=== PATIENT | male | born 1945 | race Caucasian/White ===

== ENCOUNTER 2021-09-19 10:38 | Outpatient (REF) | payer MEDICARE, SELFPAY ==
[2021-09-19 11:02] LABS: MANUAL DIFF FLAG NO
[2021-09-19 11:50] LABS: Basophils Percent Auto 0.6 % (0-2); Eosinophils Absolute Auto 0.2 X10*3/uL (0.0-0.4); Hematocrit 44.4 % (42.0-52.0); Imm Gran Abs Auto 0.03 X10*3/uL (0.00-0.03); Imm Gran Pct Auto 0.6 % (0.0-0.4); Lymphocytes Absolute Auto 1.4 X10*3/uL (1.2-4.9); Mean Corpuscular HGB Conc 31.5 g/dl (31.0-36.0); Mean Corpuscular Hemoglobin 26.4 pg (27.0-33.0); Mean Corpuscular Volume 83.8 fL (80.0-98.0); Mean Platelet Volume 10.8 fL (9.4-12.4); Monocytes Absolute Auto 0.5 X10*3/uL (0.1-1.2); Monocytes Percent Auto 9.4 % (2-11); Neutrophils Percent Auto 59.4 % (45-73); Platelet Count 157 X10*3/uL (160-400); Red Cell Distribution Width 15.9 % (11.0-16.0); White Blood Count 5.1 X10*3/uL (4.8-10.8)
[2021-09-19 12:15] LABS: Creatinine Urine 221.51 mg/dL; Microalbum/Creatinine Ratio Ur 114.2 ug/mg cr
[2021-09-19 12:23] LABS: Alanine Aminotransferase 21 U/L (0-40); Albumin Level 4.3 g/dL (3.5-5.0); Alkaline Phosphatase 96 U/L (39-117); Anion Gap 13 (12-20); Aspartate Amino Transferase 26 U/L (5-37); Bilirubin Total 0.8 mg/dL (0.0-1.0); Blood Urea Nitrogen 17 mg/dL (9-16); Calcium 9.8 mg/dL (8.4-10.2); Carbon Dioxide 27 mmol/L (22-29); Chloride 104 mmol/L (96-108); Cholesterol 135 mg/dL; Estimated Glomerular Filt Rate 54; Glucose Random 125 mg/dL (60-115); HDL Cholesterol 29 mg/dL; LDL Cholesterol Calculated 83 mg/dl; Potassium 5.2 mmol/L (3.3-5.1); Sodium 139 mmol/L (135-145); Total Protein 7.5 g/dL (6.5-8.0); Triglycerides 119 mg/dL
[2021-09-19 12:32] LABS: Free T4 (Free Thyroxine) 1.03 ng/dL (0.71-1.85); Thyroid Stimulating Hormone 3.99 uIU/mL (0.32-4.0)
[2021-09-19 12:50] LABS: Folate 6.7 ng/mL (> or = 4.0); Vitamin B12 355 pg/mL (200-900)
== END 2021-09-19 10:39 | disposition home or self-care (01) ==
LOC: HO.LAB 10:38
PROVIDERS: PCP Internal Medicine; Visit Provider Internal Medicine
DX: Z00.00 Encounter for general adult medical examination without abnormal findings (principal); E11.65 Type 2 diabetes mellitus with hyperglycemia; R13.10 Dysphagia, unspecified
CPT/HCPCS: 36415; 80053; 80061; 82043; 82607; 82746; 84439; 84443; 85025

== ENCOUNTER 2021-09-25 08:42 | Outpatient (REF) | payer MEDICARE, SELFPAY ==
--- NOTE | ~2021-09-25 | XR_ITS ---
EXAMINATION: XR CHEST CLINICAL INFORMATION: Short of breath COMPARISON: None TECHNIQUE: 2 views of the chest were obtained. FINDINGS: The lungs are well-expanded and clear. The heart size and pulmonary vascularity is normal. There is mild spondylosis dorsal spine. No lytic process seen. XR/XR chest 2V IMPRESSION: Unremarkable chest examination.
== END 2021-09-25 08:43 | disposition home or self-care (01) ==
LOC: HO.XRAY 08:42
PROVIDERS: PCP Internal Medicine; Visit Provider Internal Medicine
DX: R06.02 Shortness of breath (principal)
CPT/HCPCS: 71046

== ENCOUNTER → 2021-10-06 08:38 | Outpatient (REF) | payer MEDICARE, SELFPAY ==
--- NOTE | ~2021-10-06 | NM_ITS ---
Myocardial perfusion study Indication: Atrial fibrillation to evaluate for myocardial ischemia Technique: The patient was brought in for a Lexiscan perfusion study on 10/06/2021. Patient performed low-level exercise and was injected 0.4 mg of Lexiscan intravenously. Within a minute of injection, 30 mCi of sestamibi was given intravenously. Images were obtained using the SPECT gamma camera interlaced with the gating device. Images were obtained in supine position. Resting perfusion study was performed on 10/07/2021. Patient was administered 30 mCi of sestamibi intravenously at rest. Images were then obtained in supine position. Images obtained with and without CT attenuation. Total DLP 111 mGy-cm. Images were processed with the software and compared side to side in short axis, horizontal long axis and vertical long axis views. Findings: The stress perfusion study showed non attenuated images show mildly reduced uptake in the basal inferior and inferoseptal wall of the LV myocardium. Remainder of the LV myocardium is normally perfused. Attenuation corrected images show minimally uptake in the apex of the LV myocardium. The gated study was not performed due to underlying atrial fibrillation. LV cavity is normal in size. Resting study shows no change in perfusion pattern compared to stress perfusion study. Gating wasn't performed due to underlying atrial fibrillation The findings are consistent with no reversible defect suggestive of ischemia. Normal myocardial perfusion. NM/NM reji perf SPECT rest & str Impression: 1. Myocardial perfusion imaging study shows likely normal myocardial perfusion 2. Gated LVEF is was not obtained due to atrial fibrillation 3. Transient ischemic dilatation not present EKG is nondiagnostic for ischemia
--- NOTE | 2021-10-06 08:41 | CA_ITS ---
Acquisition Time: 2021-10-06 09:51:11 Total Exercise Time: 00:02:00 Test Indications: SOB Medications: SEE CHART Protocol: LEXISCAN Max HR: 114 BPM 79% of Pred: 143 BPM Max BP: 136/086 mmHG Max Work Load: 1.0 METS Pharmacological stress test with lexiscan injection, while sitting and kicking his legs, without anginal symptoms, with isolated PVCs, with normotensive response to injection, with nondiagnostic EKG for ischemia. Nuclear images pending. Test reviewed with Dr Chapin. Pt noted to have new finding of atrial fibrillation today. Resting heart rate < 100, easily rises with activity, such as kicking his legs while sitting. No report of palpitations. EKG ordered and obtained. Message sent to Dr Peters. Referred By: Melba Tobin Overread By: MELBA TOBIN
--- NOTE | 2021-10-06 09:51 | ECG_ITS ---
Test Reason : RHYTHM CHANGES Blood Pressure : / mmHG Vent. Rate : 102 BPM Atrial Rate : 000 BPM P-R Int : 000 ms QRS Dur : 064 ms QT Int : 346 ms P-R-T Axes : 000 057 254 degrees QTc Int : 450 ms Atrial fibrillation with rapid ventricular response Nonspecific T wave abnormality Abnormal ECG When compared with ECG of 12-FEB-2020 08:45, Atrial fibrillation has replaced Sinus rhythm Nonspecific T wave abnormality, worse in Inferior leads Nonspecific T wave abnormality, worse in Lateral leads Referred By: Melba Tobin Electronically Signed By:Tyler Chapin
== END ==
LOC: HO.CARD 08:38
PROVIDERS: Visit Provider Internal Medicine
DX: I48.91 Unspecified atrial fibrillation (principal); R13.10 Dysphagia, unspecified
CPT/HCPCS: 78452; 93005; 93017; A9500; J0280; J2785

== ENCOUNTER 2021-10-22 07:50 | Outpatient (REF) | payer MEDICARE, SELFPAY ==
--- NOTE | ~2021-10-22 | FL_ITS ---
EXAMINATION: XR FLUOROSCOPY UPPER GI WITH AIR CLINICAL INFORMATION: Dysphagia. COMPARISON: None TECHNIQUE: Routine upper GI air-contrast study in upright and lying position was performed. In addition a barium swallow was performed in upright view with barium coated turkey and thick barium. FINDINGS: Following oral administration of thick barium and effervescent granules there is normal propagation of bolus from the oral cavity through the pharynx, esophagus into stomach except for a prominent cricoesophageal sphincter. No laryngeal penetration or aspiration seen. On oral administration of thick barium and barium coated turkey in upright view there is normal oral mastication with propagation of bolus from the oral cavity through the pharynx, esophagus into stomach without any evidence of obstruction or narrowing. On placing patient supine and prone lying the course, caliber and peristalsis of the stomach, duodenal bulb and the sweep is normal. The mucosal pattern of stomach, duodenal bulb and the sweep is normal. There is mild gastroesophageal reflux but no hiatal hernia seen. FLUOROSCOPY TIME: 2.2 minutes. DOSE AREA PRODUCT: 38.493 uGy-m2 (microgray-meter squared). FL/FL upper GI w air IMPRESSION: Mild gastroesophageal reflux without hiatal hernia. Rest of the upper GI exam is unremarkable. Prominent cricoesophageal sphincter. No obstructive or constricting lesions seen in the esophagus. No laryngeal penetration or any barium retention in the valleculae or piriform sinuses.
== END 2021-10-22 07:51 | disposition home or self-care (01) ==
LOC: HO.XRAY 07:50
PROVIDERS: Visit Provider Internal Medicine
DX: R13.10 Dysphagia, unspecified (principal)
CPT/HCPCS: 74246

== ENCOUNTER → 2021-11-20 09:18 | Outpatient (REF) | payer MEDICARE, SELFPAY ==
--- NOTE | 2021-11-20 09:21 | CA_ITS ---
Transthoracic Echocardiogram Patient (Last, First, Middle): Augustus Reeder, Gender: Male Date of : 1945 Age: 75 Procedure Date: 11/20/2021 Procedure Type: Transthoracic Echocardiogram Location: OP Height: 165.1 cm Weight: 90.72 kg BSA: 1.98 m2 Heart Rate: bpm BP: 120 / 85 mmHg Customer Care Team Coach: YR/TO Referring MD: Carmen Peters MD Corrugator Helper: Leonel Deleon MD Symptoms: I48.91 - Unspecified atrial fibrillation Study Quality: Technically Difficult/Contrast ECG Rhythm: Atrial Fibrillation Conclusions: - 1. Normal LV systolic function 2. Limited evaluation of cardiac valves with normal cardiac valvular Doppler 3. Mildly dilated ascending aorta at 4 cm 4. Normal RV systolic pressure 5. No gross pericardial effusion Findings Procedure Information Contrast agent, definity, is being given per protocol without apparent complications. Left Ventricle Normal left ventricular size, thickness, and systolic function. The visually estimated ejection fraction is between 60-65%. Diastolic function is indeterminate on the basis of available data. Right Ventricle The right ventricle was not well visualized. Atria The left atrium was not well visualized. Interatrial shunt cannot be excluded. The right atrium was not well visualized. Aortic Valve The aortic valve was not well visualized. There is mild calcification of the aortic valve. There is no aortic valve stenosis. There is no aortic valve regurgitation. Mitral Valve The mitral valve was not well visualized. There is no mitral valve regurgitation. There is no mitral valve stenosis. Pulmonic Valve The pulmonic valve was not well visualized. Tricuspid Valve The tricuspid valve was not well visualized. There is trace tricuspid valve regurgitation. The right ventricular systolic pressure is normal. The right ventricular systolic pressure is 23 mmHg. There is no evidence of pulmonary hypertension. Great Vessels The pulmonary artery was not well visualized. There is mild dilatation of the ascending aorta measuring 4.00 cm. Venous The inferior vena cava is normal in size and collapses greater than 50% with inspiration. Pericardium/Pleural There is no evidence of pericardial effusion. Prior Study Comparison No prior study available for comparison. Measurements 2D Linear Measurements IVSd: 1.02 0.6-0.9/0.6-1.0 cm LVIDd: 3.53 3.9-5.3/4.2-5.9 cm LVIDd Index: 1.78 2.4-3.2/2.2-3.1 cm/m2 LVIDs: 2.24 2.0-3.6 cm LVPWd: 1.05 0.7-1.1 cm LA Diam: 3.30 2.7-3.8/3.0-4.0 cm LAIDs Index: 1.67 1.5-2.3 cm/m2 LV Mass: 136.89 67-162/88-224 g LV Mass Index: 69.14 43-95/49-115 g/m2 LVOT Diam: 2.00 3.0+(-)1.3 cm 2D Systolic Function EF 4C: 62.90 >55% EF 2C: 64.50 >55% EF BiP: 63.40 >55% Aortic Valve AoV Pk Ignacio: 1.08 AoV Mn Ignacio: 0.77 AoV VTI: 0.22 AoV Pk Grad: 5.00 Aov Mn Grad: 3.00 TAMARA Cont.VTI: 2.47 LVOT LVOT Pk Ignacio: 0.71 LVOT Mn Ignacio: 0.51 LVOT VTI: 0.18 LVOT Pk Grad: 2.00 LVOT Mn Grad: 1.00 LVOT Diam: 2.00 LVOT Area: 3.14 Right Ventricle TAPSE (mm): 18.30 TVS' Ignacio: 9.46 Tricuspid Valve TR Pk Ignacio: 2.24 TR Pk Grad: 20.00 RA Press: 3.00 RVSP: 23.00 Great Vessels Aorta Sinus of Valsalva: 3.31 2.0-3.[address] Ridge: 2.26 1.7-3.4 cm Ao Asc: 4.00 2.1-3.4 cm Ao Arch: 3.50 Updated in Other Vendor System with Status of Final Leonel Deleon MD electronically signed on 11/20/2021 11:52:42 AM with status of Final
== END ==
LOC: HO.CARD 09:18
PROVIDERS: Visit Provider Internal Medicine
DX: I48.91 Unspecified atrial fibrillation (principal)
CPT/HCPCS: 93306; Q9957

== ENCOUNTER → 2021-11-25 12:48 | Outpatient (BNVA) | payer MEDICARE, SELFPAY | PROVIDERS: PCP Internal Medicine; Referring Provider Internal Medicine; Visit Provider Internal Medicine | DX: I48.19 Other persistent atrial fibrillation (principal); I10 Essential (primary) hypertension; E11.8 Type 2 diabetes mellitus with unspecified complications | CPT/HCPCS: 93005; 99202 ==

== ENCOUNTER 2021-12-04 08:48 | Day surgery (SDC) | payer MEDICARE, SELFPAY ==
[2021-11-28 14:42] VITALS: BMI 34.6
--- NOTE | 2021-12-03 09:18 | HO.ANESPROP2 ---
Documented by User: Kortney Madera NP 12/03/21 09:20 HPI - Anesthesia Eval Consult details Narrative: 76yo M for Cardioversion Eliquis for afib PMFSH Active Problems Active Problems: All Active Problems (Updated 11/28/21 @ 14:42 by Cande Corado RN) Facial dermatitis (Acute) Somatic dysfunction of right sacroiliac joint (Acute) Rash (Acute) Dysphagia (Acute) SOB (shortness of breath) on exertion (Acute) Cognitive impairment (Acute) Afib (Acute) Persistent atrial fibrillation (Acute) Essential hypertension (Acute) Type 2 diabetes mellitus with unspecified complications (Acute) Annual physical exam (Acute) Anxiety and depression (Acute) Hypercholesterolemia (Acute) Obesity (BMI 30-39.9) (Acute) Hypertension (Acute) Type 2 diabetes mellitus with hyperglycemia (Acute) Past Medical History Medical History (Updated 12/03/21 @ 09:20 by Kortney Madera NP) Afib Annual physical exam Anxiety and depression COVID-19 vaccine series completed Hypercholesterolemia Hypertension Non Hodgkin's lymphoma Obesity (BMI 30-39.9) Peptic ulcer disease Thrombocytopenia Type 2 diabetes mellitus with hyperglycemia Vitamin D deficiency Family History Family History Father Lung cancer Mother Breast cancer Sister Breast cancer Brother No problems noted. Sister No problems noted. Son No problems noted. Daughter No problems noted. Surgical History Surgical History (Updated 11/28/21 @ 14:15 by Cande Corado RN) H/O colonoscopy H/O lymph node biopsy History of esophagogastroduodenoscopy (EGD) History of shoulder surgery Hx of cataract extraction Social History Social History Housing: House Are you a primary nurse wound care to a significant other at home: No Do you presently have visiting nurse or other home services: No Alcohol intake: never Patient Tobacco Use Status: Never used Tobacco e-Cigarette/Vaping Use: Never Used Second Hand Smoke Exposure: No service: No Current occupational status: retired Meds Allergies Allergy/AdvReac Type Severity Reaction Status Date / Time gabapentin AdvReac Intermediate lethargy Verified 11/28/21 14:39 lisinopril AdvReac Intermediate Cough Verified 11/28/21 14:39 metformin AdvReac Intermediate lethargy Verified 11/28/21 14:39 Home Medications Medication Instructions Recorded Confirmed Last Taken Type cholecalciferol (vitamin D3) 50 50 mcg PO DAILY 09/17/20 11/28/21 Unknown History mcg (2,000 unit) capsule alclometasone 0.05 % topical cream 1 appl TOPICAL BID 09/19/21 11/28/21 Unknown History clindamycin 1 %-niacinamide 4 % 1 ea TOPICAL DAILY 09/19/21 11/28/21 Unknown History lotion metronidazole 0.75 % lotion 1 appl TOPICAL BID 09/19/21 11/28/21 Unknown History Exam Exam Date and Time: December 03, 202118 Height,Weight and Vital Signs: Height 5 ft 5 in Weight 94.347 kg Narrative Narrative: EKG 11/2021 atrial fibrillation at 90/Min; PVCs versus aberrant conduction.? Nonspecific ST-T changes. ECHO 11/2021 Conclusions: - 1.? Normal LV systolic function? 2. Limited evaluation of cardiac valves with normal cardiac? ? ? valvular Doppler ? 3. Mildly dilated ascending aorta at 4 cm? 4.? Normal RV systolic pressure? 5.? No gross pericardial effusion? Airway Loose/Missing/Broken Teeth: Lower Assessment and Plan Assessment Anesthesia Assessment: Chart Reviewed Documented by User: Chris Conde MD 12/04/21 13:30 HPI - Anesthesia Eval Consult details Narrative: 76yo M for Cardioversion post nasal drip, asymptomatic currently dysphagia Eliquis for afib [facility] Past Medical History Medical History (Updated 12/03/21 @ 09:20 by Kortney Madera NP) Afib Annual physical exam Anxiety and depression COVID-19 vaccine series completed Hypercholesterolemia Hypertension Non Hodgkin's lymphoma Obesity (BMI 30-39.9) Peptic ulcer disease Thrombocytopenia Type 2 diabetes mellitus with hyperglycemia Vitamin D deficiency Family History Family History Father Lung cancer Mother Breast cancer Sister Breast cancer Brother No problems noted. Sister No problems noted. Son No problems noted. Daughter No problems noted. Family history of problems with anesthesia: No Surgical History Surgical History (Updated 11/28/21 @ 14:15 by Cande Corado RN) H/O colonoscopy H/O lymph node biopsy History of esophagogastroduodenoscopy (EGD) History of shoulder surgery Hx of cataract extraction History of Problems with Anesthesia: No Social History Social History Housing: House Are you a primary nurse wound care to a significant other at home: No Do you presently have visiting nurse or other home services: No Alcohol intake: never Patient Tobacco Use Status: Never used Tobacco e-Cigarette/Vaping Use: Never Used Second Hand Smoke Exposure: No service: No Current occupational status: retired [employer] Allergies Allergy/AdvReac Type Severity Reaction Status Date / Time gabapentin AdvReac Intermediate lethargy Verified 11/28/21 14:39 lisinopril AdvReac Intermediate Cough Verified 11/28/21 14:39 metformin AdvReac Intermediate lethargy Verified 11/28/21 14:39 Home Medications Medication Instructions Recorded Confirmed Last Taken Type cholecalciferol (vitamin D3) 50 50 mcg PO DAILY 09/17/20 11/28/21 Unknown History mcg (2,000 unit) capsule alclometasone 0.05 % topical cream 1 appl TOPICAL BID 09/19/21 11/28/21 Unknown History clindamycin 1 %-niacinamide 4 % 1 ea TOPICAL DAILY 09/19/21 11/28/21 Unknown History lotion metronidazole 0.75 % lotion 1 appl TOPICAL BID 09/19/21 11/28/21 Unknown History Exam Airway Mallampati Class: III TM Dist: >3cm Partial: Upper and Lower Loose/Missing/Broken Teeth: Yes (Poor dentition , anchors in situ ) Heart: Irregular Lungs: b/l breath sounds Assessment and Plan Assessment Anesthesia Assessment: Anesthesia Plan Discussed Final Anesthetic Review Family History of Problems with Anesthesia: No History of Problems with Anesthesia: No NPO: Yes ASA Class: III Final Preanesthetic Review: Meds/Allgs Chart Reviewed, Consent Obtained/Reviewed and Anes Risks/Benef Reviewed Patient Risk: High Procedure Risk: Intermediate Anesthetic Plan Anesthetic Plan: MAC: Disposition: Standard PACU
[2021-12-04 09:04] VITALS: BP 173/98; PULSE 101; RESP 17; TEMP 36.2; O2SAT 97
[2021-12-04 09:17] LABS: Glucose, Whole Blood 129 mg/dL (60-115)
[2021-12-04] MEDS: Lactated Ringers 1,000 ML 50 ML IVCONT (09:36)
--- NOTE | 2021-12-04 10:31 | PC.NURSE ---
repeat b/p 184/106 left 173/105 losartan ordered by rip sawyer
--- NOTE | 2021-12-04 10:33 | MHC.SHP ---
Pre-Procedural Eval Section A Date of Service: 12/04/21 The patient is an INPATIENT: No Section B Chief Complaint: afib Details of Present Illness: Review recent office note Allergies: Allergies Allergy/AdvReac Type Severity Reaction Status Date / Time gabapentin AdvReac Intermediate lethargy Verified 11/28/21 14:39 lisinopril AdvReac Intermediate Cough Verified 11/28/21 14:39 metformin AdvReac Intermediate lethargy Verified 11/28/21 14:39 Review of Systems Review of Systems Comment: No changes since last seen. Exam Exam Comment: No changes since last seen. Plan I have reviewed the history and physical and performed a pertinent physical examination on my patient. No changes have occurred unless specified.
--- NOTE | 2021-12-04 10:53 | ECG_ITS ---
Test Reason : S/P CARDIOVERSION Blood Pressure : / mmHG Vent. Rate : 079 BPM Atrial Rate : 079 BPM P-R Int : 196 ms QRS Dur : 068 ms QT Int : 380 ms P-R-T Axes : 071 042 -21 degrees QTc Int : 435 ms Sinus rhythm with occasional Premature ventricular complexes Nonspecific T wave abnormality Abnormal ECG When compared with ECG of 06-OCT-2021 09:54, Sinus rhythm has replaced Atrial fibrillation Referred By: Daniel Del Rosario Electronically Signed By:DANIEL DEL ROSARIO
--- NOTE | 2021-12-04 10:54 | HO.CARDIVERS ---
Cardioversion Procedure Note Cardioversion Date of Procedure: 12/04/2021 Ordering Provider: Dr. Su. Performing Provider: Dr. Su. Indication for Procedure: Symptomatic atrial fibrillation Pre-Op Diagnosis: Atrial fibrillation Post-Op Diagnosis: Sinus rhythm History: See full office note Consent: Informed consent obtained. Procedure: After informed consent was obtained, patient was taken to the PACU. The patient was then positioned appropriately. The cardioversion pads were placed in anteroposterior position. Once under anesthesia, 120 joules of synchronized shock was administered. The rhythm converted from atrial fibrillation to sinus rhythm. Patient remained in sinus rhythm after the end of procedure. Complications: None. Impression: Successful cardioversion from atrial fibrillation to sinus rhythm. Recommendations: Start Amiodarone. Will arrange outpatient follow-up. Blood pressure was running high and he will need additional medications as outpatient.
[2021-12-04 11:03] VITALS: BP 147/89; PULSE 76; RESP 19; TEMP 36.4; O2SAT 98
[2021-12-04 11:08] VITALS: BP 137/83; PULSE 74; RESP 17; O2SAT 98
[2021-12-04 11:13] VITALS: BP 153/82; PULSE 73; RESP 17; O2SAT 98
[2021-12-04] MEDS: Amiodarone HCL 200 MG TABLET 400 MG PO (11:15)
[2021-12-04 11:18] VITALS: BP 145/79; PULSE 70; RESP 17; O2SAT 97
[2021-12-04 11:33] VITALS: BP 144/77; PULSE 71; RESP 17; TEMP 36.2; O2SAT 97
== END 2021-12-04 11:55 | disposition home or self-care (01) ==
PROVIDERS: PCP Internal Medicine; Visit Provider Internal Medicine
PROC: 5A2204Z Restoration of Cardiac Rhythm, Single (ICD-10-PCS; principal; 2021-12-04 10:30)
DX: I48.19 Other persistent atrial fibrillation (principal); Z79.01 Long term (current) use of anticoagulants; I10 Essential (primary) hypertension; E11.65 Type 2 diabetes mellitus with hyperglycemia; Z79.84 Long term (current) use of oral hypoglycemic drugs; Z79.899 Other long term (current) drug therapy
CPT/HCPCS: 82947; 92960; 93005; J2370

== ENCOUNTER 2021-12-05 22:02 | Inpatient (IN) | payer MEDICARE, SELFPAY ==
[2021-12-05] VITALS (7 sets, daily range): BP systolic 144–198; BP diastolic 81–94; PULSE 94–102; RESP 18–36; TEMP 36.6; O2SAT 85–979; BMI 34.6
--- NOTE | ~2021-12-05 | XR_ITS ---
EXAMINATION: XR CHEST CLINICAL INFORMATION: Shortness of breath COMPARISON: Chest x-ray 09/25/2021 TECHNIQUE: Frontal portable view of the chest was obtained. 2300 hours FINDINGS: Heart size is normal. Cardiac mediastinal contours are normal. There is diffuse increased interstitial lung markings consistent with interstitial edema. No pleural effusion. No focal consolidation. XR/XR chest 1V IMPRESSION: Increased lung markings consistent with interstitial edema.
--- NOTE | 2021-12-05 22:07 | ECG_ITS ---
Test Reason : CP Blood Pressure : / mmHG Vent. Rate : 101 BPM Atrial Rate : 101 BPM P-R Int : 204 ms QRS Dur : 068 ms QT Int : 326 ms P-R-T Axes : 077 046 004 degrees QTc Int : 422 ms Sinus tachycardia with Premature supraventricular complexes Nonspecific ST and T wave abnormality Abnormal ECG When compared with ECG of 04-DEC-2021 11:00, Premature ventricular complexes are no longer Present Premature supraventricular complexes are now Present Referred By: Lucina Kumar Electronically Signed By:Tyler Chapin
--- NOTE | 2021-12-05 22:18 | ED.GENADULT ---
HPI - General Adult General Chief complaint: General Medical Stated complaint: SOB Time Seen by Provider: 12/05/21 22:07 Source: patient and family Mode of arrival: ambulatory History of Present Illness HPI narrative: 76-year-old male with history of diabetes, hypertension,anxiety, depression, atrial fibrillation and status post cardioversion yesterday, 12/04, and states that he experienced chest pain yesterday that began to improve but then returned today with increasing shortness of breath. Patient denies any new cough, palpitations, history of COPD your asthma and denies any home oxygen use. patient also reports abdominal discomfort. Related Data Home Medications Medication Instructions Recorded Confirmed cholecalciferol (vitamin D3) 50 50 mcg PO DAILY 09/17/20 11/28/21 mcg (2,000 unit) capsule alclometasone 0.05 % topical cream 1 appl TOPICAL BID 09/19/21 11/28/21 clindamycin 1 %-niacinamide 4 % 1 ea TOPICAL DAILY 09/19/21 11/28/21 lotion metronidazole 0.75 % lotion 1 appl TOPICAL BID 09/19/21 11/28/21 Previous Rx's Medication Instructions Recorded atorvastatin 40 mg tablet 40 mg PO DAILY #90 tab 09/19/21 glipizide 5 mg tablet, extended 5 mg PO BID #180 tab 09/19/21 release 24 hr metoprolol succinate 100 mg 100 mg PO DAILY 90 Days #90 tab 09/19/21 tablet,extended release 24 hr pioglitazone 15 mg tablet 15 mg PO DAILY 90 Days #90 tab 09/19/21 apixaban 5 mg tablet (Eliquis) 5 mg PO BID 90 Days #180 tab 11/25/21 amiodarone 200 mg tablet 200 mg PO DAILY #90 tab 12/04/21 amiodarone 400 mg tablet 400 mg PO BID 14 Days #28 tab 12/04/21 amlodipine 5 mg tablet (Norvasc) 5 mg PO DAILY 90 Days #90 tab 12/04/21 losartan 50 mg tablet 50 mg PO DAILY 90 Days #90 tab 12/04/21 Allergies Allergy/AdvReac Type Severity Reaction Status Date / Time gabapentin AdvReac Intermediate lethargy Verified 11/28/21 14:39 lisinopril AdvReac Intermediate Cough Verified 11/28/21 14:39 metformin AdvReac Intermediate lethargy Verified 04/22/22 14:39 Review of Systems Review of Systems: Pertinent positives and negatives as stated in HPI and 10 point review of systems is otherwise negative. PMFSH Past Medical History Source: nursing notes reviewed Medical History Afib Annual physical exam Anxiety and depression COVID-19 vaccine series completed Hypercholesterolemia Hypertension Non Hodgkin's lymphoma Obesity (BMI 30-39.9) Peptic ulcer disease Thrombocytopenia Type 2 diabetes mellitus with hyperglycemia Vitamin D deficiency Surgical History H/O colonoscopy H/O lymph node biopsy History of esophagogastroduodenoscopy (EGD) History of shoulder surgery Hx of cataract extraction Family History Family History Father Lung cancer Mother Breast cancer Sister Breast cancer Brother No problems noted. Sister No problems noted. Son No problems noted. Daughter No problems noted. Social History Social History Housing: House Are you a primary physician locums urgent care to a significant other at home: No Do you presently have visiting nurse or other home services: No Alcohol intake: never Patient Tobacco Use Status: Never used Tobacco e-Cigarette/Vaping Use: Never Used Second Hand Smoke Exposure: No Advance Directives: No Advance Directives Information Provided: No service: No Current occupational status: retired Physical Exam ED Vital Signs: Vital Signs - 24 hr 12/05/21 22:10 12/05/21 22:14 12/05/21 22:16 Temperature 98 F Pulse Rate 102 H 99 Respiratory Rate 18 36 H Blood Pressure 198/87 H 198/87 H Pulse Oximetry 85 L 95 95 12/05/21 22:26 12/05/21 22:47 12/05/21 23:07 Temperature Pulse Rate 97 96 94 Respiratory Rate 25 H 25 H 24 H Blood Pressure 185/94 H 174/81 H 144/83 H Pulse Oximetry 97 98 97 BMI result Body Mass Index 34.6 VITAL SIGNS: Reviewed. GENERAL: Well developed, well nourished, in no acute distress. HEAD: Normocephalic/atraumatic EYES: PERRLA, EOMI EARS: Ext canals without abnormality OROPHARYNX: no oral lesions noted, posterior pharynx clear LUNGS: Bibasilar decrease in breath sounds with obvious rales, tachypnea noted. SpO2<85> and then placed on 4 L via nasal cannula with improvement to 95% CARDIOVASCULAR: Regular rate and rhythm without noted murmurs, no JVD or lower extremity edema. ABDOMEN: Soft, non-tender, non-distended with bowel sounds. MUSCULOSKELETAL: No tenderness, deformities, or effusions noted on gross inspection. EXTREMITIES: No cyanosis, clubbing or edema. SKIN: Inspection of the skin reveals no rashes NEUROLOGIC: Alert and oriented x 4. Strength and sensation to light touch were grossly intact x 4. Course Course Course Narrative: 76-year-old male with history and clinical presentation most suggestive of acute CHF exacerbation. And on re-evaluation after placed on BiPAP and nitro patient states his breathing has significantly improved and states that he feels much better. On review of investigations there is no leukocytosis, patient's BNP is noted to be elevated in conjunction with clinical findings on lung auscultation and chest x-ray that further support CHF exacerbation. In addition, patient is noted to be COVID-19 positive. Patient was informed of all results and findings, he received both nitropaste as well as Lasix for his CHF exacerbation. Will attempt to titrate off of BiPAP as patient is feeling better. I do not suspect acute cardiac ischemia. There is no leukocytosis and suspect that patient's abdominal symptoms are secondary to his acute respiratory failure with tachypnea and increased work of breathing. Abdomen is otherwise benign. I discussed this case with the inpatient hospitalist who accepts admission. Medical Decision Making Lab Data Result diagrams: 12/05/21 22:25 12/05/21 22:25 Labs: Lab Results 12/05/21 12/05/21 12/05/21 Range/Units 22:24 22:24 22:24 WBC (4.8-10.8) X10*3/uL RBC (4.60-5.80) X10*6/uL Hgb (14.0-18.0) g/dl Hct (42.0-52.0) % MCV (80.0-98.0) fL MCH (27.0-33.0) pg MCHC (31.0-36.0) g/dl RDW (11.0-16.0) % Plt Count (160-400) X10*3/uL MPV (9.4-12.4) fL Immature Gran % (Auto) (0.0-0.4) % Neut % (Auto) (45-73) % Lymph % (Auto) (20-40) % [place] % (Auto) (2-11) % Eos % (Auto) (0-4) % Baso % (Auto) (0-2) % Lymph # (Auto) (1.2-4.9) X10*3/uL [place] # (Auto) (0.1-1.2) X10*3/uL Eos # (Auto) (0.0-0.4) X10*3/uL Baso # (Auto) (0.0-0.2) X10*3/uL Abs Immat Gran (auto) (0.00-0.03) X10*3/uL Absolute Neuts (auto) (2.0-8.3) x10*3/uL Absolute Nucleated RBC (0.0-0.012) X10*3/uL Nucleated RBC % (auto) (0.0-0.2) /100WBC PT 20.2 H (9.9-13.0) SEC INR 1.8 H (0.9-1.1) Sodium (135-145) mmol/L Potassium (3.3-5.1) mmol/L Chloride (96-108) mmol/L Carbon Dioxide (22-29) mmol/L Anion Gap (12-20) BUN (9-16) mg/dL Creatinine (0.5-1.4) mg/dL Estim Creat Clear Calc Estimated GFR Random Glucose (60-115) mg/dL Calcium (8.4-10.2) mg/dL Total Bilirubin (0.0-1.0) mg/dL AST (5-37) U/L ALT (0-40) U/L Alkaline Phosphatase (39-117) U/L Troponin I High Sens 6.5 (<3.5-35.0) ng/L B-Natriuretic Peptide 347 H (<100) pg/mL Total Protein (6.5-8.0) g/dL Albumin (3.5-5.0) g/dL COVID-19 (YURIY) (Negative) COVID-19 Clin Com Influenza Type A (DICKSON) (Negative) Influenza Type B (DICKSON) (Negative) Influenza A & B Note 12/05/21 12/05/21 12/05/21 Range/Units 22:25 22:25 22:34 WBC 9.8 (4.8-10.8) X10*3/uL RBC 4.90 (4.60-5.80) X10*6/uL Hgb 13.4 L (14.0-18.0) g/dl Hct 40.8 L (42.0-52.0) % MCV 83.3 (80.0-98.0) fL MCH 27.3 (27.0-33.0) pg MCHC 32.8 (31.0-36.0) g/dl RDW 15.0 (11.0-16.0) % Plt Count 138 L (160-400) X10*3/uL MPV 10.4 (9.4-12.4) fL Immature Gran % (Auto) 0.7 H (0.0-0.4) % Neut % (Auto) 75.5 H (45-73) % Lymph % (Auto) 13.5 L (20-40) % [place] % (Auto) 9.2 (2-11) % Eos % (Auto) 0.8 (0-4) % Baso % (Auto) 0.3 (0-2) % Lymph # (Auto) 1.3 (1.2-4.9) X10*3/uL [place] # (Auto) 0.9 (0.1-1.2) X10*3/uL Eos # (Auto) 0.1 (0.0-0.4) X10*3/uL Baso # (Auto) 0.0 (0.0-0.2) X10*3/uL Abs Immat Gran (auto) 0.07 H (0.00-0.03) X10*3/uL Absolute Neuts (auto) 7.4 (2.0-8.3) x10*3/uL Absolute Nucleated RBC 0.000 (0.0-0.012) X10*3/uL Nucleated RBC % (auto) 0.0 (0.0-0.2) /100WBC PT (9.9-13.0) SEC INR (0.9-1.1) Sodium 132 L (135-145) mmol/L Potassium 4.6 (3.3-5.1) mmol/L Chloride 99 (96-108) mmol/L Carbon Dioxide 23 (22-29) mmol/L Anion Gap 15 (12-20) BUN 20 H (9-16) mg/dL Creatinine 1.37 (0.5-1.4) mg/dL Estim Creat Clear Calc 46.9 Estimated GFR 50 Random Glucose 295 H D (60-115) mg/dL Calcium 9.2 D (8.4-10.2) mg/dL Total Bilirubin 1.1 H (0.0-1.0) mg/dL AST 28 (5-37) U/L ALT 26 (0-40) U/L Alkaline Phosphatase 107 (39-117) U/L Troponin I High Sens (<3.5-35.0) ng/L B-Natriuretic Peptide (<100) pg/mL Total Protein 7.5 (6.5-8.0) g/dL Albumin 4.2 (3.5-5.0) g/dL COVID-19 (YURIY) (Negative) COVID-19 Clin Com Influenza Type A (DICKSON) Negative (Negative) Influenza Type B (DICKSON) Negative (Negative) Influenza A & B Note See Note 12/05/21 Range/Units 22:34 WBC (4.8-10.8) X10*3/uL RBC (4.60-5.80) X10*6/uL Hgb (14.0-18.0) g/dl Hct (42.0-52.0) % MCV (80.0-98.0) fL MCH (27.0-33.0) pg MCHC (31.0-36.0) g/dl RDW (11.0-16.0) % Plt Count (160-400) X10*3/uL MPV (9.4-12.4) fL Immature Gran % (Auto) (0.0-0.4) % Neut % (Auto) (45-73) % Lymph % (Auto) (20-40) % [place] % (Auto) (2-11) % Eos % (Auto) (0-4) % Baso % (Auto) (0-2) % Lymph # (Auto) (1.2-4.9) X10*3/uL [place] # (Auto) (0.1-1.2) X10*3/uL Eos # (Auto) (0.0-0.4) X10*3/uL Baso # (Auto) (0.0-0.2) X10*3/uL Abs Immat Gran (auto) (0.00-0.03) X10*3/uL Absolute Neuts (auto) (2.0-8.3) x10*3/uL Absolute Nucleated RBC (0.0-0.012) X10*3/uL Nucleated RBC % (auto) (0.0-0.2) /100WBC PT (9.9-13.0) SEC INR (0.9-1.1) Sodium (135-145) mmol/L Potassium (3.3-5.1) mmol/L Chloride (96-108) mmol/L Carbon Dioxide (22-29) mmol/L Anion Gap (12-20) BUN (9-16) mg/dL Creatinine (0.5-1.4) mg/dL Estim Creat Clear Calc Estimated GFR Random Glucose (60-115) mg/dL Calcium (8.4-10.2) mg/dL Total Bilirubin (0.0-1.0) mg/dL AST (5-37) U/L ALT (0-40) U/L Alkaline Phosphatase (39-117) U/L Troponin I High Sens (<3.5-35.0) ng/L B-Natriuretic Peptide (<100) pg/mL Total Protein (6.5-8.0) g/dL Albumin (3.5-5.0) g/dL COVID-19 (YURIY) Positive A (Negative) COVID-19 Clin Com See Note Influenza Type A (DICKSON) (Negative) Influenza Type B (DICKSON) (Negative) Influenza A & B Note ECG Data Attestation: I personally reviewed and interpreted this ECG as follows: Prior ECG tracings: available for review Interpretation: Sinus tachycardia, HR-101, no STEMI, QRS/QTC are within normal limits Critical Care Time Critical Care Time Critical Care Time: Yes Total Critical Care Time: 30 Attestation: I personally attest to this time spent taking care of the patient. Discharge Plan Discharge Clinical Impression: Acute respiratory failure with hypoxia, CHF exacerbation, Lab test positive for detection of COVID-19 virus Patient Disposition: Admitted As Inpatient Prescriptions: No Action amiodarone 400 mg tablet 400 mg PO BID 14 Days Qty: 28 0RF amiodarone 200 mg tablet 200 mg PO DAILY Qty: 90 0RF losartan 50 mg tablet 50 mg PO DAILY 90 Days Qty: 90 3RF amlodipine [Norvasc] 5 mg tablet 5 mg PO DAILY 90 Days Qty: 90 1RF cholecalciferol (vitamin D3) 50 mcg (2,000 unit) capsule 50 mcg PO DAILY 0RF alclometasone 0.05 % cream 1 appl topical BID 0RF clindamycin-niacinamide 1-4 % lotion 1 ea topical DAILY 0RF metronidazole 0.75 % lotion 1 appl topical BID 0RF atorvastatin 40 mg tablet 40 mg PO DAILY Qty: 90 3RF pioglitazone 15 mg tablet 15 mg PO DAILY 90 Days Qty: 90 2RF metoprolol succinate 100 mg tablet extended release 24 hr 100 mg PO DAILY 90 Days Qty: 90 2RF glipizide 5 mg tablet extended release 24 hr 5 mg PO BID Qty: 180 2RF Eliquis 5 mg tablet 5 mg PO BID 90 Days Qty: 180 3RF
[2021-12-05] MEDS: Nitroglycerin 2 % Oint 1 GM Packet 0.5 INCH TRANSDERMA (22:23)
[2021-12-05 22:30] LABS: Basophils Percent Auto 0.3 % (0-2); Eosinophils Absolute Auto 0.1 X10*3/uL (0.0-0.4); Eosinophils Percent Auto 0.8 % (0-4); Mean Corpuscular Volume 83.3 fL (80.0-98.0); PLT CLUMP 1; SCAN SMEAR FLAG 1
[2021-12-05 22:32] LABS: Hematocrit 40.8 % (42.0-52.0); Hemoglobin 13.4 g/dl (14.0-18.0); Imm Gran Abs Auto 0.07 X10*3/uL (0.00-0.03); Imm Gran Pct Auto 0.7 % (0.0-0.4); Lymphocytes Absolute Auto 1.3 X10*3/uL (1.2-4.9); Lymphocytes Percent Auto 13.5 % (20-40); Mean Corpuscular HGB Conc 32.8 g/dl (31.0-36.0); Mean Corpuscular Hemoglobin 27.3 pg (27.0-33.0); Mean Platelet Volume 10.4 fL (9.4-12.4); Monocytes Absolute Auto 0.9 X10*3/uL (0.1-1.2); Monocytes Percent Auto 9.2 % (2-11); Neutrophils Absolute Auto 7.4 x10*3/uL (2.0-8.3); Neutrophils Percent Auto 75.5 % (45-73)
[2021-12-05 22:37] LABS: INTERNATIONAL NORM RATIO 1.8 (0.9-1.1); Prothrombin Time 20.2 SEC (9.9-13.0)
[2021-12-05 22:41] LABS: MANUAL DIFF FLAG NO; Platelet Count 138 X10*3/uL (160-400); White Blood Count 9.8 X10*3/uL (4.8-10.8)
[2021-12-05 22:46] LABS: Alanine Aminotransferase 26 U/L (0-40); Albumin Level 4.2 g/dL (3.5-5.0); Alkaline Phosphatase 107 U/L (39-117); Anion Gap 15 (12-20); Aspartate Amino Transferase 28 U/L (5-37); Bilirubin Total 1.1 mg/dL (0.0-1.0); Blood Urea Nitrogen 20 mg/dL (9-16); Calcium 9.2 mg/dL (8.4-10.2); Carbon Dioxide 23 mmol/L (22-29); Chloride 99 mmol/L (96-108); Creatinine Clr Calc Pharmacy 46.9; Estimated Glomerular Filt Rate 50; Glucose Random 295 mg/dL (60-115); Potassium 4.6 mmol/L (3.3-5.1); Sodium 132 mmol/L (135-145); Total Protein 7.5 g/dL (6.5-8.0)
[2021-12-05 22:51] LABS: B Type Natriuretic Peptide 347 pg/mL (<100); Troponin-I High Sensitivity 6.5 ng/L (<3.5-35.0)
[2021-12-05 22:52] LABS: COVID-19 Test Positive (Negative)
[2021-12-05 23:00] LABS: IDNOW Serial# 16C4AD1C; Influenza A Negative (Negative); Influenza B2 Negative (Negative)
[2021-12-05] MEDS: Furosemide 100 MG/10 ML VIAL 60 MG IVPUSH (23:10)
--- NOTE | 2021-12-05 23:30 | PM.IMHP ---
History of Present Illness Date of Service: 12/05/21 Chief Complaint: Shortness of breath 76-year-old male with a past medical history of hypertension, hyperlipidemia, diabetes, history of AFib on Eliquis status post cardioversion on 12/04/2021, anxiety, depression, vitamin-D deficiency, peptic ulcer disease, non-Hodgkin's lymphoma, dysphagia presented to the hospital today with a chief complaint of shortness of breath. Patient reported that he had cardioversion for AFib yesterday. For the past 1 day he has been having shortness of breath which has been gradually worsening. Complains of dyspnea on exertion. Also has sided mild chest discomfort. Denies any cough or sputum production. Denies any fevers and chills. Denies any GI symptoms. Denies any recent travel or sick contacts. Review of all other systems is negative except mentioned above ER course: Per ER team patient on presentation noted to have coarse breath sounds with rales; saturating 85% on room air; tachypneic; patient was placed on BiPAP briefly; lab showed elevated proBNP, chest x-ray showed congestion; patient was given nitro patch briefly, Lasix. Patient was transitioned to nasal cannula, BiPAP removed. Also noted to have COVID-19 positive. Admitted to the hospital for further management PMFSH Medical History Afib Annual physical exam Anxiety and depression COVID-19 vaccine series completed Hypercholesterolemia Hypertension Non Hodgkin's lymphoma Obesity (BMI 30-39.9) Peptic ulcer disease Thrombocytopenia Type 2 diabetes mellitus with hyperglycemia Vitamin D deficiency Family History Father Lung cancer Mother Breast cancer Sister Breast cancer Brother No problems noted. Sister No problems noted. Son No problems noted. Daughter No problems noted. Surgical History H/O colonoscopy H/O lymph node biopsy History of esophagogastroduodenoscopy (EGD) History of shoulder surgery Hx of cataract extraction Social History Housing: House Are you a primary career resource specialist to a significant other at home: No Do you presently have visiting nurse or other home services: No Alcohol intake: never Patient Tobacco Use Status: Never used Tobacco e-Cigarette/Vaping Use: Never Used Second Hand Smoke Exposure: No Advance Directives: No Advance Directives Information Provided: No service: No Current occupational status: retired Meds Allergies Allergy/AdvReac Type Severity Reaction Status Date / Time gabapentin AdvReac Intermediate lethargy Verified 11/28/21 14:39 lisinopril AdvReac Intermediate Cough Verified 11/28/21 14:39 metformin AdvReac Intermediate lethargy Verified 11/28/21 14:39 Active Medications: Current Medications Dexamethasone Sodium Phosphate (Dexamethasone Sod Phosphate 4 Mg/Ml Vial) 6 mg IVPUSH DAILY [facility] Dextrose (Dextrose 50 % 25 Gm/50 Ml Syringe) 25 gm IVPUSH Q15M PRN; Protocol PRN Reason: per Hypoglycemia Standing Ord. Glucose (Glucose Gel 15 Gm Gel..Gram.) 15 gm PO Q15M PRN; Protocol PRN Reason: per Hypoglycemia Standing Ord. Insulin Human Lispro (Insulin Lispro 100 Unit/Ml 3 Ml Vial) 0 unit SUBCUT QIDACHS [facility]; Protocol Home Medications Medication Instructions Recorded Confirmed Last Taken Type cholecalciferol (vitamin D3) 50 50 mcg PO DAILY 09/17/20 11/28/21 Unknown History mcg (2,000 unit) capsule alclometasone 0.05 % topical cream 1 appl TOPICAL BID 09/19/21 11/28/21 Unknown History clindamycin 1 %-niacinamide 4 % 1 ea TOPICAL DAILY 09/19/21 11/28/21 Unknown History lotion metronidazole 0.75 % lotion 1 appl TOPICAL BID 09/19/21 11/28/21 Unknown History Physical Exam Vital Signs and Narrative: Vital Signs: Last Vital Signs Temp 98 F 12/05/21 22:10 Pulse 94 12/05/21 23:07 Resp 24 H 12/05/21 23:07 BP 144/83 H 12/05/21 23:07 Pulse Ox 97 12/05/21 23:07 BMI result Body Mass Index 34.6 Gen: Appears be in no acute distress. On supplemental oxygen. Speaks in full sentences. HEENT: NCAT, Moist mucosa. Pulmonary: Coarse breath sounds. CVS: Normal S1-S2 Abdomen: BS+, Soft, Nontender Extremities: Warm well perfused Neuro: Alert and awake. Grossly nonfocal Results Labs CBC and Chem 7: 12/06/21 06:01 12/06/21 06:01 Labs: Laboratory Results - last 24 hr 12/05/21 12/05/21 12/05/21 22:24 22:24 22:24 MCV MCH MCHC RDW Plt Count MPV Immature Gran % (Auto) Neut % (Auto) Lymph % (Auto) [place] % (Auto) Eos % (Auto) Baso % (Auto) Lymph # (Auto) [place] # (Auto) Eos # (Auto) Baso # (Auto) Abs Immat Gran (auto) Absolute Neuts (auto) Absolute Nucleated RBC Nucleated RBC % (auto) PT 20.2 H INR 1.8 H Anion Gap Estim Creat Clear Calc Estimated GFR Random Glucose Calcium Total Bilirubin AST ALT Alkaline Phosphatase Troponin I High Sens 6.5 B-Natriuretic Peptide 347 H Total Protein Albumin COVID-19 (YURIY) COVID-19 Clin Com Influenza Type A (DICKSON) Influenza Type B (DICKSON) Influenza A & B Note 12/05/21 12/05/21 12/05/21 22:25 22:25 22:34 MCV 83.3 MCH 27.3 MCHC 32.8 RDW 15.0 Plt Count 138 L MPV 10.4 Immature Gran % (Auto) 0.7 H Neut % (Auto) 75.5 H Lymph % (Auto) 13.5 L [place] % (Auto) 9.2 Eos % (Auto) 0.8 Baso % (Auto) 0.3 Lymph # (Auto) 1.3 [place] # (Auto) 0.9 Eos # (Auto) 0.1 Baso # (Auto) 0.0 Abs Immat Gran (auto) 0.07 H Absolute Neuts (auto) 7.4 Absolute Nucleated RBC 0.000 Nucleated RBC % (auto) 0.0 PT INR Anion Gap 15 Estim Creat Clear Calc 46.9 Estimated GFR 50 Random Glucose 295 H D Calcium 9.2 D Total Bilirubin 1.1 H AST 28 ALT 26 Alkaline Phosphatase 107 Troponin I High Sens B-Natriuretic Peptide Total Protein 7.5 Albumin 4.2 COVID-19 (YURIY) COVID-19 Clin Com Influenza Type A (DICKSON) Negative Influenza Type B (DICKSON) Negative Influenza A & B Note See Note 12/05/21 22:34 MCV MCH MCHC RDW Plt Count MPV Immature Gran % (Auto) Neut % (Auto) Lymph % (Auto) [place] % (Auto) Eos % (Auto) Baso % (Auto) Lymph # (Auto) [place] # (Auto) Eos # (Auto) Baso # (Auto) Abs Immat Gran (auto) Absolute Neuts (auto) Absolute Nucleated RBC Nucleated RBC % (auto) PT INR Anion Gap Estim Creat Clear Calc Estimated GFR Random Glucose Calcium Total Bilirubin AST ALT Alkaline Phosphatase Troponin I High Sens B-Natriuretic Peptide Total Protein Albumin COVID-19 (YURIY) Positive A COVID-19 Clin Com See Note Influenza Type A (DICKSON) Influenza Type B (DICKSON) Influenza A & B Note Imaging Radiologist's Impressions: Impressions Chest X-Ray 12/05/21 23:01 IMPRESSION: Increased lung markings consistent with interstitial edema. Assessment and Plan (1) CHF (congestive heart failure): Status: Acute (2) Hypoxia: Status: Acute (3) COVID-19: Status: Acute (4) Type 2 diabetes mellitus with unspecified complications: Status: Acute Plan 76-year-old male with a past medical history of hypertension, hyperlipidemia, diabetes, history of AFib on Eliquis status post cardioversion on 12/04/2021, anxiety, depression, vitamin-D deficiency, peptic ulcer disease, non-Hodgkin's lymphoma, dysphagia presented to the hospital today with a chief complaint of shortness of breath. Noted to have following conditions Acute hypoxic respiratory failure: In the setting of new onset CHF/COVID-19. Patient was briefly on the BiPAP; status post nitro patch and IV Lasix. Chest x-ray showed mild congestion. Currently transitioned to nasal cannula. Not in respiratory distress. Supportive care ? New onset CHF: Chest x-ray her mildly condition: Noted to have mild elevated proBNP. Patient is status post cardioversion on 12/04/2021 weight of so many in. Echocardiogram in November 2021 showed EF of 60-65%, diastolic function indeterminate. Will continue the patient on Lasix 40 mg daily Daily weights and I's and O's Cardiology consult Chest discomfort: Currently resolved. EKG nonischemic. Troponin 6.5. Repeat troponin pending Sublingual nitroglycerin p.r.n. COVID-19 positive: Will give the patient on Decadron empirically. Id consult for further recommendations. Patient is already COVID-19 vaccinated. History of AFib: Status post cardioversion 12/04/2021. For noted to sinus. Will continue the patient on amiodarone and Eliquis. Need to confirm Amiodarone dose with cardiology History of diabetes: Hold home oral hypoglycemic agents. Insulin sliding scale for now. Monitor fingerstick glucose. History of hypertension/hyperlipidemia: C/w Metoprolol; hold amlodipine ,losartan for now. BP on normal side. May need room for IV Diuresis. DVT prophylaxis: Patient on Eliquis Code status: Full code Quality Stroke Does the patient have a stroke diagnosis?: No VTE Prior VTE?: No VTE Risk Level:: Medical - moderate - high VTE Device Contraindication: Treatment Not Indicated VTE Drug Contraindication: N/A - Med Ordered
[2021-12-05] MEDS: 0.9 % Sodium Chloride Flush 3 ML SYRINGE IVFLUSH (23:53)
[2021-12-06] VITALS (11 sets, daily range): BP systolic 96–171; BP diastolic 51–94; PULSE 59–89; RESP 16–29; TEMP 36.4–37.2; O2SAT 95–99
[2021-12-06 00:13] LABS: Troponin-I High Sensitivity 10.8 ng/L (<3.5-35.0)
[2021-12-06 00:15] LABS: Magnesium 1.8 mg/dL (1.6-2.6)
[2021-12-06 06:14] LABS: MANUAL DIFF FLAG NO
[2021-12-06 06:21] LABS: Basophils Percent Auto 0.2 % (0-2); Eosinophils Percent Auto 0.2 % (0-4); Hematocrit 37.7 % (42.0-52.0); Hemoglobin 12.4 g/dl (14.0-18.0); Imm Gran Abs Auto 0.06 X10*3/uL (0.00-0.03); Imm Gran Pct Auto 0.7 % (0.0-0.4); Lymphocytes Absolute Auto 0.7 X10*3/uL (1.2-4.9); Lymphocytes Percent Auto 8.2 % (20-40); Mean Corpuscular HGB Conc 32.9 g/dl (31.0-36.0); Mean Corpuscular Hemoglobin 27.2 pg (27.0-33.0); Mean Corpuscular Volume 82.7 fL (80.0-98.0); Monocytes Absolute Auto 0.9 X10*3/uL (0.1-1.2); Monocytes Percent Auto 10.5 % (2-11); Neutrophils Absolute Auto 6.8 x10*3/uL (2.0-8.3); Neutrophils Percent Auto 80.2 % (45-73); Platelet Count 141 X10*3/uL (160-400); Red Blood Count 4.56 X10*6/uL (4.60-5.80); Red Cell Distribution Width 14.8 % (11.0-16.0); White Blood Count 8.5 X10*3/uL (4.8-10.8)
[2021-12-06 06:28] LABS: Anion Gap 14 (12-20); Blood Urea Nitrogen 21 mg/dL (9-16); Calcium 9.5 mg/dL (8.4-10.2); Carbon Dioxide 28 mmol/L (22-29); Chloride 95 mmol/L (96-108); Creatinine Clr Calc Pharmacy 49.8; Estimated Glomerular Filt Rate 54; Glucose Random 155 mg/dL (60-115); Potassium 5.1 mmol/L (3.3-5.1); Sodium 132 mmol/L (135-145)
[2021-12-06 06:47] LABS: Glucose, Whole Blood 151 mg/dL (60-115)
--- NOTE | 2021-12-06 06:57 | PC.NURSE ---
Report given to CHERI Lindo. Patient resting in bed, NAD noted.
[2021-12-06] MEDS: 0.9 % Sodium Chloride Flush 3 ML SYRINGE IVFLUSH ×2 (07:37→16:42)
[2021-12-06] MEDS: Insulin Lispro 100 UNIT/ML 3 ML VIAL SUBCUT ×3 (07:55→16:41)
--- NOTE | 2021-12-06 08:06 | PC.NURSE ---
Patient is alert and oriented x3. VSS. Patient denies any pain at present. O2 Sat 98% on O2 at 2 LPM NC. POC 151; 2 units of Humalog administered per sliding scale with breakfast. Patient reports chronic, mild issue swallowing dry food/big bites of food-no issues swallowing food noted while pt having breakfast-patient is aware to have small bites of moist food and chew properly. Speech therapy to evaluate patient today
--- NOTE | 2021-12-06 08:17 | PHA.MEDREC ---
MED REC COMPLETE. PATIENT HAS JUST BEEN PRESCRIBED AMLODIPINE 5 MG DAILY, AND AMIODARONE 400 MG BID X 14 DAYS, THEN 200 MG DAILY. HE HAS NOT YET STARTED TAKING THESE MEDICATIONS Pharmacy Consult ? Medication Reconciliation Pharmacy has completed the medication reconciliation.
[2021-12-06 08:52] LABS: C Reactive Protein 5.78 mg/dL (< or = 0.50); Lactate Dehydrogenase 255 U/L (118-273)
[2021-12-06] MEDS: Metoprolol Succinate ER 100 MG TAB.ER.24H PO (09:03)
[2021-12-06] MEDS: Apixaban 5 MG TABLET PO ×2 (09:03→21:12)
[2021-12-06] MEDS: Furosemide 40 MG/4 ML VIAL IVPUSH (09:04)
[2021-12-06] MEDS: dexAMETHasone sod phosphate 4 MG/ML VIAL 6 MG IVPUSH (09:04)
[2021-12-06 09:36] LABS: Procalcitonin 0.29 ng/mL
[2021-12-06 09:49] LABS: Ferritin 345 ng/mL (20-250)
[2021-12-06] MEDS: Amiodarone HCL 200 MG TABLET 400 MG PO ×2 (10:08→21:12)
[2021-12-06] MEDS: Cholecalciferol (Vitamin D3) 25 MCG TABLET PO (10:08)
[2021-12-06] MEDS: Atorvastatin Calcium 40 MG TABLET PO (10:08)
[2021-12-06] MEDS: amLODIPine Besylate 5 MG TABLET PO (10:09)
[2021-12-06] MEDS: Losartan Potassium 50 MG TABLET PO (10:10)
--- NOTE | 2021-12-06 10:16 | P.CONCA_ITS ---
History of Present Illness History of Present Illness Date of Service: 12/06/21 Chief complaint: CHF Narrative: This is a cardiology consultation regarding congestive heart failure. Patient was recently seen in the clinic. He also underwent cardioversion couple of days ago. At that time, he was actually doing good and including the day after. Subsequently, he is admitted to the hospital with shortness of breath. He also had some chest pressure. Some vomiting as well. With this presentation, he was also diagnosed to have COVID. Hence we have been asked to see him. Not clear if symptoms are because of COVID or from cardiac but could be some combination of both. Review of Systems Review of Systems: Yes all other systems are reviewed and are negative Constitutional: Constitutional: Reports as per HPI Eyes: Eyes: Reports as per HPI ENT: Reports as per HPI Cardiovascular: Cardiovascular: Reports as per HPI, Denies acrocyanosis, Denies cool extremities, Reports chest pain, Denies leg edema, Denies li ghtheadedness, Denies palpitations and Reports dyspnea Respiratory: Respiratory: Reports as per HPI, Reports no additional respiratory complaints and Reports dyspnea Gastrointestinal: Gastrointestinal: Reports as per HPI and Reports no additional gastrointestinal complaints Genitourinary: Genitourinary: Reports no additional male genitourinary complaints and Reports as per HPI Musculoskeletal: Musculoskeletal: Reports no additional musculoskeletal complaints and Reports as per HPI Integumentary/Breasts: Skin/Breast: Reports system reviewed and no additional complaints, except as docu Neurologic: Reports system reviewed and no additional complaints, except as documented and Reports as per HPI Psychiatric: Psychiatric: Reports no additional psychiatric complaints and Reports as per HPI Endocrine: Endocrine: Reports no additional endocrine complaints, Reports as per HPI and Denies palpitations Hematologic/Lymphatic: Hematologic/Lymphatic: Reports no additional hematologic/lymphatic complaints and Reports as per HPI Allergic/Immunologic: Allergic/Immunologic: Reports no additional allergic/immunologic complaints and Reports as per HPI PMFSH Past Medical History Medical History Afib Annual physical exam Anxiety and depression COVID-19 vaccine series completed Hypercholesterolemia Hypertension Non Hodgkin's lymphoma Obesity (BMI 30-39.9) Peptic ulcer disease Thrombocytopenia Type 2 diabetes mellitus with hyperglycemia Vitamin D deficiency Family History Family History Father Lung cancer Mother Breast cancer Sister Breast cancer Brother No problems noted. Sister No problems noted. Son No problems noted. Daughter No problems noted. Surgical History Surgical History H/O colonoscopy H/O lymph node biopsy History of esophagogastroduodenoscopy (EGD) History of shoulder surgery Hx of cataract extraction Social History Social History Housing: House Are you a primary managed care coordinator to a significant other at home: No Do you presently have visiting nurse or other home services: No Alcohol intake: never Patient Tobacco Use Status: Never used Tobacco e-Cigarette/Vaping Use: Never Used Second Hand Smoke Exposure: No Advance Directives: No Advance Directives Information Provided: No service: No Current occupational status: retired Meds Allergies Allergy/AdvReac Type Severity Reaction Status Date / Time gabapentin AdvReac Intermediate lethargy Verified 11/28/21 14:39 lisinopril AdvReac Intermediate Cough Verified 11/28/21 14:39 metformin AdvReac Intermediate lethargy Verified 11/28/21 14:39 Active Medications: Current Medications Acetaminophen (Acetaminophen 325 Mg Tablet) 650 mg PO Q6H PRN PRN Reason: Pain, Mild (Pain Scale 1-3) Amiodarone HCl (Amiodarone Hcl 200 Mg Tablet) 400 mg PO BID [facility] Last Admin: 12/06/21 10:08 Dose: 400 mg Documented by: Amlodipine Besylate (Amlodipine Besylate 5 Mg Tablet) 5 mg PO DAILY [facility]; Protocol Last Admin: 12/06/21 10:09 Dose: 5 mg Documented by: Apixaban (Apixaban 5 Mg Tablet) 5 mg PO BID [facility] Last Admin: 12/06/21 09:03 Dose: 5 mg Documented by: Atorvastatin Calcium (Atorvastatin Calcium 40 Mg Tablet) 40 mg PO DAILY [facility] Last Admin: 12/06/21 10:08 Dose: 40 mg Documented by: Dexamethasone Sodium Phosphate (Dexamethasone Sod Phosphate 4 Mg/Ml Vial) 6 mg IVPUSH DAILY [facility] Last Admin: 12/06/21 09:04 Dose: 6 mg Documented by: Dextrose (Dextrose 50 % 25 Gm/50 Ml Syringe) 25 gm IVPUSH Q15M PRN; Protocol PRN Reason: per Hypoglycemia Standing Ord. Furosemide (Furosemide 40 Mg/4 Ml Vial) 40 mg IVPUSH DAILY [facility]; Protocol Last Admin: 12/06/21 09:04 Dose: 40 mg Documented by: Glucose (Glucose Gel 15 Gm Gel..Gram.) 15 gm PO Q15M PRN; Protocol PRN Reason: per Hypoglycemia Standing Ord. Insulin Human Lispro (Insulin Lispro 100 Unit/Ml 3 Ml Vial) 0 unit SUBCUT QIDACHS [facility]; Protocol Last Admin: 12/06/21 07:55 Dose: 2 unit Documented by: Losartan Potassium (Losartan Potassium 50 Mg Tablet) 50 mg PO DAILY [facility]; Protocol Last Admin: 12/06/21 10:10 Dose: 50 mg Documented by: Melatonin (Melatonin 3 Mg Tablet) 6 mg PO BEDTIME PRN PRN Reason: Insomnia Metoprolol Succinate (Metoprolol Succinate Er 100 Mg Tab.Er.24h) 100 mg PO RENE Y [facility]; Protocol Last Admin: 12/06/21 09:03 Dose: 100 mg Documented by: Morphine Sulfate (Morphine Sulfate 4 Mg/Ml Cartridge) 1 mg IVPUSH Q4H PRN; Protocol PRN Reason: Pain, SOB Sodium Chloride (0.9 % Sodium Chloride Flush 3 Ml Syringe) 3 ml IVFLUSH QSHIFT [facility] Last Admin: 12/06/21 07:37 Dose: 3 ml Documented by: Vitamin D (Cholecalciferol (Vitamin D3) 25 Mcg Tablet) 25 mcg PO DAILY [facility] Last Admin: 12/06/21 10:08 Dose: 25 mcg Documented by: Home Medications Medication Instructions Recorded Confirmed Last Taken Type cholecalciferol (vitamin D3) 25 25 mcg PO DAILY 12/06/21 12/06/21 12/05/21 History mcg (1,000 unit) tablet (Vitamin D3) clindamycin phosphate 1 % lotion 1 appl TOPICAL DAILY 12/06/21 12/06/21 12/05/21 History doxycycline hyclate 100 mg capsule 100 mg PO DAILY 12/06/21 12/06/21 12/05/21 History metronidazole 0.75 % topical cream 1 appl TOPICAL BID@1200,2100 12/06/21 12/06/21 12/05/21 History Physical Exam Vital Signs: Vital Signs: Last Vital Signs Temp 98.3 F 12/06/21 07:14 Pulse 78 12/06/21 07:14 Resp 25 H 12/06/21 07:14 BP 130/67 12/06/21 07:14 Pulse Ox 98 12/06/21 07:14 BMI result Body Mass Index 34.6 Const: Other: Able to communicate in sentences General: no acute distress Orientation/consciousness: patient oriented x3 HEENT: Other: Unremarkable Head: Yes normal to inspection Neck: Neck: Yes normal visual inspection Chest: Chest palpation & inspection: normal inspection of the chest Resp: Other: Minimal basal crackles. Cardio: Palpation: normal PMI Heart sounds: S1 normal heart sound present, S2 normal heart sound present, no gallops, no murmurs and no rubs GI: Palpation (GI): Soft to palpation Back/Spine/Pelvis: Other: unremarkable Skin: General skin exam: no rashes or lesions noted Neuro: General: patient oriented x3 Extrem: General: Yes normal to inspection Psych: Mental Status: mental status grossly normal Objective Labs and Meds Result diagrams: 12/06/21 06:01 12/06/21 06:01 Lab results: Laboratory Results - last 24 hr 12/05/21 12/05/21 12/05/21 22:24 22:24 22:24 WBC RBC Hgb Hct MCV MCH MCHC RDW Plt Count MPV Immature Gran % (Auto) Neut % (Auto) Lymph % (Auto) [place] % (Auto) Eos % (Auto) Baso % (Auto) Lymph # (Auto) [place] # (Auto) Eos # (Auto) Baso # (Auto) Abs Immat Gran (auto) Absolute Neuts (auto) Absolute Nucleated RBC Nucleated RBC % (auto) PT 20.2 H INR 1.8 H Sodium Potassium Chloride Carbon Dioxide Anion Gap BUN Creatinine Estim Creat Clear Calc Estimated GFR POC Glucose Random Glucose Calcium Magnesium Ferritin Total Bilirubin AST ALT Alkaline Phosphatase Lactate Dehydrogenase Troponin I High Sens 6.5 C-Reactive Protein B-Natriuretic Peptide 347 H Total Protein Albumin Procalcitonin COVID-19 ([facility]URIY) COVID-19 Clin Com Influenza Type A (DICKSON) Influenza Type B (DICKSON) Influenza A & B Note 12/05/21 12/05/21 12/05/21 22:25 22:25 22:34 WBC 9.8 RBC 4.90 Hgb 13.4 L Hct 40.8 L MCV 83.3 MCH 27.3 MCHC 32.8 RDW 15.0 Plt Count 138 L MPV 10.4 Immature Gran % (Auto) 0.7 H Neut % (Auto) 75.5 H Lymph % (Auto) 13.5 L [place] % (Auto) 9.2 Eos % (Auto) 0.8 Baso % (Auto) 0.3 Lymph # (Auto) 1.3 [place] # (Auto) 0.9 Eos # (Auto) 0.1 Baso # (Auto) 0.0 Abs Immat Gran (auto) 0.07 H Absolute Neuts (auto) 7.4 Absolute Nucleated RBC 0.000 Nucleated RBC % (auto) 0.0 PT INR Sodium 132 L Potassium 4.6 Chloride 99 Carbon Dioxide 23 Anion Gap 15 BUN 20 H Creatinine 1.37 Estim Creat Clear Calc 46.9 Estimated GFR 50 POC Glucose Random Glucose 295 H D Calcium 9.2 D Magnesium Ferritin Total Bilirubin 1.1 H AST 28 ALT 26 Alkaline Phosphatase 107 Lactate Dehydrogenase Troponin I High Sens C-Reactive Protein B-Natriuretic Peptide Total Protein 7.5 Albumin 4.2 Procalcitonin COVID-19 (YURIY) COVID-[employer] [facility] [employer] Com Influenza Type A (DICKSON) Negative Influenza Type B (DICKSON) Negative Influenza A & B Note See Note 12/05/21 12/05/21 12/05/21 22:34 23:42 23:42 WBC RBC Hgb Hct MCV MCH MCHC RDW Plt Count MPV Immature Gran % (Auto) Neut % (Auto) Lymph % (Auto) [place] % (Auto) Eos % (Auto) Baso % (Auto) Lymph # (Auto) [place] # (Auto) Eos # (Auto) Baso # (Auto) Abs Immat Gran (auto) Absolute Neuts (auto) Absolute Nucleated RBC Nucleated RBC % (auto) PT INR Sodium Potassium Chloride Carbon Dioxide Anion Gap BUN Creatinine Estim Creat Clear Calc Estimated GFR POC Glucose Random Glucose Calcium Magnesium 1.8 Ferritin Total Bilirubin AST ALT Alkaline Phosphatase Lactate Dehydrogenase Troponin I High Sens 10.8 D C-Reactive Protein B-Natriuretic Peptide Total Protein Albumin Procalcitonin COVID-19 (YURIY) Positive A [employer] Com See Note Influenza Type A (DICKSON) Influenza Type B (DICKSON) Influenza A & B Note 12/06/21 12/06/21 12/06/21 06:01 06:01 06:01 WBC 8.5 RBC 4.56 L Hgb 12.4 L Hct 37.7 L MCV 82.7 MCH 27.2 MCHC 32.9 RDW 14.8 Plt Count 141 L MPV 11.0 Immature Gran % (Auto) 0.7 H Neut % (Auto) 80.2 H Lymph % (Auto) 8.2 L [place] % (Auto) 10.5 Eos % (Auto) 0.2 Baso % (Auto) 0.2 Lymph # (Auto) 0.7 L [place] # (Auto) 0.9 Eos # (Auto) 0.0 Baso # (Auto) 0.0 Abs Immat Gran (auto) 0.06 H Absolute Neuts (auto) 6.8 Absolute Nucleated RBC 0.000 Nucleated RBC % (auto) 0.0 PT INR Sodium 132 L Potassium 5.1 Chloride 95 L Carbon Dioxide 28 Anion Gap 14 BUN 21 H Creatinine 1.29 Estim Creat Clear Calc 49.8 Estimated GFR 54 POC Glucose Random Glucose 155 H D Calcium 9.5 Magnesium Ferritin 345 H Total Bilirubin AST ALT Alkaline Phosphatase Lactate Dehydrogenase 255 Troponin I High Sens C-Reactive Protein 5.78 H B-Natriuretic Peptide Total Protein Albumin Procalcitonin 0.29 COVID-19 ([facility]URIY) COVID-19 Clin Com Influenza Type A (DICKSON) Influenza Type B (DICKSON) Influenza A & B Note 12/06/21 06:42 WBC RBC Hgb Hct MCV MCH MCHC RDW Plt Count MPV Immature Gran % (Auto) Neut % (Auto) Lymph % (Auto) [place] % (Auto) Eos % (Auto) Baso % (Auto) Lymph # (Auto) [place] # (Auto) Eos # (Auto) Baso # (Auto) Abs Immat Gran (auto) Absolute Neuts (auto) Absolute Nucleated RBC Nucleated RBC % (auto) PT INR Sodium Potassium Chloride Carbon Dioxide Anion Gap BUN Creatinine Estim Creat Clear Calc Estimated GFR POC Glucose 151 H Random Glucose Calcium Magnesium Ferritin Total Bilirubin AST ALT Alkaline Phosphatase Lactate Dehydrogenase Troponin I High Sens C-Reactive Protein B-Natriuretic Peptide Total Protein Albumin Procalcitonin COVID-19 (YURIY) COVID-19 Clin Com Influenza Type A (DICKSON) Influenza Type B (DICKSON) Influenza A & B Note ECG Interpretation: EKG with sinus rhythm at 79/Min; premature ventricular complexes and nonspecific ST-T changes. Imaging Radiologist's impression: Impressions Chest X-Ray 12/05/21 23:01 IMPRESSION: Increased lung markings consistent with interstitial edema. Assessment and Plan (1) Acute diastolic (congestive) heart failure: Status: Acute (2) COVID-19: Status: Acute (3) PAF (paroxysmal atrial fibrillation): Status: Acute Plan Creatinine 1.19. BUN is 21. High sensitivity troponin 10.8. CRP 5.78. BNP is 347. Chest x-ray with interstitial edema/increased lung markings COVID-19 positive Overall, this could be some combination of COVID-19 infection related respiratory compromise and additionally acute diastolic heart failure precipitated by the COVID. Patient's could get atrial stunning after cardioversion at that could play a role and lead to diastolic heart failure. He came treated for both issues concurrently. From the cardiac standpoint, continue IV Lasix. With regard to medications, loading dose of amiodarone is 400 b.i.d. and should stay on that for now as it has been only 2 days. Continue anticoagulation with Eliquis. Will follow up with you. Discussed with Dr. Roth. Procedures Date of Service Date of Service: 12/06/21
--- NOTE | 2021-12-06 11:22 | HO.PM.IMPN ---
Subjective Subjective Date of Service: 12/06/21 Interval History: C/o dyspnea, chest pressure, and cough No sick contacts Cardioverted 2d ago and in NSR Had 3 doses of Covid-19 mRNA vaccine Review of Systems Review of Systems: Yes all other systems are reviewed and are negative Physical Exam Vital Signs: Vital Signs: Last Vital Signs Temp 98.3 F 12/06/21 07:14 Pulse 78 12/06/21 07:14 Resp 25 H 12/06/21 07:14 BP 130/67 12/06/21 07:14 Pulse Ox 98 12/06/21 07:14 BMI result Body Mass Index 34.6 Gen: in no acute distress HEENT: sclera anicteric, moist mucus membranes Neck: supple Lungs: clear to auscultation bilaterally Heart: regular rate and rhythm, no murmurs Abd: soft, non-tender, non-distended Ext: no edema Skin: warm/well-perfused Neuro: alert and oriented x3, no focal findings Psych: appropriate affect Objective Data Active Medications Acetaminophen (Acetaminophen 325 Mg Tablet) 650 mg PO Q6H PRN PRN Reason: Pain, Mild (Pain Scale 1-3) Amiodarone HCl (Amiodarone Hcl 200 Mg Tablet) 400 mg PO BID [facility] Last Admin: 12/06/21 10:08 Dose: 400 mg Documented by: STEFANO Amlodipine Besylate (Amlodipine Besylate 5 Mg Tablet) 5 mg PO DAILY [facility]; Protocol Last Admin: 12/06/21 10:09 Dose: 5 mg Documented by: STEFANO Apixaban (Apixaban 5 Mg Tablet) 5 mg PO BID [facility] Last Admin: 12/06/21 09:03 Dose: 5 mg Documented by: STEFANO Atorvastatin Calcium (Atorvastatin Calcium 40 Mg Tablet) 40 mg PO DAILY [facility] Last Admin: 12/06/21 10:08 Dose: 40 mg Documented by: STEFANO Dexamethasone Sodium Phosphate (Dexamethasone Sod Phosphate 4 Mg/Ml Vial) 6 mg IVPUSH DAILY [facility] Last Admin: 12/06/21 09:04 Dose: 6 mg Documented by: STEFANO Dextrose (Dextrose 50 % 25 Gm/50 Ml Syringe) 25 gm IVPUSH Q15M PRN; Protocol PRN Reason: per Hypoglycemia Standing Ord. Furosemide (Furosemide 40 Mg/4 Ml Vial) 40 mg IVPUSH DAILY [facility]; Protocol Last Admin: 12/06/21 09:04 Dose: 40 mg Documented by: STEFANO Glucose (Glucose Gel 15 Gm Gel..Gram.) 15 gm PO Q15M PRN; Protocol PRN Reason: per Hypoglycemia Standing Ord. Insulin Human Lispro (Insulin Lispro 100 Unit/Ml 3 Ml Vial) 0 unit SUBCUT QIDACHS [facility]; Protocol Last Admin: 12/06/21 07:55 Dose: 2 unit Documented by: STEFANO Losartan Potassium (Losartan Potassium 50 Mg Tablet) 50 mg PO DAILY [facility]; Protocol Last Admin: 12/06/21 10:10 Dose: 50 mg Documented by: STEFANO Melatonin (Melatonin 3 Mg Tablet) 6 mg PO BEDTIME PRN PRN Reason: Insomnia Metoprolol Succinate (Metoprolol Succinate Er 100 Mg Tab.Er.24h) 100 mg PO DAILY [facility]; Protocol Last Admin: 12/06/21 09:03 Dose: 100 mg Documented by: STEFANO Morphine Sulfate (Morphine Sulfate 4 Mg/Ml Cartridge) 1 mg IVPUSH Q4H PRN; Protocol PRN Reason: Pain, SOB Sodium Chloride (0.9 % Sodium Chloride Flush 3 Ml Syringe) 3 ml IVFLUSH QSHIFT [facility] Last Admin: 12/06/21 07:37 Dose: 3 ml Documented by: STEFANO Vitamin D (Cholecalciferol (Vitamin D3) 25 Mcg Tablet) 25 mcg PO DAILY [facility] Last Admin: 12/06/21 10:08 Dose: 25 mcg Documented by: STEFANO Labs CBC & Chem 7: 12/06/21 06:01 12/06/21 06:01 Labs: Laboratory Results - last 24 hr 12/05/21 12/05/21 12/05/21 22:24 22:24 22:24 MCV MCH MCHC RDW Plt Count MPV Immature Gran % (Auto) Neut % (Auto) Lymph % (Auto) [place] % (Auto) Eos % (Auto) Baso % (Auto) Lymph # (Auto) [place] # (Auto) Eos # (Auto) Baso # (Auto) Abs Immat Gran (auto) Absolute Neuts (auto) Absolute Nucleated RBC Nucleated RBC % (auto) PT 20.2 H INR 1.8 H Anion Gap Estim Creat Clear Calc Estimated GFR POC Glucose Random Glucose Calcium Magnesium Ferritin Total Bilirubin AST ALT Alkaline Phosphatase Lactate Dehydrogenase Troponin I High Sens 6.5 C-Reactive Protein B-Natriuretic Peptide 347 H Total Protein Albumin Procalcitonin COVID-19 ([facility]Y) COVID-19 Clin Com Influenza Type A (DICKSON) Influenza Type B (DICKSON) Influenza A & B Note 12/05/21 12/05/21 12/05/21 22:25 22:25 22:34 MCV 83.3 MCH 27.3 MCHC 32.8 RDW 15.0 Plt Count 138 L MPV 10.4 Immature Gran % (Auto) 0.7 H Neut % (Auto) 75.5 H Lymph % (Auto) 13.5 L [place] % (Auto) 9.2 Eos % (Auto) 0.8 Baso % (Auto) 0.3 Lymph # (Auto) 1.3 Spencer # (Auto) 0.9 Eos # (Auto) 0.1 Baso # (Auto) 0.0 Abs Immat Gran (auto) 0.07 H Absolute Neuts (auto) 7.4 Absolute Nucleated RBC 0.000 Nucleated RBC % (auto) 0.0 PT INR Anion Gap 15 Estim Creat Clear Calc 46.9 Estimated GFR 50 POC Glucose Random Glucose 295 H D Calcium 9.2 D Magnesium Ferritin Total Bilirubin 1.1 H AST 28 ALT 26 Alkaline Phosphatase 107 Lactate Dehydrogenase Troponin I High Sens C-Reactive Protein B-Natriuretic Peptide Total Protein 7.5 Albumin 4.2 Procalcitonin COVID-19 (YURIY) COVID-19 Clin Com Influenza Type A (DICKSON) Negative Influenza Type B (DICKSON) Negative Influenza A & B Note See Note 12/05/21 12/05/21 12/05/21 22:34 23:42 23:42 MCV MCH MCHC RDW Plt Count MPV Immature Gran % (Auto) Neut % (Auto) Lymph % (Auto) [place] % (Auto) Eos % (Auto) Baso % (Auto) Lymph # (Auto) [place] # (Auto) Eos # (Auto) Baso # (Auto) Abs Immat Gran (auto) Absolute Neuts (auto) Absolute Nucleated RBC Nucleated RBC % (auto) PT INR Anion Gap Estim Creat Clear Calc Estimated GFR POC Glucose Random Glucose Calcium Magnesium 1.8 Ferritin Total Bilirubin AST ALT Alkaline Phosphatase Lactate Dehydrogenase Troponin I High Sens 10.8 D C-Reactive Protein B-Natriuretic Peptide Total Protein Albumin Procalcitonin COVID-19 (YURIY) Positive A COVID-19 Clin Com See Note Influenza Type A (DICKSON) Influenza Type B (DICKSON) Influenza A & B Note 12/06/21 12/06/21 12/06/21 06:01 06:01 06:01 MCV 82.7 MCH 27.2 MCHC 32.9 RDW 14.8 Plt Count 141 L MPV 11.0 Immature Gran % (Auto) 0.7 H Neut % (Auto) 80.2 H Lymph % (Auto) 8.2 L Spencer % (Auto) 10.5 Eos % (Auto) 0.2 Baso % (Auto) 0.2 Lymph # (Auto) 0.7 L Spencer # (Auto) 0.9 Eos # (Auto) 0.0 Baso # (Auto) 0.0 Abs Immat Gran (auto) 0.06 H Absolute Neuts (auto) 6.8 Absolute Nucleated RBC 0.000 Nucleated RBC % (auto) 0.0 PT INR Anion Gap 14 Estim Creat Clear Calc 49.8 Estimated GFR 54 POC Glucose Random Glucose 155 H D Calcium 9.5 Magnesium Ferritin 345 H Total Bilirubin AST ALT Alkaline Phosphatase Lactate Dehydrogenase 255 Troponin I High Sens C-Reactive Protein 5.78 H B-Natriuretic Peptide Total Protein Albumin Procalcitonin 0.29 COVID-19 (YURIY) COVID-19 Clin Com Influenza Type A (DICSKON) Influenza Type B (DICKSON) Influenza A & B Note 12/06/21 06:42 MCV MCH MCHC RDW Plt Count MPV Immature Gran % (Auto) Neut % (Auto) Lymph % (Auto) Spencer % (Auto) Eos % (Auto) Baso % (Auto) Lymph # (Auto) Spencer # (Auto) Eos # (Auto) Baso # (Auto) Abs Immat Gran (auto) Absolute Neuts (auto) Absolute Nucleated RBC Nucleated RBC % (auto) PT INR Anion Gap Estim Creat Clear Calc Estimated GFR POC Glucose 151 H Random Glucose Calcium Magnesium Ferritin Total Bilirubin AST ALT Alkaline Phosphatase Lactate Dehydrogenase Troponin I High Sens C-Reactive Protein B-Natriuretic Peptide Total Protein Albumin Procalcitonin COVID-19 (YURIY) COVID-19 Clin Com Influenza Type A (DICKSON) Influenza Type B (DICKSON) Influenza A & B Note Assessment and Plan (1) COVID-19: Status: Acute (2) Acute diastolic (congestive) heart failure: Status: Acute Plan hospital d#2 76yo M with AF on apixaban and s/p cardioversion 12/04/21, DM2, HTN, HLD presenting with 1d of dyspnea + chest discomfort, admitted for CHF exacerbation and Covid-19 infection # Covid-19 infection - dexamethasone d#08/18, remdesivir d#08/13, ID consult, trend inflammatory markers, maintain isolation # acute HFpEF - could be from atrial stunning s/p cardioversion. IV furosemide, trend I/O + BNP + weight, monitor BMP + Mg - continue antihypertensives # AF, s/p cardioversion - continue amiodarone PO load on d#09/22 - continue apixaban for AC - continue metoprolol succinate # acute hypoxic respiratory failure - supplemental O2 via NC [currently 4L], wean as tolerated. was briefly on BiPAP in the ED. # HTN - continue amlodipine, losartan, and metoprolol succinate # HLD - continue atorvastatin # DM2 - correction-dose lispro # VTE ppx - apixaban In my clinical judgment, the patient requires continued hospitalization for the following reasons: hypoxia, IV diuresis Quality Stroke Does the patient have a stroke diagnosis?: No VTE Prior VTE?: No VTE Risk Level:: Medical - moderate - high VTE Device Contraindication: Treatment Not Indicated VTE Drug Contraindication: N/A - Med Ordered
[2021-12-06 11:49] LABS: Glucose, Whole Blood 156 mg/dL (60-115)
[2021-12-06] MEDS: Remdesivir 200 MG in 0.9 % Sodium Chloride 210 ML 105 MG IV (12:34)
[2021-12-06 16:37] LABS: Glucose, Whole Blood 254 mg/dL (60-115)
[2021-12-06 21:08] LABS: Glucose, Whole Blood 126 mg/dL (60-115)
[2021-12-06] MEDS: Melatonin 3 MG TABLET 6 MG PO (21:12)
[2021-12-06] MEDS: Acetaminophen 325 MG TABLET 650 MG PO (21:13)
--- NOTE | 2021-12-06 23:02 | P.CNID_ITS ---
History of Present Illness Data of Consult Service Date: 12/06/21 Requesting physician: Natalia Roth Primary Care Provider: Carmen Peters MD HPI Reason for consult: COVID He presents to hospital chest pain day after cardioversion on 12/04. He is on 4 liters nasal cannula now. He has no fever or chills. He has had two initial COVID vaccines and six months ago. He has no idea how he got COVID. Review of Systems Review of Systems: Yes all other systems are reviewed and are negative [facility] Past Medical History Medical History Afib Annual physical exam Anxiety and depression COVID-19 vaccine series completed Hypercholesterolemia Hypertension Non Hodgkin's lymphoma Obesity (BMI 30-39.9) Peptic ulcer disease Thrombocytopenia Type 2 diabetes mellitus with hyperglycemia Vitamin D deficiency Family History Family History Father Lung cancer Mother Breast cancer Sister Breast cancer Brother No problems noted. Sister No problems noted. Son No problems noted. Daughter No problems noted. Family history: reviewed and not pertinent Surgical History Surgical History H/O colonoscopy H/O lymph node biopsy History of esophagogastroduodenoscopy (EGD) History of shoulder surgery Hx of cataract extraction Social History Social History Housing: House Are you a primary before and after school daycare worker to a significant other at home: No Do you presently have visiting nurse or other home services: No Alcohol intake: never Patient Tobacco Use Status: Never used Tobacco e-Cigarette/Vaping Use: Never Used Second Hand Smoke Exposure: No Advance Directives: No Advance Directives Information Provided: No service: No Current occupational status: retired Meds Allergies Allergy/AdvReac Type Severity Reaction Status Date / Time gabapentin AdvReac Intermediate lethargy Verified 11/28/21 14:39 lisinopril AdvReac Intermediate Cough Verified 11/28/21 14:39 metformin AdvReac Intermediate lethargy Verified 11/28/21 14:39 Active Medications: Current Medications Acetaminophen (Acetaminophen 325 Mg Tablet) 650 mg PO Q6H PRN PRN Reason: Pain, Mild (Pain Scale 1-3) Last Admin: 12/06/21 21:13 Dose: 650 mg Documented by: Amiodarone HCl (Amiodarone Hcl 200 Mg Tablet) 400 mg PO BID [facility] Last Admin: 12/06/21 21:12 Dose: 400 mg Documented by: Amlodipine Besylate (Amlodipine Besylate 5 Mg Tablet) 5 mg PO DAILY [facility]; Protocol Last Admin: 12/06/21 10:09 Dose: 5 mg Documented by: Apixaban (Apixaban 5 Mg Tablet) 5 mg PO BID [facility] Last Admin: 12/06/21 21:12 Dose: 5 mg Documented by: Atorvastatin Calcium (Atorvastatin Calcium 40 Mg Tablet) 40 mg PO DAILY [facility] Last Admin: 12/06/21 10:08 Dose: 40 mg Documented by: Dexamethasone Sodium Phosphate (Dexamethasone Sod Phosphate 4 Mg/Ml Vial) 6 mg IVPUSH DAILY [facility] Last Admin: 12/06/21 09:04 Dose: 6 mg Documented by: Dextrose (Dextrose 50 % 25 Gm/50 Ml Syringe) 25 gm IVPUSH Q15M PRN; Protocol PRN Reason: per Hypoglycemia Standing Ord. Furosemide (Furosemide 40 Mg/4 Ml Vial) 40 mg IVPUSH DAILY [facility]; Protocol Last Admin: 12/06/21 09:04 Dose: 40 mg Documented by: Glucose (Glucose Gel 15 Gm Gel..Gram.) 15 gm PO Q15M PRN; Protocol PRN Reason: per Hypoglycemia Standing Ord. Remdesivir 100 mg/ Sodium (Chloride) 230 mls @ 115 mls/hr IV Q24H [facility] Stop: 12/10/21 14:59 Insulin Human Lispro (Insulin Lispro 100 Unit/Ml 3 Ml Vial) 0 unit SUBCUT QIDACHS [facility]; Protocol Last Admin: 12/06/21 21:10 Dose: Not Given Documented by: Losartan Potassium (Losartan Potassium 50 Mg Tablet) 50 mg PO DAILY [facility]; Protocol Last Admin: 12/06/21 10:10 Dose: 50 mg Documented by: Melatonin (Melatonin 3 Mg Tablet) 6 mg PO BEDTIME PRN PRN Reason: Insomnia Last Admin: 12/06/21 21:12 Dose: 6 mg Documented by: Metoprolol Succinate (Metoprolol Succinate Er 100 Mg Tab.Er.24h) 100 mg PO DAILY [facility]; Protocol Last Admin: 12/06/21 09:03 Dose: 100 mg Documented by: Morphine Sulfate (Morphine Sulfate 4 Mg/Ml Cartridge) 1 mg IVPUSH Q4H PRN; Protocol PRN Reason: Pain, SOB Sodium Chloride (0.9 % Sodium Chloride Flush 3 Ml Syringe) 3 ml IVFLUSH QSHIFT [facility] Last Admin: 12/06/21 16:42 Dose: 3 ml Documented by: Vitamin D (Cholecalciferol (Vitamin D3) 25 Mcg Tablet) 25 mcg PO DAILY [facility] Last Admin: 12/06/21 10:08 Dose: 25 mcg Documented by: Home Medications Medication Instructions Recorded Confirmed Last Taken Type cholecalciferol (vitamin D3) 25 25 mcg PO DAILY 12/06/21 12/06/21 12/05/21 History mcg (1,000 unit) tablet (Vitamin D3) clindamycin phosphate 1 % lotion 1 appl TOPICAL DAILY 12/06/21 12/06/21 12/05/21 History doxycycline hyclate 100 mg capsule 100 mg PO DAILY 12/06/21 12/06/21 12/05/21 History metronidazole 0.75 % topical cream 1 appl TOPICAL BID@1200,2100 12/06/21 12/06/21 12/05/21 History Physical Exam Vital Signs: Vital Signs: Last Vital Signs Temp 97.6 F 12/06/21 22:40 Pulse 59 12/06/21 22:40 Resp 18 12/06/21 22:40 BP 108/58 L 12/06/21 22:43 Pulse Ox 99 12/06/21 22:40 BMI result Body Mass Index 34.6 Const: General: cooperative Eyes: General: appearance normal, both eyes and all related structures Resp: Effort & Inspection: normal respiratory effort Cardio: Rate: regular rate Rhythm: regular rhythm GI: Palpation (GI): Soft to palpation and nontender Results Labs CBC & Chem 7: 12/06/21 06:01 12/06/21 06:01 Labs: Short CBC 12/06/21 Range/Units 06:01 WBC 8.5 (4.8-10.8) X10*3/uL Hgb 12.4 L (14.0-18.0) g/dl Hct 37.7 L (42.0-52.0) % Plt Count 141 L (160-400) X10*3/uL BMP 12/06/21 06:01 Sodium 132 L Potassium 5.1 Chloride 95 L Carbon Dioxide 28 BUN 21 H Creatinine 1.29 Calcium 9.5 Assessment and Plan (1) COVID-19: Status: Acute He has had COVID symptoms for two days He has mild hypoxia (2) PAF (paroxysmal atrial fibrillation): Status: Acute Plan Would give Remdesivir for now ,possible five days or until not hypoxic. Dexamethasone for 10 days Isolation for 10 days
[2021-12-07 03:41] VITALS: BP 142/83; PULSE 64; RESP 17; O2SAT 97
[2021-12-07 06:51] LABS: Hematocrit 38.2 % (42.0-52.0); Hemoglobin 12.7 g/dl (14.0-18.0); Mean Corpuscular HGB Conc 33.2 g/dl (31.0-36.0); Mean Corpuscular Hemoglobin 27.4 pg (27.0-33.0); Mean Corpuscular Volume 82.3 fL (80.0-98.0); Mean Platelet Volume 10.7 fL (9.4-12.4); Platelet Count 149 X10*3/uL (160-400); Red Blood Count 4.64 X10*6/uL (4.60-5.80); Red Cell Distribution Width 14.7 % (11.0-16.0); White Blood Count 8.2 X10*3/uL (4.8-10.8)
[2021-12-07 07:07] LABS: B Type Natriuretic Peptide 176 pg/mL (<100)
[2021-12-07 07:08] LABS: Glucose, Whole Blood 106 mg/dL (60-115)
[2021-12-07 07:17] LABS: Alanine Aminotransferase 23 U/L (0-40); Albumin Level 3.9 g/dL (3.5-5.0); Alkaline Phosphatase 87 U/L (39-117); Anion Gap 18 (12-20); Aspartate Amino Transferase 23 U/L (5-37); Bilirubin Total 1.1 mg/dL (0.0-1.0); Blood Urea Nitrogen 40 mg/dL (9-16); Calcium 9.5 mg/dL (8.4-10.2); Carbon Dioxide 27 mmol/L (22-29); Chloride 92 mmol/L (96-108); Estimated Glomerular Filt Rate 44; Glucose Random 129 mg/dL (60-115); Magnesium 2.1 mg/dL (1.6-2.6); Potassium 4.4 mmol/L (3.3-5.1); Sodium 133 mmol/L (135-145); Total Protein 6.9 g/dL (6.5-8.0)
[2021-12-07 07:18] VITALS: BP 134/67; PULSE 63; RESP 15; O2SAT 99
[2021-12-07 07:30] LABS: D Dimer High Sensitivity 198 NG/ML
--- NOTE | 2021-12-07 10:35 | P.PNIM_ITS ---
Subjective Subjective Date of Service: 12/07/21 Interval History: Dyspnea improved Still coughing Pleuritic chest pain Review of Systems Review of Systems: Yes all other systems are reviewed and are negative Physical Exam Vital Signs: Vital Signs: Last Vital Signs Temp 97.6 F 12/06/21 22:40 Pulse 63 12/07/21 07:18 Resp 15 12/07/21 07:18 BP 134/67 12/07/21 07:18 Pulse Ox 99 12/07/21 07:18 BMI result Body Mass Index 34.6 Gen: in no acute distress HEENT: sclera anicteric, moist mucus membranes Neck: supple Lungs: clear to auscultation bilaterally Heart: regular rate and rhythm, no murmurs Abd: soft, non-tender, non-distended Ext: no edema Skin: warm/well-perfused Neuro: alert and oriented x3, no focal findings Psych: appropriate affect Objective Data Active Medications Acetaminophen (Acetaminophen 325 Mg Tablet) 650 mg PO Q6H PRN PRN Reason: Pain, Mild (Pain Scale 1-3) Last Admin: 12/06/21 21:13 Dose: 650 mg Documented by: KIERA Amiodarone HCl (Amiodarone Hcl 200 Mg Tablet) 400 mg PO BID [facility] Last Admin: 12/06/21 21:12 Dose: 400 mg Documented by: KIERA Amlodipine Besylate (Amlodipine Besylate 5 Mg Tablet) 5 mg PO DAILY [facility]; Protocol Last Admin: 12/06/21 10:09 Dose: 5 mg Documented by: STEFANO Apixaban (Apixaban 5 Mg Tablet) 5 mg PO BID [facility] Last Admin: 12/06/21 21:12 Dose: 5 mg Documented by: KIERA Atorvastatin Calcium (Atorvastatin Calcium 40 Mg Tablet) 40 mg PO DAILY [facility] Last Admin: 12/06/21 10:08 Dose: 40 mg Documented by: STEFANO Dexamethasone Sodium Phosphate (Dexamethasone Sod Phosphate 4 Mg/Ml Vial) 6 mg IVPUSH DAILY [facility] Last Admin: 12/06/21 09:04 Dose: 6 mg Documented by: STEFANO Dextrose (Dextrose 50 % 25 Gm/50 Ml Syringe) 25 gm IVPUSH Q15M PRN; Protocol PRN Reason: per Hypoglycemia Standing Ord. Glucose (Glucose Gel 15 Gm Gel..Gram.) 15 gm PO Q15M PRN; Protocol PRN Reason: per Hypoglycemia Standing Ord. Remdesivir 100 mg/ Sodium (Chloride) 230 mls @ 115 mls/hr IV Q24H [facility] Stop: 12/10/21 14:59 Insulin Human Lispro (Insulin Lispro 100 Unit/Ml 3 Ml Vial) 0 unit SUBCUT QI [facility]; Protocol Last Admin: 12/07/21 07:19 Dose: Not Given Documented by: JESUS Non-Admin Reason: No Insulin Coverage Losartan Potassium (Losartan Potassium 50 Mg Tablet) 50 mg PO DAILY [facility]; Protocol Last Admin: 12/06/21 10:10 Dose: 50 mg Documented by: STEFANO Melatonin (Melatonin 3 Mg Tablet) 6 mg PO BEDTIME PRN PRN Reason: Insomnia Last Admin: 12/06/21 21:12 Dose: 6 mg Documented by: KIERA Metoprolol Succinate (Metoprolol Succinate Er 100 Mg Tab.Er.24h) 100 mg PO DAILY [facility]; Protocol Last Admin: 12/06/21 09:03 Dose: 100 mg Documented by: STEFANO Morphine Sulfate (Morphine Sulfate 4 Mg/Ml Cartridge) 1 mg IVPUSH Q4H PRN; Protocol PRN Reason: Pain, SOB Sodium Chloride (0.9 % Sodium Chloride Flush 3 Ml Syringe) 3 ml IVFLUSH QSHIFT [facility] Last Admin: 12/07/21 00:35 Dose: Not Given Documented by: KIERA Non-Admin Reason: Previously Administered Vitamin D (Cholecalciferol (Vitamin D3) 25 Mcg Tablet) 25 mcg PO DAILY [facility] Last Admin: 12/06/21 10:08 Dose: 25 mcg Documented by: STEFANO Labs CBC & Chem 7: 12/07/21 06:16 12/07/21 06:16 Labs: Laboratory Results - last 24 hr 12/06/21 12/06/21 12/06/21 11:42 16:31 21:01 MCV MCH MCHC RDW Plt Count MPV Absolute Nucleated RBC Nucleated RBC % (auto) D-Dimer High Sensitivty Anion Gap Estim Creat Clear Calc Estimated GFR POC Glucose 156 H 254 H 126 H Random Glucose Calcium Magnesium Total Bilirubin AST ALT Alkaline Phosphatase B-Natriuretic Peptide Total Protein Albumin 12/07/21 12/07/21 12/07/21 06:16 06:16 06:16 MCV 82.3 MCH 27.4 MCHC 33.2 RDW 14.7 Plt Count 149 L MPV 10.7 Absolute Nucleated RBC 0.000 Nucleated RBC % (auto) 0.0 D-Dimer High Sensitivty 198 Anion Gap 18 Estim Creat Clear Calc 42.0 Estimated GFR 44 POC Glucose Random Glucose 129 H Calcium 9.5 Magnesium 2.1 Total Bilirubin 1.1 H AST 23 ALT 23 Alkaline Phosphatase 87 B-Natriuretic Peptide Total Protein 6.9 Albumin 3.9 12/07/21 12/07/21 06:16 06:53 MCV MCH MCHC RDW Plt Count MPV Absolute Nucleated RBC Nucleated RBC % (auto) D-Dimer High Sensitivty Anion Gap Estim Creat Clear Calc Estimated GFR POC Glucose 106 Random Glucose Calcium Magnesium Total Bilirubin AST ALT Alkaline Phosphatase B-Natriuretic Peptide 176 H Total Protein Albumin Assessment and Plan (1) COVID-19: Status: Acute (2) Acute diastolic (congestive) heart failure: Status: Acute Plan hospital d#3 76yo M with AF on apixaban and s/p cardioversion 12/04/21, DM2, HTN, HLD presenting with 1d of dyspnea + chest discomfort, admitted for CHF exacerbation and Covid-19 infection # Covid-19 infection - dexamethasone d#09/18, remdesivir d#2, ID consulted, trend inflammatory markers, maintain isolation # acute HFpEF - could be from atrial stunning s/p cardioversion - diuresed net 1.44L with IV furosemide. BUN/Cr up, BNP down, appears euvolemic or dry, will d/c furosemide - continue antihypertensives # AF, s/p cardioversion - continue amiodarone PO load on d#10/20 - continue apixaban for AC - continue metoprolol succinate # acute hypoxic respiratory failure - supplemental O2 via NC [currently down to 2L, wean as tolerated. was briefly on BiPAP in the ED. # HTN - continue amlodipine, losartan, and metoprolol succinate # HLD - continue atorvastatin # DM2 - correction-dose lispro # VTE ppx - apixaban In my clinical judgment, the patient requires continued hospitalization for the following reasons: hypoxia Quality Stroke Does the patient have a stroke diagnosis?: No VTE Prior VTE?: No VTE Risk Level:: Medical - moderate - high VTE Device Contraindication: Treatment Not Indicated VTE Drug Contraindication: N/A - Med Ordered
[2021-12-07] MEDS: dexAMETHasone sod phosphate 4 MG/ML VIAL 6 MG IVPUSH (11:01)
[2021-12-07] MEDS: 0.9 % Sodium Chloride Flush 3 ML SYRINGE IVFLUSH ×3 (11:01→20:39)
[2021-12-07] MEDS: Atorvastatin Calcium 40 MG TABLET PO (11:02)
[2021-12-07] MEDS: Losartan Potassium 50 MG TABLET PO (11:02)
[2021-12-07] MEDS: amLODIPine Besylate 5 MG TABLET PO (11:02)
[2021-12-07] MEDS: Amiodarone HCL 200 MG TABLET 400 MG PO ×2 (11:02→20:38)
[2021-12-07] MEDS: Metoprolol Succinate ER 100 MG TAB.ER.24H PO (11:02)
[2021-12-07] MEDS: Cholecalciferol (Vitamin D3) 25 MCG TABLET PO (11:02)
[2021-12-07] MEDS: Apixaban 5 MG TABLET PO ×2 (11:02→20:39)
[2021-12-07 11:06] VITALS: BP 122/64; PULSE 65; RESP 19; O2SAT 99
--- NOTE | 2021-12-07 12:12 | MHC.CM.PN ---
Met with patient in regards to discharge planning. Patient tested postiive for Covid on 12/05. Patient lives with his , son, daughter and grandson. No other family members are Covid positive at this time. Patient ambulates independently and had no services prior to coming to the hospital. No services anticipated to be needed. PCP verified. Patient has a HCP at home and will attempt to obtain a copy. Patient has receivd 3 Moderna vaccines. IMM explained and signed. Patient's will transport him home when medically stable. Continue to monitor for d/c needs.
[2021-12-07] MEDS: Remdesivir 100 MG in 0.9 % Sodium Chloride 230 ML 115 MG IV (12:58)
[2021-12-07 15:11] LABS: Glucose, Whole Blood 108 mg/dL (60-115)
[2021-12-07 17:15] VITALS: BP 125/61; PULSE 64; RESP 18; TEMP 36.4; O2SAT 93
[2021-12-07] MEDS: Insulin Lispro 100 UNIT/ML 3 ML VIAL SUBCUT ×2 (17:59→20:39)
[2021-12-07 19:19] VITALS: BP 132/66; PULSE 66; RESP 17; TEMP 36.4; O2SAT 95
[2021-12-07 19:53] LABS: Glucose, Whole Blood 249 mg/dL (60-115)
[2021-12-07 20:30] LABS: Glucose, Whole Blood 187 mg/dL (60-115)
[2021-12-07 23:43] VITALS: BP 146/70; PULSE 65; RESP 18; TEMP 36.2; O2SAT 94
[2021-12-08 03:33] VITALS: BP 140/68; PULSE 62; RESP 20; TEMP 36.7; O2SAT 93
[2021-12-08 07:40] LABS: Hematocrit 39.3 % (42.0-52.0); Mean Corpuscular HGB Conc 33.1 g/dl (31.0-36.0); Mean Corpuscular Hemoglobin 27.3 pg (27.0-33.0); Mean Corpuscular Volume 82.6 fL (80.0-98.0); Mean Platelet Volume 10.6 fL (9.4-12.4); Platelet Count 174 X10*3/uL (160-400); Red Blood Count 4.76 X10*6/uL (4.60-5.80); Red Cell Distribution Width 14.7 % (11.0-16.0); White Blood Count 10.3 X10*3/uL (4.8-10.8)
[2021-12-08 07:46] VITALS: BP 143/74; PULSE 58; RESP 20; TEMP 36.7; O2SAT 94
[2021-12-08 07:57] LABS: Alanine Aminotransferase 26 U/L (0-40); Albumin Level 3.9 g/dL (3.5-5.0); Alkaline Phosphatase 85 U/L (39-117); Anion Gap 15 (12-20); Aspartate Amino Transferase 23 U/L (5-37); Blood Urea Nitrogen 57 mg/dL (9-16); C Reactive Protein 5.19 mg/dL (< or = 0.50); Calcium 9.7 mg/dL (8.4-10.2); Carbon Dioxide 27 mmol/L (22-29); Chloride 95 mmol/L (96-108); Creatinine Clr Calc Pharmacy 38.4; Estimated Glomerular Filt Rate 40; Glucose Random 175 mg/dL (60-115); Potassium 4.9 mmol/L (3.3-5.1); Sodium 132 mmol/L (135-145); Total Protein 7.1 g/dL (6.5-8.0)
[2021-12-08 07:58] LABS: Glucose, Whole Blood 172 mg/dL (60-115)
[2021-12-08 08:03] LABS: B Type Natriuretic Peptide 335 pg/mL (<100)
[2021-12-08] MEDS: Insulin Lispro 100 UNIT/ML 3 ML VIAL SUBCUT ×4 (09:26→20:27)
[2021-12-08] MEDS: amLODIPine Besylate 5 MG TABLET PO (09:28)
[2021-12-08] MEDS: Atorvastatin Calcium 40 MG TABLET PO (09:28)
[2021-12-08] MEDS: Losartan Potassium 50 MG TABLET PO (09:28)
[2021-12-08] MEDS: Metoprolol Succinate ER 100 MG TAB.ER.24H PO (09:28)
[2021-12-08] MEDS: Cholecalciferol (Vitamin D3) 25 MCG TABLET PO (09:28)
[2021-12-08] MEDS: Apixaban 5 MG TABLET PO ×2 (09:28→20:27)
[2021-12-08] MEDS: Amiodarone HCL 200 MG TABLET 400 MG PO ×2 (09:29→20:27)
[2021-12-08] MEDS: dexAMETHasone sod phosphate 4 MG/ML VIAL 6 MG IVPUSH (09:31)
--- NOTE | 2021-12-08 09:35 | P.PNIM_ITS ---
Subjective Subjective Date of Service: 12/08/21 Interval History: Weaned off O2. Dyspnea much improved. Chest pain also improved. SCr up. Review of Systems Review of Systems: Yes all other systems are reviewed and are negative Physical Exam Vital Signs: Vital Signs: Last Vital Signs Temp 98.0 F 12/08/21 07:46 Pulse 58 12/08/21 07:46 Resp 20 12/08/21 07:46 BP 143/74 H 12/08/21 07:46 Pulse Ox 94 12/08/21 07:46 BMI result Body Mass Index 34.6 Gen: in no acute distress HEENT: sclera anicteric, moist mucus membranes Neck: supple Lungs: clear to auscultation bilaterally Heart: regular rate and rhythm, no murmurs Abd: soft, non-tender, non-distended Ext: no edema Skin: warm/well-perfused Neuro: alert and oriented x3, no focal findings Psych: appropriate affect Objective Data Active Medications Acetaminophen (Acetaminophen 325 Mg Tablet) 650 mg PO Q6H PRN PRN Reason: Pain, Mild (Pain Scale 1-3) Last Admin: 12/06/21 21:13 Dose: 650 mg Documented by: KIERA Amiodarone HCl (Amiodarone Hcl 200 Mg Tablet) 400 mg PO BID [facility] Last Admin: 12/07/21 20:38 Dose: 400 mg Documented by: LORNE Amlodipine Besylate (Amlodipine Besylate 5 Mg Tablet) 5 mg PO DAILY [facility]; Protocol Last Admin: 12/07/21 11:02 Dose: 5 mg Documented by: JESUS Apixaban (Apixaban 5 Mg Tablet) 5 mg PO BID [facility] Last Admin: 12/07/21 20:39 Dose: 5 mg Documented by: LORNE Atorvastatin Calcium (Atorvastatin Calcium 40 Mg Tablet) 40 mg PO DAILY [facility] Last Admin: 12/07/21 11:02 Dose: 40 mg Documented by: JESUS Dexamethasone Sodium Phosphate (Dexamethasone Sod Phosphate 4 Mg/Ml Vial) 6 mg IVPUSH DAILY [facility] Last Admin: 12/07/21 11:01 Dose: 6 mg Documented by: JESUS Dextrose (Dextrose 50 % 25 Gm/50 Ml Syringe) 25 gm IVPUSH Q15M PRN; Protocol PRN Reason: per Hypoglycemia Standing Ord. Glucose (Glucose Gel 15 Gm Gel..Gram.) 15 gm PO Q15M PRN; Protocol PRN Reason: per Hypoglycemia Standing Ord. Remdesivir 100 mg/ Sodium (Chloride) 230 mls @ 115 mls/hr IV Q24H [facility] Stop: 12/10/21 14:59 Last Infusion: 12/07/21 15:28 Dose: 0 mls/hr Documented by: JESUS Insulin Human Lispro (Insulin Lispro 100 Unit/Ml 3 Ml Vial) 0 unit SUBCUT QIDACHS [facility]; Protocol Last Admin: 12/07/21 20:39 Dose: 2 unit Documented by: LORNE Losartan Potassium (Losartan Potassium 50 Mg Tablet) 50 mg PO DAILY [facility]; Protocol Last Admin: 12/07/21 11:02 Dose: 50 mg Documented by: JESUS Melatonin (Melatonin 3 Mg Tablet) 6 mg PO BEDTIME PRN PRN Reason: Insomnia Last Admin: 12/06/21 21:12 Dose: 6 mg Documented by: KIERA Metoprolol Succinate (Metoprolol Succinate Er 100 Mg Tab.Er.24h) 100 mg PO DAILY [facility]; Protocol Last Admin: 12/07/21 11:02 Dose: 100 mg Documented by: JESUS Morphine Sulfate (Morphine Sulfate 4 Mg/Ml Cartridge) 1 mg IVPUSH Q4H PRN; Protocol PRN Reason: Pain, SOB Sodium Chloride (0.9 % Sodium Chloride Flush 3 Ml Syringe) 3 ml IVFLUSH QSHIFT [facility] Last Admin: 12/07/21 20:39 Dose: 3 ml Documented by: LORNE Vitamin D (Cholecalciferol (Vitamin D3) 25 Mcg Tablet) 25 mcg PO DAILY [facility] Last Admin: 12/07/21 11:02 Dose: 25 mcg Documented by: JESUS Labs CBC & Chem 7: 12/08/21 07:31 12/08/21 07:31 Labs: Laboratory Results - last 24 hr 12/07/21 12/07/21 12/07/21 13:09 17:07 19:52 MCV MCH MCHC RDW Plt Count MPV Absolute Nucleated RBC Nucleated RBC % (auto) Anion Gap Estim Creat Clear Calc Estimated GFR POC Glucose 108 249 H 187 H Random Glucose Calcium Total Bilirubin AST ALT Alkaline Phosphatase C-Reactive Protein B-Natriuretic Peptide Total Protein Albumin 12/08/21 12/08/21 12/08/21 07:31 07:31 07:31 MCV 82.6 MCH 27.3 MCHC 33.1 RDW 14.7 Plt Count 174 MPV 10.6 Absolute Nucleated RBC 0.000 Nucleated RBC % (auto) 0.0 Anion Gap 15 Estim Creat Clear Calc 38.4 Estimated GFR 40 POC Glucose Random Glucose 175 H D Calcium 9.7 Total Bilirubin 1.0 AST 23 ALT 26 Alkaline Phosphatase 85 C-Reactive Protein 5.19 H B-Natriuretic Peptide 335 H Total Protein 7.1 Albumin 3.9 12/08/21 07:45 MCV MCH MCHC RDW Plt Count MPV Absolute Nucleated RBC Nucleated RBC % (auto) Anion Gap Estim Creat Clear Calc Estimated GFR POC Glucose 172 H Random Glucose Calcium Total Bilirubin AST ALT Alkaline Phosphatase C-Reactive Protein B-Natriuretic Peptide Total Protein Albumin Assessment and Plan (1) COVID-19: Status: Acute (2) Acute diastolic (congestive) heart failure: Status: Acute Plan hospital d#4 76yo M with AF on apixaban and s/p cardioversion 12/04/21, DM2, HTN, HLD presenting with 1d of dyspnea + chest discomfort, admitted for CHF exacerbation and Covid-19 infection # Covid-19 infection - dexamethasone d#10/16, remdesivir d#3, ID consulted, trend inflammatory markers, maintain isolation # acute HFpEF - could be from atrial stunning s/p cardioversion - diuresed net 1.44L with IV furosemide. BUN/Cr up, BNP down, appears euvolemic or dry, d/c'ed furosemide. monitor Cr- went up today. - continue antihypertensives # AF, s/p cardioversion - continue amiodarone PO load on d#11/20 - continue apixaban for AC - continue metoprolol succinate # acute hypoxic respiratory failure - weaned off O2. was briefly on BiPAP in the ED. home O2 eval prior to d/c # HTN - continue amlodipine, losartan, and metoprolol succinate # HLD - continue atorvastatin # DM2 - correction-dose lispro # VTE ppx - apixaban In my clinical judgment, the patient requires continued hospitalization for the following reasons: renal insufficiency Quality Stroke Does the patient have a stroke diagnosis?: No VTE Prior VTE?: No VTE Risk Level:: Medical - moderate - high VTE Device Contraindication: Treatment Not Indicated VTE Drug Contraindication: N/A - Med Ordered
[2021-12-08] MEDS: 0.9 % Sodium Chloride Flush 3 ML SYRINGE IVFLUSH ×2 (09:38→15:29)
--- NOTE | 2021-12-08 09:46 | PM.PNCARD ---
Subjective Subjective Date of Service: 12/08/21 Interval history: He states he is doing good. Walking with occupational therapist. No symptoms like angina or shortness of breath or palpitations. Review of Systems Review of Systems Yes all other systems are reviewed and are negative Constitutional: Reports as per HPI Eyes: Reports as per HPI Reports as per HPI Cardiovascular: Reports as per HPI, Denies acrocyanosis, Denies cool extremities, Denies chest pain, Denies leg edema, Denies lightheadedness, Denies palpitations and Denies dyspnea Respiratory: Reports as per HPI, Reports no additional respiratory complaints and Denies dyspnea Gastrointestinal: Reports as per HPI and Reports no additional gastrointestinal complaints Genitourinary: Reports no additional male genitourinary complaints and Reports as per HPI Musculoskeletal: Reports no additional musculoskeletal complaints and Reports as per HPI Skin/Breast: Reports system reviewed and no additional complaints, except as docu Reports system reviewed and no additional complaints, except as documented and Reports as per HPI Psychiatric: Reports no additional psychiatric complaints and Reports as per HPI Endocrine: Reports no additional endocrine complaints, Reports as per HPI and Denies palpitations Hematologic/Lymphatic: Reports no additional hematologic/lymphatic complaints and Reports as per HPI Allergic/Immunologic: Reports no additional allergic/immunologic complaints and Reports as per HPI Physical Exam Vital Signs: Last Vital Signs Temp 98.0 F 12/08/21 07:46 Pulse 58 12/08/21 07:46 Resp 20 12/08/21 07:46 BP 143/74 H 12/08/21 07:46 Pulse Ox 94 12/08/21 07:46 BMI result Body Mass Index 34.6 Const General: comfortable and no acute distress Orientation/consciousness: patient oriented x3 HEENT Other: Unremarkable Head: Yes normal to inspection Neck Neck: Yes normal visual inspection Chest Chest palpation & inspection: normal inspection of the chest Resp Auscultation: clear to auscultation bilaterally Cardio Palpation: normal PMI Heart sounds: S1 normal heart sound present, S2 normal heart sound present, no gallops, no murmurs and no rubs GI Palpation (GI): Soft to palpation Back/Spine/Pelvis Other: unremarkable Skin General skin exam: no rashes or lesions noted Neuro General: patient oriented x3 Extrem General: Yes normal to inspection Psych Mental Status: mental status grossly normal Objective Labs and Meds Result diagrams: 12/08/21 07:31 12/08/21 07:31 Lab results: Laboratory Results - last 24 hr 12/07/21 12/07/21 12/07/21 13:09 17:07 19:52 WBC RBC Hgb Hct MCV MCH MCHC RDW Plt Count MPV Absolute Nucleated RBC Nucleated RBC % (auto) Sodium Potassium Chloride Carbon Dioxide Anion Gap BUN Creatinine Estim Creat Clear Calc Estimated GFR POC Glucose 108 249 H 187 H Random Glucose Calcium Total Bilirubin AST ALT Alkaline Phosphatase C-Reactive Protein B-Natriuretic Peptide Total Protein Albumin 12/08/21 12/08/21 12/08/21 07:31 07:31 07:31 WBC 10.3 RBC 4.76 Hgb 13.0 L Hct 39.3 L MCV 82.6 MCH 27.3 MCHC 33.1 RDW 14.7 Plt Count 174 MPV 10.6 Absolute Nucleated RBC 0.000 Nucleated RBC % (auto) 0.0 Sodium 132 L Potassium 4.9 Chloride 95 L Carbon Dioxide 27 Anion Gap 15 BUN 57 H Creatinine 1.67 H Estim Creat Clear Calc 38.4 Estimated GFR 40 POC Glucose Random Glucose 175 H D Calcium 9.7 Total Bilirubin 1.0 AST 23 ALT 26 Alkaline Phosphatase 85 C-Reactive Protein 5.19 H B-Natriuretic Peptide 335 H Total Protein 7.1 Albumin 3.9 12/08/21 07:45 WBC RBC Hgb Hct MCV MCH MCHC RDW Plt Count MPV Absolute Nucleated RBC Nucleated RBC % (auto) Sodium Potassium Chloride Carbon Dioxide Anion Gap BUN Creatinine Estim Creat Clear Calc Estimated GFR POC Glucose 172 H Random Glucose Calcium Total Bilirubin AST ALT Alkaline Phosphatase C-Reactive Protein B-Natriuretic Peptide Total Protein Albumin Progress Note: A&P Assessment and plan (1) Acute diastolic (congestive) heart failure: Status: Acute (2) COVID-19: Status: Acute (3) PAF (paroxysmal atrial fibrillation): Status: Acute Plan Overall presentation is from some combination of COVID and diastolic heart failure. He did undergo cardioversion last week and it is possible that he could have had left atrial stunning from cardioversion itching to some diastolic heart failure. Any case, clinically he looks significantly improved since the time of admission. He is walking without any shortness of breath. No need for any further aggressive diuretics. With regard to atrial fibrillation, cardioversion was last week and hence he needs to take amiodarone 400 b.i.d. for 2 weeks and then 200 mg daily. Continue with anticoagulation. Will follow up with you. Time Spent With Patient Time: Total time spent is greater than 50% in coordination of care (as documented) at patient's floor/unit and/or counseling patient: 35min. Progress Note: Quality Stroke Does the patient have a stroke diagnosis?: No Procedures Date of Service Date of Service: 12/08/21
[2021-12-08 11:32] VITALS: BP 127/60; PULSE 64; RESP 20; TEMP 36.5; O2SAT 97
[2021-12-08 11:48] LABS: Glucose, Whole Blood 243 mg/dL (60-115)
[2021-12-08] MEDS: Remdesivir 100 MG in 0.9 % Sodium Chloride 230 ML 115 MG IV (13:30)
[2021-12-08 15:39] VITALS: BP 148/72; PULSE 65; RESP 17; TEMP 36.7; O2SAT 93
[2021-12-08 16:30] LABS: Glucose, Whole Blood 221 mg/dL (60-115)
--- NOTE | 2021-12-08 17:18 | MHC.SL.SWA ---
Speech Pathologist Impression: Esophageal dysphagia Risk of Aspiration Due to: N/A Dysphasia Diet Status: No Change Liquid Consistency and Strategies for Safe Swallow: Liquid Intake Recommendation: Thin Liquid Intake Strategies: Small Sips Solid Food Consistency: Dietary Recommendations: Regular Oral Medication Intake: Whole with Liquid Please contact the pharmacy regarding appropriate crushable or liquid drug formulations that are available whenever modified delivery is recommended. Compensatory Strategies and Precautions to be Taken for Safe Swallow: Sitting Upright (90 deg) Small Bites and Sips Alternate Liquids/Solids Rate of Ingestion Change Supervision While Eating and Drinking for Safe Swallow: None Needed Swallowing Recommended Treatments: Compens. Strategy Educat. Recommendation for Speech: Inpatient Speech Therapy Comment: 1 f/u Recommend patient to f/u with G.I. specialist after D/C Fish Bin Tender Clinican/Clinical Fellow: No Supervisory Statement: I have reviewed and agree with the student/clinical fellow's documentation: N/A Speech Language Pathologist: Alanis Weber M.A., CCC-TEXTILE KNITTER
[2021-12-08 19:25] VITALS: BP 147/72; PULSE 59; RESP 18; TEMP 36.7; O2SAT 95
[2021-12-08 19:52] LABS: Glucose, Whole Blood 299 mg/dL (60-115)
[2021-12-08 23:59] VITALS: BP 140/72; PULSE 55; RESP 18; TEMP 36; O2SAT 93
[2021-12-09] MEDS: 0.9 % Sodium Chloride Flush 3 ML SYRINGE IVFLUSH ×4 (00:35→21:22)
[2021-12-09 03:45] VITALS: BP 158/65; PULSE 63; RESP 17; TEMP 36.3; O2SAT 95
[2021-12-09 08:00] VITALS: BP 151/70; PULSE 60; RESP 20; TEMP 36.6; O2SAT 97
[2021-12-09 08:16] LABS: Glucose, Whole Blood 165 mg/dL (60-115)
[2021-12-09 08:50] LABS: Anion Gap 12 (12-20); Blood Urea Nitrogen 55 mg/dL (9-16); Calcium 9.6 mg/dL (8.4-10.2); Carbon Dioxide 29 mmol/L (22-29); Chloride 100 mmol/L (96-108); Creatinine Clr Calc Pharmacy 43.1; Estimated Glomerular Filt Rate 46; Glucose Random 172 mg/dL (60-115); Sodium 136 mmol/L (135-145)
[2021-12-09] MEDS: Apixaban 5 MG TABLET PO ×2 (08:50→21:21)
[2021-12-09] MEDS: Amiodarone HCL 200 MG TABLET 400 MG PO ×2 (08:50→21:21)
[2021-12-09] MEDS: Insulin Lispro 100 UNIT/ML 3 ML VIAL SUBCUT ×4 (08:50→21:21)
[2021-12-09] MEDS: dexAMETHasone sod phosphate 4 MG/ML VIAL 6 MG IVPUSH (08:50)
[2021-12-09] MEDS: Atorvastatin Calcium 40 MG TABLET PO (08:50)
[2021-12-09] MEDS: amLODIPine Besylate 5 MG TABLET PO (08:50)
[2021-12-09] MEDS: Metoprolol Succinate ER 100 MG TAB.ER.24H PO (08:50)
[2021-12-09] MEDS: Cholecalciferol (Vitamin D3) 25 MCG TABLET PO (08:50)
[2021-12-09] MEDS: Losartan Potassium 50 MG TABLET PO (08:50)
[2021-12-09 11:32] VITALS: BP 118/54; PULSE 59; RESP 20; TEMP 36.6; O2SAT 95
[2021-12-09 11:38] LABS: Glucose, Whole Blood 248 mg/dL (60-115)
[2021-12-09] MEDS: Remdesivir 100 MG in 0.9 % Sodium Chloride 230 ML 115 MG IV (12:08)
--- NOTE | 2021-12-09 12:22 | HO.PM.IMPN ---
Subjective Subjective Date of Service: 12/09/21 Interval History: Being followed for COVID-19 infection feeling better dyspnea improved, no chest pain, denies fever chills has been coughing with yellow phlegm, no acute overnight events. Physical Exam Vital Signs: Vital Signs: Last Vital Signs Temp 97.9 F 12/09/21 11:32 Pulse 59 12/09/21 11:32 Resp 20 12/09/21 11:32 BP 118/54 L 12/09/21 11:32 Pulse Ox 95 12/09/21 11:32 BMI result Body Mass Index 34.6 Const: Other: Gen: Awake alert x3 no acute distre ss HEENT: sclera a nicteric, moist mu cus membranes Neck : supple Lungs: cl ear to auscultatio n bilaterally, no wheeze, no rhonchi no use of accesso ry muscles. Heart: regular rate and rhythm, no murmurs Abd: soft, non-te nder, non-distende d Ext: no edema Sk in: warm/well-perf used Neuro: alert and oriented x3, n o focal findings P sych: appropriate affect Objective Data Active Medications Acetaminophen (Acetaminophen 325 Mg Tablet) 650 mg PO Q6H PRN PRN Reason: Pain, Mild (Pain Scale 1-3) Last Admin: 12/06/21 21:13 Dose: 650 mg Documented by: KIERA Amiodarone HCl (Amiodarone Hcl 200 Mg Tablet) 400 mg PO BID [facility] Last Admin: 12/09/21 08:50 Dose: 400 mg Documented by: TONIE Amlodipine Besylate (Amlodipine Besylate 5 Mg Tablet) 5 mg PO DAILY [facility]; Protocol Last Admin: 12/09/21 08:50 Dose: 5 mg Documented by: TONIE Apixaban (Apixaban 5 Mg Tablet) 5 mg PO BID [facility] Last Admin: 12/09/21 08:50 Dose: 5 mg Documented by: TONIE Atorvastatin Calcium (Atorvastatin Calcium 40 Mg Tablet) 40 mg PO DAILY [facility] Last Admin: 12/09/21 08:50 Dose: 40 mg Documented by: TONIE Dexamethasone Sodium Phosphate (Dexamethasone Sod Phosphate 4 Mg/Ml Vial) 6 mg IVPUSH DAILY [facility] Last Admin: 12/09/21 08:50 Dose: 6 mg Documented by: TONIE Dextrose (Dextrose 50 % 25 Gm/50 Ml Syringe) 25 gm IVPUSH Q15M PRN; Protocol PRN Reason: per Hypoglycemia Standing Ord. Glucose (Glucose Gel 15 Gm Gel..Gram.) 15 gm PO Q15M PRN; Protocol PRN Reason: per Hypoglycemia Standing Ord. Remdesivir 100 mg/ Sodium (Chloride) 230 mls @ 115 mls/hr IV Q24H [facility] Stop: 12/10/21 14:59 Last Admin: 12/09/21 12:08 Dose: 115 mls/hr Documented by: TONIE Insulin Human Lispro (Insulin Lispro 100 Unit/Ml 3 Ml Vial) 0 unit SUBCUT QIDACHS [facility]; Protocol Last Admin: 12/09/21 12:06 Dose: 4 unit Documented by: TONIE Losartan Potassium (Losartan Potassium 50 Mg Tablet) 50 mg PO DAILY [facility]; Protocol Last Admin: 12/09/21 08:50 Dose: 50 mg Documented by: TONIE Melatonin (Melatonin 3 Mg Tablet) 6 mg PO BEDTIME PRN PRN Reason: Insomnia Last Admin: 12/06/21 21:12 Dose: 6 mg Documented by: KIERA Metoprolol Succinate (Metoprolol Succinate Er 100 Mg Tab.Er.24h) 100 mg PO DAILY [facility]; Protocol Last Admin: 12/09/21 08:50 Dose: 100 mg Documented by: TONIE Morphine Sulfate (Morphine Sulfate 4 Mg/Ml Cartridge) 1 mg IVPUSH Q4H PRN; Protocol PRN Reason: Pain, SOB Sodium Chloride (0.9 % Sodium Chloride Flush 3 Ml Syringe) 3 ml IVFLUSH QSHIFT [facility] Last Admin: 12/09/21 08:51 Dose: 3 ml Documented by: TONIE Vitamin D (Cholecalciferol (Vitamin D3) 25 Mcg Tablet) 25 mcg PO DAILY [facility] Last Admin: 12/09/21 08:50 Dose: 25 mcg Documented by: TONIE Labs CBC & Chem 7: 12/08/21 07:31 12/09/21 07:59 Labs: Laboratory Results - last 24 hr 12/08/21 12/08/21 12/09/21 15:41 19:28 07:59 Anion Gap 12 Estim Creat Clear Calc 43.1 Estimated GFR 46 POC Glucose 221 H 299 H Random Glucose 172 H Calcium 9.6 12/09/21 12/09/21 08:00 11:24 Anion Gap Estim Creat Clear Calc Estimated GFR POC Glucose 165 H 248 H Random Glucose Calcium Assessment and Plan (1) COVID-19: Status: Acute (2) Acute diastolic (congestive) heart failure: Status: Acute Plan hospital d#4 76yo M with AF on apixaban and s/p cardioversion 12/04/21, DM2, HTN, HLD presenting with 1d of dyspnea + chest discomfort, admitted for CHF exacerbation and Covid-19 infection # Covid-19 infection - dexamethasone d#11/16, remdesivir d#11/11, ID consulted, trend inflammatory markers, maintain isolation # acute HFpEF/PIYUSH - chf could be from atrial stunning s/p cardioversion - diuresed net 1.44L with IV furosemide, Lasix discontinued since noted to have bump in creatinine, which is trending down gradually from 1.67-1.49 today,Patient appears euvolemic continue to hold Lasix and follow BMP, continue antihypertensive , on remdesivir need close renal monitoring # AF, s/p cardioversion - continue amiodarone PO load on d#12/20, continue apixaban for AC - continue metoprolol succinate, rate well controlled # acute hypoxic respiratory failure - resolved, was briefly on BiPAP in the ED. # HTN - continue amlodipine, losartan, and metoprolol succinate # HLD - continue atorvastatin # DM2 - correction-dose lispro # VTE ppx - apixaban In my clinical judgment, the patient requires continued hospitalization for the following reasons: renal insufficiency Quality Stroke Does the patient have a stroke diagnosis?: No VTE Prior VTE?: No VTE Risk Level:: Medical - moderate - high VTE Device Contraindication: Treatment Not Indicated VTE Drug Contraindication: N/A - Med Ordered
[2021-12-09 15:46] VITALS: BP 140/70; PULSE 57; RESP 16; TEMP 36.3; O2SAT 94
[2021-12-09 16:12] LABS: Glucose, Whole Blood 206 mg/dL (60-115)
[2021-12-09 19:43] VITALS: BP 140/68; PULSE 61; RESP 16; TEMP 35.9; O2SAT 95
[2021-12-09 20:44] LABS: Glucose, Whole Blood 295 mg/dL (60-115)
[2021-12-10] VITALS: BP 144/63; PULSE 53; RESP 18; TEMP 36.9; O2SAT 95
[2021-12-10 02:52] LABS: Glucose, Whole Blood 152 mg/dL (60-115)
[2021-12-10 03:27] VITALS: BP 138/60; PULSE 55; RESP 18; TEMP 36.4; O2SAT 95
[2021-12-10 07:50] LABS: Glucose, Whole Blood 178 mg/dL (60-115)
[2021-12-10 08:00] VITALS: BP 147/68; PULSE 61; RESP 16; TEMP 36.5; O2SAT 96
[2021-12-10 08:06] LABS: Anion Gap 13 (12-20); Blood Urea Nitrogen 48 mg/dL (9-16); Calcium 9.5 mg/dL (8.4-10.2); Carbon Dioxide 28 mmol/L (22-29); Chloride 99 mmol/L (96-108); Creatinine Clr Calc Pharmacy 45.5; Estimated Glomerular Filt Rate 49; Glucose Random 187 mg/dL (60-115); Potassium 5.2 mmol/L (3.3-5.1); Sodium 135 mmol/L (135-145)
[2021-12-10] MEDS: guaiFENesin DM 100/10/5 ML 5 ML SYRUP PO (08:38)
[2021-12-10] MEDS: Apixaban 5 MG TABLET PO (08:39)
[2021-12-10] MEDS: dexAMETHasone sod phosphate 4 MG/ML VIAL 6 MG IVPUSH (08:39)
[2021-12-10] MEDS: Cholecalciferol (Vitamin D3) 25 MCG TABLET PO (08:39)
[2021-12-10] MEDS: Atorvastatin Calcium 40 MG TABLET PO (08:39)
[2021-12-10] MEDS: Insulin Lispro 100 UNIT/ML 3 ML VIAL SUBCUT ×2 (08:39→12:43)
[2021-12-10] MEDS: Losartan Potassium 50 MG TABLET PO (08:39)
[2021-12-10] MEDS: amLODIPine Besylate 5 MG TABLET PO (08:39)
[2021-12-10] MEDS: Metoprolol Succinate ER 100 MG TAB.ER.24H PO (08:39)
[2021-12-10] MEDS: Amiodarone HCL 200 MG TABLET 400 MG PO (08:39)
[2021-12-10] MEDS: 0.9 % Sodium Chloride Flush 3 ML SYRINGE IVFLUSH (08:40)
--- NOTE | 2021-12-10 09:52 | MHC.CM.PN ---
Addendum entered by Emelia Meek 12/10/21 11:41: Patient is discharged to home today. No service ordered or required. Pt has arranged for transportation home. Original Note: Male 76 DX Covid He lives with his he is independent. DP home no services. Patient's will provide transportation. Patient anticipates that he may be discharged today.
[2021-12-10 11:32] VITALS: BP 143/64; PULSE 55; RESP 16; TEMP 36.4; O2SAT 96
[2021-12-10 11:39] LABS: Glucose, Whole Blood 206 mg/dL (60-115)
[2021-12-10] MEDS: Remdesivir 100 MG in 0.9 % Sodium Chloride 230 ML 115 MG IV (12:43)
--- NOTE | 2021-12-10 12:52 | MHC.SLORD ---
Speech Language Pathology Order Status: Per CM note, patient to be discharged today. Patient on regular solids and thin liquids. Please contact [facility] if there are any concerns RE: dysphagia prior to d/c.
--- NOTE | 2021-12-10 16:02 | PM.DS ---
DS: Providers Provider Date of Service: 12/10/21 Date of admission: 12/05/21 23:28 Primary care physician: Carmen Peters MD Consults: 12/05/21 23:26 Consult to Cardiology Routine Consulting Provider: Brain Su Reason for consultation: CHf; afib s/p cardioversion 12/04/21 Consult to Infectious Diseases Routine Consulting Provider: Loreta Merlos Reason for consultation: COVID positive; hypoxia; DS: Diagnosis Discharge Diagnosis (1) COVID-19: Status: Acute (2) Acute diastolic (congestive) heart failure: Status: Acute DS: Summary Hospital Course Hospital Course: Chief Complaint: Shortness of breath 76-year-old male with a past medical history of hypertension, hyperlipidemia, diabetes, history of AFib on Eliquis status post cardioversion on 12/04/2021, anxiety, depression, vitamin-D deficiency, peptic ulcer disease, non-Hodgkin's lymphoma, dysphagia presented to the hospital today with a chief complaint of shortness of breath.? Patient reported that he had cardioversion for AFib yesterday.? For the past 1 day he has been having shortness of breath which has been gradually worsening.? Complains of dyspnea on exertion.? Also has sided mild chest discomfort.? Denies any cough or sputum production.? Denies any fevers and chills.? Denies any GI symptoms.? Denies any recent travel or sick contacts.? Review of all other systems is negative except mentioned above ER course: Per ER team patient on presentation noted to have coarse breath sounds with rales; saturating 85% on room air; tachypneic; patient was placed on BiPAP briefly; lab showed elevated proBNP, chest x-ray showed congestion; patient was given nitro patch briefly, Lasix.? Patient was transitioned to nasal cannula, BiPAP removed.? Also noted to have COVID-19 positive.? Admitted to the hospital for further management hospital course: 76yo M with AF on apixaban and s/p cardioversion 12/04/21, DM2, HTN, HLD presenting with 1day of dyspnea + chest discomfort, admitted for acute hypoxic respiratory failure due to CHF exacerbation and Covid-19 infection, patient treated with dexamethasone IV and remdesivir with good response currently finger oximetry stable on room air, finished 5 day course of remdesivir is being discharged home on 5 days of by mouth dexamethasone in regard to CHF patient treated with IV Lasix that was later discontinued due to worsening renal function, Diagnosed to have acute kidney injury, creatinine has now trended down to 1.4 patient does not require further diuresis at home since appears euvolemic. history of atrial fibrillation status post cardioversion currently on metoprolol, amiodarone loading does 400 mg twice daily will end on 12/17, recommended to take amiodarone 200 mg following loading dose,and continue apixaban for anticoagulation, currently in sinus rhythm rate well controlled. in regard to hypertension blood pressure is well controlled recommend to continue amlodipine, losartan, and metoprolol succinate, noted to have high normal potassium likely due to losartan recommend outpatient follow-up for hyperlipidemia recommend to continue statins Time Spent with Patient Time attestation: Total time spent providing and/or coordinating discharge services: Discharge coordination time: Greater than 30 minutes Quality: Safe Use of Opioids Does Pt have an Active Cancer Diagnosis on the Problem List?: No Quality: Stroke Does the patient have a stroke diagnosis?: No Physical Exam Vital Signs: Vital Signs: Last Vital Signs Temp 97.5 F 12/10/21 11:32 Pulse 55 12/10/21 11:32 Resp 16 12/10/21 11:32 BP 143/64 H 12/10/21 11:32 Pulse Ox 96 12/10/21 11:32 BMI result Body Mass Index 34.6 Const: Other: Gen: awake alert, in no acute distre ss HEENT: sclera a nicteric, moist mu cus membranes Neck : supple Lungs: cl ear to auscultatio n bilaterally Hear t: regular rate an d rhythm, no murmu rs Abd: soft, non- tender, non-disten ded Ext: no edema Skin: warm/well-pe rfused Neuro: aler t and oriented x3, no focal findings Psych: appropriat e affect DS: Data Data Completed and Pending Labs on day of discharge: Laboratory Results - last 24 hr 12/09/21 12/09/21 12/10/21 16:06 20:35 02:45 Sodium Potassium Chloride Carbon Dioxide Anion Gap BUN Creatinine Estim Creat Clear Calc Estimated GFR POC Glucose 206 H 295 H 152 H Random Glucose Calcium 12/10/21 12/10/21 12/10/21 07:14 07:41 11:31 Sodium 135 Potassium 5.2 H Chloride 99 Carbon Dioxide 28 Anion Gap 13 BUN 48 H Creatinine 1.41 H Estim Creat Clear Calc 45.5 Estimated GFR 49 POC Glucose 178 H 206 H Random Glucose 187 H Calcium 9.5 Discharge Plan Discharge Patient Disposition: Home, Self-Care Discharge Diagnosis: acute hypoxic respiratory failure COVID-19 infection acute heart failure with preserved EF acute kidney injury Referrals: Po,Carmen Joshi MD [Primary Care Provider] - 1 Week Discharge Medications: New dexamethasone [Decadron] 6 mg tablet 6 mg PO DAILY Qty: 5 0RF Continued amiodarone 200 mg tablet 200 mg PO DAILY Qty: 90 0RF Rx Instructions: START 200 MG DAILY AFTER 14 DAYS OF AMIODARONE 400 MG BID losartan 50 mg tablet 50 mg PO DAILY 90 Days Qty: 90 3RF amlodipine [Norvasc] 5 mg tablet 5 mg PO DAILY 90 Days Qty: 90 1RF Rx Instructions: PATIENT HAS NOT YET STARTED THIS MEDICATION metronidazole 0.75 % cream 1 appl topical BID@1200,2100 0RF cholecalciferol (vitamin D3) [Vitamin D3] 25 mcg (1,000 unit) Tablet 25 mcg PO DAILY 0RF clindamycin phosphate 1 % Lotion 1 appl TOPICAL DAILY 0RF Protocol: Apply to: Apply to: FACE amiodarone 400 mg tablet 400 mg PO BID 14 Days Qty: 28 0RF Rx Instructions: 400 MG BID X 14 DAYS, end date 12/17/21, THEN 200 MG DAILY atorvastatin 40 mg tablet 40 mg PO DAILY Qty: 90 3RF pioglitazone 15 mg tablet 15 mg PO DAILY 90 Days Qty: 90 2RF metoprolol succinate 100 mg tablet extended release 24 hr 100 mg PO DAILY 90 Days Qty: 90 2RF glipizide 5 mg tablet extended release 24 hr 5 mg PO BID Qty: 180 2RF Eliquis 5 mg tablet 5 mg PO BID 90 Days Qty: 180 3RF Discontinued doxycycline hyclate 100 mg Capsule 100 mg PO DAILY 0RF Discharge Orders: Discharge Order (Routine); Ordered 12/10/21 Ordered By: Dinora Hong Diet: diabetic diet Activity on Discharge: As tolerated Stand Alone Forms: Patient Portal Discharge page Care Plan Goals: COVID-19 infection with mild congestive heart failure with preserved EF, oxygenation stable finish course of remdesivir please take Decadron for 5 more days, continue amiodarone as previously recommended by Cardiology. Health Concerns: diabetes mellitus/ hyperlipidemia take all home medications as before Plan of Treatment: follow with cardiology in 1-2 weeks Assessment: as per discharge summary
== END 2021-12-10 17:17 | disposition home or self-care (01) | DRG 177 ==
LOC: HO.ED 23:33 → HO.EDOVER 23:36 → HO.IMC 12-07 14:24
PROVIDERS: Family Medicine; Admitting Provider Hospitalist; Emergency Provider Student in an Organized Health Care Education/Training Program; PCP Internal Medicine; Visit Provider Hospitalist
DX: U07.1 COVID-19 (principal); I50.31 Acute diastolic (congestive) heart failure; J96.01 Acute respiratory failure with hypoxia; I11.0 Hypertensive heart disease with heart failure; F32.A Depression, unspecified; E78.5 Hyperlipidemia, unspecified; I48.0 Paroxysmal atrial fibrillation; F41.9 Anxiety disorder, unspecified; Z88.8 Allergy status to other drugs, medicaments and biological substances; Z79.01 Long term (current) use of anticoagulants; Z79.84 Long term (current) use of oral hypoglycemic drugs; Z79.899 Other long term (current) drug therapy
CPT/HCPCS: 36415; 71045; 80048; 80053; 82728; 82947; 83615; 83735; 83880; 84145; 84484; 85025; 85027; 85379; 85610; 86140; 87502; 87635; 92610; 93005; 94660; 96374; 97162; 99285; J0248; J1100; J1940

== ENCOUNTER 2021-12-19 11:33 | Outpatient (REF) | payer MEDICARE, SELFPAY ==
--- NOTE | ~2021-12-19 | XR_ITS ---
EXAMINATION: XR CHEST CLINICAL INFORMATION: Shortness of breath COMPARISON: Previous chest x-rays most recent November 2021 TECHNIQUE: 2 views of the chest were obtained. FINDINGS: The cardiac and mediastinal contours are normal. The lung volumes are low. The previously identified interstitial pulmonary edema is no longer seen. The lungs are clear. There is blunting at the bilateral posterior costophrenic angles suggestive of small bilateral pleural effusions. There are degenerative changes of the spine. XR/XR chest 2V IMPRESSION: Cleared interstitial pulmonary edema compared to 12/05/2021 chest x-ray. Small bilateral pleural effusions.
[2021-12-19 12:07] LABS: MANUAL DIFF FLAG NO
[2021-12-19 12:08] LABS: Basophils Percent Auto 0.2 % (0-2); Eosinophils Absolute Auto 0.2 X10*3/uL (0.0-0.4); Eosinophils Percent Auto 2.2 % (0-4); Hematocrit 43.9 % (42.0-52.0); Hemoglobin 14.5 g/dl (14.0-18.0); Imm Gran Abs Auto 0.13 X10*3/uL (0.00-0.03); Imm Gran Pct Auto 1.3 % (0.0-0.4); Lymphocytes Absolute Auto 0.7 X10*3/uL (1.2-4.9); Lymphocytes Percent Auto 7.1 % (20-40); Mean Corpuscular Hemoglobin 27.5 pg (27.0-33.0); Mean Corpuscular Volume 83.1 fL (80.0-98.0); Monocytes Absolute Auto 0.9 X10*3/uL (0.1-1.2); Monocytes Percent Auto 8.6 % (2-11); Neutrophils Absolute Auto 8.4 x10*3/uL (2.0-8.3); Neutrophils Percent Auto 80.6 % (45-73); Red Blood Count 5.28 X10*6/uL (4.60-5.80); White Blood Count 10.4 X10*3/uL (4.8-10.8)
[2021-12-19 12:27] LABS: Mean Platelet Volume 11.1 fL (9.4-12.4)
[2021-12-19 12:28] LABS: Platelet Count 103 X10*3/uL (160-400)
[2021-12-19 12:37] LABS: Alanine Aminotransferase 46 U/L (0-40); Albumin Level 3.4 g/dL (3.5-5.0); Alkaline Phosphatase 79 U/L (39-117); Anion Gap 12 (12-20); Aspartate Amino Transferase 22 U/L (5-37); Bilirubin Total 0.9 mg/dL (0.0-1.0); Blood Urea Nitrogen 31 mg/dL (9-16); Calcium 9.1 mg/dL (8.4-10.2); Carbon Dioxide 28 mmol/L (22-29); Chloride 97 mmol/L (96-108); Cholesterol 121 mg/dL; Estimated Glomerular Filt Rate 53; Glucose Random 247 mg/dL (60-115); HDL Cholesterol 43 mg/dL; LDL Cholesterol Calculated 58 mg/dl; Potassium 4.7 mmol/L (3.3-5.1); Sodium 132 mmol/L (135-145); Total Protein 6.1 g/dL (6.5-8.0); Triglycerides 103 mg/dL
[2021-12-19 12:46] LABS: B Type Natriuretic Peptide 208 pg/mL (<100)
[2021-12-19 12:58] LABS: Thyroid Stimulating Hormone 3.95 uIU/mL (0.32-4.0)
== END 2021-12-19 11:34 | disposition home or self-care (01) ==
LOC: HO.XRAY 11:33
PROVIDERS: PCP Internal Medicine; Visit Provider Internal Medicine
DX: R06.02 Shortness of breath (principal); E78.00 Pure hypercholesterolemia, unspecified; E11.65 Type 2 diabetes mellitus with hyperglycemia
CPT/HCPCS: 36415; 71046; 80053; 80061; 83880; 84443; 85025

== ENCOUNTER → 2021-12-23 14:02 | Outpatient (BNVA) | payer MEDICARE, SELFPAY | PROVIDERS: PCP Internal Medicine; Referring Provider Internal Medicine; Visit Provider Internal Medicine | DX: I48.19 Other persistent atrial fibrillation (principal); I11.0 Hypertensive heart disease with heart failure; I50.32 Chronic diastolic (congestive) heart failure; E11.8 Type 2 diabetes mellitus with unspecified complications | CPT/HCPCS: 93005; 99212 ==

== ENCOUNTER → 2022-02-26 14:50 | Outpatient (BNVA) | payer MEDICARE, SELFPAY | PROVIDERS: PCP Internal Medicine; Visit Provider Internal Medicine | DX: R06.09 Other forms of dyspnea (principal); E66.9 Obesity, unspecified; Z68.33 Body mass index [BMI] 33.0-33.9, adult; G47.33 Obstructive sleep apnea (adult) (pediatric); Z86.16 Personal history of COVID-19 | CPT/HCPCS: 99202 ==

== ENCOUNTER 2022-03-30 10:56 | Outpatient (REF) | payer MEDICARE, SELFPAY ==
--- NOTE | 2022-03-30 15:26 | PFT_ITS ---
Forced vital capacity is moderately reduced at 59%. FEV1 67%. FEV1/FVC ratio is 81, normal. [id number] 82% and MVV 56%. Post bronchodilator therapy, there is a significant improvement in [id number]. Total lung capacity 58%. Residual volume 63%. Diffusion capacity 50%. CONCLUSION: Moderately severe restrictive pulmonary disorder. No obstructive airway disorder. Accelerated response to bronchodilator therapy as shown by improved [id number], indicates mild bronchospastic component in the smaller airways. Clinical correlation is recommended. Caitlin Mcduffie MD MSSharita/MODL / [id number]
== END 2022-03-30 10:57 | disposition home or self-care (01) ==
LOC: HO.RESP 10:56
PROVIDERS: PCP Internal Medicine; Visit Provider Internal Medicine
DX: R06.09 Other forms of dyspnea (principal); E66.9 Obesity, unspecified
CPT/HCPCS: 94060; 94727; 94729

== ENCOUNTER → 2022-03-31 09:41 | Outpatient (REF) | payer MEDICARE, SELFPAY ==
[2022-03-31 10:36] LABS: MANUAL DIFF FLAG NO
[2022-03-31 11:07] LABS: Basophils Percent Auto 0.7 % (0-2); Eosinophils Absolute Auto 0.1 X10*3/uL (0.0-0.4); Eosinophils Percent Auto 1.6 % (0-4); Hematocrit 37.4 % (42.0-52.0); Imm Gran Abs Auto 0.04 X10*3/uL (0.00-0.03); Imm Gran Pct Auto 0.7 % (0.0-0.4); Lymphocytes Absolute Auto 1.6 X10*3/uL (1.2-4.9); Mean Corpuscular HGB Conc 32.1 g/dl (31.0-36.0); Mean Corpuscular Hemoglobin 27.2 pg (27.0-33.0); Mean Corpuscular Volume 84.8 fL (80.0-98.0); Mean Platelet Volume 10.6 fL (9.4-12.4); Monocytes Absolute Auto 0.7 X10*3/uL (0.1-1.2); Monocytes Percent Auto 12.3 % (2-11); Neutrophils Absolute Auto 3.3 x10*3/uL (2.0-8.3); Neutrophils Percent Auto 56.7 % (45-73); Platelet Count 206 X10*3/uL (160-400); Red Blood Count 4.41 X10*6/uL (4.60-5.80); Red Cell Distribution Width 14.9 % (11.0-16.0); White Blood Count 5.8 X10*3/uL (4.8-10.8)
[2022-03-31 11:13] LABS: Estimated Average Glucose 126 mg/dL
[2022-03-31 11:38] LABS: B Type Natriuretic Peptide 122 pg/mL (<100)
[2022-03-31 11:46] LABS: Alanine Aminotransferase 23 U/L (0-40); Albumin Level 4.3 g/dL (3.5-5.0); Alkaline Phosphatase 110 U/L (39-117); Anion Gap 17 (12-20); Aspartate Amino Transferase 22 U/L (5-37); Bilirubin Total 0.9 mg/dL (0.0-1.0); Blood Urea Nitrogen 26 mg/dL (9-16); Calcium 9.7 mg/dL (8.4-10.2); Carbon Dioxide 26 mmol/L (22-29); Chloride 102 mmol/L (96-108); Estimated Glomerular Filt Rate 40; Glucose Random 117 mg/dL (60-115); Potassium 5.6 mmol/L (3.3-5.1); Sodium 139 mmol/L (135-145); Total Protein 7.2 g/dL (6.5-8.0)
[2022-03-31 11:53] LABS: Thyroid Stimulating Hormone 16.84 uIU/mL (0.32-4.0)
== END ==
LOC: HO.SL 09:41
PROVIDERS: Absent Provider Internal Medicine; PCP Internal Medicine; Visit Provider Internal Medicine
DX: G47.33 Obstructive sleep apnea (adult) (pediatric) (principal); E66.9 Obesity, unspecified; I50.32 Chronic diastolic (congestive) heart failure; E11.65 Type 2 diabetes mellitus with hyperglycemia
CPT/HCPCS: 36415; 80053; 83036; 83880; 84443; 85025; 95806

== ENCOUNTER → 2022-04-06 11:05 | Outpatient (BNVA) | payer MEDICARE, SELFPAY | PROVIDERS: PCP Internal Medicine; Referring Provider Internal Medicine; Visit Provider Internal Medicine | DX: I48.91 Unspecified atrial fibrillation (principal); I11.0 Hypertensive heart disease with heart failure; I50.32 Chronic diastolic (congestive) heart failure; E11.8 Type 2 diabetes mellitus with unspecified complications; Z79.899 Other long term (current) drug therapy | CPT/HCPCS: 93005; 99212 ==

== ENCOUNTER → 2022-04-07 10:32 | Outpatient (BNVA) | payer MEDICARE, SELFPAY | PROVIDERS: PCP Internal Medicine; Visit Provider Internal Medicine | DX: R06.09 Other forms of dyspnea (principal); G47.33 Obstructive sleep apnea (adult) (pediatric); J98.4 Other disorders of lung; E66.9 Obesity, unspecified; Z68.33 Body mass index [BMI] 33.0-33.9, adult | CPT/HCPCS: 99212 ==

== ENCOUNTER 2022-04-23 09:30 | Outpatient (REF) | payer MEDICARE, SELFPAY ==
--- NOTE | ~2022-04-23 | XR_ITS ---
EXAMINATION: XR CHEST CLINICAL INFORMATION: J90 - Pleural effusion, not elsewhere classified COMPARISON: Chest radiographs 12/19/2021, 12/05/2021, 09/25/2021. TECHNIQUE: 2 views of the chest were obtained. FINDINGS: The lungs are clear and there is no vascular congestion, infiltrate, or airspace opacity. Costophrenic sulci are clear and there is no appreciable effusion. The heart is normal in size. The hilar and mediastinal contours are similar to prior studies. No acute bony abnormality. XR/XR chest 2V IMPRESSION: Unremarkable examination.
== END 2022-04-23 09:31 | disposition home or self-care (01) ==
LOC: HO.XRAY 09:30
PROVIDERS: PCP Internal Medicine; Visit Provider Internal Medicine
DX: J90 Pleural effusion, not elsewhere classified (principal)
CPT/HCPCS: 71046

== ENCOUNTER 2022-05-26 11:27 | Outpatient (REF) | payer MEDICARE, SELFPAY ==
[2022-05-26 11:48] LABS: MANUAL DIFF FLAG NO
[2022-05-26 12:09] LABS: Basophils Percent Auto 0.5 % (0-2); Eosinophils Absolute Auto 0.1 X10*3/uL (0.0-0.4); Eosinophils Percent Auto 1.7 % (0-4); Hematocrit 35.6 % (42.0-52.0); Hemoglobin 11.8 g/dl (14.0-18.0); Imm Gran Abs Auto 0.05 X10*3/uL (0.00-0.03); Imm Gran Pct Auto 0.8 % (0.0-0.4); Lymphocytes Absolute Auto 1.6 X10*3/uL (1.2-4.9); Mean Corpuscular HGB Conc 33.1 g/dl (31.0-36.0); Mean Corpuscular Hemoglobin 26.4 pg (27.0-33.0); Mean Corpuscular Volume 79.6 fL (80.0-98.0); Monocytes Absolute Auto 0.7 X10*3/uL (0.1-1.2); Monocytes Percent Auto 10.6 % (2-11); Neutrophils Percent Auto 61.4 % (45-73); Platelet Count 198 X10*3/uL (160-400); Red Blood Count 4.47 X10*6/uL (4.60-5.80); Red Cell Distribution Width 13.9 % (11.0-16.0); White Blood Count 6.5 X10*3/uL (4.8-10.8)
[2022-05-26 12:39] LABS: B Type Natriuretic Peptide 141 pg/mL (<100)
[2022-05-26 13:02] LABS: Alanine Aminotransferase 20 U/L (0-40); Albumin Level 4.2 g/dL (3.5-5.0); Alkaline Phosphatase 123 U/L (39-117); Anion Gap 19 (12-20); Aspartate Amino Transferase 26 U/L (5-37); Bilirubin Total 0.8 mg/dL (0.0-1.0); Blood Urea Nitrogen 18 mg/dL (9-16); Carbon Dioxide 23 mmol/L (22-29); Chloride 102 mmol/L (96-108); Estimated Glomerular Filt Rate 46; Glucose Random 132 mg/dL (60-115); Potassium 4.6 mmol/L (3.3-5.1); Sodium 139 mmol/L (135-145); Total Protein 7.2 g/dL (6.5-8.0)
[2022-05-26 13:17] LABS: Free T4 (Free Thyroxine) 0.79 ng/dL (0.71-1.85)
== END 2022-05-26 11:28 | disposition home or self-care (01) ==
LOC: HO.LAB 11:27
PROVIDERS: PCP Internal Medicine; Visit Provider Internal Medicine
DX: I50.32 Chronic diastolic (congestive) heart failure (principal); E66.9 Obesity, unspecified; R06.02 Shortness of breath; J98.4 Other disorders of lung; G47.33 Obstructive sleep apnea (adult) (pediatric)
CPT/HCPCS: 36415; 80053; 83880; 84439; 84443; 85025; 99212

== ENCOUNTER 2022-07-07 12:53 | Outpatient (REF) | payer MEDICARE, SELFPAY ==
[2022-07-07 14:15] LABS: Estimated Average Glucose 131 mg/dL; Hemoglobin A1c % 6.2 %
[2022-07-07 15:15] LABS: Free T4 (Free Thyroxine) 0.85 ng/dL (0.71-1.85)
== END 2022-07-07 12:54 | disposition home or self-care (01) ==
LOC: HO.LAB 12:53
PROVIDERS: PCP Internal Medicine; Visit Provider Internal Medicine
DX: E11.65 Type 2 diabetes mellitus with hyperglycemia (principal); E03.9 Hypothyroidism, unspecified
CPT/HCPCS: 36415; 83036; 84439; 84443

== ENCOUNTER → 2022-08-05 09:50 | Outpatient (BNVA) | payer MEDICARE, SELFPAY | PROVIDERS: PCP Internal Medicine; Visit Provider Internal Medicine | DX: G47.33 Obstructive sleep apnea (adult) (pediatric) (principal); J98.4 Other disorders of lung; E66.9 Obesity, unspecified; Z68.33 Body mass index [BMI] 33.0-33.9, adult | CPT/HCPCS: 99212 ==

== ENCOUNTER 2022-08-20 10:52 | Outpatient (REF) | payer MEDICARE, SELFPAY ==
[2022-08-20 12:30] LABS: Free T4 (Free Thyroxine) 1.08 ng/dL (0.71-1.85); Thyroid Stimulating Hormone 8.21 uIU/mL (0.32-4.0)
== END 2022-08-20 10:53 | disposition home or self-care (01) ==
LOC: HO.LAB 10:52
PROVIDERS: PCP Internal Medicine; Visit Provider Internal Medicine
DX: E03.9 Hypothyroidism, unspecified (principal)
CPT/HCPCS: 36415; 84439; 84443

== ENCOUNTER → 2022-09-08 10:44 | Outpatient (BNVA) | payer MEDICARE, SELFPAY | PROVIDERS: PCP Internal Medicine; Referring Provider Internal Medicine; Visit Provider Internal Medicine | DX: I48.0 Paroxysmal atrial fibrillation (principal); I11.0 Hypertensive heart disease with heart failure; I50.32 Chronic diastolic (congestive) heart failure | CPT/HCPCS: 99212 ==

== ENCOUNTER 2022-09-30 10:09 | Emergency (ER) | payer MEDICARE, SELFPAY ==
[2022-09-30 10:36] VITALS: BP 198/88; PULSE 78; RESP 18; TEMP 36.7; O2SAT 97; BMI 32.4
--- NOTE | 2022-09-30 10:40 | PC.NURSE ---
Recent tooth extraction with bleeding gums patient is anticoagulated with eliquis AOx 4 neuros intact patient is hypertensive has not taken any of his medications today will CTM
--- NOTE | 2022-09-30 10:45 | ED.GENADULT ---
HPI - General Adult General Chief complaint: General Medical Stated complaint: mouth bleeding clots Time Seen by Provider: 09/30/22 10:45 Source: patient Mode of arrival: ambulatory Limitations: no limitations History of Present Illness HPI narrative: 76 [id number] c/o dental/gum bleeding after dental extraction last Wednesday. Sts use of eliquis that he stopped two days prior to procedure, resumed after, and stopped again two days ago. He called his dentist who suggested he come in here for sutures. Oozing noted from upper gum, location of tooth 6. Denies SOB, lightheadedness, chest pain, palpitations, or pain at the site. Patient's states that as they were waiting to be seen, the dentist office called again and recommended the patient suck on tea bags and follow up in their office tomorrow at 11am. Onset (ago): week(s) (1) Location: mouth Radiation: non-radiation Severity: mild Severity scale (1-10): 2 Relieving factors: none Exacerbating factors: none Associated symptoms: denies other symptoms Treatments prior to arrival: none Related Data Home Medications Medication Instructions Recorded Confirmed cholecalciferol (vitamin D3) 25 25 mcg PO DAILY 12/06/21 09/08/22 mcg (1,000 unit) tablet (Vitamin D3) amlodipine 5 mg tablet 7.5 mg PO DAILY 09/08/22 09/08/22 Previous Rx's Medication Instructions Recorded atorvastatin 40 mg tablet 40 mg PO DAILY #90 tabs 09/19/21 apixaban 5 mg tablet (Eliquis) 5 mg PO BID 90 days #180 tabs 11/25/21 hydrochlorothiazide 12.5 mg tablet 12.5 mg PO DAILY #30 tabs 06/09/22 glipizide 5 mg tablet, extended 5 mg PO BID #180 tabs 06/14/22 release 24 hr metoprolol succinate 100 mg 100 mg PO DAILY 90 days #90 tabs 06/14/22 tablet,extended release 24 hr levothyroxine 75 mcg tablet 75 mcg PO DAILY 30 days #30 tabs 08/20/22 amoxicillin 875 mg-potassium 1 tab PO BID 7 days #14 tabs 09/30/22 clavulanate 125 mg tablet Allergies Allergy/AdvReac Type Severity Reaction Status Date / Time gabapentin AdvReac Intermediate lethargy Verified 09/30/22 10:40 lisinopril AdvReac Intermediate Cough Verified 09/30/22 10:40 metformin AdvReac Intermediate lethargy Verified 09/30/22 10:40 Review of Systems Constitutional: Constitutional: Reports no additional constitutional complaints, Denies chills, Denies fatigue, Denies fever(s) and Denies night sweats Eyes: Eyes: Reports no additional eye complaints, Denies blurry vision, Denies change in vision, Denies diplopia, Denies eye discharge, Denies loss of vision and Denies eye pain ENT: Denies dizziness Comments: bleeding from upper gums Cardiovascular: Cardiovascular: Reports no additional cardiovascular complaints, Denies chest pain, Denies lightheadedness, Denies Loss of Consciousness and Denies dyspnea Respiratory: Respiratory: Reports no additional respiratory complaints and Denies dyspnea Gastrointestinal: Gastrointestinal: Reports no additional gastrointestinal complaints, Denies abdominal pain, Denies melena, Denies hematochezia, Denies change in bowel habits and Denies change in stool character Genitourinary: Genitourinary: Reports no additional male genitourinary complaints, Denies hematuria, Denies oliguria, Denies difficulty urinating, Denies dysuria, Denies urinary frequency, Denies urinary hesitancy, Denies urinary incontinence and Denies urinary urgency Musculoskeletal: Musculoskeletal: Reports no additional musculoskeletal complaints, Denies numbness and Denies tingling Neurologic: Denies dizziness, Denies loss of vision, Denies numbness and Denies tingling Psychiatric: Psychiatric: Reports no additional psychiatric complaints Endocrine: Endocrine: Reports no additional endocrine complaints and Denies fatigue Hematologic/Lymphatic: Hematologic/Lymphatic: Reports no additional hematologic/lymphatic complaints Allergic/Immunologic: Allergic/Immunologic: Reports no additional allergic/immunologic complaints [facility] Past Medical History Attestation statement: The following information was validated with the patient. (all information validated with the patient's ) Source: old records reviewed, obtained from family (patient's ) and nursing notes reviewed Medical History (Updated 09/30/22 @ 12:47 by MELL Reynolds) Annual physical exam Anxiety and depression CHF (congestive heart failure) COVID-19 vaccine series completed Dyspnea on exertion Hypercholesterolemia Non Hodgkin's lymphoma Obesity (BMI 30-39.9) Obesity (BMI 30-39.9) LARISSA (obstructive sleep apnea) PAF (paroxysmal atrial fibrillation) Peptic ulcer disease Restrictive lung disease Somnolence, daytime Thrombocytopenia Type 2 diabetes mellitus with hyperglycemia Type 2 diabetes mellitus with unspecified complications Vitamin D deficiency Surgical History H/O colonoscopy H/O lymph node biopsy History of esophagogastroduodenoscopy (EGD) History of shoulder surgery Hx of cataract extraction Family History Family History Father Lung cancer Mother Breast cancer Sister Breast cancer Brother No problems noted. Sister No problems noted. Son No problems noted. Daughter No problems noted. Social History Social History Household Members: Spouse, Family and Children Housing: House Are you a primary child adolescent care to a significant other at home: No Do you presently have visiting nurse or other home services: No Alcohol intake: unknown Patient Tobacco Use Status: Never used Tobacco Smoked in Last 30 Days: No e-Cigarette/Vaping Use: Never Used Second Hand Smoke Exposure: No Advance Directives: Yes Advance Directives on File: Yes Advance Directives Date on File: 12/19/21 service: No Current occupational status: retired Cognitive needs: No Hearing needs: No Vision needs: Yes Physical Exam ED Vital Signs: Vital Signs - 24 hr 09/30/22 10:36 09/30/22 13:00 Temperature 98.0 F Pulse Rate 78 76 Respiratory Rate 18 18 Blood Pressure 198/88 H 157/69 H Pulse Oximetry 97 96 Oxygen Delivery Method Room Air Room Air BMI result Body Mass Index 32.4 Const General: cooperative, comfortable, no acute distress, alert and awake Nutritional Appearance: well nourished Orientation/consciousness: patient oriented x3 Limitations: no limitations HENMT Head: Yes normal to inspection and Yes atraumatic Ears: hearing grossly normal bilaterally and external ears normal General nose exam: Normal external nose present, no nasal discharge noted and no epistaxis Face and sinus: Yes normal facial exam, No abrasion and No laceration Mouth: Normal oral and palatal mucosa present, no drooling and no muffled voice Teeth and gingiva: dentures (lower partial bridge) and gingiva abnormal other (bleeding from upper gums, right side, at tooth 6) Teeth image: 1. Bleeding with small skin flap Eyes General: appearance normal, both eyes and all related structures Periorbital: periorbital findings normal Eyelids: Yes eyelids normal Conjunctivae: conjunctivae normal Pupils: Equal, round and reactive pupils present EOM: EOMs intact bilaterally Neck Neck: Yes normal visual inspection, Yes full ROM and Yes no lymphadenopathy Chest Chest palpation & inspection: normal inspection of the chest Resp Effort & Inspection: normal respiratory effort and able to speak in complete sentences GI Inspection: Yes normal to inspection Neuro General: patient oriented x3 and moves all extremities Cranial nerves: Yes Equal, round and reactive pupils present Cognition (Neuro): normal cognition Motor exam (neuro): 5/5 motor strength present throughout Sensory Exam: Normal double simultaneous stimulation for sensation Coordination: [id number] test normal Extrem General: Yes normal to inspection, Yes full ROM and Yes capillary refill normal Psych Appearance: grossly normal Mental Status: mental status grossly normal Affect: normal affect Attitude: cooperative Thought process: Normal thought process present Thought content: Normal thought content present Insight: Good insight present (Psych) Medications Administered Discontinued Medications Generic Name Dose Route Start Last Admin Trade Name Rosa PRN Reason Stop Dose Admin Lidocaine HCl 2 ml 09/30/22 11:21 09/30/22 11:35 Lidocaine Hcl 1 % Mpf 2 Ml Vial INFILTRATI 09/30/22 11:22 2 ml ONCE ONE Administration Tranexamic Acid 500 mg 09/30/22 11:43 09/30/22 11:51 Tranexamic Acid 1,000 Mg/10 Ml Vial INTRANASAL 09/30/22 11:44 500 mg ONCE ONE Administration Procedures Laceration Laceration 1: Site: other (6th tooth gum ) Side (If applicable): right Size (cm): 0.5 Description: flap Depth: simple, single layer Local Anesthetic: lidocaine 1% Amount of anesthesia used (mL): 2 Pre-repair: irrigated extensively Skin layer closed with: nylon Size (cm): 6-0 Number of sutures: 1 Technique: simple, interrupted Medical Decision Making Medical Decision Making [facility] Narrative: 76 [id number] c/o dental/gum bleeding after dental extraction last Wednesday. Most likely differential diagnosis is bleeding secondary to a dental procedure with apixaban use. Plan Insert dental stitch, TXA, re-eval Patient's 6th tooth gum wound was sutured, without incident. Differential Diagnosis Differential Diagnoses: The differential diagnosis associated with the presentation includes dental laceration Independent Historian Clinical information obtained from an independent historian. History obtained from or confirmed by: Spouse (patient's ) Discharge Plan Discharge Clinical Impression: Bleeding gums Patient Disposition: Home, Self-Care Additional Instructions: You had 1 NON-ABSORABLE stitch placed at the 6th tooth position. The bleeding has now stopped. DO NOT DRINK THROUGH A STRAW. DO NOT PUT YOUR TEETH BACK IN. ONLY EAT VERY SOFT FOODS. Follow up with your primary care provider and your dentist. Return to the emergency department immediately if your symptoms worsen or if you develop any dizziness, shortness of breath, difficulty breathing, chest pain, blurry vision, loss of vision, nausea, vomiting, abdominal pain, fever, chills, back pain, or any other complaints. Prescriptions: New amoxicillin-pot clavulanate 875-125 mg tablet 1 tab PO BID 7 Days Qty: 14 0RF No Action metoprolol succinate 100 mg tablet extended release 24 hr 100 mg PO DAILY 90 Days Qty: 90 2RF glipizide 5 mg tablet extended release 24hr 5 mg PO BID Qty: 180 2RF levothyroxine 75 mcg tablet 75 mcg PO DAILY 30 Days Qty: 30 2RF cholecalciferol (vitamin D3) [Vitamin D3] 25 mcg (1,000 unit) Tablet 25 mcg PO DAILY atorvastatin 40 mg tablet 40 mg PO DAILY Qty: 90 3RF hydrochlorothiazide 12.5 mg tablet 12.5 mg PO DAILY Qty: 30 4RF amlodipine 5 mg tablet 7.5 mg PO DAILY Eliquis 5 mg tablet 5 mg PO BID 90 Days Qty: 180 3RF Referrals: Po,Carmen Joshi MD [Primary Care Provider] - Interventions: ED Discharge Assessment Last Done: 09/30/22 13:01 Discharge Date/Time: 09/30/22 13:10 Print Language: Egyptian
[2022-09-30] MEDS: Lidocaine HCl 1 % MPF 2 ML VIAL INFILTRATI (11:35)
--- NOTE | 2022-09-30 11:35 | PC.NURSE ---
PA at bedside placing suture in upper gums will CTM
[2022-09-30] MEDS: Tranexamic Acid 1,000 MG/10 ML VIAL 500 MG INTRANASAL (11:51)
--- NOTE | 2022-09-30 11:53 | PC.NURSE ---
Patient given txa soaked gauze tolerateing well able to suction his own mouth as needed will CTM
--- NOTE | 2022-09-30 12:45 | PC.NURSE ---
Bleeding better controlled will CTM
[2022-09-30 13:00] VITALS: BP 157/69; PULSE 76; RESP 18; O2SAT 96
== END 2022-09-30 13:10 | disposition home or self-care (01) ==
PROVIDERS: Emergency Provider Emergency Medicine; PCP Internal Medicine
DX: S01.512A Laceration without foreign body of oral cavity, initial encounter (principal); W45.8XXA Other foreign body or object entering through skin, initial encounter; Y93.9 Activity, unspecified; Y92.9 Unspecified place or not applicable; Y99.9 Unspecified external cause status; Z79.899 Other long term (current) drug therapy
CPT/HCPCS: 41250; 99284

== ENCOUNTER 2022-10-14 14:19 | Outpatient (REF) | payer MEDICARE, SELFPAY ==
[2022-10-14 14:38] LABS: MANUAL DIFF FLAG NO
[2022-10-14 14:58] LABS: Basophils Percent Auto 0.4 % (0-2); Eosinophils Absolute Auto 0.1 X10*3/uL (0.0-0.4); Eosinophils Percent Auto 1.6 % (0-4); Hematocrit 40.6 % (42.0-52.0); Hemoglobin 13.3 g/dl (14.0-18.0); Imm Gran Abs Auto 0.03 X10*3/uL (0.00-0.03); Imm Gran Pct Auto 0.4 % (0.0-0.4); Lymphocytes Absolute Auto 1.9 X10*3/uL (1.2-4.9); Mean Corpuscular HGB Conc 32.8 g/dl (31.0-36.0); Mean Corpuscular Hemoglobin 25.2 pg (27.0-33.0); Mean Platelet Volume 9.9 fL (9.4-12.4); Monocytes Absolute Auto 0.7 X10*3/uL (0.1-1.2); Monocytes Percent Auto 10.7 % (2-11); Neutrophils Absolute Auto 4.1 x10*3/uL (2.0-8.3); Neutrophils Percent Auto 58.9 % (45-73); Platelet Count 238 X10*3/uL (160-400); Red Blood Count 5.27 X10*6/uL (4.60-5.80); Red Cell Distribution Width 14.7 % (11.0-16.0); White Blood Count 6.9 X10*3/uL (4.8-10.8)
[2022-10-14 15:07] LABS: Estimated Average Glucose 143 mg/dL; Hemoglobin A1c % 6.6 %
[2022-10-14 15:24] LABS: B Type Natriuretic Peptide 82 pg/mL (<100)
[2022-10-14 15:31] LABS: Alanine Aminotransferase 17 U/L (0-40); Albumin Level 4.3 g/dL (3.5-5.0); Alkaline Phosphatase 99 U/L (39-117); Anion Gap 15 (12-20); Aspartate Amino Transferase 23 U/L (5-37); Bilirubin Total 1.1 mg/dL (0.0-1.0); Blood Urea Nitrogen 21 mg/dL (9-16); Calcium 9.6 mg/dL (8.4-10.2); Carbon Dioxide 32 mmol/L (22-29); Chloride 92 mmol/L (96-108); Cholesterol 146 mg/dL; Estimated Glomerular Filt Rate 37; Glucose Random 204 mg/dL (60-115); HDL Cholesterol 32 mg/dL; LDL Cholesterol Calculated 89 mg/dl; Potassium 3.7 mmol/L (3.3-5.1); Sodium 135 mmol/L (135-145); Total Protein 6.9 g/dL (6.5-8.0); Triglycerides 125 mg/dL
[2022-10-14 16:01] LABS: Folate 8.3 ng/mL (> or = 4.0); Thyroid Stimulating Hormone 3.54 uIU/mL (0.32-4.0); Vitamin B12 352 pg/mL (200-900)
[2022-10-14 17:10] LABS: Creatinine Urine 159.55 mg/dL; Microalbum/Creatinine Ratio Ur 36.3 ug/mg cr
== END 2022-10-14 14:20 | disposition home or self-care (01) ==
LOC: HO.LAB 14:19
PROVIDERS: PCP Internal Medicine; Visit Provider Internal Medicine
DX: E11.65 Type 2 diabetes mellitus with hyperglycemia (principal); E78.00 Pure hypercholesterolemia, unspecified; I50.32 Chronic diastolic (congestive) heart failure
CPT/HCPCS: 36415; 80053; 80061; 82043; 82607; 82746; 83036; 83880; 84439; 84443; 85025

== ENCOUNTER → 2022-11-26 09:50 | Outpatient (BNVA) | payer MEDICARE, SELFPAY | PROVIDERS: PCP Internal Medicine; Visit Provider Internal Medicine | DX: R06.00 Dyspnea, unspecified (principal); J98.4 Other disorders of lung; G47.33 Obstructive sleep apnea (adult) (pediatric); E66.9 Obesity, unspecified; Z68.30 Body mass index [BMI] 30.0-30.9, adult; Z99.89 Dependence on other enabling machines and devices | CPT/HCPCS: 99212 ==

== ENCOUNTER 2022-12-29 10:04 | Outpatient (REF) | payer MEDICARE, SELFPAY ==
--- NOTE | ~2022-12-29 | XR_ITS ---
EXAMINATION: XR CHEST CLINICAL INFORMATION: Pneumonia. COMPARISON: Chest 04/23/2022 TECHNIQUE: 2 views of the chest were obtained. FINDINGS: The lungs are expanded with patchy density right upper lobe and lingular segments consistent with infiltrate. There is no pleural effusion. Or pleural thickening. Heart size and progress clarities normal. No gross bony abnormality seen. XR/XR chest 2V IMPRESSION: Right upper lobe and lingular infiltrate. No pleural effusion seen.
== END 2022-12-29 10:05 | disposition home or self-care (01) ==
LOC: HO.HMGCX 10:04
PROVIDERS: PCP Internal Medicine; Visit Provider Internal Medicine
DX: J18.9 Pneumonia, unspecified organism (principal)
CPT/HCPCS: 71046

== ENCOUNTER 2022-12-29 11:07 | Inpatient (IN) | payer MEDICARE, SELFPAY ==
[2022-12-29] VITALS (9 sets, daily range): BP systolic 124–175; BP diastolic 59–75; PULSE 89–107; RESP 18–24; TEMP 37.3–38.4; O2SAT 93–96; BMI 31.2
--- NOTE | ~2022-12-29 | CT_ITS ---
EXAMINATION: CT CHEST WITHOUT CONTRAST CLINICAL INFORMATION: Shortness of breath COMPARISON: Previous chest x-ray from earlier the same day TECHNIQUE: Multidetector volumetric CT imaging of the chest was done. Axial MIP volume rendering provided. Sagittal and coronal reformatted images were obtained. This CT examination was performed using dose optimization techniques as appropriate, variously including the following: *Automated exposure control *Adjustment of mA and/or kV according to patient size (this includes techniques or standardized protocols for targeted exams where dose is matched to indication/reason for exam; i.e. extremities or head) *Use of iterative reconstruction technique DLP: 265 mGy-cm FINDINGS: ORTHOPTIST: LUNGS: There is bilateral multilobar increased groundglass attenuation and nodular opacities. Largest nodular opacities are in the left lower lobe measuring 2.5 and 3 cm and contains air bronchograms. There are larger denser areas of consolidation or airspace disease with air bronchograms in the posterior segment of the right upper lobe and the posterior basal segment of the right lower lobe. This probably represents an infectious or inflammatory process. No endobronchial or endotracheal lesion. MEDIASTINUM: There is diffuse mediastinal lymphadenopathy. Larger lymph nodes are upper normal in size in the right paratracheal and subcarinal regions. Evaluation for hilar adenopathy is limited without IV contrast. The heart size is normal. No pericardial effusion. Slightly enlarged ascending thoracic aorta and pulmonary arteries. CORONARY ARTERY CALCIFICATION: Severe PLEURA: Very small right pleural effusion. No left pleural effusion. AXILLA: No lymphadenopathy. UPPER ABDOMEN: Peripheral wedge-shaped low-attenuation in this lean questionable for splenic infarct. OSSEOUS STRUCTURES: Degenerative changes of the spine. CT/CT chest wo IV con IMPRESSION: Bilateral multilobar areas of increased groundglass attenuation, nodular opacities and denser airspace disease with air bronchograms. This probably represents pneumonia. Diffuse upper normal-size mediastinal lymph nodes. Small right pleural effusion. Slightly enlarged pulmonary arteries and ascending thoracic aorta. Severe coronary artery calcification. Probable splenic infarct. Fleischner guidelines were followed.
--- NOTE | 2022-12-29 11:14 | ED.GENADULT ---
HPI - General Adult General Chief complaint: Upper Respiratory Symptoms Stated complaint: SOB,FLU-LIKE Time Seen by Provider: 12/29/22 11:13 Source: patient, family () and EMS Mode of arrival: EMS Limitations: no limitations History of Present Illness HPI narrative: Patient is a 77 year old assigned male at with a history of a-fib, restrictive lung disease, CHF, HTN, and cognitive impairment presenting to the emergency department today with worsening shortness of breath and a cough. Patient states that he has been feeling unwell the last few days and has been having worsening shortness of breath. Patient states that he was seen at urgent care and diagnosed with pneumonia. Patient denies any dizziness, lightheadedness, abdominal pain, nausea, vomiting, fever, chills, blurry vision, double vision, loss of vision, chest pain, back pain, night sweats, pain with urination, increased urinary frequency, increased urinary urgency, blood in his urine or stool, syncope or a near syncopal episode, recent trauma or falls, bowel incontinence, bladder incontinence, bowel retention, bladder retention, or any other complaints at this time. Onset (ago): day(s) Severity: mild Severity scale (1-10): 3 Relieving factors: none Exacerbating factors: none Associated symptoms: cough and shortness of breath Treatments prior to arrival: none Related Data Home Medications Medication Instructions Recorded Confirmed cholecalciferol (vitamin D3) 25 25 mcg PO DAILY 12/06/21 12/29/22 mcg (1,000 unit) tablet (Vitamin D3) acetaminophen 325 mg tablet 650 mg PO Q6H PRN Pain 12/29/22 12/29/22 Previous Rx's Medication Instructions Recorded apixaban 5 mg tablet (Eliquis) 5 mg PO BID 90 days #180 tabs 11/25/21 metoprolol succinate 100 mg 100 mg PO DAILY 90 days #90 tabs 06/14/22 tablet,extended release 24 hr atorvastatin 40 mg tablet 40 mg PO DAILY #90 tabs 10/12/22 blood-glucose meter (FreeStyle #1 ea 10/21/22 Lite Meter kit) glipizide 5 mg tablet, extended 5 mg PO DAILY #90 tabs 10/21/22 release 24 hr hydrochlorothiazide 12.5 mg tablet 12.5 mg PO DAILY 90 days #90 tabs 10/21/22 levothyroxine 75 mcg tablet 75 mcg PO DAILY 90 days #90 tabs 11/28/22 oseltamivir 75 mg capsule (Tamiflu) 75 mg PO BID 5 days #10 caps 12/28/22 Allergies Allergy/AdvReac Type Severity Reaction Status Date / Time gabapentin AdvReac Intermediate lethargy Verified 12/29/22 11:23 lisinopril AdvReac Intermediate Cough Verified 12/29/22 11:23 metformin AdvReac Intermediate lethargy Verified 12/29/22 11:23 Review of Systems Constitutional: Constitutional: Reports no additional constitutional complaints, Denies chills, Denies fever(s) and Denies night sweats Eyes: Eyes: Reports no additional eye complaints, Denies blurry vision, Denies change in vision, Denies diplopia, Denies eye discharge, Denies loss of vision and Denies eye pain ENT: Denies dizziness Cardiovascular: Cardiovascular: Reports no additional cardiovascular complaints, Denies chest pain, Denies lightheadedness, Denies Loss of Consciousness and Reports dyspnea Respiratory: Respiratory: Reports no additional respiratory complaints, Reports cough, Reports dyspnea and Reports wheezing Gastrointestinal: Gastrointestinal: Reports no additional gastrointestinal complaints, Denies abdominal pain, Denies melena, Denies hematochezia, Denies change in bowel habits and Denies change in stool character Genitourinary: Genitourinary: Reports no additional male genitourinary complaints, Denies hematuria, Denies oliguria, Denies difficulty urinating, Denies dysuria, Denies urinary frequency, Denies urinary hesitancy, Denies urinary incontinence and Denies urinary urgency Musculoskeletal: Musculoskeletal: Reports no additional musculoskeletal complaints, Denies numbness and Denies tingling Neurologic: Denies dizziness, Denies loss of vision, Denies numbness and Denies tingling Psychiatric: Psychiatric: Reports no additional psychiatric complaints Endocrine: Endocrine: Reports no additional endocrine complaints Hematologic/Lymphatic: Hematologic/Lymphatic: Reports no additional hematologic/lymphatic complaints Allergic/Immunologic: Allergic/Immunologic: Reports no additional allergic/immunologic complaints and Reports wheezing PMFSH Past Medical History Attestation statement: The following information was validated with the patient. (patient's ) Source: old records reviewed, obtained from family (patient's ) and nursing notes reviewed Medical History Annual physical exam Anxiety and depression CHF (congestive heart failure) COVID-19 vaccine series completed Dyspnea on exertion Hypercholesterolemia Non Hodgkin's lymphoma Obesity (BMI 30-39.9) Obesity (BMI 30-39.9) LARISSA (obstructive sleep apnea) PAF (paroxysmal atrial fibrillation) Peptic ulcer disease Restrictive lung disease Somnolence, daytime Thrombocytopenia Type 2 diabetes mellitus with hyperglycemia Type 2 diabetes mellitus with unspecified complications Vitamin D deficiency Surgical History H/O colonoscopy H/O lymph node biopsy History of esophagogastroduodenoscopy (EGD) History of shoulder surgery Hx of cataract extraction Family History Family History Father Lung cancer Mother Breast cancer Sister Breast cancer Brother Substance use disorder Sister No problems noted. Son No problems noted. Daughter No problems noted. Social History Social History Household Members: Spouse, Family and Children Housing: House Are you a primary career services officer to a significant other at home: No Do you presently have visiting nurse or other home services: No Alcohol intake: unknown Patient Tobacco Use Status: Never used Tobacco e-Cigarette/Vaping Use: Never Used Second Hand Smoke Exposure: No Advance Directives: Yes Advance Directives on File: Yes Advance Directives Date on File: 12/19/21 service: No Current occupational status: retired Cognitive needs: No Hearing needs: No Vision needs: Yes Physical Exam ED Vital Signs: Vital Signs - 24 hr 12/29/22 11:23 12/29/22 12:27 12/29/22 13:18 Temperature 99.4 F Pulse Rate 96 94 Respiratory Rate 18 18 24 H Blood Pressure 175/75 H Pulse Oximetry 94 Oxygen Delivery Method Nasal Cannula BMI result Body Mass Index 31.2 Const General: cooperative, no acute distress, alert and awake Nutritional Appearance: well nourished Orientation/consciousness: patient oriented x3 Limitations: no limitations HENMT Head: Yes normal to inspection and Yes atraumatic Ears: hearing grossly normal bilaterally and external ears normal General nose exam: Normal external nose present, no nasal discharge noted and no epistaxis Face and sinus: Yes normal facial exam, No abrasion and No laceration Mouth: Normal oral and palatal mucosa present, no drooling and no muffled voice Eyes General: appearance normal, both eyes and all related structures Periorbital: periorbital findings normal Eyelids: Yes eyelids normal Conjunctivae: conjunctivae normal Pupils: Equal, round and reactive pupils present EOM: EOMs intact bilaterally Neck Neck: Yes normal visual inspection, Yes full ROM and Yes no lymphadenopathy Chest Chest palpation & inspection: normal inspection of the chest Resp Effort & Inspection: able to speak in complete sentences, Actively coughing Quality: dry and labored Auscultation: wheezes scattered wheezes GI Inspection: Yes normal to inspection Neuro General: patient oriented x3 and moves all extremities Cranial nerves: Yes Equal, round and reactive pupils present Cognition (Neuro): normal cognition Motor exam (neuro): 5/5 motor strength present throughout Sensory Exam: Normal double simultaneous stimulation for sensation Coordination: [id number] test normal Extrem General: Yes normal to inspection, Yes full ROM and Yes capillary refill normal Psych Appearance: grossly normal Mental Status: mental status grossly normal Affect: normal affect Attitude: cooperative Thought process: Normal thought process present Thought content: Normal thought content present Insight: Good insight present (Psych) Medications Administered Discontinued Medications Generic Name Dose Route Start Last Admin Trade Name Freq PRN Reason Stop Dose Admin Albuterol Sulfate 5 mg/ 0 mg 12/29/22 12:13 12/29/22 12:25 Albuterol/Ipratropium 3 ml INHALE 12/29/22 12:14 2.5 each ONCE ONE Administration Ceftriaxone Sodium 1 gm/ 50 mls @ 100 mls/hr 12/29/22 11:19 12/29/22 11:55 Sodium Chloride IV 12/29/22 11:48 Infused ONCE ONE Infusion Medical Decision Making Medical Decision Making [facility] Narrative: Patient is a 77 year old assigned male at with a history of CHF, cognitive impairment, CHF, and a-fib presenting to the emergency department today with shortness of breath and a cough. Patient's physical exam showed diffuse wheezing and increased work of breathing. Patient's blood work showed an elevated BNP of 441, sodium of 129, potassium of 3.0, and a CR of 1.62. Patient's EKG was unremarkable. Patient's chest x-ray showed a probable right upper lobe infiltrate. Patient was initally placed on 5LPM via nasal cannula however, the patient continued to have labored work of breathing. Patient switched to high flow oxygen which helped his labored breathing significantly. Patient's clinical presentation is not consistent with sepsis (@1430). I spoke to the hospitalist team who agreed to admission. I explained my physical exam findings as well as all test results to the patient and the patient's . I answered all questions asked by the patient and the patient's . Patient received IV ceftriaxone. Patient and the patient's verbalized agreement and understanding with this treatment plan and admission. Differential Diagnosis Differential Diagnoses: The differential diagnosis associated with the presentation includes pneumonia, COPD exacerbation Consult Healthcare Provider Management of the patient was discussed with: Hospitalist (agreed to admission) Lab Data MDM Lab Attestation statement: I reviewed the patient's lab results. 12/29/22 12:04 12/29/22 12:04 Labs: Lab Results 12/29/22 12/29/22 12/29/22 Range/Units 12:04 12:04 12:04 WBC 7.9 (4.8-10.8) X10*3/uL RBC 4.25 L (4.60-5.80) X10*6/uL Hgb 11.2 L (14.0-18.0) g/dl Hct 32.4 L D (42.0-52.0) % MCV 76.2 L (80.0-98.0) fL MCH 26.4 L (27.0-33.0) pg MCHC 34.6 (31.0-36.0) g/dl RDW 14.6 (11.0-16.0) % Plt Count 177 D (160-400) X10*3/uL MPV 10.2 (9.4-12.4) fL Immature Gran % (Auto) 1.3 H (0.0-0.4) % Neut % (Auto) 81.8 H (45-73) % Lymph % (Auto) 10.6 L (20-40) % Wilson % (Auto) 5.9 (2-11) % Eos % (Auto) 0.0 (0-4) % Baso % (Auto) 0.4 (0-2) % Lymph # (Auto) 0.8 L (1.2-4.9) X10*3/uL Wilson # (Auto) 0.5 (0.1-1.2) X10*3/uL Eos # (Auto) 0.0 (0.0-0.4) X10*3/uL Baso # (Auto) 0.0 (0.0-0.2) X10*3/uL Abs Immat Gran (auto) 0.10 H (0.00-0.03) X10*3/uL Absolute Neuts (auto) 6.4 (2.0-8.3) x10*3/uL Absolute Nucleated RBC 0.000 (0.0-0.012) X10*3/uL Nucleated RBC % (auto) 0.0 (0.0-0.2) /100WBC VBG pH (7.32-7.43) VBG pCO2 mmHg VBG pO2 mmHg VBG HCO3 (22-26) mmol/L VBG O2 Saturation % VBG Base Excess mmol/L Sodium 129 L (135-145) mmol/L Potassium 3.0 L (3.3-5.1) mmol/L Chloride 92 L (96-108) mmol/L Carbon Dioxide 27 (22-29) mmol/L Anion Gap 13 (12-20) BUN 29 H (9-16) mg/dL Creatinine 1.62 H (0.5-1.4) mg/dL Estim Creat Clear Calc 37.0 Estimated GFR 41 Random Glucose 198 H (60-115) mg/dL Lactic Acid (0.5-2.0) mmol/L Calcium 8.7 D (8.4-10.2) mg/dL Magnesium 1.7 (1.6-2.6) mg/dL Total Bilirubin 1.3 H (0.0-1.0) mg/dL AST 22 (5-37) U/L ALT 15 (0-40) U/L Alkaline Phosphatase 89 (39-117) U/L Troponin I High Sens 15.9 (<3.5-35.0) ng/L B-Natriuretic Peptide (<100) pg/mL Total Protein 6.5 (6.5-8.0) g/dL Albumin 3.8 (3.5-5.0) g/dL COVID-19 (YURIY) (Negative) COVID-19 Clin Com Influenza Type A (DICKSON) (Negative) Influenza Type B (DICKSON) (Negative) Influenza A & B Note 05/12/29/22 12/29/22 Range/Units 12:04 12:04 12:06 WBC (4.8-10.8) X10*3/uL RBC (4.60-5.80) X10*6/uL Hgb (14.0-18.0) g/dl Hct (42.0-52.0) % MCV (80.0-98.0) fL MCH (27.0-33.0) pg MCHC (31.0-36.0) g/dl RDW (11.0-16.0) % Plt Count (160-400) X10*3/uL MPV (9.4-12.4) fL Immature Gran % (Auto) (0.0-0.4) % Neut % (Auto) (45-73) % Lymph % (Auto) (20-40) % Wilson % (Auto) (2-11) % Eos % (Auto) (0-4) % Baso % (Auto) (0-2) % Lymph # (Auto) (1.2-4.9) X10*3/uL Wilson # (Auto) (0.1-1.2) X10*3/uL Eos # (Auto) (0.0-0.4) X10*3/uL Baso # (Auto) (0.0-0.2) X10*3/uL Abs Immat Gran (auto) (0.00-0.03) X10*3/uL Absolute Neuts (auto) (2.0-8.3) x10*3/uL Absolute Nucleated RBC (0.0-0.012) X10*3/uL Nucleated RBC % (auto) (0.0-0.2) /100WBC VBG pH (7.32-7.43) VBG pCO2 mmHg VBG pO2 mmHg VBG HCO3 (22-26) mmol/L VBG O2 Saturation % VBG Base Excess mmol/L Sodium (135-145) mmol/L Potassium (3.3-5.1) mmol/L Chloride (96-108) mmol/L Carbon Dioxide (22-29) mmol/L Anion Gap (12-20) BUN (9-16) mg/dL Creatinine (0.5-1.4) mg/dL Estim Creat Clear Calc Estimated GFR Random Glucose (60-115) mg/dL Lactic Acid 1.3 (0.5-2.0) mmol/L Calcium (8.4-10.2) mg/dL Magnesium (1.6-2.6) mg/dL Total Bilirubin (0.0-1.0) mg/dL AST (5-37) U/L ALT (0-40) U/L Alkaline Phosphatase (39-117) U/L Troponin I High Sens (<3.5-35.0) ng/L B-Natriuretic Peptide 441 H (<100) pg/mL Total Protein (6.5-8.0) g/dL Albumin (3.5-5.0) g/dL COVID-19 (YURIY) (Negative) COVID-19 Clin Com Influenza Type A (DICKSON) Negative (Negative) Influenza Type B (DICKSON) Negative (Negative) Influenza A & B Note See Note 12/29/22 12/29/22 12/29/22 Range/Units 12:06 12:11 13:55 WBC (4.8-10.8) X10*3/uL RBC (4.60-5.80) X10*6/uL Hgb (14.0-18.0) g/dl Hct (42.0-52.0) % MCV (80.0-98.0) fL MCH (27.0-33.0) pg MCHC (31.0-36.0) g/dl RDW (11.0-16.0) % Plt Count (160-400) X10*3/uL MPV (9.4-12.4) fL Immature Gran % (Auto) (0.0-0.4) % Neut % (Auto) (45-73) % Lymph % (Auto) (20-40) % Wilson % (Auto) (2-11) % Eos % (Auto) (0-4) % Baso % (Auto) (0-2) % Lymph # (Auto) (1.2-4.9) X10*3/uL Wilson # (Auto) (0.1-1.2) X10*3/uL Eos # (Auto) (0.0-0.4) X10*3/uL Baso # (Auto) (0.0-0.2) X10*3/uL Abs Immat Gran (auto) (0.00-0.03) X10*3/uL Absolute Neuts (auto) (2.0-8.3) x10*3/uL Absolute Nucleated RBC (0.0-0.012) X10*3/uL Nucleated RBC % (auto) (0.0-0.2) /100WBC VBG pH 7.47 H (7.32-7.43) VBG pCO2 42 mmHg VBG pO2 65 mmHg VBG HCO3 31 H (22-26) mmol/L VBG O2 Saturation 91.0 % VBG Base Excess 7.6 mmol/L Sodium (135-145) mmol/L Potassium (3.3-5.1) mmol/L Chloride (96-108) mmol/L Carbon Dioxide (22-29) mmol/L Anion Gap (12-20) BUN (9-16) mg/dL Creatinine (0.5-1.4) mg/dL Estim Creat Clear Calc Estimated GFR Random Glucose (60-115) mg/dL Lactic Acid (0.5-2.0) mmol/L Calcium (8.4-10.2) mg/dL Magnesium (1.6-2.6) mg/dL Total Bilirubin (0.0-1.0) mg/dL AST (5-37) U/L ALT (0-40) U/L Alkaline Phosphatase (39-117) U/L Troponin I High Sens 17.1 (<3.5-35.0) ng/L B-Natriuretic Peptide (<100) pg/mL Total Protein (6.5-8.0) g/dL Albumin (3.5-5.0) g/dL COVID-19 (YURIY) Negative (Negative) COVID-19 Clin Com See Note Influenza Type A (DICKSON) (Negative) Influenza Type B (DICKSON) (Negative) Influenza A & B Note Independent Interpretation I performed an independent interpretation of an: Plain X-Ray Interpretation: My interpretation is in agreement with the radiologist's impression of this imaging study. EXAMINATION: XR CHEST CLINICAL INFORMATION: Pneumonia. COMPARISON: Chest 04/23/2022 TECHNIQUE: 2 views of the chest were obtained. FINDINGS: The lungs are expanded with patchy density right upper lobe and lingular segments consistent with infiltrate. There is no pleural effusion. Or pleural thickening. Heart size and progress clarities normal. No gross bony abnormality seen. XR/XR chest 2V IMPRESSION: Right upper lobe and lingular infiltrate. No pleural effusion seen. Dictated By: Riley Loyola MD Signed By: Electronically signed by Riley Loyola MD 12/29/22 1025 Independent Historian Clinical information obtained from an independent historian. History obtained from or confirmed by: Spouse Critical Care Time Critical Care Time Critical Care Time: Yes Total Critical Care Time: 35 Attestation: I spent 35 minutes of Critical Care Time with this patient. This does not include time spent on separately reported billable procedures. Discharge Plan Discharge Clinical Impression: Pneumonia, Breath shortness Patient Disposition: Admitted As Inpatient Prescriptions: No Action metoprolol succinate 100 mg tablet extended release 24 hr 100 mg PO DAILY 90 Days Qty: 90 2RF atorvastatin 40 mg tablet 40 mg PO DAILY Qty: 90 3RF levothyroxine 75 mcg tablet 75 mcg PO DAILY 90 Days Qty: 90 2RF oseltamivir [Tamiflu] 75 mg capsule 75 mg PO BID 5 Days Qty: 10 0RF cholecalciferol (vitamin D3) [Vitamin D3] 25 mcg (1,000 unit) Tablet 25 mcg PO DAILY acetaminophen 325 mg Tablet 650 mg PO Q6H PRN (Reason: Pain) hydrochlorothiazide 12.5 mg tablet 12.5 mg PO DAILY 90 Days Qty: 90 3RF (DME) blood-glucose meter [FreeStyle Lite Meter] Kit See Rx Instructions .ROUTE .MEDSUPPLY Qty: 1 0RF Rx Instructions: As directed glipizide 5 mg tablet extended release 24hr 5 mg PO DAILY Qty: 90 2RF Eliquis 5 mg tablet 5 mg PO BID 90 Days Qty: 180 3RF
--- NOTE | 2022-12-29 11:15 | ECG_ITS ---
Test Reason : SOB Blood Pressure : / mmHG Vent. Rate : 094 BPM Atrial Rate : 094 BPM P-R Int : 196 ms QRS Dur : 076 ms QT Int : 366 ms P-R-T Axes : 076 038 037 degrees QTc Int : 457 ms Normal sinus rhythm Nonspecific ST and T wave abnormality Abnormal ECG When compared with ECG of 05-DEC-2021 22:08, Premature supraventricular complexes are no longer Present Referred By: Zhane Paulson Electronically Signed By:DANIEL DEL ROSARIO
[2022-12-29] MEDS: cefTRIAXone sodium 1 GM in 0.9 % Sodium Chloride 50 ML IV (11:25)
[2022-12-29 12:16] LABS: Venous Blood Gas Refer to POC result
[2022-12-29 12:17] LABS: MANUAL DIFF FLAG NO
[2022-12-29 12:18] LABS: VBG Base Excess 7.6 mmol/L; VBG HCO3 31 mmol/L (22-26); VBG pCO2 42 mmHg; VBG pH 7.47 (7.32-7.43); VBG pO2 65 mmHg
[2022-12-29 12:19] LABS: Basophils Percent Auto 0.4 % (0-2); Hematocrit 32.4 % (42.0-52.0); Hemoglobin 11.2 g/dl (14.0-18.0); Imm Gran Pct Auto 1.3 % (0.0-0.4); Lymphocytes Absolute Auto 0.8 X10*3/uL (1.2-4.9); Lymphocytes Percent Auto 10.6 % (20-40); Mean Corpuscular HGB Conc 34.6 g/dl (31.0-36.0); Mean Corpuscular Hemoglobin 26.4 pg (27.0-33.0); Mean Corpuscular Volume 76.2 fL (80.0-98.0); Mean Platelet Volume 10.2 fL (9.4-12.4); Monocytes Absolute Auto 0.5 X10*3/uL (0.1-1.2); Monocytes Percent Auto 5.9 % (2-11); Neutrophils Absolute Auto 6.4 x10*3/uL (2.0-8.3); Neutrophils Percent Auto 81.8 % (45-73); Platelet Count 177 X10*3/uL (160-400); Red Blood Count 4.25 X10*6/uL (4.60-5.80); Red Cell Distribution Width 14.6 % (11.0-16.0); White Blood Count 7.9 X10*3/uL (4.8-10.8)
[2022-12-29 12:29] LABS: Lactic Acid 1.3 mmol/L (0.5-2.0)
[2022-12-29 12:37] LABS: IDNOW Serial# 9DB6401D; Influenza A Negative (Negative); Influenza B2 Negative (Negative)
[2022-12-29 12:38] LABS: COVID-19 Test Negative (Negative); IDNOW Serial# BCCEAD1C
[2022-12-29 12:39] LABS: Troponin-I High Sensitivity 15.9 ng/L (<3.5-35.0)
[2022-12-29 12:40] LABS: B Type Natriuretic Peptide 441 pg/mL (<100)
[2022-12-29 12:56] LABS: Alanine Aminotransferase 15 U/L (0-40); Albumin Level 3.8 g/dL (3.5-5.0); Alkaline Phosphatase 89 U/L (39-117); Anion Gap 13 (12-20); Aspartate Amino Transferase 22 U/L (5-37); Bilirubin Total 1.3 mg/dL (0.0-1.0); Blood Urea Nitrogen 29 mg/dL (9-16); Calcium 8.7 mg/dL (8.4-10.2); Carbon Dioxide 27 mmol/L (22-29); Chloride 92 mmol/L (96-108); Estimated Glomerular Filt Rate 41; Glucose Random 198 mg/dL (60-115); Magnesium 1.7 mg/dL (1.6-2.6); Sodium 129 mmol/L (135-145); Total Protein 6.5 g/dL (6.5-8.0)
--- NOTE | 2022-12-29 14:03 | PHA.MEDREC ---
Pharmacy Consult ? Medication Reconciliation Pharmacy has completed the medication reconciliation. Spoke with patient's to confirm medicaitons. Reports that she has not picked up the Tamiflu yet, therefore I left it unconfirmed. Anusha Del Toro, PharmD
[2022-12-29 14:20] LABS: Troponin-I High Sensitivity 17.1 ng/L (<3.5-35.0)
[2022-12-29] MEDS: Potassium Chloride ER 20 MEQ TAB.ER.PRT 40 MEQ PO (15:54)
--- NOTE | 2022-12-29 16:40 | P.HPHOSP_ITS ---
The patient was seen and evaluated with MELL Jo. I agree with her note, assessment and plan with the following. 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 History of Present Illness Date of Service: 12/29/22 Chief Complaint: Shortness of breath and weakness 77-year-old man presenting to the ER with complaints of worsening shortness breath, cough, nausea with dry heaves, fever and general fatigue over the last 3 days. He reported cough with brown phlegm and a fever of 101. He reported that he had been using cough suppressants but they were not working. He reported feeling weaker and weaker over the last couple a days and barely able to get out of bed today. He also reported chest pressure that would come and go with no radiation or other associated symptoms located substernally only with coughing. He did call his primary care provider and reported to them symptoms of flu. He was prescribed Tamiflu but due to his worsening symptoms he was told by his primary provider to come to the ER for further evaluation. Patient denied any recent travel though he reported that his had recently went on a cruise. He denied sick contacts, vomiting, diarrhea, recent illness. In the ER, chest CT found bilateral multilobar areas of increased black ground-glass attenuation with air bronchograms and small right pleural effusion with severe coronary artery calcification and probable splenic infarct. He was noted to be in atrial fibrillation with heart rate in the 100s, sodium 129, potassium 3.0, creatinine 1.62 with a history of chronic kidney disease, BNP 441, total bilirubin 1.3, negative COVID, flu. In the ER he was given a dose of Rocephin, albuterol, oral potassium and IV Lasix. Be admitted for further management and treatment of community-acquired pneumonia and acute on chronic congestive heart failure. Review of Systems Review of Systems: Denies any recent fever chills or decrease in appetite respiratory see HPI cardiovascular see HPI gastrointestinal see HPI genitourinary denies any dysuria frequency or hematuria musculoskeletal denies any joint pain or swelling neuropsych denies any weakness or seizures all other systems reviewed are negative FORMERLY [facility], [facility] Medical History (Updated 12/29/22 @ 16:43 by Jenn Barth NP) Anxiety and depression CHF (congestive heart failure) Hypercholesterolemia Non Hodgkin's lymphoma LARISSA (obstructive sleep apnea) PAF (paroxysmal atrial fibrillation) Peptic ulcer disease Thrombocytopenia Type 2 diabetes mellitus with unspecified complications Vitamin D deficiency Family History Father Lung cancer Mother Breast cancer Sister Breast cancer Brother Substance use disorder Sister No problems noted. Son No problems noted. Daughter No problems noted. Surgical History H/O colonoscopy H/O lymph node biopsy History of esophagogastroduodenoscopy (EGD) History of shoulder surgery Hx of cataract extraction Social History Household Members: Spouse, Family and Children Housing: House Are you a primary floor care technician to a significant other at home: No Do you presently have visiting nurse or other home services: No Alcohol intake: unknown Patient Tobacco Use Status: Never used Tobacco e-Cigarette/Vaping Use: Never Used Second Hand Smoke Exposure: No Advance Directives: Yes Advance Directives on File: Yes Advance Directives Date on File: 12/19/21 service: No Current occupational status: retired Cognitive needs: No Hearing needs: No Vision needs: Yes Meds Allergies Allergy/AdvReac Type Severity Reaction Status Date / Time gabapentin AdvReac Intermediate lethargy Verified 12/29/22 11:23 lisinopril AdvReac Intermediate Cough Verified 12/29/22 11:23 metformin AdvReac Intermediate lethargy Verified 12/29/22 11:23 Active Medications: Current Medications Pharmacy Consult (Consult Rx Perform Med Rec) 1 each MISCELLANE ONCE PRN PRN Reason: Consult order Home Medications Medication Instructions Recorded Confirmed Last Taken Type cholecalciferol (vitamin D3) 25 25 mcg PO DAILY 12/06/21 12/29/22 12/28/22 History mcg (1,000 unit) tablet (Vitamin D3) acetaminophen 325 mg tablet 650 mg PO Q6H PRN Pain 12/29/22 12/29/22 Unknown History Physical Exam Vital Signs and Narrative: Vital Signs: Last Vital Signs Temp 99.1 F 12/29/22 15:56 Pulse 99 12/29/22 15:56 Resp 18 12/29/22 15:56 BP 156/69 H 12/29/22 15:56 Pulse Ox 95 12/29/22 15:56 O2 Del Method High Flow Nasal C annula 12/29/22 15:56 O2 Flow Rate 52 12/29/22 15:56 Oxygen Flow Rate 5 12/29/22 11:23 BMI result Body Mass Index 31.2 Appearing in no acute distress head is normocephalic atraumatic eyes pupils are PERRLA sclera is anicteric mouth throat mucous membranes are intact and moist neck is supple no lymphadenopathy, no JVD noted lung sounds are clear to auscultation heart irregularly irregular positive bowel sounds, abdomen is soft, nontender neuro patient is alert x3, no focal deficits Results Labs 12/29/22 12:04 12/29/22 12:04 Labs: Laboratory Results - last 24 hr 12/29/22 12/29/22 12/29/22 12:04 12:04 12:04 MCV 76.2 L MCH 26.4 L MCHC 34.6 RDW 14.6 Plt Count 177 D MPV 10.2 Immature Gran % (Auto) 1.3 H Neut % (Auto) 81.8 H Lymph % (Auto) 10.6 L [place] % (Auto) 5.9 Eos % (Auto) 0.0 Baso % (Auto) 0.4 Lymph # (Auto) 0.8 L [place] # (Auto) 0.5 Eos # (Auto) 0.0 Baso # (Auto) 0.0 Abs Immat Gran (auto) 0.10 H Absolute Neuts (auto) 6.4 Absolute Nucleated RBC 0.000 Nucleated RBC % (auto) 0.0 VBG pH VBG pCO2 VBG pO2 VBG HCO3 VBG O2 Saturation VBG Base Excess Anion Gap 13 Estim Creat Clear Calc 37.0 Estimated GFR 41 Random Glucose 198 H Lactic Acid Calcium 8.7 D Magnesium 1.7 Total Bilirubin 1.3 H AST 22 ALT 15 Alkaline Phosphatase 89 Troponin I High Sens 15.9 B-Natriuretic Peptide Total Protein 6.5 Albumin 3.8 COVID-19 (YURIY) COVID-19 Clin Com Influenza Type A (DICKSON) Influenza Type B (DICKSON) Influenza A & B Note 12/29/22 12/29/22 12/29/22 12:04 12:04 12:06 MCV MCH MCHC RDW Plt Count MPV Immature Gran % (Auto) Neut % (Auto) Lymph % (Auto) [place] % (Auto) Eos % (Auto) Baso % (Auto) Lymph # (Auto) [place] # (Auto) Eos # (Auto) Baso # (Auto) Abs Immat Gran (auto) Absolute Neuts (auto) Absolute Nucleated RBC Nucleated RBC % (auto) VBG pH VBG pCO2 VBG pO2 VBG HCO3 VBG O2 Saturation VBG Base Excess Anion Gap Estim Creat Clear Calc Estimated GFR Random Glucose Lactic Acid 1.3 Calcium Magnesium Total Bilirubin AST ALT Alkaline Phosphatase Troponin I High Sens B-Natriuretic Peptide 441 H Total Protein Albumin COVID-19 (YURIY) COVID-19 Clin Com Influenza Type A (DICKSON) Negative Influenza Type B (DICKSON) Negative Influenza A & B Note See Note 12/29/22 12/29/22 12/29/22 12:06 12:11 13:55 MCV MCH MCHC RDW Plt Count MPV Immature Gran % (Auto) Neut % (Auto) Lymph % (Auto) [place] % (Auto) Eos % (Auto) Baso % (Auto) Lymph # (Auto) [place] # (Auto) Eos # (Auto) Baso # (Auto) Abs Immat Gran (auto) Absolute Neuts (auto) Absolute Nucleated RBC Nucleated RBC % (auto) VBG pH 7.47 H VBG pCO2 42 VBG pO2 65 VBG HCO3 31 H VBG O2 Saturation 91.0 VBG Base Excess 7.6 Anion Gap Estim Creat Clear Calc Estimated GFR Random Glucose Lactic Acid Calcium Magnesium Total Bilirubin AST ALT Alkaline Phosphatase Troponin I High Sens 17.1 B-Natriuretic Peptide Total Protein Albumin COVID-19 (YURIY) Negative COVID-19 Clin Com See Note Influenza Type A (DICKSON) Influenza Type B (DICKSON) Influenza A & B Note Imaging Radiologist's Impressions: Impressions Chest CT 12/29/22 15:20 IMPRESSION: Bilateral multilobar areas of increased groundglass attenuation, nodular opacities and denser airspace disease with air bronchograms. This probably represents pneumonia. Diffuse upper normal-size mediastinal lymph nodes. Small right pleural effusion. Slightly enlarged pulmonary arteries and ascending thoracic aorta. Severe coronary artery calcification. Probable splenic infarct. Fleischner guidelines were followed. Assessment and Plan (1) Pneumonia: Status: Acute Plan 77-year-old man admitted with community-acquired pneumonia and CHF Community-acquired pneumonia Chest CT showing bilateral multi lobar areas of ground-glass attenuation along with air bronchograms Start Rocephin and doxycycline Continue supplemental oxygen Follow blood cultures [place] for cough DuoNebs as needed Acute on chronic HFpEF last echo 2021 with normal EF give lasix IV and check Echo cardiology consultation Hyponatremia possibly secondary to CHF diurese and follow BMP Hypokalemia Normal magnesium Likely secondary to poor oral intake Replete and follow BMP Chest pain Likely pleuritic as it is only present when he coughs no ischemic changes on EKG normal troponin Atrial fibrillation with rapid ventricular response Likely secondary to infection Heart rate low 100s Continue apixaban, metoprolol Microcytic anemia No obvious bleeding Check iron studies Follow H&H Diabetes mellitus Sliding scale, ADA diet Hypothyroidism Continue levothyroxine CKD stage 3 Appears to be at baseline Monitor BMP Obstructive sleep apnea CPAP Obesity. BMI 31.2 Discussed importance of weight management as this may be contributing to worsening of other comorbidities DVT prophylaxis with Donaldo Attending Dr. Patricia Full code Two inpatient midnights for treatment community-acquired pneumonia requiring IV antibiotics and acute on chronic congestive heart failure requiring IV diuretics Time Spent With Patient Time: Total time managing care of this patient today ____ minutes. Quality Stroke Does the patient have a stroke diagnosis?: No VTE Prior VTE?: No VTE Risk Level:: Medical - moderate - high VTE Device Contraindication: Treatment Not Indicated VTE Drug Contraindication: N/A - Med Ordered
[2022-12-29] MEDS: Doxycycline Hyclate 100 MG in 0.9 % Sodium Chloride 250 ML 166.67 MG IV (17:16)
[2022-12-29] MEDS: Furosemide 20 MG/2 ML VIAL IVPUSH (17:16)
[2022-12-29 17:29] LABS: Appearance Urine Clear; Color Urine Yellow; Glucose Urine UA Negative (Negative); Leukocyte Esterase Urine Negative (Negative); Nitrite Urine Negative (Negative); PH 5.5 (5.0-9.0); UMIC TRIGGER UACC YES; Urine Blood Negative (Negative); Urine Ketones Negative (Negative); Urine Protein 100 (2+) mg/dL (Neg-Trace)
--- NOTE | 2022-12-29 17:30 | PC.NURSE ---
AOX4 CURRENTLY ON HFNC, MEDICATIONS GIVEN ORDERED. WAITING FOR BEDASSIGNMENT
[2022-12-29 17:38] LABS: Bacteria Urine None Seen (None Seen); RBC Urine 0-2 /HPF (0-2); WBC Urine 0-5 /HPF (0-5)
[2022-12-29 17:44] LABS: Anion Gap 15 (12-20); Blood Urea Nitrogen 27 mg/dL (9-16); Calcium 8.5 mg/dL (8.4-10.2); Carbon Dioxide 27 mmol/L (22-29); Chloride 92 mmol/L (96-108); Estimated Glomerular Filt Rate 45; Glucose Random 145 mg/dL (60-115); Potassium 3.2 mmol/L (3.3-5.1); Sodium 131 mmol/L (135-145)
[2022-12-29 18:08] LABS: Glucose, Whole Blood 160 mg/dL (60-115)
[2022-12-29 21:27] LABS: Glucose, Whole Blood 182 mg/dL (60-115)
--- NOTE | 2022-12-29 21:28 | PC.RT ---
Pt placed on 8L hunter cannula for transport. Pt requests to stay on this for comfort. SPO2 is 95, Pt is breathing comfortably. RN aware, will monitor for any signs of distress or desaturation,
[2022-12-29] MEDS: Apixaban 5 MG TABLET PO (22:07)
[2022-12-30] MEDS: Acetaminophen 325 MG TABLET 650 MG PO (00:50)
[2022-12-30 03:32] LABS: Glucose, Whole Blood 166 mg/dL (60-115)
[2022-12-30 04:00] VITALS: BP 143/65; PULSE 81; RESP 18; TEMP 36.2; O2SAT 96
[2022-12-30] MEDS: Doxycycline Hyclate 100 MG in 0.9 % Sodium Chloride 250 ML 166.67 MG IV ×2 (05:50→17:35)
[2022-12-30] MEDS: Levothyroxine Sodium 75 MCG TABLET PO (05:51)
[2022-12-30 06:00] VITALS: BMI 31.4
[2022-12-30 06:20] LABS: Alanine Aminotransferase 14 U/L (0-40); Albumin Level 3.6 g/dL (3.5-5.0); Alkaline Phosphatase 78 U/L (39-117); Anion Gap 15 (12-20); Aspartate Amino Transferase 23 U/L (5-37); Bilirubin Total 1.1 mg/dL (0.0-1.0); Blood Urea Nitrogen 28 mg/dL (9-16); Calcium 8.8 mg/dL (8.4-10.2); Carbon Dioxide 30 mmol/L (22-29); Chloride 92 mmol/L (96-108); Estimated Glomerular Filt Rate 45; Glucose Random 156 mg/dL (60-115); Potassium 3.6 mmol/L (3.3-5.1); Sodium 133 mmol/L (135-145); Total Protein 6.1 g/dL (6.5-8.0)
[2022-12-30 06:26] LABS: B Type Natriuretic Peptide 155 pg/mL (<100)
--- NOTE | 2022-12-30 07:00 | CA_ITS ---
Transthoracic Echocardiogram Patient (Last, First, Middle): Augustus Reeder, Gender: Male Date of : 1945 Age: 77 Procedure Date: 12/30/2022 Procedure Type: Transthoracic Echocardiogram [place] [facility] [place]: 165.1 cm Weight: 85.28 kg BSA: 1.93 m2 Heart Rate: bpm BP: 143 / 65 mmHg Front Maker: Referring MD: Jenn Barth NP Symptoms: CHF Study Quality: Fair ECG Rhythm: Sinus Conclusions: - The left ventricular systolic function is normal. The calculated ejection fraction is 67% by biplane method. - No obvious valvular pathology seen on this study. Findings Left Ventricle Normal left ventricular cavity size. There is mildly increased left ventricular wall thickness. The left ventricular systolic function is normal. The calculated ejection fraction is 67% by biplane method. There is no evidence of regional wall motion abnormalities. Diastolic function is indeterminate on the basis of available data. Right Ventricle Normal right ventricular cavity size and systolic function. Atria Both atria are normal in size. Aortic Valve There is a normal trileaflet aortic valve. There is no aortic valve stenosis. There is no aortic valve regurgitation. Mitral Valve The mitral valve appears normal. There is no mitral valve regurgitation. There is no mitral valve stenosis. Pulmonic Valve The pulmonic valve is likely normal. Tricuspid Valve There is trace tricuspid valve regurgitation. There is no evidence of pulmonary hypertension. Great Vessels The asc aorta is normal in size. Venous The inferior vena cava is normal in size and collapses greater than 50% with inspiration. Pericardium/Pleural There is no evidence of pericardial effusion. Prior Study Comparison No significant change compared to prior study dated: 11/20/2021. Recommendations, Care & Conclusions No obvious valvular pathology seen on this study. Measurements 2D Linear Measurements IVSd: 1.20 0.6-0.9/0.6-1.0 cm LVIDd: 4.64 3.9-5.3/4.2-5.9 cm LVIDd Index: 2.40 2.4-3.2/2.2-3.1 cm/m2 LVIDs: 2.94 2.0-3.6 cm LVPWd: 1.24 0.7-1.1 cm Ao Root: 3.10 2.1-3.5 cm LA Diam: 3.70 2.7-3.8/3.0-4.0 cm LAIDs Index: 1.92 1.5-2.3 cm/m2 LV Mass: 265.20 67-162/88-224 g LV Mass Index: 137.41 43-95/49-115 g/m2 LVOT Diam: 2.10 3.0+(-)1.3 cm 2D Systolic Function EF 4C: 68.40 >55% EF 2C: 61.20 >55% EF BiP: 66.80 >55% Mitral Valve MV Pk E: 0.91 MV PK A: 0.48 MV Decel Time: 163.00 E/A: 1.90 E'Lateral: 7.72 E'Medial: 5.66 E/E' Med: 16.00 E/E' Lat: 11.80 PHT: 48.00 MVA PHT: 4.58 Decel Maries: 5.59 Aortic Valve AoV Pk Ignacio: 1.23 AoV Mn Ignacio: 0.79 AoV VTI: 0.25 AoV Pk Grad: 6.00 Aov Mn Grad: 3.00 TAMARA Cont.VTI: 2.99 LVOT LVOT Pk Ignacio: 1.07 LVOT Mn Ignacio: 0.67 LVOT VTI: 0.21 LVOT Pk Grad: 5.00 LVOT Mn Grad: 2.00 LVOT Diam: 2.10 LVOT Area: 3.46 Diastolic Function MV Pk E: 0.91 MV Pk A: 0.48 E/A: 1.90 E'Medial: 5.66 E/E' Med: 16.00 E' Laterial: 7.72 E/E' Lat: 11.80 Right Ventricle TAPSE (mm): 25.00 TVS' Ignacio: 13.00 Tricuspid Valve TR Pk Ignacio: 2.24 TR Pk Grad: 20.00 RA Press: 3.00 RVSP: 23.00 Great Vessels Aorta Ao Root-2D: 3.10 2.0-3.7 cm Ao Asc: 3.90 2.1-3.4 cm Pulmonary Valve PV Pk Ignacio: 1.02 Peak PV Grad: 4.00 Updated in Other Vendor System with Status of Final Brain Su MD electronically signed on 12/30/2022 3:53:15 PM with status of Final
[2022-12-30 07:38] VITALS: BP 154/77; PULSE 88; RESP 20; TEMP 36.2; O2SAT 95
[2022-12-30] MEDS: Furosemide 20 MG/2 ML VIAL IVPUSH ×2 (07:56→17:36)
[2022-12-30] MEDS: Apixaban 5 MG TABLET PO ×2 (07:56→20:42)
[2022-12-30] MEDS: Cholecalciferol (Vitamin D3) 25 MCG TABLET PO (07:57)
[2022-12-30] MEDS: Metoprolol Succinate ER 100 MG TAB.ER.24H PO (07:57)
[2022-12-30] MEDS: 0.9 % Sodium Chloride Flush 3 ML SYRINGE IVFLUSH ×3 (07:57→20:42)
[2022-12-30] MEDS: Atorvastatin Calcium 40 MG TABLET PO (07:57)
--- NOTE | 2022-12-30 08:33 | MHC.CM.PN ---
CM met with Patient at bedside and addressed IMM with Him, providing him with the original and placing a copy on the chart. 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 Home/self care is the goal and CM has initiated and will follow for dc planning. Patient has received Moderna/Covid vax x3 and his PCP is Dr. Morales Po.
--- NOTE | 2022-12-30 10:06 | PM.CNCAR ---
History of Present Illness History of Present Illness Date of Service: 12/30/22 Chief complaint: CAP, CHF Narrative: This is a cardiology consultation regarding congestive heart failure. He is generally seen in the clinic and last evaluated few months back. He had a history of atrial fibrillation checked during the stress test. Had some shortness of breath. Then underwent cardioversion. However, he fell there is no difference whatsoever between staying atrial fibrillation versus sinus. Then put on amiodarone which was later stopped. When he came to clinic, he was in sinus rhythm. Otherwise, he also carries a diastolic heart failure diagnosis but not taking regular diuretics. Has hypertension, diabetes and obstructive sleep apnea. Current admission is for shortness of breath. It seems that he does have some shortness of breath at baseline but over the last few weeks has been much worse. Additionally some coughing. He is being treated for pneumonia as well as heart failure. He also had cough, fever, brown phlegm. Review of Systems Review of Systems: Yes all other systems are reviewed and are negative Constitutional: Constitutional: Reports as per HPI and Reports no additional constitutional complaints Eyes: Eyes: Reports as per HPI and Denies no additional eye complaints ENT: Denies system reviewed and no additional complaints, except as documented and Reports as per HPI Cardiovascular: Cardiovascular: Reports as per HPI, Reports no additional cardiovascular complaints, Denies acrocyanosis, Denies cool extremities, Denies chest pain, Denies leg edema, Denies lightheadedness, Denies palpitations and Reports dyspnea Respiratory: Respiratory: Reports as per HPI, Denies no additional respiratory complaints and Reports dyspnea Gastrointestinal: Gastrointestinal: Reports as per HPI and Denies no additional gastrointestinal complaints Genitourinary: Genitourinary: Reports no additional male genitourinary complaints and Reports as per HPI Musculoskeletal: Musculoskeletal: Reports no additional musculoskeletal complaints and Reports as per HPI Integumentary/Breasts: Skin/Breast: Reports system reviewed and no additional complaints, except as docu Neurologic: Reports system reviewed and no additional complaints, except as documented and Reports as per HPI Psychiatric: Psychiatric: Reports no additional psychiatric complaints and Reports as per HPI Endocrine: Endocrine: Reports no additional endocrine complaints, Reports as per HPI and Denies palpitations Hematologic/Lymphatic: Hematologic/Lymphatic: Reports no additional hematologic/lymphatic complaints and Reports as per HPI Allergic/Immunologic: Allergic/Immunologic: Reports no additional allergic/immunologic complaints and Reports as per HPI [facility] Past Medical History Medical History (Updated 12/30/22 @ 10:12 by Brain Su MD) Anxiety and depression CHF (congestive heart failure) Hypercholesterolemia Non Hodgkin's lymphoma LARISSA (obstructive sleep apnea) PAF (paroxysmal atrial fibrillation) Peptic ulcer disease Thrombocytopenia Type 2 diabetes mellitus with unspecified complications Vitamin D deficiency Family History Family History Father Lung cancer Mother Breast cancer Sister Breast cancer Brother Substance use disorder Sister No problems noted. Son No problems noted. Daughter No problems noted. Surgical History Surgical History H/O colonoscopy H/O lymph node biopsy History of esophagogastroduodenoscopy (EGD) History of shoulder surgery Hx of cataract extraction Social History Social History Household Members: Spouse Housing: House Are you a primary primary care pediatrician to a significant other at home: No Do you presently have visiting nurse or other home services: No Alcohol intake: never Patient Tobacco Use Status: Never used Tobacco Smoked in Last 30 Days: No e-Cigarette/Vaping Use: Never Used Second Hand Smoke Exposure: No Advance Directives: Yes Advance Directives on File: Yes Advance Directives Date on File: 12/19/21 Recently lost weight without trying: No How much weight loss: Not applicable Eating poorly because of decreased appetite: No Nutrition screen score: 0 Nutrition Risks: No Nutritional Risk Poor oral hygiene: No service: No Current occupational status: retired Cognitive needs: No Hearing needs: No Vision needs: Yes Meds Allergies Allergy/AdvReac Type Severity Reaction Status Date / Time gabapentin AdvReac Intermediate lethargy Verified 12/29/22 11:23 lisinopril AdvReac Intermediate Cough Verified 12/29/22 11:23 metformin AdvReac Intermediate lethargy Verified 12/29/22 11:23 Active Medications: Current Medications Acetaminophen (Acetaminophen 325 Mg Tablet) 650 mg PO Q6H PRN PRN Reason: Pain, Mild (Pain Scale 1-3) Last Admin: 12/30/22 00:50 Dose: 650 mg Albuterol Sulfate (Albuterol Sulfate (0.083%) 2.5 Mg/3 Ml Vial.Neb) 2.5 mg INHALE RQ4H PRN PRN Reason: Wheezing Apixaban (Apixaban 5 Mg Tablet) 5 mg PO BID [facility] Last Admin: 12/30/22 07:56 Dose: 5 mg Atorvastatin Calcium (Atorvastatin Calcium 40 Mg Tablet) 40 mg PO DAILY [facility] Last Admin: 12/30/22 07:57 Dose: 40 mg Benzonatate (Benzonatate 100 Mg Capsule) 100 mg PO TID PRN PRN Reason: Cough Furosemide (Furosemide 20 Mg/2 Ml Vial) 20 mg IVPUSH BID@0900,1800 [facility]; Protocol Last Admin: 12/30/22 07:56 Dose: 20 mg Ceftriaxone Sodium 1 gm/ (Sodium Chloride) 50 mls @ 100 mls/hr IV Q24H [facility] Doxycycline Hyclate 100 mg/ (Sodium Chloride) 250 mls @ 166.67 mls/hr IV Q12H [facility] Last Infusion: 12/30/22 07:41 Dose: Infused Levothyroxine Sodium (Levothyroxine Sodium 75 Mcg Tablet) 75 mcg PO DAILY@0600 [facility] Last Admin: 12/30/22 05:51 Dose: 75 mcg Metoprolol Succinate (Metoprolol Succinate Er 100 Mg Tab.Er.24h) 100 mg PO DAILY [facility]; Protocol Last Admin: 12/30/22 07:57 Dose: 100 mg Ondansetron HCl (Ondansetron Hcl 4 Mg/2 Ml Vial) 4 mg IVPUSH Q8H PRN PRN Reason: Nausea and Vomiting Pharmacy Consult (Consult Rx Perform Med Rec) 1 each MISCELLANE ONCE PRN PRN Reason: Consult order Sodium Chloride (0.9 % Sodium Chloride Flush 3 Ml Syringe) 3 ml IVFLUSH QSHIFT [facility] Last Admin: 12/30/22 07:57 Dose: 3 ml Vitamin D (Cholecalciferol (Vitamin D3) 25 Mcg Tablet) 25 mcg PO DAILY [facility] Last Admin: 12/30/22 07:57 Dose: 25 mcg Home Medications Medication Instructions Recorded Confirmed Last Taken Type cholecalciferol (vitamin D3) 25 25 mcg PO DAILY 12/06/21 12/29/22 12/28/22 History mcg (1,000 unit) tablet (Vitamin D3) acetaminophen 325 mg tablet 650 mg PO Q6H PRN Pain 12/29/22 12/29/22 Unknown History Physical Exam Vital Signs: Vital Signs: Last Vital Signs Temp 97.2 F 12/30/22 07:38 Pulse 88 12/30/22 07:38 Resp 20 12/30/22 07:38 BP 154/77 H 12/30/22 07:38 Pulse Ox 95 12/30/22 07:38 O2 Del Method Nasal Cannula 12/30/22 07:38 O2 Flow Rate 8 12/30/22 07:38 Oxygen Flow Rate 5 12/29/22 11:23 BMI result Body Mass Index 31.4 Const: General: comfortable and no acute distress Orientation/consciousness: patient oriented x3 HEENT: Other: Unremarkable Head: Yes normal to inspection Neck: Neck: Yes normal visual inspection Chest: Chest palpation & inspection: normal inspection of the chest Resp: Auscultation: rhonchi, wheezes and diminished lung sounds Cardio: Palpation: normal PMI Heart sounds: S1 normal heart sound present, S2 normal heart sound present, no gallops, no murmurs and no rubs GI: Palpation (GI): Soft to palpation Back/Spine/Pelvis: Other: unremarkable Skin: General skin exam: no rashes or lesions noted Neuro: General: patient oriented x3 Extrem: General: Yes normal to inspection Psych: Mental Status: mental status grossly normal Objective Labs and Meds 12/29/22 12:04 12/30/22 05:37 Lab results: Laboratory Results - last 24 hr 12/29/22 12/29/22 12/29/22 12:04 12:04 12:04 WBC 7.9 RBC 4.25 L Hgb 11.2 L Hct 32.4 L D MCV 76.2 L MCH 26.4 L MCHC 34.6 RDW 14.6 Plt Count 177 D MPV 10.2 Immature Gran % (Auto) 1.3 H Neut % (Auto) 81.8 H Lymph % (Auto) 10.6 L [place] % (Auto) 5.9 Eos % (Auto) 0.0 Baso % (Auto) 0.4 Lymph # (Auto) 0.8 L [place] # (Auto) 0.5 Eos # (Auto) 0.0 Baso # (Auto) 0.0 Abs Immat Gran (auto) 0.10 H Absolute Neuts (auto) 6.4 Absolute Nucleated RBC 0.000 Nucleated RBC % (auto) 0.0 VBG pH VBG pCO2 VBG pO2 VBG HCO3 VBG O2 Saturation VBG Base Excess Sodium 129 L Potassium 3.0 L Chloride 92 L Carbon Dioxide 27 Anion Gap 13 BUN 29 H Creatinine 1.62 H Estim Creat Clear Calc 37.0 Estimated GFR 41 POC Glucose Random Glucose 198 H Lactic Acid Calcium 8.7 D Magnesium 1.7 Total Bilirubin 1.3 H AST 22 ALT 15 Alkaline Phosphatase 89 Troponin I High Sens 15.9 B-Natriuretic Peptide Total Protein 6.5 Albumin 3.8 Urine Color Urine Appearance Urine pH Ur Specific [place] Urine Protein Urine Glucose (UA) Urine Ketones Urine Blood Urine Nitrite Ur Leukocyte Esterase Urine RBC Urine WBC Ur Squamous Epith Cells Urine Bacteria Hyaline Casts COVID-19 (YURIY) COVID-19 Clin Com Influenza Type A (DICKSON) Influenza Type B (DICKSON) Influenza A & B Note 12/29/22 12/29/22 12/29/22 12:04 12:04 12:06 WBC RBC Hgb Hct MCV MCH MCHC RDW Plt Count MPV Immature Gran % (Auto) Neut % (Auto) Lymph % (Auto) [place] % (Auto) Eos % (Auto) Baso % (Auto) Lymph # (Auto) [place] # (Auto) Eos # (Auto) Baso # (Auto) Abs Immat Gran (auto) Absolute Neuts (auto) Absolute Nucleated RBC Nucleated RBC % (auto) VBG pH VBG pCO2 VBG pO2 VBG HCO3 VBG O2 Saturation VBG Base Excess Sodium Potassium Chloride Carbon Dioxide Anion Gap BUN Creatinine Estim Creat Clear Calc Estimated GFR POC Glucose Random Glucose Lactic Acid 1.3 Calcium Magnesium Total Bilirubin AST ALT Alkaline Phosphatase Troponin I High Sens B-Natriuretic Peptide 441 H Total Protein Albumin Urine Color Urine Appearance Urine pH Ur Specific [place] Urine Protein Urine Glucose (UA) Urine Ketones Urine Blood Urine Nitrite Ur Leukocyte Esterase Urine RBC Urine WBC Ur Squamous Epith Cells Urine Bacteria Hyaline Casts COVID-19 (YURIY) COVID-19 Clin Com Influenza Type A (DICKSON) Negative Influenza Type B (DICKSON) Negative Influenza A & B Note See Note 12/29/22 12/29/22 12/29/22 12:06 12:11 13:55 WBC RBC Hgb Hct MCV MCH MCHC RDW Plt Count MPV Immature Gran % (Auto) Neut % (Auto) Lymph % (Auto) [place] % (Auto) Eos % (Auto) Baso % (Auto) Lymph # (Auto) [place] # (Auto) Eos # (Auto) Baso # (Auto) Abs Immat Gran (auto) Absolute Neuts (auto) Absolute Nucleated RBC Nucleated RBC % (auto) VBG pH 7.47 H VBG pCO2 42 VBG pO2 65 VBG HCO3 31 H VBG O2 Saturation 91.0 VBG Base Excess 7.6 Sodium Potassium Chloride Carbon Dioxide Anion Gap BUN Creatinine Estim Creat Clear Calc Estimated GFR POC Glucose Random Glucose Lactic Acid Calcium Magnesium Total Bilirubin AST ALT Alkaline Phosphatase Troponin I High Sens 17.1 B-Natriuretic Peptide Total Protein Albumin Urine Color Urine Appearance Urine pH Ur Specific [place] Urine Protein Urine Glucose (UA) Urine Ketones Urine Blood Urine Nitrite Ur Leukocyte Esterase Urine RBC Urine WBC Ur Squamous Epith Cells Urine Bacteria Hyaline Casts COVID-19 (YURIY) Negative COVID-19 Clin Com See Note Influenza Type A (DICKSON) Influenza Type B (DICKSON) Influenza A & B Note 12/29/22 12/29/22 12/29/22 17:10 17:23 17:54 WBC RBC Hgb Hct MCV MCH MCHC RDW Plt Count MPV Immature Gran % (Auto) Neut % (Auto) Lymph % (Auto) [place] % (Auto) Eos % (Auto) Baso % (Auto) Lymph # (Auto) [place] # (Auto) Eos # (Auto) Baso # (Auto) Abs Immat Gran (auto) Absolute Neuts (auto) Absolute Nucleated RBC Nucleated RBC % (auto) VBG pH VBG pCO2 VBG pO2 VBG HCO3 VBG O2 Saturation VBG Base Excess Sodium 131 L Potassium 3.2 L Chloride 92 L Carbon Dioxide 27 Anion Gap 15 BUN 27 H Creatinine 1.50 H Estim Creat Clear Calc 40.0 Estimated GFR 45 POC Glucose 160 H Random Glucose 145 H Lactic Acid Calcium 8.5 Magnesium Total Bilirubin AST ALT Alkaline Phosphatase Troponin I High Sens B-Natriuretic Peptide Total Protein Albumin Urine Color Yellow Urine Appearance Clear Urine pH 5.5 Ur Specific [place] 1.020 Urine Protein 100 (2+) H Urine Glucose (UA) Negative Urine Ketones Negative Urine Blood Negative Urine Nitrite Negative Ur Leukocyte Esterase Negative Urine RBC 0-2 Urine WBC 0-5 Ur Squamous Epith Cells 3-5 Urine Bacteria None Seen Hyaline Casts 6-10 COVID-19 (YURIY) COVID-19 Clin Com Influenza Type A (DICKSON) Influenza Type B (DICKSON) Influenza A & B Note 12/29/22 12/30/22 12/30/22 21:20 03:15 05:37 WBC RBC Hgb Hct MCV MCH MCHC RDW Plt Count MPV Immature Gran % (Auto) Neut % (Auto) Lymph % (Auto) [place] % (Auto) Eos % (Auto) Baso % (Auto) Lymph # (Auto) [place] # (Auto) Eos # (Auto) Baso # (Auto) Abs Immat Gran (auto) Absolute Neuts (auto) Absolute Nucleated RBC Nucleated RBC % (auto) VBG pH VBG pCO2 VBG pO2 VBG HCO3 VBG O2 Saturation VBG Base Excess Sodium 133 L Potassium 3.6 Chloride 92 L Carbon Dioxide 30 H Anion Gap 15 BUN 28 H Creatinine 1.50 H Estim Creat Clear Calc 40.0 Estimated GFR 45 POC Glucose 182 H 166 H Random Glucose 156 H Lactic Acid Calcium 8.8 Magnesium Total Bilirubin 1.1 H AST 23 ALT 14 Alkaline Phosphatase 78 Troponin I High Sens B-Natriuretic Peptide Total Protein 6.1 L Albumin 3.6 Urine Color Urine Appearance Urine pH Ur Specific [place] Urine Protein Urine Glucose (UA) Urine Ketones Urine Blood Urine Nitrite Ur Leukocyte Esterase Urine RBC Urine WBC Ur Squamous Epith Cells Urine Bacteria Hyaline Casts COVID-19 (YURIY) COVID-19 Clin Com Influenza Type A (DICKSON) Influenza Type B (DICKSON) Influenza A & B Note 12/30/22 05:37 WBC RBC Hgb Hct MCV MCH MCHC RDW Plt Count MPV Immature Gran % (Auto) Neut % (Auto) Lymph % (Auto) [place] % (Auto) Eos % (Auto) Baso % (Auto) Lymph # (Auto) [place] # (Auto) Eos # (Auto) Baso # (Auto) Abs Immat Gran (auto) Absolute Neuts (auto) Absolute Nucleated RBC Nucleated RBC % (auto) VBG pH VBG pCO2 VBG pO2 VBG HCO3 VBG O2 Saturation VBG Base Excess Sodium Potassium Chloride Carbon Dioxide Anion Gap BUN Creatinine Estim Creat Clear Calc Estimated GFR POC Glucose Random Glucose Lactic Acid Calcium Magnesium Total Bilirubin AST ALT Alkaline Phosphatase Troponin I High Sens B-Natriuretic Peptide 155 H Total Protein Albumin Urine Color Urine Appearance Urine pH Ur Specific [place] Urine Protein Urine Glucose (UA) Urine Ketones Urine Blood Urine Nitrite Ur Leukocyte Esterase Urine RBC Urine WBC Ur Squamous Epith Cells Urine Bacteria Hyaline Casts COVID-19 (YURIY) COVID-19 Clin Com Influenza Type A (DICKSON) Influenza Type B (DICKSON) Influenza A & B Note ECG Interpretation: EKG shows underlying sinus rhythm at 94/Min; nonspecific ST-T changes. Normal [place] and corrected QT. Imaging Radiologist's impression: Impressions Chest CT 12/29/22 15:20 IMPRESSION: Bilateral multilobar areas of increased groundglass attenuation, nodular opacities and denser airspace disease with air bronchograms. This probably represents pneumonia. Diffuse upper normal-size mediastinal lymph nodes. Small right pleural effusion. Slightly enlarged pulmonary arteries and ascending thoracic aorta. Severe coronary artery calcification. Probable splenic infarct. Fleischner guidelines were followed. Assessment and Plan (1) Acute on chronic diastolic (congestive) heart failure: Status: Acute (2) PAF (paroxysmal atrial fibrillation): Status: Acute (3) Pneumonia: Status: Acute Plan Pertinent data reviewed. Cardiac BNP 441. In October, it was only 82. Prior to that, it has been up and down at different times. Overall, slightly above range but not too much. Chest CT scan consistent with pneumonia. Small right pleural effusion. Slightly enlarged pulmonary arteries and descending thoracic aorta. Severe coronary artery calcification. Probable splenic infarct. Overall, he is already on antibiotics. Agree with IV diuretics, but don't think CHF is the main issue. Hence, need not be too aggressive as he already has renal insufficiency. With regard to atrial fibrillation history, he is on anticoagulation. Also on beta-blockers. Coronary disease as mentioned in the CT scan but he does not have any symptoms at this time. Stress perfusion imaging last year showed normal perfusion. Will follow-up with you. Discussed with hospitalist. Time Spent With Patient Time: Total time managing care of this patient today ____ minutes. Procedures Date of Service Date of Service: 12/30/22
[2022-12-30] MEDS: cefTRIAXone sodium 1 GM in 0.9 % Sodium Chloride 50 ML IV (10:45)
[2022-12-30 11:21] VITALS: BP 140/73; PULSE 80; RESP 20; TEMP 36.4; O2SAT 96
--- NOTE | 2022-12-30 14:26 | P.PNIM_ITS ---
Subjective Subjective Date of Service: 12/30/22 Interval History: No acute issues. Resting quietly in bed. States feels better than when he got in here Review of Systems Denies chest pain Denies shortness of breath Denies nausea vomiting diarrhea Denies fever chills Physical Exam Vital Signs: Vital Signs: Last Vital Signs Temp 97.6 F 12/30/22 11:21 Pulse 80 12/30/22 11:21 Resp 20 12/30/22 11:21 BP 140/73 H 12/30/22 11:21 Pulse Ox 96 12/30/22 11:21 O2 Del Method Nasal Cannula 12/30/22 11:21 O2 Flow Rate 96 12/30/22 11:21 Oxygen Flow Rate 5 12/29/22 11:23 BMI result Body Mass Index 31.4 Const: Other: Awake alert lying comfortably in bed. Able speak in full sentences Resp: Other: Diminished at bases; diffuse expiratory wheezes noted Cardio: Other: No S4; positive S1-S2; no S3 murmurs rubs or gallops Extrem: Other: No edema bilateral Objective Data Active Medications Acetaminophen (Acetaminophen 325 Mg Tablet) 650 mg PO Q6H PRN PRN Reason: Pain, Mild (Pain Scale 1-3) Last Admin: 12/30/22 00:50 Dose: 650 mg Documented By: CHRISTIAN Albuterol Sulfate (Albuterol Sulfate (0.083%) 2.5 Mg/3 Ml Vial.Neb) 2.5 mg INHALE RQ4H PRN PRN Reason: Wheezing Apixaban (Apixaban 5 Mg Tablet) 5 mg PO BID [facility] Last Admin: 12/30/22 07:56 Dose: 5 mg Documented By: DAVID Atorvastatin Calcium (Atorvastatin Calcium 40 Mg Tablet) 40 mg PO DAILY [facility] Last Admin: 12/30/22 07:57 Dose: 40 mg Documented By: DAVID Benzonatate (Benzonatate 100 Mg Capsule) 100 mg PO TID PRN PRN Reason: Cough Furosemide (Furosemide 20 Mg/2 Ml Vial) 20 mg IVPUSH BID@0900,1800 [facility]; Protocol Last Admin: 12/30/22 07:56 Dose: 20 mg Documented By: DAVID Ceftriaxone Sodium 1 gm/ (Sodium Chloride) 50 mls @ 100 mls/hr IV Q24H [facility] Last Infusion: 12/30/22 11:28 Dose: 0 mls/hr Documented By: DAVID Doxycycline Hyclate 100 mg/ (Sodium Chloride) 250 mls @ 166.67 mls/hr IV Q12H [facility] Last Infusion: 12/30/22 07:41 Dose: 0 mls/hr Documented By: DAVID Levothyroxine Sodium (Levothyroxine Sodium 75 Mcg Tablet) 75 mcg PO DAILY@0600 [facility] Last Admin: 12/30/22 05:51 Dose: 75 mcg Documented By: KIRILL-RENEZESharita Metoprolol Succinate (Metoprolol Succinate Er 100 Mg Tab.Er.24h) 100 mg PO DAILY [facility]; Protocol Last Admin: 12/30/22 07:57 Dose: 100 mg Documented By: DAVID Ondansetron HCl (Ondansetron Hcl 4 Mg/2 Ml Vial) 4 mg IVPUSH Q8H PRN PRN Reason: Nausea and Vomiting Pharmacy Consult (Consult Rx Perform Med Rec) 1 each MISCELLANE ONCE PRN PRN Reason: Consult order Sodium Chloride (0.9 % Sodium Chloride Flush 3 Ml Syringe) 3 ml IVFLUSH QSHIFT [facility] Last Admin: 12/30/22 07:57 Dose: 3 ml Documented By: DAVID Vitamin D (Cholecalciferol (Vitamin D3) 25 Mcg Tablet) 25 mcg PO DAILY [facility] Last Admin: 12/30/22 07:57 Dose: 25 mcg Documented By: DAVID Labs 12/29/22 12:04 12/30/22 05:37 Labs: Laboratory Results - last 24 hr 12/29/22 12/29/22 12/29/22 17:10 17:23 17:54 Anion Gap 15 Estim Creat Clear Calc 40.0 Estimated GFR 45 POC Glucose 160 H Random Glucose 145 H Calcium 8.5 Total Bilirubin AST ALT Alkaline Phosphatase B-Natriuretic Peptide Total Protein Albumin Urine Color Yellow Urine Appearance Clear Urine pH 5.5 Ur Specific [place] 1.020 Urine Protein 100 (2+) H Urine Glucose (UA) Negative Urine Ketones Negative Urine Blood Negative Urine Nitrite Negative Ur Leukocyte Esterase Negative Urine RBC 0-2 Urine WBC 0-5 Ur Squamous Epith Cells 3-5 Urine Bacteria None Seen Hyaline Casts 6-10 12/29/22 12/30/22 12/30/22 21:20 03:15 05:37 Anion Gap 15 Estim Creat Clear Calc 40.0 Estimated GFR 45 POC Glucose 182 H 166 H Random Glucose 156 H Calcium 8.8 Total Bilirubin 1.1 H AST 23 ALT 14 Alkaline Phosphatase 78 B-Natriuretic Peptide Total Protein 6.1 L Albumin 3.6 Urine Color Urine Appearance Urine pH Ur Specific [place] Urine Protein Urine Glucose (UA) Urine Ketones Urine Blood Urine Nitrite Ur Leukocyte Esterase Urine RBC Urine WBC Ur Squamous Epith Cells Urine Bacteria Hyaline Casts 12/30/22 05:37 Anion Gap Estim Creat Clear Calc Estimated GFR POC Glucose Random Glucose Calcium Total Bilirubin AST ALT Alkaline Phosphatase B-Natriuretic Peptide 155 H Total Protein Albumin Urine Color Urine Appearance Urine pH Ur Specific [place] Urine Protein Urine Glucose (UA) Urine Ketones Urine Blood Urine Nitrite Ur Leukocyte Esterase Urine RBC Urine WBC Ur Squamous Epith Cells Urine Bacteria Hyaline Casts Microbiology Microbiology Results: Microbiology 12/29/22 12:03 Blood Culture - Preliminary Blood - Venous No growth after 24 hours. 12/29/22 12:03 Blood Culture - Preliminary Blood - Venous No growth after 24 hours. Assessment and Plan (1) Pneumonia: Status: Acute (2) (HFpEF) heart failure with preserved ejection fraction: Status: Acute (3) Atrial fibrillation with RVR: Status: Acute (4) Type 2 diabetes mellitus with hyperglycemia: Status: Acute (5) CKD (chronic kidney disease) stage 3, GFR 30-59 ml/min: Status: Acute Plan 77-year-old man admitted with community-acquired pneumonia and CHF ; slowly improve 1.Community-acquired pneumonia -Rocephin/doxycycline (2) -titrate O2 to maintain sats greater than equal to 92% -start pulse dose steroids.. Oral taper upon DC -DuoNebs q.4 hours while awake 2.Acute on chronic HFpEF -not a major contributor to hospitalization -given CKD will decrease diuresis -adjust as clinically appropriate 3.Atrial fibrillation with rapid ventricular response -acceptable control on current therapies -apixaban/metoprolol -adjust as indicated 4.Diabetes mellitus II -lispro correctional scale -adjust as indicated (expect rise given addition of steroids) 5CKD III -at baseline -follow renals/divalents with decrease in Lasix Eliquis Full code Requires ongoing hospitalization for IV antibiotics to treat community-acquired pneumonia Time Spent With Patient Time: Total time managing care of this patient today ____ minutes. Quality Stroke Does the patient have a stroke diagnosis?: No VTE Prior VTE?: No VTE Risk Level:: Medical - moderate - high VTE Device Contraindication: Treatment Not Indicated VTE Drug Contraindication: N/A - Med Ordered
[2022-12-30] MEDS: methylPREDNISolone Sod Succ 125 MG/2 ML VIAL IVPUSH (15:13)
[2022-12-30 15:21] VITALS: BP 150/60; PULSE 81; RESP 20; TEMP 36.8; O2SAT 94
[2022-12-30 19:28] VITALS: BP 146/70; PULSE 78; RESP 20; TEMP 36.3; O2SAT 98
[2022-12-30] MEDS: methylPREDNISolone Sod Succ 125 MG/2 ML VIAL 60 MG IVPUSH (20:41)
[2022-12-30 23:42] VITALS: BP 156/77; PULSE 70; RESP 20; TEMP 36.4; O2SAT 9
[2022-12-31 04:00] VITALS: BP 154/78; PULSE 68; RESP 16; TEMP 36.5; O2SAT 99
[2022-12-31] MEDS: Doxycycline Hyclate 100 MG in 0.9 % Sodium Chloride 250 ML 166.67 MG IV ×2 (04:36→17:00)
[2022-12-31] MEDS: methylPREDNISolone Sod Succ 125 MG/2 ML VIAL 60 MG IVPUSH ×4 (04:38→20:30)
[2022-12-31] MEDS: Levothyroxine Sodium 75 MCG TABLET PO (05:10)
[2022-12-31 05:50] VITALS: BMI 31.3
[2022-12-31 06:02] LABS: MANUAL DIFF FLAG NO
[2022-12-31 06:08] LABS: Basophils Percent Auto 0.2 % (0-2); Hematocrit 32.8 % (42.0-52.0); Hemoglobin 11.1 g/dl (14.0-18.0); Imm Gran Abs Auto 0.05 X10*3/uL (0.00-0.03); Imm Gran Pct Auto 1.2 % (0.0-0.4); Lymphocytes Absolute Auto 0.7 X10*3/uL (1.2-4.9); Lymphocytes Percent Auto 16.9 % (20-40); Mean Corpuscular HGB Conc 33.8 g/dl (31.0-36.0); Mean Corpuscular Hemoglobin 25.8 pg (27.0-33.0); Mean Corpuscular Volume 76.3 fL (80.0-98.0); Mean Platelet Volume 9.9 fL (9.4-12.4); Monocytes Absolute Auto 0.1 X10*3/uL (0.1-1.2); Monocytes Percent Auto 3.2 % (2-11); Neutrophils Absolute Auto 3.4 x10*3/uL (2.0-8.3); Neutrophils Percent Auto 78.5 % (45-73); Platelet Count 177 X10*3/uL (160-400); Red Cell Distribution Width 14.5 % (11.0-16.0); White Blood Count 4.3 X10*3/uL (4.8-10.8)
[2022-12-31 06:31] LABS: Alanine Aminotransferase 19 U/L (0-40); Albumin Level 3.5 g/dL (3.5-5.0); Alkaline Phosphatase 84 U/L (39-117); Anion Gap 15 (12-20); Aspartate Amino Transferase 24 U/L (5-37); Bilirubin Total 0.9 mg/dL (0.0-1.0); Blood Urea Nitrogen 36 mg/dL (9-16); Calcium 8.3 mg/dL (8.4-10.2); Carbon Dioxide 29 mmol/L (22-29); Chloride 92 mmol/L (96-108); Creatinine Clr Calc Pharmacy 40.9; Estimated Glomerular Filt Rate 46; Glucose Fasting 276 mg/dL (60-99); Potassium 3.3 mmol/L (3.3-5.1); Sodium 133 mmol/L (135-145); Total Protein 6.1 g/dL (6.5-8.0)
[2022-12-31 07:18] VITALS: BP 149/73; PULSE 70; RESP 20; TEMP 36.1; O2SAT 99
[2022-12-31] MEDS: Apixaban 5 MG TABLET PO ×2 (09:20→20:30)
[2022-12-31] MEDS: Cholecalciferol (Vitamin D3) 25 MCG TABLET PO (09:20)
[2022-12-31] MEDS: 0.9 % Sodium Chloride Flush 3 ML SYRINGE IVFLUSH ×3 (09:20→20:33)
[2022-12-31] MEDS: Metoprolol Succinate ER 100 MG TAB.ER.24H PO (09:20)
[2022-12-31] MEDS: Atorvastatin Calcium 40 MG TABLET PO (09:20)
[2022-12-31 11:09] VITALS: BP 148/66; PULSE 70; RESP 20; TEMP 36.1; O2SAT 100
[2022-12-31] MEDS: cefTRIAXone sodium 1 GM in 0.9 % Sodium Chloride 50 ML IV (11:23)
--- NOTE | 2022-12-31 14:32 | P.PNIM_ITS ---
Subjective Subjective Date of Service: 12/31/22 Interval History: Subjectively notes improvement. Feels better today Review of Systems Denies chest pain Denies shortness of breath Denies nausea vomiting diarrhea Denies fever chills Physical Exam Vital Signs: Vital Signs: Last Vital Signs Temp 97.0 F 12/31/22 11:09 Pulse 70 12/31/22 11:09 Resp 20 12/31/22 11:09 BP 148/66 H 12/31/22 11:09 Pulse Ox 100 12/31/22 11:09 O2 Del Method Nasal Cannula 12/31/22 11:09 O2 Flow Rate 7 12/31/22 11:09 Oxygen Flow Rate 5 12/29/22 11:23 BMI result Body Mass Index 31.3 Const: Other: Awake alert lying comfortably in bed. Able speak in full sentences Resp: Other: Improved aeration to bases. Minimal scattered expiratory wheezes Cardio: Other: No S4; positive S1-S2; no S3 murmurs rubs or gallops Extrem: Other: No edema bilateral Objective Data Active Medications Acetaminophen (Acetaminophen 325 Mg Tablet) 650 mg PO Q6H PRN PRN Reason: Pain, Mild (Pain Scale 1-3) Last Admin: 12/30/22 00:50 Dose: 650 mg Documented By: CHRISTIAN Albuterol Sulfate (Albuterol Sulfate (0.083%) 2.5 Mg/3 Ml Vial.Neb) 2.5 mg INHALE RQ4H PRN PRN Reason: Wheezing Apixaban (Apixaban 5 Mg Tablet) 5 mg PO BID [facility] Last Admin: 12/31/22 09:20 Dose: 5 mg Documented By: THIERRY Atorvastatin Calcium (Atorvastatin Calcium 40 Mg Tablet) 40 mg PO DAILY [facility] Last Admin: 12/31/22 09:20 Dose: 40 mg Documented By: THIERRY Benzonatate (Benzonatate 100 Mg Capsule) 100 mg PO TID PRN PRN Reason: Cough Ceftriaxone Sodium 1 gm/ (Sodium Chloride) 50 mls @ 100 mls/hr IV Q24H [facility] Last Infusion: 12/31/22 12:52 Dose: 0 mls/hr Documented By: THIERRY Doxycycline Hyclate 100 mg/ (Sodium Chloride) 250 mls @ 166.67 mls/hr IV Q12H [facility] Last Infusion: 05/25/23 09:18 Dose: 0 mls/hr Documented By: THIERRY Levothyroxine Sodium (Levothyroxine Sodium 75 Mcg Tablet) 75 mcg PO DAILY@0600 [facility] Last Admin: 12/31/22 05:10 Dose: 75 mcg Documented By: DAVID Methylprednisolone Sodium Succinate (Methylprednisolone Sod Succ 125 Mg/2 Ml Vial) 60 mg IVPUSH Q6H [facility] Last Admin: 12/31/22 09:19 Dose: 60 mg Documented By: THIERRY Metoprolol Succinate (Metoprolol Succinate Er 100 Mg Tab.Er.24h) 100 mg PO DAILY [facility]; Protocol Last Admin: 12/31/22 09:20 Dose: 100 mg Documented By: THIERRY Ondansetron HCl (Ondansetron Hcl 4 Mg/2 Ml Vial) 4 mg IVPUSH Q8H PRN PRN Reason: Nausea and Vomiting Pharmacy Consult (Consult Rx Perform Med Rec) 1 each MISCELLANE ONCE PRN PRN Reason: Consult order Sodium Chloride (0.9 % Sodium Chloride Flush 3 Ml Syringe) 3 ml IVFLUSH QSHIFT [facility] Last Admin: 12/31/22 09:20 Dose: 3 ml Documented By: THIERRY Vitamin D (Cholecalciferol (Vitamin D3) 25 Mcg Tablet) 25 mcg PO DAILY [facility] Last Admin: 12/31/22 09:20 Dose: 25 mcg Documented By: THIERRY Labs 12/31/22 05:42 12/31/22 05:42 Labs: Laboratory Results - last 24 hr 12/31/22 12/31/22 05:42 05:42 MCV 76.3 L MCH 25.8 L MCHC 33.8 RDW 14.5 Plt Count 177 MPV 9.9 Immature Gran % (Auto) 1.2 H Neut % (Auto) 78.5 H Lymph % (Auto) 16.9 L [place] % (Auto) 3.2 Eos % (Auto) 0.0 Baso % (Auto) 0.2 Lymph # (Auto) 0.7 L [place] # (Auto) 0.1 Eos # (Auto) 0.0 Baso # (Auto) 0.0 Abs Immat Gran (auto) 0.05 H Absolute Neuts (auto) 3.4 Absolute Nucleated RBC 0.000 Nucleated RBC % (auto) 0.0 Anion Gap 15 Estim Creat Clear Calc 40.9 Estimated GFR 46 Fasting Glucose 276 H Calcium 8.3 L Total Bilirubin 0.9 AST 24 ALT 19 Alkaline Phosphatase 84 Total Protein 6.1 L Albumin 3.5 Microbiology Microbiology Results: Microbiology 12/29/22 12:03 Blood Culture - Preliminary Blood - Venous No growth after 48 hours. 12/29/22 12:03 Blood Culture - Preliminary Blood - Venous No growth after 48 hours. Assessment and Plan (1) Pneumonia: Status: Acute (2) (HFpEF) heart failure with preserved ejection fraction: Status: Acute (3) Atrial fibrillation with RVR: Status: Acute (4) Type 2 diabetes mellitus with hyperglycemia: Status: Acute (5) CKD (chronic kidney disease) stage 3, GFR 30-59 ml/min: Status: Acute Plan 77-year-old man admitted with community-acquired pneumonia and CHF ; slowly improve 1.Community-acquired pneumonia.. Improving -Rocephin/doxycycline (3) -titrate O2 to maintain sats greater than equal to 92% -start pulse dose steroids.. Oral taper upon DC -DuoNebs q.4 hours while awake 2.Acute on chronic HFpEF -not a major contributor to hospitalization -given CKD will DC diuresis -adjust as clinically appropriate 3.Atrial fibrillation with rapid ventricular response -acceptable control on current therapies -apixaban/metoprolol -adjust as indicated 4.Diabetes mellitus II -lispro correctional scale -adjust as indicated (expect rise given addition of steroids) 5CKD III -at baseline -follow renals/divalents with decrease in Lasix Eliquis Full code Requires ongoing hospitalization for IV antibiotics to treat community-acquired pneumonia Time Spent With Patient Time: Total time managing care of this patient today ____ minutes. Quality Stroke Does the patient have a stroke diagnosis?: No VTE Prior VTE?: No VTE Risk Level:: Medical - moderate - high VTE Device Contraindication: Treatment Not Indicated VTE Drug Contraindication: N/A - Med Ordered
[2022-12-31 15:32] VITALS: BP 137/64; PULSE 70; RESP 18; TEMP 36.3; O2SAT 97
[2022-12-31 19:43] VITALS: BP 151/68; PULSE 77; RESP 18; TEMP 36.5; O2SAT 97
[2022-12-31] MEDS: Benzonatate 100 MG CAPSULE PO (20:43)
[2022-12-31 23:23] VITALS: BP 140/66; PULSE 78; RESP 17; TEMP 36.6; O2SAT 98
[2023-01-01] VITALS (7 sets, daily range): BP systolic 141–169; BP diastolic 50–86; PULSE 68–72; RESP 14–20; TEMP 36.1–36.8; O2SAT 93–97
[2023-01-01] MEDS: Levothyroxine Sodium 75 MCG TABLET PO (05:01)
[2023-01-01] MEDS: Doxycycline Hyclate 100 MG in 0.9 % Sodium Chloride 250 ML 166.67 MG IV ×2 (05:01→17:12)
[2023-01-01] MEDS: methylPREDNISolone Sod Succ 125 MG/2 ML VIAL 60 MG IVPUSH ×4 (05:02→22:02)
[2023-01-01 05:52] LABS: MANUAL DIFF FLAG NO
[2023-01-01 06:00] LABS: Basophils Percent Auto 0.1 % (0-2); Hematocrit 32.9 % (42.0-52.0); Hemoglobin 11.3 g/dl (14.0-18.0); Imm Gran Abs Auto 0.11 X10*3/uL (0.00-0.03); Lymphocytes Percent Auto 9.2 % (20-40); Mean Corpuscular HGB Conc 34.3 g/dl (31.0-36.0); Mean Corpuscular Hemoglobin 26.2 pg (27.0-33.0); Mean Corpuscular Volume 76.2 fL (80.0-98.0); Mean Platelet Volume 10.2 fL (9.4-12.4); Monocytes Absolute Auto 0.5 X10*3/uL (0.1-1.2); Monocytes Percent Auto 4.8 % (2-11); Neutrophils Absolute Auto 9.1 x10*3/uL (2.0-8.3); Neutrophils Percent Auto 84.9 % (45-73); Platelet Count 251 X10*3/uL (160-400); Red Blood Count 4.32 X10*6/uL (4.60-5.80); Red Cell Distribution Width 14.2 % (11.0-16.0); White Blood Count 10.7 X10*3/uL (4.8-10.8)
[2023-01-01 06:44] LABS: Alanine Aminotransferase 25 U/L (0-40); Albumin Level 3.5 g/dL (3.5-5.0); Alkaline Phosphatase 83 U/L (39-117); Anion Gap 17 (12-20); Aspartate Amino Transferase 27 U/L (5-37); Bilirubin Total 0.7 mg/dL (0.0-1.0); Blood Urea Nitrogen 50 mg/dL (9-16); Calcium 8.6 mg/dL (8.4-10.2); Carbon Dioxide 25 mmol/L (22-29); Chloride 93 mmol/L (96-108); Estimated Glomerular Filt Rate 43; Glucose Fasting 420 mg/dL (60-99); Potassium 3.4 mmol/L (3.3-5.1); Sodium 132 mmol/L (135-145); Total Protein 6.2 g/dL (6.5-8.0)
[2023-01-01 07:35] LABS: Glucose, Whole Blood 389 mg/dL (60-115)
[2023-01-01] MEDS: Insulin Lispro 100 UNIT/ML 3 ML VIAL 15 UNIT SUBCUT (08:09)
[2023-01-01] MEDS: Atorvastatin Calcium 40 MG TABLET PO (08:09)
[2023-01-01] MEDS: 0.9 % Sodium Chloride Flush 3 ML SYRINGE IVFLUSH ×3 (08:09→22:24)
[2023-01-01] MEDS: Apixaban 5 MG TABLET PO ×2 (08:10→22:00)
[2023-01-01] MEDS: Cholecalciferol (Vitamin D3) 25 MCG TABLET PO (08:10)
[2023-01-01] MEDS: Metoprolol Succinate ER 100 MG TAB.ER.24H PO (08:10)
--- NOTE | 2023-01-01 10:17 | MHC.CM.PN ---
Per ROUNDS discussion, Patient is not yet medically cleared for dc (weaning O2); PT is recommending home with new VNA and CM will follow.
[2023-01-01] MEDS: cefTRIAXone sodium 1 GM in 0.9 % Sodium Chloride 50 ML IV (11:19)
[2023-01-01 11:24] LABS: Glucose, Whole Blood 316 mg/dL (60-115)
[2023-01-01] MEDS: Insulin Lispro 100 UNIT/ML 3 ML VIAL SUBCUT ×3 (11:37→22:00)
--- NOTE | 2023-01-01 14:36 | P.PNIM_ITS ---
Subjective Subjective Date of Service: 01/01/23 Interval History: Continues to improve. Review of Systems Denies chest pain Denies shortness of breath Denies nausea vomiting diarrhea Denies fever chills Physical Exam Vital Signs: Vital Signs: Last Vital Signs Temp 97.0 F 01/01/23 11:04 Pulse 71 01/01/23 13:41 Resp 20 01/01/23 11:04 BP 153/71 H 01/01/23 13:41 Pulse Ox 97 01/01/23 13:41 O2 Del Method Room Air 01/01/23 11:04 O2 Flow Rate 3 01/01/23 07:32 Oxygen Flow Rate 5 12/29/22 11:23 BMI result Body Mass Index 31.3 Const: Other: Awake alert lying comfortably in bed. Able speak in full sentences Resp: Other: Improved aeration to bases. Minimal scattered expiratory wheezes Cardio: Other: No S4; positive S1-S2; no S3 murmurs rubs or gallops Extrem: Other: No edema bilateral Objective Data Active Medications Acetaminophen (Acetaminophen 325 Mg Tablet) 650 mg PO Q6H PRN PRN Reason: Pain, Mild (Pain Scale 1-3) Last Admin: 12/30/22 00:50 Dose: 650 mg Documented By: CHRISTIAN Albuterol Sulfate (Albuterol Sulfate (0.083%) 2.5 Mg/3 Ml Vial.Neb) 2.5 mg INHALE RQ4H PRN PRN Reason: Wheezing Apixaban (Apixaban 5 Mg Tablet) 5 mg PO BID [facility] Last Admin: 01/01/23 08:10 Dose: 5 mg Documented By: THIERRY Atorvastatin Calcium (Atorvastatin Calcium 40 Mg Tablet) 40 mg PO DAILY [facility] Last Admin: 01/01/23 08:09 Dose: 40 mg Documented By: THIERRY Benzonatate (Benzonatate 100 Mg Capsule) 100 mg PO TID PRN PRN Reason: Cough Last Admin: 12/31/22 20:43 Dose: 100 mg Documented By: VALDEMAR Glucose (Glucose Gel 15 Gm Gel..Gram.) 15 gm PO Q15M PRN; Protocol PRN Reason: per Hypoglycemia Standing Ord. Ceftriaxone Sodium 1 gm/ (Sodium Chloride) 50 mls @ 100 mls/hr IV Q24H [facility] Last Infusion: 01/01/23 12:30 Dose: 0 mls/hr Documented By: THIERRY Doxycycline Hyclate 100 mg/ (Sodium Chloride) 250 mls @ 166.67 mls/hr IV Q12H [facility] Last Infusion: 01/01/23 06:43 Dose: 0 mls/hr Documented By: VALDEMAR Dextrose (D10) 250 mls @ 750 mls/hr IV Q15M PRN; Protocol PRN Reason: per Hypoglycemia Standing Ord. Insulin Human Lispro (Insulin Lispro 100 Unit/Ml 3 Ml Vial) 0 unit SUBCUT QIDACHS [facility]; Protocol Last Admin: 01/01/23 11:37 Dose: 8 unit Documented By: THIERRY Levothyroxine Sodium (Levothyroxine Sodium 75 Mcg Tablet) 75 mcg PO DAILY@0600 [facility] Last Admin: 01/01/23 05:01 Dose: 75 mcg Documented By: VALDEMAR Methylprednisolone Sodium Succinate (Methylprednisolone Sod Succ 125 Mg/2 Ml Vial) 60 mg IVPUSH Q6H [facility] Last Admin: 01/01/23 08:10 Dose: 60 mg Documented By: THIERRY Metoprolol Succinate (Metoprolol Succinate Er 100 Mg Tab.Er.24h) 100 mg PO DAILY [facility]; Protocol Last Admin: 01/01/23 08:10 Dose: 100 mg Documented By: THIERRY Ondansetron HCl (Ondansetron Hcl 4 Mg/2 Ml Vial) 4 mg IVPUSH Q8H PRN PRN Reason: Nausea and Vomiting Pharmacy Consult (Consult Rx Perform Med Rec) 1 each MISCELLANE ONCE PRN PRN Reason: Consult order Sodium Chloride (0.9 % Sodium Chloride Flush 3 Ml Syringe) 3 ml IVFLUSH QSHIFT [facility] Last Admin: 01/01/23 08:09 Dose: 3 ml Documented By: THIERRY Vitamin D (Cholecalciferol (Vitamin D3) 25 Mcg Tablet) 25 mcg PO DAILY [facility] Last Admin: 01/01/23 08:10 Dose: 25 mcg Documented By: THIERRY Labs 01/01/23 05:32 01/01/23 05:32 Labs: Laboratory Results - last 24 hr 01/01/23 01/01/23 01/01/23 05:32 05:32 07:31 MCV 76.2 L MCH 26.2 L MCHC 34.3 RDW 14.2 Plt Count 251 D MPV 10.2 Immature Gran % (Auto) 1.0 H Neut % (Auto) 84.9 H Lymph % (Auto) 9.2 L [place] % (Auto) 4.8 Eos % (Auto) 0.0 Baso % (Auto) 0.1 Lymph # (Auto) 1.0 L [place] # (Auto) 0.5 Eos # (Auto) 0.0 Baso # (Auto) 0.0 Abs Immat Gran (auto) 0.11 H Absolute Neuts (auto) 9.1 H Absolute Nucleated RBC 0.000 Nucleated RBC % (auto) 0.0 Anion Gap 17 Estim Creat Clear Calc 38.0 Estimated GFR 43 POC Glucose 389 H* Fasting Glucose 420 H* Calcium 8.6 Total Bilirubin 0.7 AST 27 ALT 25 Alkaline Phosphatase 83 Total Protein 6.2 L Albumin 3.5 01/01/23 11:06 MCV MCH MCHC RDW Plt Count MPV Immature Gran % (Auto) Neut % (Auto) Lymph % (Auto) [place] % (Auto) Eos % (Auto) Baso % (Auto) Lymph # (Auto) [place] # (Auto) Eos # (Auto) Baso # (Auto) Abs Immat Gran (auto) Absolute Neuts (auto) Absolute Nucleated RBC Nucleated RBC % (auto) Anion Gap Estim Creat Clear Calc Estimated GFR POC Glucose 316 H Fasting Glucose Calcium Total Bilirubin AST ALT Alkaline Phosphatase Total Protein Albumin Microbiology Microbiology Results: Microbiology 12/29/22 12:03 Blood Culture - Preliminary Blood - Venous No growth after 48 hours. 12/29/22 12:03 Blood Culture - Preliminary Blood - Venous No growth after 48 hours. Assessment and Plan (1) Pneumonia: Status: Acute (2) Acute on chronic diastolic (congestive) heart failure: Status: Acute (3) Atrial fibrillation with RVR: Status: Acute (4) Type 2 diabetes mellitus with hyperglycemia: Status: Acute (5) Persistent atrial fibrillation: Status: Acute Plan 77-year-old man admitted with community-acquired pneumonia and CHF ; slowly improve 1.Community-acquired pneumonia.. Improving -Rocephin/doxycycline (4) -room air sats 97% -start pulse dose steroids.. Oral taper upon DC -DuoNebs q.4 hours while awake 2.Acute on chronic HFpEF -not a major contributor to hospitalization -given CKD will DC diuresis -adjust as clinically appropriate 3.Atrial fibrillation with rapid ventricular response -acceptable control on current therapies -apixaban/metoprolol -adjust as indicated 4.Diabetes mellitus II -lispro correctional scale -adjust as indicated (expect rise given addition of steroids) 5CKD III -at baseline -follow renals/divalents with decrease in Lasix Eliquis Full code Requires ongoing hospitalization for IV antibiotics to treat community-acquired pneumonia Time Spent With Patient Time: Total time managing care of this patient today ____ minutes. Quality Stroke Does the patient have a stroke diagnosis?: No VTE Prior VTE?: No VTE Risk Level:: Medical - moderate - high VTE Device Contraindication: Treatment Not Indicated VTE Drug Contraindication: N/A - Med Ordered
[2023-01-01 16:03] LABS: Glucose, Whole Blood 290 mg/dL (60-115)
[2023-01-01 20:38] LABS: Glucose, Whole Blood 335 mg/dL (60-115)
[2023-01-02 03:55] VITALS: BP 152/85; PULSE 71; RESP 20; TEMP 36.8; O2SAT 93
[2023-01-02] MEDS: methylPREDNISolone Sod Succ 125 MG/2 ML VIAL 60 MG IVPUSH ×2 (04:10→08:47)
[2023-01-02] MEDS: Doxycycline Hyclate 100 MG in 0.9 % Sodium Chloride 250 ML 166.67 MG IV (05:52)
[2023-01-02] MEDS: Levothyroxine Sodium 75 MCG TABLET PO (05:53)
[2023-01-02 06:00] VITALS: BMI 31.7
[2023-01-02 06:48] LABS: MANUAL DIFF FLAG NO
[2023-01-02 06:51] LABS: Basophils Percent Auto 0.2 % (0-2); Hematocrit 31.9 % (42.0-52.0); Imm Gran Abs Auto 0.21 X10*3/uL (0.00-0.03); Imm Gran Pct Auto 1.8 % (0.0-0.4); Lymphocytes Absolute Auto 0.9 X10*3/uL (1.2-4.9); Lymphocytes Percent Auto 7.9 % (20-40); Mean Corpuscular HGB Conc 34.5 g/dl (31.0-36.0); Mean Corpuscular Hemoglobin 26.3 pg (27.0-33.0); Mean Corpuscular Volume 76.1 fL (80.0-98.0); Mean Platelet Volume 9.5 fL (9.4-12.4); Monocytes Absolute Auto 0.4 X10*3/uL (0.1-1.2); Monocytes Percent Auto 2.9 % (2-11); Neutrophils Absolute Auto 10.4 x10*3/uL (2.0-8.3); Neutrophils Percent Auto 87.2 % (45-73); Platelet Count 279 X10*3/uL (160-400); Red Blood Count 4.19 X10*6/uL (4.60-5.80); Red Cell Distribution Width 14.6 % (11.0-16.0); White Blood Count 11.9 X10*3/uL (4.8-10.8)
[2023-01-02 07:15] LABS: Alanine Aminotransferase 26 U/L (0-40); Albumin Level 3.4 g/dL (3.5-5.0); Alkaline Phosphatase 78 U/L (39-117); Anion Gap 13 (12-20); Aspartate Amino Transferase 24 U/L (5-37); Blood Urea Nitrogen 47 mg/dL (9-16); Calcium 9.1 mg/dL (8.4-10.2); Carbon Dioxide 31 mmol/L (22-29); Chloride 98 mmol/L (96-108); Creatinine Clr Calc Pharmacy 43.5; Estimated Glomerular Filt Rate 49; Glucose Fasting 321 mg/dL (60-99); Sodium 138 mmol/L (135-145)
[2023-01-02 07:18] VITALS: BP 147/81; PULSE 67; RESP 20; TEMP 36.6; O2SAT 99
[2023-01-02 08:05] LABS: Glucose, Whole Blood 316 mg/dL (60-115)
[2023-01-02] MEDS: Insulin Lispro 100 UNIT/ML 3 ML VIAL SUBCUT ×2 (08:43→11:54)
[2023-01-02] MEDS: Atorvastatin Calcium 40 MG TABLET PO (08:44)
[2023-01-02] MEDS: 0.9 % Sodium Chloride Flush 3 ML SYRINGE IVFLUSH (08:44)
[2023-01-02] MEDS: Apixaban 5 MG TABLET PO (08:44)
[2023-01-02] MEDS: Metoprolol Succinate ER 100 MG TAB.ER.24H PO (08:44)
[2023-01-02] MEDS: Cholecalciferol (Vitamin D3) 25 MCG TABLET PO (08:44)
[2023-01-02 11:10] VITALS: BP 151/78; PULSE 68; RESP 20; TEMP 36.6; O2SAT 96
[2023-01-02 11:35] LABS: Glucose, Whole Blood 358 mg/dL (60-115)
[2023-01-02 12:47] VITALS: PULSE 74; PULSE 81; O2SAT 90; O2SAT 95
--- NOTE | 2023-01-02 12:54 | P.DS_ITS ---
DS: Providers Provider Date of Service: 01/02/23 Date of admission: 12/29/22 16:58 Date of discharge: 01/02/23 Primary care physician: Carmen Peters MD Consults: 12/29/22 17:06 Consult to Cardiology Routine Consulting Provider: [facility] [place] Cardiovascular Services Reason for consultation: chf Has provider been notified: Yes DS: Diagnosis Discharge Diagnosis (1) Pneumonia: Status: Acute (2) Acute on chronic diastolic (congestive) heart failure: Status: Acute (3) Atrial fibrillation with RVR: Status: Acute (4) Type 2 diabetes mellitus with hyperglycemia: Status: Acute (5) Persistent atrial fibrillation: Status: Acute DS: Summary Hospital Course Hospital Course: 77-year-old man presenting to the ER with complaints of worsening shortness breath, cough, nausea with dry heaves, fever and general fatigue over the last 3 days.? He reported cough with brown phlegm and a fever of 101.? He reported that he had been using cough suppressants but they were not working.? He reported feeling weaker and weaker over the last couple a days and barely able to get out of bed today.? He also reported chest pressure that would come and go with no radiation or other associated symptoms located substernally only with coughing. He did call his primary care provider and reported to them symptoms of flu.? He was prescribed Tamiflu but due to his worsening symptoms he was told by his primary provider to come to the ER for further evaluation.? Patient denied any recent travel though he reported that his had recently went on a cruise.? He denied sick contacts, vomiting, diarrhea, recent illness.? In the ER, chest CT found bilateral multilobar areas of increased black ground-glass attenuation with air bronchograms and small right pleural effusion with severe coronary artery calcification and probable splenic infarct.? He was noted to be in atrial fibrillation with heart rate in the 100s, sodium 129, potassium 3.0, creatinine 1.62 with a history of chronic kidney disease, BNP 441, total bilirubin 1.3, negative COVID, flu.? In the ER he was given a dose of Rocephin, albuterol, oral potassium and IV Lasix.? Be admitted for further management and treatment of community-acquired pneumonia and acute on chronic congestive heart failure. Hospital Course Admitted to telemetry; started on antibiotics to cover community-acquired pneumonia. BNP on admission 441 for which Cardiology was consulted. After review of echo in clinical status cardiology did not believe this was related to CHF rather was related to pneumonia. Pulse dose steroids were added approximately 24 hours after admission and patient continued to improve throughout his hospitalization. He remained afebrile without acute issues. On the day of discharge he had a 6 minute walk by Pulmonary for which he did not require supplemental O2. At this point in time he will be discharged home to complete a course of Augmentin/doxycycline and prednisone taper. He will follow-up with his PCP in 2 weeks or as indicated Time Spent with Patient Time attestation: Total time managing care of this patient today ____ minutes. Discharge coordination time: Greater than 30 minutes Quality: Safe Use of Opioids Does Pt have an Active Cancer Diagnosis on the Problem List?: No Quality: Stroke Does the patient have a stroke diagnosis?: No Physical Exam Vital Signs: Vital Signs: Last Vital Signs Temp 97.8 F 01/02/23 11:10 Pulse 68 01/02/23 11:10 Resp 20 01/02/23 11:10 BP 151/78 H 01/02/23 11:10 Pulse Ox 96 01/02/23 11:10 O2 Del Method Nasal Cannula 01/02/23 11:10 O2 Flow Rate 2 01/02/23 11:10 Oxygen Flow Rate 5 12/29/22 11:23 BMI result Body Mass Index 31.7 Const: Other: Awake alert lying comfortably in bed. Able speak in full sentences Resp: Other: Improved aeration to bases. Minimal scattered expiratory wheezes Cardio: Other: No S4; positive S1-S2; no S3 murmurs rubs or gallops Extrem: Other: No edema bilateral DS: Data Data Completed and Pending Completed studies during hospitalization [Text1]: Procedures Assistance with Respiratory Ventilation, Less than 24 Consecutive Hours, Continuous Positive Airway Pressure (12/05/21) Introduction of Remdesivir Anti-infective into Peripheral Vein, Percutaneous Approach, [employer] 5 (12/05/21) Labs on day of discharge: Laboratory Results - last 24 hr 01/01/23 01/01/23 01/02/23 16:00 20:30 06:45 WBC 11.9 H RBC 4.19 L Hgb 11.0 L Hct 31.9 L MCV 76.1 L MCH 26.3 L MCHC 34.5 RDW 14.6 Plt Count 279 MPV 9.5 Immature Gran % (Auto) 1.8 H Neut % (Auto) 87.2 H Lymph % (Auto) 7.9 L [place] % (Auto) 2.9 Eos % (Auto) 0.0 Baso % (Auto) 0.2 Lymph # (Auto) 0.9 L [place] # (Auto) 0.4 Eos # (Auto) 0.0 Baso # (Auto) 0.0 Abs Immat Gran (auto) 0.21 H Absolute Neuts (auto) 10.4 H Absolute Nucleated RBC 0.000 Nucleated RBC % (auto) 0.0 Sodium Potassium Chloride Carbon Dioxide Anion Gap BUN Creatinine Estim Creat Clear Calc Estimated GFR POC Glucose 290 H 335 H Fasting Glucose Calcium Total Bilirubin AST ALT Alkaline Phosphatase Total Protein Albumin 01/02/23 01/02/23 01/02/23 06:45 07:23 11:13 WBC RBC Hgb Hct MCV MCH MCHC RDW Plt Count MPV Immature Gran % (Auto) Neut % (Auto) Lymph % (Auto) [place] % (Auto) Eos % (Auto) Baso % (Auto) Lymph # (Auto) [place] # (Auto) Eos # (Auto) Baso # (Auto) Abs Immat Gran (auto) Absolute Neuts (auto) Absolute Nucleated RBC Nucleated RBC % (auto) Sodium 138 Potassium 4.0 Chloride 98 Carbon Dioxide 31 H Anion Gap 13 BUN 47 H Creatinine 1.39 Estim Creat Clear Calc 43.5 Estimated GFR 49 POC Glucose 316 H 358 H* Fasting Glucose 321 H Calcium 9.1 Total Bilirubin 1.0 AST 24 ALT 26 Alkaline Phosphatase 78 Total Protein 6.0 L Albumin 3.4 L Preliminary micro results at discharge 12/29/22 12:03 Blood Culture - Preliminary Blood - Venous No growth after 48 hours. 12/29/22 12:03 Blood Culture - Preliminary Blood - Venous No growth after 48 hours. Discharge Plan Discharge Anticipated Discharge Date/Time: 01/02/23 12:49 Patient Disposition: Home, Self-Care Discharge Diagnosis: Community-acquired pneumonia Referrals: Po,Carmen Joshi MD [Primary Care Provider] - 1 Week Discharge Medications: New doxycycline hyclate 100 mg tablet 100 mg PO BID Qty: 14 0RF amoxicillin-pot clavulanate 875-125 mg tablet 1 tab PO BID Qty: 14 0RF Continued metoprolol succinate 100 mg tablet extended release 24 hr 100 mg PO DAILY 90 Days Qty: 90 2RF atorvastatin 40 mg tablet 40 mg PO DAILY Qty: 90 3RF levothyroxine 75 mcg tablet 75 mcg PO DAILY 90 Days Qty: 90 2RF cholecalciferol (vitamin D3) [Vitamin D3] 25 mcg (1,000 unit) Tablet 25 mcg PO DAILY acetaminophen 325 mg Tablet 650 mg PO Q6H PRN (Reason: Pain) hydrochlorothiazide 12.5 mg tablet 12.5 mg PO DAILY 90 Days Qty: 90 3RF glipizide 5 mg tablet extended release 24hr 5 mg PO DAILY Qty: 90 2RF Eliquis 5 mg tablet 5 mg PO BID 90 Days Qty: 180 3RF Discontinued oseltamivir [Tamiflu] 75 mg capsule 75 mg PO BID 5 Days Qty: 10 0RF (DME) blood-glucose meter [FreeStyle Lite Meter] Kit See Rx Instructions .ROUTE .MEDSUPPLY Qty: 1 0RF Rx Instructions: As directed Discharge Orders: Discharge Order (Routine); Ordered 01/02/23 Ordered By: Zaid Glover Diet: Advance to usual diet Activity on Discharge: As tolerated Stand Alone Forms: Patient Portal Discharge page Care Plan Goals: Complete course of doxycycline twice a day for 7 days and Augmentin twice a day for 7 days Health Concerns: Resume all previous hospital medications Plan of Treatment: Follow-up with the PCP in 2 weeks Assessment: See discharge summary
--- NOTE | 2023-01-02 13:58 | MHC.CM.PN ---
DP: PT HAS BEEN MEDICALLY CLEARED FOR DC HOME, NO SERVICES. [facility] WILL TRANSPORT HOME.
== END 2023-01-02 15:20 | disposition home or self-care (01) | DRG 193 ==
LOC: HO.ED 15:06 → HO.EDOVER 17:04 → HO.IMC 18:34
PROVIDERS: Physician Assistant Medical; Admitting Provider Nurse Practitioner Acute Care; Emergency Provider Emergency Medicine Emergency Medical Services; PCP Internal Medicine; Visit Provider Hospitalist
DX: J18.9 Pneumonia, unspecified organism (principal); I50.33 Acute on chronic diastolic (congestive) heart failure; I48.19 Other persistent atrial fibrillation; E87.1 Hypo-osmolality and hyponatremia; E03.9 Hypothyroidism, unspecified; E11.22 Type 2 diabetes mellitus with diabetic chronic kidney disease; E11.65 Type 2 diabetes mellitus with hyperglycemia; E87.6 Hypokalemia; G47.33 Obstructive sleep apnea (adult) (pediatric); D50.9 Iron deficiency anemia, unspecified; E66.9 Obesity, unspecified; D63.1 Anemia in chronic kidney disease; Z68.31 Body mass index [BMI] 31.0-31.9, adult; Z20.822 Contact with and (suspected) exposure to COVID-19; Z79.01 Long term (current) use of anticoagulants; Z79.84 Long term (current) use of oral hypoglycemic drugs; Z79.890 Hormone replacement therapy; Z79.899 Other long term (current) drug therapy
CPT/HCPCS: 36415; 71250; 80048; 80053; 81001; 82803; 82947; 83605; 83735; 83880; 84484; 85025; 87040; 87502; 87635; 93005; 93306; 94640; 97110; 97116; 97162; 99285; J0696; J1940; J2930; Q9957

== ENCOUNTER 2023-01-09 07:14 | Inpatient (IN) | payer MEDICARE, SELFPAY ==
--- NOTE | ~2023-01-09 | XR_ITS ---
EXAMINATION: XR CHEST CLINICAL INFORMATION: Shortness of breath COMPARISON: December 29, 2022 TECHNIQUE: AP portable view of the chest was obtained. FINDINGS: There has been improvement in bilateral regions of opacities. There remains some faint density seen in the mid to upper right lung and lower left lung. No pneumothorax or pleural effusion. Heart normal size. No evidence of pulmonary edema. XR/XR chest 1V IMPRESSION: Improving bilateral airspace disease.
[2023-01-09 07:26] VITALS: BP 109/63; PULSE 93; RESP 18; TEMP 36.6; O2SAT 97; BMI 28.9
[2023-01-09 07:54] VITALS: BP 112/58; PULSE 70; RESP 16; TEMP 36.7; O2SAT 95
--- NOTE | 2023-01-09 08:00 | PC.NURSE ---
pt a&o x4, pleasant, calm, and cooperative. reports 10/10 prostate pain . per pt , pt just d/c from here after spending 5 days in hospital for pneumonia. pt sts that pt has not been himself and is concerned. pt has not been eating or drinking regularly, will not get out of bed, is weak, lethargic, and cannot walk on own. pt changed over to hospital attire. vss. provider at bedside. wctm
--- NOTE | 2023-01-09 08:09 | ED_ITS ---
HPI - General Adult General Chief complaint: General Medical Stated complaint: hallucinating, cant walk, prostate pain Time Seen by Provider: 01/09/23 07:53 Source: patient and family (Spouse) Mode of arrival: ambulatory Limitations: no limitations History of Present Illness HPI narrative: 77-year-old male presented to the ER with his for difficulty urinating, patient is incoherent and not acting himself with generalized fatigue and weakness. Patient was discharged last week from the hospital for pneumonia on Augmentin/doxycycline with a course of prednisone taper. Related Data Home Medications Medication Instructions Recorded Confirmed cholecalciferol (vitamin D3) 25 25 mcg PO DAILY 12/06/21 12/29/22 mcg (1,000 unit) tablet (Vitamin D3) acetaminophen 325 mg tablet 650 mg PO Q6H PRN Pain 12/29/22 12/29/22 Previous Rx's Medication Instructions Recorded apixaban 5 mg tablet (Eliquis) 5 mg PO BID 90 days #180 tabs 11/25/21 metoprolol succinate 100 mg 100 mg PO DAILY 90 days #90 tabs 06/14/22 tablet,extended release 24 hr atorvastatin 40 mg tablet 40 mg PO DAILY #90 tabs 10/12/22 glipizide 5 mg tablet, extended 5 mg PO DAILY #90 tabs 10/21/22 release 24 hr hydrochlorothiazide 12.5 mg tablet 12.5 mg PO DAILY 90 days #90 tabs 10/21/22 levothyroxine 75 mcg tablet 75 mcg PO DAILY 90 days #90 tabs 11/28/22 amoxicillin 875 mg-potassium 1 tab PO BID #14 tabs 01/02/23 clavulanate 125 mg tablet doxycycline hyclate 100 mg tablet 100 mg PO BID #14 tabs 01/02/23 Allergies Allergy/AdvReac Type Severity Reaction Status Date / Time gabapentin AdvReac Intermediate lethargy Verified 01/09/23 07:26 lisinopril AdvReac Intermediate Cough Verified 01/09/23 07:26 metformin AdvReac Intermediate lethargy Verified 01/09/23 07:26 Review of Systems Review of Systems: All other systems are reviewed and are negative Constitutional: Reports as per HPI and Reports no additional constitutional complaints Eyes: Reports as per HPI and Reports no additional eye complaints Reports system reviewed and no additional complaints, except as documented Cardiovascular: Reports as per HPI and Reports no additional cardiovascular complaints Respiratory: Reports as per HPI and Reports no additional respiratory complaints Gastrointestinal: Reports as per HPI and Reports no additional gastrointestinal complaints Genitourinary: Reports no additional female genitourinary complaints Musculoskeletal: Reports no additional musculoskeletal complaints Skin/Breast: Reports system reviewed and no additional complaints, except as docu Psychiatric: Reports no additional psychiatric complaints Endocrine: Reports no additional endocrine complaints Hematologic/Lymphatic: Reports no additional hematologic/lymphatic complaints Allergic/Immunologic: Reports no additional allergic/immunologic complaints Reports system reviewed and no additional complaints, except as documented and Reports Abnormal speech present FOR[facility]LY [facility], [facility] Past Medical History Medical History (HFpEF) heart failure with preserved ejection fraction Anxiety and depression CHF (congestive heart failure) CKD (chronic kidney disease) stage 3, GFR 30-59 ml/min Hypercholesterolemia Non Hodgkin's lymphoma LARISSA (obstructive sleep apnea) PAF (paroxysmal atrial fibrillation) Peptic ulcer disease Thrombocytopenia Type 2 diabetes mellitus with hyperglycemia Type 2 diabetes mellitus with unspecified complications Vitamin D deficiency Surgical History H/O colonoscopy H/O lymph node biopsy History of esophagogastroduodenoscopy (EGD) History of shoulder surgery Hx of cataract extraction Family History Family History Father Lung cancer Mother Breast cancer Sister Breast cancer Brother Substance use disorder Sister No problems noted. Son No problems noted. Daughter No problems noted. Social History Social History Household Members: Spouse Housing: House Are you a primary director day care center to a significant other at home: No Do you presently have visiting nurse or other home services: No Alcohol intake: never Patient Tobacco Use Status: Never used Tobacco Smoked in Last 30 Days: No e-Cigarette/Vaping Use: Never Used Second Hand Smoke Exposure: No Use of substances other than those prescribed or required for medical reasons: No Advance Directives: Yes Advance Directives on File: Yes Advance Directives Date on File: 12/19/21 service: No Current occupational status: retired Cognitive needs: No Hearing needs: No Vision needs: Yes Physical Exam ED Vital Signs: Vital Signs - 24 hr 01/09/23 07:26 01/09/23 07:54 Temperature 97.9 F 98.0 F Pulse Rate 93 70 Respiratory Rate 18 16 Blood Pressure 109/63 112/58 L Pulse Oximetry 97 95 Oxygen Delivery Method Room Air Room Air BMI result Body Mass Index 28.9 Vital signs have been reviewed as appeared to be correct. Blood pressure normal. Heart rate normal. Respiration rate normal. Temperature normal. Oxygen saturation normal. Appearance: Alert. Oriented X3. No acute distress. Head: Normal external exam. Normocephalic. Atraumatic. No Sellers signs noted. No raccoon eyes noted Eyes: PERRLA. EOMI. Conjunctiva and sclera normal. Eyelids normal. ENT: TM's Normal. Pharynx normal. Uvula midline. Moist mucous membranes. No trismus noted. No drooling noted. No muffled voice noted. Neck: Normal inspection. Neck supple. FROM. No adenopathy. Thyroid Normal. No meningeal signs. No neck mass noted. CVS: Normal heart rate and rhythm. Heart sound normal. No murmurs noted. Pulses normal throughout. Respiratory: No respiratory distress. Painless inspiration. Breath sounds normal. No wheezes/rales/rhonchi noted. Chest nontender. No accessory muscle usage noted or decreased air movement noted. Abdomen: Soft and nontender. Bowel sounds normal in all 4 quadrants. No distention noted. No organomegaly noted. No visible injury noted. Back: No CVA tenderness. Full range of motion noted. Skin: Skin warm and dry. Normal skin color. Normal skin turgor. No rashes/lesions/lacerations noted. Extremities: No lower extremity edema. Extremities exhibit normal range of motion. Extremities nontender. Neuro: Oriented X 3. Cranial nerve exam: II-XII are grossly intact No motor deficit. No sensory deficit. Reflexes normal. Course Course Course Narrative: 77-year-old male came in with acute mental status change and becoming more incoherent as per patient found to have urine retention with acute on chronic renal failure and hyponatremia, Rincon catheter was placed patient drained 1.5 L of clear urine, patient will be given normal saline and admitted. Medical Decision Making Differential Diagnosis Differential Diagnoses: The differential diagnosis associated with the presentation includes (Mental status change, urinary retention, acute on chronic renal failure, hyponatremia, severe anemia.) Admission/Observation Consideration of admission/observation: Escalation of care including admissio n/observation considered Consult Healthcare Provider Management of the patient was discussed with: Hospitalist Lab Data MDM Lab Attestation statement: I reviewed the patient's lab results. 01/09/23 09:47 01/09/23 09:47 Labs: Lab Results 01/09/23 01/09/23 01/09/23 Range/Units 08:54 09:47 09:47 WBC 9.1 (4.8-10.8) X10*3/uL RBC 4.66 (4.60-5.80) X10*6/uL Hgb 12.0 L (14.0-18.0) g/dl Hct 35.7 L (42.0-52.0) % MCV 76.6 L (80.0-98.0) fL MCH 25.8 L (27.0-33.0) pg MCHC 33.6 (31.0-36.0) g/dl RDW 15.0 (11.0-16.0) % Plt Count 208 D (160-400) X10*3/uL MPV 10.4 (9.4-12.4) fL Immature Gran % (Auto) 1.4 H (0.0-0.4) % Neut % (Auto) 69.3 (45-73) % Lymph % (Auto) 17.0 L (20-40) % [place] % (Auto) 12.1 H (2-11) % Eos % (Auto) 0.1 (0-4) % Baso % (Auto) 0.1 (0-2) % Lymph # (Auto) 1.5 (1.2-4.9) X10*3/uL [place] # (Auto) 1.1 (0.1-1.2) X10*3/uL Eos # (Auto) 0.0 (0.0-0.4) X10*3/uL Baso # (Auto) 0.0 (0.0-0.2) X10*3/uL Abs Immat Gran (auto) 0.13 H (0.00-0.03) X10*3/uL Absolute Neuts (auto) 6.3 (2.0-8.3) x10*3/uL Absolute Nucleated RBC 0.000 (0.0-0.012) X10*3/uL Nucleated RBC % (auto) 0.0 (0.0-0.2) /100WBC Sodium 129 L (135-145) mmol/L Potassium 3.1 L D (3.3-5.1) mmol/L Chloride 91 L (96-108) mmol/L Carbon Dioxide 26 (22-29) mmol/L Anion Gap 15 (12-20) BUN 35 H (9-16) mg/dL Creatinine 1.66 H (0.5-1.4) mg/dL Estim Creat Clear Calc 34.9 Estimated GFR 40 Random Glucose 103 (60-115) mg/dL Calcium 8.8 (8.4-10.2) mg/dL Urine Color Dark Yellow Urine Appearance Clear Urine pH 5.5 (5.0-9.0) Ur Specific [place] 1.020 (1.005-1.025) Urine Protein 30 (1+) H (Neg-Trace) mg/dL Urine Glucose (UA) Negative (Negative) mg/dL Urine Ketones Trace (Negative) mg/dL Urine Blood Negative (Negative) Urine Nitrite Negative (Negative) Ur Leukocyte Esterase Negative (Negative) Urine RBC 0-2 (0-2) /HPF Urine WBC 0-5 (0-5) /HPF Ur Squamous Epith Cells 0-2 (0-2) /HPF Urine Bacteria None Seen (None Seen) Hyaline Casts 0-2 (0-2) /LPF Independent Interpretation I performed an independent interpretation of an: Plain X-Ray (Chest: Improving bilateral airspace disease.) Radiology Impression Discussion of test interpretation with radiology: I have reviewed the radiologist's reading. Discharge Plan Discharge Clinical Impression: Acute urinary retention, Acute on chronic kidney failure, Acute hyponatremia, Acute alteration in mental status Patient Disposition: Admitted As Inpatient
[2023-01-09 09:11] LABS: Appearance Urine Clear; Color Urine Dark Yellow; Glucose Urine UA Negative (Negative); Leukocyte Esterase Urine Negative (Negative); Nitrite Urine Negative (Negative); PH 5.5 (5.0-9.0); UMIC TRIGGER UACC YES; Urine Blood Negative (Negative); Urine Ketones Trace mg/dL (Negative); Urine Protein 30 (1+) mg/dL (Neg-Trace)
[2023-01-09 09:15] LABS: Bacteria Urine None Seen (None Seen); Hyaline Casts Urine 0-2 /LPF (0-2); RBC Urine 0-2 /HPF (0-2); Squamous Epithelial Cell Urine 0-2 /HPF (0-2); WBC Urine 0-5 /HPF (0-5)
[2023-01-09 09:51] LABS: MANUAL DIFF FLAG NO
[2023-01-09 10:13] LABS: Anion Gap 15 (12-20); Basophils Percent Auto 0.1 % (0-2); Blood Urea Nitrogen 35 mg/dL (9-16); Calcium 8.8 mg/dL (8.4-10.2); Carbon Dioxide 26 mmol/L (22-29); Chloride 91 mmol/L (96-108); Creatinine Clr Calc Pharmacy 34.9; Eosinophils Percent Auto 0.1 % (0-4); Estimated Glomerular Filt Rate 40; Glucose Random 103 mg/dL (60-115); Hematocrit 35.7 % (42.0-52.0); Imm Gran Abs Auto 0.13 X10*3/uL (0.00-0.03); Imm Gran Pct Auto 1.4 % (0.0-0.4); Lymphocytes Absolute Auto 1.5 X10*3/uL (1.2-4.9); Mean Corpuscular HGB Conc 33.6 g/dl (31.0-36.0); Mean Corpuscular Hemoglobin 25.8 pg (27.0-33.0); Mean Corpuscular Volume 76.6 fL (80.0-98.0); Mean Platelet Volume 10.4 fL (9.4-12.4); Monocytes Absolute Auto 1.1 X10*3/uL (0.1-1.2); Monocytes Percent Auto 12.1 % (2-11); Neutrophils Absolute Auto 6.3 x10*3/uL (2.0-8.3); Neutrophils Percent Auto 69.3 % (45-73); Platelet Count 208 X10*3/uL (160-400); Potassium 3.1 mmol/L (3.3-5.1); Red Blood Count 4.66 X10*6/uL (4.60-5.80); Sodium 129 mmol/L (135-145); White Blood Count 9.1 X10*3/uL (4.8-10.8)
[2023-01-09] MEDS: 0.9 % Sodium Chloride 1,000 ML 999 ML IV (13:16)
[2023-01-09 13:20] VITALS: BP 117/66; PULSE 87; RESP 24; O2SAT 95
[2023-01-09] MEDS: Potassium Chloride Packet 20 MEQ PACKET 40 MEQ PO (13:51)
--- NOTE | 2023-01-09 13:51 | PM.IMHP ---
History of Present Illness Date of Service: 01/09/23 <MELL Rosario Last Filed: 01/09/23 14:54> Attending physician on admission: Dillon Patricia <MELL Rosario Last Filed: 01/09/23 14:54> Chief Complaint: difficulty urinating <MELL Rosario Last Filed: 01/09/23 14:54> This is a 77 year male was recently hospitalized for pneumonia who was brought to the emergency department for evaluation of difficulty urinating. Patient was hospitalized from December 29 to January 02 for treatment of community-acquired pneumonia. For the past few days he has been having difficulty urinating more than usual. In addition his reports generalized fatigue and some intermittent confusion. This morning he was unable to urinate in began having complaints of abdominal distention and pelvic pressure. In the emergency department workup was significant for acute kidney injury with serum creatinine of 1.66, hyponatremia with sodium of 129, potassium of 3.1. Patient was bladder scanned and noted to be retaining urine, Stout catheter was placed and drained 1.5 L of urine. Patient and his both state that he feels better already. The patient has some persistent cough since previous admission although this is improving. Repeat chest x-ray obtained showing improving bilateral airspace disease. He received a L of normal saline and the decision was made to admit him to the hospital for further management of PIYUSH, urinary retention and electrolyte abnormalities. <MELL Rosario - Last Filed: 01/09/23 14:54> Review of Systems Review of Systems: Yes all other systems are reviewed and are negative <MELL Rosario Last Filed: 01/09/23 14:54> Constitutional: Constitutional: Reports chills and Denies fever(s) <MELL Rosario Last Filed: 01/09/23 14:54> ENT: Denies dizziness <MELL Rosario Last Filed: 01/09/23 14:54> Cardiovascular: Cardiovascular: Denies chest pain and Denies palpitations <MELL Rosario Last Filed: 01/09/23 14:54> Respiratory: Respiratory: Reports cough <MELL Rosario Last Filed: 01/09/23 14:54> Gastrointestinal: Gastrointestinal: Denies diarrhea, Denies nausea and Denies vomiting <MELL Rosario - Last Filed: 01/09/23 14:54> Neurologic: Denies dizziness <MELL Rosario - Last Filed: 01/09/23 14:54> Endocrine: Endocrine: Denies palpitations <MELL Rosario - Last Filed: 01/09/23 14:54> [facility] Medical History: Medical History (HFpEF) heart failure with preserved ejection fraction Anxiety and depression CHF (congestive heart failure) CKD (chronic kidney disease) stage 3, GFR 30-59 ml/min Hypercholesterolemia Non Hodgkin's lymphoma LARISSA (obstructive sleep apnea) PAF (paroxysmal atrial fibrillation) Peptic ulcer disease Thrombocytopenia Type 2 diabetes mellitus with hyperglycemia Type 2 diabetes mellitus with unspecified complications Vitamin D deficiency <MELL Rosario - Last Filed: 01/09/23 14:54> Family History: Family History Father Lung cancer Mother Breast cancer Sister Breast cancer Brother Substance use disorder Sister No problems noted. Son No problems noted. Daughter No problems noted. <MELL Rosario - Last Filed: 01/09/23 14:54> Surgical History: Surgical History H/O colonoscopy H/O lymph node biopsy History of esophagogastroduodenoscopy (EGD) History of shoulder surgery Hx of cataract extraction <MELL Rosario - Last Filed: 01/09/23 14:54> Social History: Social History Household Members: Spouse Housing: House Are you a primary home care coordinator to a significant other at home: No Do you presently have visiting nurse or other home services: No Alcohol intake: never Patient Tobacco Use Status: Never used Tobacco Smoked in Last 30 Days: No e-Cigarette/Vaping Use: Never Used Second Hand Smoke Exposure: No Use of substances other than those prescribed or required for medical reasons: No Have you been hit, kicked, punched, or otherwise hurt by someone within the past year? If so, by whom?: No Do you feel safe in your current relationship?: Yes Is there a partner from a previous relationship who is making you feel unsafe now?: No Are you made to feel afraid or neglected: No Advance Directives: Yes Advance Directives Information Provided: No Advance Directives on File: Yes Advance Directives Date on File: 12/19/21 Do you have thoughts of harming others: None Do you have a plan to hurt others: No Plan Recently lost weight without trying: No How much weight loss: Not applicable Eating poorly because of decreased appetite: No Nutrition screen score: 0 Nutrition Risks: No Nutritional Risk Poor oral hygiene: No service: No Current occupational status: retired Cognitive needs: No Hearing needs: No Vision needs: Yes <MELL Rosario - Last Filed: 01/09/23 14:54> Meds Allergies/Adverse reactions: Allergies Allergy/AdvReac Type Severity Reaction Status Date / Time gabapentin AdvReac Intermediate lethargy Verified 01/09/23 07:26 lisinopril AdvReac Intermediate Cough Verified 01/09/23 07:26 metformin AdvReac Intermediate lethargy Verified 01/09/23 07:26 <MELL Rosario - Last Filed: 01/09/23 14:54> Active Medications: Current Medications Acetaminophen (Acetaminophen 325 Mg Tablet) 650 mg PO Q6H PRN PRN Reason: Pain, Mild (Pain Scale 1-3) Docusate Sodium (Docusate Sodium 100 Mg Capsule) 100 mg PO DAILY PRN PRN Reason: Constipation Glucose (Glucose Gel 15 Gm Gel..Gram.) 15 gm PO Q15M PRN; Protocol PRN Reason: per Hypoglycemia Standing Ord. Dextrose (D10) 250 mls @ 750 mls/hr IV Q15M PRN; Protocol PRN Reason: per Hypoglycemia Standing Ord. Insulin Human Lispro (Insulin Lispro 100 Unit/Ml 3 Ml Vial) 0 unit SUBCUT QIDACHS [facility]; Protocol Ondansetron HCl (Ondansetron Hcl 4 Mg/2 Ml Vial) 4 mg IVPUSH Q8H PRN PRN Reason: Nausea and Vomiting Pharmacy Consult (Consult Rx Perform Med Rec) 1 each MISCELLANE ONCE PRN PRN Reason: Consult order Sodium Chloride (0.9 % Sodium Chloride Flush 3 Ml Syringe) 3 ml IVFLUSH QSHIFT OUMAR Tamsulosin HCl (Tamsulosin Hcl 0.4 Mg Capsule) 0.4 mg PO BEDTIME OUMAR <MELL Rosario - Last Filed: 01/09/23 14:54> Home medications: Home Medications Medication Instructions Recorded Confirmed Last Taken Type cholecalciferol (vitamin D3) 25 25 mcg PO DAILY 12/06/21 01/09/23 01/09/23 09:00 History mcg (1,000 unit) tablet (Vitamin D3) acetaminophen 325 mg tablet 650 mg PO Q6H PRN Pain 12/29/22 01/09/23 Unknown History levothyroxine 75 mcg tablet 75 mcg PO DAILY@0600 01/09/23 01/09/23 01/09/23 09:00 History <MELL Rosario - Last Filed: 01/09/23 14:54> Physical Exam Vital Signs and Narrative: Vital Signs: Last Vital Signs Temp 98.0 F 01/09/23 07:54 Pulse 87 01/09/23 13:20 Resp 24 H 01/09/23 13:20 BP 117/66 01/09/23 13:20 Pulse Ox 95 01/09/23 13:20 O2 Del Method Room Air 01/09/23 13:20 BMI result Body Mass Index 28.9 <MELL Rosario - Last Filed: 01/09/23 14:54> Results Labs CBC and Chem 7: 01/09/23 09:47 01/09/23 09:47 <MELL Rosario - Last Filed: 01/09/23 14:54> Labs: Laboratory Results - last 24 hr 01/09/23 01/09/23 01/09/23 08:54 09:47 09:47 MCV 76.6 L MCH 25.8 L MCHC 33.6 RDW 15.0 Plt Count 208 D MPV 10.4 Immature Gran % (Auto) 1.4 H Neut % (Auto) 69.3 Lymph % (Auto) 17.0 L [place] % (Auto) 12.1 H Eos % (Auto) 0.1 Baso % (Auto) 0.1 Lymph # (Auto) 1.5 [place] # (Auto) 1.1 Eos # (Auto) 0.0 Baso # (Auto) 0.0 Abs Immat Gran (auto) 0.13 H Absolute Neuts (auto) 6.3 Absolute Nucleated RBC 0.000 Nucleated RBC % (auto) 0.0 Anion Gap 15 Estim Creat Clear Calc 34.9 Estimated GFR 40 Random Glucose 103 Calcium 8.8 Urine Color Dark Yellow Urine Appearance Clear Urine pH 5.5 Ur Specific [place] 1.020 Urine Protein 30 (1+) H Urine Glucose (UA) Negative Urine Ketones Trace Urine Blood Negative Urine Nitrite Negative Ur Leukocyte Esterase Negative Urine RBC 0-2 Urine WBC 0-5 Ur Squamous Epith Cells 0-2 Urine Bacteria None Seen Hyaline Casts 0-2 <MELL Rosario - Last Filed: 01/09/23 14:54> Imaging Radiologist's Impressions: Impressions Chest X-Ray 01/09/23 08:22 IMPRESSION: Improving bilateral airspace disease. <MELL Rosario - Last Filed: 01/09/23 14:54> Assessment and Plan (1) Acute urinary retention: Status: Acute <MELL Rosario - Last Filed: 01/09/23 14:54> (2) Acute on chronic kidney failure: Status: Acute <MELL Rosario - Last Filed: 01/09/23 14:54> (3) Acute hyponatremia: Status: Acute <MELL Rosario - Last Filed: 01/09/23 14:54> This is a 77-year-old male with history of diabetes, atrial fibrillation on Eliquis, recent admission for pneumonia who presents to the emergency department with abdominal pain and confusion found to have urinary retention, PIYUSH, electrolyte abnormalities Acute urinary retention stout placed in ED, drainage of 1.5L of urine will start flomax PIYUSH on 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 anticipate improvement now that obstruction resolved with stout gentle IVF hold nephrotoxins follow renal function acute on chronic hyponatremia sodium low on previous admission recently started on HCTZ - will d/c HCTZ follow BMP acute hypokalemia replace and follow check magnesium mild transaminitis no abdominal pain repeat LFTs in am hold statin DM SSI, POCs, ADA diet hold glipizide hypothyroidism continue synthroid Chronic HFpEF no on diuretic at baseline paroxysmal atrial fibrillation continue metoprolol, Eliquis HLD Hold statin for mild elevation in LFTs chronic micocytic anemia CBC stable Above transfusion threshold LARISSA cpap dvt ppx - Eliquis code status -full code HCP - Given acute urinary retention, multiple electrolyte abnormalities any PIYUSH patient will likely require 2 midnight stay in the hospital for management <MELL Rosario - Last Filed: 01/09/23 14:54> This is a 77-year-old male with history of diabetes, atrial fibrillation on Eliquis, recent admission for pneumonia who presents to the emergency department with abdominal pain and confusion found to have urinary retention, PIYUSH, electrolyte abnormalities Acute urinary retention stout placed in ED, drainage of 1.5L of urine will start flomax PIYUSH on 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 anticipate improvement now that obstruction resolved with stout gentle IVF hold nephrotoxins follow renal function acute on chronic hyponatremia sodium low on previous admission recently started on HCTZ - will d/c HCTZ follow BMP acute hypokalemia replace and follow check magnesium mild transaminitis no abdominal pain repeat LFTs in am hold statin DM SSI, POCs, ADA diet hold glipizide hypothyroidism continue synthroid Chronic HFpEF no on diuretic at baseline paroxysmal atrial fibrillation continue metoprolol, Eliquis HLD Hold statin for mild elevation in LFTs chronic micocytic anemia CBC stable Above transfusion threshold LARISSA cpap dvt ppx - Eliquis code status -full code HCP - Given acute urinary retention, multiple electrolyte abnormalities any PIYUSH patient will likely require 2 midnight stay in the hospital for management Addendum to history and physical by the advanced practice provider, MELL Nguyen I interviewed and examined the patient. I discussed their presentation and management with the YU. I reviewed the history and physical and agree with the documentation, with the following additions and corrections: 77yo M c DM2, AF on apixaban, recently hospitalized here 12/29-01/02 for CAP, presenting with several days of difficulty urinating, fatigue, and confusion. Developed abd distension/pressure this AM. Found to have PIYUSH/CKD3, hyponatremia, + urinary retention. Stout placed, 1.5L urine drained. Plan admit to M/S, continue Stout, start alpha jess, d/c HCTZ, monitor Na <Natalia Roth MD - Last Filed: 01/09/23 16:45> Time Spent With Patient Time: Total time managing care of this patient today ____ minutes. <MELL Rosario - Last Filed: 01/09/23 14:54> Quality Stroke Does the patient have a stroke diagnosis?: No <MELL Rosario - Last Filed: 01/09/23 14:54> VTE Prior VTE?: No <MELL Rosario - Last Filed: 01/09/23 14:54> VTE Risk Level:: Medical - moderate - high <MELL Rosario - Last Filed: 01/09/23 14:54> VTE Device Contraindication: Treatment Not Indicated <MELL Rosario - Last Filed: 01/09/23 14:54> VTE Drug Contraindication: N/A - Med Ordered <MELL Rosario - Last Filed: 01/09/23 14:54>
[2023-01-09 14:00] LABS: Magnesium 2.2 mg/dL (1.6-2.6)
[2023-01-09 14:13] LABS: Alanine Aminotransferase 39 U/L (0-40); Albumin Level 3.8 g/dL (3.5-5.0); Alkaline Phosphatase 70 U/L (39-117); Aspartate Amino Transferase 41 U/L (5-37); Bilirubin Direct 0.7 mg/dL (0.0-0.5); Bilirubin Total 2.2 mg/dL (0.0-1.0); Total Protein 6.4 g/dL (6.5-8.0)
--- NOTE | 2023-01-09 14:41 | PHA.MEDREC ---
Pharmacy Consult ? Medication Reconciliation Pharmacy has completed the medication reconciliation. Spoke to patient's spouse to confirm meds. Patient recently discharged 01/02/23, used med record.
[2023-01-09 16:11] VITALS: BMI 30.3
[2023-01-09 16:24] VITALS: BP 112/53; PULSE 78; RESP 20; TEMP 37.4; O2SAT 94
[2023-01-09] MEDS: 0.9 % Sodium Chloride Flush 3 ML SYRINGE IVFLUSH (16:26)
[2023-01-09] MEDS: 0.9 % Sodium Chloride 1,000 ML 80 ML IVCONT (16:35)
[2023-01-09 16:37] LABS: Glucose, Whole Blood 88 mg/dL (60-115)
[2023-01-09 19:17] VITALS: BP 145/70; PULSE 77; RESP 16; TEMP 36.4; O2SAT 95
[2023-01-09] MEDS: Amoxicillin/Potassium Clav 875 MG TABLET PO (20:11)
[2023-01-09] MEDS: Doxycycline Monohydrate 100 MG CAPSULE PO (20:11)
[2023-01-09] MEDS: Apixaban 5 MG TABLET PO (20:11)
[2023-01-09] MEDS: Tamsulosin HCL 0.4 MG CAPSULE PO (20:11)
[2023-01-09 20:26] LABS: Glucose, Whole Blood 56 mg/dL (60-115)
[2023-01-09 20:52] LABS: Glucose, Whole Blood 110 mg/dL (60-115)
--- NOTE | 2023-01-09 21:06 | PC.NURSE ---
pt POC at 20:30 56, provide orange juice and peanut butter jelly sandwich. recheckd after 15min. poc 110. dr. Ashraf aware of this. will monitor sugar and s/s.
[2023-01-09 23:03] VITALS: PULSE 86; O2SAT 96
[2023-01-10 02:56] VITALS: BP 119/71; PULSE 57; RESP 16; TEMP 37.2; O2SAT 94
[2023-01-10] MEDS: Levothyroxine Sodium 75 MCG TABLET PO (05:25)
[2023-01-10 07:10] LABS: Alanine Aminotransferase 53 U/L (0-40); Albumin Level 2.9 g/dL (3.5-5.0); Alkaline Phosphatase 58 U/L (39-117); Anion Gap 11 (12-20); Aspartate Amino Transferase 49 U/L (5-37); Bilirubin Direct 0.4 mg/dL (0.0-0.5); Bilirubin Total 1.2 mg/dL (0.0-1.0); Blood Urea Nitrogen 30 mg/dL (9-16); Carbon Dioxide 23 mmol/L (22-29); Chloride 99 mmol/L (96-108); Creatinine Clr Calc Pharmacy 47.4; Estimated Glomerular Filt Rate 56; Glucose Random 144 mg/dL (60-115); Potassium 3.4 mmol/L (3.3-5.1); Sodium 130 mmol/L (135-145); Total Protein 4.9 g/dL (6.5-8.0)
[2023-01-10 07:40] VITALS: BP 131/73; PULSE 91; RESP 16; TEMP 36.6; O2SAT 97
[2023-01-10 07:53] LABS: Glucose, Whole Blood 142 mg/dL (60-115)
[2023-01-10 09:21] LABS: Osmolality, Serum 275 mosm/kg (281-305)
[2023-01-10 09:21] LABS: Osmolality Urine 693 mosm/kg (373-1093)
[2023-01-10] MEDS: Apixaban 5 MG TABLET PO ×2 (09:29→20:39)
[2023-01-10] MEDS: Metoprolol Succinate ER 100 MG TAB.ER.24H PO (09:29)
[2023-01-10 11:17] LABS: Glucose, Whole Blood 201 mg/dL (60-115)
[2023-01-10] MEDS: Insulin Lispro 100 UNIT/ML 3 ML VIAL SUBCUT ×2 (11:46→20:41)
--- NOTE | 2023-01-10 12:51 | P.PNIM_ITS ---
Subjective Subjective Date of Service: 01/10/23 Interval History: seen and examined this morning follow up for PIYUSH, urinary retention no overnight events no specific events this morning. no abdominal pain, nausea or vomiting Review of Systems Review of Systems: Yes all other systems are reviewed and are negative Constitutional Constitutional: Denies chills and Denies fever(s) Cardiovascular Cardiovascular: Denies chest pain, Denies palpitations and Denies dyspnea Respiratory Respiratory: Denies cough and Denies dyspnea Gastrointestinal Gastrointestinal: Denies nausea and Denies vomiting Endocrine Endocrine: Denies palpitations Physical Exam Vital Signs: Vital Signs: Last Vital Signs Temp 97.9 F 01/10/23 07:40 Pulse 91 01/10/23 07:40 Resp 16 01/10/23 07:40 BP 131/73 01/10/23 07:40 Pulse Ox 97 01/10/23 07:40 O2 Del Method Room Air 01/10/23 07:40 BMI result Body Mass Index 30.3 : Other: stout in place draining yellow urine Objective Data Active Medications Acetaminophen (Acetaminophen 325 Mg Tablet) 650 mg PO Q6H PRN PRN Reason: Pain, Mild (Pain Scale 1-3) Apixaban (Apixaban 5 Mg Tablet) 5 mg PO BID COUNTS INCLUDE 234 BEDS AT THE [facility] Last Admin: 01/10/23 09:29 Dose: 5 mg Documented By: JAYME Docusate Sodium (Docusate Sodium 100 Mg Capsule) 100 mg PO DAILY PRN PRN Reason: Constipation Glucose (Glucose Gel 15 Gm Gel..Gram.) 15 gm PO Q15M PRN; Protocol PRN Reason: per Hypoglycemia Standing Ord. Dextrose (D10) 250 mls @ 750 mls/hr IV Q15M PRN; Protocol PRN Reason: per Hypoglycemia Standing Ord. Insulin Human Lispro (Insulin Lispro 100 Unit/Ml 3 Ml Vial) 0 unit SUBCUT QIDACHS COUNTS INCLUDE 234 BEDS AT THE [facility]; Protocol Last Admin: 01/10/23 11:46 Dose: 4 unit Documented By: JAYME Levothyroxine Sodium (Levothyroxine Sodium 75 Mcg Tablet) 75 mcg PO DAILY@0600 COUNTS INCLUDE 234 BEDS AT THE [facility] Last Admin: 01/10/23 05:25 Dose: 75 mcg Documented By: PHIL Metoprolol Succinate (Metoprolol Succinate Er 100 Mg Tab.Er.24h) 100 mg PO DAILY COUNTS INCLUDE 234 BEDS AT THE [facility]; Protocol Last Admin: 01/10/23 09:29 Dose: 100 mg Documented By: JAYME Ondansetron HCl (Ondansetron Hcl 4 Mg/2 Ml Vial) 4 mg IVPUSH Q8H PRN PRN Reason: Nausea and Vomiting Pharmacy Consult (Consult Rx Perform Med Rec) 1 each MISCELLANE ONCE PRN PRN Reason: Consult order Sodium Chloride (0.9 % Sodium Chloride Flush 3 Ml Syringe) 3 ml IVFLUSH QSHIFT COUNTS INCLUDE 234 BEDS AT THE [facility] Last Admin: 01/10/23 09:30 Dose: Not Given Documented By: JAYME Non-Admin Reason: IV Running Tamsulosin HCl (Tamsulosin Hcl 0.4 Mg Capsule) 0.4 mg PO BEDTIME COUNTS INCLUDE 234 BEDS AT THE [facility] Last Admin: 01/09/23 20:11 Dose: 0.4 mg Documented By: PHIL Labs 01/09/23 09:47 01/10/23 05:52 Labs: Laboratory Results - last 24 hr 01/09/23 01/09/23 01/09/23 09:47 16:28 20:15 Anion Gap Estim Creat Clear Calc Estimated GFR POC Glucose 88 56 L* Random Glucose Osmolality Calcium Magnesium 2.2 Total Bilirubin 2.2 H Direct Bilirubin 0.7 H AST 41 H ALT 39 Alkaline Phosphatase 70 Total Protein 6.4 L Albumin 3.8 Urine Osmolality Ur Random Sodium 01/09/23 01/10/23 01/10/23 20:48 05:52 07:43 Anion Gap 11 L Estim Creat Clear Calc 47.4 Estimated GFR 56 POC Glucose 110 142 H Random Glucose 144 H Osmolality Calcium 8.0 L D Magnesium Total Bilirubin 1.2 H Direct Bilirubin 0.4 AST 49 H ALT 53 H Alkaline Phosphatase 58 Total Protein 4.9 L Albumin 2.9 L Urine Osmolality Ur Random Sodium 01/10/23 01/10/23 01/10/23 08:08 08:09 08:09 Anion Gap Estim Creat Clear Calc Estimated GFR POC Glucose Random Glucose Osmolality 275 L Calcium Magnesium Total Bilirubin Direct Bilirubin AST ALT Alkaline Phosphatase Total Protein Albumin Urine Osmolality 693 Ur Random Sodium 31.0 01/10/23 11:11 Anion Gap Estim Creat Clear Calc Estimated GFR POC Glucose 201 H Random Glucose Osmolality Calcium Magnesium Total Bilirubin Direct Bilirubin AST ALT Alkaline Phosphatase Total Protein Albumin Urine Osmolality Ur Random Sodium Assessment and Plan (1) Acute hyponatremia: Status: Acute (2) Acute on chronic kidney failure: Status: Acute (3) Acute urinary retention: Status: Acute Plan This is a 77-year-old male with history of diabetes, atrial fibrillation on Eliquis, recent admission for pneumonia who presents to the emergency department with abdominal pain and confusion found to have urinary retention, PIYUSH, electrolyte abnormalities Acute urinary retention stout placed in ED, drainage of 1.5L of urine will start flomax voiding trial 01/11 outpatient urology follow up PIYUSH on 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 renal function improving with IVF continue gentle IVF hold nephrotoxins follow renal function acute on chronic hyponatremia sodium low on previous admission recently started on HCTZ - will d/c HCTZ sodium corrected for sugar 131 today follow BMP acute hypokalemia improved with replacement check magnesium mild transaminitis no abdominal pain hold statin repeat LFTs in am hypocalcemia calcium 8.9 corrected for low albumin DM SSI, POCs, ADA diet hold glipizide hypothyroidism continue synthroid Chronic HFpEF no on diuretic at baseline paroxysmal atrial fibrillation continue metoprolol, Eliquis HLD Hold statin for mild elevation in LFTs chronic micocytic anemia CBC stable LARISSA cpap dvt ppx - Eliquis code status -full code HCP - dispo - PT eval pending Requires ongoing inpatient hospitalization for management of PIYUSH, urinary retention, close monitoring of electrolytes Time Spent With Patient Time: Total time managing care of this patient today ____ minutes. Quality Stroke Does the patient have a stroke diagnosis?: No VTE Prior VTE?: No VTE Risk Level:: Medical - moderate - high VTE Device Contraindication: Treatment Not Indicated VTE Drug Contraindication: N/A - Med Ordered
--- NOTE | 2023-01-10 14:31 | MHC.CM.PN ---
CM MET WITH PT AND HIS AT BEDSIDE PT LIVES AT HOME AND IS INDEPENDENT WITH CARE HE HAS A CPAP FOR DME AND NO SERVICES PT COMPLETED A HCP TODAY NAMING HIS , LORI, AND SON, GIORGIO, HIS AGENTS PCP: CARLA TOTH DELIVERED CURRENT DCP: HOME NO SERVICES TO TRANSPORT
[2023-01-10 15:45] VITALS: BP 146/75; PULSE 97; RESP 16; TEMP 36.9; O2SAT 95
[2023-01-10] MEDS: 0.9 % Sodium Chloride Flush 3 ML SYRINGE IVFLUSH ×2 (16:07→20:44)
[2023-01-10 16:13] LABS: Glucose, Whole Blood 183 mg/dL (60-115)
[2023-01-10 19:41] VITALS: BP 137/69; PULSE 86; RESP 16; TEMP 37.7; O2SAT 93
[2023-01-10 20:38] LABS: Glucose, Whole Blood 160 mg/dL (60-115)
[2023-01-10] MEDS: Tamsulosin HCL 0.4 MG CAPSULE PO (20:39)
[2023-01-10 22:10] VITALS: PULSE 85; RESP 16; O2SAT 97
[2023-01-11 03:54] VITALS: BP 111/55; PULSE 96; RESP 18; TEMP 37.1; O2SAT 93
[2023-01-11] MEDS: Levothyroxine Sodium 75 MCG TABLET PO (05:21)
[2023-01-11 06:48] LABS: Anion Gap 9 (12-20)
[2023-01-11 06:50] LABS: Alanine Aminotransferase 43 U/L (0-40); Albumin Level 2.8 g/dL (3.5-5.0); Alkaline Phosphatase 59 U/L (39-117); Aspartate Amino Transferase 30 U/L (5-37); Bilirubin Direct 0.4 mg/dL (0.0-0.5); Bilirubin Total 1.3 mg/dL (0.0-1.0); Blood Urea Nitrogen 18 mg/dL (9-16); Calcium 7.7 mg/dL (8.4-10.2); Carbon Dioxide 24 mmol/L (22-29); Chloride 97 mmol/L (96-108); Creatinine Clr Calc Pharmacy 56.4; Estimated Glomerular Filt Rate > 60; Glucose Random 147 mg/dL (60-115); Potassium 3.2 mmol/L (3.3-5.1); Sodium 127 mmol/L (135-145); Total Protein 4.7 g/dL (6.5-8.0)
[2023-01-11 07:05] VITALS: BP 138/69; PULSE 93; RESP 16; TEMP 37; O2SAT 95
[2023-01-11 07:37] LABS: Glucose, Whole Blood 148 mg/dL (60-115)
[2023-01-11] MEDS: Apixaban 5 MG TABLET PO ×2 (08:08→22:37)
[2023-01-11] MEDS: 0.9 % Sodium Chloride Flush 3 ML SYRINGE IVFLUSH ×3 (08:08→22:37)
[2023-01-11] MEDS: Metoprolol Succinate ER 100 MG TAB.ER.24H PO (08:08)
[2023-01-11] MEDS: Potassium Chloride Packet 20 MEQ PACKET 40 MEQ PO (08:42)
--- NOTE | 2023-01-11 09:52 | HO.PM.IMPN ---
Subjective Subjective Date of Service: 01/11/23 Interval History: seen and examined this morning follow up for PIYUSH, urinary retention no overnight events no specific events this morning. no abdominal pain, nausea or vomiting Review of Systems Review of Systems: Yes all other systems are reviewed and are negative Constitutional Constitutional: Denies chills and Denies fever(s) Cardiovascular Cardiovascular: Denies chest pain, Denies palpitations and Denies dyspnea Respiratory Respiratory: Denies cough and Denies dyspnea Gastrointestinal Gastrointestinal: Denies nausea and Denies vomiting Endocrine Endocrine: Denies palpitations Physical Exam Vital Signs: Vital Signs: Last Vital Signs Temp 98.6 F 01/11/23 07:05 Pulse 93 01/11/23 07:05 Resp 16 01/11/23 07:05 BP 138/69 01/11/23 07:05 Pulse Ox 95 01/11/23 07:05 O2 Del Method Room Air 01/11/23 07:05 BMI result Body Mass Index 30.3 Appearing in no acute distress lung sounds are clear to auscultation heart regular rate rhythm, clear S1, S2 positive bowel sounds, abdomen is soft, nontender neuro patient is alert x3, no focal deficits FC in place Objective Data Active Medications Acetaminophen (Acetaminophen 325 Mg Tablet) 650 mg PO Q6H PRN PRN Reason: Pain, Mild (Pain Scale 1-3) Apixaban (Apixaban 5 Mg Tablet) 5 mg PO BID [facility] Last Admin: 01/11/23 08:08 Dose: 5 mg Documented By: ANNALISA Docusate Sodium (Docusate Sodium 100 Mg Capsule) 100 mg PO DAILY PRN PRN Reason: Constipation Glucose (Glucose Gel 15 Gm Gel..Gram.) 15 gm PO Q15M PRN; Protocol PRN Reason: per Hypoglycemia Standing Ord. Dextrose (D10) 250 mls @ 750 mls/hr IV Q15M PRN; Protocol PRN Reason: per Hypoglycemia Standing Ord. Insulin Human Lispro (Insulin Lispro 100 Unit/Ml 3 Ml Vial) 0 unit SUBCUT QIDACHS [facility]; Protocol Last Admin: 01/11/23 07:28 Dose: Not Given Documented By: ANNALISA Non-Admin Reason: No Insulin Coverage Levothyroxine Sodium (Levothyroxine Sodium 75 Mcg Tablet) 75 mcg PO DAILY@0600 [facility] Last Admin: 01/11/23 05:21 Dose: 75 mcg Documented By: LUIS Metoprolol Succinate (Metoprolol Succinate Er 100 Mg Tab.Er.24h) 100 mg PO DAILY [facility]; Protocol Last Admin: 01/11/23 08:08 Dose: 100 mg Documented By: ANNALISA Ondansetron HCl (Ondansetron Hcl 4 Mg/2 Ml Vial) 4 mg IVPUSH Q8H PRN PRN Reason: Nausea and Vomiting Pharmacy Consult (Consult Rx Perform Med Rec) 1 each MISCELLANE ONCE PRN PRN Reason: Consult order Sodium Chloride (0.9 % Sodium Chloride Flush 3 Ml Syringe) 3 ml IVFLUSH QSHIFT [facility] Last Admin: 01/11/23 08:08 Dose: 3 ml Documented By: ANNALISA Tamsulosin HCl (Tamsulosin Hcl 0.4 Mg Capsule) 0.4 mg PO BEDTIME [facility] Last Admin: 01/10/23 20:39 Dose: 0.4 mg Documented By: LUIS Labs 01/09/23 09:47 01/11/23 05:49 Labs: Laboratory Results - last 24 hr 01/10/23 01/10/23 01/10/23 11:11 16:09 20:27 Anion Gap Estim Creat Clear Calc Estimated GFR POC Glucose 201 H 183 H 160 H Random Glucose Calcium Total Bilirubin Direct Bilirubin AST ALT Alkaline Phosphatase Total Protein Albumin 01/11/23 01/11/23 05:49 07:04 Anion Gap 9 L Estim Creat Clear Calc 56.4 Estimated GFR > 60 POC Glucose 148 H Random Glucose 147 H Calcium 7.7 L Total Bilirubin 1.3 H Direct Bilirubin 0.4 AST 30 ALT 43 H Alkaline Phosphatase 59 Total Protein 4.7 L Albumin 2.8 L Assessment and Plan (1) Acute hyponatremia: Status: Acute (2) Acute on chronic kidney failure: Status: Acute (3) Acute urinary retention: Status: Acute Plan This is a 77-year-old male with history of diabetes, atrial fibrillation on Eliquis, recent admission for pneumonia who presents to the emergency department with abdominal pain and confusion found to have urinary retention, PIYUSH, electrolyte abnormalities Acute urinary retention stout placed in ED, drainage of 1.5L of urine continue flomax voiding trial today, dc stout outpatient urology follow up PIYUSH on 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 renal function improving with IVF hold nephrotoxins follow renal function acute on chronic hyponatremia sodium low on previous admission recently started on HCTZ - will d/c HCTZ sodium corrected for sugar 131 today follow BMP Acute hypokalemia replete normal magnesium mild transaminitis no abdominal pain hold statin repeat LFTs improving hypocalcemia calcium 8.9 corrected for low albumin DM SSI, POCs, ADA diet hold glipizide hypothyroidism continue synthroid Chronic HFpEF no on diuretic at baseline paroxysmal atrial fibrillation continue metoprolol, Eliquis HLD Hold statin for mild elevation in LFTs chronic micocytic anemia CBC stable LARISSA cpap dvt ppx - Eliquis Attending Dr. Arita Requires ongoing inpatient hospitalization for management of PIYUSH, urinary retention, close monitoring of electrolytes Time Spent With Patient Time: Total time managing care of this patient today ____ minutes. Quality Stroke Does the patient have a stroke diagnosis?: No VTE Prior VTE?: No VTE Risk Level:: Medical - moderate - high VTE Device Contraindication: Treatment Not Indicated VTE Drug Contraindication: N/A - Med Ordered
--- NOTE | 2023-01-11 09:53 | PC.NURSE ---
F/C removed, pt tolerated well. encouraged to drink fluids.
[2023-01-11] MEDS: Insulin Lispro 100 UNIT/ML 3 ML VIAL SUBCUT ×2 (11:26→22:37)
[2023-01-11 11:36] LABS: Glucose, Whole Blood 171 mg/dL (60-115)
[2023-01-11 15:59] VITALS: BP 138/66; PULSE 73; RESP 20; TEMP 36.2; O2SAT 73
[2023-01-11 16:33] LABS: Glucose, Whole Blood 145 mg/dL (60-115)
[2023-01-11 20:00] VITALS: BP 137/61; PULSE 82; RESP 17; TEMP 36.9; O2SAT 95
[2023-01-11 20:48] LABS: Glucose, Whole Blood 155 mg/dL (60-115)
[2023-01-11] MEDS: Tamsulosin HCL 0.4 MG CAPSULE PO (22:36)
[2023-01-12 03:39] VITALS: BP 115/68; PULSE 66; RESP 18; TEMP 36.3; O2SAT 96
--- NOTE | 2023-01-12 04:52 | PC.NURSE ---
Bladder scan pt for 864ml. Straight scath pt and 900ml of yellow urine was removed. Post bladder scan for 36ml.
[2023-01-12] MEDS: Levothyroxine Sodium 75 MCG TABLET PO (05:34)
[2023-01-12 07:19] VITALS: BP 111/80; PULSE 74; RESP 18; TEMP 36.2; O2SAT 94
[2023-01-12 07:35] LABS: Glucose, Whole Blood 126 mg/dL (60-115)
[2023-01-12] MEDS: Apixaban 5 MG TABLET PO ×2 (08:14→21:07)
[2023-01-12] MEDS: Metoprolol Succinate ER 100 MG TAB.ER.24H PO (08:14)
[2023-01-12] MEDS: 0.9 % Sodium Chloride Flush 3 ML SYRINGE IVFLUSH ×2 (08:14→17:02)
[2023-01-12 08:36] LABS: Anion Gap 10 (12-20); Blood Urea Nitrogen 13 mg/dL (9-16); Calcium 7.9 mg/dL (8.4-10.2); Carbon Dioxide 26 mmol/L (22-29); Chloride 96 mmol/L (96-108); Creatinine Clr Calc Pharmacy 63.7; Estimated Glomerular Filt Rate > 60; Glucose Random 123 mg/dL (60-115); Potassium 3.6 mmol/L (3.3-5.1); Sodium 128 mmol/L (135-145)
--- NOTE | 2023-01-12 10:42 | PC.NURSE ---
F/C placed, tolerated well, draining clear yellow urine.
[2023-01-12 11:32] LABS: Glucose, Whole Blood 146 mg/dL (60-115)
--- NOTE | 2023-01-12 14:35 | HO.PM.IMPN ---
Subjective Subjective Date of Service: 01/12/23 Interval History: seen and examined this morning follow up for PIYUSH, urinary retention no overnight events no specific events this morning. no abdominal pain, nausea or vomiting Review of Systems Review of Systems: Yes all other systems are reviewed and are negative Constitutional Constitutional: Denies chills and Denies fever(s) Cardiovascular Cardiovascular: Denies chest pain, Denies palpitations and Denies dyspnea Respiratory Respiratory: Denies cough and Denies dyspnea Gastrointestinal Gastrointestinal: Denies nausea and Denies vomiting Endocrine Endocrine: Denies palpitations Physical Exam Vital Signs: Vital Signs: Last Vital Signs Temp 97.2 F 01/12/23 07:19 Pulse 74 01/12/23 07:19 Resp 18 01/12/23 07:19 BP 111/80 01/12/23 07:19 Pulse Ox 94 01/12/23 07:19 O2 Del Method Room Air 01/12/23 07:19 BMI result Body Mass Index 30.3 Appearing in no acute distress lung sounds are clear to auscultation heart regular rate rhythm, clear S1, S2 positive bowel sounds, abdomen is soft, nontender neuro patient is alert x3, no focal deficits Objective Data Active Medications Acetaminophen (Acetaminophen 325 Mg Tablet) 650 mg PO Q6H PRN PRN Reason: Pain, Mild (Pain Scale 1-3) Apixaban (Apixaban 5 Mg Tablet) 5 mg PO BID [facility] Last Admin: 01/12/23 08:14 Dose: 5 mg Documented By: ANNALISA Docusate Sodium (Docusate Sodium 100 Mg Capsule) 100 mg PO DAILY PRN PRN Reason: Constipation Glucose (Glucose Gel 15 Gm Gel..Gram.) 15 gm PO Q15M PRN; Protocol PRN Reason: per Hypoglycemia Standing Ord. Dextrose (D10) 250 mls @ 750 mls/hr IV Q15M PRN; Protocol PRN Reason: per Hypoglycemia Standing Ord. Insulin Human Lispro (Insulin Lispro 100 Unit/Ml 3 Ml Vial) 0 unit SUBCUT QIDACHS [facility]; Protocol Last Admin: 01/12/23 11:47 Dose: Not Given Documented By: ANNALISA Non-Admin Reason: No Insulin Coverage Levothyroxine Sodium (Levothyroxine Sodium 75 Mcg Tablet) 75 mcg PO DAILY@0600 [facility] Last Admin: 01/12/23 05:34 Dose: 75 mcg Documented By: HO.NATALSA Metoprolol Succinate (Metoprolol Succinate Er 100 Mg Tab.Er.24h) 100 mg PO DAILY [facility]; Protocol Last Admin: 01/12/23 08:14 Dose: 100 mg Documented By: ANNALISA Ondansetron HCl (Ondansetron Hcl 4 Mg/2 Ml Vial) 4 mg IVPUSH Q8H PRN PRN Reason: Nausea and Vomiting Pharmacy Consult (Consult Rx Perform Med Rec) 1 each MISCELLANE ONCE PRN PRN Reason: Consult order Sodium Chloride (0.9 % Sodium Chloride Flush 3 Ml Syringe) 3 ml IVFLUSH QSHIFT [facility] Last Admin: 01/12/23 08:14 Dose: 3 ml Documented By: ANNALISA Tamsulosin HCl (Tamsulosin Hcl 0.4 Mg Capsule) 0.4 mg PO BEDTIME [facility] Last Admin: 01/11/23 22:36 Dose: 0.4 mg Documented By: KIKI Labs 01/09/23 09:47 01/12/23 08:09 Labs: Laboratory Results - last 24 hr 01/11/23 01/11/23 01/12/23 16:18 20:41 07:22 Anion Gap Estim Creat Clear Calc Estimated GFR POC Glucose 145 H 155 H 126 H Random Glucose Calcium 01/12/23 01/12/23 08:09 11:28 Anion Gap 10 L Estim Creat Clear Calc 63.7 Estimated GFR > 60 POC Glucose 146 H Random Glucose 123 H Calcium 7.9 L Assessment and Plan (1) Acute hyponatremia: Status: Acute (2) Acute on chronic kidney failure: Status: Acute (3) Acute urinary retention: Status: Acute Plan This is a 77-year-old male with history of diabetes, atrial fibrillation on Eliquis, recent admission for pneumonia who presents to the emergency department with abdominal pain and confusion found to have urinary retention, PIYUSH, electrolyte abnormalities Acute urinary retention stout placed in ED, drainage of 1.5L of urine continue flomax voiding trial 01/11/23, unable to void on his own, stout placed again outpatient urology follow up PIYUSH on 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 renal function improving with IVF hold nephrotoxins follow renal function Acute on chronic hyponatremia sodium low on previous admission recently started on HCTZ - will d/c HCTZ follow BMP nephro consult pending Acute hypokalemia replete normal magnesium mild transaminitis no abdominal pain hold statin repeat LFTs improving hypocalcemia calcium 8.9 corrected for low albumin DM SSI, POCs, ADA diet hold glipizide hypothyroidism continue synthroid Chronic HFpEF not on diuretics at baseline paroxysmal atrial fibrillation continue metoprolol, Eliquis HLD Hold statin for mild elevation in LFTs chronic micocytic anemia CBC stable LARISSA cpap dvt ppx - Eliquis Attending Dr. Baxter DISPO home with PT when medically clear Requires ongoing inpatient hospitalization for management of PIYUSH, urinary retention, close monitoring of electrolytes Time Spent With Patient Time: Total time managing care of this patient today ____ minutes. Quality Stroke Does the patient have a stroke diagnosis?: No VTE Prior VTE?: No VTE Risk Level:: Medical - moderate - high VTE Device Contraindication: Treatment Not Indicated VTE Drug Contraindication: N/A - Med Ordered
--- NOTE | 2023-01-12 15:24 | PC.NURSE ---
Patients was educated today and yesterday about patients plan of care. Stated understanding. However again later today she continued to ask about the Plan of Care, stating confusion, although educated, asked provided to see patients .
[2023-01-12 15:36] VITALS: BP 118/66; PULSE 89; RESP 16; TEMP 36.6; O2SAT 94
[2023-01-12 16:22] LABS: Glucose, Whole Blood 217 mg/dL (60-115)
[2023-01-12] MEDS: Insulin Lispro 100 UNIT/ML 3 ML VIAL SUBCUT (17:00)
[2023-01-12 19:49] VITALS: BP 111/60; PULSE 65; RESP 16; TEMP 36.7; O2SAT 95
[2023-01-12 20:45] LABS: Glucose, Whole Blood 92 mg/dL (60-115)
[2023-01-12] MEDS: Tamsulosin HCL 0.4 MG CAPSULE PO (21:13)
--- NOTE | 2023-01-12 21:28 | PC.RT ---
pt refused CPAP for this night, no distress
[2023-01-13] MEDS: 0.9 % Sodium Chloride Flush 3 ML SYRINGE IVFLUSH ×2 (02:47→07:56)
[2023-01-13 04:00] VITALS: BP 101/77; PULSE 78; RESP 18; TEMP 36.3; O2SAT 98
[2023-01-13] MEDS: Levothyroxine Sodium 75 MCG TABLET PO (06:04)
[2023-01-13 06:19] LABS: Anion Gap 9 (12-20); Blood Urea Nitrogen 11 mg/dL (9-16); Calcium 7.7 mg/dL (8.4-10.2); Carbon Dioxide 27 mmol/L (22-29); Chloride 98 mmol/L (96-108); Creatinine Clr Calc Pharmacy 51.9; Estimated Glomerular Filt Rate > 60; Glucose Random 114 mg/dL (60-115); Potassium 3.4 mmol/L (3.3-5.1); Sodium 131 mmol/L (135-145)
[2023-01-13 07:40] VITALS: BP 115/66; PULSE 66; RESP 18; TEMP 36.1; O2SAT 95
[2023-01-13 07:52] LABS: Glucose, Whole Blood 126 mg/dL (60-115)
[2023-01-13 07:54] VITALS: BP 115/66; PULSE 66; RESP 18; TEMP 36.1; O2SAT 95
[2023-01-13] MEDS: Apixaban 5 MG TABLET PO (07:55)
[2023-01-13] MEDS: Metoprolol Succinate ER 100 MG TAB.ER.24H PO (07:55)
--- NOTE | 2023-01-13 10:55 | MHC.CM.PN ---
Addendum entered by Emelia Meek 01/13/23 12:50: All discharge information including the Face 2 Face document, have been sent to agency. Original Note: IMM 01/13/23 Patient is discharged to home with [facility] for P.T. . Patients will provide transport home.
[2023-01-13 11:13] LABS: Glucose, Whole Blood 180 mg/dL (60-115)
[2023-01-13] MEDS: Insulin Lispro 100 UNIT/ML 3 ML VIAL SUBCUT (12:03)
--- NOTE | 2023-01-13 12:04 | P.DS_ITS ---
DS: Providers Provider Date of Service: 01/13/23 Date of admission: 01/09/23 13:47 Date of discharge: 01/13/23 Primary care physician: Carmen Peters MD Consults: 01/12/23 14:37 Consult to Nephrology Routine Consulting Provider: Ashkan Ordonez Reason for consultation: hyponatremia DS: Diagnosis Discharge Diagnosis (1) Acute hyponatremia: Status: Acute (2) Acute on chronic kidney failure: Status: Acute (3) Acute urinary retention: Status: Acute DS: Summary Hospital Course Hospital Course: 77 year male was recently hospitalized for pneumonia who was brought to the emergency department for evaluation of difficulty urinating.? Patient was hospitalized from December 29 to January 02 for treatment of community-acquired pneumonia.? For the past few days he has been having difficulty urinating more than usual.? In addition his reports generalized fatigue and some intermittent confusion.? This morning he was unable to urinate in began having complaints of abdominal distention and pelvic pressure.? In the emergency department workup was significant for acute kidney injury with serum creatinine of 1.66, hyponatremia with sodium of 129, potassium of 3.1.? Patient was bladder scanned and noted to be retaining urine, Rincon catheter was placed and drained 1.5 L of urine.? Patient and his both state that he feels better already.? The patient has some persistent cough since previous admission although this is improving.? Repeat chest x-ray obtained showing improving bilateral airspace disease.? He received a L of normal saline and the decision was made to admit him to the hospital for further management of PIYUSH, urinary retention and electrolyte abnormalities. Hospital COurse Patient continues with urinary catheter during hospitalization without issue. Flomax was added and HS. His acute kidney injury normalized as well as his sodium. His hydrochlorothiazide will be stopped and can be restarted at the discretion of his PCP. He was seen by Physical therapy and found to be acceptable for home with services with a walker. At this point in time he is medically acceptable for discharge and will be discharged to his house. Time Spent with Patient Time attestation: Total time managing care of this patient today ____ minutes. Discharge coordination time: Greater than 30 minutes Quality: Safe Use of Opioids Does Pt have an Active Cancer Diagnosis on the Problem List?: No Quality: Stroke Does the patient have a stroke diagnosis?: No Physical Exam Vital Signs: Vital Signs: Last Vital Signs Temp 96.9 F 01/13/23 07:54 Pulse 66 01/13/23 07:54 Resp 18 01/13/23 07:54 BP 115/66 01/13/23 07:54 Pulse Ox 95 01/13/23 07:54 O2 Del Method Room Air 01/13/23 07:54 BMI result Body Mass Index 30.3 Const: Other: No acute issues Resp: Other: Clear to auscultation bilaterally no rales rhonchi or wheezes Cardio: Other: No S4; positive S1-S2; no S3 murmurs rubs or gallops GI: Other: Soft nontender nondistended normoactive bowel sounds : Other: Rincon in place draining yellow urine Extrem: Other: No edema bilaterally DS: Data Data Completed and Pending Completed studies during hospitalization [Text1]: Procedures Assistance with Respiratory Ventilation, Less than 24 Consecutive Hours, Continu ous Positive Airway Pressure (12/05/21) Introduction of Remdesivir Anti-infective into Peripheral Vein, Percutaneous Approach, [employer] (12/05/21) Labs on day of discharge: Laboratory Results - last 24 hr 01/12/23 01/12/23 01/13/23 16:08 20:40 05:42 Sodium 131 L Potassium 3.4 Chloride 98 Carbon Dioxide 27 Anion Gap 9 L BUN 11 Creatinine 1.14 Estim Creat Clear Calc 51.9 Estimated GFR > 60 POC Glucose 217 H 92 Random Glucose 114 Calcium 7.7 L 01/13/23 01/13/23 07:47 11:09 Sodium Potassium Chloride Carbon Dioxide Anion Gap BUN Creatinine Estim Creat Clear Calc Estimated GFR POC Glucose 126 H 180 H Random Glucose Calcium Discharge Plan Discharge Anticipated Discharge Date/Time: 01/13/23 11:55 Patient Disposition: Home Health Service Discharge Diagnosis: Acute urinary retention Referrals: Po,Carmen Joshi MD [Primary Care Provider] - 1 Week Discharge Medications: New tamsulosin 0.4 mg Capsule 0.4 mg PO BEDTIME Qty: 30 0RF Continued metoprolol succinate 100 mg tablet extended release 24 hr 100 mg PO DAILY 90 Days Qty: 90 2RF atorvastatin 40 mg tablet 40 mg PO DAILY Qty: 90 3RF cholecalciferol (vitamin D3) [Vitamin D3] 25 mcg (1,000 unit) Tablet 25 mcg PO DAILY acetaminophen 325 mg Tablet 650 mg PO Q6H PRN (Reason: Pain) levothyroxine 75 mcg tablet 75 mcg PO DAILY@0600 glipizide 5 mg tablet extended release 24hr 5 mg PO DAILY Qty: 90 2RF Eliquis 5 mg tablet 5 mg PO BID 90 Days Qty: 180 3RF Discontinued doxycycline hyclate 100 mg tablet 100 mg PO BID Qty: 14 0RF Rx Instructions: HAS 1 DOSE REMAININ01/09/23@2100 amoxicillin-pot clavulanate 875-125 mg tablet 1 tab PO BID Qty: 14 0RF Rx Instructions: HAS 1 DOSE REMAININ01/09/23@2100 hydrochlorothiazide 12.5 mg tablet 12.5 mg PO DAILY 90 Days Qty: 90 3RF Discharge Orders: Discharge Order (Routine); Ordered 01/13/23 Ordered By: Zaid Glover Diet: Advance to usual diet Activity on Discharge: As tolerated Stand Alone Forms: Patient Portal Discharge page Care Plan Goals: Keep Rincon in place. Dr. Perez's office will call you for follow-up appointment Health Concerns: Flomax added to your regimen at bedtime. Hydrochlorothiazide has been held any acute resume it at the discretion of your primary care Plan of Treatment: Continue all pre-hospital medications Assessment: See discharge summary
--- NOTE | 2023-01-13 12:09 | W.MHC.F2F ---
Service Date Service Date: 01/13/23 Encounter Date of encounter: 01/13/23 Encounter: Acute hospitalization Reasons for Services Signs and symptoms assessed: Follow-up urinary retention as managed by [facility]. Reason for group home: medication management and teach disease management Reason for physical therapy: home safety and mobility, therapeutic exercises and gait/transfer training Homebound: Leaving the home is medically contraindicated at this time without the asist of a device and/or another person due th the listed conditions above and below. Reason homebound: unsteady gait / fall risk and poor balance / fall risk Certification: Based on the above findings, I certify that this patient is confined to the home and needs intermittent group home care, physical therapy and/or speech therapy, or continues to need occupational therapy. The patient is under my care, and I have initiated the establishment of the plan of care. The patient will be followed by a physician who will periodically review the plan of care. Time Spent With Patient Time: Total time managing care of this patient today ____ minutes.
== END 2023-01-13 14:03 | disposition home health service (06) | DRG 699 ==
LOC: HO.ED 12:14 → HO.EDOVER 13:52 → HO.S3 14:26
PROVIDERS: Nurse Practitioner Acute Care; Admitting Provider Physician Assistant Medical; Emergency Provider Emergency Medicine; PCP Internal Medicine; Visit Provider Hospitalist
DX: N13.9 Obstructive and reflux uropathy, unspecified (principal); E87.1 Hypo-osmolality and hyponatremia; I50.32 Chronic diastolic (congestive) heart failure; N17.9 Acute kidney failure, unspecified; G47.33 Obstructive sleep apnea (adult) (pediatric); E11.22 Type 2 diabetes mellitus with diabetic chronic kidney disease; E78.00 Pure hypercholesterolemia, unspecified; D50.9 Iron deficiency anemia, unspecified; D63.1 Anemia in chronic kidney disease; I48.0 Paroxysmal atrial fibrillation; E83.51 Hypocalcemia; N18.30 Chronic kidney disease, stage 3 unspecified; E87.6 Hypokalemia; E03.9 Hypothyroidism, unspecified; Z79.01 Long term (current) use of anticoagulants; Z79.84 Long term (current) use of oral hypoglycemic drugs; Z79.890 Hormone replacement therapy; Z79.899 Other long term (current) drug therapy
CPT/HCPCS: 36415; 71045; 80048; 80076; 81001; 81003; 82947; 83735; 83930; 83935; 84300; 85025; 94660; 97116; 97161; 99284; C1758

== ENCOUNTER 2023-01-22 09:41 | Inpatient (IN) | payer MEDICARE, SELFPAY ==
--- NOTE | ~2023-01-22 | US_ITS ---
EXAMINATION: US SCROTUM CLINICAL INFORMATION: Scrotal pain and swelling. COMPARISON: None available. TECHNIQUE: A sonogram of the scrotum was performed assessing garnica-scale appearance and color Doppler flow. Spectral Doppler analysis of the arterial and venous flow were performed in the testes bilaterally. FINDINGS: RIGHT: Right testicle measures 4.0 x 2.4 x 2.2 cm, volume 11.1 mL. No focal testicular parenchymal lesions are visualized. Spectral Doppler analysis of the arterial and venous flow is normal in the right testis. Right epididymal head is normal in size. There is mild tubular ectasia. There are multiple small epididymal cysts. The largest cyst measures 0.3 x 0.6 x 0.5 cm. Calcifications are seen in the right epididymal head measuring 0.3 x 0.3 x 0.2 cm. No right hydrocele or varicocele is seen. Right epididymal Doppler flow is normal. LEFT: Left testicle measures 3.7 x 2.4 x 2.7 cm cm, volume 13.9 mL. There are several echogenic calcifications lateral to the testicle with largest measuring 0.5 x 0.4 x 0.3 cm. No focal testicular parenchymal lesions are visualized. Spectral Doppler analysis of the arterial and venous flow is normal in the left testis. Left epididymal head is normal in size. Small left epididymal head cyst is seen measuring 0.3 x 0.3 x 0.3 cm. No left hydrocele or varicocele is seen. Left epididymal Doppler flow is normal. US/US scrotum IMPRESSION: Unremarkable ultrasound scrotum. Bilateral epididymal head cysts. There is right mild epididymal tubular ectasia. Several echogenic calcifications lateral to the left testis of unknown etiology.
--- NOTE | ~2023-01-22 | US_ITS ---
EXAMINATION: US SCROTUM CLINICAL INFORMATION: Scrotal pain and swelling. COMPARISON: None available. TECHNIQUE: A sonogram of the scrotum was performed assessing garnica-scale appearance and color Doppler flow. Spectral Doppler analysis of the arterial and venous flow were performed in the testes bilaterally. FINDINGS: RIGHT: Right testicle measures 4.0 x 2.4 x 2.2 cm, volume 11.1 mL. No focal testicular parenchymal lesions are visualized. Spectral Doppler analysis of the arterial and venous flow is normal in the right testis. Right epididymal head is normal in size. There is mild tubular ectasia. There are multiple small epididymal cysts. The largest cyst measures 0.3 x 0.6 x 0.5 cm. Calcifications are seen in the right epididymal head measuring 0.3 x 0.3 x 0.2 cm. No right hydrocele or varicocele is seen. Right epididymal Doppler flow is normal. LEFT: Left testicle measures 3.7 x 2.4 x 2.7 cm cm, volume 13.9 mL. There are several echogenic calcifications lateral to the testicle with largest measuring 0.5 x 0.4 x 0.3 cm. No focal testicular parenchymal lesions are visualized. Spectral Doppler analysis of the arterial and venous flow is normal in the left testis. Left epididymal head is normal in size. Small left epididymal head cyst is seen measuring 0.3 x 0.3 x 0.3 cm. No left hydrocele or varicocele is seen. Left epididymal Doppler flow is normal. US/US scrotum doppler IMPRESSION: Unremarkable ultrasound scrotum. Bilateral epididymal head cysts. There is right mild epididymal tubular ectasia. Several echogenic calcifications lateral to the left testis of unknown etiology.
--- NOTE | ~2023-01-22 | CT_ITS ---
EXAMINATION: CT PELVIS WITH CONTRAST CLINICAL INFORMATION: Pain and swelling. Rule out Lesa's gangrene COMPARISON: None available. TECHNIQUE: Helical scanning was performed with submillimeter collimation through the pelvis with the use of oral contrast and during bolus intravenous injection of 85 mL of Omnipaque 350 intravenous contrast. Sagittal and coronal multiplanar 2-D reconstructions were obtained. This CT examination was performed using dose optimization techniques as appropriate, variously including the following: *Automated exposure control *Adjustment of mA and/or kV according to patient size (this includes techniques or standardized protocols for targeted exams where dose is matched to indication/reason for exam; i.e. extremities or head) *Use of iterative reconstruction technique DLP: 2 a 5 mGy-cm FINDINGS: There is no abnormal air in the lower pelvis/perineum to suggest Lesa's gangrene. There is a Rincon catheter in the bladder. There is a small amount of fluid and air in the bladder. There is diffuse soft tissue swelling of the penis. There is diverticulosis of the colon. No evidence of diverticulitis. No ascites or free air. Atherosclerotic disease. No hernia. Review at bone windows demonstrates degenerative changes of the spine and hips. CT/CT pelvis w IV con Impression: No evidence of Lesa's gangrene. Diffuse soft tissue swelling of the penis. Rincon catheter in the bladder. Small amount of air and fluid in the bladder. Diverticulosis of the colon.
[2023-01-22 09:49] VITALS: PULSE 81; RESP 16; TEMP 36.6; O2SAT 97; BMI 28.3
--- NOTE | 2023-01-22 10:00 | ED.MALEGU ---
HPI - Male Genitourinary General Chief complaint: Urogenital-Male Stated complaint: ?infected catheter Time Seen by Provider: 01/22/23 10:02 Source: patient and family () Mode of arrival: ambulatory Limitations: no limitations History of Present Illness HPI Narrative: Patient is a 77 year old male with history of CKD, CHF, non-hodgkin lymphoma, diabetes presenting with 5 days of scrotal and penile pain after urinary catheter insertion on 01/12 . He states that he had a catheter inserted at this time due to an PIYUSH and was discharged with instructions to follow up with nephrology, however patient and his have not yet been able to set up this appointment. He reports significant pain in both sides of his scrotum, penis, as well as a white pus-like discharge from the catheter site, pain and swelling rapidly progressing . He denies additional symptoms at this time including fever, chills. chest pain, palpitations, abdominal pain, nausea, vomiting, changes in bowel habits, confusion, dizziness, lightheadedness. Related Data Home Medications Medication Instructions Recorded Confirmed cholecalciferol (vitamin D3) 25 25 mcg PO DAILY 12/06/21 01/09/23 mcg (1,000 unit) tablet (Vitamin D3) acetaminophen 325 mg tablet 650 mg PO Q6H PRN Pain 12/29/22 01/09/23 levothyroxine 75 mcg tablet 75 mcg PO DAILY@0600 01/09/23 01/09/23 Previous Rx's Medication Instructions Recorded metoprolol succinate 100 mg 100 mg PO DAILY 90 days #90 tabs 06/14/22 tablet,extended release 24 hr atorvastatin 40 mg tablet 40 mg PO DAILY #90 tabs 10/12/22 glipizide 5 mg tablet, extended 5 mg PO DAILY #90 tabs 10/21/22 release 24 hr tamsulosin 0.4 mg capsule 0.4 mg PO BEDTIME #30 caps 01/13/23 escitalopram oxalate 10 mg tablet 10 mg PO DAILY #30 tabs 01/15/23 walker (Ultra-Light Rollator [facility]) #1 ea 01/15/23 apixaban 5 mg tablet (Eliquis) 5 mg PO BID #180 tabs 01/18/23 cephalexin 500 mg tablet 500 mg PO Q6H 10 days #40 tabs 01/22/23 doxycycline hyclate 100 mg capsule 100 mg PO BID 10 days #20 caps 01/22/23 prednisone 20 mg tablet 20 mg PO DAILY 5 days #5 tabs 01/22/23 Allergies Allergy/AdvReac Type Severity Reaction Status Date / Time gabapentin AdvReac Intermediate lethargy Verified 01/15/23 08:56 lisinopril AdvReac Intermediate Cough Verified 01/15/23 08:56 metformin AdvReac Intermediate lethargy Verified 01/15/23 08:56 Review of Systems Review of Systems: Constitutional : No Weight loss, No Fever, No Chills, No Fatigue, No Malaise Cardiovascular : No Chest Pain, No SOB, No Dyspnea on Exertion, No Orthopnea, No Edema, No Palpitations Respiratory : No Cough, No Sputum, No Wheezing Gastrointestinal : No Nausea, No Vomiting, No Diarrhea, No Constipation, No abdominal Pain, No Hematochezia, No Melena Genitourinary : + penile discharge, + scrotal swelling, + scrotal pain, +penile pain, No Dysuria, No Urinary Frequency, No Hematuria, Musculoskeletal : No joint pain, No Myalgias, No Joint Swelling Skin : No Skin Lesions, No rash Neuro : No Weakness, No Numbness, No Dizziness, No Headache Psych : No Anxiety/Panic, No Depression All other systems reviewed and are negative Yes all other systems are reviewed and are negative [facility] Past Medical History Attestation statement: The following information was validated with the patient. Source: old records reviewed and nursing notes reviewed Medical History (HFpEF) heart failure with preserved ejection fraction Anxiety and depression CHF (congestive heart failure) CKD (chronic kidney disease) stage 3, GFR 30-59 ml/min Hypercholesterolemia Non Hodgkin's lymphoma LARISSA (obstructive sleep apnea) PAF (paroxysmal atrial fibrillation) Peptic ulcer disease Thrombocytopenia Type 2 diabetes mellitus with hyperglycemia Type 2 diabetes mellitus with unspecified complications Vitamin D deficiency Surgical History H/O colonoscopy H/O lymph node biopsy History of esophagogastroduodenoscopy (EGD) History of shoulder surgery Hx of cataract extraction Family History Family History Father Lung cancer Mother Breast cancer Sister Breast cancer Brother Substance use disorder Sister No problems noted. Son No problems noted. Daughter No problems noted. Social History Social History Household Members: Spouse Housing: House Are you a primary nonfarm animal caretaker to a significant other at home: No Do you presently have visiting nurse or other home services: No Alcohol intake: never Patient Tobacco Use Status: Never used Tobacco Smoked in Last 30 Days: No e-Cigarette/Vaping Use: Never Used Second Hand Smoke Exposure: No Use of substances other than those prescribed or required for medical reasons: No Advance Directives: Yes Advance Directives on File: Yes Advance Directives Date on File: 12/19/21 service: No Current occupational status: retired Cognitive needs: Yes (Walker, cane) Hearing needs: No Vision needs: Yes Physical Exam Vital Signs: Vital Signs: Last Vital Signs Temp 98.2 F 01/22/23 10:11 Pulse 63 01/22/23 12:34 Resp 17 01/22/23 12:34 BP 118/58 L 01/22/23 12:34 Pulse Ox 97 01/22/23 12:34 O2 Del Method Room Air 01/22/23 12:34 BMI result Body Mass Index 28.3 vss Appearance: Alert.? Oriented X3.? No acute distress.? Head: Normocephalic, atraumatic, no step-offs or deformities Eyes: Pupils equal, round and reactive to light.? CVS: Normal heart rate and rhythm.? Pulses normal.? Respiratory: No respiratory distress.? Breath sounds normal.? Abdomen: Soft and nontender.? Sensitive: Erythema and TTP to entire scrotum and penile shaft. No appreciated d/c from meatus at this time. Patient very uncomfortable. Spike tech at bedside. Skin: Skin warm and dry.? Normal skin color.? Normal skin turgor.? Extremities: No lower extremity edema.? No calf ttp. 5/5 strength to bilateral upper and lower extremities Back: No midline tenderness, no C-spine tenderness, full range of motion, no CVA tenderness bilaterally Neuro: Oriented X 3.? No motor deficit.? No sensory deficit. CN 2-12 intact Course Reevaluation(s) Reevaluation #1: CBC appears to be around patient's baseline within normocytic anemia. Chemistry unremarkable. Urine, lactic, inflammatory markers pending. Reached out to Dr. Perez waiting for call back Time: 11:28 Reevaluation #2: Spoke to Dr. Perez likely fungal in nature. Recommends diflucan & tx for cellulitis if exam is concerning for this ( doxy & kelfex) , catheter should be in place for a month and he should follow up with urology. Low suspicion for fourniers. Time: 11:31 Reevaluation #3: I did order lactic acid on this patient was elevated at 3.2, at this time infection suspected vancomycin and Zosyn ordered for broad coverage, fluids have also been given. ESR and CRP also elevated. I did report these results to urology who recommends hospital admission. Will give fluids as well. Patient aware plan. Scrotal ultrasound pending. Time: 12:47 Medications Administered Discontinued Medications Generic Name Dose Route Start Last Admin Trade Name Freq PRN Reason Stop Dose Admin Fluconazole 150 mg 01/22/23 11:33 01/22/23 11:53 Fluconazole 150 Mg Tablet PO 01/22/23 11:34 150 mg ONCE ONE Administration Medical Decision Making Medical Decision Making [facility] Narrative: 77-year-old male presents with significant pain and swelling to genital region over the past 5 days worsening. Physical exam significant for Erythema and TTP to entire scrotum and penile shaft. No appreciated d/c from meatus at this time. Patient very uncomfortable. Concerns for scrotal cellulitis versus epididymitis versus orchitis versus Lesa gangrene vs fungal rash . Will rule out hydroceles, torsion although unlikely. Plan labs, imaging. Will reach out to Urology Differential Diagnosis Differential Diagnoses: The differential diagnosis associated with the presentation includes Concerns for scrotal cellulitis versus epididymitis versus orchitis versus Lesa gangrene vs fungal rash. Will rule out hydroceles, torsion although unlikely. Admission/Observation Consideration of admission/observation: Escalation of care including admission/observation considered possible admission Consult Healthcare Provider Management of the patient was discussed with: Hospitalist and Hearing Therapy Director (urology ) Lab Data [facility] Lab Attestation statement: I reviewed the patient's lab results. 01/22/23 10:46 01/22/23 10:46 Labs: Lab Results 01/22/23 01/22/23 01/22/23 Range/Units 10:46 10:46 10:46 WBC 4.6 L (4.8-10.8) X10*3/uL RBC 4.06 L (4.60-5.80) X10*6/uL Hgb 10.7 L (14.0-18.0) g/dl Hct 33.2 L (42.0-52.0) % MCV 81.8 (80.0-98.0) fL MCH 26.4 L (27.0-33.0) pg MCHC 32.2 (31.0-36.0) g/dl RDW 16.3 H (11.0-16.0) % Plt Count 165 (160-400) X10*3/uL MPV 9.3 L (9.4-12.4) fL Immature Gran % (Auto) 0.6 H (0.0-0.4) % Neut % (Auto) 66.2 (45-73) % Lymph % (Auto) 20.6 (20-40) % Wilcox % (Auto) 10.0 (2-11) % Eos % (Auto) 2.4 (0-4) % Baso % (Auto) 0.2 (0-2) % Lymph # (Auto) 1.0 L (1.2-4.9) X10*3/uL Wilcox # (Auto) 0.5 (0.1-1.2) X10*3/uL Eos # (Auto) 0.1 (0.0-0.4) X10*3/uL Baso # (Auto) 0.0 (0.0-0.2) X10*3/uL Abs Immat Gran (auto) 0.03 (0.00-0.03) X10*3/uL Absolute Neuts (auto) 3.1 (2.0-8.3) x10*3/uL Absolute Nucleated RBC 0.000 (0.0-0.012) X10*3/uL Nucleated RBC % (auto) 0.0 (0.0-0.2) /100WBC ESR 28 H (0-15) MM/HR Sodium 137 (135-145) mmol/L Potassium 4.1 D (3.3-5.1) mmol/L Chloride 101 (96-108) mmol/L Carbon Dioxide 25 (22-29) mmol/L Anion Gap 15 (12-20) BUN 11 (9-16) mg/dL Creatinine 1.24 (0.5-1.4) mg/dL Estim Creat Clear Calc 46.2 Estimated GFR 56 Random Glucose 144 H (60-115) mg/dL Lactic Acid (0.5-2.0) mmol/L Calcium 9.1 D (8.4-10.2) mg/dL Magnesium 2.1 (1.6-2.6) mg/dL Total Bilirubin 1.0 (0.0-1.0) mg/dL AST 15 (5-37) U/L ALT 14 (0-40) U/L Alkaline Phosphatase 90 (39-117) U/L Total Creatine Kinase (38-174) U/L C-Reactive Protein (< or = 0.50) mg/dL Total Protein 6.1 L (6.5-8.0) g/dL Albumin 3.5 (3.5-5.0) g/dL Urine Color Urine Appearance Urine pH (5.0-9.0) Ur Specific [place] (1.005-1.025) Urine Protein (Neg-Trace) mg/dL Urine Glucose (UA) (Negative) mg/dL Urine Ketones (Negative) mg/dL Urine Blood (Negative) Urine Nitrite (Negative) Ur Leukocyte Esterase (Negative) Urine RBC (0-2) /HPF Urine WBC (0-5) /HPF Ur Squamous Epith Cells (0-2) /HPF Urine Bacteria (None Seen) Hyaline Casts (0-2) /LPF 01/22/23 01/22/23 01/22/23 Range/Units 11:17 12:04 12:04 WBC (4.8-10.8) X10*3/uL RBC (4.60-5.80) X10*6/uL Hgb (14.0-18.0) g/dl Hct (42.0-52.0) % MCV (80.0-98.0) fL MCH (27.0-33.0) pg MCHC (31.0-36.0) g/dl RDW (11.0-16.0) % Plt Count (160-400) X10*3/uL MPV (9.4-12.4) fL Immature Gran % (Auto) (0.0-0.4) % Neut % (Auto) (45-73) % Lymph % (Auto) (20-40) % Wilcox % (Auto) (2-11) % Eos % (Auto) (0-4) % Baso % (Auto) (0-2) % Lymph # (Auto) (1.2-4.9) X10*3/uL Wilcox # (Auto) (0.1-1.2) X10*3/uL Eos # (Auto) (0.0-0.4) X10*3/uL Baso # (Auto) (0.0-0.2) X10*3/uL Abs Immat Gran (auto) (0.00-0.03) X10*3/uL Absolute Neuts (auto) (2.0-8.3) x10*3/uL Absolute Nucleated RBC (0.0-0.012) X10*3/uL Nucleated RBC % (auto) (0.0-0.2) /100WBC ESR (0-15) MM/HR Sodium (135-145) mmol/L Potassium (3.3-5.1) mmol/L Chloride (96-108) mmol/L Carbon Dioxide (22-29) mmol/L Anion Gap (12-20) BUN (9-16) mg/dL Creatinine (0.5-1.4) mg/dL Estim Creat Clear Calc Estimated GFR Random Glucose (60-115) mg/dL Lactic Acid 3.0 H* (0.5-2.0) mmol/L Calcium (8.4-10.2) mg/dL Magnesium (1.6-2.6) mg/dL Total Bilirubin (0.0-1.0) mg/dL AST (5-37) U/L ALT (0-40) U/L Alkaline Phosphatase (39-117) U/L Total Creatine Kinase 28 L (38-174) U/L C-Reactive Protein 1.84 H (< or = 0.50) mg/dL Total Protein (6.5-8.0) g/dL Albumin (3.5-5.0) g/dL Urine Color Yellow Urine Appearance Clear Urine pH 5.5 (5.0-9.0) Ur Specific [place] 1.020 (1.005-1.025) Urine Protein 30 (1+) H (Neg-Trace) mg/dL Urine Glucose (UA) Negative (Negative) mg/dL Urine Ketones Negative (Negative) mg/dL Urine Blood Small (1+) H (Negative) Urine Nitrite Negative (Negative) Ur Leukocyte Esterase Small (1+) H (Negative) Urine RBC 6-10 H (0-2) /HPF Urine WBC 21-50 H (0-5) /HPF Ur Squamous Epith Cells 3-5 (0-2) /HPF Urine Bacteria 4+ (None Seen) Hyaline Casts 3-5 (0-2) /LPF Independent Interpretation I performed an independent interpretation of an: Ultrasound Radiology Impression Discussion of test interpretation with radiology: I have reviewed the radiologist's reading. External Record Review External record reviewed: Inpatient record, Office record, Outpatient record, Prior outpatient labs, Prior outpatient radiology, Primary care record and Outside ED record Tests considered The following testing was considered but not selected: CT abdomen pelvis with contrast Chronic Conditions Patient?s care impacted by: Diabetes and Hypertension Core Measures AMI core measures followed: Yes Measure exclusions: not indicated Critical Care Time Critical Care Time Critical Care Time: Yes Total Critical Care Time: 35 Attestation: I attest to this time spent taking care of the patient, obtaining history, physical, reviewing labs, imaging, speaking to my attending, speaking to specialist. Discharge Plan Discharge Clinical Impression: Cellulitis of scrotum, Fungal infection, Acute UTI Patient Disposition: Home, Self-Care Instructions: Skin Yeast Infection (ED) Additional Instructions: Take your medications as prescribed. If you were prescribed antibiotics today, it is important that you take your medication to their entirety, do not skip any doses, do not finish them early. Follow-up with your primary care provider this week. Return to the emergency department with new or worsening symptoms. Such as fevers, chills, chest pain, shortness of breath, nausea, vomiting, dizziness, headache, vision changes, lethargy, worsening redness or swelling, worsening discharge In case of emergency call 911 Your given your 1st dose of fluconazole today here in the emergency department, repeat dose in 2-3 days if needed, do this for a maximum of 3 doses and please follow-up with urology. It is likely that your [facility] catheter will stay in for about 1 month. Doxycycline and Keflex or antibiotics that will treat for a UTI & overlying skin infection, please take this as prescribed, doxycycline can cause skin sensitivity and direct sunlight, going outside please wear hats. Prescriptions: New doxycycline hyclate 100 mg capsule 100 mg PO BID 10 Days Qty: 20 0RF cephalexin 500 mg tablet 500 mg PO Q6H 10 Days Qty: 40 0RF prednisone 20 mg tablet 20 mg PO DAILY 5 Days Qty: 5 0RF No Action metoprolol succinate 100 mg tablet extended release 24 hr 100 mg PO DAILY 90 Days Qty: 90 2RF atorvastatin 40 mg tablet 40 mg PO DAILY Qty: 90 3RF Eliquis 5 mg tablet 5 mg PO BID Qty: 180 3RF cholecalciferol (vitamin D3) [Vitamin D3] 25 mcg (1,000 unit) Tablet 25 mcg PO DAILY acetaminophen 325 mg Tablet 650 mg PO Q6H PRN (Reason: Pain) levothyroxine 75 mcg tablet 75 mcg PO DAILY@0600 tamsulosin 0.4 mg Capsule 0.4 mg PO BEDTIME Qty: 30 0RF glipizide 5 mg tablet extended release 24hr 5 mg PO DAILY Qty: 90 2RF (DME) Ultra-Light Rollator [facility] See Rx Instructions .Route Qty: 1 0RF Rx Instructions: As directed escitalopram oxalate 10 mg tablet 10 mg PO DAILY Qty: 30 0RF Referrals: [facility] [Provider Group] - 1 day Po,Carmen Joshi MD [Primary Care Provider] - 2 days
[2023-01-22 10:11] VITALS: BP 126/76; PULSE 59; RESP 17; TEMP 36.8; O2SAT 97
[2023-01-22 10:51] LABS: MANUAL DIFF FLAG NO
[2023-01-22 10:53] LABS: Basophils Percent Auto 0.2 % (0-2); Eosinophils Absolute Auto 0.1 X10*3/uL (0.0-0.4); Eosinophils Percent Auto 2.4 % (0-4); Hematocrit 33.2 % (42.0-52.0); Hemoglobin 10.7 g/dl (14.0-18.0); Imm Gran Abs Auto 0.03 X10*3/uL (0.00-0.03); Imm Gran Pct Auto 0.6 % (0.0-0.4); Lymphocytes Percent Auto 20.6 % (20-40); Mean Corpuscular HGB Conc 32.2 g/dl (31.0-36.0); Mean Corpuscular Hemoglobin 26.4 pg (27.0-33.0); Mean Corpuscular Volume 81.8 fL (80.0-98.0); Mean Platelet Volume 9.3 fL (9.4-12.4); Monocytes Absolute Auto 0.5 X10*3/uL (0.1-1.2); Neutrophils Absolute Auto 3.1 x10*3/uL (2.0-8.3); Neutrophils Percent Auto 66.2 % (45-73); Platelet Count 165 X10*3/uL (160-400); Red Blood Count 4.06 X10*6/uL (4.60-5.80); Red Cell Distribution Width 16.3 % (11.0-16.0); White Blood Count 4.6 X10*3/uL (4.8-10.8)
[2023-01-22 11:17] LABS: Alanine Aminotransferase 14 U/L (0-40); Albumin Level 3.5 g/dL (3.5-5.0); Alkaline Phosphatase 90 U/L (39-117); Anion Gap 15 (12-20); Aspartate Amino Transferase 15 U/L (5-37); Blood Urea Nitrogen 11 mg/dL (9-16); Calcium 9.1 mg/dL (8.4-10.2); Carbon Dioxide 25 mmol/L (22-29); Chloride 101 mmol/L (96-108); Creatinine Clr Calc Pharmacy 46.2; Estimated Glomerular Filt Rate 56; Glucose Random 144 mg/dL (60-115); Magnesium 2.1 mg/dL (1.6-2.6); Potassium 4.1 mmol/L (3.3-5.1); Sodium 137 mmol/L (135-145); Total Protein 6.1 g/dL (6.5-8.0)
[2023-01-22 11:30] LABS: Appearance Urine Clear; Color Urine Yellow; Glucose Urine UA Negative (Negative); Leukocyte Esterase Urine Small (1+) (Negative); Nitrite Urine Negative (Negative); PH 5.5 (5.0-9.0); UMIC TRIGGER UACC YES; Urine Blood Small (1+) (Negative); Urine Ketones Negative (Negative); Urine Protein 30 (1+) mg/dL (Neg-Trace)
[2023-01-22 11:35] LABS: Bacteria Urine 4+ (None Seen); UACC Culture Trigger YES; WBC Urine 21-50 /HPF (0-5)
[2023-01-22] MEDS: Fluconazole 150 MG TABLET PO (11:53)
[2023-01-22 11:59] LABS: Erythrocyte Sedimentation Rate 28 MM/HR (0-15)
[2023-01-22 12:34] VITALS: BP 118/58; PULSE 63; RESP 17; O2SAT 97
[2023-01-22 12:35] LABS: C Reactive Protein 1.84 mg/dL (< or = 0.50)
[2023-01-22] MEDS: iohexoL 350 MG/ML 100 ML INFUS..BTL IV (13:24)
[2023-01-22] MEDS: 0.9 % Sodium Chloride 1,000 ML 999 ML IV ×2 (13:32→14:40)
[2023-01-22] MEDS: Piperacillin Sodium/Tazobactam 3.375 GM in 0.9 % Sodium Chloride 50 ML IV (13:32)
[2023-01-22 14:09] LABS: Reflex Lactate? Lactic Acid Added
[2023-01-22] MEDS: vancomycin/NS 2,000 MG/500 ML PLAST..BAG 250 MG IV (14:46)
[2023-01-22 14:50] LABS: ~Lactic Acid-LAB USE ONLY 1.9 mmol/L (0.5-2.0)
[2023-01-22 15:16] VITALS: BP 119/56; PULSE 73; RESP 15; O2SAT 97
--- NOTE | 2023-01-22 15:56 | PHA.MEDREC ---
Pharmacy Consult ? Medication Reconciliation Pharmacy has completed the medication reconciliation. Spoke to patient with Karla at bedside to confirm meds.
--- NOTE | 2023-01-22 16:09 | PM.IMHP ---
History of Present Illness Date of Service: 01/22/23 Chief Complaint: scrotal pain and redness A 77 years old male with Hx of CKD, CHF, Lymphoma, DM among others presenting with penile pain and erythema for the last 3-5 days after placement of urine catheter during recent hospital stay 10 days ago. denies fever or chills but report pain in the area with no itching. developed swelling in the penis with reported drainage. In ED found to have elevated lactic acid level. Admitted for further eval and treatment. Review of Systems Review of Systems: No fever, chills but reports generalized weakness No chest pain, palpitation No shortness of breath or coughing No abdominal pain, nausea or vomiting drainage around stout, swollen penis No any rash or wounds PMFSH Medical History (HFpEF) heart failure with preserved ejection fraction Anxiety and depression CHF (congestive heart failure) CKD (chronic kidney disease) stage 3, GFR 30-59 ml/min Hypercholesterolemia Non Hodgkin's lymphoma LARISSA (obstructive sleep apnea) PAF (paroxysmal atrial fibrillation) Peptic ulcer disease Thrombocytopenia Type 2 diabetes mellitus with hyperglycemia Type 2 diabetes mellitus with unspecified complications Vitamin D deficiency Family History Father Lung cancer Mother Breast cancer Sister Breast cancer Brother Substance use disorder Sister No problems noted. Son No problems noted. Daughter No problems noted. Surgical History H/O colonoscopy H/O lymph node biopsy History of esophagogastroduodenoscopy (EGD) History of shoulder surgery Hx of cataract extraction Social History Household Members: Spouse Housing: House Are you a primary continuum of care manager to a significant other at home: No Do you presently have visiting nurse or other home services: No Alcohol intake: never Patient Tobacco Use Status: Never used Tobacco e-Cigarette/Vaping Use: Never Used Second Hand Smoke Exposure: No Advance Directives Date on File: 12/19/21 service: No Current occupational status: retired Cognitive needs: Yes (Walker, cane) Hearing needs: No Vision needs: Yes Meds Allergies Allergy/AdvReac Type Severity Reaction Status Date / Time gabapentin AdvReac Intermediate lethargy Verified 01/15/23 08:56 lisinopril AdvReac Intermediate Cough Verified 01/15/23 08:56 metformin AdvReac Intermediate lethargy Verified 01/15/23 08:56 Active Medications: Current Medications Amlodipine Besylate (Amlodipine Besylate 10 Mg Tablet) 10 mg PO DAILY [facility]; Protocol Apixaban (Apixaban 5 Mg Tablet) 5 mg PO BID [facility] Atorvastatin Calcium (Atorvastatin Calcium 40 Mg Tablet) 40 mg PO BEDTIME [facility] Escitalopram Oxalate (Escitalopram Oxalate 10 Mg Tablet) 10 mg PO DAILY [facility] Fluconazole (Fluconazole 100 Mg Tablet) 100 mg PO DAILY [facility] Glipizide (Glipizide Xl 5 Mg Tab.Er.24) 5 mg PO DAILY [facility] Levothyroxine Sodium (Levothyroxine Sodium 75 Mcg Tablet) 75 mcg PO DAILY@0600 [facility] Metoprolol Succinate (Metoprolol Succinate Er 100 Mg Tab.Er.24h) 100 mg PO DAILY [facility]; Protocol Sodium Chloride (0.9 % Sodium Chloride Flush 3 Ml Syringe) 3 ml IVFLUSH QSHIFT [facility] Tamsulosin HCl (Tamsulosin Hcl 0.4 Mg Capsule) 0.4 mg PO BEDTIME [facility] Vitamin D (Cholecalciferol (Vitamin D3) 25 Mcg Tablet) 25 mcg PO DAILY [facility] Home Medications Medication Instructions Recorded Confirmed Last Taken Type cholecalciferol (vitamin D3) 25 25 mcg PO DAILY 12/06/21 01/22/23 01/22/23 09:00 History mcg (1,000 unit) tablet (Vitamin D3) acetaminophen 325 mg tablet 650 mg PO Q6H PRN Pain 12/29/22 01/22/23 Unknown History levothyroxine 75 mcg tablet 75 mcg PO DAILY@0600 01/09/23 01/22/23 01/22/23 History amlodipine 10 mg tablet 10 mg PO DAILY 01/22/23 01/22/23 01/22/23 09:00 History atorvastatin 40 mg tablet 40 mg PO BEDTIME 01/22/23 01/22/23 01/22/23 09:00 History Physical Exam Vital Signs and Narrative: Vital Signs: Last Vital Signs Temp 98.2 F 01/22/23 10:11 Pulse 73 01/22/23 15:16 Resp 15 01/22/23 15:16 BP 119/56 L 01/22/23 15:16 Pulse Ox 97 01/22/23 15:16 O2 Del Method Room Air 01/22/23 15:16 BMI result Body Mass Index 28.3 Const: Other: Constitutional : Awake, interactive, not in distress Neck : Normal inspection, Supple Cardiovascular : RRR, no JVP, no lower extremity edema Respiratory : good bilateral air entry, no crackles, wheezes or rhonchi Gastrointestinal: soft, lax, Normal bowel sounds, Non tender Skin : Warm, Dry, swollen erythematous penis with no tenderness, whitish drainage from tip , erythema with no warmth, mild tenderness around scrotum and inner thigh Neurological : Alert & oriented x3, No focal deficit Results Labs 01/22/23 10:46 01/22/23 10:46 Labs: Laboratory Results - last 24 hr 01/22/23 01/22/23 01/22/23 10:46 10:46 10:46 MCV 81.8 MCH 26.4 L MCHC 32.2 RDW 16.3 H Plt Count 165 MPV 9.3 L Immature Gran % (Auto) 0.6 H Neut % (Auto) 66.2 Lymph % (Auto) 20.6 [place] % (Auto) 10.0 Eos % (Auto) 2.4 Baso % (Auto) 0.2 Lymph # (Auto) 1.0 L [place] # (Auto) 0.5 Eos # (Auto) 0.1 Baso # (Auto) 0.0 Abs Immat Gran (auto) 0.03 Absolute Neuts (auto) 3.1 Absolute Nucleated RBC 0.000 Nucleated RBC % (auto) 0.0 ESR 28 H Anion Gap 15 Estim Creat Clear Calc 46.2 Estimated GFR 56 Random Glucose 144 H Lactic Acid Lactic Acid F/U @ 2Hr Calcium 9.1 D Magnesium 2.1 Total Bilirubin 1.0 AST 15 ALT 14 Alkaline Phosphatase 90 Total Creatine Kinase C-Reactive Protein Total Protein 6.1 L Albumin 3.5 Urine Color Urine Appearance Urine pH Ur Specific [place] Urine Protein Urine Glucose (UA) Urine Ketones Urine Blood Urine Nitrite Ur Leukocyte Esterase Urine RBC Urine WBC Ur Squamous Epith Cells Urine Bacteria Hyaline Casts 01/22/23 01/22/23 01/22/23 11:17 12:04 12:04 MCV MCH MCHC RDW Plt Count MPV Immature Gran % (Auto) Neut % (Auto) Lymph % (Auto) [place] % (Auto) Eos % (Auto) Baso % (Auto) Lymph # (Auto) [place] # (Auto) Eos # (Auto) Baso # (Auto) Abs Immat Gran (auto) Absolute Neuts (auto) Absolute Nucleated RBC Nucleated RBC % (auto) ESR Anion Gap Estim Creat Clear Calc Estimated GFR Random Glucose Lactic Acid 3.0 H* Lactic Acid F/U @ 2Hr Calcium Magnesium Total Bilirubin AST ALT Alkaline Phosphatase Total Creatine Kinase 28 L C-Reactive Protein 1.84 H Total Protein Albumin Urine Color Yellow Urine Appearance Clear Urine pH 5.5 Ur Specific [place] 1.020 Urine Protein 30 (1+) H Urine Glucose (UA) Negative Urine Ketones Negative Urine Blood Small (1+) H Urine Nitrite Negative Ur Leukocyte Esterase Small (1+) H Urine RBC 6-10 H Urine WBC 21-50 H Ur Squamous Epith Cells 3-5 Urine Bacteria 4+ Hyaline Casts 3-5 01/22/23 14:28 MCV MCH MCHC RDW Plt Count MPV Immature Gran % (Auto) Neut % (Auto) Lymph % (Auto) [place] % (Auto) Eos % (Auto) Baso % (Auto) Lymph # (Auto) [place] # (Auto) Eos # (Auto) Baso # (Auto) Abs Immat Gran (auto) Absolute Neuts (auto) Absolute Nucleated RBC Nucleated RBC % (auto) ESR Anion Gap Estim Creat Clear Calc Estimated GFR Random Glucose Lactic Acid Lactic Acid F/U @ 2Hr 1.9 Calcium Magnesium Total Bilirubin AST ALT Alkaline Phosphatase Total Creatine Kinase C-Reactive Protein Total Protein Albumin Urine Color Urine Appearance Urine pH Ur Specific [place] Urine Protein Urine Glucose (UA) Urine Ketones Urine Blood Urine Nitrite Ur Leukocyte Esterase Urine RBC Urine WBC Ur Squamous Epith Cells Urine Bacteria Hyaline Casts Imaging Radiologist's Impressions: Impressions Scrotum Ultrasound 01/22/23 11:45 IMPRESSION: Unremarkable ultrasound scrotum. Bilateral epididymal head cysts. There is right mild epididymal tubular ectasia. Several echogenic calcifications lateral to the left testis of unknown etiology. Scrotum Ultrasound 01/22/23 11:45 IMPRESSION: Unremarkable ultrasound scrotum. Bilateral epididymal head cysts. There is right mild epididymal tubular ectasia. Several echogenic calcifications lateral to the left testis of unknown etiology. Pelvis CT 01/22/23 13:30 Impression: No evidence of Lesa's gangrene. Diffuse soft tissue swelling of the penis. Stout catheter in the bladder. Small amount of air and fluid in the bladder. Diverticulosis of the colon. Assessment and Plan (1) Cellulitis of scrotum: Status: Acute (2) Fungal infection: Status: Acute (3) Acute UTI: Status: Acute (4) Physical deconditioning: Status: Acute Plan A 77 years old male with Hx of CKD, CHF, Lymphoma, DM among others presenting with penile pain and erythema for the last 3-5 days after placement of urine catheter during recent hospital stay 10 days ago. Scrotal cellulitis Not septic pending blood culture send drainage culture start Doxycycline and Cefazoline pending cx results Fluconazole for possible fungal infx UTI pending cultures on Abx physical deconditioning PT eval HTN continue Amlodipine Hx Afib paroxysmal rate controlled continue Eliquis, Metoprolol BPH Tamsulosin DVT ppx Eliquis The patient will need 2 overnight hospital stay for antibiotics treatment pending clinical improvement. Time Spent With Patient Time: Total time managing care of this patient today ____ minutes. Quality Stroke Does the patient have a stroke diagnosis?: No VTE Prior VTE?: No VTE Risk Level:: Medical - moderate - high VTE Device Contraindication: Treatment Not Indicated VTE Drug Contraindication: N/A - Med Ordered
[2023-01-22 16:16] VITALS: BP 122/57; PULSE 62; RESP 15; O2SAT 92
[2023-01-22] MEDS: ceFAZolin Sodium/Dextrose,Iso 2 GM/50 ML PIGGYBACK IV (17:04)
[2023-01-22 17:36] LABS: Glucose, Whole Blood 90 mg/dL (60-115)
[2023-01-22] MEDS: Doxycycline Hyclate 100 MG in 0.9 % Sodium Chloride 250 ML 166.67 MG IV (18:27)
[2023-01-22 20:26] VITALS: BMI 31.1
[2023-01-22 20:40] LABS: Glucose, Whole Blood 169 mg/dL (60-115)
[2023-01-22] MEDS: Insulin Lispro 100 UNIT/ML 3 ML VIAL SUBCUT (21:12)
[2023-01-22] MEDS: Apixaban 5 MG TABLET PO (21:13)
[2023-01-22] MEDS: 0.9 % Sodium Chloride Flush 3 ML SYRINGE IVFLUSH (21:13)
[2023-01-22] MEDS: Tamsulosin HCL 0.4 MG CAPSULE PO (21:13)
[2023-01-22] MEDS: Atorvastatin Calcium 40 MG TABLET PO (21:13)
[2023-01-22 22:39] VITALS: PULSE 90; O2SAT 97
[2023-01-23] MEDS: ceFAZolin Sodium/Dextrose,Iso 2 GM/50 ML PIGGYBACK IV ×3 (00:55→18:05)
[2023-01-23 04:00] VITALS: BP 122/61; PULSE 75; RESP 16; TEMP 36.3; O2SAT 97
[2023-01-23] MEDS: Doxycycline Hyclate 100 MG in 0.9 % Sodium Chloride 250 ML 166.67 MG IV ×2 (04:48→16:07)
[2023-01-23] MEDS: Levothyroxine Sodium 75 MCG TABLET PO (04:57)
[2023-01-23 07:15] VITALS: BP 117/62; PULSE 81; RESP 16; TEMP 36.4; O2SAT 95
[2023-01-23 07:31] LABS: Glucose, Whole Blood 80 mg/dL (60-115)
[2023-01-23] MEDS: Escitalopram Oxalate 10 MG TABLET PO (08:05)
[2023-01-23] MEDS: Fluconazole 100 MG TABLET PO (08:05)
[2023-01-23] MEDS: Metoprolol Succinate ER 100 MG TAB.ER.24H PO (08:05)
[2023-01-23] MEDS: amLODIPine Besylate 10 MG TABLET PO (08:05)
[2023-01-23] MEDS: Apixaban 5 MG TABLET PO ×2 (08:06→20:07)
[2023-01-23] MEDS: Cholecalciferol (Vitamin D3) 25 MCG TABLET PO (08:06)
[2023-01-23] MEDS: 0.9 % Sodium Chloride Flush 3 ML SYRINGE IVFLUSH ×3 (08:08→20:08)
--- NOTE | 2023-01-23 10:19 | P.PNIM_ITS ---
Subjective Subjective Date of Service: 01/23/23 Interval History: Feels less pain erythema seems to be improving No fever or chills overnight No other events reported Review of Systems No fever, chills but reports generalized weakness No chest pain, palpitation No shortness of breath or coughing No abdominal pain, nausea or vomiting drainage around stout, swollen penis No any rash or wounds Physical Exam Vital Signs: Vital Signs: Last Vital Signs Temp 97.5 F 01/23/23 07:15 Pulse 81 01/23/23 07:15 Resp 16 01/23/23 07:15 BP 117/62 01/23/23 07:15 Pulse Ox 95 01/23/23 07:15 O2 Del Method Room Air 01/23/23 07:15 BMI result Body Mass Index 31.1 Const: Other: Constitutional : Awake, interactive, not in distress Neck : Normal inspection, Supple Cardiovascular : RRR, no JVP, no lower extremity edema Respiratory : good bilateral air entry, no crackles, wheezes or rhonchi Gastrointestinal: soft, lax, Normal bowel sounds, Non tender Skin : Warm, Dry, swollen erythematous penis with no tenderness, whitish drainage from tip , erythema with no warmth, mild tenderness around scrotum and inner thigh Neurological : Alert & oriented x3, No focal deficit Objective Data Active Medications Amlodipine Besylate (Amlodipine Besylate 10 Mg Tablet) 10 mg PO DAILY [facility]; Protocol Last Admin: 01/23/23 08:05 Dose: 10 mg Documented By: TIFFANY Apixaban (Apixaban 5 Mg Tablet) 5 mg PO BID [facility] Last Admin: 01/23/23 08:06 Dose: 5 mg Documented By: TIFFANY Atorvastatin Calcium (Atorvastatin Calcium 40 Mg Tablet) 40 mg PO BEDTIME [facility] Last Admin: 01/22/23 21:13 Dose: 40 mg Documented By: ANNY Escitalopram Oxalate (Escitalopram Oxalate 10 Mg Tablet) 10 mg PO DAILY [facility] Last Admin: 01/23/23 08:05 Dose: 10 mg Documented By: TIFFANY Fluconazole (Fluconazole 100 Mg Tablet) 100 mg PO DAILY [facility] Last Admin: 01/23/23 08:05 Dose: 100 mg Documented By: TIFFANY Cefazolin Sodium/Dextrose (Ancef) 2 gm in 50 mls @ 100 mls/hr IV Q8H [facility] Last Infusion: 01/23/23 08:56 Dose: 0 mls/hr Documented By: FREDDY Doxycycline Hyclate 100 mg/ (Sodium Chloride) 250 mls @ 166.67 mls/hr IV Q12H [facility] Last Infusion: 01/23/23 06:27 Dose: 0 mls/hr Documented By: ANNY Insulin Human Lispro (Insulin Lispro 100 Unit/Ml 3 Ml Vial) 0 unit SUBCUT QIDACHS [facility]; Protocol Last Admin: 01/23/23 07:32 Dose: Not Given Documented By: FREDDY Non-Admin Reason: No Insulin Coverage Levothyroxine Sodium (Levothyroxine Sodium 75 Mcg Tablet) 75 mcg PO DAILY@0600 [facility] Last Admin: 01/23/23 04:57 Dose: 75 mcg Documented By: ANNY Metoprolol Succinate (Metoprolol Succinate Er 100 Mg Tab.Er.24h) 100 mg PO DAILY [facility]; Protocol Last Admin: 01/23/23 08:05 Dose: 100 mg Documented By: TIFFANY Nystatin (Nystatin Powder 15 Gm Bottle) 1 appl TOPICAL TID [facility]; Protocol Last Admin: 01/23/23 08:56 Dose: Not Given Documented By: FREDDY Non-Admin Reason: Med Not Available Sodium Chloride (0.9 % Sodium Chloride Flush 3 Ml Syringe) 3 ml IVFLUSH QSHIFT [facility] Last Admin: 01/23/23 08:08 Dose: 3 ml Documented By: TIFFANY Tamsulosin HCl (Tamsulosin Hcl 0.4 Mg Capsule) 0.4 mg PO BEDTIME [facility] Last Admin: 01/22/23 21:13 Dose: 0.4 mg Documented By: ANNY Vitamin D (Cholecalciferol (Vitamin D3) 25 Mcg Tablet) 25 mcg PO DAILY [facility] Last Admin: 01/23/23 08:06 Dose: 25 mcg Documented By: TIFFANY Labs 01/22/23 10:46 01/22/23 10:46 Labs: Laboratory Results - last 24 hr 01/22/23 01/22/23 01/22/23 10:46 10:46 10:46 MCV 81.8 MCH 26.4 L MCHC 32.2 RDW 16.3 H Plt Count 165 MPV 9.3 L Immature Gran % (Auto) 0.6 H Neut % (Auto) 66.2 Lymph % (Auto) 20.6 [place] % (Auto) 10.0 Eos % (Auto) 2.4 Baso % (Auto) 0.2 Lymph # (Auto) 1.0 L [place] # (Auto) 0.5 Eos # (Auto) 0.1 Baso # (Auto) 0.0 Abs Immat Gran (auto) 0.03 Absolute Neuts (auto) 3.1 Absolute Nucleated RBC 0.000 Nucleated RBC % (auto) 0.0 ESR 28 H Anion Gap 15 Estim Creat Clear Calc 46.2 Estimated GFR 56 POC Glucose Random Glucose 144 H Lactic Acid Lactic Acid F/U @ 2Hr Calcium 9.1 D Magnesium 2.1 Total Bilirubin 1.0 AST 15 ALT 14 Alkaline Phosphatase 90 Total Creatine Kinase C-Reactive Protein Total Protein 6.1 L Albumin 3.5 Urine Color Urine Appearance Urine pH Ur Specific [place] Urine Protein Urine Glucose (UA) Urine Ketones Urine Blood Urine Nitrite Ur Leukocyte Esterase Urine RBC Urine WBC Ur Squamous Epith Cells Urine Bacteria Hyaline Casts 01/22/23 01/22/23 01/22/23 11:17 12:04 12:04 MCV MCH MCHC RDW Plt Count MPV Immature Gran % (Auto) Neut % (Auto) Lymph % (Auto) [place] % (Auto) Eos % (Auto) Baso % (Auto) Lymph # (Auto) [place] # (Auto) Eos # (Auto) Baso # (Auto) Abs Immat Gran (auto) Absolute Neuts (auto) Absolute Nucleated RBC Nucleated RBC % (auto) ESR Anion Gap Estim Creat Clear Calc Estimated GFR POC Glucose Random Glucose Lactic Acid 3.0 H* Lactic Acid F/U @ 2Hr Calcium Magnesium Total Bilirubin AST ALT Alkaline Phosphatase Total Creatine Kinase 28 L C-Reactive Protein 1.84 H Total Protein Albumin Urine Color Yellow Urine Appearance Clear Urine pH 5.5 Ur Specific [place] 1.020 Urine Protein 30 (1+) H Urine Glucose (UA) Negative Urine Ketones Negative Urine Blood Small (1+) H Urine Nitrite Negative Ur Leukocyte Esterase Small (1+) H Urine RBC 6-10 H Urine WBC 21-50 H Ur Squamous Epith Cells 3-5 Urine Bacteria 4+ Hyaline Casts 3-5 01/22/23 01/22/23 01/22/23 14:28 17:32 20:33 MCV MCH MCHC RDW Plt Count MPV Immature Gran % (Auto) Neut % (Auto) Lymph % (Auto) [place] % (Auto) Eos % (Auto) Baso % (Auto) Lymph # (Auto) [place] # (Auto) Eos # (Auto) Baso # (Auto) Abs Immat Gran (auto) Absolute Neuts (auto) Absolute Nucleated RBC Nucleated RBC % (auto) ESR Anion Gap Estim Creat Clear Calc Estimated GFR POC Glucose 90 169 H Random Glucose Lactic Acid Lactic Acid F/U @ 2Hr 1.9 Calcium Magnesium Total Bilirubin AST ALT Alkaline Phosphatase Total Creatine Kinase C-Reactive Protein Total Protein Albumin Urine Color Urine Appearance Urine pH Ur Specific [place] Urine Protein Urine Glucose (UA) Urine Ketones Urine Blood Urine Nitrite Ur Leukocyte Esterase Urine RBC Urine WBC Ur Squamous Epith Cells Urine Bacteria Hyaline Casts 01/23/23 07:17 MCV MCH MCHC RDW Plt Count MPV Immature Gran % (Auto) Neut % (Auto) Lymph % (Auto) [place] % (Auto) Eos % (Auto) Baso % (Auto) Lymph # (Auto) [place] # (Auto) Eos # (Auto) Baso # (Auto) Abs Immat Gran (auto) Absolute Neuts (auto) Absolute Nucleated RBC Nucleated RBC % (auto) ESR Anion Gap Estim Creat Clear Calc Estimated GFR POC Glucose 80 Random Glucose Lactic Acid Lactic Acid F/U @ 2Hr Calcium Magnesium Total Bilirubin AST ALT Alkaline Phosphatase Total Creatine Kinase C-Reactive Protein Total Protein Albumin Urine Color Urine Appearance Urine pH Ur Specific [place] Urine Protein Urine Glucose (UA) Urine Ketones Urine Blood Urine Nitrite Ur Leukocyte Esterase Urine RBC Urine WBC Ur Squamous Epith Cells Urine Bacteria Hyaline Casts Assessment and Plan (1) Cellulitis of scrotum: Status: Acute (2) Fungal infection: Status: Acute (3) Physical deconditioning: Status: Acute Plan A 77 years old male with Hx of CKD, CHF, Lymphoma, DM among others presenting with penile pain and erythema for the last 3-5 days after placement of urine catheter during recent hospital stay 10 days ago. Scrotal cellulitis w penile swelling Not septic pending urine,blood and wound cultures send drainage culture Doxycycline and Cefazoline pending cx results Fluconazole for possible fungal infx UTI pending cultures on Abx physical deconditioning PT eval HTN continue Amlodipine Hx Afib paroxysmal rate controlled continue Eliquis, Metoprolol BPH Tamsulosin DVT ppx Eliquis The patient will need overnight hospital stay for antibiotics treatment pending clinical improvement. Time Spent With Patient Time: Total time managing care of this patient today ____ minutes. Quality Stroke Does the patient have a stroke diagnosis?: No VTE Prior VTE?: No VTE Risk Level:: Medical - moderate - high VTE Device Contraindication: Treatment Not Indicated VTE Drug Contraindication: N/A - Med Ordered
[2023-01-23 11:15] LABS: Glucose, Whole Blood 140 mg/dL (60-115)
--- NOTE | 2023-01-23 14:03 | PM.UROCN ---
History of Present Illness Consult details Consult date: 01/22/23 Narrative: consulting complaint scrotal inflammation 77-year-old male. Recently seen in hospital. Rincon catheter placed. 1200 cc residual. Admit through emergency room with painful, erythematous, edematous scrotum. Had started in past 24-36 hours. Tender to touch. Recommend admission to Medicine with broad-spectrum antibiotics and any fungal. Continue with catheter drainage background of CHF, cognitive impairment, diabetes Review of Systems Constitutional: Constitutional: Reports as per HPI and Reports no additional constitutional complaints Cardiovascular: Cardiovascular: Reports as per HPI and Reports no additional cardiovascular complaints Respiratory: Respiratory: Reports as per HPI and Reports no additional respiratory complaints Gastrointestinal: Gastrointestinal: Reports as per HPI and Reports no additional gastrointestinal complaints Genitourinary: Genitourinary: Reports as per HPI Musculoskeletal: Musculoskeletal: Reports no additional musculoskeletal complaints and Reports as per HPI Neurologic: Reports system reviewed and no additional complaints, except as documented and Reports as per HPI PMFSH Past Medical History Medical History (HFpEF) heart failure with preserved ejection fraction Anxiety and depression CHF (congestive heart failure) CKD (chronic kidney disease) stage 3, GFR 30-59 ml/min Hypercholesterolemia Non Hodgkin's lymphoma LARISSA (obstructive sleep apnea) PAF (paroxysmal atrial fibrillation) Peptic ulcer disease Thrombocytopenia Type 2 diabetes mellitus with hyperglycemia Type 2 diabetes mellitus with unspecified complications Vitamin D deficiency Family History Family History Father Lung cancer Mother Breast cancer Sister Breast cancer Brother Substance use disorder Sister No problems noted. Son No problems noted. Daughter No problems noted. Surgical History Surgical History H/O colonoscopy H/O lymph node biopsy History of esophagogastroduodenoscopy (EGD) History of shoulder surgery Hx of cataract extraction Social History Social History Household Members: Spouse and Family Housing: House Are you a primary associate director career services to a significant other at home: No Do you presently have visiting nurse or other home services: No Alcohol intake: never Patient Tobacco Use Status: Never used Tobacco e-Cigarette/Vaping Use: Never Used Second Hand Smoke Exposure: No Advance Directives Date on File: 12/19/21 service: No Current occupational status: retired Cognitive needs: Yes (Walker, cane) Hearing needs: No Vision needs: Yes Meds Allergies Allergy/AdvReac Type Severity Reaction Status Date / Time gabapentin AdvReac Intermediate lethargy Verified 01/15/23 08:56 lisinopril AdvReac Intermediate Cough Verified 01/15/23 08:56 metformin AdvReac Intermediate lethargy Verified 01/15/23 08:56 Active Medications: Current Medications Amlodipine Besylate (Amlodipine Besylate 10 Mg Tablet) 10 mg PO DAILY [facility]; Protocol Last Admin: 01/23/23 08:05 Dose: 10 mg Apixaban (Apixaban 5 Mg Tablet) 5 mg PO BID [facility] Last Admin: 01/23/23 08:06 Dose: 5 mg Atorvastatin Calcium (Atorvastatin Calcium 40 Mg Tablet) 40 mg PO BEDTIME [facility] Last Admin: 01/22/23 21:13 Dose: 40 mg Escitalopram Oxalate (Escitalopram Oxalate 10 Mg Tablet) 10 mg PO DAILY [facility] Last Admin: 01/23/23 08:05 Dose: 10 mg Fluconazole (Fluconazole 100 Mg Tablet) 100 mg PO DAILY [facility] Last Admin: 01/23/23 08:05 Dose: 100 mg Cefazolin Sodium/Dextrose (Ancef) 2 gm in 50 mls @ 100 mls/hr IV Q8H [facility] Last Infusion: 01/23/23 08:56 Dose: Infused Doxycycline Hyclate 100 mg/ (Sodium Chloride) 250 mls @ 166.67 mls/hr IV Q12H [facility] Last Infusion: 01/23/23 06:27 Dose: Infused Insulin Human Lispro (Insulin Lispro 100 Unit/Ml 3 Ml Vial) 0 unit SUBCUT QIDACHS [facility]; Protocol Last Admin: 01/23/23 11:24 Dose: Not Given Levothyroxine Sodium (Levothyroxine Sodium 75 Mcg Tablet) 75 mcg PO DAILY@0600 [facility] Last Admin: 01/23/23 04:57 Dose: 75 mcg Metoprolol Succinate (Metoprolol Succinate Er 100 Mg Tab.Er.24h) 100 mg PO DAILY [facility]; Protocol Last Admin: 01/23/23 08:05 Dose: 100 mg Nystatin (Nystatin Powder 15 Gm Bottle) 1 appl TOPICAL TID [facility]; Protocol Last Admin: 01/23/23 08:56 Dose: Not Given Sodium Chloride (0.9 % Sodium Chloride Flush 3 Ml Syringe) 3 ml IVFLUSH QSHIFT [facility] Last Admin: 01/23/23 08:08 Dose: 3 ml Tamsulosin HCl (Tamsulosin Hcl 0.4 Mg Capsule) 0.4 mg PO BEDTIME [facility] Last Admin: 01/22/23 21:13 Dose: 0.4 mg Vitamin D (Cholecalciferol (Vitamin D3) 25 Mcg Tablet) 25 mcg PO DAILY [facility] Last Admin: 01/23/23 08:06 Dose: 25 mcg Home Medications Medication Instructions Recorded Confirmed Last Taken Type cholecalciferol (vitamin D3) 25 25 mcg PO DAILY 12/06/21 01/22/23 01/22/23 09:00 History mcg (1,000 unit) tablet (Vitamin D3) acetaminophen 325 mg tablet 650 mg PO Q6H PRN Pain 12/29/22 01/22/23 Unknown History levothyroxine 75 mcg tablet 75 mcg PO DAILY@0600 01/09/23 01/22/23 01/22/23 History amlodipine 10 mg tablet 10 mg PO DAILY 01/22/23 01/22/23 01/22/23 09:00 History atorvastatin 40 mg tablet 40 mg PO BEDTIME 01/22/23 01/22/23 01/22/23 09:00 History Physical Exam Vital Signs: Vital Signs: Last Vital Signs Temp 97.5 F 01/23/23 07:15 Pulse 81 01/23/23 07:15 Resp 16 01/23/23 07:15 BP 117/62 01/23/23 07:15 Pulse Ox 95 01/23/23 07:15 O2 Del Method Room Air 01/23/23 07:15 BMI result Body Mass Index 31.1 Const: General: cooperative, healthy appearing, comfortable and no acute distress Orientation/consciousness: patient oriented x3 HEENT: Face and sinus: Yes normal facial exam Mouth: moist mucous membranes Neck: Neck: Yes normal visual inspection, Yes full ROM and Yes trachea midline Chest: Chest palpation & inspection: normal inspection of the chest Resp: Effort & Inspection: normal respiratory effort, able to speak in complete sentences and no respiratory distress GI: Inspection: Yes normal to inspection Back/Spine/Pelvis: Cervical Spine: normal cervical lordosis Thoracic/Lumbar Spine: thoracic and lumbar spine normal to inspection Skin: General skin exam: no rashes or lesions noted Neuro: General: patient oriented x3, tone normal and moves all extremities Extrem: General: Yes normal to inspection and Yes capillary refill normal Results Labs 01/22/23 10:46 01/22/23 10:46 Labs: Abnormal lab results 01/22/23 01/23/23 Range/Units 20:33 11:07 POC Glucose 169 H 140 H (60-115) mg/dL Urine 01/22/23 Range/Units 11:17 Urine Color Yellow Urine Appearance Clear Urine pH 5.5 (5.0-9.0) Ur Specific [place] 1.020 (1.005-1.025) Urine Protein 30 (1+) H (Neg-Trace) mg/dL Urine Glucose (UA) Negative (Negative) mg/dL All other labs normal. Assessment and Plan (1) Cellulitis of scrotum: Status: Acute Plan broad-spectrum antibiotics Time Spent With Patient Time: Total time managing care of this patient today ____ minutes. Procedures Date of Service Date of Service: 01/23/23
[2023-01-23] MEDS: Nystatin Powder 15 GM BOTTLE 1 APPL TOPICAL ×2 (14:36→20:07)
[2023-01-23 15:38] VITALS: BP 118/62; PULSE 75; RESP 18; TEMP 36.4; O2SAT 96
[2023-01-23 16:09] LABS: Glucose, Whole Blood 111 mg/dL (60-115)
[2023-01-23 19:34] VITALS: BP 106/75; PULSE 67; RESP 16; TEMP 36.3; O2SAT 96
[2023-01-23] MEDS: Tamsulosin HCL 0.4 MG CAPSULE PO (20:07)
[2023-01-23] MEDS: Atorvastatin Calcium 40 MG TABLET PO (20:07)
[2023-01-23 20:32] LABS: Glucose, Whole Blood 132 mg/dL (60-115)
[2023-01-23 22:59] VITALS: PULSE 64; O2SAT 96
[2023-01-24] MEDS: ceFAZolin Sodium/Dextrose,Iso 2 GM/50 ML PIGGYBACK IV ×2 (00:49→08:29)
[2023-01-24 03:28] VITALS: BP 115/56; PULSE 80; RESP 16; TEMP 36.4; O2SAT 93
[2023-01-24] MEDS: Doxycycline Hyclate 100 MG in 0.9 % Sodium Chloride 250 ML 166.67 MG IV (05:01)
[2023-01-24] MEDS: Levothyroxine Sodium 75 MCG TABLET PO (05:02)
[2023-01-24 06:29] LABS: Hematocrit 29.9 % (42.0-52.0); Hemoglobin 9.6 g/dl (14.0-18.0); Mean Corpuscular HGB Conc 32.1 g/dl (31.0-36.0); Mean Corpuscular Hemoglobin 26.4 pg (27.0-33.0); Mean Corpuscular Volume 82.1 fL (80.0-98.0); Mean Platelet Volume 9.7 fL (9.4-12.4); Platelet Count 153 X10*3/uL (160-400); Red Blood Count 3.64 X10*6/uL (4.60-5.80); Red Cell Distribution Width 16.3 % (11.0-16.0); White Blood Count 4.5 X10*3/uL (4.8-10.8)
[2023-01-24 06:48] LABS: Anion Gap 10 (12-20); Blood Urea Nitrogen 9 mg/dL (9-16); Calcium 8.8 mg/dL (8.4-10.2); Carbon Dioxide 26 mmol/L (22-29); Chloride 106 mmol/L (96-108); Creatinine Clr Calc Pharmacy 51.2; Estimated Glomerular Filt Rate > 60; Glucose Random 90 mg/dL (60-115); Potassium 4.2 mmol/L (3.3-5.1); Sodium 138 mmol/L (135-145)
[2023-01-24 07:02] VITALS: BP 127/67; PULSE 77; RESP 18; TEMP 36.7; O2SAT 96
[2023-01-24 07:14] LABS: Glucose, Whole Blood 96 mg/dL (60-115)
[2023-01-24] MEDS: Nystatin Powder 15 GM BOTTLE 1 APPL TOPICAL (08:28)
[2023-01-24] MEDS: 0.9 % Sodium Chloride Flush 3 ML SYRINGE IVFLUSH (08:28)
[2023-01-24] MEDS: amLODIPine Besylate 10 MG TABLET PO (08:29)
[2023-01-24] MEDS: Metoprolol Succinate ER 100 MG TAB.ER.24H PO (08:29)
[2023-01-24] MEDS: Apixaban 5 MG TABLET PO (08:29)
[2023-01-24] MEDS: Fluconazole 100 MG TABLET PO (08:29)
[2023-01-24] MEDS: Escitalopram Oxalate 10 MG TABLET PO (08:29)
[2023-01-24] MEDS: Cholecalciferol (Vitamin D3) 25 MCG TABLET PO (08:29)
--- NOTE | 2023-01-24 09:44 | PM.DS ---
DS: Providers Provider Date of Service: 01/24/23 Date of admission: 01/22/23 15:58 Primary care physician: Carmen Peters MD Consults: 01/23/23 10:27 Consult to Urology Routine Consulting Provider: Satinder Perez Reason for consultation: penile swelling and tenderness, erythema improving. DS: Diagnosis Discharge Diagnosis (1) Cellulitis of scrotum: Status: Acute (2) Fungal infection: Status: Acute (3) Physical deconditioning: Status: Acute DS: Summary Hospital Course Hospital Course: Admission note HPI A 77 years old male with Hx of CKD, CHF, Lymphoma, DM among others presenting with penile pain and erythema for the last 3-5 days after placement of urine catheter during recent hospital stay 10 days ago. denies fever or chills but report pain in the area with no itching. developed swelling in the penis with reported drainage. In ED found to have elevated lactic acid level. Admitted for further eval and treatment. Hospital course The patient was admitted for Scrotal cellulitis w penile swelling, Not septic on admission. negative urine,blood and wound cultures at time of discharge. scrotal images were negative for any torsion or deep infection. treated with IV Doxycycline and Cefazoline with 3 doses of Fluconazole for possible fungal infx. evaluated by urology who recommended to continue antibiotics at time of discharge as the erythema, pain and swelling significantly improved. urine looked infected but likely abnormal from having stout catheter, was on antibiotics. evaluated for physical deconditioning with PT. will continue services at home. Take antibiotics as prescribed Follow with dr Perez in office as planned Time Spent with Patient Time attestation: Total time managing care of this patient today ____ minutes. Discharge coordination time: Greater than 30 minutes Quality: Safe Use of Opioids Does Pt have an Active Cancer Diagnosis on the Problem List?: No Quality: Stroke Does the patient have a stroke diagnosis?: No Physical Exam Vital Signs: Vital Signs: Last Vital Signs Temp 98.1 F 01/24/23 07:02 Pulse 77 01/24/23 07:02 Resp 18 01/24/23 07:02 BP 127/67 01/24/23 07:02 Pulse Ox 96 01/24/23 07:02 O2 Del Method Room Air 01/24/23 07:02 BMI result Body Mass Index 31.1 Const: Other: Constitutional : Awake, interactive, not in distress Neck : Normal inspection, Supple Cardiovascular : RRR, no JVP, no lower extremity edema Respiratory : good bilateral air entry, no crackles, wheezes or rhonchi Gastrointestinal: soft, lax, Normal bowel sounds, Non tender Skin : Warm, Dry, swollen penis with no tenderness, , no significant erythema with no warmth, no tenderness around scrotum and inner thigh Neurological : Alert & oriented x3, No focal deficit DS: Data Data Completed and Pending Completed studies during hospitalization [Text1]: Procedures Assistance with Respiratory Ventilation, Less than 24 Consecutive Hours, Continuous Positive Airway Pressure (12/05/21) Introduction of Remdesivir Anti-infective into Peripheral Vein, Percutaneous Approach, [employer] 5 (12/05/21) Labs on day of discharge: Laboratory Results - last 24 hr 01/23/23 01/23/23 01/23/23 11:07 16:01 20:27 WBC RBC Hgb Hct MCV MCH MCHC RDW Plt Count MPV Absolute Nucleated RBC Nucleated RBC % (auto) Sodium Potassium Chloride Carbon Dioxide Anion Gap BUN Creatinine Estim Creat Clear Calc Estimated GFR POC Glucose 140 H 111 132 H Random Glucose Calcium 01/24/23 01/24/23 01/24/23 05:49 05:49 07:09 WBC 4.5 L RBC 3.64 L Hgb 9.6 L Hct 29.9 L MCV 82.1 MCH 26.4 L MCHC 32.1 RDW 16.3 H Plt Count 153 L MPV 9.7 Absolute Nucleated RBC 0.000 Nucleated RBC % (auto) 0.0 Sodium 138 Potassium 4.2 Chloride 106 Carbon Dioxide 26 Anion Gap 10 L BUN 9 Creatinine 1.17 Estim Creat Clear Calc 51.2 Estimated GFR > 60 POC Glucose 96 Random Glucose 90 Calcium 8.8 Preliminary micro results at discharge 01/22/23 16:57 Routine Culture - Preliminary Penis Culture in progress. 01/22/23 10:38 Urine Culture - Preliminary Urine clean catch - Urine garnica top Culture in progress. 01/22/23 12:04 Blood Culture - Preliminary Blood - Venous No growth after 24 hours. 01/22/23 12:04 Blood Culture - Preliminary Blood - Venous No growth after 24 hours. Imaging US - abdomen: Radiologist's impression: ITS Impressions Scrotum Ultrasound 01/22/23 11:45 IMPRESSION: Unremarkable ultrasound scrotum. Bilateral epididymal head cysts. There is right mild epididymal tubular ectasia. Several echogenic calcifications lateral to the left testis of unknown etiology. Scrotum Ultrasound 01/22/23 11:45 IMPRESSION: Unremarkable ultrasound scrotum. Bilateral epididymal head cysts. There is right mild epididymal tubular ectasia. Several echogenic calcifications lateral to the left testis of unknown etiology. Pelvis CT 01/22/23 13:30 Impression: No evidence of Lesa's gangrene. Diffuse soft tissue swelling of the penis. Stout catheter in the bladder. Small amount of air and fluid in the bladder. Diverticulosis of the colon. Discharge Plan Discharge Anticipated Discharge Date/Time: 01/24/23 09:37 Patient Disposition: Home Health Service Discharge Diagnosis: Acute urine infection Referrals: [facility] [place] Urology Services [Provider Group] - 1 day Po,Carmen Joshi MD [Primary Care Provider] - 2 days Discharge Medications: New doxycycline monohydrate 100 mg capsule 100 mg PO BID Qty: 14 0RF cephalexin 500 mg capsule 500 mg PO BID Qty: 14 0RF nystatin 100,000 unit/gram Powder 1 appl topical TID 7 Days Qty: 60 1RF Protocol: Apply to: Apply to: Affected area Continued metoprolol succinate 100 mg tablet extended release 24 hr 100 mg PO DAILY 90 Days Qty: 90 2RF Eliquis 5 mg tablet 5 mg PO BID Qty: 180 3RF cholecalciferol (vitamin D3) [Vitamin D3] 25 mcg (1,000 unit) Tablet 25 mcg PO DAILY amlodipine 10 mg tablet 10 mg PO DAILY atorvastatin 40 mg tablet 40 mg PO BEDTIME acetaminophen 325 mg Tablet 650 mg PO Q6H PRN (Reason: Pain) levothyroxine 75 mcg tablet 75 mcg PO DAILY@0600 tamsulosin 0.4 mg Capsule 0.4 mg PO BEDTIME Qty: 30 0RF glipizide 5 mg tablet extended release 24hr 5 mg PO DAILY Qty: 90 2RF (DME) Ultra-Light Rollator Misc See Rx Instructions .Route Qty: 1 0RF Rx Instructions: As directed escitalopram oxalate 10 mg tablet 10 mg PO DAILY Qty: 30 0RF Discharge Orders: Discharge Order (Routine); Ordered 01/24/23 Ordered By: Dillon Patricia Diet: Diabetic diet Activity on Discharge: As tolerated Stand Alone Forms: Patient Portal Discharge page Activity Restrictions/Additional Instructions: Take your medications as prescribed. If you were prescribed antibiotics today, it is important that you take your medication to their entirety, do not skip any doses, do not finish them early. Follow-up with your primary care provider this week. Return to the emergency department with new or worsening symptoms. Such as fevers, chills, chest pain, shortness of breath, nausea, vomiting, dizziness, headache, vision changes, lethargy, worsening redness or swelling, worsening discharge In case of emergency call 911 It is likely that your Stout catheter will stay in for about 1 month. Doxycycline and Keflex or antibiotics that will treat for a UTI & overlying skin infection, please take this as prescribed, doxycycline can cause skin sensitivity and direct sunlight, going outside please wear hats. Care Plan Goals: Read below Health Concerns: Read below Plan of Treatment: Read below Assessment: Take antibiotics as prescribed Follow with dr Perez in office as planned Patient Instructions: Skin Yeast Infection (ED)
[2023-01-24 11:17] LABS: Glucose, Whole Blood 123 mg/dL (60-115)
--- NOTE | 2023-01-24 11:57 | MHC.CM.PN ---
Addendum entered by Missy Pop 01/24/23 12:00: PT WILL DC HOME TODAY WITH RESUMPTION OF [facility] CM CALLED PTS WHO REPORTS SHE SPOKE TO THE PT AND HE PLANS TO CALL HER WHEN HE IS READY TO LEAVE SHE IS AWARE THE [facility] WILL RESUME SERVICES ON WEDNESDAY Original Note: CM MET WITH PT ON 01/13/23, PT PROVIDED THE FOLLOWING INFORMATION: PT LIVES WITH HIS AND IS INDEPENDENT WITH CARE PT HAS A CPAP FOR DME AND NOTHING ELSE PT IS UNSURE IF HE IS ACTIVE WITH A [facility] AT THIS TIME HCP ON FILE PCP: CARLA MONCADA [facility] DELIVERED PER NOTES, PT DISCHARGED WITH [facility] RECENTLY. CM CONTACTED [facility] WHO CONFIRMED PT IS ACTIVE FOR PT/OT DCP WILL BE UPLOADED TO [facility] ONCE AVAILABLE DCP: [facility] WILL TRANSPORT
== END 2023-01-24 14:33 | disposition home health service (06) | DRG 863 ==
LOC: HO.ED 14:50 → HO.EDOVER 16:20 → HO.S3 19:09
PROVIDERS: Physician Assistant; Admitting Provider Student in an Organized Health Care Education/Training Program; Emergency Provider Emergency Medicine; PCP Internal Medicine; Visit Provider Student in an Organized Health Care Education/Training Program
DX: T81.40XA Infection following a procedure, unspecified, initial encounter (principal); N49.2 Inflammatory disorders of scrotum; G47.33 Obstructive sleep apnea (adult) (pediatric); I48.0 Paroxysmal atrial fibrillation; B35.6 Tinea cruris; N40.0 Benign prostatic hyperplasia without lower urinary tract symptoms; I10 Essential (primary) hypertension; Z79.01 Long term (current) use of anticoagulants; Z79.890 Hormone replacement therapy; Z79.899 Other long term (current) drug therapy
CPT/HCPCS: 36415; 72193; 76870; 80048; 80053; 81001; 82550; 82947; 83605; 83735; 85025; 85027; 85652; 86140; 87040; 87070; 87086; 87088; 87186; 87205; 93975; 94660; 97161; 99221; 99285; C1758; J0690; J2543; J3370; Q9967

== ENCOUNTER 2023-02-04 08:54 | Outpatient (REF) | payer MEDICARE, SELFPAY ==
--- NOTE | ~2023-02-04 | XR_ITS ---
EXAMINATION: XR CHEST 2 VIEWS CLINICAL INFORMATION: Paroxysmal atrial fibrillation. COMPARISON: Chest radiographs dated 01/09/2023. TECHNIQUE: Frontal and lateral views of the chest were obtained. FINDINGS: The heart, great vessels, pulmonary vasculature and mediastinum are normal. There is atherosclerotic calcifications of the aortic knob. The lungs show no focal infiltrate, effusion or pneumothorax. There is mild elevation of the right hemidiaphragm. There is no acute osseous abnormality. There is a mild thoracolumbar levoscoliosis. There is multi-level thoracic spondylosis. XR/XR chest 2V IMPRESSION: No active cardiopulmonary disease.
[2023-02-04 09:19] LABS: MANUAL DIFF FLAG NO
[2023-02-04 09:30] LABS: Basophils Percent Auto 0.7 % (0-2); Eosinophils Absolute Auto 0.1 X10*3/uL (0.0-0.4); Eosinophils Percent Auto 1.1 % (0-4); Hematocrit 35.2 % (42.0-52.0); Hemoglobin 11.2 g/dl (14.0-18.0); Imm Gran Abs Auto 0.05 X10*3/uL (0.00-0.03); Imm Gran Pct Auto 0.9 % (0.0-0.4); Immature Retic Fraction 21.1 % (2.3-13.4); Lymphocytes Absolute Auto 1.4 X10*3/uL (1.2-4.9); Lymphocytes Percent Auto 24.3 % (20-40); Mean Corpuscular HGB Conc 31.8 g/dl (31.0-36.0); Mean Corpuscular Hemoglobin 26.4 pg (27.0-33.0); Mean Corpuscular Volume 82.8 fL (80.0-98.0); Mean Platelet Volume 10.2 fL (9.4-12.4); Monocytes Absolute Auto 0.5 X10*3/uL (0.1-1.2); Monocytes Percent Auto 9.6 % (2-11); Neutrophils Absolute Auto 3.6 x10*3/uL (2.0-8.3); Neutrophils Percent Auto 63.4 % (45-73); Platelet Count 209 X10*3/uL (160-400); Red Blood Count 4.25 X10*6/uL (4.60-5.80); Red Cell Distribution Width 15.9 % (11.0-16.0); Retic HGB Equivalent 28.7 pg (30.0-35.0); Reticulocyte Percent 2.6 % (0.5-1.8); Reticulocytes Absolute 0.112 X10*6/uL (0.026-0.095); White Blood Count 5.6 X10*3/uL (4.8-10.8)
[2023-02-04 10:15] LABS: Alanine Aminotransferase 12 U/L (0-40); Albumin Level 3.8 g/dL (3.5-5.0); Alkaline Phosphatase 93 U/L (39-117); Anion Gap 14 (12-20); Aspartate Amino Transferase 18 U/L (5-37); Bilirubin Total 1.2 mg/dL (0.0-1.0); Blood Urea Nitrogen 16 mg/dL (9-16); Calcium 10.1 mg/dL (8.4-10.2); Carbon Dioxide 28 mmol/L (22-29); Chloride 101 mmol/L (96-108); Estimated Glomerular Filt Rate 54; Glucose Random 107 mg/dL (60-115); Iron 33 mcg/dL (45-160); Percent Iron Saturation 15 % (15-50); Potassium 4.8 mmol/L (3.3-5.1); Sodium 138 mmol/L (135-145); Total Iron Binding Capacity 219 mcg/dL (228-428); Total Protein 6.7 g/dL (6.5-8.0); Unsaturated Iron Binding 186 ug/dL
[2023-02-04 10:29] LABS: Ferritin 158 ng/mL (20-250)
[2023-02-04 10:38] LABS: B Type Natriuretic Peptide 268 pg/mL (<100)
[2023-02-04 10:40] LABS: Folate 14.2 ng/mL (> or = 4.0); Vitamin B12 428 pg/mL (200-900)
== END 2023-02-04 08:55 | disposition home or self-care (01) ==
LOC: HO.LAB 08:54
PROVIDERS: PCP Internal Medicine; Visit Provider Internal Medicine
DX: I48.0 Paroxysmal atrial fibrillation (principal); D64.9 Anemia, unspecified
CPT/HCPCS: 36415; 71046; 80053; 82607; 82728; 82746; 83540; 83880; 85025; 85045

== ENCOUNTER 2023-02-23 10:20 | Outpatient (AMB) | payer MEDICARE, SELFPAY ==
--- NOTE | 2023-02-23 10:49 | MHC.OFFVIS ---
Intake Intake Visit Reasons: ER follow up/Voiding trial Intake Note: New Patient is present for ER Follow Up Voiding Trial Urology Med: Tamsulosin Antibiotic Allergy: None Blood Thinner: Apixaban (Eliquis) Patient states that he feels that he has the urge to urinate when catheter is out. States that After ER he was on Tamsulosin for 30 days he finished coarse. Patient wants to know if he should continue the Tamsulosin. No pain or discomfort with current Catheter PVR: 0ml Allergies gabapentin Adverse Reaction (Intermediate, Verified 02/23/23 10:51) lethargy lisinopril Adverse Reaction (Intermediate, Verified 02/23/23 10:51) Cough metformin Adverse Reaction (Intermediate, Verified 02/23/23 10:51) lethargy HPI HPI Comments History of Present Illness Details Augustus is a very pleasant male. He is a patient of Dr. Peters. He seen for the following urologic conditions - urinary retention Urinary retention Recent episode seen emergency room Stout catheter placed for 1400 cc Past 4 week follow-up voiding trial Had history of progressive weakness of stream Started on combination therapy Discussed possible intervention Plan 2 week follow-up PVR and 4 month follow-up PVR [facility] Medical History (HFpEF) heart failure with preserved ejection fraction Anxiety and depression CHF (congestive heart failure) CKD (chronic kidney disease) stage 3, GFR 30-59 ml/min Hypercholesterolemia Non Hodgkin's lymphoma Obesity (BMI 30-39.9) Obesity (BMI 30-39.9) LARISSA (obstructive sleep apnea) PAF (paroxysmal atrial fibrillation) Peptic ulcer disease Physical deconditioning Thrombocytopenia Type 2 diabetes mellitus with hyperglycemia Type 2 diabetes mellitus with unspecified complications Vitamin D deficiency Surgical History H/O colonoscopy H/O lymph node biopsy History of esophagogastroduodenoscopy (EGD) History of shoulder surgery Hx of cataract extraction Family History Father Lung cancer Mother Breast cancer Sister Breast cancer Brother Substance use disorder Sister No problems noted. Son No problems noted. Daughter No problems noted. Social History Household Members: Spouse and Family Housing: House Are you a primary nonfarm animal caretaker to a significant other at home: No Do you presently have visiting nurse or other home services: No Alcohol intake: never Patient Tobacco Use Status: Never used Tobacco e-Cigarette/Vaping Use: Never Used Second Hand Smoke Exposure: No Advance Directives Date on File: 12/19/21 service: No Current occupational status: retired Cognitive needs: Yes (Walker, cane) Hearing needs: No Vision needs: Yes Review of Systems Const Denies chills and Denies fever(s) Card Reports no additional complaints and Denies syncope Resp Denies cough GI Denies abdominal pain and Denies heartburn Reports as per HPI and Denies change in libido Neuro Denies syncope Psych Denies change in libido Endo Denies change in libido Physical Exam Const General: cooperative, healthy appearing, comfortable and no acute distress Orientation/consciousness: patient oriented x3 HEENT Face and sinus: Yes normal facial exam Mouth: moist mucous membranes Neck Neck: Yes normal visual inspection, Yes full ROM and Yes trachea midline Chest Chest palpation & inspection: normal inspection of the chest Resp Effort & Inspection: normal respiratory effort, able to speak in complete sentences and no respiratory distress GI Inspection: Yes normal to inspection Back/Spine/Pelvis Cervical Spine: normal cervical lordosis Thoracic/Lumbar Spine: thoracic and lumbar spine normal to inspection Skin General skin exam: no rashes or lesions noted Neuro General: patient oriented x3, gait normal, tone normal and moves all extremities Extrem General: Yes normal to inspection and Yes capillary refill normal Office Procedures Bladder/Catheter Procedure Details: 18fr Stout catheter Instilled 120mls sterile water inserted in bladder stout catheter removed with no complications Patient urine output was 200ml in Urinal Passed Voiding trial PVR 0ml [id number] of Bladder (120ml sterile water) Procedure code (CPT) selection complete Assessment & Plan Assessment & Plan (1) Incomplete emptying of bladder due to benign prostatic hyperplasia: Code(s): N40.1 - Benign prostatic hyperplasia with lower urinary tract symptoms; R33.9 - Retention of urine, unspecified (2) Weak urinary stream: Code(s): R39.12 - Poor urinary stream (3) Urinary retention: Code(s): R33.9 - Retention of urine, unspecified Plan For 4 month follow-up Orders: Orders AMB Bladder/Catheter Procedure Today R33.9 - Retention of urine, unspecified Medications: New tamsulosin 0.4 mg PO BEDTIME 30 days 30 caps 0RF N40.1 - Benign prostatic hyperplasia with lower urinary tract symptoms, R33.9 - Retention of urine, unspecified, R35.1 - Nocturia tamsulosin 0.4 mg PO BEDTIME 90 caps 1RF 90 days N13.8 - Other obstructive and reflux uropathy, N40.1 - Benign prostatic hyperplasia with lower urinary tract symptoms, R33.9 - Retention of urine, unspecified finasteride 5 mg PO DAILY 90 tabs 1RF 90 days N13.8 - Other obstructive and reflux uropathy, N40.1 - Benign prostatic hyperplasia with lower urinary tract symptoms, R33.9 - Retention of urine, unspecified Discontinued levothyroxine 75 mcg PO DAILY 90 days 90 tabs 2RF E03.9 - Hypothyroidism, unspecified atorvastatin 40 mg PO DAILY 90 tabs 3RF Patient Instructions: Imaging studies, laboratory and physical exam results were discussed and reviewed in detail. No major barriers to patient understanding were identified. An opportunity to ask questions regarding the treatment plan was provided. All questions were answered. The patient expressed understanding and agreement with the above treatment plan. The patient is aware they should contact our office by phone for worsening of their current condition or the appearance of new urologic symptoms. Compliance is encouraged with any medications and followup testing that is ordered. It is a privilege to participate in the urologic care of your patient. If you have any questions or concerns regarding treatment for the above conditions, or other urologic issues, please do not hesitate to contact me. The office telephone contact is [phone]. This note is constructed using voice recognition software. While every effort has been made to ensure accuracy repairer shoe sticks errors may have been included. Yours sincerely, Dr Satinder Perez MD, [facility] Urology Providers of Expert, Compassionate Care for the Genitourinary System Coding Level of Care Code New Pt Level 4 (78192) Diagnoses Incomplete emptying of bladder due to benign prostatic hyperplasia N40.1; R33.9 Weak urinary stream R39.12 Urinary retention R33.9 CPT Codes Bladder/Catheter Procedure - CPT: 56139-Dzycnxxlvo of Bladder ([id number])
== END 2023-02-23 11:30 | disposition home or self-care (01) ==
PROVIDERS: PCP Internal Medicine; Visit Provider Urology
DX: N40.1 Benign prostatic hyperplasia with lower urinary tract symptoms (principal); R33.9 Retention of urine, unspecified; R39.12 Poor urinary stream
CPT/HCPCS: 51700; 99214

== ENCOUNTER → 2023-02-23 10:20 | Outpatient (BNVA) | payer MEDICARE, SELFPAY | PROVIDERS: PCP Internal Medicine; Visit Provider Urology | DX: R33.9 Retention of urine, unspecified (principal); R39.12 Poor urinary stream; N40.1 Benign prostatic hyperplasia with lower urinary tract symptoms; N13.8 Other obstructive and reflux uropathy; E11.65 Type 2 diabetes mellitus with hyperglycemia; E11.22 Type 2 diabetes mellitus with diabetic chronic kidney disease; I13.0 Hypertensive heart and chronic kidney disease with heart failure and stage 1 through stage 4 chronic kidney disease, or unspecified chronic kidney disease; N18.30 Chronic kidney disease, stage 3 unspecified; I50.30 Unspecified diastolic (congestive) heart failure; Z79.01 Long term (current) use of anticoagulants; Z79.899 Other long term (current) drug therapy | CPT/HCPCS: 51700; 99212 ==

== ENCOUNTER 2023-03-09 09:57 | Outpatient (REF) | payer MEDICARE, SELFPAY ==
[2023-03-09 11:32] LABS: B Type Natriuretic Peptide 249 pg/mL (<100)
[2023-03-09 12:13] LABS: Anion Gap 19 (12-20); Blood Urea Nitrogen 15 mg/dL (9-16); Calcium 9.8 mg/dL (8.4-10.2); Carbon Dioxide 22 mmol/L (22-29); Chloride 97 mmol/L (96-108); Estimated Glomerular Filt Rate > 60; Glucose Random 145 mg/dL (60-115); Potassium 4.5 mmol/L (3.3-5.1); Sodium 133 mmol/L (135-145)
[2023-03-09 12:38] LABS: Free T4 (Free Thyroxine) 1.23 ng/dL (0.71-1.85); Thyroid Stimulating Hormone 3.92 uIU/mL (0.32-4.0)
[2023-03-09 13:53] LABS: Creatinine Urine 248.65 mg/dL
== END 2023-03-09 09:58 | disposition home or self-care (01) ==
LOC: HO.LAB 09:57
PROVIDERS: PCP Internal Medicine; Visit Provider Urology
DX: N40.1 Benign prostatic hyperplasia with lower urinary tract symptoms (principal); R33.9 Retention of urine, unspecified; E03.9 Hypothyroidism, unspecified; I50.32 Chronic diastolic (congestive) heart failure; E11.65 Type 2 diabetes mellitus with hyperglycemia
CPT/HCPCS: 36415; 51798; 80048; 83880; 84439; 84443

== ENCOUNTER 2023-03-10 15:18 | Outpatient (AMB) | payer MEDICARE, SELFPAY ==
--- NOTE | 2023-03-10 15:20 | MHC.OFFWIV ---
Intake Vital Signs 03/10/23 15:27 BP 100/60 Blood Pressure Location Rt brachial Position Sitting Pulse 73 Pulse Source Pulse Oximeter Temp 97.5 F Temp Source Temporal Artery Scan Pulse Oximetry (%) 94 Oxygen Delivery Method Room Air Intake Visit Reasons: EP, trouble breathing, cough (masked)(lobby) Intake Note: Patient here for bad cough, very bad sob which has been for about 1 month. He states he is also hallucinating (dreaming out loud) at night. Patient Tobacco Use Status: Never used Tobacco Allergies gabapentin Adverse Reaction (Intermediate, Verified 03/15/23 06:30) lethargy lisinopril Adverse Reaction (Intermediate, Verified 03/15/23 06:30) Cough metformin Adverse Reaction (Intermediate, Verified 03/15/23 06:30) lethargy Medication List - Last Reconciled 03/15/23 by Arnie Badillo MD acetaminophen 650 mg PO Q6H PRN albuterol sulfate 90 mcg/actuation (Ventolin HFA) 1 inh inhalation QID PRN amlodipine 10 mg PO DAILY apixaban (Eliquis) 5 mg PO BID atorvastatin 40 mg PO BEDTIME cephalexin 500 mg PO BID cholecalciferol (vitamin D3) (Vitamin D3) 25 mcg PO DAILY escitalopram oxalate 10 mg PO DAILY 90 days finasteride 5 mg PO DAILY 90 days furosemide (Lasix) 20 mg PO DAILY glipizide ER 5 mg PO DAILY levofloxacin 500 mg PO DAILY levothyroxine 75 mcg PO DAILY@0600 metoprolol succinate ER 100 mg PO DAILY 90 days multivitamin 1 tab PO DAILY nystatin 1 appl See Protocol topical TID 7 days prednisone 60 mg (3 x 20 mg) PO DAILY tamsulosin 0.4 mg PO BEDTIME 30 days walker (Ultra-Light Rollator mis) As directed Do you need a note to return to daycare/school/sports/work: No HPI EP, trouble breathing, cough (masked)(lobby) HPI Details Patient presents for a sick visit. Reporting symptoms of sinus congestion, sore throat and difficulty swallowing. Low-grade fever. No family member is sick. No recent travel. Patient reports symptoms of malaise and fatigue. [facility] [place] Medical History (HFpEF) heart failure with preserved ejection fraction Anxiety and depression CHF (congestive heart failure) CKD (chronic kidney disease) stage 3, GFR 30-59 ml/min Hypercholesterolemia Non Hodgkin's lymphoma Obesity (BMI 30-39.9) Obesity (BMI 30-39.9) LARISSA (obstructive sleep apnea) PAF (paroxysmal atrial fibrillation) Peptic ulcer disease Physical deconditioning Thrombocytopenia Type 2 diabetes mellitus with hyperglycemia Type 2 diabetes mellitus with unspecified complications Vitamin D deficiency Surgical History H/O colonoscopy H/O lymph node biopsy History of esophagogastroduodenoscopy (EGD) History of shoulder surgery Hx of cataract extraction Family History Father Lung cancer Mother Breast cancer Sister Breast cancer Brother Substance use disorder Sister No problems noted. Son No problems noted. Daughter No problems noted. Social History Household Members: Spouse and Family Housing: House Are you a primary director of patient care to a significant other at home: No Do you presently have visiting nurse or other home services: No Alcohol intake: never Patient Tobacco Use Status: Never used Tobacco e-Cigarette/Vaping Use: Never Used Second Hand Smoke Exposure: No Advance Directives Date on File: 12/19/21 service: No Current occupational status: retired Cognitive needs: Yes (Walker, cane) Hearing needs: No Vision needs: Yes Physical Exam Vital Signs: Last Vital Signs Temp 97.5 F 03/10/23 15:27 Pulse 73 03/10/23 15:27 BP 100/60 03/10/23 15:27 Pulse Ox 94 03/10/23 15:27 Oxygen Delivery Method Room Air 03/10/23 15:27 Const General: cooperative and healthy appearing Nutritional Appearance: well nourished Orientation/consciousness: patient oriented x3 Limitations: no limitations HEENT Head: Yes normal to inspection Eyes General: appearance normal, both eyes and all related structures Neck Neck: Yes normal visual inspection Chest Chest palpation & inspection: normal palpation of entire chest wall Resp Other: Bilateral wheezing. Effort & Inspection: normal respiratory effort and able to speak in complete sentences Neuro General: patient oriented x3 Office Procedures Nebulizer Treatment Nebulizer Treatment [id number]/MDI RX initial, or Nebulizer Subsequent Treatment Office Meds albuterol sulfate Performing Provider: Arnie Badillo MD Administered by: Becky Mitchell RN on 03/10/23 15:59 Dose Route Admin Location Lot Number Expiration Date NDC [employer] 2.5 mg inhalation [id number] 08/09/23 0953-5024-49 [employer] Assessment & Plan Assessment & Plan (1) Pneumonia: Code(s): J18.9 - Pneumonia, unspecified organism Plan: Patient benefited from an albuterol treatment. Antibiotics and prednisone have been called in again. If symptoms do not improve, patient was encouraged to follow-up at the emergency room. Orders: Orders AMB Nebulizer Treatment 03/10/23 J18.9 - Pneumonia, unspecified organism Medications: New prednisone 60 mg (3 x 20 mg) PO DAILY 9 tabs 0RF levofloxacin 500 mg PO DAILY 7 tabs 0RF albuterol sulfate 90 mcg/actuation (Ventolin HFA) 1 inh inhalation QID PRN 8.5 grams 1RF shortness of breath or wheezing Discontinued levothyroxine 75 mcg PO DAILY 90 days 90 tabs 2RF E03.9 - Hypothyroidism, unspecified atorvastatin 40 mg PO DAILY 90 tabs 3RF Coding Level of Care Code Est Pt Level 4 (45879) Diagnoses Pneumonia J18.9 CPT Codes Nebulizer Treatment - Nebulizer Treatment, initial or subsequent: 06414-[id number]/MDI RX initial, or Nebulizer Subsequent Treatment ([id number])
[2023-03-10 15:27] VITALS: BP 100/60; PULSE 73; TEMP 36.4; O2SAT 94
== END 2023-03-10 16:18 | disposition home or self-care (01) ==
PROVIDERS: PCP Internal Medicine; Visit Provider Internal Medicine
DX: J18.9 Pneumonia, unspecified organism (principal)
CPT/HCPCS: 94640; 99214; J7613

== ENCOUNTER 2023-03-16 16:51 | Outpatient (AMB) | payer MEDICARE, SELFPAY ==
[2023-03-16 16:53] VITALS: BP 100/62; PULSE 67; O2SAT 95; BMI 32.3
--- NOTE | 2023-03-16 16:53 | MHC.PC.OV ---
Vital Signs 03/16/23 16:53 Height 5 ft 5 in Weight 194 lb BMI 32.3 BP 100/62 Blood Pressure Location Lt brachial Position Sitting Pulse 67 Pulse Source Pulse Oximeter Temp Source Skin Pulse Oximetry (%) 95 Oxygen Delivery Method Room Air Intake Visit Reasons: Swollen ankles and feet Intake Note: pt states on going swelling, bilateral ankle and leg. and stomach bloating [employer] Costume Maker Required: No Allergies gabapentin Adverse Reaction (Intermediate, Verified 03/16/23 17:16) lethargy lisinopril Adverse Reaction (Intermediate, Verified 03/16/23 17:16) Cough metformin Adverse Reaction (Intermediate, Verified 03/16/23 17:16) lethargy Medication List - Last Reconciled 03/16/23 by IVONE Taylor acetaminophen 650 mg PO Q6H PRN albuterol sulfate 90 mcg/actuation (Ventolin HFA) 1 inh inhalation QID PRN amlodipine 10 mg PO DAILY apixaban (Eliquis) 5 mg PO BID atorvastatin 40 mg PO BEDTIME cholecalciferol (vitamin D3) (Vitamin D3) 25 mcg PO DAILY escitalopram oxalate 10 mg PO DAILY 90 days finasteride 5 mg PO DAILY 90 days furosemide (Lasix) 20 mg PO DAILY glipizide ER 5 mg PO DAILY levofloxacin 500 mg PO DAILY levothyroxine 75 mcg PO DAILY@0600 metoprolol succinate ER 100 mg PO DAILY 90 days multivitamin 1 tab PO DAILY nystatin 1 appl See Protocol topical TID 7 days tamsulosin 0.4 mg PO BEDTIME 30 days walker (Ultra-Light Rollator misc) As directed Tobacco use date assessed: 03/16/23 Fall risk assessment: No Falls in past year Last assessed Fall Risk: 03/16/23 Dental Screening Dental Screen Date: 03/16/23 Did you have a dental visit in the last 12 months?: Yes Did you have a dental problem in the last 6 months where you did not have access to dental care?: No HPI Swollen ankles and feet HPI Details Patient is a 77-year-old male presents today with bilateral lower extremity swelling for the past [address] Peters. Medical history significant for hypercholesterolemia, hypertension, cognitive impairment, shortness of breath on exertion, congestive heart failure, LARISSA, restrictive lung disease - followed by pulmonology, hypothyroid, diabetes type 2, AFib-followed by Cardiology Dr. Su among others. Patient reports that he has been on Lasix 20 mg for the past 2 months with no much improvement in swelling. No chest pain. Reports that swelling is not improving in his legs. BNP 249 03/2023. Reports chronic shortness of breath on exertion. No fever or chills. Reports cough with clear mucus production, recently was treated with antibiotics for pneumonia, still has 1 more day left of antibiotic. 12/2022 Conclusions: - The left ventricular systolic function is normal.? The ? calculated ejection fraction is 67% by biplane method. ? - No obvious valvular pathology seen on this study.? ? [facility] Medical History (HFpEF) heart failure with preserved ejection fraction Anxiety and depression CHF (congestive heart failure) CKD (chronic kidney disease) stage 3, GFR 30-59 ml/min Hypercholesterolemia Non Hodgkin's lymphoma Obesity (BMI 30-39.9) Obesity (BMI 30-39.9) LARISSA (obstructive sleep apnea) PAF (paroxysmal atrial fibrillation) Peptic ulcer disease Physical deconditioning Thrombocytopenia Type 2 diabetes mellitus with hyperglycemia Type 2 diabetes mellitus with unspecified complications Vitamin D deficiency Surgical History H/O colonoscopy H/O lymph node biopsy History of esophagogastroduodenoscopy (EGD) History of shoulder surgery Hx of cataract extraction Family History Father Lung cancer Mother Breast cancer Sister Breast cancer Brother Substance use disorder Sister No problems noted. Son No problems noted. Daughter No problems noted. Social History Household Members: Spouse and Family Housing: House Are you a primary child care associate teacher to a significant other at home: No Do you presently have visiting nurse or other home services: No Alcohol intake: never Patient Tobacco Use Status: Never used Tobacco e-Cigarette/Vaping Use: Never Used Second Hand Smoke Exposure: No Advance Directives Date on File: 12/19/21 service: No Current occupational status: retired Cognitive needs: Yes (Walker, cane) Hearing needs: No Vision needs: Yes Questionnaire Thrive Questionnaire Date Thrive assessed: 01/23/23 AUDIT C Alcohol Use Questionnaire (AUDIT-C) 1. How often do you have a drink containing alcohol?: Never 2. How many drinks containing alcohol do you have on a typical day when you are drinking?: 1 or 2 3. How often do you have six or more drinks on one occasion?: Never Total Score: 0 Score Reviewed/Action Taken: No AIDAN-7 AMB Questionnaire AIDAN-7 Date AIDAN - 7 assessed: 10/21/22 Source: Developed by Drs. Simon Zhou, Latisha Huang, Ayo Rodríguez and colleagues, with an educational skye from [employer]. Review of Systems Const Denies body aches, Denies chills, Reports fatigue, Denies fever(s) and Denies headache(s) ENT Denies dizziness, Denies otalgia, Denies headache(s), Denies nasal discharge, Denies sinus pain and Denies sore throat Card Denies chest pain, Denies edema, Reports leg edema, Denies lightheadedness, Denies dyspnea and Reports dyspnea on exertion Resp Reports cough, Denies dyspnea, Reports dyspnea on exertion and Denies wheezing GI Denies abdominal pain and Reports constipation Denies dysuria Musc Denies myalgias Skin/Breast Denies rash Neuro Denies dizziness and Denies headache(s) Endo Reports fatigue Aller/Immun Denies wheezing Physical exam (Primary Care) Vital Signs: Last Vital Signs Pulse 67 03/16/23 16:53 BP 100/62 03/16/23 16:53 Pulse Ox 95 03/16/23 16:53 Oxygen Delivery Method Room Air 03/16/23 16:53 BMI result Body Mass Index 32.3 Tobacco/Smoking Status: Tobacco use Status Tobacco use date assessed 03/16/23 03/16/23 16:54 Patient Tobacco Use Status Never used Tobacco 03/16/23 16:54 e-Cigarette/Vaping Use Never Used 03/16/23 16:54 Thrive Assessment: Date of Thrive Assessment Date Thrive assessed 01/23/23 03/16/23 16:54 Const General: cooperative and no acute distress Orientation/consciousness: patient oriented x3 HENMT Head: Yes normocephalic and Yes atraumatic Mouth: oropharynx normal and moist mucous membranes Throat: Yes posterior oropharynx normal Eyes General: appearance normal, both eyes and all related structures Neck Neck: Yes normal visual inspection, Yes full ROM and Yes no lymphadenopathy Resp Effort & Inspection: normal respiratory effort and able to speak in complete sentences Auscultation: clear to auscultation bilaterally, no crackles, no rales, no rhonchi and no wheezes Cardio Rate: regular rate Rhythm: regular rhythm Heart sounds: S1 normal heart sound present, S2 normal heart sound present and no murmurs GI Auscultation: normal bowel sounds Skin General skin exam: no rashes or lesions noted Neuro General: patient oriented x3 Gait exam (Neuro): Normal gait present Extrem Other: Bilateral lower extremity knee down with pitting edema +1 General: Yes full ROM Assessment and Plan Assessment & Plan (1) Swelling of lower extremity: Code(s): M79.89 - Other specified soft tissue disorders Plan: Bilateral lower extremity with pitting edema +1 from knee down. Elevate bilateral lower extremity. Apply compression stockings on during the day and off at night. Limit salt consumption. Will increase furosemide 20 mg to 2 times a day for 3 days, in these 3 days hold amlodipine due to low blood pressure. Resume amlodipine after 3 days when finishing furosemide 2 times a day. Monitor blood pressures daily at home. Blood work has been ordered as well to rule out anemia. (2) CHF (congestive heart failure): Code(s): I50.9 - Heart failure, unspecified Plan: Patient was encouraged to call his vp account director for an appointment. Plan Keep appointment with PCP as scheduled or follow-up sooner as needed. Patient agreed with the plan Orders: Orders IRON PROFILE Today M79.89 - Other specified soft tissue disorders Complete Blood Count no Diff Today M79.89 - Other specified soft tissue disorders Liver Panel Today M79.89 - Other specified soft tissue disorders Medications: Discontinued levothyroxine 75 mcg PO DAILY 90 days 90 tabs 2RF E03.9 - Hypothyroidism, unspecified atorvastatin 40 mg PO DAILY 90 tabs 3RF Coding Level of Care Code Est Pt Level 3 (96531) Diagnoses Swelling of lower extremity M79.89 CHF (congestive heart failure) I50.9
== END 2023-03-16 17:38 | disposition home or self-care (01) ==
PROVIDERS: PCP Internal Medicine; Visit Provider Nurse Practitioner Family
DX: M79.89 Other specified soft tissue disorders (principal); I50.9 Heart failure, unspecified
CPT/HCPCS: 99213

== ENCOUNTER 2023-03-17 11:17 | Outpatient (REF) | payer MEDICARE, SELFPAY ==
[2023-03-17 11:52] LABS: Hematocrit 34.5 % (42.0-52.0); Hemoglobin 11.1 g/dl (14.0-18.0); Mean Corpuscular HGB Conc 32.2 g/dl (31.0-36.0); Mean Corpuscular Hemoglobin 24.8 pg (27.0-33.0); Mean Platelet Volume 10.1 fL (9.4-12.4); Platelet Count 187 X10*3/uL (160-400); Red Blood Count 4.48 X10*6/uL (4.60-5.80); Red Cell Distribution Width 15.6 % (11.0-16.0); White Blood Count 7.8 X10*3/uL (4.8-10.8)
[2023-03-17 12:31] LABS: Alanine Aminotransferase 22 U/L (0-40); Albumin Level 3.7 g/dL (3.5-5.0); Alkaline Phosphatase 99 U/L (39-117); Aspartate Amino Transferase 27 U/L (5-37); Bilirubin Direct 0.5 mg/dL (0.0-0.5); Iron 32 mcg/dL (45-160); Percent Iron Saturation 14 % (15-50); Total Iron Binding Capacity 229 mcg/dL (228-428); Total Protein 6.1 g/dL (6.5-8.0); Unsaturated Iron Binding 197 ug/dL
== END 2023-03-17 11:18 | disposition home or self-care (01) ==
LOC: HO.LAB 11:17
PROVIDERS: PCP Internal Medicine; Visit Provider Nurse Practitioner Family
DX: M79.89 Other specified soft tissue disorders (principal); D64.9 Anemia, unspecified
CPT/HCPCS: 36415; 80076; 83540; 85027

== ENCOUNTER 2023-03-18 08:44 | Outpatient (AMB) | payer MEDICARE, SELFPAY ==
[2023-03-18 08:46] VITALS: BP 100/60; PULSE 80; BMI 32.3
--- NOTE | 2023-03-18 08:46 | MHC.OFFVIS ---
Intake Vital Signs 03/18/23 08:46 Height 5 ft 5 in Weight 194 lb 0.108 oz BMI 32.3 BP 100/60 Blood Pressure Location Rt brachial Position Sitting Pulse 80 Pulse Source Pulse Oximeter Intake Visit Reasons: Swelling of legs & feet Intake Note: sweelling of legs & feet no energy and s/b Facility Worker Required: No Allergies gabapentin Adverse Reaction (Intermediate, Verified 03/18/23 09:46) lethargy lisinopril Adverse Reaction (Intermediate, Verified 03/18/23 09:46) Cough metformin Adverse Reaction (Intermediate, Verified 03/18/23 09:46) lethargy Medication List - Last Reconciled 03/18/23 by TISHA Garcia acetaminophen 650 mg PO Q6H PRN albuterol sulfate 90 mcg/actuation (Ventolin HFA) 1 inh inhalation QID PRN apixaban (Eliquis) 5 mg PO BID atorvastatin 40 mg PO BEDTIME cholecalciferol (vitamin D3) (Vitamin D3) 25 mcg PO DAILY escitalopram oxalate 10 mg PO DAILY 90 days finasteride 5 mg PO DAILY 90 days furosemide (Lasix) 20 mg PO DAILY glipizide ER 5 mg PO DAILY levofloxacin 500 mg PO DAILY levothyroxine 75 mcg PO DAILY@0600 metoprolol succinate ER 100 mg PO DAILY 90 days multivitamin 1 tab PO DAILY nystatin 1 appl See Protocol topical TID 7 days tamsulosin 0.4 mg PO BEDTIME 30 days walker (Ultra-Light Rollator misc) As directed HPI Swelling of legs & feet HPI Details Augustus is a 77-year-old male with past medical history of mild obesity, diabetes, hyperlipidemia, obstructive sleep apnea with CPAP use, paroxysmal atrial fibrillation who presents for follow-up with report of shortness of breath and swelling. Today he states that he has had shortness of breath for the last few months. He was hospitalized in December with pneumonia then had recurrent admission with scrotal cellulitis. He says his shortness of breath has not improved since that time, he actually states it has worsened. He does have PND, orthopnea, significant lower leg edema. He sleeps in the recliner for a few hours each night. When he is in bed he uses his CPAP. He was started on low-dose diuretic by his primary care provider in January. Since then his swelling has not improved. His weight is up 24 lb in the last 2 months. He is noticing abdominal distension. He had just put his amlodipine on hold as directed by PCP. Lasix dose was increased yesterday up to 40 mg a day for 3 days. He describes shortness of breath and leg pain with walking. Vague report of uncomfortable feeling in his chest. No clear exertional chest discomfort. He does not feel heart palpitations, dizziness, presyncope, syncope. No falls. No bleeding issues. Taking meds as directed. is present. [facility] Medical History (HFpEF) heart failure with preserved ejection fraction Anxiety and depression CHF (congestive heart failure) CKD (chronic kidney disease) stage 3, GFR 30-59 ml/min Hypercholesterolemia Non Hodgkin's lymphoma Obesity (BMI 30-39.9) Obesity (BMI 30-39.9) LARISSA (obstructive sleep apnea) PAF (paroxysmal atrial fibrillation) Peptic ulcer disease Physical deconditioning Thrombocytopenia Type 2 diabetes mellitus with hyperglycemia Type 2 diabetes mellitus with unspecified complications Vitamin D deficiency Surgical History H/O colonoscopy H/O lymph node biopsy History of esophagogastroduodenoscopy (EGD) History of shoulder surgery Hx of cataract extraction Family History Father Lung cancer Mother Breast cancer Sister Breast cancer Brother Substance use disorder Sister No problems noted. Son No problems noted. Daughter No problems noted. Social History Household Members: Spouse and Family Housing: House Are you a primary plant health care technician to a significant other at home: No Do you presently have visiting nurse or other home services: No Alcohol intake: never Patient Tobacco Use Status: Never used Tobacco e-Cigarette/Vaping Use: Never Used Second Hand Smoke Exposure: No Advance Directives Date on File: 12/19/21 service: No Current occupational status: retired Cognitive needs: Yes (Walker, cane) Hearing needs: No Vision needs: Yes Review of Systems Const All systems reviewed & are unremarkable except as noted in HPI and below ENT Reports dizziness Card Reports chest pain, Denies chest pain at rest, Denies chest pain with activity, Denies rapid heart rate, Denies pedal edema, Denies edema, Reports leg edema, Denies lightheadedness, Denies palpitations, Denies dyspnea, Reports dyspnea on exertion and Reports orthopnea Resp Denies cough, Denies dyspnea and Reports dyspnea on exertion GI Denies hematochezia and Denies change in stool character Musc Denies abnormal gait, Reports limited range of motion, Reports muscle cramps, Denies muscle weakness, Denies numbness, Denies radiating pain into limb, Denies stiffness and Denies tingling Neuro Denies abnormal gait, Reports dizziness, Denies numbness and Denies tingling Endo Denies palpitations Physical Exam Vital Signs: Last Vital Signs Pulse 80 03/18/23 08:46 BP 100/60 03/18/23 08:46 BMI result Body Mass Index 32.3 Const General: cooperative, comfortable and no acute distress Orientation/consciousness: patient oriented x3 Neck Neck: Yes normal visual inspection Resp Other: Few faint rales noted in left base Effort & Inspection: normal respiratory effort Auscultation: clear to auscultation bilaterally, no crackles, rales (Faint left base), no rhonchi and no wheezes Cardio Jugular venous distension: no JVD Rate: regular rate Rhythm: abnormal rhythm Heart sounds: S1 normal heart sound present, S2 normal heart sound present, no murmurs and no rubs GI Inspection: Yes normal to inspection Neuro General: patient oriented x3 Extrem Other: Gross pitting edema of his lower extremities bilateral, discomfort with palpation of each catheterization Psych Appearance: grossly normal Mental Status: mental status grossly normal Speech and movement: Normal speech and movement present Office Procedures EKG Details: Today, read by me, atrial fibrillation with PVC, nonspecific ST/ T-wave abnormality, rate 79 [id number], Complete Assessment & Plan Assessment & Plan (1) CHF (congestive heart failure): Code(s): I50.9 - Heart failure, unspecified Plan: Increase in shortness of breath over the last few months. Pneumonia admission in December and breathing has gradually worsened since then. Echocardiogram done 12/30/2022 showed EF 67%, no valve abnormalities, mild increase in the LV thickness. Started on low-dose Lasix in January without improvement in his symptom or swelling. At present he has gross pitting edema in his lower extremities and weight is up 24 lb in the last 2 months. He described PND, orthopnea, sleep in the recliner a few hours each night. His breathing appears comfortable at rest but he describes significant shortness of breath with mobility. He has a few rales noted in left base. Labs done on 03/09/2023 showed BNP 249. His PCP stopped amlodipine yesterday and increased his Lasix up to 40 mg daily. On examination today appears to have decompensated heart failure. An EKG confirms atrial fibrillation, rate seems controlled. Reviewed case with Dr. Su. With his recent pneumonia and hospital admissions it is possible that his EF has reduced and with the recurrent AFib contributed to his heart failure findings. Offered hospital evaluation/admission and he is agreeable. He tells me he is feeling awful. Report called to emergency room provider. Patient being transported to the emergency room via wheelchair. is present. (2) Swelling of lower extremity: Code(s): M79.89 - Other specified soft tissue disorders Plan: Gross pitting edema (3) SOB (shortness of breath): Code(s): R06.02 - Shortness of breath (4) Afib: Code(s): I48.91 - Unspecified atrial fibrillation Plan: History of AFib, previously on amiodarone, last cardioversion 11/2021. Clinically in sinus rhythm on last office visit. Last hospital EKG in December shows sinus rhythm. Notes indicate that he did not feel any different before or after last cardioversion and if he had recurrent AFib would likely treat with rate control. EKG today showing AFib, nonspecific ST and T-wave abnormality, rate 79. He is currently on metoprolol XL 100 mg daily. Heart rate seems controlled based on EKG today. Continue Eliquis for anticoagulation. No bleeding issues reported. (5) LARISSA (obstructive sleep apnea): Code(s): G47.33 - Obstructive sleep apnea (adult) (pediatric) Plan: Wearing CPAP mask only few hours each night. Spends a few hours each night in the recliner Medications: Discontinued levothyroxine 75 mcg PO DAILY 90 days 90 tabs 2RF E03.9 - Hypothyroidism, unspecified atorvastatin 40 mg PO DAILY 90 tabs 3RF Coding Level of Care Code Est Pt Level 5 (42252) Diagnoses CHF (congestive heart failure) I50.9 Swelling of lower extremity M79.89 SOB (shortness of breath) R06.02 Afib I48.91 LARISSA (obstructive sleep apnea) G47.33 CPT Codes EKG - CPT: 21875-Vpyipqyuxjqeslwol, Complete ([id number]) Time Spent (min) 36 Comment Chart review, documentation, interview, assessment, ER report, Dr. Neff
== END 2023-03-18 09:49 | disposition home or self-care (01) ==
PROVIDERS: PCP Internal Medicine; Visit Provider Nurse Practitioner Family
DX: I50.9 Heart failure, unspecified (principal); M79.89 Other specified soft tissue disorders; R06.02 Shortness of breath; I48.91 Unspecified atrial fibrillation; G47.33 Obstructive sleep apnea (adult) (pediatric)
CPT/HCPCS: 93010; 99215

== ENCOUNTER → 2023-03-18 08:44 | Outpatient (BNVA) | payer MEDICARE, SELFPAY | PROVIDERS: PCP Internal Medicine; Visit Provider Nurse Practitioner Family ==

== ENCOUNTER 2023-03-18 09:39 | Inpatient (IN) | payer MEDICARE, SELFPAY ==
--- NOTE | ~2023-03-18 | XR_ITS ---
EXAMINATION: XR CHEST CLINICAL INFORMATION: Shortness of breath. COMPARISON: 02/04/2023 TECHNIQUE: 2 views of the chest were obtained. FINDINGS: Low lung volumes. Left lower lobe consolidation. Small left pleural effusion. Cardiac silhouette is unchanged. XR/XR chest 2V IMPRESSION: Left lower lobe pneumonia. Small left pleural effusion. Follow-up until resolution is advised.
--- NOTE | ~2023-03-18 | CT_ITS ---
EXAMINATION: CT CHEST WITHOUT CONTRAST CLINICAL INFORMATION: Pneumonia. COMPARISON: 12/29/2022 TECHNIQUE: Multidetector volumetric CT imaging of the chest was done. Axial MIP volume rendering provided. Sagittal and coronal reformatted images were obtained. This CT examination was performed using dose optimization techniques as appropriate, variously including the following: *Automated exposure control *Adjustment of mA and/or kV according to patient size (this includes techniques or standardized protocols for targeted exams where dose is matched to indication/reason for exam; i.e. extremities or head) *Use of iterative reconstruction technique DLP: 256 mGy-cm FINDINGS: LUNGS: There has been interval resolution of bilateral multilobar consolidation. There is bilateral lower lobe passive atelectasis related to pleural effusions. Central airways are patent. MEDIASTINUM: No bulky axillary, hilar or mediastinal lymphadenopathy. Previously demonstrated mediastinal lymphadenopathy has improved. Heart is enlarged. No pericardial effusion. Ascending thoracic aorta measures 4.0 x 4.0 cm in transverse dimension. The pulmonary trunk is dilated. CORONARY ARTERY CALCIFICATION: Severe PLEURA: Large bilateral pleural effusions. UPPER ABDOMEN: Ascites. Peripheral wedge-shaped low-attenuation lesion questionable for splenic infarct. OSSEOUS STRUCTURES: No destructive bone lesions. CT/CT chest wo IV con IMPRESSION: Interval resolution of bilateral multilobar consolidation. Large bilateral pleural effusions increased from prior. New abdominal ascites.
[2023-03-18 09:43] VITALS: BP 137/89; PULSE 82; RESP 20; TEMP 36.8; O2SAT 96; BMI 32.3
--- NOTE | 2023-03-18 09:49 | ECG_ITS ---
Test Reason : afib Blood Pressure : / mmHG Vent. Rate : 076 BPM Atrial Rate : 000 BPM P-R Int : 000 ms QRS Dur : 076 ms QT Int : 394 ms P-R-T Axes : 000 018 063 degrees QTc Int : 443 ms Atrial fibrillation Abnormal ECG When compared with ECG of 29-DEC-2022 11:25, Atrial fibrillation has replaced Sinus rhythm Referred By: Generic ED Physician Electronically Signed By:Tyler Chapin
[2023-03-18 10:07] LABS: MANUAL DIFF FLAG NO
[2023-03-18 10:08] LABS: Basophils Percent Auto 0.1 % (0-2); Eosinophils Absolute Auto 0.1 X10*3/uL (0.0-0.4); Hematocrit 36.9 % (42.0-52.0); Imm Gran Abs Auto 0.07 X10*3/uL (0.00-0.03); Lymphocytes Percent Auto 14.2 % (20-40); Mean Corpuscular HGB Conc 32.5 g/dl (31.0-36.0); Mean Corpuscular Hemoglobin 24.8 pg (27.0-33.0); Mean Corpuscular Volume 76.2 fL (80.0-98.0); Mean Platelet Volume 9.5 fL (9.4-12.4); Monocytes Absolute Auto 0.6 X10*3/uL (0.1-1.2); Monocytes Percent Auto 8.6 % (2-11); Neutrophils Absolute Auto 5.5 x10*3/uL (2.0-8.3); Neutrophils Percent Auto 75.1 % (45-73); Platelet Count 175 X10*3/uL (160-400); Red Blood Count 4.84 X10*6/uL (4.60-5.80); Red Cell Distribution Width 15.9 % (11.0-16.0); White Blood Count 7.3 X10*3/uL (4.8-10.8)
--- NOTE | 2023-03-18 10:25 | ED.SOB ---
HPI - SOB/Dyspnea General Chief Complaint: Arrhythmia/Palpitations Stated Complaint: heart failure Time Seen by Provider: 03/18/23 10:16 Source: patient and family Mode of arrival: ambulatory History of Present Illness HPI Narrative: 77-year-old male who is referred in by Cardiology for increasing shortness of breath and noted to be in atrial fibrillation again, currently on chronic anticoagulation despite having gone through an ablation procedure. Patient reports he has been short of breath for couple of months and has had a weight gain and is already on Lasix 20 mg. He reports bilateral lower extremity edema and orthopnea but reports that his cough is chronic in nature and denies fevers but has had chills. Patient endorses that he was recently evaluated at urgent care for the shortness of breath and was started on albuterol, prednisone, as well as an antibiotic. Related Data Home Medications Medication Instructions Recorded Confirmed cholecalciferol (vitamin D3) 25 25 mcg PO DAILY 12/06/21 03/18/23 mcg (1,000 unit) tablet (Vitamin D3) acetaminophen 325 mg tablet 650 mg PO Q6H PRN Pain 12/29/22 03/18/23 levothyroxine 75 mcg tablet 75 mcg PO DAILY@0600 01/09/23 03/18/23 atorvastatin 40 mg tablet 40 mg PO BEDTIME 01/22/23 03/18/23 multivitamin 1 tab PO DAILY 03/10/23 03/18/23 Previous Rx's Medication Instructions Recorded metoprolol succinate 100 mg 100 mg PO DAILY 90 days #90 tabs 06/14/22 tablet,extended release 24 hr glipizide 5 mg tablet, extended 5 mg PO DAILY #90 tabs 10/21/22 release 24 hr walker (Ultra-Light Rollator [facility]) #1 ea 01/15/23 apixaban 5 mg tablet (Eliquis) 5 mg PO BID #180 tabs 01/18/23 nystatin 100,000 unit/gram topical 1 appl topical TID 7 days #60 grams 01/24/23 powder furosemide 20 mg tablet (Lasix) 20 mg PO DAILY #30 tabs 02/04/23 escitalopram oxalate 10 mg tablet 10 mg PO DAILY 90 days #90 tabs 02/18/23 finasteride 5 mg tablet 5 mg PO DAILY 90 days #90 tabs 02/23/23 tamsulosin 0.4 mg capsule 0.4 mg PO BEDTIME 30 days #30 caps 02/23/23 albuterol sulfate 90 mcg/actuation 1 inh inhalation QID PRN shortness 03/10/23 aerosol inhaler (Ventolin HFA) of breath or wheezing #8.5 grams levofloxacin 500 mg tablet 500 mg PO DAILY #7 tabs 03/10/23 Allergies Allergy/AdvReac Type Severity Reaction Status Date / Time gabapentin AdvReac Intermediate lethargy Verified 03/18/23 09:46 lisinopril AdvReac Intermediate Cough Verified 03/18/23 09:46 metformin AdvReac Intermediate lethargy Verified 03/18/23 09:46 Review of Systems Review of Systems: Pertinent positives and negatives as stated in [facility] Past Medical History Source: nursing notes reviewed Medical History (HFpEF) heart failure with preserved ejection fraction Anxiety and depression CHF (congestive heart failure) CKD (chronic kidney disease) stage 3, GFR 30-59 ml/min Hypercholesterolemia Non Hodgkin's lymphoma Obesity (BMI 30-39.9) Obesity (BMI 30-39.9) LARISSA (obstructive sleep apnea) PAF (paroxysmal atrial fibrillation) Peptic ulcer disease Physical deconditioning Thrombocytopenia Type 2 diabetes mellitus with hyperglycemia Type 2 diabetes mellitus with unspecified complications Vitamin D deficiency Surgical History H/O colonoscopy H/O lymph node biopsy History of esophagogastroduodenoscopy (EGD) History of shoulder surgery Hx of cataract extraction Family History Family History Father Lung cancer Mother Breast cancer Sister Breast cancer Brother Substance use disorder Sister No problems noted. Son No problems noted. Daughter No problems noted. Social History Social History Household Members: Spouse and Family Housing: House Are you a primary elderly caregiver to a significant other at home: No Do you presently have visiting nurse or other home services: No Alcohol intake: never Patient Tobacco Use Status: Never used Tobacco Smoked in Last 30 Days: No e-Cigarette/Vaping Use: Never Used Second Hand Smoke Exposure: No Use of substances other than those prescribed or required for medical reasons: No Advance Directives: Yes Advance Directives on File: Yes Advance Directives Date on File: 12/19/21 service: No Current occupational status: retired Cognitive needs: Yes (Walker, cane) Hearing needs: No Vision needs: Yes Physical Exam Vital Signs: Vital Signs: Last Vital Signs Temp 98.3 F 03/18/23 09:43 Pulse 77 03/18/23 14:39 Resp 14 03/18/23 14:39 BP 107/61 03/18/23 14:39 Pulse Ox 94 03/18/23 14:39 O2 Del Method Room Air 03/18/23 14:39 BMI result Body Mass Index 32.3 VITAL SIGNS: Reviewed. GENERAL: Well developed, well nourished, in no acute distress. HEAD: Normocephalic/atraumatic EYES: PERRLA, EOMI EARS: Ext canals without abnormality, TMs non-bulging and non-erythematous NOSE: Nares patent bilateral OROPHARYNX: no oral lesions noted, posterior pharynx clear NECK: Supple, no adenopathy LUNGS: Decreased breath sounds on the left otherwise I do not appreciate any rales/rhonchi/crackles. SpO2<94> CARDIOVASCULAR: Regular rate and rhythm without noted murmurs, no JVD but bilateral 2+ pitting edema ABDOMEN: Soft, non-tender, non-distended with bowel sounds. MUSCULOSKELETAL: No tenderness, deformities, or effusions noted on gross inspection. EXTREMITIES: No cyanosis, clubbing or edema. SKIN: Inspection of the skin reveals no rashes NEUROLOGIC: Alert and oriented x 4. Strength and sensation to light touch were grossly intact x 4. Medications Administered Discontinued Medications Generic Name Dose Route Start Last Admin Trade Name Freq PRN Reason Stop Dose Admin Piperacillin Sod/Tazobactam 50 mls @ 100 mls/hr 03/18/23 11:41 03/18/23 14:00 Sod 3.375 gm/ Sodium Chloride IV 03/18/23 12:10 Infused ONCE ONE Infusion Medical Decision Making Medical Decision Making [facility] Narrative: 77-year-old male with history and clinical presentation, DDX: CHF exacerbation, pneumonia, medication side effect (steroids), very low clinical suspicion for ACS. I reviewed all investigations and on hematologic indices there is no leukocytosis but there is a noted left shift, anemia appears to be chronically stable and no thrombocytopenia. Patient has been afebrile, however on chest x-ray there is identification of left lower lobe pneumonia and otherwise my interpretation is in agreement with radiology's impression. I did discuss this result with the patient at bedside and he now feels that this makes sense, he was treated for a pneumonia in January but there is a possibility the did not completely resolve, patient received antibiotics within the does and needed time frame but at this time is not meeting any SIRS criteria. Will proceed with CT of the chest to better characterize this persistent pneumonia. Chemistry indices are without electrolyte or liver enzyme abnormalities except for a slight bump in the total bilirubin, BNP is 290 but patient is not hypoxic and will treat with 40 mg of IV Lasix. However, I do not feel that this is patient's primary issue with dyspnea. My prelim read of CT scan demonstrates bilateral pleural effusions. Signed out to Dr Ellis with f/u CT scan and likely admission. Differential Diagnosis Differential Diagnoses: The differential diagnosis associated with the presentation includes Please see the discussion above Admission/Observation Consideration of admission/observation: Escalation of care including admission/observation considered Please see the discussion above Lab Data MDM Lab Attestation statement: I reviewed the patient's lab results. Please see the discussion above 03/18/23 10:00 03/18/23 10:00 Labs: Lab Results 03/18/23 03/18/23 03/18/23 Range/Units 10:00 10:00 10:00 WBC 7.3 (4.8-10.8) X10*3/uL RBC 4.84 (4.60-5.80) X10*6/uL Hgb 12.0 L (14.0-18.0) g/dl Hct 36.9 L (42.0-52.0) % MCV 76.2 L (80.0-98.0) fL MCH 24.8 L (27.0-33.0) pg MCHC 32.5 (31.0-36.0) g/dl RDW 15.9 (11.0-16.0) % Plt Count 175 (160-400) X10*3/uL MPV 9.5 (9.4-12.4) fL Immature Gran % (Auto) 1.0 H (0.0-0.4) % Neut % (Auto) 75.1 H (45-73) % Lymph % (Auto) 14.2 L (20-40) % [place] % (Auto) 8.6 (2-11) % Eos % (Auto) 1.0 (0-4) % Baso % (Auto) 0.1 (0-2) % Lymph # (Auto) 1.0 L (1.2-4.9) X10*3/uL [place] # (Auto) 0.6 (0.1-1.2) X10*3/uL Eos # (Auto) 0.1 (0.0-0.4) X10*3/uL Baso # (Auto) 0.0 (0.0-0.2) X10*3/uL Abs Immat Gran (auto) 0.07 H (0.00-0.03) X10*3/uL Absolute Neuts (auto) 5.5 (2.0-8.3) x10*3/uL Absolute Nucleated RBC 0.000 (0.0-0.012) X10*3/uL Nucleated RBC % (auto) 0.0 (0.0-0.2) /100WBC Sodium 131 L (135-145) mmol/L Potassium 4.0 (3.3-5.1) mmol/L Chloride 95 L (96-108) mmol/L Carbon Dioxide 28 (22-29) mmol/L Anion Gap 12 (12-20) BUN 15 (9-16) mg/dL Creatinine 1.07 (0.5-1.4) mg/dL Estim Creat Clear Calc 57.0 Estimated GFR > 60 Random Glucose 125 H (60-115) mg/dL Lactic Acid (0.5-2.0) mmol/L Calcium 9.4 (8.4-10.2) mg/dL Total Bilirubin 1.1 H (0.0-1.0) mg/dL Direct Bilirubin 0.5 (0.0-0.5) mg/dL AST 26 (5-37) U/L ALT 23 (0-40) U/L Alkaline Phosphatase 108 (39-117) U/L Troponin I High Sens < 2.7 D (<3.5-35.0) ng/L B-Natriuretic Peptide (<100) pg/mL Total Protein 6.6 (6.5-8.0) g/dL Albumin 3.9 (3.5-5.0) g/dL Lipase 55 (8-78) U/L 03/18/23 03/18/23 Range/Units 10:00 12:44 WBC (4.8-10.8) X10*3/uL RBC (4.60-5.80) X10*6/uL Hgb (14.0-18.0) g/dl Hct (42.0-52.0) % MCV (80.0-98.0) fL MCH (27.0-33.0) pg MCHC (31.0-36.0) g/dl RDW (11.0-16.0) % Plt Count (160-400) X10*3/uL MPV (9.4-12.4) fL Immature Gran % (Auto) (0.0-0.4) % Neut % (Auto) (45-73) % Lymph % (Auto) (20-40) % [place] % (Auto) (2-11) % Eos % (Auto) (0-4) % Baso % (Auto) (0-2) % Lymph # (Auto) (1.2-4.9) X10*3/uL [place] # (Auto) (0.1-1.2) X10*3/uL Eos # (Auto) (0.0-0.4) X10*3/uL Baso # (Auto) (0.0-0.2) X10*3/uL Abs Immat Gran (auto) (0.00-0.03) X10*3/uL Absolute Neuts (auto) (2.0-8.3) x10*3/uL Absolute Nucleated RBC (0.0-0.012) X10*3/uL Nucleated RBC % (auto) (0.0-0.2) /100WBC Sodium (135-145) mmol/L Potassium (3.3-5.1) mmol/L Chloride (96-108) mmol/L Carbon Dioxide (22-29) mmol/L Anion Gap (12-20) BUN (9-16) mg/dL Creatinine (0.5-1.4) mg/dL Estim Creat Clear Calc Estimated GFR Random Glucose (60-115) mg/dL Lactic Acid 1.1 (0.5-2.0) mmol/L Calcium (8.4-10.2) mg/dL Total Bilirubin (0.0-1.0) mg/dL Direct Bilirubin (0.0-0.5) mg/dL AST (5-37) U/L ALT (0-40) U/L Alkaline Phosphatase (39-117) U/L Troponin I High Sens (<3.5-35.0) ng/L B-Natriuretic Peptide 290 H (<100) pg/mL Total Protein (6.5-8.0) g/dL Albumin (3.5-5.0) g/dL Lipase (8-78) U/L Independent Interpretation I performed an independent interpretation of an: EKG Interpretation: Atrial fibrillation, HR-76, no STEMI, QRS/QTC is within normal limits. Radiology Impression Discussion of test interpretation with radiology: I have reviewed the radiologist's reading. Radiologist Impression: Please see the discussion above External Record Review External record reviewed: Outpatient record and Prior outpatient labs Chronic Conditions Patient?s care impacted by: Diabetes Critical Care Time Critical Care Time Critical Care Time: Yes Total Critical Care Time: 30 Attestation: I personally attest to this time spent taking care of the patient. Discharge Plan Discharge Clinical Impression: CHF exacerbation, Pneumonia, Bilateral pleural effusion Patient Disposition: Still a Patient Prescriptions: No Action metoprolol succinate 100 mg tablet extended release 24 hr 100 mg PO DAILY 90 Days Qty: 90 2RF Eliquis 5 mg tablet 5 mg PO BID Qty: 180 3RF furosemide [Lasix] 20 mg tablet 20 mg PO DAILY Qty: 30 2RF escitalopram oxalate 10 mg tablet 10 mg PO DAILY 90 Days Qty: 90 2RF cholecalciferol (vitamin D3) [Vitamin D3] 25 mcg (1,000 unit) Tablet 25 mcg PO DAILY atorvastatin 40 mg tablet 40 mg PO BEDTIME nystatin 100,000 unit/gram Powder 1 appl topical TID 7 Days Qty: 60 1RF Protocol: Apply to: Apply to: Affected area acetaminophen 325 mg Tablet 650 mg PO Q6H PRN (Reason: Pain) levothyroxine 75 mcg tablet 75 mcg PO DAILY@0600 glipizide 5 mg tablet extended release 24hr 5 mg PO DAILY Qty: 90 2RF (DME) Ultra-Light Rollator Misc See Rx Instructions .Route Qty: 1 0RF Rx Instructions: As directed multivitamin Tablet 1 tab PO DAILY levofloxacin 500 mg tablet 500 mg PO DAILY Qty: 7 0RF albuterol sulfate [Ventolin HFA] 90 mcg/actuation HFA aerosol inhaler 1 inh inhalation QID PRN (Reason: shortness of breath or wheezing) Qty: 8.5 1RF tamsulosin 0.4 mg capsule 0.4 mg PO BEDTIME 30 Days Qty: 30 0RF finasteride 5 mg tablet 5 mg PO DAILY 90 Days Qty: 90 1RF
[2023-03-18 10:31] LABS: Alanine Aminotransferase 23 U/L (0-40); Albumin Level 3.9 g/dL (3.5-5.0); Alkaline Phosphatase 108 U/L (39-117); Anion Gap 12 (12-20); Aspartate Amino Transferase 26 U/L (5-37); Bilirubin Direct 0.5 mg/dL (0.0-0.5); Bilirubin Total 1.1 mg/dL (0.0-1.0); Blood Urea Nitrogen 15 mg/dL (9-16); Calcium 9.4 mg/dL (8.4-10.2); Carbon Dioxide 28 mmol/L (22-29); Chloride 95 mmol/L (96-108); Estimated Glomerular Filt Rate > 60; Glucose Random 125 mg/dL (60-115); Lipase 55 U/L (8-78); Sodium 131 mmol/L (135-145); Total Protein 6.6 g/dL (6.5-8.0)
[2023-03-18 10:40] LABS: B Type Natriuretic Peptide 290 pg/mL (<100); Troponin-I High Sensitivity < 2.7 ng/L (<3.5-35.0)
[2023-03-18 10:47] VITALS: BP 122/69; PULSE 86; RESP 19; O2SAT 95
--- NOTE | 2023-03-18 10:53 | PC.NURSE ---
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 20G IV placed right AC. pt pending ED provider, no new orders at this time.
[2023-03-18 12:57] VITALS: BP 115/72; PULSE 84; RESP 13; O2SAT 94
[2023-03-18] MEDS: Piperacillin Sodium/Tazobactam 3.375 GM in 0.9 % Sodium Chloride 50 ML IV (12:58)
--- NOTE | 2023-03-18 12:58 | PC.NURSE ---
delay in abx due to system downtime, blood cultures and lactic drawn, medicated perMAR.
[2023-03-18 13:43] LABS: Lactic Acid 1.1 mmol/L (0.5-2.0)
[2023-03-18 14:39] VITALS: BP 107/61; PULSE 77; RESP 14; O2SAT 94
[2023-03-18] MEDS: Furosemide 40 MG/4 ML VIAL IVPUSH (17:58)
--- NOTE | 2023-03-18 18:02 | PC.NURSE ---
pt medicated per OCT. resting quietly, vss, cont'd to report increased resp effort.
[2023-03-18 18:03] VITALS: BP 121/59; PULSE 84; RESP 18; O2SAT 94
--- NOTE | 2023-03-18 18:51 | PM.IMHP ---
History of Present Illness Date of Service: 03/18/23 Chief Complaint: SOB, leg swelling 77-year-old male with past medical history of heart failure with preserved ejection fraction, CKD LARISSA, paroxysmal AFib, diabetes, non-Hodgkin's lymphoma, hypercholesterolemia, peripheral vascular disease comes into the hospital with complaints of leg swelling and shortness of breath for the past 2 weeks. Patient reports leg swelling that has progressively worsened over the last 2 weeks, along with dyspnea on minimal exertion, orthopnea and PND. Denies any chest pain, has mild cough with some sputum production, no fever chills, no abdominal pain nausea or vomiting, diarrhea constipation, no urinary symptoms. No weakness numbness or tingling On arrival to the ED patient hemodynamically stable Labs are significant for WBC count of 7.3, sodium of 133, BNP of 290, Chest CT shows interval resolution of bilateral multilobar consolidation but has large bilateral pleural effusion which are increased from prior along with abdominal ascites Started patient on Lasix and will be admitted for further management Review of Systems Review of Systems: Yes all other systems are reviewed and are negative [facility] Medical History (HFpEF) heart failure with preserved ejection fraction Anxiety and depression CHF (congestive heart failure) CKD (chronic kidney disease) stage 3, GFR 30-59 ml/min Hypercholesterolemia Non Hodgkin's lymphoma Obesity (BMI 30-39.9) Obesity (BMI 30-39.9) LARISSA (obstructive sleep apnea) PAF (paroxysmal atrial fibrillation) Peptic ulcer disease Physical deconditioning Thrombocytopenia Type 2 diabetes mellitus with hyperglycemia Type 2 diabetes mellitus with unspecified complications Vitamin D deficiency Family History Father Lung cancer Mother Breast cancer Sister Breast cancer Brother Substance use disorder Sister No problems noted. Son No problems noted. Daughter No problems noted. Surgical History H/O colonoscopy H/O lymph node biopsy History of esophagogastroduodenoscopy (EGD) History of shoulder surgery Hx of cataract extraction Social History Household Members: Spouse and Family Housing: House Are you a primary ambulatory care to a significant other at home: No Do you presently have visiting nurse or other home services: No Alcohol intake: never Patient Tobacco Use Status: Never used Tobacco Smoked in Last 30 Days: No e-Cigarette/Vaping Use: Never Used Second Hand Smoke Exposure: No Use of substances other than those prescribed or required for medical reasons: No Advance Directives: Yes Advance Directives on File: Yes Advance Directives Date on File: 12/19/21 service: No Current occupational status: retired Cognitive needs: Yes (Walker, cane) Hearing needs: No Vision needs: Yes Meds Allergies Allergy/AdvReac Type Severity Reaction Status Date / Time gabapentin AdvReac Intermediate lethargy Verified 03/18/23 09:46 lisinopril AdvReac Intermediate Cough Verified 03/18/23 09:46 metformin AdvReac Intermediate lethargy Verified 03/18/23 09:46 Active Medications: Current Medications Acetaminophen (Acetaminophen 325 Mg Tablet) 650 mg PO Q6H PRN PRN Reason: Pain, Mild (Pain Scale 1-3) Docusate Sodium (Docusate Sodium 100 Mg Capsule) 100 mg PO DAILY PRN PRN Reason: Constipation Furosemide (Furosemide 40 Mg/4 Ml Vial) 40 mg IVPUSH DAILY [facility]; Protocol Magnesium Hydroxide (Milk Of Magnesia 30 Ml Oral.Susp) 30 ml PO DAILY PRN PRN Reason: Constipation Ondansetron HCl (Ondansetron Hcl 4 Mg/2 Ml Vial) 4 mg IVPUSH Q8H PRN PRN Reason: Nausea and Vomiting Pharmacy Consult (Consult Rx Perform Med Rec) 1 each MISCELLANE ONCE PRN PRN Reason: Consult order Sodium Chloride (0.9 % Sodium Chloride Flush 3 Ml Syringe) 3 ml IVFLUSH QSHIFT [facility] Home Medications Medication Instructions Recorded Confirmed Last Taken Type cholecalciferol (vitamin D3) 25 25 mcg PO DAILY 12/06/21 03/18/23 01/22/23 09:00 History mcg (1,000 unit) tablet (Vitamin D3) acetaminophen 325 mg tablet 650 mg PO Q6H PRN Pain 12/29/22 03/18/23 Unknown History levothyroxine 75 mcg tablet 75 mcg PO DAILY@0600 01/09/23 03/18/23 01/22/23 History atorvastatin 40 mg tablet 40 mg PO BEDTIME 01/22/23 03/18/23 01/22/23 09:00 History multivitamin 1 tab PO DAILY 03/10/23 03/18/23 Unknown History Physical Exam Vital Signs and Narrative: Vital Signs: Last Vital Signs Temp 98.3 F 03/18/23 09:43 Pulse 84 03/18/23 18:03 Resp 18 03/18/23 18:03 BP 121/59 L 03/18/23 18:03 Pulse Ox 94 03/18/23 18:03 O2 Del Method Room Air 03/18/23 18:03 BMI result Body Mass Index 32.3 Const: General: cooperative and no acute distress Orientation/consciousness: patient oriented x3 Eyes: General: appearance normal, both eyes and all related structures Pupils: Equal, round and reactive pupils present Resp: Other: Crackles bilaterally Effort & Inspection: normal respiratory effort Cardio: Rate: regular rate Rhythm: regular rhythm GI: Palpation (GI): Soft to palpation Auscultation: normal bowel sounds Skin: General skin exam: no rashes or lesions noted Neuro: General: patient oriented x3 Cranial nerves: Yes Equal, round and reactive pupils present Cognition (Neuro): normal cognition Extrem: Other: 2+ pitting edema up to the knees General: Yes normal to inspection Results Labs 03/18/23 10:00 03/18/23 10:00 Labs: Laboratory Results - last 24 hr 03/18/23 03/18/23 03/18/23 10:00 10:00 10:00 MCV 76.2 L MCH 24.8 L MCHC 32.5 RDW 15.9 Plt Count 175 MPV 9.5 Immature Gran % (Auto) 1.0 H Neut % (Auto) 75.1 H Lymph % (Auto) 14.2 L [place] % (Auto) 8.6 Eos % (Auto) 1.0 Baso % (Auto) 0.1 Lymph # (Auto) 1.0 L [place] # (Auto) 0.6 Eos # (Auto) 0.1 Baso # (Auto) 0.0 Abs Immat Gran (auto) 0.07 H Absolute Neuts (auto) 5.5 Absolute Nucleated RBC 0.000 Nucleated RBC % (auto) 0.0 Anion Gap 12 Estim Creat Clear Calc 57.0 Estimated GFR > 60 Random Glucose 125 H Lactic Acid Calcium 9.4 Total Bilirubin 1.1 H Direct Bilirubin 0.5 AST 26 ALT 23 Alkaline Phosphatase 108 B-Natriuretic Peptide 290 H Total Protein 6.6 Albumin 3.9 Lipase 55 03/18/23 12:44 MCV MCH MCHC RDW Plt Count MPV Immature Gran % (Auto) Neut % (Auto) Lymph % (Auto) [place] % (Auto) Eos % (Auto) Baso % (Auto) Lymph # (Auto) [place] # (Auto) Eos # (Auto) Baso # (Auto) Abs Immat Gran (auto) Absolute Neuts (auto) Absolute Nucleated RBC Nucleated RBC % (auto) Anion Gap Estim Creat Clear Calc Estimated GFR Random Glucose Lactic Acid 1.1 Calcium Total Bilirubin Direct Bilirubin AST ALT Alkaline Phosphatase B-Natriuretic Peptide Total Protein Albumin Lipase Imaging Radiologist's Impressions: Impressions Chest X-Ray 03/18/23 10:08 IMPRESSION: Left lower lobe pneumonia. Small left pleural effusion. Follow-up until resolution is advised. Chest CT 03/18/23 15:25 IMPRESSION: Interval resolution of bilateral multilobar consolidation. Large bilateral pleural effusions increased from prior. New abdominal ascites. Assessment and Plan (1) CHF exacerbation: Qualifiers: Heart failure type: diastolic Qualified Code(s): I50.33 - Acute on chronic diastolic (congestive) heart failure Status: Acute (2) Bilateral pleural effusion: Status: Acute (3) Hyponatremia: Status: Acute Plan 77-year-old male with past medical history of CHF with preserved ejection fraction comes into the hospital with complaints of shortness of breath found to have acute CHF exacerbation # acute CHF exacerbation - no exacerbating factor identified - has elevated BNP, pleural effusions on chest x-ray, lower extremity edema, orthopnea, PND, - takes 20 mg of Lasix at home - echo from December shows ejection fraction of 67% - at this time will start him on 40 mg Lasix daily, strict I&O, daily weight, low-sodium diet - monitor respiratory status # bilateral pleural effusion - IV Lasix - evidence of pneumonia - monitor respiratory status # hyponatremia - appears acute, mild - likely secondary to make hyponatremia in the setting of heart failure - Lasix given - monitor BMP # paroxysmal AFib - continue Eliquis, and metoprolol # hypothyroidism - continue Synthroid # diabetes - continue home insulin, hold oral antihyperglycemics - will add low-dose sliding scale insulin - diabetic diet DVT prophylaxis: Eliquis Given patient's need for IV Lasix in the setting of acute CHF exacerbation patient require minimum 2 nights inpatient hospital stay further management and monitoring Time Spent With Patient Time: Total time managing care of this patient today ____ minutes. Quality Stroke Does the patient have a stroke diagnosis?: No VTE Prior VTE?: No VTE Risk Level:: Medical - moderate - high VTE Device Contraindication: Treatment Not Indicated VTE Drug Contraindication: N/A - Med Ordered
--- NOTE | 2023-03-18 19:25 | PHA.MEDREC ---
Pharmacy Consult ? Medication Reconciliation Pharmacy has completed the medication reconciliation. Patient and patient's confirmed medications. Anusha Del Toro, DeenaD
[2023-03-18 22:20] VITALS: BP 114/57; PULSE 85; RESP 20; O2SAT 94
[2023-03-19] VITALS (9 sets, daily range): BP systolic 103–144; BP diastolic 48–80; PULSE 70–90; RESP 14–19; TEMP 36.2–36.7; O2SAT 94–98; BMI 30.6; BMI 31.1
[2023-03-19] MEDS: 0.9 % Sodium Chloride Flush 3 ML SYRINGE IVFLUSH ×3 (01:13→21:11)
--- NOTE | 2023-03-19 01:33 | MHC.EDTECH ---
patient vitals sign taken and belongings list done ,patient was given a can of diet guerita gloria pt awake in bed and is comfortable at this time .
--- NOTE | 2023-03-19 07:34 | MHC.EDTECH ---
pts weight taken after eating breakfast
[2023-03-19 07:35] LABS: MANUAL DIFF FLAG NO
[2023-03-19 07:37] LABS: Basophils Percent Auto 0.1 % (0-2); Eosinophils Absolute Auto 0.1 X10*3/uL (0.0-0.4); Eosinophils Percent Auto 1.2 % (0-4); Hemoglobin 11.1 g/dl (14.0-18.0); Imm Gran Abs Auto 0.05 X10*3/uL (0.00-0.03); Imm Gran Pct Auto 0.7 % (0.0-0.4); Lymphocytes Absolute Auto 1.2 X10*3/uL (1.2-4.9); Lymphocytes Percent Auto 15.5 % (20-40); Mean Corpuscular HGB Conc 32.6 g/dl (31.0-36.0); Mean Corpuscular Hemoglobin 25.1 pg (27.0-33.0); Mean Corpuscular Volume 76.7 fL (80.0-98.0); Mean Platelet Volume 9.8 fL (9.4-12.4); Monocytes Absolute Auto 0.8 X10*3/uL (0.1-1.2); Monocytes Percent Auto 11.2 % (2-11); Neutrophils Absolute Auto 5.4 x10*3/uL (2.0-8.3); Neutrophils Percent Auto 71.3 % (45-73); Platelet Count 157 X10*3/uL (160-400); Red Blood Count 4.43 X10*6/uL (4.60-5.80); White Blood Count 7.5 X10*3/uL (4.8-10.8)
[2023-03-19 08:09] LABS: Alanine Aminotransferase 21 U/L (0-40); Albumin Level 3.8 g/dL (3.5-5.0); Alkaline Phosphatase 96 U/L (39-117); Anion Gap 15 (12-20); Aspartate Amino Transferase 24 U/L (5-37); Blood Urea Nitrogen 14 mg/dL (9-16); Calcium 9.1 mg/dL (8.4-10.2); Carbon Dioxide 30 mmol/L (22-29); Chloride 93 mmol/L (96-108); Creatinine Clr Calc Pharmacy 52.1; Estimated Glomerular Filt Rate > 60; Glucose Random 104 mg/dL (60-115); Potassium 3.8 mmol/L (3.3-5.1); Sodium 134 mmol/L (135-145); Total Protein 6.2 g/dL (6.5-8.0)
[2023-03-19] MEDS: Milk of Magnesia 30 ML ORAL.SUSP PO (08:38)
[2023-03-19] MEDS: Furosemide 40 MG/4 ML VIAL IVPUSH (08:38)
[2023-03-19] MEDS: Acetaminophen 325 MG TABLET 650 MG PO (08:38)
[2023-03-19] MEDS: Docusate Sodium 100 MG CAPSULE PO (08:38)
--- NOTE | 2023-03-19 08:43 | PC.NURSE ---
pt is a/o x 4 no sob/linn noted lungs - shelbi upper lobes cta, shelbi lower lobes - diminished. heart sounds - irregular. abd soft, distended, non-tender. bx + x 4 quads. shelbi lower legs 3+ pitting edema. pt aware of plan of care.
--- NOTE | 2023-03-19 13:34 | P.PNIM_ITS ---
Subjective Subjective Date of Service: 03/19/23 Interval History: f/u on heart failure he is still sob but overall better, he is voiding alot Physical Exam Vital Signs: Vital Signs: Last Vital Signs Temp 97.7 F 03/19/23 12:19 Pulse 76 03/19/23 12:19 Resp 16 03/19/23 12:19 BP 133/80 03/19/23 12:19 Pulse Ox 94 03/19/23 12:19 O2 Del Method Room Air 03/19/23 12:19 BMI result Body Mass Index 30.6 Const: Other: General: AO X 3, no acute distress Resp: CTA bilateral CVS: S1,S2, iregular iregura, 3+ pitting edema GI: +BS, NT, no distention Skin: No rash Neuro: motor grossly intact Psych: appropriate affect Objective Data Active Medications Acetaminophen (Acetaminophen 325 Mg Tablet) 650 mg PO Q6H PRN PRN Reason: Pain, Mild (Pain Scale 1-3) Last Admin: 03/19/23 08:38 Dose: 650 mg Documented By: KAYLA Albuterol Sulfate (Albuterol Sulfate 90 Mcg 8 Gm Inhaler) 1 puff INHALE QID PRN PRN Reason: shortness of breath or wheezing Apixaban (Apixaban 5 Mg Tablet) 5 mg PO BID [facility] Atorvastatin Calcium (Atorvastatin Calcium 40 Mg Tablet) 40 mg PO DAILY [facility] Docusate Sodium (Docusate Sodium 100 Mg Capsule) 100 mg PO DAILY PRN PRN Reason: Constipation Last Admin: 03/19/23 08:38 Dose: 100 mg Documented By: KAYLA Escitalopram Oxalate (Escitalopram Oxalate 10 Mg Tablet) 10 mg PO DAILY [facility] Finasteride (Finasteride 5 Mg Tablet) 5 mg PO DAILY [facility] Furosemide (Furosemide 40 Mg/4 Ml Vial) 40 mg IVPUSH DAILY [facility]; Protocol Last Admin: 03/19/23 08:38 Dose: 40 mg Documented By: KAYLA Glipizide (Glipizide Xl 5 Mg Tab.Er.24) 5 mg PO DAILY [facility] Levothyroxine Sodium (Levothyroxine Sodium 75 Mcg Tablet) 75 mcg PO DAILY@1100 [facility] Magnesium Hydroxide (Milk Of Magnesia 30 Ml Oral.Susp) 30 ml PO DAILY PRN PRN Reason: Constipation Last Admin: 03/19/23 08:38 Dose: 30 ml Documented By: KAYLA Metoprolol Succinate (Metoprolol Succinate Er 100 Mg Tab.Er.24h) 100 mg PO DAILY [facility]; Protocol Multivitamins/Vitamin C (Multivitamin Tablet) 1 tab PO DAILY [facility] Nystatin (Nystatin Powder 15 Gm Bottle) 1 appl TOPICAL TID [facility]; Protocol Ondansetron HCl (Ondansetron Hcl 4 Mg/2 Ml Vial) 4 mg IVPUSH Q8H PRN PRN Reason: Nausea and Vomiting Pharmacy Consult (Consult Rx Perform Med Rec) 1 each MISCELLANE ONCE PRN PRN Reason: Consult order Sodium Chloride (0.9 % Sodium Chloride Flush 3 Ml Syringe) 3 ml IVFLUSH QSHIFT [facility] Last Admin: 03/19/23 08:39 Dose: 3 ml Documented By: KAYLA Tamsulosin HCl (Tamsulosin Hcl 0.4 Mg Capsule) 0.4 mg PO BEDTIME [facility] Vitamin D (Cholecalciferol (Vitamin D3) 25 Mcg Tablet) 25 mcg PO DAILY [facility] Labs 03/19/23 07:30 03/19/23 07:30 Labs: Laboratory Results - last 24 hr 03/18/23 03/19/23 03/19/23 12:44 07:30 07:30 MCV 76.7 L MCH 25.1 L MCHC 32.6 RDW 16.0 Plt Count 157 L MPV 9.8 Immature Gran % (Auto) 0.7 H Neut % (Auto) 71.3 Lymph % (Auto) 15.5 L Hyde % (Auto) 11.2 H Eos % (Auto) 1.2 Baso % (Auto) 0.1 Lymph # (Auto) 1.2 Hyde # (Auto) 0.8 Eos # (Auto) 0.1 Baso # (Auto) 0.0 Abs Immat Gran (auto) 0.05 H Absolute Neuts (auto) 5.4 Absolute Nucleated RBC 0.000 Nucleated RBC % (auto) 0.0 Anion Gap 15 Estim Creat Clear Calc 52.1 Estimated GFR > 60 Random Glucose 104 Lactic Acid 1.1 Calcium 9.1 Total Bilirubin 1.0 AST 24 ALT 21 Alkaline Phosphatase 96 Total Protein 6.2 L Albumin 3.8 Assessment and Plan (1) Hyponatremia: Status: Acute (2) CHF exacerbation: Status: Acute Plan 77-year-old male with past medical history of CHF with preserved ejection fraction comes into the hospital with complaints of shortness of breath found to have acute CHF exacerbation # acute HFpEF exacerbation, still markedly fluid overloaded, but overall better. -Continue IV Lasix, monitor I/O, weight, and BMP, low salt diet if not improving dardiology consult # bilateral pleural effusion likely due to heart failure - IV Lasix # hyponatremia--d/t chf, mild, improved ? PNA CXR--clinically no pna, no fever, nl WBC , no productio ncough and not seen on CT # paroxysmal AFib - continue Eliquis, and metoprolol # hypothyroidism - continue Synthroid # diabetes - continue home insulin, hold oral antihyperglycemics, SSI, diabetic diet DVT prophylaxis:? Eliquis Need for inpat: IV diuretics for acute heart failure, monioring of electrolytes Time Spent With Patient Time: Total time managing care of this patient today ____ minutes. Quality Stroke Does the patient have a stroke diagnosis?: No VTE Prior VTE?: No VTE Risk Level:: Medical - moderate - high VTE Device Contraindication: Treatment Not Indicated VTE Drug Contraindication: N/A - Med Ordered
--- NOTE | 2023-03-19 15:20 | PC.NURSE ---
RN TO RN REPORT GIVEN SLICK. PT AWARE OF PLAN OF CARE FOR TRANSFER TO ROOM 467
[2023-03-19 16:09] LABS: Glucose, Whole Blood 187 mg/dL (60-115)
--- NOTE | 2023-03-19 16:55 | PC.NURSE ---
Pt arrived to unit from ED on stretcher able to stand to get from stretcher to bed steady. Neurologically intact. HOPE to command 5/5 sensation intact, +pp bilat 2+ edema to feet/ankles. c/o shortness of breath at times, LSC dim bases satting mid to high 90's on room air. Afib on tele. BS+X4 abdomen round semi firm non-tender per pt last BM 03/19. Denies pain/discomfort. Pt educated on room, staff and call temple. Bed in lowest locked position alarm for safety. Will continue to monitor and report changes
[2023-03-19 20:25] LABS: Glucose, Whole Blood 136 mg/dL (60-115)
[2023-03-19] MEDS: Tamsulosin HCL 0.4 MG CAPSULE PO (21:05)
[2023-03-19] MEDS: Apixaban 5 MG TABLET PO (21:05)
[2023-03-20] VITALS: BP 115/59; PULSE 81; RESP 18; TEMP 36.7; O2SAT 93
[2023-03-20 02:20] LABS: Anion Gap 14 (12-20); Blood Urea Nitrogen 17 mg/dL (9-16); Calcium 8.7 mg/dL (8.4-10.2); Carbon Dioxide 29 mmol/L (22-29); Chloride 94 mmol/L (96-108); Creatinine Clr Calc Pharmacy 60.6; Estimated Glomerular Filt Rate > 60; Glucose Random 113 mg/dL (60-115); Magnesium 2.1 mg/dL (1.6-2.6); Potassium 3.6 mmol/L (3.3-5.1); Sodium 133 mmol/L (135-145)
[2023-03-20 03:19] VITALS: BP 112/61; PULSE 85; RESP 20; TEMP 37.6; O2SAT 92
[2023-03-20 07:37] VITALS: BP 120/72; PULSE 76; RESP 20; TEMP 36.8; O2SAT 96
[2023-03-20] MEDS: Multivitamin TABLET 1 TAB PO (07:57)
[2023-03-20] MEDS: Furosemide 40 MG/4 ML VIAL IVPUSH (07:57)
[2023-03-20] MEDS: Finasteride 5 MG TABLET PO (07:57)
[2023-03-20] MEDS: Escitalopram Oxalate 10 MG TABLET PO (07:58)
[2023-03-20] MEDS: Cholecalciferol (Vitamin D3) 25 MCG TABLET PO (07:58)
[2023-03-20] MEDS: glipiZIDE XL 5 MG TAB.ER.24 PO (07:58)
[2023-03-20] MEDS: Atorvastatin Calcium 40 MG TABLET PO (07:58)
[2023-03-20] MEDS: Apixaban 5 MG TABLET PO ×2 (07:58→20:10)
[2023-03-20] MEDS: Metoprolol Succinate ER 100 MG TAB.ER.24H PO (07:58)
[2023-03-20] MEDS: 0.9 % Sodium Chloride Flush 3 ML SYRINGE IVFLUSH ×3 (07:58→20:11)
--- NOTE | 2023-03-20 08:39 | P.PNIM_ITS ---
Subjective Subjective Date of Service: 03/20/23 Interval History: f/u on heart failure he is still sob but overall better, he is voiding alot, swelling alot better in the feet Physical Exam Vital Signs: Vital Signs: Last Vital Signs Temp 98.3 F 03/20/23 07:37 Pulse 76 03/20/23 07:37 Resp 20 03/20/23 07:37 BP 120/72 03/20/23 07:37 Pulse Ox 96 03/20/23 07:37 O2 Del Method Room Air 03/20/23 07:37 BMI result Body Mass Index 31.1 Const: Other: General: AO X 3, no acute distress Resp: CTA bilateral CVS: S1,S2, iregular iregura, 3+ pitting edema GI: +BS, NT, no distention Skin: No rash Neuro: motor grossly intact Psych: appropriate affect Objective Data Active Medications Acetaminophen (Acetaminophen 325 Mg Tablet) 650 mg PO Q6H PRN PRN Reason: Pain, Mild (Pain Scale 1-3) Last Admin: 03/19/23 08:38 Dose: 650 mg Documented By: KAYLA Albuterol Sulfate (Albuterol Sulfate 90 Mcg 8 Gm Inhaler) 1 puff INHALE QID PRN PRN Reason: shortness of breath or wheezing Apixaban (Apixaban 5 Mg Tablet) 5 mg PO BID [facility] Last Admin: 03/20/23 07:58 Dose: 5 mg Documented By: KAY Atorvastatin Calcium (Atorvastatin Calcium 40 Mg Tablet) 40 mg PO DAILY [facility] Last Admin: 03/20/23 07:58 Dose: 40 mg Documented By: KAY Docusate Sodium (Docusate Sodium 100 Mg Capsule) 100 mg PO DAILY PRN PRN Reason: Constipation Last Admin: 03/19/23 08:38 Dose: 100 mg Documented By: KAYLA Escitalopram Oxalate (Escitalopram Oxalate 10 Mg Tablet) 10 mg PO DAILY [facility] Last Admin: 03/20/23 07:58 Dose: 10 mg Documented By: KAY Finasteride (Finasteride 5 Mg Tablet) 5 mg PO DAILY [facility] Last Admin: 03/20/23 07:57 Dose: 5 mg Documented By: KAY Furosemide (Furosemide 40 Mg/4 Ml Vial) 40 mg IVPUSH DAILY [facility]; Protocol Last Admin: 03/20/23 07:57 Dose: 40 mg Documented By: KAY Glipizide (Glipizide Xl 5 Mg Tab.Er.24) 5 mg PO DAILY [facility] Last Admin: 03/20/23 07:58 Dose: 5 mg Documented By: KAY Levothyroxine Sodium (Levothyroxine Sodium 75 Mcg Tablet) 75 mcg PO DAILY@1100 [facility] Magnesium Hydroxide (Milk Of Magnesia 30 Ml Oral.Susp) 30 ml PO DAILY PRN PRN Reason: Constipation Last Admin: 03/19/23 08:38 Dose: 30 ml Documented By: KAYLA Metoprolol Succinate (Metoprolol Succinate Er 100 Mg Tab.Er.24h) 100 mg PO DAILY [facility]; Protocol Last Admin: 03/20/23 07:58 Dose: 100 mg Documented By: KAY Multivitamins/Vitamin C (Multivitamin Tablet) 1 tab PO DAILY [facility] Last Admin: 03/20/23 07:57 Dose: 1 tab Documented By: KAY Nystatin (Nystatin Powder 15 Gm Bottle) 1 appl TOPICAL TID [facility]; Protocol Last Admin: 03/20/23 07:58 Dose: Not Given Documented By: KAY Non-Admin Reason: Patient Refused Ondansetron HCl (Ondansetron Hcl 4 Mg/2 Ml Vial) 4 mg IVPUSH Q8H PRN PRN Reason: Nausea and Vomiting Pharmacy Consult (Consult Rx Perform Med Rec) 1 each MISCELLANE ONCE PRN PRN Reason: Consult order Sodium Chloride (0.9 % Sodium Chloride Flush 3 Ml Syringe) 3 ml IVFLUSH QSHIFT [facility] Last Admin: 03/20/23 07:58 Dose: 3 ml Documented By: KAY Tamsulosin HCl (Tamsulosin Hcl 0.4 Mg Capsule) 0.4 mg PO BEDTIME [facility] Last Admin: 03/19/23 21:05 Dose: 0.4 mg Documented By: ASMITA Vitamin D (Cholecalciferol (Vitamin D3) 25 Mcg Tablet) 25 mcg PO DAILY [facility] Last Admin: 03/20/23 07:58 Dose: 25 mcg Documented By: KAY Labs 03/19/23 07:30 03/20/23 01:37 Labs: Laboratory Results - last 24 hr 03/19/23 03/19/23 03/20/23 15:59 20:19 01:37 Anion Gap 14 Estim Creat Clear Calc 60.6 Estimated GFR > 60 POC Glucose 187 H 136 H Random Glucose 113 Calcium 8.7 Magnesium 2.1 Microbiology Microbiology Results: Microbiology 03/18/23 12:44 Blood Culture - Preliminary Blood - Venous No growth after 24 hours. 03/18/23 12:44 Blood Culture - Preliminary Blood - Venous No growth after 24 hours. Assessment and Plan (1) Hyponatremia: Status: Acute (2) CHF exacerbation: Status: Acute Plan 77-year-old male with past medical history of CHF with preserved ejection fraction comes into the hospital with complaints of shortness of breath found to have acute CHF exacerbation # acute HFpEF exacerbation, still markedly fluid overloaded but getting better -Continue IV Lasix for 1 more day, monitor I/O, weight, and BMP, low salt diet if, if better tomorrow, change to oral Lasix and d/c # bilateral pleural effusion likely due to heart failure - IV Lasix and reasses with cXR at later time # hypOnatremia--d/t chf, mild, improved ? PNA CXR--clinically no pna, no fever, nl WBC , no productio ncough and not seen on CT therefore no Abx # paroxysmal AFib - continue Eliquis, and metoprolol # hypothyroidism - continue Synthroid # diabetes - continue home insulin, hold oral antihyperglycemics, SSI, diabetic diet DVT prophylaxis:? Eliquis Need for inpat: IV diuretics for acute heart failure, monioring of electrolytes out of bed, ambulate Time Spent With Patient Time: Total time managing care of this patient today ____ minutes. Quality Stroke Does the patient have a stroke diagnosis?: No VTE Prior VTE?: No VTE Risk Level:: Medical - moderate - high VTE Device Contraindication: Treatment Not Indicated VTE Drug Contraindication: N/A - Med Ordered
--- NOTE | 2023-03-20 10:08 | MHC.CM.PN ---
Lives w/, two children and grandchild. Previous services through [facility], but has since been D/C'd from their services. 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 to transport home. reports he will refuse services upon D/C, but she wants him to have the help; reports he would not let [facility]NA in the last time, but she stepped in and made him allow them to care for him in the home. She was happy with [facility], but is amenable to any VNA should it be needed. She did indicate that his wishes regarding services VS no services also need to be considered, if he truly is against the idea and he could go home safely, then he should go home with no services. CM to follow.
[2023-03-20] MEDS: Levothyroxine Sodium 75 MCG TABLET PO (10:22)
[2023-03-20 11:23] VITALS: BP 119/62; PULSE 86; RESP 20; TEMP 36.4; O2SAT 96
[2023-03-20 14:57] VITALS: BP 117/69; PULSE 104; RESP 20; TEMP 36.7; O2SAT 96
[2023-03-20 20:00] VITALS: BP 115/73; PULSE 74; RESP 16; TEMP 36.7; O2SAT 95
[2023-03-20] MEDS: Tamsulosin HCL 0.4 MG CAPSULE PO (20:10)
[2023-03-20 20:40] LABS: Glucose, Whole Blood 136 mg/dL (60-115)
[2023-03-21] VITALS: BP 118/57; PULSE 78; RESP 20; TEMP 36.9; O2SAT 93
[2023-03-21 03:35] VITALS: BP 132/72; PULSE 77; RESP 20; TEMP 36.3; O2SAT 94
[2023-03-21 08:00] VITALS: BP 113/64; PULSE 81; RESP 20; TEMP 36.2; O2SAT 96
[2023-03-21] MEDS: Metoprolol Succinate ER 100 MG TAB.ER.24H PO (09:09)
[2023-03-21] MEDS: Atorvastatin Calcium 40 MG TABLET PO (09:10)
[2023-03-21] MEDS: Cholecalciferol (Vitamin D3) 25 MCG TABLET PO (09:10)
[2023-03-21] MEDS: Furosemide 40 MG/4 ML VIAL IVPUSH (09:10)
[2023-03-21] MEDS: Escitalopram Oxalate 10 MG TABLET PO (09:10)
[2023-03-21] MEDS: Multivitamin TABLET 1 TAB PO (09:10)
[2023-03-21] MEDS: glipiZIDE XL 5 MG TAB.ER.24 PO (09:10)
[2023-03-21] MEDS: Apixaban 5 MG TABLET PO (09:10)
[2023-03-21] MEDS: Finasteride 5 MG TABLET PO (09:11)
[2023-03-21] MEDS: 0.9 % Sodium Chloride Flush 3 ML SYRINGE IVFLUSH ×2 (09:11→16:50)
[2023-03-21] MEDS: Levothyroxine Sodium 75 MCG TABLET PO (09:24)
[2023-03-21 11:20] VITALS: BP 153/83; PULSE 84; RESP 20; TEMP 36.6; O2SAT 95
[2023-03-21 14:59] VITALS: BP 118/67; PULSE 80; RESP 20; TEMP 36.7; O2SAT 94
--- NOTE | 2023-03-21 17:03 | P.DS_ITS ---
DS: Providers Provider Date of Service: 03/21/23 Date of admission: 03/18/23 18:45 Primary care physician: Carmen Peters MD DS: Diagnosis Discharge Diagnosis (1) Hyponatremia: Status: Acute (2) CHF exacerbation: Status: Acute DS: Summary Status at Discharge Cognitive/behavioral status at discharge: From admission H&P: 77-year-old male with past medical history of heart failure with preserved eje ction fraction, CKD LARISSA, paroxysmal AFib, diabetes, non-Hodgkin's lymphoma, hypercholesterolemia, peripheral vascular disease comes into the hospital with complaints of leg swelling and shortness of breath for the past 2 weeks.? Patient reports leg swelling that has progressively worsened over the last 2 weeks, along with dyspnea on minimal exertion, orthopnea and PND.? Denies any chest pain, has mild cough with some sputum production, no fever chills, no abdominal pain nausea or vomiting, diarrhea constipation, no urinary symptoms.? No weakness numbness or tingling On arrival to the ED patient hemodynamically stable Labs are significant for WBC count of 7.3, sodium of 133, BNP of 290, Chest CT shows interval resolution of bilateral multilobar consolidation but has large bilateral pleural effusion which are increased from prior along with abdominal ascites Started patient on Lasix and will be admitted for further management Hospital course: Pt was admitted in the hospital and started on IV Lasix 40 mg daily. Patient showed clinical improvement in both shortness of breath and lower leg edema. Today pt is without shortness of breath with ambulation to and from the bathroom, and also has complete resolution of lower leg pitting edema. Patient expresses his wishes today to be discharged home. Patient's CHF exacerbation likely secondary to medication noncompliance. Patient states that a few months ago he was prescribed 1 month of Lasix 20 mg p.o. by his PCP. Patient completed the medication but was not immediately given a refill. Patient says that he went 2-3 weeks without any furosemide and began noticing increasing lower leg edema. Patient was then put back on p.o. Lasix, but for the next month or so swelling in his legs increased as well as did his shortness of breath with exertion. Patient will be discharged with a new prescription for furosemide 40 mg daily. Time Spent with Patient Time attestation: Total time managing care of this patient today ____ minutes. Discharge coordination time: Greater than 30 minutes Quality: Safe Use of Opioids Does Pt have an Active Cancer Diagnosis on the Problem List?: No Quality: Stroke Does the patient have a stroke diagnosis?: No Physical Exam Vital Signs: Vital Signs: Last Vital Signs Temp 98.0 F 03/21/23 14:59 Pulse 80 03/21/23 14:59 Resp 20 03/21/23 14:59 BP 118/67 03/21/23 14:59 Pulse Ox 94 03/21/23 14:59 O2 Del Method Room Air 03/21/23 14:59 BMI result Body Mass Index 31.1 General: AOx3, no acute distress Resp: CTA bilaterally CVS: S1, S2, RRR GI: +BS, NT, no distention Skin: No rash Neuro: Cranial nerves II-XII grossly intact bilaterally. Motor grossly intact bilaterally Extremities: No edema Psych: Appropriate affect DS: Data Data Completed and Pending Completed studies during hospitalization [Text1]: Procedures Assistance with Respiratory Ventilation, Less than 24 Consecutive Hours, Continuous Positive Airway Pressure (12/05/21) Introduction of Remdesivir Anti-infective into Peripheral Vein, Percutaneous Approach, [employer] 5 (12/05/21) Labs on day of discharge: Laboratory Results - last 24 hr 03/20/23 20:36 POC Glucose 136 H Preliminary micro results at discharge 03/18/23 12:44 Blood Culture - Preliminary Blood - Venous No growth after 48 hours. 03/18/23 12:44 Blood Culture - Preliminary Blood - Venous No growth after 48 hours. Discharge Plan Discharge Anticipated Discharge Date/Time: 03/21/23 16:46 Patient Disposition: Home, Self-Care Discharge Diagnosis: Acute HFpEF exacerbation Referrals: Carmen Peters MD [Primary Care Provider] - 1 Week Discharge Medications: New furosemide 40 mg tablet 40 mg PO DAILY Qty: 30 0RF Continued metoprolol succinate 100 mg tablet extended release 24 hr 100 mg PO DAILY 90 Days Qty: 90 2RF Eliquis 5 mg tablet 5 mg PO BID Qty: 180 3RF escitalopram oxalate 10 mg tablet 10 mg PO DAILY 90 Days Qty: 90 2RF cholecalciferol (vitamin D3) [Vitamin D3] 25 mcg (1,000 unit) Tablet 25 mcg PO DAILY atorvastatin 40 mg tablet 40 mg PO DAILY nystatin 100,000 unit/gram Powder 1 appl topical TID 7 Days Qty: 60 1RF Protocol: Apply to: Apply to: Affected area levothyroxine 75 mcg tablet 75 mcg PO DAILY@1100 glipizide 5 mg tablet extended release 24hr 5 mg PO DAILY Qty: 90 2RF (DME) Ultra-Light Rollator Misc See Rx Instructions .Route Qty: 1 0RF Rx Instructions: As directed multivitamin Tablet 1 tab PO DAILY albuterol sulfate [Ventolin HFA] 90 mcg/actuation HFA aerosol inhaler 1 inh inhalation QID PRN (Reason: shortness of breath or wheezing) Qty: 8.5 1RF tamsulosin 0.4 mg capsule 0.4 mg PO BEDTIME 30 Days Qty: 30 0RF finasteride 5 mg tablet 5 mg PO DAILY 90 Days Qty: 90 1RF Discontinued furosemide [Lasix] 20 mg tablet 20 mg PO DAILY Qty: 30 2RF Discharge Orders: Discharge Order (Routine); Ordered 03/21/23 Ordered By: Luciana Schaefer Activity on Discharge: As tolerated Stand Alone Forms: Patient Portal Discharge page Care Plan Goals: Resume all home meds except for furosemide 20 mg daily Start furosemide 40 mg daily Complete resolution CHF exacerbation Resolution of lower leg edema Health Concerns: Monitor for increasing shortness of breath Monitor for increasing lower leg edema Plan of Treatment: Start furosemide 40 mg tablet daily Follow-up with PCP in 1 week to monitor for SOB and edema, and labs to monitor electrolytes Call PCP immediately if notice any increase in shortness of breath or lower leg edema Assessment: See discharge summary
== END 2023-03-21 17:55 | disposition home or self-care (01) | DRG 291 ==
LOC: HO.ED 16:22 → HO.EDOVER 03-19 13:33 → HO.IMC 03-19 13:56
PROVIDERS: Internal Medicine; Student in an Organized Health Care Education/Training Program; Admitting Provider Internal Medicine; Emergency Provider Emergency Medicine Emergency Medical Services; PCP Internal Medicine; Visit Provider Student in an Organized Health Care Education/Training Program
DX: I13.0 Hypertensive heart and chronic kidney disease with heart failure and stage 1 through stage 4 chronic kidney disease, or unspecified chronic kidney disease (principal); I50.33 Acute on chronic diastolic (congestive) heart failure; E87.1 Hypo-osmolality and hyponatremia; E78.00 Pure hypercholesterolemia, unspecified; E03.9 Hypothyroidism, unspecified; I48.0 Paroxysmal atrial fibrillation; N18.30 Chronic kidney disease, stage 3 unspecified; G47.33 Obstructive sleep apnea (adult) (pediatric); E11.22 Type 2 diabetes mellitus with diabetic chronic kidney disease; Z79.01 Long term (current) use of anticoagulants; Z79.890 Hormone replacement therapy; Z79.899 Other long term (current) drug therapy
CPT/HCPCS: 36415; 71046; 71250; 80048; 80053; 80076; 82947; 83605; 83690; 83735; 83880; 84484; 85025; 87040; 93005; 99212; 99285; J1940; J2543

== ENCOUNTER → 2023-03-18 09:56 | Outpatient (BNV) | payer MEDICARE, SELFPAY | PROVIDERS: Emergency Provider Emergency Medicine Emergency Medical Services; PCP Internal Medicine; Visit Provider Internal Medicine | DX: I50.33 Acute on chronic diastolic (congestive) heart failure (principal); E87.1 Hypo-osmolality and hyponatremia | CPT/HCPCS: 99223; 99232; 99233 ==

== ENCOUNTER 2023-04-06 11:44 | Outpatient (AMB) | payer MEDICARE, SELFPAY ==
--- NOTE | 2023-04-06 12:06 | MHC.PC.OV ---
Vital Signs 04/06/23 12:07 Height 5 ft 5 in Weight 166 lb BMI 27.6 BP 112/80 Blood Pressure Location Lt brachial Position Sitting Pulse 70 Pulse Source Pulse Oximeter Pulse Oximetry (%) 97 Oxygen Delivery Method Room Air Intake [place] [facility] [place]Congest[place] Intake Note: Patient is here for hospital discharge follow up. [place] [facility] [place] 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 Accompanied by: Spouse Allergies gabapentin Adverse Reaction (Intermediate, Verified 04/06/23 12:29) lethargy lisinopril Adverse Reaction (Intermediate, Verified 04/06/23 12:29) Cough metformin Adverse Reaction (Intermediate, Verified 04/06/23 12:29) lethargy Medication List - Last Reconciled 04/06/23 by IVONE Rojas albuterol sulfate 90 mcg/actuation (Ventolin HFA) 1 inh inhalation QID PRN apixaban (Eliquis) 5 mg PO BID atorvastatin 40 mg PO DAILY cholecalciferol (vitamin D3) (Vitamin D3) 25 mcg PO DAILY escitalopram oxalate 10 mg PO DAILY 90 days finasteride 5 mg PO DAILY 90 days furosemide 40 mg PO DAILY glipizide ER 5 mg PO DAILY levothyroxine 75 mcg PO DAILY@1100 metoprolol succinate ER 100 mg PO DAILY 90 days multivitamin 1 tab PO DAILY nystatin 1 appl See Protocol topical TID 7 days tamsulosin 0.4 mg PO BEDTIME 30 days walker (Ultra-Light Rollator misc) As directed Tobacco use date assessed: 04/06/23 Fall risk assessment: No Falls in past year Last assessed Fall Risk: 04/06/23 Dental Screening Dental Screen Date: 04/06/23 Did you have a dental visit in the last 12 months?: Yes Did you have a dental problem in the last 6 months where you did not have access to dental care?: No Was dental information given to patient?: Patient has dentist HPI HPI Comments History of Present Illness Details 77-year-old male past medical history significant for hypercholesteremia, CHF, LARISSA, hypothyroid, PVD, type 2 diabetes mellitus, paroxysmal atrial fibrillation, non-Hodgkin's lymphoma and anemia. Patient of Dr. Peters presents today for hospital discharge follow up. Patient reported leg swelling that has progressively worsened over 2 weeks with shortness of breath on minimal exertion and orthopnea. Patient went to follow-up with Cardiology and he was sent to the emergency room.Labs are significant for WBC count of 7.3, sodium of 133, BNP of 290,Chest CT shows interval resolution of bilateral multilobar consolidation but has large bilateral pleural effusion which are increased from prior along with abdominal ascites. Patient was started on IV Lasix 40 mg daily and admitted for diuresis. Patient had complete resolution of lower extremity edema and shortness of breath. Patient was discharged home on 40 mg p.o. Lasix daily. Patient reports overall feeling well today denies any shortness of breath, chest pain, palpitations and lower extremity edema. Patient continues on 40 mg p.o. Lasix. 90 day supply was sent to [facility] as requested by patient. Patient reports will be calling Cardiology to schedule follow-up. [facility] Medical History (HFpEF) heart failure with preserved ejection fraction Anxiety and depression CHF (congestive heart failure) CKD (chronic kidney disease) stage 3, GFR 30-59 ml/min Hypercholesterolemia Non Hodgkin's lymphoma Obesity (BMI 30-39.9) Obesity (BMI 30-39.9) LARISSA (obstructive sleep apnea) PAF (paroxysmal atrial fibrillation) Peptic ulcer disease Physical deconditioning Thrombocytopenia Type 2 diabetes mellitus with hyperglycemia Type 2 diabetes mellitus with unspecified complications Vitamin D deficiency Surgical History H/O colonoscopy H/O lymph node biopsy History of esophagogastroduodenoscopy (EGD) History of shoulder surgery Hx of cataract extraction Family History Father Lung cancer Mother Breast cancer Sister Breast cancer Brother Substance use disorder Sister No problems noted. Son No problems noted. Daughter No problems noted. Social History Household Members: Spouse and Children Housing: House Are you a primary caretaker to a significant other at home: No Do you presently have visiting nurse or other home services: No Alcohol intake: never Patient Tobacco Use Status: Never used Tobacco e-Cigarette/Vaping Use: Never Used Second Hand Smoke Exposure: No Advance Directives Date on File: 12/19/21 service: No Current occupational status: retired Cognitive needs: Yes (Walker, cane) Hearing needs: No Vision needs: Yes Questionnaire Thrive Questionnaire Date Thrive assessed: 03/20/23 AIADN-7 AMB Questionnaire AIDAN-7 Date AIDAN - 7 assessed: 10/21/22 Source: Developed by Drs. Simon Zhou, Latisha Huang, Ayo Rodríguez and colleagues, with an educational skye from [employer]. Review of Systems Const Denies chills, Denies fatigue, Denies fever(s) and Denies poor appetite Eyes Denies no additional complaints ENT Reports Normal hearing present Card Denies chest pain, Denies syncope, Denies rapid heart rate and Denies dyspnea Resp Denies cough and Denies dyspnea GI Denies change in stool character, Denies constipation, Denies diarrhea, Denies nausea and Denies vomiting Denies dysuria, Denies urinary frequency and Denies urinary urgency Neuro Reports Normal hearing present, Denies confusion and Denies syncope Psych Denies confusion Endo Denies fatigue Physical exam (Primary Care) Vital Signs: Last Vital Signs Pulse 70 04/06/23 12:07 BP 112/80 04/06/23 12:07 Pulse Ox 97 04/06/23 12:07 Oxygen Delivery Method Room Air 04/06/23 12:07 BMI result Body Mass Index 27.6 Tobacco/Smoking Status: Tobacco use Status Tobacco use date assessed 04/06/23 04/06/23 12:18 Patient Tobacco Use Status Never used Tobacco 04/06/23 12:18 e-Cigarette/Vaping Use Never Used 04/06/23 12:18 Thrive Assessment: Date of Thrive Assessment Date Thrive assessed 03/20/23 04/06/23 12:18 Const General: No confusion Orientation/consciousness: No confusion HENMT Head: Yes normocephalic and Yes atraumatic Eyes Conjunctivae: conjunctivae normal Chest Chest palpation & inspection: normal inspection of the chest Resp Effort & Inspection: normal respiratory effort Auscultation: clear to auscultation bilaterally, no crackles, no rhonchi and no wheezes Cardio Rate: regular rate Rhythm: regular rhythm Heart sounds: S1 normal heart sound present and S2 normal heart sound present GI Inspection: Yes normal to inspection Neuro General: No confusion Cranial nerves: Yes Normal hearing present Extrem General: No edema Assessment and Plan Assessment & Plan (1) CHF (congestive heart failure): Code(s): I50.9 - Heart failure, unspecified Plan: Continue on Lasix 40 mg daily. Patient advised if he develops any shortness of breath, lower extremity edema male and weight gain to follow-up. (2) Anemia: Code(s): D64.9 - Anemia, unspecified Plan: Repeat CBC ordered. (3) PAF (paroxysmal atrial fibrillation): Comment: Cardioversion 12/04/2021 Code(s): I48.0 - Paroxysmal atrial fibrillation Plan: Continue on Eliquis 5 mg b.i.d. for anticoagulation and metoprolol 100 mg daily for rate control. (4) Essential hypertension: Code(s): I10 - Essential (primary) hypertension Plan: Continue on metoprolol. Follow low-salt diet exercise Blood pressure goal less than 140/90. (5) Hypercholesterolemia: Code(s): E78.00 - Pure hypercholesterolemia, unspecified Plan: Continue on atorvastatin 40 mg daily. Follow low-cholesterol diet. (6) Type 2 diabetes mellitus with hyperglycemia: Comment: dx ~ 2014-does not check glucose at home Code(s): E11.65 - Type 2 diabetes mellitus with hyperglycemia Qualifiers: Diabetes mellitus jail insulin use: without ferry terminal agent use Qualified Code(s): E11.65 - Type 2 diabetes mellitus with hyperglycemia Plan: Continue on glipizide 5 mg daily. Follow low-carbohydrate diet. (7) Hospital discharge follow-up: Code(s): Z09 - Encounter for follow-up examination after completed treatment for conditions other than malignant neoplasm Plan Keep scheduled follow-up with PCP or follow-up sooner if needed. Orders: Orders Comprehensive Met. Panel 04/06/23 I50.9 - Heart failure, unspecified Ferritin 04/06/23 D64.9 - Anemia, unspecified Complete Blood Count Auto Diff 04/06/23 Z13.0 - Encounter for screening for diseases of the blood and blood-forming organs and certain disorders involving the immune mechanism IRON PROFILE 04/06/23 I50.9 - Heart failure, unspecified Prothrombin Time INR 04/06/23 D64.9 - Anemia, unspecified Medications: Refilled furosemide 40 mg PO DAILY 90 tabs 1RF I50.9 - Heart failure, unspecified Discontinued levothyroxine 75 mcg PO DAILY 90 days 90 tabs 2RF E03.9 - Hypothyroidism, unspecified atorvastatin 40 mg PO DAILY 90 tabs 3RF Coding Level of Care Code Est Pt Level 4 (04765) Diagnoses CHF (congestive heart failure) I50.9 Anemia D64.9 PAF (paroxysmal atrial fibrillation) I48.0 Essential hypertension I10 Hypercholesterolemia E78.00 Type 2 diabetes mellitus with hyperglycemia E11.65 Diabetes mellitus ferry terminal agent insulin use: without jail use Hospital discharge follow-up Z09
[2023-04-06 12:07] VITALS: BP 112/80; PULSE 70; O2SAT 97; BMI 27.6
== END 2023-04-06 12:39 | disposition home or self-care (01) ==
PROVIDERS: PCP Internal Medicine; Visit Provider Nurse Practitioner Family
DX: I11.0 Hypertensive heart disease with heart failure (principal); I50.9 Heart failure, unspecified; I48.0 Paroxysmal atrial fibrillation; E11.65 Type 2 diabetes mellitus with hyperglycemia; Z09 Encounter for follow-up examination after completed treatment for conditions other than malignant neoplasm; D64.9 Anemia, unspecified; E78.00 Pure hypercholesterolemia, unspecified
CPT/HCPCS: 99214

== ENCOUNTER 2023-04-08 14:52 | Outpatient (AMB) | payer MEDICARE, SELFPAY ==
[2023-04-08 14:54] VITALS: BP 136/76; PULSE 60; O2SAT 98; BMI 27.7
--- NOTE | 2023-04-08 14:54 | A.OFFPC_ITS ---
Vital Signs 04/08/23 14:54 Height 5 ft 5 in Weight 166 lb 8 oz BMI 27.7 BP 136/76 Blood Pressure Location Lt brachial Position Sitting Pulse 60 Pulse Source Pulse Oximeter Pulse Oximetry (%) 98 Oxygen Delivery Method Room Air Intake Visit Reasons: Pre-Op eye surgery 04/26/23 Allergies amlodipine Adverse Reaction (Intermediate, Unverified 04/08/23 15:51) leg swelling gabapentin Adverse Reaction (Intermediate, Verified 04/08/23 14:55) lethargy lisinopril Adverse Reaction (Intermediate, Verified 04/08/23 14:55) Cough metformin Adverse Reaction (Intermediate, Verified 04/08/23 14:55) lethargy Tobacco use date assessed: 04/06/23 Fall risk assessment: No Falls in past year Dental Screening Dental Screen Date: 04/08/23 Did you have a dental visit in the last 12 months?: Yes Did you have a dental problem in the last 6 months where you did not have access to dental care?: No Was dental information given to patient?: Patient has dentist HPI Pre-Op eye surgery 04/26/23 HPI Details 77-year-old overweight male with diabetes mellitus hypercholesterolemia hypertension congestive heart failure with atrial fibrillation obstructive sleep apnea coming in for preop. Patient was last seen in January 2023 and blood work was requested. Patient was recently seen by the nurse practitioner for hospital discharge March 22 2023 yesterday having bilateral pleural effusion with abdominal ascites placed on Lasix 40 mg once a day and diuresed. December 2022 echocardiogramThe left ventricular systolic function is normal.? The ? calculated ejection fraction is 67% by biplane method. ? - No obvious valvular pathology seen on this study.? ? Patient on is feeling good with no shortness of breath is able to climb up a flight of stairs although on the top does gets some shortness of breath but otherwise no nausea no vomiting no chest pains no bowel bladder symptoms. ? [facility] Medical History (HFpEF) heart failure with preserved ejection fraction Anxiety and depression Bilateral pleural effusion CHF (congestive heart failure) CKD (chronic kidney disease) stage 3, GFR 30-59 ml/min Hypercholesterolemia Non Hodgkin's lymphoma Obesity (BMI 30-39.9) Obesity (BMI 30-39.9) LARISSA (obstructive sleep apnea) PAF (paroxysmal atrial fibrillation) Peptic ulcer disease Physical deconditioning Pneumonia Thrombocytopenia Type 2 diabetes mellitus with hyperglycemia Type 2 diabetes mellitus with unspecified complications Vitamin D deficiency Surgical History H/O colonoscopy H/O lymph node biopsy History of esophagogastroduodenoscopy (EGD) History of shoulder surgery Hx of cataract extraction Family History Father Lung cancer Mother Breast cancer Sister Breast cancer Brother Substance use disorder Sister No problems noted. Son No problems noted. Daughter No problems noted. Social History Household Members: Spouse and Children Housing: House Are you a primary acute care physician to a significant other at home: No Do you presently have visiting nurse or other home services: No Alcohol intake: never Patient Tobacco Use Status: Never used Tobacco e-Cigarette/Vaping Use: Never Used Second Hand Smoke Exposure: No Advance Directives Date on File: 12/19/21 service: No Current occupational status: retired Cognitive needs: Yes (pricila Grant) Hearing needs: No Vision needs: Yes Questionnaire PHQ-9 Over the last 2 weeks, how often have you been bothered by any of the following problems? 1. Little interest or pleasure in doing things: nearly every day 2. Feeling down, depressed, or hopeless: more than half the days 3. Trouble falling or staying asleep, or sleeping too much: nearly every day 4. Feeling tired or having little energy: nearly every day 5. Poor appetite or overeating: nearly every day 6. Feeling bad about yourself - or that you are a failure or have let yourself or your family down: not at all 7. Trouble concentrating on things, such as reading the newspaper or watching television: nearly every day 8. Moving or speaking so slowly that other people could have noticed. Or the opposite - being so fidgety or restless that you have been moving around a lot more than usual: nearly every day 9. Thoughts that you would be better off or of hurting yourself in some way: not at all Total score: 20 Depression Screening Interpretation: Positive 72944 - PHQ-9 Billing: Yes Source: Developed by Drs. Simon Zhou, Ayo Hager and colleagues, with an educational skye from [employer] Thrive Questionnaire Date Thrive assessed: 03/20/23 AUDIT C Alcohol Use Questionnaire (AUDIT-C) 1. How often do you have a drink containing alcohol?: Never 2. How many drinks containing alcohol do you have on a typical day when you are drinking?: 1 or 2 3. How often do you have six or more drinks on one occasion?: Never Total Score: 0 Score Reviewed/Action Taken: No AIDAN-7 AMB Questionnaire AIDAN-7 Date AIDAN - 7 assessed: 10/21/22 Source: Developed by Drs. Simon Zhou, Ayo Hager and colleagues, with an educational skye from [employer] Review of Systems Const Denies poor appetite and Denies weakness Eyes Denies no additional complaints ENT Reports Normal hearing present, Denies dizziness, Denies nasal congestion, Denies tinnitus and Denies sore throat Card Denies chest pain, Denies syncope, Denies rapid heart rate and Denies dyspnea Resp Denies cough and Denies dyspnea GI Denies change in stool character, Reports constipation, Denies diarrhea, Denies nausea and Denies vomiting Denies dysuria and Denies urinary frequency Neuro Reports Normal hearing present, Denies confusion, Denies dizziness, Denies syncope and Denies weakness Psych Denies confusion Physical exam (Primary Care) Vital Signs: Last Vital Signs Pulse 60 04/08/23 14:54 BP 136/76 04/08/23 14:54 Pulse Ox 98 04/08/23 14:54 Oxygen Delivery Method Room Air 04/08/23 14:54 BMI result Body Mass Index 27.7 Tobacco/Smoking Status: Tobacco use Status Tobacco use date assessed 04/06/23 04/08/23 15:00 Patient Tobacco Use Status Never used Tobacco 04/08/23 15:00 e-Cigarette/Vaping Use Never Used 04/08/23 15:00 PHQ-9: PHQ-9 Score PHQ-9: Total score 20 04/08/23 15:00 Depression Screening Interpretation: Positive Thrive Assessment: Date of Thrive Assessment Date Thrive assessed 03/20/23 04/08/23 15:00 Const General: No confusion Orientation/consciousness: No confusion Neuro General: No confusion Cranial nerves: Yes Normal hearing present Assessment and Plan Assessment & Plan (1) Preop exam for internal medicine: Code(s): Z01.818 - Encounter for other preprocedural examination Plan: echo cardiogram 12/2022 N EF and with no valvular abn. Blood work and chest x- ray as well as EKG requested. Will follow-up on this. (2) PAF (paroxysmal atrial fibrillation): Comment: Cardioversion 12/04/2021 Code(s): I48.0 - Paroxysmal atrial fibrillation Plan: Continue with anticoagulation with Eliquis 5 mg twice a day, controleld rate (3) CHF (congestive heart failure): Code(s): I50.9 - Heart failure, unspecified Plan: Continue with the diuretic furosemide 40 mg once a day weigh daily. will ff up on the chest xray (4) Hypothyroid: Code(s): E03.9 - Hypothyroidism, unspecified Plan: Continue with thyroid medication (5) LARISSA (obstructive sleep apnea): Code(s): G47.33 - Obstructive sleep apnea (adult) (pediatric) Plan: Continue to use the CPAP more than 4 hours a night and benefits from this (6) Hypercholesterolemia: Code(s): E78.00 - Pure hypercholesterolemia, unspecified Plan: Avoid fried foods, chicken skin, eggs, butter margarine, pastries and meat. Be it pork or beef they have a lot of cholesterol LDL goal of less than 100 and triglyceride of less than 150 patient is on atorvastatin 40 mg once a day (7) Essential hypertension: Code(s): I10 - Essential (primary) hypertension Plan: Continue with blood pressure medication. Decrease salt intake and exercise patient is on metoprolol 100 mg once a day (8) Pleural effusion: Code(s): J90 - Pleural effusion, not elsewhere classified Orders: Orders B Type Natriuretic Peptide Today I50.9 - Heart failure, unspecified XR chest 2V Today I50.9 - Heart failure, unspecified Magnesium Today I50.9 - Heart failure, unspecified Phosphorus Today I50.9 - Heart failure, unspecified ECG 12 lead EKG Today I50.9 - Heart failure, unspecified Medications: Discontinued levothyroxine 75 mcg PO DAILY 90 days 90 tabs 2RF E03.9 - Hypothyroidism, unspecified atorvastatin 40 mg PO DAILY 90 tabs 3RF Coding Level of Care Code Est Pt Level 4 (45140) Diagnoses Preop exam for internal medicine Z01.818 PAF (paroxysmal atrial fibrillation) I48.0 CHF (congestive heart failure) I50.9 Hypothyroid E03.9 LARISSA (obstructive sleep apnea) G47.33 Hypercholesterolemia E78.00 Essential hypertension I10 Pleural effusion J90
== END 2023-04-08 15:56 | disposition home or self-care (01) ==
PROVIDERS: PCP Internal Medicine; Visit Provider Internal Medicine
DX: I11.0 Hypertensive heart disease with heart failure (principal); I48.0 Paroxysmal atrial fibrillation; I50.9 Heart failure, unspecified; E03.9 Hypothyroidism, unspecified; Z01.818 Encounter for other preprocedural examination; G47.33 Obstructive sleep apnea (adult) (pediatric); E78.00 Pure hypercholesterolemia, unspecified; J90 Pleural effusion, not elsewhere classified
CPT/HCPCS: 99214

== ENCOUNTER 2023-04-08 16:03 | Outpatient (REF) | payer MEDICARE, SELFPAY ==
--- NOTE | ~2023-04-08 | XR_ITS ---
EXAMINATION: XR CHEST CLINICAL INFORMATION: Heart failure COMPARISON: 03/18/2023 TECHNIQUE: 2 views of the chest were obtained. FINDINGS: Heart size within normal limits. Aortic calcifications are seen. Cephalization of vessels. No consolidations or effusions. XR/XR chest 2V IMPRESSION: Suspect mild vascular congestion.
[2023-04-08 16:12] LABS: MANUAL DIFF FLAG NO
[2023-04-08 16:31] LABS: Basophils Percent Auto 0.6 % (0-2); Eosinophils Absolute Auto 0.2 X10*3/uL (0.0-0.4); Eosinophils Percent Auto 3.3 % (0-4); Hemoglobin 12.6 g/dl (14.0-18.0); Imm Gran Abs Auto 0.04 X10*3/uL (0.00-0.03); Imm Gran Pct Auto 0.6 % (0.0-0.4); Lymphocytes Percent Auto 28.2 % (20-40); Mean Corpuscular HGB Conc 31.5 g/dl (31.0-36.0); Mean Corpuscular Hemoglobin 24.8 pg (27.0-33.0); Mean Corpuscular Volume 78.6 fL (80.0-98.0); Monocytes Absolute Auto 0.9 X10*3/uL (0.1-1.2); Neutrophils Absolute Auto 3.8 x10*3/uL (2.0-8.3); Neutrophils Percent Auto 54.3 % (45-73); Platelet Count 311 X10*3/uL (160-400); Red Blood Count 5.09 X10*6/uL (4.60-5.80); Red Cell Distribution Width 15.2 % (11.0-16.0); White Blood Count 6.9 X10*3/uL (4.8-10.8)
[2023-04-08 16:35] LABS: INTERNATIONAL NORM RATIO 1.6 (0.9-1.1); Prothrombin Time 19.7 SEC (11.1-13.3)
[2023-04-08 17:01] LABS: B Type Natriuretic Peptide 383 pg/mL (<100)
[2023-04-08 17:19] LABS: Alanine Aminotransferase 18 U/L (0-40); Albumin Level 4.1 g/dL (3.5-5.0); Alkaline Phosphatase 130 U/L (39-117); Anion Gap 19 (12-20); Aspartate Amino Transferase 26 U/L (5-37); Bilirubin Total 0.6 mg/dL (0.0-1.0); Blood Urea Nitrogen 21 mg/dL (9-16); Calcium 10.2 mg/dL (8.4-10.2); Carbon Dioxide 24 mmol/L (22-29); Chloride 100 mmol/L (96-108); Estimated Glomerular Filt Rate 52; Glucose Random 82 mg/dL (60-115); Iron 25 mcg/dL (45-160); Percent Iron Saturation 11 % (15-50); Phosphorus 3.5 mg/dL (2.7-4.5); Potassium 3.9 mmol/L (3.3-5.1); Sodium 139 mmol/L (135-145); Total Iron Binding Capacity 222 mcg/dL (228-428); Total Protein 7.1 g/dL (6.5-8.0); Unsaturated Iron Binding 197 ug/dL
[2023-04-08 17:35] LABS: Ferritin 183 ng/mL (20-250)
== END 2023-04-08 16:04 | disposition home or self-care (01) ==
LOC: HO.LAB 16:03
PROVIDERS: Absent Provider Internal Medicine; PCP Internal Medicine; Visit Provider Nurse Practitioner Family
DX: Z13.0 Encounter for screening for diseases of the blood and blood-forming organs and certain disorders involving the immune mechanism (principal); I50.9 Heart failure, unspecified; D64.9 Anemia, unspecified
CPT/HCPCS: 36415; 71046; 80053; 82728; 83540; 83735; 83880; 84100; 85025; 85610

== ENCOUNTER → 2023-04-13 08:47 | Outpatient (REF) | payer MEDICARE, SELFPAY ==
--- NOTE | 2023-04-13 08:56 | ECG_ITS ---
Test Reason : pre op Blood Pressure : / mmHG Vent. Rate : 107 BPM Atrial Rate : 000 BPM P-R Int : 000 ms QRS Dur : 070 ms QT Int : 346 ms P-R-T Axes : 000 049 -63 degrees QTc Int : 461 ms Atrial fibrillation with rapid ventricular response with premature ventricular or aberrantly conducted complexes Nonspecific ST and T wave abnormality Abnormal ECG When compared with ECG of 18-MAR-2023 09:54, Premature ventricular complexes are now Present Vent. rate has increased Referred By: Carmen Peters Electronically Signed By:MATILDE BATISTA
== END ==
LOC: HO.CARD 08:47
PROVIDERS: PCP Internal Medicine; Visit Provider Internal Medicine
DX: I50.9 Heart failure, unspecified (principal)
CPT/HCPCS: 93005

== ENCOUNTER 2023-04-21 12:54 | Outpatient (AMB) | payer MEDICARE, SELFPAY ==
[2023-04-21 12:59] VITALS: BP 110/80; PULSE 74; BMI 27.2
--- NOTE | 2023-04-21 12:59 | MHC.OFFVIS ---
Intake Vital Signs 04/21/23 12:59 Height 5 ft 5 in Weight 163 lb 9.328 oz BMI 27.2 BP 110/80 Blood Pressure Location Lt brachial Position Sitting Pulse 74 Intake Visit Reasons: follow up EKG Intake Note: follow up Adjunct Nursing Faculty Required: No Accompanied by: Spouse Allergies amlodipine Adverse Reaction (Intermediate, Verified 04/21/23 13:01) leg swelling gabapentin Adverse Reaction (Intermediate, Verified 04/21/23 13:01) lethargy lisinopril Adverse Reaction (Intermediate, Verified 04/21/23 13:01) Cough metformin Adverse Reaction (Intermediate, Verified 04/21/23 13:01) lethargy Medication List - Last Reconciled 04/21/23 by Brain Su MD albuterol sulfate 90 mcg/actuation (Ventolin HFA) 1 inh inhalation QID PRN apixaban (Eliquis) 5 mg PO BID atorvastatin 40 mg PO DAILY cholecalciferol (vitamin D3) (Vitamin D3) 25 mcg PO DAILY escitalopram oxalate 10 mg PO DAILY ferrous sulfate 325 mg PO DAILY finasteride 5 mg PO DAILY 90 days furosemide 40 mg PO DAILY glipizide ER 5 mg PO DAILY levothyroxine 75 mcg PO DAILY@1100 metoprolol succinate ER 100 mg PO DAILY 90 days multivitamin 1 tab PO DAILY nystatin 1 appl See Protocol topical TID 7 days tamsulosin 0.4 mg PO BEDTIME 30 days walker (Ultra-Light Rollator misc) As directed HPI HPI Comments History of Present Illness Details Augustus returns for follow-up all regarding atrial fibrillation and congestive heart failure. In the past, he underwent cardioversion for this but there was no clear difference between being in atrial fibrillation and when he was in sinus. He was briefly on amiodarone and then it was stopped. More recently, he has had heart failure hospitalization and not clear if that is related to atrial fibrillation. He did undergo a lot of diuresis. He states that he is feeling better but shortness of breath is still not back to normal. He did have a lot of leg swelling but that is improved. also comes for the appointment. [facility] History (Updated 04/16/23 @ 07:09 by IVONE Rojas) Bilateral pleural effusion Pneumonia Physical deconditioning CKD (chronic kidney disease) stage 3, GFR 30-59 ml/min (HFpEF) heart failure with preserved ejection fraction Obesity (BMI 30-39.9) LARISSA (obstructive sleep apnea) PAF (paroxysmal atrial fibrillation) CHF (congestive heart failure) Type 2 diabetes mellitus with unspecified complications Peptic ulcer disease Non Hodgkin's lymphoma Anxiety and depression Hypercholesterolemia Vitamin D deficiency Obesity (BMI 30-39.9) Type 2 diabetes mellitus with hyperglycemia Thrombocytopenia Surgical History Hx of cataract extraction History of esophagogastroduodenoscopy (EGD) H/O colonoscopy H/O lymph node biopsy History of shoulder surgery Family History Father Lung cancer Mother Breast cancer Sister Breast cancer Brother Substance use disorder Sister No problems noted. Son No problems noted. Daughter No problems noted. Social History Household Members: Spouse and Children Housing: House Are you a primary healthcare administrative assistant to a significant other at home: No Do you presently have visiting nurse or other home services: No Alcohol intake: never Patient Tobacco Use Status: Never used Tobacco e-Cigarette/Vaping Use: Never Used Second Hand Smoke Exposure: No Advance Directives Date on File: 12/19/21 service: No Current occupational status: retired Cognitive needs: Yes (Walker, cane) Hearing needs: No Vision needs: Yes Review of Systems Const Denies weakness ENT Denies dizziness Card Denies chest pain, Denies chest pain with activity, Denies syncope, Denies rapid heart rate, Denies pedal edema, Denies edema, Denies leg edema, Denies lightheadedness, Denies palpitations, Denies dyspnea, Denies dyspnea on exertion and Denies orthopnea Resp Denies cough, Denies dyspnea and Denies dyspnea on exertion GI Denies hematochezia and Denies change in stool character Musc Denies abnormal gait, Denies muscle cramps, Denies muscle weakness, Denies numbness, Denies radiating pain into limb and Denies tingling Neuro Denies abnormal gait, Denies dizziness, Denies syncope, Denies numbness, Denies tingling and Denies weakness Endo Denies palpitations Physical Exam Vital Signs: Last Vital Signs Pulse 74 04/21/23 12:59 BP 110/80 04/21/23 12:59 BMI result Body Mass Index 27.2 Const General: comfortable and no acute distress Orientation/consciousness: patient oriented x3 HEENT Other: Unremarkable Head: Yes normal to inspection Neck Neck: Yes normal visual inspection Chest Chest palpation & inspection: normal inspection of the chest Resp Auscultation: clear to auscultation bilaterally Cardio Palpation: normal PMI Heart sounds: S1 normal heart sound present, S2 normal heart sound present, no gallops, no murmurs and no rubs GI Palpation (GI): Soft to palpation Back/Spine/Pelvis Other: unremarkable Skin General skin exam: no rashes or lesions noted Neuro General: patient oriented x3 Extrem General: Yes normal to inspection Psych Mental Status: mental status grossly normal Assessment & Plan Assessment & Plan (1) PAF (paroxysmal atrial fibrillation): Comment: Cardioversion 12/04/2021 Code(s): I48.0 - Paroxysmal atrial fibrillation Plan: Cardioversion done in 2021. Due to recent heart failure hospitalization and ongoing shortness of breath symptoms, recommend that he undergo another cardioversion. He can start amiodarone loading followed by maintenance and then we can schedule cardioversion in 2-3 weeks or so. That will ensure high likelihood of success. Otherwise, continue with anticoagulation without changes. By EKG, in sinus rhythm in December this year but in March in atrial fibrillation. Hence not entirely clear when he converted to atrial fibrillation. (2) Chronic heart failure with preserved ejection fraction (HFpEF): Code(s): I50.32 - Chronic diastolic (congestive) heart failure Plan: Continue diuretics. (3) Essential hypertension: Code(s): I10 - Essential (primary) hypertension Plan: Stable. No changes. (4) Type 2 diabetes mellitus with unspecified complications: Code(s): E11.8 - Type 2 diabetes mellitus with unspecified complications Plan: On glipizide. (5) LARISSA (obstructive sleep apnea): Code(s): G47.33 - Obstructive sleep apnea (adult) (pediatric) Plan: On CPAP. Medications: Changed From escitalopram oxalate 10 mg PO DAILY 90 days 90 tabs 2RF F32.1 - Major depressive disorder, single episode, moderate To escitalopram oxalate 10 mg PO DAILY F32.1 - Major depressive disorder, single episode, moderate Coding Level of Care Code Est Pt Level 4 (08028) Diagnoses PAF (paroxysmal atrial fibrillation) I48.0 Chronic heart failure with preserved ejection fraction (HFpEF) I50.32 Essential hypertension I10 Type 2 diabetes mellitus with unspecified complications E11.8 LARISSA (obstructive sleep apnea) G47.33
== END 2023-04-21 13:22 | disposition home or self-care (01) ==
PROVIDERS: PCP Internal Medicine; Visit Provider Internal Medicine
DX: I48.0 Paroxysmal atrial fibrillation (principal); I50.32 Chronic diastolic (congestive) heart failure; I10 Essential (primary) hypertension; E11.8 Type 2 diabetes mellitus with unspecified complications; G47.33 Obstructive sleep apnea (adult) (pediatric)
CPT/HCPCS: 99214

== ENCOUNTER → 2023-04-21 12:54 | Outpatient (BNVA) | payer MEDICARE, SELFPAY | PROVIDERS: PCP Internal Medicine; Visit Provider Internal Medicine | DX: I48.0 Paroxysmal atrial fibrillation (principal); I11.0 Hypertensive heart disease with heart failure; I50.32 Chronic diastolic (congestive) heart failure; E11.9 Type 2 diabetes mellitus without complications; G47.33 Obstructive sleep apnea (adult) (pediatric) | CPT/HCPCS: 99212 ==

== ENCOUNTER → 2023-04-28 09:49 | Outpatient (BNVA) | payer MEDICARE, SELFPAY | PROVIDERS: PCP Internal Medicine; Visit Provider Internal Medicine ==

== ENCOUNTER → 2023-05-13 10:38 | Day surgery (SDC) | payer MEDICARE, SELFPAY ==
[2023-05-13 10:39] VITALS: BMI 27.3
[2023-05-13 10:45] VITALS: BP 171/77; PULSE 63; RESP 20; TEMP 36.3; O2SAT 98
--- NOTE | 2023-05-13 11:01 | ECG_ITS ---
Test Reason : rhythm check Blood Pressure : / mmHG Vent. Rate : 060 BPM Atrial Rate : 060 BPM P-R Int : 202 ms QRS Dur : 074 ms QT Int : 468 ms P-R-T Axes : 076 039 035 degrees QTc Int : 468 ms Normal sinus rhythm Normal ECG When compared with ECG of 13-APR-2023 08:56, Sinus rhythm has replaced Atrial fibrillation Vent. rate has decreased BY 47 BPM Nonspecific T wave abnormality, improved in Inferior leads Premature ventricular complexes are no longer Present Referred By: Brain Su Electronically Signed By:MATILDE BATISTA
[2023-05-13 11:03] VITALS: BP 158/70; PULSE 65; RESP 18; TEMP 36.1; O2SAT 97
--- NOTE | 2023-05-13 11:10 | PC.NURSE ---
pt in nsr ekg ordered dr rivero aware will talk to patient pt aware
--- NOTE | 2023-05-13 11:46 | PC.NURSE ---
patient discharge home in nsr dr guardado at bedside pt aware of new careplan will f/u with cardio wifr called nad
== END ==
PROVIDERS: PCP Internal Medicine; Visit Provider Internal Medicine
DX: I48.0 Paroxysmal atrial fibrillation (principal); Z53.8 Procedure and treatment not carried out for other reasons
CPT/HCPCS: 93005

== ENCOUNTER 2023-05-25 09:48 | Outpatient (AMB) | payer MEDICARE, SELFPAY ==
--- NOTE | 2023-05-25 09:49 | A.OFFVIS_ITS ---
Intake Vital Signs 05/25/23 09:50 Height 5 ft 5 in Weight 165 lb 5.547 oz BMI 27.5 BP 118/64 Blood Pressure Location Rt brachial Position Sitting Pulse 64 Pulse Source Pulse Oximeter Pulse Oximetry (%) 98 Oxygen Delivery Method Room Air Intake Visit Reasons: dyspnea Bed Rubber Required: No Motor Vehicle Compliance Analyst: Motor Vehicle Compliance Analyst offered & declined Accompanied by: Spouse Allergies amlodipine Adverse Reaction (Intermediate, Verified 05/25/23 10:07) leg swelling gabapentin Adverse Reaction (Intermediate, Verified 05/25/23 10:07) lethargy lisinopril Adverse Reaction (Intermediate, Verified 05/25/23 10:07) Cough metformin Adverse Reaction (Intermediate, Verified 05/25/23 10:07) lethargy Medication List - Last Reconciled 05/25/23 by Caitlin Mcduffie MD albuterol sulfate 90 mcg/actuation (Ventolin HFA) 1 inh inhalation QID PRN amiodarone 200 mg PO DIRECTED apixaban (Eliquis) 5 mg PO BID ascorbic acid (vitamin C) 250 mg PO DAILY atorvastatin 40 mg PO DAILY cholecalciferol (vitamin D3) (Vitamin D3) 25 mcg PO DAILY escitalopram oxalate 10 mg PO DAILY ferrous sulfate 325 mg PO DAILY finasteride 5 mg PO DAILY 90 days furosemide 40 mg PO DAILY glipizide ER 5 mg PO DAILY levothyroxine 75 mcg PO DAILY@1100 metoprolol succinate ER 100 mg PO DAILY 90 days multivitamin 1 tab PO DAILY nystatin 1 appl See Protocol topical TID 7 days tamsulosin 0.4 mg PO BEDTIME 30 days walker (Ultra-Light Rollator misc) As directed Do you need a note to return to daycare/school/sports/work: No HPI dyspnea HPI Details 77 YEARS OLD VERY PLEASANT GENTLEMAN COM AFTER 6 MONTHS FOR FOLLOW- UP. HE DOES HAVE MILD COPD AND USES ALBUTEROL HFA ONLY P.R.N. WHICH IS ONCE IN A WHILE. HE ALSO HAD OBSTRUCTIVE SLEEP APNEA FOR WHICH HE HAS BEEN USING CPAP FOR A FEW YEARS. IN MARCH OF THIS YEAR HE WAS ADMITTED TO THE HOSPITAL FOR CONGESTIVE HEART FAILURE. ONE STARTED ON DIURESIS HE LOST LOT OF WEIGHT, . HIS BREATHING IMPROVED GREATLY AND HE STOPPED USING THE CPAP. HE CLAIMS THAT PUTTING ON THE CPAP MASK MAKES IS NOSE CONGESTED AND HE JUST CANNOT BREATHE WELL. SINCE THE MID MARCH HE IS NOT USING IT REGULARLY, AND SINCE MID HE HAS NOT USED AT ALL PATIENT CLAIMS THAT HE SLEEPS MUCH BETTER WITHOUT THE MASK. HE DENIES FREQUENT AWAKENING AND DENIES ANY DAYTIME SLEEPINESS. [facility] Medical History Bilateral pleural effusion Pneumonia Physical deconditioning CKD (chronic kidney disease) stage 3, GFR 30-59 ml/min (HFpEF) heart failure with preserved ejection fraction Obesity (BMI 30-39.9) LARISSA (obstructive sleep apnea) PAF (paroxysmal atrial fibrillation) CHF (congestive heart failure) Type 2 diabetes mellitus with unspecified complications Peptic ulcer disease Non Hodgkin's lymphoma Anxiety and depression Hypercholesterolemia Vitamin D deficiency Obesity (BMI 30-39.9) Type 2 diabetes mellitus with hyperglycemia Thrombocytopenia Surgical History Hx of cataract extraction History of esophagogastroduodenoscopy (EGD) H/O colonoscopy H/O lymph node biopsy History of shoulder surgery Family History Father Lung cancer Mother Breast cancer Sister Breast cancer Brother Substance use disorder Sister No problems noted. Son No problems noted. Daughter No problems noted. Social History Household Members: Spouse and Children Housing: House Are you a primary body care manager to a significant other at home: No Do you presently have visiting nurse or other home services: No Alcohol intake: never Patient Tobacco Use Status: Never used Tobacco e-Cigarette/Vaping Use: Never Used Second Hand Smoke Exposure: No Advance Directives Date on File: 12/19/21 service: No Current occupational status: retired Cognitive needs: Yes (Walker canniki) Hearing needs: No Vision needs: Yes Review of Systems Const All systems reviewed & are unremarkable except as noted in HPI and below Reports snoring Eyes Reports no additional complaints ENT Reports no additional complaints Card Reports irregular heart rhythm and Reports dyspnea on exertion Resp Denies cough, Reports dyspnea on exertion, Reports snoring and Denies wheezing GI Reports no additional complaints Reports nocturia Musc Reports no additional complaints Skin/Breast Reports system reviewed and no additional complaints, except as documented Neuro Reports no additional complaints Psych Reports no additional complaints Aller/Immun Denies wheezing Physical Exam Vital Signs: Last Vital Signs Pulse 64 05/25/23 09:50 BP 118/64 05/25/23 09:50 Pulse Ox 98 05/25/23 09:50 Oxygen Delivery Method Room Air 05/25/23 09:50 BMI result Body Mass Index 27.5 Has a round face. Narrow oropharynx, Mallampati class 4. Neck size 16-1/2 inch. Const General: comfortable, no acute distress, alert and awake Orientation/consciousness: patient oriented x3 HEENT Head: Yes normal to inspection General nose exam: No nasal polyps present and No nasal discharge present Face and sinus: Yes sinuses nontender Mouth: oropharynx abnormals (Narrow and crowded Mallampati class 4) Throat: Yes posterior oropharynx normal Eyes General: appearance normal, both eyes and all related structures Neck Neck: Yes normal visual inspection, Yes no lymphadenopathy, Yes trachea midline, Yes no JVD and Yes other (Neck circumference 16-1/2 inch) Thyroid: Thyroid normal Chest Chest palpation & inspection: normal inspection of the chest, normal palpation of entire chest wall and no tenderness Resp Other: Percussion note resonant, breath sounds are slightly distant. No wheezes or rhonchi are heard. Cardio Palpation: normal PMI Rate: regular rate Rhythm: regular rhythm Heart sounds: no gallops and no murmurs GI Palpation (GI): Soft to palpation, nontender, No hepatosplenomegaly present, no masses and Other GI palpation findings present (Abdomen is moderately obese and protuberant) Auscultation: normal bowel sounds Back/Spine/Pelvis Thoracic/Lumbar Spine: thoracic and lumbar spine normal to inspection Skin General skin exam: no rashes or lesions noted Neuro General: patient oriented x3 and no focal motor deficits Cranial nerves: Yes CN's II-XII intact bilaterally Extrem General: Yes normal to inspection, Yes no clubbing, cyanosis or edema and Yes no calf tenderness Psych Appearance: grossly normal and well kempt Speech and movement: Normal speech and movement present Results Reviewed Results Reviewed: COMPLIANCE REPORT IS REVIEWED. IN FACT SINCE HIS HE HAS NOT USE THE CPAP. Assessment & Plan Assessment & Plan (1) LARISSA (obstructive sleep apnea): Comment: PATIENT HAS HISTORY OF OBSTRUCTIVE SLEEP APNEA AND USED TO BE ON CPAP REGULARLY. SINCE THE LAST MONTH HE IS NOT USING CPAP AT ALL AND CLAIMS THAT. HE IS SLEEPING BETTER I THINK DUE TO SIGNIFICANT WEIGHT REDUCTION, HIS LARISSA HAS RESOLVED. ADVISED TO KEEP HIS WEIGHT DOWN. THE WEIGHT HAS ACTUALLY COME DOWN WITH EFFECTIVE DIURESIS. DOES NOT HAVE TO USE. THE CPAP Code(s): G47.33 - Obstructive sleep apnea (adult) (pediatric) (2) Restrictive lung disease: Comment: PULMONARY FUNCTION TEST SHOWS MODERATELY SEVERE RESTRICTIVE PULMONARY DISORDER, THIS IS MAINLY DUE TO HIS OBESITY, WHICH HAS IMPROVED SIGNIFICANTLY ADVISED TO KEEP ON DOING DEEP BREATHING EXERCISES. HE DOES HAVE INCENTIVE SPIROMETRY DEVICE AT HOME. Code(s): J98.4 - Other disorders of lung (3) Dyspnea on exertion: Comment: DYSPNEA ON EXERTION, MULTIFACTORIAL, CONTRIBUTED BY: WEIGHT GAIN, RESTRICTIVE PULMONARY DISORDER WELL CHF . IT IS MUCH IMPROVED SINCE HE IS ON DIURETIC THERAPY. Code(s): R06.09 - Other forms of dyspnea Coding Level of Care Code Est Pt Level 3 (59781) Diagnoses LARISSA (obstructive sleep apnea) G47.33 Restrictive lung disease J98.4 Dyspnea on exertion R06.09
[2023-05-25 09:50] VITALS: BP 118/64; PULSE 64; O2SAT 98; BMI 27.5
== END 2023-05-25 10:18 | disposition home or self-care (01) ==
PROVIDERS: PCP Internal Medicine; Visit Provider Internal Medicine
DX: G47.33 Obstructive sleep apnea (adult) (pediatric) (principal); J98.4 Other disorders of lung; R06.09 Other forms of dyspnea
CPT/HCPCS: 99213

== ENCOUNTER → 2023-05-25 09:48 | Outpatient (BNVA) | payer MEDICARE, SELFPAY | PROVIDERS: PCP Internal Medicine; Visit Provider Internal Medicine | DX: R06.09 Other forms of dyspnea (principal); J98.4 Other disorders of lung; G47.33 Obstructive sleep apnea (adult) (pediatric) | CPT/HCPCS: 99212 ==

== ENCOUNTER 2023-06-22 09:43 | Outpatient (AMB) | payer MEDICARE, SELFPAY ==
--- NOTE | 2023-06-22 10:00 | A.OFFVIS_ITS ---
Intake Intake Visit Reasons: 4M PVR Intake Note: Patient presents today for a follow-up on PVR Urology Med: Tamsulosin Antibiotic Allergy: None Blood Thinner: Apixaban (Eliquis) PVR: 0ml Latex Spooler Required: No Accompanied by: Self / Same As Patient Allergies amlodipine Adverse Reaction (Intermediate, Verified 06/22/23 10:02) leg swelling gabapentin Adverse Reaction (Intermediate, Verified 06/22/23 10:02) lethargy lisinopril Adverse Reaction (Intermediate, Verified 06/22/23 10:02) Cough metformin Adverse Reaction (Intermediate, Verified 06/22/23 10:02) lethargy Medication List - Last Reconciled 06/22/23 by Satinder Perez MD albuterol sulfate 90 mcg/actuation (Ventolin HFA) 1 inh inhalation QID PRN amiodarone 200 mg PO DIRECTED apixaban (Eliquis) 5 mg PO BID ascorbic acid (vitamin C) 250 mg PO DAILY atorvastatin 40 mg PO DAILY cholecalciferol (vitamin D3) (Vitamin D3) 25 mcg PO DAILY escitalopram oxalate 10 mg PO DAILY ferrous sulfate 325 mg PO DAILY finasteride 5 mg PO DAILY 90 days furosemide 40 mg PO DAILY glipizide ER 5 mg PO DAILY levothyroxine 75 mcg PO DAILY@1100 metoprolol succinate ER 100 mg PO DAILY 90 days multivitamin 1 tab PO DAILY nystatin 1 appl See Protocol topical TID 7 days tamsulosin 0.4 mg PO BEDTIME 30 days walker (Ultra-Light Rollator misc) As directed HPI HPI Comments History of Present Illness Details Augustus is a very pleasant male. He is a patient of Dr. Peters. He seen for the following urologic conditions - urinary retention - erectile dysfunction PVR 0 Feels he has weakness of stream Suggest bladder ultrasound cystoscopy in 3 months May alter timing for Lasix medications so can sleep during the night Secondary issue erectile dysfunction. Discussed penile vacuum pumps Urinary retention Prior episode seen emergency room Rincon catheter placed for 1400 cc Had history of progressive weakness of stream Current therapy finasteride plus tamsulosin PFSH Medical History Bilateral pleural effusion Pneumonia Physical deconditioning CKD (chronic kidney disease) stage 3, GFR 30-59 ml/min (HFpEF) heart failure with preserved ejection fraction Obesity (BMI 30-39.9) LARISSA (obstructive sleep apnea) PAF (paroxysmal atrial fibrillation) CHF (congestive heart failure) Type 2 diabetes mellitus with unspecified complications Peptic ulcer disease Non Hodgkin's lymphoma Anxiety and depression Hypercholesterolemia Vitamin D deficiency Obesity (BMI 30-39.9) Type 2 diabetes mellitus with hyperglycemia Thrombocytopenia Surgical History Hx of cataract extraction History of esophagogastroduodenoscopy (EGD) H/O colonoscopy H/O lymph node biopsy History of shoulder surgery Family History Father Lung cancer Mother Breast cancer Sister Breast cancer Brother Substance use disorder Sister No problems noted. Son No problems noted. Daughter No problems noted. Social History Household Members: Spouse and Children Housing: House Are you a primary healthcare architect to a significant other at home: No Do you presently have visiting nurse or other home services: No Alcohol intake: never Patient Tobacco Use Status: Never used Tobacco e-Cigarette/Vaping Use: Never Used Second Hand Smoke Exposure: No Advance Directives Date on File: 12/19/21 service: No Current occupational status: retired Cognitive needs: Yes (Walker, cane) Hearing needs: No Vision needs: Yes Review of Systems Const Denies chills and Denies fever(s) Card Reports no additional complaints and Denies syncope Resp Denies cough GI Denies abdominal pain and Denies heartburn Reports as per HPI and Denies change in libido Neuro Denies syncope Psych Denies change in libido Endo Denies change in libido Physical Exam Const General: cooperative, healthy appearing, comfortable and no acute distress Orientation/consciousness: patient oriented x3 HEENT Face and sinus: Yes normal facial exam Mouth: moist mucous membranes Neck Neck: Yes normal visual inspection, Yes full ROM and Yes trachea midline Chest Chest palpation & inspection: normal inspection of the chest Resp Effort & Inspection: normal respiratory effort, able to speak in complete sentences and no respiratory distress GI Inspection: Yes normal to inspection Back/Spine/Pelvis Cervical Spine: normal cervical lordosis Thoracic/Lumbar Spine: thoracic and lumbar spine normal to inspection Skin General skin exam: no rashes or lesions noted Neuro General: patient oriented x3, gait normal, tone normal and moves all extremities Extrem General: Yes normal to inspection and Yes capillary refill normal Office Procedures Post Void Residual Post Residual Void Post Void Residual (PVR): 0 [id number] Void Residual by ultrasound Results AMB Urinalysis, Automated UA Leukoctes 0 Prem/uL Last Edit by Katherin Naranjo Tanna on 06/22/23 10:16 UA Nitrite Negative Last Edit by Katherin Naranjo [facility] on 06/22/23 10:16 UA Urobilinogen 0.2 mg/dL Last Edit by Katherin Naranjo [facility] on 06/22/23 10:1 6 UA Protein 0 mg/dL Last Edit by Katherin Naranjo [facility] on 06/22/23 10:16 UA pH 6.0 Last Edit by Katherin Naranjo [facility] on 06/22/23 10:16 UA Blood 0 Pawan/uL Last Edit by Katherin Naranjo [facility] on 06/22/23 10:16 UA Specific [place] 1.015 Last Edit by Katherin Naranjo [facility] on 06/22/23 10: 16 UA Ketone Negative Last Edit by Katherin Naranjo [facility] on 06/22/23 10:16 UA Bilirubin 0 mg/dL Last Edit by Katherin Naranjo [facility] on 06/22/23 10:16 UA Glucose 0 mg/dL Last Edit by Katherin Naranjo [facility] on 06/22/23 10:16 Results Reviewed Results Reviewed: Laboratory Last Values Urine pH (Auto) 6.0 06/22/23 10:15 Specific [place] (Auto) 1.015 06/22/23 10:15 Urine Protein (Auto) 0 mg/dL 06/22/23 10:15 Glucose (UA)(Auto) 0 mg/dL 06/22/23 10:15 Urine Ketones (Auto) Negative 06/22/23 10:15 Urine Blood (Auto) 0 Pawan/uL 06/22/23 10:15 Urine Nitrite (Auto) Negative 06/22/23 10:15 Urine Bilirubin (Auto) 0 mg/dL 06/22/23 10:15 Urine Urobilinogen (Auto) 0.2 mg/dL 06/22/23 10:15 Leukocyte Esterase (Auto) 0 Prem/uL 06/22/23 10:15 Assessment & Plan Assessment & Plan (1) Incomplete emptying of bladder due to benign prostatic hyperplasia: Code(s): N40.1 - Benign prostatic hyperplasia with lower urinary tract symptoms; R33.9 - Retention of urine, unspecified (2) Urinary retention: Code(s): R33.9 - Retention of urine, unspecified Plan Three month follow-up cystoscopy, bladder ultrasound Orders: Orders AMB Post Void Residual by ultrasound Today N39.8 - Other specified disorders of urinary system AMB Urinalysis Automated Today Z13.9 - Encounter for screening, unspecified US bladder 3 Months N40.1 - Benign prostatic hyperplasia with lower urinary tract symptoms, R33.9 - Retention of urine, unspecified Patient Instructions: Imaging studies, laboratory and physical exam results were discussed and reviewed in detail. No major barriers to patient understanding were identified. An opportunity to ask questions regarding the treatment plan was provided. All questions were answered. The patient expressed understanding and agreement with the above treatment plan. The patient is aware they should contact our office by phone for worsening of their current condition or the appearance of new urologic symptoms. Compliance is encouraged with any medications and followup testing that is ordered. It is a privilege to participate in the urologic care of your patient. If you have any questions or concerns regarding treatment for the above conditions, or other urologic issues, please do not hesitate to contact me. The office telephone contact is [phone]. This note is constructed using voice recognition software. While every effort has been made to ensure accuracy maintenance service dispatcher errors may have been included. Yours sincerely, Dr Satinder Perez MD, CHAN[facility] - Urology Providers of Expert, Compassionate Care for the Genitourinary System Coding Level of Care Code Est Pt Level 3 (84157) Diagnoses Incomplete emptying of bladder due to benign prostatic hyperplasia N40.1; R33.9 Urinary retention R33.9 CPT Codes Post Residual Void - PVR CPT Code: 27102-Qohz Void Residual by ultrasound ([id number])
== END 2023-06-22 11:15 | disposition home or self-care (01) ==
PROVIDERS: PCP Internal Medicine; Visit Provider Urology
DX: N40.1 Benign prostatic hyperplasia with lower urinary tract symptoms (principal); R33.9 Retention of urine, unspecified; Z13.9 Encounter for screening, unspecified
CPT/HCPCS: 99213

== ENCOUNTER → 2023-06-22 09:43 | Outpatient (BNVA) | payer MEDICARE, SELFPAY | PROVIDERS: PCP Internal Medicine; Visit Provider Urology | DX: N40.1 Benign prostatic hyperplasia with lower urinary tract symptoms (principal); R33.9 Retention of urine, unspecified | CPT/HCPCS: 51798; 81003; 99212 ==

== ENCOUNTER 2023-07-15 09:28 | Outpatient (REF) | payer MEDICARE, SELFPAY ==
[2023-07-15 09:54] LABS: MANUAL DIFF FLAG NO
[2023-07-15 10:04] LABS: Basophils Percent Auto 0.5 % (0-2); Eosinophils Absolute Auto 0.1 X10*3/uL (0.0-0.4); Hematocrit 35.4 % (42.0-52.0); Imm Gran Abs Auto 0.03 X10*3/uL (0.00-0.03); Imm Gran Pct Auto 0.5 % (0.0-0.4); Immature Retic Fraction 16.6 % (2.3-13.4); Lymphocytes Absolute Auto 1.3 X10*3/uL (1.2-4.9); Lymphocytes Percent Auto 22.5 % (20-40); Mean Corpuscular HGB Conc 31.1 g/dl (31.0-36.0); Mean Corpuscular Volume 80.5 fL (80.0-98.0); Mean Platelet Volume 10.2 fL (9.4-12.4); Monocytes Absolute Auto 0.6 X10*3/uL (0.1-1.2); Monocytes Percent Auto 9.3 % (2-11); Neutrophils Absolute Auto 3.9 x10*3/uL (2.0-8.3); Neutrophils Percent Auto 65.2 % (45-73); Platelet Count 182 X10*3/uL (160-400); Red Cell Distribution Width 19.3 % (11.0-16.0); Retic HGB Equivalent 28.8 pg (30.0-35.0); Reticulocyte Percent 2.5 % (0.5-1.8); Reticulocytes Absolute 0.108 X10*6/uL (0.026-0.095); White Blood Count 5.9 X10*3/uL (4.8-10.8)
[2023-07-15 10:31] LABS: Estimated Average Glucose 94 mg/dL; Hemoglobin A1c % 4.9 % (<6.0)
[2023-07-15 10:36] LABS: B Type Natriuretic Peptide 297 pg/mL (<100)
[2023-07-15 10:50] LABS: Alanine Aminotransferase 20 U/L (0-40); Albumin Level 4.1 g/dL (3.5-5.0); Alkaline Phosphatase 99 U/L (39-117); Anion Gap 13 (12-20); Aspartate Amino Transferase 24 U/L (5-37); Bilirubin Total 0.8 mg/dL (0.0-1.0); Blood Urea Nitrogen 26 mg/dL (9-16); Calcium 9.6 mg/dL (8.4-10.2); Carbon Dioxide 31 mmol/L (22-29); Chloride 104 mmol/L (96-108); Cholesterol 123 mg/dL (<200); Estimated Glomerular Filt Rate 42; Glucose Random 104 mg/dL (60-115); HDL Cholesterol 35 mg/dL (>40); Iron 84 mcg/dL (45-160); LDL Cholesterol Calculated 69 mg/dL (<100); Magnesium 2.4 mg/dL (1.6-2.6); Percent Iron Saturation 33 % (15-50); Potassium 4.7 mmol/L (3.3-5.1); Sodium 143 mmol/L (135-145); Total Iron Binding Capacity 256 mcg/dL (228-428); Total Protein 7.1 g/dL (6.5-8.0); Triglycerides 95 mg/dL (<150); Unsaturated Iron Binding 172 ug/dL
[2023-07-15 10:52] LABS: Creatinine Urine 126.37 mg/dL; Microalbum/Creatinine Ratio Ur 18.9 ug/mg cr (<30)
[2023-07-15 10:58] LABS: Ferritin 182 ng/mL (20-250); Free T4 (Free Thyroxine) 1.17 ng/dL (0.71-1.85); Thyroid Stimulating Hormone 4.24 uIU/mL (0.32-4.0)
[2023-07-15 11:09] LABS: Folate 15.8 ng/mL (> or = 4.0); Vitamin B12 501 pg/mL (200-900)
== END 2023-07-15 09:29 | disposition home or self-care (01) ==
LOC: HO.LAB 09:28
PROVIDERS: PCP Internal Medicine; Visit Provider Internal Medicine
DX: D50.9 Iron deficiency anemia, unspecified (principal); I48.0 Paroxysmal atrial fibrillation; E78.00 Pure hypercholesterolemia, unspecified; E11.65 Type 2 diabetes mellitus with hyperglycemia
CPT/HCPCS: 36415; 80053; 80061; 82043; 82570; 82607; 82728; 82746; 83036; 83540; 83735; 83880; 84439; 84443; 85025; 85045

== ENCOUNTER 2023-07-21 10:49 | Outpatient (AMB) | payer MEDICARE, SELFPAY ==
[2023-07-21 10:51] VITALS: BP 160/80; PULSE 55; O2SAT 98; BMI 28.0
--- NOTE | 2023-07-21 10:51 | MHC.PC.OV ---
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 Required: No Greenskeeper Head: Present Accompanied by: Spouse Allergies amlodipine Adverse Reaction (Intermediate, Verified 07/21/23 10:54) leg swelling gabapentin Adverse Reaction (Intermediate, Verified 07/21/23 10:54) lethargy lisinopril Adverse Reaction (Intermediate, Verified 07/21/23 10:54) Cough metformin Adverse Reaction (Intermediate, Verified 07/21/23 10:54) lethargy Medication List - Last Reconciled 07/21/23 by Carmen Peters MD amiodarone 200 mg PO DIRECTED apixaban (Eliquis) 5 mg PO BID ascorbic acid (vitamin C) 250 mg PO DAILY atorvastatin 40 mg PO DAILY cholecalciferol (vitamin D3) (Vitamin D3) 25 mcg PO DAILY doxycycline hyclate 100 mg PO BID escitalopram oxalate 10 mg PO DAILY ferrous sulfate 325 mg PO DAILY finasteride 5 mg PO DAILY 90 days furosemide 40 mg PO DAILY glipizide ER 5 mg PO DAILY levothyroxine 75 mcg PO DAILY@1100 metoprolol succinate ER 100 mg PO DAILY 90 days metronidazole 1% 1 appl topical BEDTIME multivitamin 1 tab PO DAILY nystatin 1 appl See Protocol topical TID 7 days tamsulosin 0.4 mg PO BEDTIME 30 days walker (Ultra-Light Rollator misc) As directed Tobacco use date assessed: 04/06/23 Fall risk assessment: No Falls in past year Last assessed Fall Risk: 07/21/23 Dental Screening Dental Screen Date: 07/21/23 Did you have a dental visit in the last 12 months?: Yes Did you have a dental problem in the last 6 months where you did not have access to dental care?: No Was dental information given to patient?: Patient has dentist HPI 3mth f/u HPI Details 77-year-old overweight male with atrial fibrillation congestive heart failure hypothyroidism obstructive sleep apnea hypercholesterolemia hypertension last seen in March 2023. Patient follows up with urology for urinary retention on Rincon catheter on finasteride and tamsulosin. Patient also follows up with Pulmonary for the sleep apnea but patient has not been able to use the CPAP.. Patient's atrial fibrillation is being followed up by Cardiology had cardioversion November 2021. Advised to start on amiodarone and schedule for another cardioversion. As for congestive heart failure to continue with diuresis. PAtient did not need the cardioversion and went to [facility] Medical History Bilateral pleural effusion Pneumonia Physical deconditioning CKD (chronic kidney disease) stage 3, GFR 30-59 ml/min (HFpEF) heart failure with preserved ejection fraction Obesity (BMI 30-39.9) LARISSA (obstructive sleep apnea) PAF (paroxysmal atrial fibrillation) CHF (congestive heart failure) Type 2 diabetes mellitus with unspecified complications Peptic ulcer disease Non Hodgkin's lymphoma Anxiety and depression Hypercholesterolemia Vitamin D deficiency Obesity (BMI 30-39.9) Type 2 diabetes mellitus with hyperglycemia Thrombocytopenia Surgical History Hx of cataract extraction History of esophagogastroduodenoscopy (EGD) H/O colonoscopy H/O lymph node biopsy History of shoulder surgery Family History Father Lung cancer Mother Breast cancer Sister Breast cancer Brother Substance use disorder Sister No problems noted. Son No problems noted. Daughter No problems noted. Social History Household Members: Spouse and Children Housing: House Are you a primary caregiver services home to a significant other at home: No Do you presently have visiting nurse or other home services: No Alcohol intake: never Patient Tobacco Use Status: Never used Tobacco e-Cigarette/Vaping Use: Never Used Second Hand Smoke Exposure: No Advance Directives Date on File: 12/19/21 service: No Current occupational status: retired Cognitive needs: Yes (pricila Grant) Hearing needs: No Vision needs: Yes Questionnaire Thrive Questionnaire Date Thrive assessed: 03/20/23 AIDAN-7 AMB Questionnaire AIDAN-7 Date AIDAN - 7 assessed: 10/21/22 Source: Developed by Drs. Simon Zhou, Latisha Huang, Ayo Rodríguez and colleagues, with an educational skye from [employer] Physical exam (Primary Care) Vital Signs: Last Vital Signs Pulse 55 07/21/23 10:51 BP 160/80 H 07/21/23 10:51 Pulse Ox 98 07/21/23 10:51 Oxygen Delivery Method Room Air 07/21/23 10:51 BMI result Body Mass Index 28.0 Tobacco/Smoking Status: Tobacco use Status Tobacco use date assessed 04/06/23 07/21/23 11:00 Patient Tobacco Use Status Never used Tobacco 07/21/23 11:00 e-Cigarette/Vaping Use Never Used 07/21/23 11:00 Thrive Assessment: Date of Thrive Assessment Date Thrive assessed 03/20/23 07/21/23 11:00 Const General: alert; No acute distress Eyes Conjunctivae: conjunctivae normal Resp Auscultation: clear to auscultation bilaterally Cardio Rate: regular rate Rhythm: regular rhythm GI Inspection: Yes normal to inspection Extrem General: Yes normal to inspection and No edema Assessment and Plan Assessment & Plan (1) Type 2 diabetes mellitus with hyperglycemia: Comment: dx ~ 2014-does not check glucose at home Code(s): E11.65 - Type 2 diabetes mellitus with hyperglycemia Qualifiers: Diabetes mellitus [facility] insulin use: without [facility] use Qualified Code(s): E11.65 - Type 2 diabetes mellitus with hyperglycemia Plan: Decrease the amount of carbohydrate intake, pasta, bread, rice and potatoes are all sugar and that is aside from all the sweet stuff, remember that fruits are good but they are Sweet also. Hemoglobin A1c goal of less than 7.0 patient on glipizide 5 mg once a day only (2) PAF (paroxysmal atrial fibrillation): Comment: Cardioversion 12/04/2021 Code(s): I48.0 - Paroxysmal atrial fibrillation Plan: Continue with anticoagulation and started on amiodarone as per Cardiology planned cardioversion (3) CHF (congestive heart failure): Code(s): I50.9 - Heart failure, unspecified Plan: Continue with diuresis with furosemide 40 mg once a day (4) Hypothyroid: Code(s): E03.9 - Hypothyroidism, unspecified Plan: Continue with thyroid medication (5) LARISSA (obstructive sleep apnea): Comment: PATIENT HAS HISTORY OF OBSTRUCTIVE SLEEP APNEA AND USED TO BE ON CPAP REGULARLY. SINCE THE LAST MONTH HE IS NOT USING CPAP AT ALL AND CLAIMS THAT. HE IS SLEEPING BETTER I THINK DUE TO SIGNIFICANT WEIGHT REDUCTION, HIS LARISSA HAS RESOLVED. ADVISED TO KEEP HIS WEIGHT DOWN. THE WEIGHT HAS ACTUALLY COME DOWN WITH EFFECTIVE DIURESIS. DOES NOT HAVE TO USE. THE CPAP Code(s): G47.33 - Obstructive sleep apnea (adult) (pediatric) Plan: Patient being followed up by Pulmonary and intolerant of the CPAP (6) Essential hypertension: Code(s): I10 - Essential (primary) hypertension Plan: Continue with blood pressure medication. Decrease salt intake and exercise patient is taking metoprolol 100 mg once a day (7) Hypercholesterolemia: Code(s): E78.00 - Pure hypercholesterolemia, unspecified Plan: Avoid fried foods, chicken skin, eggs, butter margarine, pastries and meat. Be it pork or beef they have a lot of cholesterol LDL goal of less than 100 and triglyceride of less than 150 on atorvastatin 40 mg once a day (8) Pterygium: Code(s): H11.009 - Unspecified pterygium of unspecified eye Plan: presently with the present meds and stability, PAtient is in the intermediate risk category. But with the low risk procedure, no further work up needed and may proceed with the contemplated procedure. (9) Rosacea: Code(s): L71.9 - Rosacea, unspecified Plan: cream and antibiotic sent Orders: Orders Free T4 (Free Thyroxine) 3 Months E11.65 - Type 2 diabetes mellitus with hyperglycemia Thyroid Stimulating Hormone 3 Months E11.65 - Type 2 diabetes mellitus with hyperglycemia B Type Natriuretic Peptide 3 Months E11.65 - Type 2 diabetes mellitus with hyperglycemia Phosphorus 3 Months E11.65 - Type 2 diabetes mellitus with hyperglycemia Complete Blood Count Auto Diff 3 Months E11.65 - Type 2 diabetes mellitus with hyperglycemia Comprehensive Met. Panel 3 Months E11.65 - Type 2 diabetes mellitus with hyperglycemia Vitamin B12 and Folate 3 Months E11.65 - Type 2 diabetes mellitus with hyperglycemia Lipid Panel 3 Months E11.65 - Type 2 diabetes mellitus with hyperglycemia, E78.00 - Pure hypercholesterolemia, unspecified Hemoglobin A1c 3 Months E11.65 - Type 2 diabetes mellitus with hyperglycemia Magnesium 3 Months E11.65 - Type 2 diabetes mellitus with hyperglycemia Medications: New doxycycline hyclate 100 mg PO BID 60 caps 0RF L71.9 - Rosacea, unspecified metronidazole 1% 1 appl topical BEDTIME 60 grams 0RF L71.9 - Rosacea, unspecified Coding Level of Care Code Est Pt Level 4 (59384) Diagnoses Type 2 diabetes mellitus with hyperglycemia, without long-term current use of insulin E11.65 Diabetes mellitus [facility] insulin use: without [facility] use PAF (paroxysmal atrial fibrillation) I48.0 CHF (congestive heart failure) I50.9 Hypothyroid E03.9 LARISSA (obstructive sleep apnea) G47.33 Essential hypertension I10 Hypercholesterolemia E78.00 Pterygium H11.009 Rosacea L71.9
== END 2023-07-21 11:37 | disposition home or self-care (01) ==
PROVIDERS: PCP Internal Medicine; Visit Provider Internal Medicine
DX: E11.65 Type 2 diabetes mellitus with hyperglycemia (principal); I48.0 Paroxysmal atrial fibrillation; I11.0 Hypertensive heart disease with heart failure; I50.9 Heart failure, unspecified; H11.009 Unspecified pterygium of unspecified eye; L71.9 Rosacea, unspecified
CPT/HCPCS: 99214

== ENCOUNTER → 2023-08-13 09:55 | Outpatient (REF) | payer MEDICARE, SELFPAY ==
--- NOTE | 2023-08-13 09:58 | HM_ITS ---
Conclusion: 1. Patient was monitored for total period of 3 days 2. Baseline was normal sinus rhythm with average heart of 55 beats per minute 3. Frequent sinus bradycardia noted with 84% of time heart rate below 60 beats per minute with no significant pauses 4. Occasional PACs noted 5. No patient reported events MTDD
== END ==
LOC: HO.CARD 09:55
PROVIDERS: PCP Internal Medicine; Visit Provider Internal Medicine
DX: R00.2 Palpitations (principal); I48.0 Paroxysmal atrial fibrillation
CPT/HCPCS: 93242; 93306

== ENCOUNTER → 2023-08-13 09:58 | Outpatient (BNV) | payer MEDICARE, SELFPAY | PROVIDERS: PCP Internal Medicine; Visit Provider Internal Medicine Cardiovascular Disease | DX: R00.1 Bradycardia, unspecified (principal) | CPT/HCPCS: 93244; 93306 ==

== ENCOUNTER 2023-08-18 09:53 | Outpatient (REF) | payer MEDICARE, SELFPAY ==
[2023-08-18 12:40] LABS: B Type Natriuretic Peptide 271 pg/mL (<100)
[2023-08-18 12:46] LABS: Anion Gap 13 (12-20); Blood Urea Nitrogen 24 mg/dL (9-16); Calcium 9.4 mg/dL (8.4-10.2); Carbon Dioxide 26 mmol/L (22-29); Chloride 103 mmol/L (96-108); Estimated Glomerular Filt Rate 51; Glucose Random 167 mg/dL (60-115); Potassium 4.3 mmol/L (3.3-5.1); Sodium 138 mmol/L (135-145)
== END 2023-08-18 09:54 | disposition home or self-care (01) ==
LOC: HO.LAB 09:53
PROVIDERS: PCP Internal Medicine; Visit Provider Internal Medicine
DX: I11.0 Hypertensive heart disease with heart failure (principal); I50.32 Chronic diastolic (congestive) heart failure; I48.0 Paroxysmal atrial fibrillation; E11.9 Type 2 diabetes mellitus without complications; G47.33 Obstructive sleep apnea (adult) (pediatric)
CPT/HCPCS: 36415; 80048; 83880; 93005; 99212

== ENCOUNTER 2023-08-18 09:53 | Outpatient (AMB) | payer MEDICARE, SELFPAY ==
[2023-08-18 10:10] VITALS: BP 144/62; PULSE 63; BMI 28.2
--- NOTE | 2023-08-18 10:10 | MHC.OFFVIS ---
Intake Vital Signs 08/18/23 10:10 Height 5 ft 5 in Weight 169 lb 12.095 oz BMI 28.2 BP 144/62 H Blood Pressure Location Lt brachial Position Sitting Pulse 63 Intake Visit Reasons: follow up testing/ pt R/S Intake Note: follow up testing Building Construction Contractor Required: No Accompanied by: Spouse Allergies amlodipine Adverse Reaction (Intermediate, Verified 08/18/23 10:11) leg swelling gabapentin Adverse Reaction (Intermediate, Verified 08/18/23 10:11) lethargy lisinopril Adverse Reaction (Intermediate, Verified 08/18/23 10:11) Cough metformin Adverse Reaction (Intermediate, Verified 08/18/23 10:11) lethargy Medication List - Last Reconciled 08/18/23 by Brain Su MD amiodarone 200 mg PO DIRECTED apixaban (Eliquis) 5 mg PO BID ascorbic acid (vitamin C) 250 mg PO DAILY atorvastatin 40 mg PO DAILY cholecalciferol (vitamin D3) (Vitamin D3) 25 mcg PO DAILY doxycycline hyclate 100 mg PO BID escitalopram oxalate 10 mg PO DAILY ferrous sulfate 325 mg PO DAILY finasteride 5 mg PO DAILY 90 days furosemide 40 mg PO DAILY glipizide ER 5 mg PO DAILY levothyroxine 75 mcg PO DAILY@1100 metoprolol succinate ER 100 mg PO DAILY 90 days metronidazole 1% 1 appl topical BEDTIME multivitamin 1 tab PO DAILY nystatin 1 appl See Protocol topical TID 7 days tamsulosin 0.4 mg PO BEDTIME 30 days walker (Ultra-Light Rollator misc) As directed HPI HPI Comments History of Present Illness Details Augustus returns for follow-up all regarding atrial fibrillation and congestive heart failure. Few months back, he was in congestive heart failure suspected to be from atrial fibrillation. He was put on amiodarone and then we plan to cardioversion but he went back to normal by himself. states that he is actually much better off while staying in sinus rhythm. In the past however, when he underwent a cardioversion there was not much of a difference either way. Overall, he is feeling good. No new complaints. No significant shortness of breath or in fact anything else cardiac sounding. [facility] Medical History Bilateral pleural effusion Pneumonia Physical deconditioning CKD (chronic kidney disease) stage 3, GFR 30-59 ml/min (HFpEF) heart failure with preserved ejection fraction Obesity (BMI 30-39.9) LARISSA (obstructive sleep apnea) PAF (paroxysmal atrial fibrillation) CHF (congestive heart failure) Type 2 diabetes mellitus with unspecified complications Peptic ulcer disease Non Hodgkin's lymphoma Anxiety and depression Hypercholesterolemia Vitamin D deficiency Obesity (BMI 30-39.9) Type 2 diabetes mellitus with hyperglycemia Thrombocytopenia Surgical History Hx of cataract extraction History of esophagogastroduodenoscopy (EGD) H/O colonoscopy H/O lymph node biopsy History of shoulder surgery Family History Father Lung cancer Mother Breast cancer Sister Breast cancer Brother Substance use disorder Sister No problems noted. Son No problems noted. Daughter No problems noted. Social History Household Members: Spouse and Children Housing: House Are you a primary healthcare receptionist to a significant other at home: No Do you presently have visiting nurse or other home services: No Alcohol intake: never Patient Tobacco Use Status: Never used Tobacco e-Cigarette/Vaping Use: Never Used Second Hand Smoke Exposure: No Advance Directives Date on File: 12/19/21 service: No Current occupational status: retired Cognitive needs: Yes (Walker, cane) Hearing needs: No Vision needs: Yes Review of Systems Const Denies weakness ENT Denies dizziness Card Denies chest pain, Denies chest pain with activity, Denies syncope, Denies rapid heart rate, Denies pedal edema, Denies edema, Denies leg edema, Denies lightheadedness, Denies palpitations, Reports dyspnea, Denies dyspnea on exertion and Denies orthopnea Resp Denies cough, Reports dyspnea and Denies dyspnea on exertion GI Denies hematochezia and Denies change in stool character Musc Denies abnormal gait, Denies muscle cramps, Denies muscle weakness, Denies numbness, Denies radiating pain into limb and Denies tingling Neuro Denies abnormal gait, Denies dizziness, Denies syncope, Denies numbness, Denies tingling and Denies weakness Endo Denies palpitations Physical Exam Vital Signs: Last Vital Signs Pulse 63 08/18/23 10:10 BP 144/62 H 08/18/23 10:10 BMI result Body Mass Index 28.2 Const General: comfortable and no acute distress Orientation/consciousness: patient oriented x3 HEENT Other: Unremarkable Head: Yes normal to inspection Neck Neck: Yes normal visual inspection Chest Chest palpation & inspection: normal inspection of the chest Resp Auscultation: clear to auscultation bilaterally Cardio Palpation: normal PMI Heart sounds: S1 normal heart sound present, S2 normal heart sound present, no gallops, no murmurs and no rubs GI Palpation (GI): Soft to palpation Back/Spine/Pelvis Other: unremarkable Skin General skin exam: no rashes or lesions noted Neuro General: patient oriented x3 Extrem General: Yes normal to inspection Psych Mental Status: mental status grossly normal Office Procedures EKG Details: EKG with sinus rhythm at 63/Min; [place] prolongation to 220 millisecond; normal corrected QT. No significant ST-T changes. [id number], Complete Assessment & Plan Assessment & Plan (1) PAF (paroxysmal atrial fibrillation): Comment: Cardioversion 12/04/2021 Code(s): I48.0 - Paroxysmal atrial fibrillation Plan: Status post cardioversion in 2021 but he atrial fibrillation recurred few months back but resolved with amiodarone before cardioversion. We discussed about thyroid effects from amiodarone. However, due to risk of precipitating congestive heart failure if he goes back into atrial fibrillation, we may continue. understands the rationale. Otherwise, continue anticoagulation. (2) Chronic heart failure with preserved ejection fraction (HFpEF): Code(s): I50.32 - Chronic diastolic (congestive) heart failure Plan: Renal function did go up last time. Needs to be repeated. Also, on echocardiogram IVC size was small. Hence could be just dehydrated. Can hold off Lasix to the lab results available. (3) Essential hypertension: Code(s): I10 - Essential (primary) hypertension Plan: Borderline blood pressure. No changes made. (4) Type 2 diabetes mellitus with unspecified complications: Code(s): E11.8 - Type 2 diabetes mellitus with unspecified complications Plan: On glipizide. (5) LARISSA (obstructive sleep apnea): Comment: PATIENT HAS HISTORY OF OBSTRUCTIVE SLEEP APNEA AND USED TO BE ON CPAP REGULARLY. SINCE THE LAST MONTH HE IS NOT USING CPAP AT ALL AND CLAIMS THAT. HE IS SLEEPING BETTER I THINK DUE TO SIGNIFICANT WEIGHT REDUCTION, HIS LARISSA HAS RESOLVED. ADVISED TO KEEP HIS WEIGHT DOWN. THE WEIGHT HAS ACTUALLY COME DOWN WITH EFFECTIVE DIURESIS. DOES NOT HAVE TO USE. THE CPAP Code(s): G47.33 - Obstructive sleep apnea (adult) (pediatric) Plan: states that patient lost lot of weight and after that he did have to use CPAP as recommended by Pulmonary. Orders: Orders Basic Metabolic Panel Today I50.9 - Heart failure, unspecified B Type Natriuretic Peptide Today I50.9 - Heart failure, unspecified Coding Level of Care Code Est Pt Level 4 (16601) Diagnoses PAF (paroxysmal atrial fibrillation) I48.0 Chronic heart failure with preserved ejection fraction (HFpEF) I50.32 Essential hypertension I10 Type 2 diabetes mellitus with unspecified complications E11.8 LARISSA (obstructive sleep apnea) G47.33 CPT Codes EKG - CPT: [id number], Complete ([id number])
== END 2023-08-18 10:46 | disposition home or self-care (01) ==
PROVIDERS: PCP Internal Medicine; Visit Provider Internal Medicine
DX: I48.0 Paroxysmal atrial fibrillation (principal); I50.32 Chronic diastolic (congestive) heart failure; I10 Essential (primary) hypertension; E11.8 Type 2 diabetes mellitus with unspecified complications; G47.33 Obstructive sleep apnea (adult) (pediatric)
CPT/HCPCS: 93010; 99214

== ENCOUNTER 2023-09-23 10:46 | Outpatient (REF) | payer MEDICARE, SELFPAY ==
--- NOTE | ~2023-09-23 | US_ITS ---
EXAMINATION: US PELVIS LIMITED (BLADDER) CLINICAL INFORMATION: Benign prostatic hyperplasia with lower urinary tract symptoms. COMPARISON: Pelvic CT 01/22/2023. TECHNIQUE: Real-time imaging of the bladder. FINDINGS: BLADDER: Well distended and normal. Bilateral ureteral jets are demonstrated. Prevoid bladder volume is 220 mL. Postvoid bladder volume is 7 mL. OTHER: Prostate dimensions are 3.8 x 3.4 x 4.4 cm, volume 29.4 mL. US/US bladder IMPRESSION: 1. The urinary bladder is unremarkable. 2. There is borderline prostatomegaly.
== END 2023-09-23 10:47 | disposition home or self-care (01) ==
LOC: HO.US 10:46
PROVIDERS: PCP Internal Medicine; Visit Provider Urology
DX: N40.1 Benign prostatic hyperplasia with lower urinary tract symptoms (principal); R33.9 Retention of urine, unspecified
CPT/HCPCS: 76857

== ENCOUNTER 2023-10-05 12:41 | Outpatient (AMB) | payer MEDICARE, SELFPAY ==
--- NOTE | 2023-10-05 12:47 | MHC.OFFVIS ---
Intake Intake Visit Reasons: 3m Cysto/Bladder US(VM To Confirmed) Intake Note: Patient is Present for Cystoscopy Urology Med: Finasteride, Tamsulosin Antibiotic Allergy: None Blood Thinner: Eliquis URO- G Disposable Cystoscope lot: [id number] exp: 12/20/24 Allergies amlodipine Adverse Reaction (Intermediate, Verified 10/05/23 13:01) leg swelling gabapentin Adverse Reaction (Intermediate, Verified 10/05/23 13:01) lethargy lisinopril Adverse Reaction (Intermediate, Verified 10/05/23 13:01) Cough metformin Adverse Reaction (Intermediate, Verified 10/05/23 13:01) lethargy HPI HPI Comments History of Present Illness Details Augustus is a very pleasant male. He is a patient of Dr. Peters. He seen for the following urologic conditions - urinary retention - erectile dysfunction On combination finasteride and tamsulosin Bladder ultrasound low residual, 30 cc gland May alter timing for Lasix medications so can sleep during the night Secondary issue erectile dysfunction. Discussed penile vacuum pumps Cystoscopy - higher bladder neck, short prostate grade 2 trabeculation Urinary retention Prior episode seen emergency room Rincon catheter placed for 1400 cc Had history of progressive weakness of stream Current therapy finasteride plus tamsulosin PFSH Medical History Bilateral pleural effusion Pneumonia Physical deconditioning CKD (chronic kidney disease) stage 3, GFR 30-59 ml/min (HFpEF) heart failure with preserved ejection fraction Obesity (BMI 30-39.9) LARISSA (obstructive sleep apnea) PAF (paroxysmal atrial fibrillation) CHF (congestive heart failure) Type 2 diabetes mellitus with unspecified complications Peptic ulcer disease Non Hodgkin's lymphoma Anxiety and depression Hypercholesterolemia Vitamin D deficiency Obesity (BMI 30-39.9) Type 2 diabetes mellitus with hyperglycemia Thrombocytopenia Surgical History Hx of cataract extraction History of esophagogastroduodenoscopy (EGD) H/O colonoscopy H/O lymph node biopsy History of shoulder surgery Family History Father Lung cancer Mother Breast cancer Sister Breast cancer Brother Substance use disorder Sister No problems noted. Son No problems noted. Daughter No problems noted. Social History Household Members: Spouse and Children Housing: House Are you a primary career discovery teacher to a significant other at home: No Do you presently have visiting nurse or other home services: No Alcohol intake: never Patient Tobacco Use Status: Never used Tobacco e-Cigarette/Vaping Use: Never Used Second Hand Smoke Exposure: No Advance Directives Date on File: 12/19/21 service: No Current occupational status: retired Cognitive needs: Yes (Walker, cane) Hearing needs: No Vision needs: Yes Review of Systems Const Denies chills and Denies fever(s) Card Reports no additional complaints and Denies syncope Resp Denies cough GI Denies abdominal pain and Denies heartburn Reports as per HPI and Denies change in libido Neuro Denies syncope Psych Denies change in libido Endo Denies change in libido Physical Exam Const General: cooperative, healthy appearing, comfortable and no acute distress Orientation/consciousness: patient oriented x3 HEENT Face and sinus: Yes normal facial exam Mouth: moist mucous membranes Neck Neck: Yes normal visual inspection, Yes full ROM and Yes trachea midline Chest Chest palpation & inspection: normal inspection of the chest Resp Effort & Inspection: normal respiratory effort, able to speak in complete sentences and no respiratory distress GI Inspection: Yes normal to inspection Back/Spine/Pelvis Cervical Spine: normal cervical lordosis Thoracic/Lumbar Spine: thoracic and lumbar spine normal to inspection Skin General skin exam: no rashes or lesions noted Neuro General: patient oriented x3, gait normal, tone normal and moves all extremities Extrem General: Yes normal to inspection and Yes capillary refill normal Office Procedures Cystoscopy Consent Discussed risk and benefit or proposed procedure with the patient. Information consent for procedure given to the patient. Discussed technical aspects, risks, benefits and alternatives in full. Addressed all of the patient's questions and concerns regarding the procedure. The patient demonstrated knowledge and understanding. They wish to proceed with this procedure. Preparation The patient was prepped in the usual manner. A animation artist was present and in the room. Genitalia was prepped with betadine solution in a sterile manner. Lidocaine Jelly 2% was placed into the urethra and 16Fr flexible Olympus cystoscope was inserted into the meatus after adequate lubrication. Procedure Meatus circumcised Urethra anterior and posterior urethra normal Prostatic Urethra high bladder neck Bladder examination with retroflexion of cystoscope Bladder Orifices normal shape and position Bladder Capacity median Trabeculations grade 2 Cellule Formation - Diverticulum Formation - Mucosal Erythema - Bladder Tumor - [id number] DISPOSABLE SCOPE URO-G FLEXIBLE SCOPE Procedure code (CPT) selection complete Office Meds lidocaine HCl 2 % mucosal jelly in applicator Performing Provider: Satinder Perez MD Performing Location: [facility] Administered by: Mata Rojo LPN on 10/05/23 13:12 Dose Route Admin Location Dispensed Lot Number Expiration Date NDC Charging Machine Operator 10 mL intra-urethral 10 mL nitrofurantoin monohydrate/macrocrystals 100 mg capsule Performing Provider: Satinder Perez MD Performing Location: [facility] Administered by: Mata Rojo LPN on 10/05/23 13:12 Dose Route Admin Location Dispensed Lot Number Expiration Date NDC Charging Machine Operator 100 mg PO 1 cap naproxen 500 mg tablet Performing Provider: Satinder Perez MD Performing Location: [facility] Administered by: Mata Rojo LPN on 10/05/23 13:12 Dose Route Admin Location Dispensed Lot Number Expiration Date NDC Charging Machine Operator 500 mg PO 1 tab Assessment & Plan Assessment & Plan (1) Urinary retention: Code(s): R33.9 - Retention of urine, unspecified (2) Weak urinary stream: Code(s): R39.12 - Poor urinary stream (3) Incomplete emptying of bladder due to benign prostatic hyperplasia: Code(s): N40.1 - Benign prostatic hyperplasia with lower urinary tract symptoms; R33.9 - Retention of urine, unspecified Plan Six-month follow-up Orders: Orders AMB Cystoscopy 10/05/23 R33.9 - Retention of urine, unspecified AMB Urinalysis Automated 10/05/23 Z13.9 - Encounter for screening, unspecified Patient Instructions: Imaging studies, laboratory and physical exam results were discussed and reviewed in detail. No major barriers to patient understanding were identified. An opportunity to ask questions regarding the treatment plan was provided. All questions were answered. The patient expressed understanding and agreement with the above treatment plan. The patient is aware they should contact our office by phone for worsening of their current condition or the appearance of new urologic symptoms. Compliance is encouraged with any medications and followup testing that is ordered. It is a privilege to participate in the urologic care of your patient. If you have any questions or concerns regarding treatment for the above conditions, or other urologic issues, please do not hesitate to contact me. The office telephone contact is [phone]. This note is constructed using voice recognition software. While every effort has been made to ensure accuracy pottery decoration designer errors may have been included. Yours sincerely, Dr Satinder Perez MD, [facility] - Urology Providers of Expert, Compassionate Care for the Genitourinary System Coding Level of Care Code Est Pt Level 3 (65726) Diagnoses Urinary retention R33.9 Weak urinary stream R39.12 Incomplete emptying of bladder due to benign prostatic hyperplasia N40.1; R33.9 CPT Codes Cystoscopy - CPT: 42106-[id number] ([id number])
== END 2023-10-05 13:34 | disposition home or self-care (01) ==
PROVIDERS: PCP Internal Medicine; Visit Provider Urology
DX: N40.1 Benign prostatic hyperplasia with lower urinary tract symptoms (principal); R33.9 Retention of urine, unspecified; R39.12 Poor urinary stream
CPT/HCPCS: 52000; 99213

== ENCOUNTER → 2023-10-05 12:41 | Outpatient (BNVA) | payer MEDICARE, SELFPAY | PROVIDERS: PCP Internal Medicine; Visit Provider Urology | DX: N40.1 Benign prostatic hyperplasia with lower urinary tract symptoms (principal); R33.9 Retention of urine, unspecified; R39.12 Poor urinary stream | CPT/HCPCS: 52000; 99212 ==

== ENCOUNTER 2023-10-18 09:06 | Outpatient (REF) | payer MEDICARE, SELFPAY ==
[2023-10-18 09:19] LABS: MANUAL DIFF FLAG NO
[2023-10-18 09:37] LABS: Basophils Percent Auto 0.6 % (0-2); Eosinophils Absolute Auto 0.2 X10*3/uL (0.0-0.4); Eosinophils Percent Auto 3.4 % (0-4); Hematocrit 36.4 % (42.0-52.0); Hemoglobin 11.3 g/dl (14.0-18.0); Imm Gran Abs Auto 0.03 X10*3/uL (0.00-0.03); Imm Gran Pct Auto 0.6 % (0.0-0.4); Lymphocytes Absolute Auto 1.2 X10*3/uL (1.2-4.9); Lymphocytes Percent Auto 23.4 % (20-40); Mean Corpuscular Hemoglobin 24.7 pg (27.0-33.0); Mean Corpuscular Volume 79.6 fL (80.0-98.0); Mean Platelet Volume 9.5 fL (9.4-12.4); Monocytes Absolute Auto 0.5 X10*3/uL (0.1-1.2); Monocytes Percent Auto 10.3 % (2-11); Neutrophils Absolute Auto 3.3 x10*3/uL (2.0-8.3); Neutrophils Percent Auto 61.7 % (45-73); Platelet Count 181 X10*3/uL (160-400); Red Blood Count 4.57 X10*6/uL (4.60-5.80); Red Cell Distribution Width 18.2 % (11.0-16.0); White Blood Count 5.3 X10*3/uL (4.8-10.8)
[2023-10-18 09:38] LABS: Estimated Average Glucose 91 mg/dL; Hemoglobin A1c % 4.8 % (<6.0)
[2023-10-18 09:58] LABS: B Type Natriuretic Peptide 255 pg/mL (<100)
[2023-10-18 10:02] LABS: Alanine Aminotransferase 29 U/L (0-40); Alkaline Phosphatase 123 U/L (39-117); Anion Gap 12 (12-20); Aspartate Amino Transferase 30 U/L (5-37); Bilirubin Total 0.6 mg/dL (0.0-1.0); Blood Urea Nitrogen 28 mg/dL (9-16); Calcium 9.5 mg/dL (8.4-10.2); Carbon Dioxide 31 mmol/L (22-29); Chloride 103 mmol/L (96-108); Cholesterol 128 mg/dL (<200); Estimated Glomerular Filt Rate 40; Glucose Random 106 mg/dL (60-115); HDL Cholesterol 33 mg/dL (>40); LDL Cholesterol Calculated 72 mg/dL (<100); Magnesium 2.2 mg/dL (1.6-2.6); Phosphorus 3.3 mg/dL (2.7-4.5); Potassium 4.5 mmol/L (3.3-5.1); Sodium 141 mmol/L (135-145); Total Protein 7.3 g/dL (6.5-8.0); Triglycerides 115 mg/dL (<150)
[2023-10-18 10:20] LABS: Free T4 (Free Thyroxine) 1.03 ng/dL (0.71-1.85)
[2023-10-18 10:30] LABS: Folate 12.6 ng/mL (> or = 4.0); Vitamin B12 511 pg/mL (200-900)
== END 2023-10-18 09:07 | disposition home or self-care (01) ==
LOC: HO.LAB 09:06
PROVIDERS: PCP Internal Medicine; Visit Provider Internal Medicine
DX: E11.65 Type 2 diabetes mellitus with hyperglycemia (principal); E78.00 Pure hypercholesterolemia, unspecified
CPT/HCPCS: 36415; 80053; 80061; 82607; 82746; 83036; 83735; 83880; 84100; 84439; 84443; 85025

== ENCOUNTER 2023-10-25 10:50 | Outpatient (AMB) | payer MEDICARE, SELFPAY ==
--- NOTE | 2023-10-25 11:37 | AM.OFFWIN_ITS ---
Intake Vital Signs 10/25/23 11:40 10/25/23 12:53 Height 5 ft 5 in 5 ft 5 in Weight 178 lb BMI 29.6 BP 110/60 Blood Pressure Location Lt brachial Position Sitting Pulse 64 Pulse Source Pulse Oximeter Temp 97.6 F Temp Source Temporal Artery Scan Pulse Oximetry (%) 93 Oxygen Delivery Method Room Air Intake Visit Reasons: EP Cough, Fever, Diff Breathing Intake Note: pt is here today for cough fever diff breathing started 6 days ago Patient Tobacco Use Status: Never used Tobacco Allergies amlodipine Adverse Reaction (Intermediate, Verified 10/25/23 11:43) leg swelling gabapentin Adverse Reaction (Intermediate, Verified 10/25/23 11:43) lethargy lisinopril Adverse Reaction (Intermediate, Verified 10/25/23 11:43) Cough metformin Adverse Reaction (Intermediate, Verified 10/25/23 11:43) lethargy Do you need a note to return to daycare/school/sports/work: No HPI HPI Comments History of Present Illness Details This is a 77-year-old male with a past medical history of hypertension, obstructive sleep apnea, diabetes, atrial fibrillation currently maintained on Eliquis and CHF presenting for evaluation of a cough and chest congestion that he has had since Wednesday. Patient states there are other members of his household have similar symptoms. He denies having any overt fevers, chills, ear pain, sore throat, chest pain, lower extremity edema or orthopnea. Patient has not taken any medication for treatment of his symptoms. Patient reports that he has been vaccinated for both COVID-19 and influenza this season. [facility] Medical History Bilateral pleural effusion Pneumonia Physical deconditioning CKD (chronic kidney disease) stage 3, GFR 30-59 ml/min (HFpEF) heart failure with preserved ejection fraction Obesity (BMI 30-39.9) LARISSA (obstructive sleep apnea) PAF (paroxysmal atrial fibrillation) CHF (congestive heart failure) Type 2 diabetes mellitus with unspecified complications Peptic ulcer disease Non Hodgkin's lymphoma Anxiety and depression Hypercholesterolemia Vitamin D deficiency Obesity (BMI 30-39.9) Type 2 diabetes mellitus with hyperglycemia Thrombocytopenia Surgical History Hx of cataract extraction History of esophagogastroduodenoscopy (EGD) H/O colonoscopy H/O lymph node biopsy History of shoulder surgery Family History Father Lung cancer Mother Breast cancer Sister Breast cancer Brother Substance use disorder Sister No problems noted. Son No problems noted. Daughter No problems noted. Social History Household Members: Spouse and Children Housing: House Are you a primary direct care provider to a significant other at home: No Do you presently have visiting nurse or other home services: No Alcohol intake: never Patient Tobacco Use Status: Never used Tobacco e-Cigarette/Vaping Use: Never Used Second Hand Smoke Exposure: No Advance Directives Date on File: 12/19/21 service: No Current occupational status: retired Cognitive needs: Yes (Walker, cane) Hearing needs: No Vision needs: Yes Review of Systems Const All systems reviewed & are unremarkable except as noted in HPI and below Denies chills, Reports fatigue, Denies fever(s) and Reports malaise Eyes Reports no additional complaints ENT Reports no additional complaints Card Reports no additional complaints, Denies chest pain, Denies pedal edema, Denies leg edema and Reports dyspnea Resp Reports chest congestion, Reports cough, Denies hemoptysis and Reports dyspnea GI Reports no additional complaints Reports no additional complaints Skin/Breast Reports system reviewed and no additional complaints, except as documented Psych Reports no additional complaints Endo Reports fatigue Physical Exam Vital Signs: Last Vital Signs Temp 97.6 F 10/25/23 11:40 Pulse 64 10/25/23 11:40 BP 110/60 10/25/23 11:40 Pulse Ox 93 10/25/23 11:40 Oxygen Delivery Method Room Air 10/25/23 11:40 BMI result Body Mass Index 29.6 Afebrile, oxygenation is 93% on room air. Const General: cooperative, comfortable and no acute distress; No ill appearing Nutritional Appearance: average body habitus Orientation/consciousness: patient oriented x3 Limitations: no limitations HEENT Head: Yes normal to inspection Ears: hearing grossly normal bilaterally, external ears normal, TM's normal bilaterally and EAC's normal General nose exam: Normal external nose present Mouth: Normal oral and palatal mucosa present and moist mucous membranes Teeth and gingiva: dentition normal Throat: Yes posterior oropharynx normal Eyes Conjunctivae: conjunctivae normal Sclerae: sclerae normal EOM: EOMs intact bilaterally Resp Effort & Inspection: able to speak in complete sentences, Actively coughing, respiratory effort not decreased, no respiratory distress and not tachypneic Auscultation: rhonchi right upper, left lower and right lower and wheezes Cardio Rate: regular rate Rhythm: regular rhythm Skin General skin exam: no rashes or lesions noted Neuro General: patient oriented x3 Psych Appearance: grossly normal Mental Status: mental status grossly normal Insight: Good insight present (Psych) Judgement: Good judgement present (Psych) Results Reviewed Results Reviewed: chest x.ray Assessment & Plan Assessment & Plan (1) Pneumonia: Code(s): J18.9 - Pneumonia, unspecified organism Qualifiers: Pneumonia type: due to unspecified organism Plan: Azithromycin/Cefpodoxime dual therapy for treatment of CAP. Patient to follow- up with PCP in 7-10 days. Testing for COVID/influenza/RSV pending. Orders: Orders SARS-CoV2/FLU/RSV 10/25/23 R05.9 - Cough, unspecified XR chest 2V 10/25/23 R05.9 - Cough, unspecified Medications: New cefpodoxime must administer with a meal/food 200 mg PO BID 14 tabs 0RF azithromycin For 250 mg dose pack: take 500 mg today (day 1), then 250 mg for 4 days (days 2-5) PO 6 tabs 0RF Coding Level of Care Code Est Pt Level 4 (87685) Diagnoses Pneumonia J18.9 Pneumonia type: due to unspecified organism Time Spent (min) 35
[2023-10-25 11:40] VITALS: BP 110/60; PULSE 64; TEMP 36.4; O2SAT 93; BMI 29.6
== END 2023-10-25 15:09 | disposition home or self-care (01) ==
PROVIDERS: PCP Internal Medicine; Visit Provider Physician Assistant
DX: J18.9 Pneumonia, unspecified organism (principal)
CPT/HCPCS: 99214

== ENCOUNTER 2023-10-25 12:29 | Outpatient (REF) | payer MEDICARE, SELFPAY ==
--- NOTE | ~2023-10-25 | XR_ITS ---
EXAMINATION: XR CHEST CLINICAL INFORMATION: Cough unspecified. COMPARISON: 2022 TECHNIQUE: 2 views of the chest were obtained. FINDINGS: There is no gross pneumothorax. Heart size within normal limits. Stable cardiomediastinal silhouette. Lung volumes are low. Degenerative changes in the thoracic spine. Redemonstration of cephalization of the vasculature with overall increased prominent interstitial markings. Increased patchy opacities in the mid to lower lungs, left greater than right. XR/XR chest 2V IMPRESSION: Increased patchy opacities in the mid to lower lungs, left greater than right. This study was presented today October 25, 2023 for interpretation. Stat results provided at this time as requested by referring provider.
[2023-10-25 17:40] LABS: Influenza A PCR NEGATIVE (Negative); Influenza B PCR NEGATIVE (Negative); Resp Syncy Virus RNA Qual PCR NEGATIVE (Negative); SARS COV2 PCR INHOUSE POSITIVE (Negative)
== END 2023-10-25 12:30 | disposition home or self-care (01) ==
LOC: HO.HMGCX 12:29
PROVIDERS: PCP Internal Medicine; Visit Provider Physician Assistant
DX: R05.9 Cough, unspecified (principal); Z11.52 Encounter for screening for COVID-19; Z20.828 Contact with and (suspected) exposure to other viral communicable diseases
CPT/HCPCS: 0241U; 71046

== ENCOUNTER 2023-11-09 09:51 | Outpatient (AMB) | payer MEDICARE, SELFPAY ==
[2023-11-09 10:00] VITALS: BP 120/62; PULSE 56; O2SAT 97; BMI 27.7
--- NOTE | 2023-11-09 10:00 | A.OFFVIS_ITS ---
Intake Vital Signs 11/09/23 10:00 Height 5 ft 5 in Weight 166 lb 7.184 oz BMI 27.7 BP 120/62 Blood Pressure Location Lt brachial Position Sitting Pulse 56 Pulse Source Pulse Oximeter Pulse Oximetry (%) 97 Oxygen Delivery Method Room Air Intake Visit Reasons: dyspnea Intake Note: pt is here for follow and states he had covid, beginning of October, some couging still left, fatigue, and he always has post nasal drip. Director Of Content And Programming Required: No Allergies amlodipine Adverse Reaction (Intermediate, Verified 11/09/23 10:23) leg swelling gabapentin Adverse Reaction (Intermediate, Verified 11/09/23 10:23) lethargy lisinopril Adverse Reaction (Intermediate, Verified 11/09/23 10:23) Cough metformin Adverse Reaction (Intermediate, Verified 11/09/23 10:23) lethargy Medication List - Last Reconciled 11/09/23 by Caitlin Mcduffie MD amiodarone 200 mg PO DAILY apixaban (Eliquis) 5 mg PO BID ascorbic acid (vitamin C) 250 mg PO DAILY atorvastatin 40 mg PO DAILY cholecalciferol (vitamin D3) (Vitamin D3) 25 mcg PO DAILY escitalopram oxalate 10 mg PO DAILY ferrous sulfate 325 mg PO DAILY finasteride 5 mg PO DAILY 90 days furosemide 40 mg PO DAILY glipizide ER 5 mg PO DAILY levothyroxine 88 mcg PO DAILY@1100 metoprolol succinate ER 100 mg PO DAILY 90 days metronidazole 1% 1 appl topical BEDTIME multivitamin 1 tab PO DAILY nystatin 1 appl See Protocol topical TID 7 days tamsulosin 0.4 mg PO BEDTIME 90 days walker (Ultra-Light Rollator [facility]) As directed Do you need a note to return to daycare/school/sports/work: No HPI dyspnea HPI Details Augustus is almost 78 years old, and he is doing well. He has very little shortness of breath on walking around. . However he walks slow He had COVID infection 1 month ago and took care of it at home, did not have to go to the hospital. Recovered well but has some residual weakness. He does not need to use any bronchodilator inhaler, as he denies any. Wheezing or bouts of cough He has past history of sleep apnea but had is given up using the CPAP since last year, He claims that he sleeps good. He has lost some weight probably due to diuresis, and that has helped. [facility] Medical History Bilateral pleural effusion Pneumonia Physical deconditioning CKD (chronic kidney disease) stage 3, GFR 30-59 ml/min (HFpEF) heart failure with preserved ejection fraction Obesity (BMI 30-39.9) LARISSA (obstructive sleep apnea) PAF (paroxysmal atrial fibrillation) CHF (congestive heart failure) Type 2 diabetes mellitus with unspecified complications Peptic ulcer disease Non Hodgkin's lymphoma Anxiety and depression Hypercholesterolemia Vitamin D deficiency Obesity (BMI 30-39.9) Type 2 diabetes mellitus with hyperglycemia Thrombocytopenia Surgical History Hx of cataract extraction History of esophagogastroduodenoscopy (EGD) H/O colonoscopy H/O lymph node biopsy History of shoulder surgery Family History Father Lung cancer Mother Breast cancer Sister Breast cancer Brother Substance use disorder Sister No problems noted. Son No problems noted. Daughter No problems noted. Social History Household Members: Spouse and Children Housing: House Are you a primary manager critical care to a significant other at home: No Do you presently have visiting nurse or other home services: No Alcohol intake: never Patient Tobacco Use Status: Never used Tobacco e-Cigarette/Vaping Use: Never Used Second Hand Smoke Exposure: No Advance Directives Date on File: 12/19/21 service: No Current occupational status: retired Cognitive needs: Yes (Walker, cane) Hearing needs: No Vision needs: Yes Review of Systems Const All systems reviewed & are unremarkable except as noted in HPI and below Reports snoring Eyes Reports no additional complaints ENT Reports no additional complaints Card Reports irregular heart rhythm and Reports dyspnea on exertion Resp Denies cough, Reports dyspnea on exertion, Reports snoring and Denies wheezing GI Reports no additional complaints Reports nocturia Musc Reports no additional complaints Skin/Breast Reports system reviewed and no additional complaints, except as documented Neuro Reports no additional complaints Psych Reports no additional complaints Aller/Immun Denies wheezing Physical Exam Vital Signs: Last Vital Signs Pulse 56 11/09/23 10:00 BP 120/62 11/09/23 10:00 Pulse Ox 97 04/02/24 10:00 Oxygen Delivery Method Room Air 11/09/23 10:00 BMI result Body Mass Index 27.7 Has a round face. Narrow oropharynx, Mallampati class 4. Neck size 16-1/2 inch. Const General: comfortable, no acute distress, alert and awake Orientation/consciousness: patient oriented x3 HEENT Head: Yes normal to inspection General nose exam: No nasal polyps present and No nasal discharge present Face and sinus: Yes sinuses nontender Mouth: oropharynx abnormals (Narrow and crowded Mallampati class 4) Throat: Yes posterior oropharynx normal Eyes General: appearance normal, both eyes and all related structures Neck Neck: Yes normal visual inspection, Yes no lymphadenopathy, Yes trachea midline, Yes no JVD and Yes other (Neck circumference 16-1/2 inch) Thyroid: Thyroid normal Chest Chest palpation & inspection: normal inspection of the chest, normal palpation of entire chest wall and no tenderness Resp Other: Percussion note resonant, breath sounds are slightly distant. No wheezes or rhonchi are heard. Cardio Palpation: normal PMI Rate: regular rate Rhythm: regular rhythm Heart sounds: no gallops and no murmurs GI Palpation (GI): Soft to palpation, nontender, No hepatosplenomegaly present, no masses and Other GI palpation findings present (Abdomen is moderately obese and protuberant) Auscultation: normal bowel sounds Back/Spine/Pelvis Thoracic/Lumbar Spine: thoracic and lumbar spine normal to inspection Skin General skin exam: no rashes or lesions noted Neuro General: patient oriented x3 and no focal motor deficits Cranial nerves: Yes CN's II-XII intact bilaterally Extrem General: Yes normal to inspection, Yes no clubbing, cyanosis or edema and Yes no calf tenderness Psych Appearance: grossly normal and well kempt Speech and movement: Normal speech and movement present Assessment & Plan Assessment & Plan (1) LARISSA (obstructive sleep apnea): Comment: PATIENT HAS HISTORY OF OBSTRUCTIVE SLEEP APNEA AND USED TO BE ON CPAP REGULARLY. SINCE THE LAST YEAR HE HAS NOT USED CPAP AT ALL AND CLAIMS THAT HE IS SLEEPING BETTER. I THINK DUE TO SIGNIFICANT WEIGHT REDUCTION, HIS LARISSA HAS RESOLVED. Code(s): G47.33 - Obstructive sleep apnea (adult) (pediatric) Plan: ADVISED TO KEEP HIS WEIGHT DOWN. THE WEIGHT HAS ACTUALLY COME DOWN WITH EFFECTIVE DIURESIS. DOES NOT HAVE TO USE. THE CPAP (2) Restrictive lung disease: Comment: PULMONARY FUNCTION TEST SHOWS MODERATELY SEVERE RESTRICTIVE PULMONARY DISORDER, THIS WAS MAINLY DUE TO HIS OBESITY AND CHF. WHICH HAS IMPROVED SIGNIFICANTLY Code(s): J98.4 - Other disorders of lung Plan: ADVISED TO KEEP ON DOING DEEP BREATHING EXERCISES. HE DOES HAVE INCENTIVE SPIROMETRY DEVICE AT HOME. (3) SOB (shortness of breath) on exertion: Comment: DYSPNEA ON EXERTION IS EXPECTED DUE TO HIS RESTRICTIVE LUNG DISORDER AND ASSOCIATED CARDIAC ISSUES. ANYWAY IT IS NOT SIGNIFICANT AT THIS TIME. Code(s): R06.02 - Shortness of breath Plan: ABOVE Coding Level of Care Code Est Pt Level 3 (19146) Diagnoses LARISSA (obstructive sleep apnea) G47.33 Restrictive lung disease J98.4 SOB (shortness of breath) on exertion R06.02
== END 2023-11-09 10:31 | disposition home or self-care (01) ==
PROVIDERS: PCP Internal Medicine; Visit Provider Internal Medicine
DX: G47.33 Obstructive sleep apnea (adult) (pediatric) (principal); J98.4 Other disorders of lung; R06.02 Shortness of breath
CPT/HCPCS: 99213

== ENCOUNTER → 2023-11-09 09:51 | Outpatient (BNVA) | payer MEDICARE, SELFPAY | PROVIDERS: PCP Internal Medicine; Visit Provider Internal Medicine | DX: J98.4 Other disorders of lung (principal); G47.33 Obstructive sleep apnea (adult) (pediatric); R06.02 Shortness of breath | CPT/HCPCS: 99212 ==

== ENCOUNTER 2023-12-14 14:14 | Outpatient (AMB) | payer MEDICARE, SELFPAY ==
--- NOTE | 2023-12-14 14:29 | MHC.PC.OV ---
Vital Signs 12/14/23 14:33 12/14/23 14:59 Height 5 ft 5 in Weight 171 lb BMI 28.5 BP 158/92 H 144/90 H Blood Pressure Location Lt brachial Lt brachial Position Sitting Sitting Pulse 58 Pulse Source Pulse Oximeter Oxygen Delivery Method Room Air Intake Visit Reasons: Follow up - see comments Allergies amlodipine Adverse Reaction (Intermediate, Verified 12/14/23 14:34) leg swelling gabapentin Adverse Reaction (Intermediate, Verified 12/14/23 14:34) lethargy lisinopril Adverse Reaction (Intermediate, Verified 12/14/23 14:34) Cough metformin Adverse Reaction (Intermediate, Verified 12/14/23 14:34) lethargy Tobacco use date assessed: 12/14/23 Fall risk assessment: No Falls in past year Last assessed Fall Risk: 12/14/23 Dental Screening Dental Screen Date: 12/14/23 Did you have a dental visit in the last 12 months?: Yes Did you have a dental problem in the last 6 months where you did not have access to dental care?: No Was dental information given to patient?: Patient has dentist HPI Follow up - see comments HPI Details 78-year-old overweight male with diabetes mellitus atrial fibrillation congestive heart failure hypothyroidism obstructive sleep apnea hypertension and hypercholesterolemia last seen in July 2023. Patient has seen Pulmonary in November 2023 obstructive sleep apnea due to the significant weight reduction most likely resolved? Patient was seen by Pulmonary and workup of PFT showing obesity as a cause. Patient has follow-up with urology also for urinary retention erectile dysfunction. On combination of finasteride and tamsulosin. Patient has also seen Cardiology August 2023 congestive heart failure from atrial fibrillation on amiodarone echocardiogram August 2023 shows normal left ventricular cavity size EF 50 to 55% mild dilatation of the ascending aorta to 3.9. COUNT INCLUDES THE [facility] Medical History (Updated 12/14/23 @ 14:55 by Carmen Peters MD) CHF (congestive heart failure) Preop exam for internal medicine Bilateral pleural effusion Pneumonia Physical deconditioning CKD (chronic kidney disease) stage 3, GFR 30-59 ml/min (HFpEF) heart failure with preserved ejection fraction Obesity (BMI 30-39.9) LARISSA (obstructive sleep apnea) PAF (paroxysmal atrial fibrillation) Type 2 diabetes mellitus with unspecified complications Peptic ulcer disease Non Hodgkin's lymphoma Anxiety and depression Hypercholesterolemia Vitamin D deficiency Obesity (BMI 30-39.9) Type 2 diabetes mellitus with hyperglycemia Thrombocytopenia Surgical History Hx of cataract extraction History of esophagogastroduodenoscopy (EGD) H/O colonoscopy H/O lymph node biopsy History of shoulder surgery Family History Father Lung cancer Mother Breast cancer Sister Breast cancer Brother Substance use disorder Sister No problems noted. Son No problems noted. Daughter No problems noted. Social History Household Members: Spouse and Children Housing: House Are you a primary certified social workers in health care to a significant other at home: No Do you presently have visiting nurse or other home services: No Alcohol intake: never Patient Tobacco Use Status: Never used Tobacco e-Cigarette/Vaping Use: Never Used Second Hand Smoke Exposure: No Advance Directives Date on File: 12/19/21 service: No Current occupational status: retired Cognitive needs: Yes (pricila Grant) Hearing needs: No Vision needs: Yes Questionnaire PHQ-9 Over the last 2 weeks, how often have you been bothered by any of the following problems? 1. Little interest or pleasure in doing things: nearly every day 2. Feeling down, depressed, or hopeless: more than half the days 3. Trouble falling or staying asleep, or sleeping too much: nearly every day 4. Feeling tired or having little energy: nearly every day 5. Poor appetite or overeating: nearly every day 6. Feeling bad about yourself - or that you are a failure or have let yourself or your family down: not at all 7. Trouble concentrating on things, such as reading the newspaper or watching television: nearly every day 8. Moving or speaking so slowly that other people could have noticed. Or the opposite - being so fidgety or restless that you have been moving around a lot more than usual: nearly every day 9. Thoughts that you would be better off or of hurting yourself in some way: not at all Total score: 20 Depression Screening Interpretation: Positive Depression Screening Done: Yes 81720 - PHQ-9 Billing: Yes Source: Developed by Drs. Simon L. AbelardoLatisha el Kurt Kroenke and colleagues, with an educational skye from [employer]. Thrive Questionnaire Date Thrive assessed: 12/14/23 I am a: Patient What is your living situation today?: I have a steady place to live Within the past 12 months, did the food you bought not last and you didn't have the money to get more?: Never true Within the past 12 months, did you worry whether your food would run out before you got money to buy more?: Never true Do you have trouble paying for medicines?: No Do you have trouble getting transportation to medical appointments?: No Do you have trouble paying your heating and electricity bill?: No Do you have trouble taking care of your child, family member or friend?: No Do you have trouble with day-to-day activities such as bathing, preparing meals, shopping, managing finances, etc.?: No Are you currently unemployed and looking for a job?: No Are you interested in more education?: No Currently or been in a relationship where the following occur: no concerns reported THRIVE Score: 0 AUDIT C Alcohol Use Questionnaire (AUDIT-C) 1. How often do you have a drink containing alcohol?: Never 2. How many drinks containing alcohol do you have on a typical day when you are drinking?: 1 or 2 3. How often do you have six or more drinks on one occasion?: Never Total Score: 0 Score Reviewed/Action Taken: No AIDAN-7 AMB Questionnaire AIDAN-7 Date AIDAN - 7 assessed: 12/14/23 Feeling nervous, anxious, or on edge: 0 = Not at all Not being able to stop or control worryin = Not at all Worrying too much about different things: 0 = Not at all Trouble relaxin = Not at all Being so restless that it is hard to sit still: 0 = Not at all Becoming easily annoyed or irritable: 0 = Not at all Feeling afraid as if something awful might happen: 0 = Not at all Total AIDAN-7 score (0-4 normal; 5-9 mild; 10-14 moderate; 15-21 severe): 0 Source: Developed by Latisha Chaudhary Kurt Kroenke and colleagues, with an educational skye from [employer]. Physical exam (Primary Care) Vital Signs: Last Vital Signs Pulse 58 12/14/23 14:33 BP 158/92 H 12/14/23 14:33 Oxygen Delivery Method Room Air 12/14/23 14:33 BMI result Body Mass Index 28.5 Tobacco/Smoking Status: Tobacco use Status Tobacco use date assessed 12/14/23 12/14/23 14:35 Patient Tobacco Use Status Never used Tobacco 12/14/23 14:30 e-Cigarette/Vaping Use Never Used 12/14/23 14:30 PHQ-9: PHQ-9 Score PHQ-9: Total score 20 12/14/23 14:35 Depression Screening Interpretation: Positive Thrive Assessment: Date of Thrive Assessment Date Thrive assessed 12/14/23 12/14/23 14:35 Currently or been in a relationship where the following occur: no concerns reported Const General: alert; No acute distress Eyes Conjunctivae: conjunctivae normal Resp Auscultation: clear to auscultation bilaterally Cardio Rate: regular rate Rhythm: regular rhythm GI Inspection: Yes normal to inspection Extrem General: Yes normal to inspection and No edema Assessment and Plan Assessment & Plan (1) Essential hypertension: Code(s): I10 - Essential (primary) hypertension Plan: Continue with blood pressure medication. Decrease salt intake and exercise presently on metoprolol 100 mg once a day (2) Hypercholesterolemia: Code(s): E78.00 - Pure hypercholesterolemia, unspecified Plan: Avoid fried foods, chicken skin, eggs, butter margarine, pastries and meat. Be it pork or beef they have a lot of cholesterol takes atorvastatin 40 mg once a day (3) Chronic heart failure with preserved ejection fraction (HFpEF): Code(s): I50.32 - Chronic diastolic (congestive) heart failure Plan: Continue with the diuretic and monitor for renal function. (4) Hypothyroid: Code(s): E03.9 - Hypothyroidism, unspecified Plan: Continue with thyroid medication (5) Type 2 diabetes mellitus with hyperglycemia: Comment: dx ~ 2014-does not check glucose at home Code(s): E11.65 - Type 2 diabetes mellitus with hyperglycemia Qualifiers: Diabetes mellitus nursing home insulin use: without nursing home use Qualified Code(s): E11.65 - Type 2 diabetes mellitus with hyperglycemia Plan: Decrease the amount of carbohydrate intake, pasta, bread, rice and potatoes are all sugar and that is aside from all the sweet stuff, remember that fruits are good but they are Sweet also. Hemoglobin A1c goal of less than 7.0. Patient on glipizide 5 mg once a day (6) PAF (paroxysmal atrial fibrillation): Comment: Cardioversion 12/04/2021 Code(s): I48.0 - Paroxysmal atrial fibrillation Plan: Continue with anticoagulation and amiodarone. Orders: Orders Comprehensive Met. Panel Today I10 - Essential (primary) hypertension Thyroid Stimulating Hormone Today I10 - Essential (primary) hypertension B Type Natriuretic Peptide Today I10 - Essential (primary) hypertension Ferritin Today E11.65 - Type 2 diabetes mellitus with hyperglycemia Reticulocyte Count Today E11.65 - Type 2 diabetes mellitus with hyperglycemia Comprehensive Met. Panel 3 Months E11.65 - Type 2 diabetes mellitus with hyperglycemia Microalbumin, Random (w Creat) 3 Months E11.65 - Type 2 diabetes mellitus with hyperglycemia Thyroid Stimulating Hormone 3 Months E11.65 - Type 2 diabetes mellitus with hyperglycemia Vitamin B12 and Folate 3 Months E11.65 - Type 2 diabetes mellitus with hyperglycemia Ferritin 3 Months E11.65 - Type 2 diabetes mellitus with hyperglycemia Free T4 (Free Thyroxine) Today I10 - Essential (primary) hypertension Complete Blood Count Auto Diff Today E11.65 - Type 2 diabetes mellitus with hyperglycemia IRON PROFILE Today E11.65 - Type 2 diabetes mellitus with hyperglycemia Vitamin B12 and Folate Today E11.65 - Type 2 diabetes mellitus with hyperglycemia Complete Blood Count Auto Diff 3 Months E11.65 - Type 2 diabetes mellitus with hyperglycemia Creatinine Urine 3 Months E11.65 - Type 2 diabetes mellitus with hyperglycemia Free T4 (Free Thyroxine) 3 Months E11.65 - Type 2 diabetes mellitus with hyperglycemia B Type Natriuretic Peptide 3 Months E11.65 - Type 2 diabetes mellitus with hyperglycemia Hemoglobin A1c 3 Months E11.65 - Type 2 diabetes mellitus with hyperglycemia Lipid Panel 3 Months E11.65 - Type 2 diabetes mellitus with hyperglycemia, E78.00 - Pure hypercholesterolemia, unspecified IRON PROFILE 3 Months E11.65 - Type 2 diabetes mellitus with hyperglycemia Reticulocyte Count 3 Months E11.65 - Type 2 diabetes mellitus with hyperglycemia UA CC w/rflx Micro + Cult 3 Months E11.65 - Type 2 diabetes mellitus with hyperglycemia, R30.0 - Dysuria Coding Level of Care Code Est Pt Level 4 (28301) Diagnoses Essential hypertension I10 Hypercholesterolemia E78.00 Chronic heart failure with preserved ejection fraction (HFpEF) I50.32 Hypothyroid E03.9 Type 2 diabetes mellitus with hyperglycemia, without long-term current use of insulin E11.65 Diabetes mellitus nursing home insulin use: without 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
[2023-12-14 14:33] VITALS: BP 158/92; PULSE 58; BMI 28.5
[2023-12-14 14:59] VITALS: BP 144/90
== END 2023-12-14 15:11 | disposition home or self-care (01) ==
PROVIDERS: PCP Internal Medicine; Visit Provider Internal Medicine
DX: I11.0 Hypertensive heart disease with heart failure (principal); I50.32 Chronic diastolic (congestive) heart failure; E11.65 Type 2 diabetes mellitus with hyperglycemia; I48.0 Paroxysmal atrial fibrillation; E78.00 Pure hypercholesterolemia, unspecified; E03.9 Hypothyroidism, unspecified
CPT/HCPCS: 99214

== ENCOUNTER 2023-12-17 09:22 | Outpatient (REF) | payer MEDICARE, SELFPAY ==
[2023-12-17 09:42] LABS: MANUAL DIFF FLAG NO
[2023-12-17 09:51] LABS: Basophils Percent Auto 0.6 % (0-2); Eosinophils Absolute Auto 0.1 X10*3/uL (0.0-0.4); Eosinophils Percent Auto 2.5 % (0-4); Hematocrit 40.1 % (42.0-52.0); Hemoglobin 12.7 g/dl (14.0-18.0); Imm Gran Abs Auto 0.03 X10*3/uL (0.00-0.03); Imm Gran Pct Auto 0.6 % (0.0-0.4); Immature Retic Fraction 14.6 % (2.3-13.4); Lymphocytes Absolute Auto 1.2 X10*3/uL (1.2-4.9); Lymphocytes Percent Auto 22.8 % (20-40); Mean Corpuscular HGB Conc 31.7 g/dl (31.0-36.0); Mean Corpuscular Hemoglobin 25.6 pg (27.0-33.0); Mean Corpuscular Volume 80.7 fL (80.0-98.0); Mean Platelet Volume 9.4 fL (9.4-12.4); Monocytes Absolute Auto 0.4 X10*3/uL (0.1-1.2); Neutrophils Absolute Auto 3.5 x10*3/uL (2.0-8.3); Neutrophils Percent Auto 65.5 % (45-73); Platelet Count 161 X10*3/uL (160-400); Red Blood Count 4.97 X10*6/uL (4.60-5.80); Red Cell Distribution Width 19.1 % (11.0-16.0); Reticulocyte Percent 1.8 % (0.5-1.8); Reticulocytes Absolute 0.088 X10*6/uL (0.026-0.095); White Blood Count 5.3 X10*3/uL (4.8-10.8)
[2023-12-17 10:35] LABS: B Type Natriuretic Peptide 293 pg/mL (<100)
[2023-12-17 10:36] LABS: Alanine Aminotransferase 30 U/L (0-40); Albumin Level 4.1 g/dL (3.5-5.0); Alkaline Phosphatase 111 U/L (39-117); Anion Gap 16 (12-20); Aspartate Amino Transferase 35 U/L (5-37); Bilirubin Total 0.6 mg/dL (0.0-1.0); Blood Urea Nitrogen 20 mg/dL (9-16); Calcium 9.8 mg/dL (8.4-10.2); Carbon Dioxide 29 mmol/L (22-29); Chloride 100 mmol/L (96-108); Estimated Glomerular Filt Rate 38; Glucose Random 201 mg/dL (60-115); Iron 68 mcg/dL (45-160); Percent Iron Saturation 25 % (15-50); Potassium 4.4 mmol/L (3.3-5.1); Sodium 141 mmol/L (135-145); Total Iron Binding Capacity 277 mcg/dL (228-428); Total Protein 7.6 g/dL (6.5-8.0); Unsaturated Iron Binding 209 ug/dL
[2023-12-17 10:56] LABS: Ferritin 220 ng/mL (20-250); Free T4 (Free Thyroxine) 1.24 ng/dL (0.71-1.85); Thyroid Stimulating Hormone 4.34 uIU/mL (0.32-4.0)
[2023-12-17 11:10] LABS: Folate 13.8 ng/mL (> or = 4.0); Vitamin B12 525 pg/mL (200-900)
== END 2023-12-17 09:23 | disposition home or self-care (01) ==
LOC: HO.LAB 09:22
PROVIDERS: PCP Internal Medicine; Visit Provider Internal Medicine
DX: I10 Essential (primary) hypertension (principal); E11.65 Type 2 diabetes mellitus with hyperglycemia
CPT/HCPCS: 36415; 80053; 82607; 82728; 82746; 83540; 83880; 84439; 84443; 85025; 85045

== ENCOUNTER 2023-12-20 10:53 | Outpatient (AMB) | payer MEDICARE, SELFPAY ==
[2023-12-20 11:01] VITALS: BP 138/68; PULSE 58; O2SAT 98; BMI 28.6
--- NOTE | 2023-12-20 11:01 | A.OFFVIS_ITS ---
Vital Signs 12/20/23 11:01 Height 5 ft 5 in Weight 171 lb 15.369 oz BMI 28.6 BP 138/68 Blood Pressure Location Lt brachial Position Sitting Pulse 58 Pulse Source Pulse Oximeter Pulse Oximetry (%) 98 Oxygen Delivery Method Room Air Intake Visit Reasons: 4 mth f/up Allergies amlodipine Adverse Reaction (Intermediate, Verified 12/14/23 14:34) leg swelling gabapentin Adverse Reaction (Intermediate, Verified 12/14/23 14:34) lethargy lisinopril Adverse Reaction (Intermediate, Verified 12/14/23 14:34) Cough metformin Adverse Reaction (Intermediate, Verified 12/14/23 14:34) lethargy Medication List - Last Reconciled 12/20/23 by Brain Su MD amiodarone 200 mg PO DAILY apixaban (Eliquis) 5 mg PO BID ascorbic acid (vitamin C) 250 mg PO DAILY atorvastatin 40 mg PO DAILY cholecalciferol (vitamin D3) (Vitamin D3) 25 mcg PO DAILY escitalopram oxalate 10 mg PO DAILY ferrous sulfate 325 mg PO DAILY finasteride 5 mg PO DAILY 90 days furosemide 40 mg PO DAILY glipizide ER 5 mg PO DAILY levothyroxine 88 mcg PO DAILY@1100 metoprolol succinate ER 100 mg PO DAILY 90 days metronidazole 1% 1 appl topical BEDTIME multivitamin 1 tab PO DAILY nystatin 1 appl See Protocol topical TID 7 days tamsulosin 0.4 mg PO BEDTIME 90 days walker (Ultra-Light Rollator misc) As directed HPI Comments Details: Augustus returns for follow-up all regarding atrial fibrillation and congestive heart failure. In 2022, he was in congestive heart failure suspected to be from atrial fibrillation. He was put on amiodarone and then we plan to cardioversion but he went back to normal by himself. states that he is actually much better off while staying in sinus rhythm. In the past however, when he underwent a cardioversion there was not much of a difference either way. Since last seen, no new complaints. Doing well. [facility] Medical History (Updated 12/14/23 @ 14:55 by Carmen Peters MD) CHF (congestive heart failure) Preop exam for internal medicine Bilateral pleural effusion Pneumonia Physical deconditioning CKD (chronic kidney disease) stage 3, GFR 30-59 ml/min (HFpEF) heart failure with preserved ejection fraction Obesity (BMI 30-39.9) LARISSA (obstructive sleep apnea) PAF (paroxysmal atrial fibrillation) Type 2 diabetes mellitus with unspecified complications Peptic ulcer disease Non Hodgkin's lymphoma Anxiety and depression Hypercholesterolemia Vitamin D deficiency Obesity (BMI 30-39.9) Type 2 diabetes mellitus with hyperglycemia Thrombocytopenia Surgical History Hx of cataract extraction History of esophagogastroduodenoscopy (EGD) H/O colonoscopy H/O lymph node biopsy History of shoulder surgery Family History Father Lung cancer Mother Breast cancer Sister Breast cancer Brother Substance use disorder Sister No problems noted. Son No problems noted. Daughter No problems noted. Social History Household Members: Spouse and Children Housing: House Are you a primary veterinarian laboratory animal care to a significant other at home: No Do you presently have visiting nurse or other home services: No Alcohol intake: never Patient Tobacco Use Status: Never used Tobacco e-Cigarette/Vaping Use: Never Used Second Hand Smoke Exposure: No Advance Directives Date on File: 12/19/21 service: No Current occupational status: retired Cognitive needs: Yes (Walker, cane) Hearing needs: No Vision needs: Yes Review of Systems Const Denies weakness ENT Denies dizziness Card Denies chest pain, Denies chest pain with activity, Denies syncope, Denies rapid heart rate, Denies pedal edema, Denies edema, Denies leg edema, Denies lightheadedness, Denies palpitations, Denies dyspnea, Denies dyspnea on exertion and Denies orthopnea Resp Denies cough, Denies dyspnea and Denies dyspnea on exertion GI Denies hematochezia and Denies change in stool character Musc Denies abnormal gait, Denies muscle cramps, Denies muscle weakness, Denies nu mbness, Denies radiating pain into limb and Denies tingling Neuro Denies abnormal gait, Denies dizziness, Denies syncope, Denies numbness, Denies tingling and Denies weakness Endo Denies palpitations Physical Exam Vital Signs: Last Vital Signs Pulse 58 12/20/23 11:01 BP 138/68 12/20/23 11:01 Pulse Ox 98 12/20/23 11:01 Oxygen Delivery Method Room Air 12/20/23 11:01 BMI result Body Mass Index 28.6 Const General: comfortable and no acute distress Orientation/consciousness: patient oriented x3 HEENT Other: Unremarkable Head: Yes normal to inspection Neck Neck: Yes normal visual inspection Chest Chest palpation & inspection: normal inspection of the chest Resp Auscultation: clear to auscultation bilaterally Cardio Palpation: normal PMI Heart sounds: S1 normal heart sound present, S2 normal heart sound present, no gallops, no murmurs and no rubs GI Palpation (GI): Soft to palpation Back/Spine/Pelvis Other: unremarkable Skin General skin exam: no rashes or lesions noted Neuro General: patient oriented x3 Extrem General: Yes normal to inspection Psych Mental Status: mental status grossly normal Assessment & Plan Assessment & Plan (1) PAF (paroxysmal atrial fibrillation): Comment: Cardioversion 12/04/2021 Code(s): I48.0 - Paroxysmal atrial fibrillation Category: Medical Plan: Status post cardioversion in 2021 but he atrial fibrillation recurred few months back but resolved with amiodarone before cardioversion. Remains amiodarone. Thyroid function can be monitored periodically. Otherwise, continue anticoagulation. (2) Chronic heart failure with preserved ejection fraction (HFpEF): Code(s): I50.32 - Chronic diastolic (congestive) heart failure Category: Medical Plan: He does have CKD. Advised him to just take Lasix as necessary and not daily. They understand. (3) Essential hypertension: Code(s): I10 - Essential (primary) hypertension Category: Medical Plan: Stable. No changes. (4) LARISSA (obstructive sleep apnea): Comment: PATIENT HAS HISTORY OF OBSTRUCTIVE SLEEP APNEA AND USED TO BE ON CPAP REGULARLY. SINCE THE LAST YEAR HE HAS NOT USED CPAP AT ALL AND CLAIMS THAT HE IS SLEEPING BETTER. I THINK DUE TO SIGNIFICANT WEIGHT REDUCTION, HIS LARISSA HAS RESOLVED. Code(s): G47.33 - Obstructive sleep apnea (adult) (pediatric) Category: Medical Plan: states that patient lost lot of weight and after that he didn't have to use CPAP as recommended by Pulmonary. Coding Level of Care Code Est Pt Level 4 (85169) Diagnoses PAF (paroxysmal atrial fibrillation) I48.0 Chronic heart failure with preserved ejection fraction (HFpEF) I50.32 Essential hypertension I10 LARISSA (obstructive sleep apnea) G47.33
== END 2023-12-20 11:19 | disposition home or self-care (01) ==
PROVIDERS: PCP Internal Medicine; Visit Provider Internal Medicine
DX: I48.0 Paroxysmal atrial fibrillation (principal); I50.32 Chronic diastolic (congestive) heart failure; I10 Essential (primary) hypertension; G47.33 Obstructive sleep apnea (adult) (pediatric)
CPT/HCPCS: 99214

== ENCOUNTER → 2023-12-20 10:53 | Outpatient (BNVA) | payer MEDICARE, SELFPAY | PROVIDERS: PCP Internal Medicine; Visit Provider Internal Medicine | DX: I48.0 Paroxysmal atrial fibrillation (principal); I11.0 Hypertensive heart disease with heart failure; I50.32 Chronic diastolic (congestive) heart failure; G47.33 Obstructive sleep apnea (adult) (pediatric) | CPT/HCPCS: 99212 ==

== ENCOUNTER 2024-02-17 07:42 | Outpatient (REF) | payer MEDICARE, SELFPAY ==
[2024-02-17 08:01] LABS: MANUAL DIFF FLAG NO
[2024-02-17 08:38] LABS: Appearance Urine Clear; Color Urine Yellow; Glucose Urine UA Negative (Negative); Leukocyte Esterase Urine Negative (Negative); Nitrite Urine Negative (Negative); PH 6.5 (5.0-9.0); Specific Gravity - Urine 1.015 (1.005-1.025); Urine Blood Negative (Negative); Urine Ketones Negative (Negative); Urine Protein Trace mg/dL (Neg-Trace)
[2024-02-17 08:39] LABS: Basophils Percent Auto 0.6 % (0-2); Eosinophils Absolute Auto 0.1 X10*3/uL (0.0-0.4); Eosinophils Percent Auto 2.6 % (0-4); Hemoglobin 12.3 g/dl (14.0-18.0); Imm Gran Abs Auto 0.03 X10*3/uL (0.00-0.03); Imm Gran Pct Auto 0.6 % (0.0-0.4); Immature Retic Fraction 19.1 % (2.3-13.4); Lymphocytes Absolute Auto 1.3 X10*3/uL (1.2-4.9); Lymphocytes Percent Auto 23.8 % (20-40); Mean Corpuscular HGB Conc 31.5 g/dl (31.0-36.0); Mean Corpuscular Hemoglobin 26.8 pg (27.0-33.0); Mean Platelet Volume 9.9 fL (9.4-12.4); Monocytes Absolute Auto 0.5 X10*3/uL (0.1-1.2); Monocytes Percent Auto 9.6 % (2-11); Neutrophils Absolute Auto 3.4 x10*3/uL (2.0-8.3); Neutrophils Percent Auto 62.8 % (45-73); Platelet Count 177 X10*3/uL (160-400); Red Blood Count 4.59 X10*6/uL (4.60-5.80); Red Cell Distribution Width 16.7 % (11.0-16.0); Retic HGB Equivalent 29.5 pg (30.0-35.0); Reticulocyte Percent 2.6 % (0.5-1.8); Reticulocytes Absolute 0.121 X10*6/uL (0.026-0.095); White Blood Count 5.3 X10*3/uL (4.8-10.8)
[2024-02-17 08:52] LABS: Estimated Average Glucose 105 mg/dL; Hemoglobin A1c % 5.3 % (<6.0)
[2024-02-17 09:00] LABS: Creatinine Urine 80.66 mg/dL; Microalbum/Creatinine Ratio Ur 48.3 ug/mg cr (<30)
[2024-02-17 09:06] LABS: B Type Natriuretic Peptide 340 pg/mL (<100)
[2024-02-17 09:17] LABS: Alanine Aminotransferase 33 U/L (0-40); Albumin Level 4.1 g/dL (3.5-5.0); Alkaline Phosphatase 111 U/L (39-117); Anion Gap 12 (12-20); Aspartate Amino Transferase 35 U/L (5-37); Bilirubin Total 0.6 mg/dL (0.0-1.0); Blood Urea Nitrogen 22 mg/dL (9-16); Calcium 9.8 mg/dL (8.4-10.2); Carbon Dioxide 30 mmol/L (22-29); Chloride 104 mmol/L (96-108); Cholesterol 126 mg/dL (<200); Estimated Glomerular Filt Rate 42; Glucose Random 129 mg/dL (60-115); HDL Cholesterol 37 mg/dL (>40); Iron 53 mcg/dL (45-160); LDL Cholesterol Calculated 74 mg/dL (<100); Percent Iron Saturation 21 % (15-50); Potassium 5.1 mmol/L (3.3-5.1); Sodium 141 mmol/L (135-145); Total Iron Binding Capacity 254 mcg/dL (228-428); Total Protein 7.2 g/dL (6.5-8.0); Triglycerides 75 mg/dL (<150); Unsaturated Iron Binding 201 ug/dL
[2024-02-17 09:26] LABS: Ferritin 203 ng/mL (20-250); Free T4 (Free Thyroxine) 1.08 ng/dL (0.71-1.85); Thyroid Stimulating Hormone 6.13 uIU/mL (0.32-4.0)
[2024-02-17 09:35] LABS: Folate 11.7 ng/mL (> or = 4.0); Vitamin B12 456 pg/mL (200-900)
== END 2024-02-17 07:43 | disposition home or self-care (01) ==
LOC: HO.LAB 07:42
PROVIDERS: PCP Internal Medicine; Visit Provider Internal Medicine
DX: E11.65 Type 2 diabetes mellitus with hyperglycemia (principal); E03.9 Hypothyroidism, unspecified; E78.00 Pure hypercholesterolemia, unspecified; R30.0 Dysuria; L03.90 Cellulitis, unspecified
CPT/HCPCS: 36415; 80053; 80061; 81003; 82043; 82570; 82607; 82728; 82746; 83036; 83540; 83880; 84439; 84443; 85025; 85045; 87070; 87205

== ENCOUNTER 2024-02-17 14:17 | Outpatient (AMB) | payer MEDICARE, SELFPAY ==
[2024-02-17 14:19] VITALS: BP 150/70; PULSE 56; TEMP 36.4; O2SAT 97
--- NOTE | 2024-02-17 14:19 | MHC.OFFWIV ---
Intake Vital Signs 02/17/24 14:19 Height 5 ft 5 in BP 150/70 H Blood Pressure Location Rt brachial Position Sitting Pulse 56 Pulse Source Pulse Oximeter Temp 97.6 F Temp Source Temporal Artery Scan Pulse Oximetry (%) 97 Oxygen Delivery Method Room Air Intake Visit Reasons: Infected sore over left eye Intake Note: pt is here for infected sore over left eye/forehead and behind left eye Patient Tobacco Use Status: Never used Tobacco Allergies amlodipine Adverse Reaction (Intermediate, Verified 02/17/24 14:19) leg swelling gabapentin Adverse Reaction (Intermediate, Verified 02/17/24 14:19) lethargy lisinopril Adverse Reaction (Intermediate, Verified 02/17/24 14:19) Cough metformin Adverse Reaction (Intermediate, Verified 02/17/24 14:19) lethargy Medication List - Last Reconciled 02/17/24 by Sindhu Nunez NP amiodarone 200 mg PO DAILY apixaban (Eliquis) 5 mg PO BID ascorbic acid (vitamin C) 250 mg PO DAILY atorvastatin 40 mg PO DAILY cholecalciferol (vitamin D3) (Vitamin D3) 25 mcg PO DAILY escitalopram oxalate 10 mg PO DAILY ferrous sulfate 325 mg PO DAILY finasteride 5 mg PO DAILY 90 days furosemide 40 mg PO DAILY glipizide ER 5 mg PO DAILY levothyroxine 88 mcg PO DAILY@1100 metoprolol succinate ER 100 mg PO DAILY 90 days metronidazole 1% 1 appl topical BEDTIME multivitamin 1 tab PO DAILY nystatin 1 appl See Protocol topical TID 7 days sulfamethoxazole-trimethoprim 800-160 mg 1 tab PO BID 10 days tamsulosin 0.4 mg PO BEDTIME 90 days walker (Ultra-Light Rollator [facility] [place]) As directed Do you need a note to return to daycare/school/sports/work: No HPI Infected sore over left eye HPI Details This note is constructed using voice recognition software. 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 78-year-old male patient presents with 3 day history of open wound to his left upper forehead. He notes that he did pick at it some, the area has become increasingly tender. He notes a longstanding history of diabetes, chronic anticoagulant use. He denies fever, chills, or generalized body aches. He was applying topical antibiotic ointment, however his red that that is no longer recommended treatment so he stopped doing that 2 days ago. He reports redness over the area as well as some swelling into the upper eyelid on the left. He denies any visual changes. [facility] Medical History (Updated 12/14/23 @ 14:55 by Carmen Peters MD) CHF (congestive heart failure) Preop exam for internal medicine Bilateral pleural effusion Pneumonia Physical deconditioning CKD (chronic kidney disease) stage 3, GFR 30-59 ml/min (HFpEF) heart failure with preserved ejection fraction Obesity (BMI 30-39.9) LARISSA (obstructive sleep apnea) PAF (paroxysmal atrial fibrillation) Type 2 diabetes mellitus with unspecified complications Peptic ulcer disease Non Hodgkin's lymphoma Anxiety and depression Hypercholesterolemia Vitamin D deficiency Obesity (BMI 30-39.9) Type 2 diabetes mellitus with hyperglycemia Thrombocytopenia Surgical History Hx of cataract extraction History of esophagogastroduodenoscopy (EGD) H/O colonoscopy H/O lymph node biopsy History of shoulder surgery Family History Father Lung cancer Mother Breast cancer Sister Breast cancer Brother Substance use disorder Sister No problems noted. Son No problems noted. Daughter No problems noted. Social History Household Members: Spouse and Children Housing: House Are you a primary progressive care nurse to a significant other at home: No Do you presently have visiting nurse or other home services: No Alcohol intake: never Patient Tobacco Use Status: Never used Tobacco e-Cigarette/Vaping Use: Never Used Second Hand Smoke Exposure: No Advance Directives Date on File: 12/19/21 service: No Current occupational status: retired Cognitive needs: Yes (Walker, cane) Hearing needs: No Vision needs: Yes Review of Systems Const All systems reviewed & are unremarkable except as noted in HPI and below Physical Exam Vital Signs: Last Vital Signs Temp 97.6 F 02/17/24 14:19 Pulse 56 02/17/24 14:19 BP 150/70 H 02/17/24 14:19 Pulse Ox 97 02/17/24 14:19 Oxygen Delivery Method Room Air 02/17/24 14:19 Const General: cooperative, healthy appearing, comfortable, no acute distress and alert Orientation/consciousness: patient oriented x3 Limitations: no limitations Eyes General: appearance normal, both eyes and all related structures Resp Effort & Inspection: normal respiratory effort and able to speak in complete sentences Auscultation: clear to auscultation bilaterally Cardio Jugular venous distension: no JVD Palpation: normal PMI Rate: regular rate Heart sounds: S1 normal heart sound present, S2 normal heart sound present, no click, no gallops, no murmurs and no rubs Skin Other: Left upper forehead with 3 open lesions, one with purulent discharge. Warmth to the area with surrounding errythema. The lesions are 3 mm x 5 mm approximately, and oval in shape, flat. General skin exam: erythema (To left upper forehead surrounding wounds, approximately 4 x 4 cm) Neuro General: patient oriented x3 Psych Appearance: grossly normal Mental Status: mental status grossly normal Speech and movement: Normal speech and movement present Affect: normal affect Assessment & Plan Assessment & Plan (1) Cellulitis, unspecified: Code(s): L03.90 - Cellulitis, unspecified Qualifiers: Site of cellulitis: face Qualified Code(s): L03.211 - Cellulitis of face Plan: Antibiotics ordered for treatment. Culture obtained in the event we are not successful at treating this. Advised avoidance of applying antibacterial ointment as this does not actually help him to resolve the area, and if he needs to put anything topical he could apply something simple like Vaseline. Advised avoidance of touching the area and picking. Reviewed concern of lack of healing in setting of being diabetic and on blood thinners. Advised follow up with PCP, which is scheduled for next week. Advised re-evaluation if no improvement or any worsening after 48 hours of treatment. Advised to ER with any vision changes. Plan See above for full details and plan. Orders: Orders Routine Culture w Gram Stain Today L03.90 - Cellulitis, unspecified Medications: New sulfamethoxazole-trimethoprim 800-160 mg 1 tab PO BID 10 days 20 tabs 0RF Coding Level of Care Code Est Pt Level 4 (59877) Diagnoses Cellulitis of face L03.211 Site of cellulitis: face
== END 2024-02-17 15:08 | disposition home or self-care (01) ==
PROVIDERS: PCP Internal Medicine; Visit Provider Registered Nurse
DX: L03.211 Cellulitis of face (principal)
CPT/HCPCS: 99213

== ENCOUNTER 2024-02-17 14:38 | Outpatient (REF) | payer MEDICARE, SELFPAY | END 2024-02-17 14:39 | disposition home or self-care (01) | LOC: HO.LNP 14:38 | PROVIDERS: Visit Provider Registered Nurse | DX: Z13.89 Encounter for screening for other disorder (principal) ==

== ENCOUNTER 2024-02-18 09:47 | Emergency (ER) | payer MEDICARE, SELFPAY ==
[2024-02-18 09:51] VITALS: BP 160/94; PULSE 59; RESP 20; TEMP 37; O2SAT 96; BMI 30.2
--- NOTE | 2024-02-18 10:19 | ED_ITS ---
HPI - General Adult General Chief complaint: Eye Problems Stated complaint: Eye swelling Time Seen by Provider: 02/18/24 10:15 Source: patient and family (patient's ) Mode of arrival: ambulatory Limitations: no limitations History of Present Illness ED Provider: Zhane Paulson PA-C HPI narrative: Patient is an 78 year old assigned male at with a history of a-fib, DM, PVD, rosacea, HTN, and CKD presenting to the emergency department today with worsening left sided facial pain / swelling. Patient states that over the last 4 days he has had left sided facial swelling and pain. Patient states that he was having horrible headaches before he developed a rash to the left forehead and it has continued to be painful. Patient states that he was seen at an urgent care yesterday and prescribed Bactrim. Patient denies any dizziness, lightheadedness, abdominal pain, nausea, vomiting, fever, chills, blurry vision, double vision, loss of vision, chest pain, difficulty breathing, shortness of breath, back pain, night sweats, pain with urination, increased urinary frequency, increased urinary urgency, blood in his urine or stool, syncope or a near syncopal episode, recent trauma or falls, bowel incontinence, bladder incontinence, or any other complaints at this time. Onset (ago): day(s) (4) Location: head, eyes and left Severity: moderate Severity scale (1-10): 5 Quality: aching Pain Consistency: constant Relieving factors: none Exacerbating factors: none Associated symptoms: rash Treatments prior to arrival: other (bactrim) Related Data Home Medications ?Medication ?Instructions ?Recorded ?Confirmed cholecalciferol (vitamin D3) 25 25 mcg PO DAILY 12/06/21 02/17/24 mcg (1,000 unit) tablet (Vitamin D3) multivitamin 1 tab PO DAILY 03/10/23 02/17/24 ascorbic acid (vitamin C) 250 mg 250 mg PO DAILY 05/25/23 02/17/24 tablet amiodarone 200 mg tablet 200 mg PO DAILY 11/09/23 02/17/24 Previous Rx's ?Medication ?Instructions ?Recorded walker (Ultra-Light Rollator misc) #1 ea 01/15/23 nystatin 100,000 unit/gram topical 1 appl topical TID 7 days #60 grams 06/18/23 powder metoprolol succinate 100 mg 100 mg PO DAILY 90 days #90 tabs 04/06/23 tablet,extended release 24 hr ferrous sulfate 325 mg (65 mg 325 mg PO DAILY #90 tabs 04/16/23 iron) tablet finasteride 5 mg tablet 5 mg PO DAILY 90 days #90 tabs 05/18/23 metronidazole 1 % topical gel 1 appl topical BEDTIME #60 grams 07/21/23 tamsulosin 0.4 mg capsule 0.4 mg PO BEDTIME 90 days #90 caps 08/20/23 glipizide 5 mg tablet, extended 5 mg PO DAILY #90 tabs 09/03/23 release 24 hr atorvastatin 40 mg tablet 40 mg PO DAILY #90 tabs 09/10/23 escitalopram oxalate 10 mg tablet 10 mg PO DAILY #90 tabs 09/10/23 furosemide 40 mg tablet 40 mg PO DAILY #90 tabs 09/10/23 apixaban 5 mg tablet (Eliquis) 5 mg PO BID #180 tabs 01/24/24 levothyroxine 100 mcg tablet 100 mcg PO DAILY@1100 90 days #90 02/17/24 tabs sulfamethoxazole 800 1 tab PO BID 10 days #20 tabs 02/17/24 mg-trimethoprim 160 mg tablet cephalexin 500 mg capsule 500 mg PO Q6H 7 days #28 caps 02/18/24 oxycodone 5 mg tablet 5 mg PO Q8H PRN pain #7 tabs 02/18/24 valacyclovir 1 gram tablet 1,000 mg PO Q12H 7 days #14 tabs 02/18/24 (Valtrex) Allergies Allergy/AdvReac Type Severity Reaction Status Date / Time amlodipine AdvReac Intermediate leg Verified 02/18/24 09:55 swelling gabapentin AdvReac Intermediate lethargy Verified 02/18/24 09:55 lisinopril AdvReac Intermediate Cough Verified 02/18/24 09:55 metformin AdvReac Intermediate lethargy Verified 02/18/24 09:55 Review of Systems 2 Constitutional: Constitutional: Reports no additional constitutional complaints, Denies chills, Denies fever(s), Reports headache(s) and Denies night sweats Eyes: Eyes: Reports no additional eye complaints, Denies blurry vision, Denies change in vision, Denies diplopia, Denies eye discharge, Denies loss of vision and Reports eye pain (left eye) ENT: Denies dizziness and Reports headache(s) Cardiovascular: Cardiovascular: Reports no additional cardiovascular complaints, Denies chest pain, Denies lightheadedness, Denies Loss of Consciousness and Denies dyspnea Respiratory: Respiratory: Reports no additional respiratory complaints and Denies dyspnea Gastrointestinal: Gastrointestinal: Reports no additional gastrointestinal complaints, Denies abdominal pain, Denies melena, Denies hematochezia, Denies change in bowel habits and Denies change in stool character Genitourinary: Genitourinary: Reports no additional male genitourinary complaints, Denies hematuria, Denies oliguria, Denies difficulty urinating, Denies dysuria, Denies urinary frequency, Denies urinary hesitancy, Denies urinary incontinence and Denies urinary urgency Musculoskeletal: Musculoskeletal: Reports no additional musculoskeletal complaints, Denies numbness and Denies tingling Neurologic: Denies dizziness, Reports headache(s), Denies loss of vision, Denies numbness and Denies tingling Psychiatric: Psychiatric: Reports no additional psychiatric complaints Endocrine: Endocrine: Reports no additional endocrine complaints Hematologic/Lymphatic: Hematologic/Lymphatic: Reports no additional hematologic/lymphatic complaints Allergic/Immunologic: Allergic/Immunologic: Reports no additional allergic/immunologic complaints PMFSH Past Medical History Attestation statement: The following information was validated with the patient. (all information validated with the patient's ) Source: old records reviewed, obtained from family (patient's provided additional history and confirmed the history provided by the patient) and nursing notes reviewed Medical History CHF (congestive heart failure) Preop exam for internal medicine Bilateral pleural effusion Pneumonia Physical deconditioning CKD (chronic kidney disease) stage 3, GFR 30-59 ml/min (HFpEF) heart failure with preserved ejection fraction Obesity (BMI 30-39.9) LARISSA (obstructive sleep apnea) PAF (paroxysmal atrial fibrillation) Type 2 diabetes mellitus with unspecified complications Peptic ulcer disease Non Hodgkin's lymphoma Anxiety and depression Hypercholesterolemia Vitamin D deficiency Obesity (BMI 30-39.9) Type 2 diabetes mellitus with hyperglycemia Thrombocytopenia Surgical History Hx of cataract extraction History of esophagogastroduodenoscopy (EGD) H/O colonoscopy H/O lymph node biopsy History of shoulder surgery Family History Family History Father Lung cancer Mother Breast cancer Sister Breast cancer Brother Substance use disorder Sister No problems noted. Son No problems noted. Daughter No problems noted. Social History Social History Household Members: Spouse and Children Housing: House Are you a primary overnight caregiver to a significant other at home: No Do you presently have visiting nurse or other home services: No Alcohol intake: never Patient Tobacco Use Status: Never used Tobacco e-Cigarette/Vaping Use: Never Used Second Hand Smoke Exposure: No Advance Directives: Yes Advance Directives on File: Yes Advance Directives Date on File: 12/19/21 Do you have a plan to hurt others: No Plan service: No Current occupational status: retired Cognitive needs: Yes (Walker, cane) Hearing needs: No Vision needs: Yes Physical Exam ED Vital Signs: Vital Signs - 24 hr 02/18/24 09:51 02/18/24 11:16 Temperature 98.6 F 98.6 F Pulse Rate 59 59 Respiratory Rate 20 20 Blood Pressure 160/94 H 160/94 H Pulse Oximetry 96 96 Oxygen Delivery Method Room Air Room Air BMI result Body Mass Index 30.2 Const General: cooperative, no acute distress, alert and awake Nutritional Appearance: well nourished Orientation/consciousness: patient oriented x3 Limitations: no limitations HENMT Other: Head: Yes atraumatic Ears: hearing grossly normal bilaterally and external ears normal General nose exam: Normal external nose present, no nasal discharge noted and no epistaxis Face and sinus: No abrasion and No laceration Mouth: Normal oral and palatal mucosa present, no drooling and no muffled voice Eyes Conjunctivae: conjunctivae normal Pupils: Equal, round and reactive pupils present EOM: EOMs intact bilaterally Neck Neck: Yes normal visual inspection, Yes full ROM and Yes no lymphadenopathy Chest Chest palpation & inspection: normal inspection of the chest Resp Effort & Inspection: normal respiratory effort and able to speak in complete sentences GI Inspection: Yes normal to inspection Neuro General: patient oriented x3 and moves all extremities Cranial nerves: Yes Equal, round and reactive pupils present Cognition (Neuro): normal cognition Extrem General: Yes normal to inspection, Yes full ROM and Yes capillary refill normal Psych Appearance: grossly normal Mental Status: mental status grossly normal Affect: normal affect Attitude: cooperative Thought process: Normal thought process present Thought content: Normal thought content present Insight: Good insight present (Psych) Medications Administered Discontinued Medications Generic Name Dose Route Start Last Admin Trade Name Rosa PRN Reason Stop Dose Admin Cephalexin HCl 500 mg 02/18/24 10:45 02/18/24 10:57 Cephalexin 500 Mg Capsule PO 02/18/24 10:46 500 mg ONCE ONE Administration Fluorescein Sodium 1 strip 02/18/24 10:45 02/18/24 10:57 Fluorescein Sodium Strip EYE-LEFT 02/18/24 10:46 1 strip ONCE ONE Administration Oxycodone HCl 5 mg 02/18/24 11:06 02/18/24 11:12 Oxycodone Hcl Immed Release 5 Mg Tablet PO 02/18/24 11:07 5 mg ONCE ONE Administration Tetracaine HCl 1 drop 02/18/24 10:46 02/18/24 10:57 Tetracaine Hcl/Pf 0.5% Oph Francie 4 Ml Drops EYE-LEFT 02/18/24 10:47 1 drop ONCE ONE Administration Valacyclovir HCl 1,000 mg 02/18/24 10:45 02/18/24 10:57 Valacyclovir Hcl 1,000 Mg Tablet PO 02/18/24 10:46 1,000 mg ONCE ONE Administration Medical Decision Making Medical Decision Making MDM Narrative: Patient is an 78 year old assigned male at with a history of a-fib, DM, PVD, rosacea, HTN, and CKD presenting to the emergency department today with worsening forehead pain and swelling. Patient's physical exam was as noted in the physical exam portion of this note. Patient's left eye was stained and examined with no abnormalities to the eye itself. Patient's blood work from 02/17/2024 showed a chronically elevated CR but was otherwise unremarkable. I consulted with my attending physician, Dr. Rajput, who recommended the patient being started on Valtrex PO 1g Q12 hours (renal dosing), covering with keflex, and having the patient follow up with Dr. Bernstein. I explained my physical exam findings to the patient and the patient's . I answered all questions asked by the patient and the patient's . I stressed the importance of the patient taking his medication as directed (either prescribed or as the over the counter packaging recommends). I stressed the importance of the patient following up with his primary care provider and Dr. Bernstein. I stressed the importance of the patient returning to the emergency department immediately if his symptoms were to worsen or if he were to develop any dizziness, shortness of breath, difficulty breathing, chest pain, blurry vision, loss of vision, nausea, vomiting, abdominal pain, fever, chills, back pain, or any other complaints. Patient and the patient's verbalized agreement and understanding with this treatment plan and discharge. Differential Diagnosis Differential Diagnoses: The differential diagnosis associated with the presentation includes Facial cellulitis Preseptal cellulitis Shingles Admission/Observation Consideration of admission/observation: Escalation of care including admission/observation considered Patient would have been admitted to the hospital had his work up had any findings where hospital admission was appropriate and his clinical presentation warranted hospital admission. Independent Historian Clinical information obtained from an independent historian. History obtained from or confirmed by: Spouse (patient's provided additional history and confirmed the history provided by the patient.) Prescription Management I considered prescription management with: Antiviral (patient prescribed valtrex) and Antibiotic (patient prescribed keflex) Chronic Conditions Patient?s care impacted by: Diabetes and Hypertension Discharge Plan Discharge Clinical Impression: Shingles, Cellulitis Patient Disposition: Home, Self-Care Instructions: Shingles (ED), Cellulitis (DC) Additional Instructions: STOP the Bactrim and start the Keflex. Follow up with your primary care provider and with Dr. Bernstein. Return to the emergency department immediately if your symptoms worsen or if you develop any dizziness, shortness of breath, difficulty breathing, chest pain, blurry vision, loss of vision, nausea, vomiting, abdominal pain, fever, chills, back pain, or any other complaints. Prescriptions: New cephalexin 500 mg capsule 500 mg PO Q6H 7 Days Qty: 28 0RF valacyclovir [Valtrex] 1 gram tablet 1,000 mg PO Q12H 7 Days Qty: 14 0RF oxycodone 5 mg tablet 5 mg PO Q8H PRN (Reason: pain) Qty: 7 0RF Rx Instructions: Partial Fill upon patient request. No Action metoprolol succinate 100 mg tablet extended release 24 hr 100 mg PO DAILY 90 Days Qty: 90 2RF ferrous sulfate 325 mg (65 mg iron) tablet 325 mg PO DAILY Qty: 90 0RF finasteride 5 mg tablet 5 mg PO DAILY 90 Days Qty: 90 3RF tamsulosin 0.4 mg capsule 0.4 mg PO BEDTIME 90 Days Qty: 90 1RF glipizide 5 mg tablet extended release 24hr 5 mg PO DAILY Qty: 90 2RF furosemide 40 mg tablet 40 mg PO DAILY Qty: 90 1RF escitalopram oxalate 10 mg tablet 10 mg PO DAILY Qty: 90 1RF atorvastatin 40 mg tablet 40 mg PO DAILY Qty: 90 2RF Eliquis 5 mg tablet 5 mg PO BID Qty: 180 3RF levothyroxine 100 mcg tablet 100 mcg PO DAILY@1100 90 Days Qty: 90 1RF cholecalciferol (vitamin D3) [Vitamin D3] 25 mcg (1,000 unit) Tablet 25 mcg PO DAILY nystatin 100,000 unit/gram Powder 1 appl topical TID 7 Days Qty: 60 1RF Protocol: Apply to: Apply to: Affected area (DME) Ultra-Light Rollator Misc See Rx Instructions .Route Qty: 1 0RF Rx Instructions: As directed multivitamin Tablet 1 tab PO DAILY sulfamethoxazole-trimethoprim 800-160 mg tablet 1 tab PO BID 10 Days Qty: 20 0RF metronidazole 1 % gel 1 appl topical BEDTIME Qty: 60 0RF ascorbic acid (vitamin C) 250 mg tablet 250 mg PO DAILY amiodarone 200 mg tablet 200 mg PO DAILY Rx Instructions: as directed Referrals: Zaid Bernstein [Physician] - Po,Carmen Joshi MD [Primary Care Provider] - Interventions: ED Discharge Assessment Last Done: 02/18/24 11:16 Discharge Date/Time: 02/18/24 11:17 Print Language: Tajik
[2024-02-18] MEDS: cephALEXin 500 MG CAPSULE PO (10:57)
[2024-02-18] MEDS: Tetracaine HCl/PF 0.5% Oph Sol 4 ML DROPS 1 DROP EYE-LEFT (10:57)
[2024-02-18] MEDS: Fluorescein Sodium STRIP 1 STRIP EYE-LEFT (10:57)
[2024-02-18] MEDS: valACYclovir HCL 1,000 MG TABLET 1000 MG PO (10:57)
--- NOTE | 2024-02-18 10:59 | PC.NURSE ---
pt medicated per provider order.
[2024-02-18] MEDS: oxyCODONE HCl Immed Release 5 MG TABLET PO (11:12)
--- NOTE | 2024-02-18 11:13 | PC.NURSE ---
pt verbalizing increase in pain. pt medicated per provider order. effectiveness pending.
[2024-02-18 11:16] VITALS: BP 160/94; PULSE 59; RESP 20; TEMP 37; O2SAT 96
== END 2024-02-18 11:17 | disposition home or self-care (01) ==
PROVIDERS: Emergency Provider Emergency Medicine; PCP Internal Medicine
DX: B02.9 Zoster without complications (principal); H00.034 Abscess of left upper eyelid; E11.22 Type 2 diabetes mellitus with diabetic chronic kidney disease; I12.9 Hypertensive chronic kidney disease with stage 1 through stage 4 chronic kidney disease, or unspecified chronic kidney disease; N18.9 Chronic kidney disease, unspecified
CPT/HCPCS: 99283

== ENCOUNTER 2024-03-28 11:46 | Outpatient (AMB) | payer MEDICARE, SELFPAY ==
--- NOTE | 2024-03-28 11:47 | AM.OFFWIN_ITS ---
Intake Vital Signs 03/28/24 11:49 Height 5 ft 5 in Weight 178 lb BMI 29.6 BP 116/74 Blood Pressure Location Rt brachial Position Sitting Pulse 55 Pulse Source Pulse Oximeter Temp 98.1 F Temp Source Oral Pulse Oximetry (%) 97 Oxygen Delivery Method Room Air Intake Visit Reasons: EP- LT side of head is numb Intake Note: pt c/o LT side head numbness. Started February 17. Patient Tobacco Use Status: Never used Tobacco Allergies amlodipine Adverse Reaction (Intermediate, Verified 03/28/24 11:47) leg swelling gabapentin Adverse Reaction (Intermediate, Verified 03/28/24 11:47) lethargy lisinopril Adverse Reaction (Intermediate, Verified 03/28/24 11:47) Cough metformin Adverse Reaction (Intermediate, Verified 03/28/24 11:47) lethargy Do you need a note to return to daycare/school/sports/work: No HPI HPI Comments History of Present Illness Details 78 y/o male patient who presents to the walk in clinic with c/o left eye pain associated with left sided temporal region headache. He was diagnosed with Shingles 5 weeks ago. He saw his eye doctor [facility] and was prescribed Abx back in February. Prior to that he was seen at [facility] and diagnosed with orbital cellulitis and shingles. He was prescribed Abx and Xaltrex. Today Pt reports no improvement despite all the medications he took. Today reports Facial swelling, vision changes and severe orbital pain radiating to his left sided scalp. There is mild tenderness and redness. [facility] Medical History CHF (congestive heart failure) Preop exam for internal medicine Bilateral pleural effusion Pneumonia Physical deconditioning CKD (chronic kidney disease) stage 3, GFR 30-59 ml/min (HFpEF) heart failure with preserved ejection fraction Obesity (BMI 30-39.9) LARISSA (obstructive sleep apnea) PAF (paroxysmal atrial fibrillation) Type 2 diabetes mellitus with unspecified complications Peptic ulcer disease Non Hodgkin's lymphoma Anxiety and depression Hypercholesterolemia Vitamin D deficiency Obesity (BMI 30-39.9) Type 2 diabetes mellitus with hyperglycemia Thrombocytopenia Surgical History Hx of cataract extraction History of esophagogastroduodenoscopy (EGD) H/O colonoscopy H/O lymph node biopsy History of shoulder surgery Family History Father Lung cancer Mother Breast cancer Sister Breast cancer Brother Substance use disorder Sister No problems noted. Son No problems noted. Daughter No problems noted. Social History Household Members: Spouse and Children Housing: House Are you a primary health care assistant to a significant other at home: No Do you presently have visiting nurse or other home services: No Alcohol intake: never Patient Tobacco Use Status: Never used Tobacco e-Cigarette/Vaping Use: Never Used Second Hand Smoke Exposure: No Advance Directives Date on File: 12/19/21 service: No Current occupational status: retired Cognitive needs: Yes (Walker, cane) Hearing needs: No Vision needs: Yes Review of Systems Const All systems reviewed & are unremarkable except as noted in HPI and below Physical Exam Vital Signs: Last Vital Signs Temp 98.1 F 03/28/24 11:49 Pulse 55 03/28/24 11:49 BP 116/74 03/28/24 11:49 Pulse Ox 97 03/28/24 11:49 Oxygen Delivery Method Room Air 03/28/24 11:49 BMI result Body Mass Index 29.6 Const General: cooperative Orientation/consciousness: patient oriented x3 HEENT Head: Yes normocephalic Ears: external ears normal General nose exam: Normal external nose present Face and sinus: Yes erythema and Yes Facial tenderness on exam of face and sinuses (Left orbital swelling and tenderness) Mouth: moist mucous membranes Throat: Yes posterior oropharynx normal Eyes Other: Left sided orbital swelling, upper eyelid swollen and redness. Eyelids: Yes eyelid abnormality (Swelling left upper eyelid redness and tender. ) Pupils: Equal, round and reactive pupils present EOM: EOMs intact bilaterally Neuro General: patient oriented x3, gait normal and moves all extremities Cranial nerves: Yes Equal, round and reactive pupils present Psych Speech and movement: Normal speech and movement present Assessment & Plan Assessment & Plan (1) Edema of left orbit: Code(s): H05.222 - Edema of left orbit Plan: Called [facility] and scheduled an appointment for him @ 320p Pt verbalized understanding and will go there as scheduled. Coding Level of Care Code Est Pt Level 3 (70249) Diagnoses Edema of left orbit H05.222 Time Spent (min) 15
[2024-03-28 11:49] VITALS: BP 116/74; PULSE 55; TEMP 36.7; O2SAT 97; BMI 29.6
== END 2024-03-28 12:55 | disposition home or self-care (01) ==
PROVIDERS: PCP Internal Medicine; Visit Provider Nurse Practitioner Family
DX: H05.222 Edema of left orbit (principal)
CPT/HCPCS: 99213

== ENCOUNTER 2024-03-31 08:54 | Outpatient (AMB) | payer MEDICARE, SELFPAY ==
--- NOTE | 2024-03-31 08:55 | MHC.PC.OV ---
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: No Accompanied by: Spouse Allergies amlodipine Adverse Reaction (Intermediate, Verified 03/31/24 08:59) leg swelling gabapentin Adverse Reaction (Intermediate, Verified 03/31/24 08:59) lethargy lisinopril Adverse Reaction (Intermediate, Verified 03/31/24 08:59) Cough metformin Adverse Reaction (Intermediate, Verified 03/31/24 08:59) lethargy Medication List - Last Reconciled 03/31/24 by Gaby Tinsley PA-C acetaminophen (Tylenol) 650 mg PO Q4H PRN amiodarone 200 mg PO DAILY 90 days apixaban (Eliquis) 5 mg PO BID ascorbic acid (vitamin C) 250 mg PO DAILY atorvastatin 40 mg PO DAILY cholecalciferol (vitamin D3) (Vitamin D3) 25 mcg PO DAILY escitalopram oxalate 10 mg PO DAILY ferrous sulfate 325 mg PO DAILY finasteride 5 mg PO DAILY 90 days furosemide 40 mg PO DAILY glipizide ER 5 mg PO DAILY levothyroxine 100 mcg PO DAILY@1100 90 days metoprolol succinate ER 100 mg PO DAILY 90 days multivitamin 1 tab PO DAILY nystatin 1 appl See Protocol topical TID 7 days tamsulosin 0.4 mg PO BEDTIME 90 days walker (Ultra-Light Rollator misc) As directed Tobacco use date assessed: 12/14/23 Fall risk assessment: No Falls in past year Last assessed Fall Risk: 03/31/24 Dental Screening Dental Screen Date: 12/14/23 HPI painful shingles sine 02/17 HPI Details 78-year-old overweight male with diabetes mellitus atrial fibrillation congestive heart failure hypothyroidism obstructive sleep apnea hypertension and hypercholesterolemia last seen by Dr. Peters 12/2023 coming in for acute problem. In review of the notes, patient was seen in walk in clinic 03/28/24 for edema of left eye and sent to eye doctor. Patient had shingles 5 weeks ago on the top of his scalp and on the left side of the face he has been evaluated twice by Ophthalmology and was given eye drops. Does continue to have facial pain despite resolution of the rash. He also mentions yesterday he had diarrhea with one episode of non bloody emesis. He is unsure if it was related to something he ate. No longer has any vomiting or abdominal pain and no fever. [facility] Medical History CHF (congestive heart failure) Preop exam for internal medicine Bilateral pleural effusion Pneumonia Physical deconditioning CKD (chronic kidney disease) stage 3, GFR 30-59 ml/min (HFpEF) heart failure with preserved ejection fraction Obesity (BMI 30-39.9) LARISSA (obstructive sleep apnea) PAF (paroxysmal atrial fibrillation) Type 2 diabetes mellitus with unspecified complications Peptic ulcer disease Non Hodgkin's lymphoma Anxiety and depression Hypercholesterolemia Vitamin D deficiency Obesity (BMI 30-39.9) Type 2 diabetes mellitus with hyperglycemia Thrombocytopenia Surgical History Hx of cataract extraction History of esophagogastroduodenoscopy (EGD) H/O colonoscopy H/O lymph node biopsy History of shoulder surgery Family History Father Lung cancer Mother Breast cancer Sister Breast cancer Brother Substance use disorder Sister No problems noted. Son No problems noted. Daughter No problems noted. Social History Household Members: Spouse and Children Housing: House Are you a primary senior care specialist to a significant other at home: No Do you presently have visiting nurse or other home services: No Alcohol intake: never Patient Tobacco Use Status: Never used Tobacco e-Cigarette/Vaping Use: Never Used Second Hand Smoke Exposure: No Advance Directives Date on File: 12/19/21 service: No Current occupational status: retired Cognitive needs: Yes (pricila Grant) Hearing needs: No Vision needs: Yes Questionnaire PHQ-9 Over the last 2 weeks, how often have you been bothered by any of the following problems? 1. Little interest or pleasure in doing things: nearly every day 2. Feeling down, depressed, or hopeless: more than half the days 3. Trouble falling or staying asleep, or sleeping too much: nearly every day 4. Feeling tired or having little energy: nearly every day 5. Poor appetite or overeating: nearly every day 6. Feeling bad about yourself - or that you are a failure or have let yourself or your family down: not at all 7. Trouble concentrating on things, such as reading the newspaper or watching television: nearly every day 8. Moving or speaking so slowly that other people could have noticed. Or the opposite - being so fidgety or restless that you have been moving around a lot more than usual: nearly every day 9. Thoughts that you would be better off or of hurting yourself in some way: not at all Total score: 20 Depression Screening Interpretation: Positive Depression Screening Done: Yes 44073 - PHQ-9 Billing: Yes Source: Developed by Drs. Simon Zhou, Latisha Huang, Ayo Rodríguez and colleagues, with an educational skye from [employer]. Thrive Questionnaire Date Thrive assessed: 12/14/23 AUDIT C Alcohol Use Questionnaire (AUDIT-C) 1. How often do you have a drink containing alcohol?: Never 2. How many drinks containing alcohol do you have on a typical day when you are drinking?: 1 or 2 3. How often do you have six or more drinks on one occasion?: Never Total Score: 0 Score Reviewed/Action Taken: No AIDAN-7 AMB Questionnaire AIDAN-7 Date AIDAN - 7 assessed: 12/14/23 Source: Developed by Drs. Simon Zhou, Latisha Huang, Ayo Rodríguez and colleagues, with an educational skye from [employer]. Review of Systems Const Denies body aches, Denies chills, Denies fever(s), Denies headache(s) and Denies poor appetite Eyes Reports no additional complaints ENT Denies headache(s) Card Denies chest pain, Denies syncope, Denies edema, Denies irregular heart rhythm, Denies lightheadedness and Denies dyspnea Resp Denies cough and Denies dyspnea GI Denies abdominal pain, Denies constipation, Denies diarrhea, Denies nausea and Denies vomiting Reports no additional complaints Musc Reports no additional complaints and Denies abnormal gait Skin/Breast Details: Patient no longer has any open vesicles and does have some crusting. Continues to have pain along the nerve distribution around the face and eye Neuro Denies abnormal gait, Denies syncope and Denies headache(s) Psych Reports no additional complaints Physical exam (Primary Care) Vital Signs: Last Vital Signs Pulse 57 03/31/24 08:56 BP 142/82 H 03/31/24 08:56 Pulse Ox 96 03/31/24 08:56 Oxygen Delivery Method Room Air 03/31/24 08:56 BMI result Body Mass Index 29.3 Tobacco/Smoking Status: Tobacco use Status Tobacco use date assessed 12/14/23 03/31/24 08:55 Patient Tobacco Use Status Never used Tobacco 03/31/24 08:55 e-Cigarette/Vaping Use Never Used 03/31/24 08:55 PHQ-9: PHQ-9 Score PHQ-9: Total score 20 03/31/24 09:02 Depression Screening Interpretation: Positive Thrive Assessment: Date of Thrive Assessment Date Thrive assessed 12/14/23 03/31/24 08:55 Const General: cooperative, healthy appearing, comfortable and no acute distress Orientation/consciousness: patient oriented x3 HENMT Other: Scattered vesicular crusting on forehead and pain to palpation over forehead and scalp. Head: Yes normocephalic Ears: hearing grossly normal bilaterally General nose exam: Normal external nose present Eyes General: appearance normal, both eyes and all related structures Conjunctivae: conjunctivae normal Neck Neck: Yes full ROM and Yes no lymphadenopathy Resp Effort & Inspection: normal respiratory effort Auscultation: clear to auscultation bilaterally, no crackles, no rales, no rhonchi and no wheezes Cardio Rate: regular rate Rhythm: regular rhythm Skin General skin exam: no rashes or lesions noted Neuro General: patient oriented x3 Gait exam (Neuro): Normal gait present Extrem General: Yes normal to inspection, Yes full ROM and No edema Psych Affect: normal affect Attitude: cooperative Insight: Good insight present (Psych) Judgement: Good judgement present (Psych) Assessment and Plan Assessment & Plan (1) Nausea: Code(s): R11.0 - Nausea Plan: Patient had 1 episode of nausea and vomiting with 2 episodes of diarrhea in his concerned he may have COVID. Test was placed today and was negative. (2) Shingles: Code(s): B02.9 - Zoster without complications Plan: Patient no longer has active herpes zoster lesions but does continue to have nerve pain. He has an aversion to gabapentin and has tried this in the past for nerve pain with no relief. He has been evaluated by the eye doctor for pain around the eye on 2 separate occasions. We will send pregabalin to pharmacy for nerve pain in discussed with patient potential side effects. Advised patient to follow up if symptoms worsen or do not improve. Calculated GFR using Cockcroft-Gault equation which was estimated at 42 and dose will be adjusted based on this value. Plan This note was constructed using voice recognition software. While every effort has been made to ensure accuracy and physical therapist assistant, still areas may have been included sometimes these areas may affect the content or meeting of the given symptoms. Total time spent caring for the patient today was 30 minutes. This includes time spent before the visit reviewing the chart, time spent during the visit, and time spent after the visit and documentation. Orders: Orders COVID-19 ID NOW ([place]) Today R51.9 - Headache, unspecified Medications: New pregabalin 25 mg PO BID 20 caps 0RF Coding Level of Care Code Est Pt Level 3 (79204) Diagnoses Nausea R11.0 Shingles B02.9
[2024-03-31 08:56] VITALS: BP 142/82; PULSE 57; O2SAT 96; BMI 29.3
== END 2024-03-31 09:23 | disposition home or self-care (01) ==
PROVIDERS: PCP Internal Medicine
DX: R11.0 Nausea (principal); B02.9 Zoster without complications
CPT/HCPCS: 99213

== ENCOUNTER 2024-03-31 09:28 | Outpatient (REF) | payer MEDICARE, SELFPAY ==
[2024-03-31 10:24] LABS: COVID-19 Test Negative (Negative); IDNOW Serial# 152EDE1D
== END 2024-03-31 09:29 | disposition home or self-care (01) ==
LOC: HO.LAB 09:28
PROVIDERS: PCP Internal Medicine
DX: R51.9 Headache, unspecified (principal)
CPT/HCPCS: 87635

== ENCOUNTER 2024-04-06 09:45 | Outpatient (AMB) | payer MEDICARE, SELFPAY ==
--- NOTE | 2024-04-06 10:00 | MHC.OFFVIS ---
Intake Visit Reasons: 6m/PVR Intake Note: Patient is Present for PVR/ Urology Med: Tamsulosin, Finasteride Antibiotic Allergy: None Blood Thinner: Eliquis Last PVR: 0 Todays PVR: 41 Ict Systems Test Engineer Required: No Assistant Chief Engineer: Assistant Chief Engineer Present Accompanied by: Spouse Allergies amlodipine Adverse Reaction (Intermediate, Verified 04/06/24 10:16) leg swelling gabapentin Adverse Reaction (Intermediate, Verified 04/06/24 10:16) lethargy lisinopril Adverse Reaction (Intermediate, Verified 04/06/24 10:16) Cough metformin Adverse Reaction (Intermediate, Verified 04/06/24 10:16) lethargy HPI Comments Details: Augustus is a very pleasant male. He is a patient of Dr. Peters. He seen for the following urologic conditions - urinary retention - erectile dysfunction Six-month follow-up PVR remains low 40 cc Still reports significant weakness of stream Will stop finasteride and trial bethanechol Cystoscopy - higher bladder neck, short prostate grade 2 trabeculation Lower urinary tract symptoms Combination therapy finasteride and tamsulosin Prior bladder ultrasound 30 g gland Urinary retention Prior episode seen emergency room Rincon catheter placed for 1400 cc Had history of progressive weakness of stream PFSH Medical History CHF (congestive heart failure) Preop exam for internal medicine Bilateral pleural effusion Pneumonia Physical deconditioning CKD (chronic kidney disease) stage 3, GFR 30-59 ml/min (HFpEF) heart failure with preserved ejection fraction Obesity (BMI 30-39.9) LARISSA (obstructive sleep apnea) PAF (paroxysmal atrial fibrillation) Type 2 diabetes mellitus with unspecified complications Peptic ulcer disease Non Hodgkin's lymphoma Anxiety and depression Hypercholesterolemia Vitamin D deficiency Obesity (BMI 30-39.9) Type 2 diabetes mellitus with hyperglycemia Thrombocytopenia Surgical History Hx of cataract extraction History of esophagogastroduodenoscopy (EGD) H/O colonoscopy H/O lymph node biopsy History of shoulder surgery Family History Father Lung cancer Mother Breast cancer Sister Breast cancer Brother Substance use disorder Sister No problems noted. Son No problems noted. Daughter No problems noted. Social History Household Members: Spouse and Children Housing: House Are you a primary career technical education teacher to a significant other at home: No Do you presently have visiting nurse or other home services: No Alcohol intake: never Patient Tobacco Use Status: Never used Tobacco e-Cigarette/Vaping Use: Never Used Second Hand Smoke Exposure: No Advance Directives Date on File: 12/19/21 service: No Current occupational status: retired Cognitive needs: Yes (Walker, cane) Hearing needs: No Vision needs: Yes Review of Systems Const Denies chills and Denies fever(s) Card Reports no additional complaints and Denies syncope Resp Denies cough GI Denies abdominal pain and Denies heartburn Reports as per HPI and Denies change in libido Neuro Denies syncope Psych Denies change in libido Endo Denies change in libido Physical Exam Const General: cooperative, healthy appearing, comfortable and no acute distress Orientation/consciousness: patient oriented x3 HEENT Face and sinus: Yes normal facial exam Mouth: moist mucous membranes Neck Neck: Yes normal visual inspection, Yes full ROM and Yes trachea midline Chest Chest palpation & inspection: normal inspection of the chest Resp Effort & Inspection: normal respiratory effort, able to speak in complete sentences and no respiratory distress GI Inspection: Yes normal to inspection Back/Spine/Pelvis Cervical Spine: normal cervical lordosis Thoracic/Lumbar Spine: thoracic and lumbar spine normal to inspection Skin General skin exam: no rashes or lesions noted Neuro General: patient oriented x3, gait normal, tone normal and moves all extremities Extrem General: Yes normal to inspection and Yes capillary refill normal Office Procedures Post Void Residual Post Residual Void Post Void Residual (PVR): 41 [id number]-[id number] Void Residual by ultrasound Assessment & Plan Assessment & Plan (1) Weak urinary stream: Code(s): R39.12 - Poor urinary stream Category: Medical (2) Incomplete emptying of bladder due to benign prostatic hyperplasia: Code(s): N40.1 - Benign prostatic hyperplasia with lower urinary tract symptoms; R33.9 - Retention of urine, unspecified Category: Medical Plan Two month follow-up tele Trial bethanechol Orders: Orders AMB Post Void Residual by ultrasound Today N40.1 - Benign prostatic hyperplasia with lower urinary tract symptoms, R33.9 - Retention of urine, unspecified Medications: New bethanechol chloride 50 mg PO BID 30 days 60 tabs 1RF N39.0 - Urinary tract infection, site not specified, N40.1 - Benign prostatic hyperplasia with lower urinary tract symptoms, R33.9 - Retention of urine, unspecified Discontinued finasteride Discontinued Reason: Patient Completed Course 5 mg PO DAILY 90 days 90 tabs 3RF N13.8 - Other obstructive and reflux uropathy, N40.1 - Benign prostatic hyperplasia with lower urinary tract symptoms, R33.9 - Retention of urine, unspecified Patient Instructions: Imaging studies, laboratory and physical exam results were discussed and reviewed in detail. No major barriers to patient understanding were identified. An opportunity to ask questions regarding the treatment plan was provided. All questions were answered. The patient expressed understanding and agreement with the above treatment plan. The patient is aware they should contact our office by phone for worsening of their current condition or the appearance of new urologic symptoms. Compliance is encouraged with any medications and followup testing that is ordered. It is a privilege to participate in the urologic care of your patient. If you have any questions or concerns regarding treatment for the above conditions, or other urologic issues, please do not hesitate to contact me. The office telephone contact is [phone]. This note is constructed using voice recognition software. While every effort has been made to ensure accuracy refinery superintendent errors may have been included. Yours sincerely, Dr Satinder Perez MD, [facility] Urology Providers of Expert, Compassionate Care for the Genitourinary System Coding Level of Care Code Est Pt Level 4 (54238) Diagnoses Weak urinary stream R39.12 Incomplete emptying of bladder due to benign prostatic hyperplasia N40.1; R33.9 CPT Codes Post Residual Void - PVR CPT Code: 42313-Jeql Void Residual by ultrasound ([id number])
== END 2024-04-06 10:34 | disposition home or self-care (01) ==
PROVIDERS: PCP Internal Medicine; Visit Provider Urology
DX: N40.1 Benign prostatic hyperplasia with lower urinary tract symptoms (principal); R39.12 Poor urinary stream; R33.9 Retention of urine, unspecified
CPT/HCPCS: 99214

== ENCOUNTER → 2024-04-06 09:45 | Outpatient (BNVA) | payer MEDICARE, SELFPAY | PROVIDERS: PCP Internal Medicine; Visit Provider Urology | DX: N40.1 Benign prostatic hyperplasia with lower urinary tract symptoms (principal); N13.8 Other obstructive and reflux uropathy; R33.9 Retention of urine, unspecified; N52.9 Male erectile dysfunction, unspecified; R39.12 Poor urinary stream | CPT/HCPCS: 51798; 99212 ==

== ENCOUNTER 2024-05-03 08:10 | Outpatient (REF) | payer MEDICARE, SELFPAY ==
[2024-05-03 08:29] LABS: MANUAL DIFF FLAG NO
[2024-05-03 09:32] LABS: Basophils Percent Auto 0.5 % (0-2); Eosinophils Absolute Auto 0.1 X10*3/uL (0.0-0.4); Eosinophils Percent Auto 2.1 % (0-4); Hematocrit 35.8 % (42.0-52.0); Hemoglobin 11.7 g/dl (14.0-18.0); Imm Gran Abs Auto 0.06 X10*3/uL (0.00-0.03); Imm Gran Pct Auto 0.9 % (0.0-0.4); Lymphocytes Absolute Auto 1.3 X10*3/uL (1.2-4.9); Lymphocytes Percent Auto 19.2 % (20-40); Mean Corpuscular HGB Conc 32.7 g/dl (31.0-36.0); Mean Corpuscular Hemoglobin 28.1 pg (27.0-33.0); Mean Corpuscular Volume 85.9 fL (80.0-98.0); Monocytes Absolute Auto 0.7 X10*3/uL (0.1-1.2); Monocytes Percent Auto 9.8 % (2-11); Neutrophils Absolute Auto 4.5 x10*3/uL (2.0-8.3); Neutrophils Percent Auto 67.5 % (45-73); Platelet Count 187 X10*3/uL (160-400); Red Blood Count 4.17 X10*6/uL (4.60-5.80); Red Cell Distribution Width 15.4 % (11.0-16.0); Retic HGB Equivalent 29.9 pg (30.0-35.0); Reticulocyte Percent 3.3 % (0.5-1.8); Reticulocytes Absolute 0.137 X10*6/uL (0.026-0.095); White Blood Count 6.6 X10*3/uL (4.8-10.8)
[2024-05-03 09:59] LABS: B Type Natriuretic Peptide 322 pg/mL (<100)
[2024-05-03 10:05] LABS: Alanine Aminotransferase 36 U/L (0-40); Albumin Level 3.9 g/dL (3.5-5.0); Alkaline Phosphatase 102 U/L (39-117); Anion Gap 12 (12-20); Aspartate Amino Transferase 42 U/L (5-37); Bilirubin Total 0.8 mg/dL (0.0-1.0); Blood Urea Nitrogen 25 mg/dL (9-16); Calcium 9.7 mg/dL (8.4-10.2); Carbon Dioxide 30 mmol/L (22-29); Chloride 102 mmol/L (96-108); Cholesterol 132 mg/dL (<200); Estimated Glomerular Filt Rate 40; Glucose Random 140 mg/dL (60-115); HDL Cholesterol 34 mg/dL (>40); Iron 79 mcg/dL (45-160); LDL Cholesterol Calculated 77 mg/dL (<100); Percent Iron Saturation 30 % (15-50); Potassium 4.8 mmol/L (3.3-5.1); Sodium 139 mmol/L (135-145); Total Iron Binding Capacity 262 mcg/dL (228-428); Triglycerides 106 mg/dL (<150); Unsaturated Iron Binding 183 ug/dL
[2024-05-03 10:26] LABS: Ferritin 199 ng/mL (20-250); Free T4 (Free Thyroxine) 1.11 ng/dL (0.71-1.85); Thyroid Stimulating Hormone 5.19 uIU/mL (0.32-4.0)
[2024-05-03 10:30] LABS: Vitamin B12 469 pg/mL (200-900)
[2024-05-03 10:58] LABS: Creatinine Urine 45.06 mg/dL
== END 2024-05-03 08:11 | disposition home or self-care (01) ==
LOC: HO.LAB 08:10
PROVIDERS: PCP Internal Medicine; Visit Provider Internal Medicine
DX: I50.32 Chronic diastolic (congestive) heart failure (principal); E11.65 Type 2 diabetes mellitus with hyperglycemia; E78.00 Pure hypercholesterolemia, unspecified; E03.9 Hypothyroidism, unspecified
CPT/HCPCS: 36415; 80053; 80061; 82570; 82607; 82728; 82746; 83540; 83880; 84439; 84443; 85025; 85045

== ENCOUNTER 2024-05-04 10:32 | Outpatient (AMB) | payer MEDICARE, SELFPAY ==
[2024-05-04 10:39] VITALS: BP 140/72; PULSE 62; O2SAT 95; BMI 30.1
--- NOTE | 2024-05-04 10:39 | MHC.PC.OV ---
Vital Signs 05/04/24 10:39 Height 5 ft 5 in Weight 181 lb BMI 30.1 BP 140/72 H Blood Pressure Location Lt brachial Position Sitting Pulse 62 Pulse Source Pulse Oximeter Pulse Oximetry (%) 95 Oxygen Delivery Method Room Air Intake Visit Reasons: A-FIB Disability Hearing Officer Required: No Accompanied by: Spouse Allergies amlodipine Adverse Reaction (Intermediate, Verified 05/04/24 10:40) leg swelling gabapentin Adverse Reaction (Intermediate, Verified 05/04/24 10:40) lethargy lisinopril Adverse Reaction (Intermediate, Verified 05/04/24 10:40) Cough metformin Adverse Reaction (Intermediate, Verified 05/04/24 10:40) lethargy Tobacco use date assessed: 12/14/23 Fall risk assessment: No Falls in past year Last assessed Fall Risk: 05/04/24 Dental Screening Dental Screen Date: 05/04/24 Did you have a dental visit in the last 12 months?: Yes Did you have a dental problem in the last 6 months where you did not have access to dental care?: No Was dental information given to patient?: Patient has dentist HPI A-FIB HPI Details 78-year-old obese male with multiple medical problems hypercholesterolemia hypertension with cognitive impairment congestive heart failure obstructive sleep apnea hypothyroidism diabetes mellitus depression coming in for follow-up. Last seen in March 31 for nausea and shingles patient follows up with urology on tamsulosin and finasteride for urinary retention erectile dysfunction. PVR 40 cc advised to stop finasteride and trial of bethanechol. February notes left side facial pain with swelling that is when the diagnosis of shingles. Cephalexin prescribed as well as valacyclovir. Patient has seen Cardiology also in December for the atrial fibrillation and congestive heart failure placed on amiodarone has had history of cardioversion before remains on amiodarone and anticoagulation. Patient has not been using the CPAP as patient has lost a lot a weight.problem L eye cannot see clear. Discussed with the patient that the pain may last for years. Patient has been started on pregabalin and will increase the dose to help with the pain. Meanwhile will be seeing the kitchen utility associate. Meanwhile for thyroid noted TSH to be elevated and so will increase the Synthroid 1 pill per week. As for cholesterol because of CAD will increase Lipitor to 80 mg once a day. Blood work requested for thyroid in 6 weeks and cholesterol in 3 months. [facility] Medical History CHF (congestive heart failure) Preop exam for internal medicine Bilateral pleural effusion Pneumonia Physical deconditioning CKD (chronic kidney disease) stage 3, GFR 30-59 ml/min (HFpEF) heart failure with preserved ejection fraction Obesity (BMI 30-39.9) LARISSA (obstructive sleep apnea) PAF (paroxysmal atrial fibrillation) Type 2 diabetes mellitus with unspecified complications Peptic ulcer disease Non Hodgkin's lymphoma Anxiety and depression Hypercholesterolemia Vitamin D deficiency Obesity (BMI 30-39.9) Type 2 diabetes mellitus with hyperglycemia Thrombocytopenia Surgical History Hx of cataract extraction History of esophagogastroduodenoscopy (EGD) H/O colonoscopy H/O lymph node biopsy History of shoulder surgery Family History Father Lung cancer Mother Breast cancer Sister Breast cancer Brother Substance use disorder Sister No problems noted. Son No problems noted. Daughter No problems noted. Social History Household Members: Spouse and Children Housing: House Are you a primary career information specialist to a significant other at home: No Do you presently have visiting nurse or other home services: No Alcohol intake: never Patient Tobacco Use Status: Never used Tobacco e-Cigarette/Vaping Use: Never Used Second Hand Smoke Exposure: No Advance Directives Date on File: 12/19/21 service: No Current occupational status: retired Cognitive needs: Yes (pricila Grant) Hearing needs: No Vision needs: Yes Questionnaire Thrive Questionnaire Date Thrive assessed: 12/14/23 Are you currently unemployed and looking for a job?: No AUDIT C Alcohol Use Questionnaire (AUDIT-C) 3. How often do you have six or more drinks on one occasion?: Never Total Score: 0 AIDAN-7 AMB Questionnaire AIDAN-7 Date AIDAN - 7 assessed: 12/14/23 Source: Developed by Drs. Simon Zhou, Latisha Huang, Ayo Rodríguez and colleagues, with an educational skye from [employer]. Physical exam (Primary Care) Vital Signs: Last Vital Signs Pulse 62 05/04/24 10:39 BP 140/72 H 05/04/24 10:39 Pulse Ox 95 05/04/24 10:39 Oxygen Delivery Method Room Air 05/04/24 10:39 BMI result Body Mass Index 30.1 Tobacco/Smoking Status: Tobacco use Status Tobacco use date assessed 12/14/23 05/04/24 10:43 Patient Tobacco Use Status Never used Tobacco 05/04/24 10:43 e-Cigarette/Vaping Use Never Used 05/04/24 10:43 Thrive Assessment: Date of Thrive Assessment Date Thrive assessed 12/14/23 05/04/24 10:43 Const General: alert; No acute distress Eyes Conjunctivae: conjunctivae normal Resp Auscultation: clear to auscultation bilaterally GI Inspection: Yes normal to inspection Extrem General: Yes normal to inspection and No edema Assessment and Plan Assessment & Plan (1) PAF (paroxysmal atrial fibrillation): Comment: Cardioversion 12/04/2021 Code(s): I48.0 - Paroxysmal atrial fibrillation Plan: Patient follows up with Cardiology continuing with amiodarone and anticoagulation with Eliquis (2) Type 2 diabetes mellitus with hyperglycemia: Comment: dx ~ 2014-does not check glucose at home Code(s): E11.65 - Type 2 diabetes mellitus with hyperglycemia Qualifiers: Diabetes mellitus care home insulin use: without care home use Qualified Code(s): E11.65 - Type 2 diabetes mellitus with hyperglycemia Plan: Decrease the amount of carbohydrate intake, pasta, bread, rice and potatoes are all sugar and that is aside from all the sweet stuff, remember that fruits are good but they are Sweet also. Hemoglobin A1c goal of less than 7.0 on glipizide 5 mg once a day (3) Hypothyroid: Code(s): E03.9 - Hypothyroidism, unspecified Plan: Presently on levothyroxine at 100 mcg once a day (4) LARISSA (obstructive sleep apnea): Comment: PATIENT HAS HISTORY OF OBSTRUCTIVE SLEEP APNEA AND USED TO BE ON CPAP REGULARLY. SINCE THE LAST YEAR HE HAS NOT USED CPAP AT ALL AND CLAIMS THAT HE IS SLEEPING BETTER. I THINK DUE TO SIGNIFICANT WEIGHT REDUCTION, HIS LARISSA HAS RESOLVED. Code(s): G47.33 - Obstructive sleep apnea (adult) (pediatric) Plan: Since patient has lost weight has stopped using CPAP (5) Chronic heart failure with preserved ejection fraction (HFpEF): Code(s): I50.32 - Chronic diastolic (congestive) heart failure Plan: Continue with furosemide 40 mg once a day advised to get blood work every 3 months (6) Hypercholesterolemia: Code(s): E78.00 - Pure hypercholesterolemia, unspecified Plan: Avoid fried foods, chicken skin, eggs, butter margarine, pastries and meat. Be it pork or beef they have a lot of cholesterol LDL goal of less than 70 on atorvastatin 40 mg once (7) Essential hypertension: Code(s): I10 - Essential (primary) hypertension Plan: Continue with metoprolol 100 mg once a day (8) Incomplete emptying of bladder due to benign prostatic hyperplasia: Code(s): N40.1 - Benign prostatic hyperplasia with lower urinary tract symptoms; R33.9 - Retention of urine, unspecified Plan: Follows up with urology and has been placed on tamsulosin and bethanechol (9) Shingles: Comment: nasocilaiary L side 02/2024 with post herpetic neuralgia (04/2024) Code(s): B02.9 - Zoster without complications Orders: Orders Thyroid Stimulating Hormone 6 Weeks E03.9 - Hypothyroidism, unspecified Comprehensive Met. Panel 3 Months E78.00 - Pure hypercholesterolemia, unspecified Complete Blood Count Auto Diff 3 Months E78.00 - Pure hypercholesterolemia, unspecified B Type Natriuretic Peptide 3 Months I50.32 - Chronic diastolic (congestive) heart failure Free T4 (Free Thyroxine) 6 Weeks E03.9 - Hypothyroidism, unspecified Lipid Panel 3 Months E78.00 - Pure hypercholesterolemia, unspecified Medications: Changed From pregabalin 25 mg PO BID 60 caps 0RF B02.9 - Zoster without complications To pregabalin 50 mg PO BID 180 caps 1RF B02.9 - Zoster without complications From levothyroxine 100 mcg PO DAILY@1100 90 days 90 tabs 1RF E03.9 - Hypothyroidism, unspecified To levothyroxine once a day except for wednesday take 2 tablets 100 mcg PO DAILY@1100 90 days 90 tabs 1RF E03.9 - Hypothyroidism, unspecified From atorvastatin 40 mg PO DAILY 90 tabs 2RF E78.00 - Pure hypercholesterolemia, unspecified To atorvastatin 80 mg PO DAILY 90 days 90 tabs 2RF E78.00 - Pure hypercholesterolemia, unspecified Coding Level of Care Code Est Pt Level 4 (24624) Complex EM visit Add On G2211 Diagnoses PAF (paroxysmal atrial fibrillation) I48.0 Type 2 diabetes mellitus with hyperglycemia, without long-term current use of insulin E11.65 Diabetes mellitus care home insulin use: without care home use Hypothyroid E03.9 LARISSA (obstructive sleep apnea) G47.33 Chronic heart failure with preserved ejection fraction (HFpEF) I50.32 Hypercholesterolemia E78.00 Essential hypertension I10 Incomplete emptying of bladder due to benign prostatic hyperplasia N40.1; R33.9 Shingles B02.9
== END 2024-05-04 11:20 | disposition home or self-care (01) ==
PROVIDERS: PCP Internal Medicine; Visit Provider Internal Medicine
DX: I48.0 Paroxysmal atrial fibrillation (principal); E11.65 Type 2 diabetes mellitus with hyperglycemia; I50.32 Chronic diastolic (congestive) heart failure; E03.9 Hypothyroidism, unspecified; G47.33 Obstructive sleep apnea (adult) (pediatric); E78.00 Pure hypercholesterolemia, unspecified; I10 Essential (primary) hypertension; N40.1 Benign prostatic hyperplasia with lower urinary tract symptoms; R33.9 Retention of urine, unspecified; B02.9 Zoster without complications

== ENCOUNTER → 2024-05-04 10:32 | Outpatient (BNVA) | payer MEDICARE, SELFPAY | PROVIDERS: PCP Internal Medicine; Visit Provider Internal Medicine | DX: I48.0 Paroxysmal atrial fibrillation (principal); E11.65 Type 2 diabetes mellitus with hyperglycemia; E03.9 Hypothyroidism, unspecified | CPT/HCPCS: 99212 ==

== ENCOUNTER 2024-05-11 10:02 | Outpatient (REF) | payer MEDICARE, SELFPAY ==
--- NOTE | ~2024-05-11 | XR_ITS ---
EXAMINATION: XR CHEST CLINICAL INFORMATION: Cough. COMPARISON: Most recent chest radiograph dated 10/25/2023. TECHNIQUE: 2 views of the chest were obtained. FINDINGS: Diffuse interstitial prominence is redemonstrated with patchy left lower lobe opacities which appear similar when compared to the prior chest radiograph. No new airspace consolidation. No pleural effusion or pneumothorax. Stable cardiomediastinal silhouette. XR/XR chest 2V IMPRESSION: Diffuse interstitial prominence with patchy left lower lobe opacities, similar when compared to the prior chest radiograph. No new airspace consolidation. Electronically signed by: Francisco Rojas MD 05/11/2024 11:41 AM EDT
== END 2024-05-11 10:03 | disposition home or self-care (01) ==
LOC: HO.XRAY 10:02
PROVIDERS: PCP Internal Medicine; Visit Provider Internal Medicine
DX: R05.1 Acute cough (principal); J98.4 Other disorders of lung; G47.33 Obstructive sleep apnea (adult) (pediatric); R06.02 Shortness of breath
CPT/HCPCS: 71046; 99212

== ENCOUNTER 2024-05-11 10:02 | Outpatient (AMB) | payer MEDICARE, SELFPAY ==
[2024-05-11 10:07] VITALS: BP 140/60; PULSE 58; O2SAT 96; BMI 30.8
--- NOTE | 2024-05-11 10:07 | A.OFFVIS_ITS ---
Vital Signs 05/11/24 10:07 Height 5 ft 5 in Weight 185 lb 3.013 oz BMI 30.8 BP 140/60 H Blood Pressure Location Lt brachial Position Sitting Pulse 58 Pulse Source Pulse Oximeter Pulse Oximetry (%) 96 Oxygen Delivery Method Room Air Intake Visit Reasons: Dyspnea Intake Note: pt is here for follow up and states he has gained his weight back, and he feels like he is not getting enough air at night, but he is suffering from shingles near the eye. Ring Maker Required: No Allergies amlodipine Adverse Reaction (Intermediate, Verified 05/11/24 10:33) leg swelling gabapentin Adverse Reaction (Intermediate, Verified 05/11/24 10:33) lethargy lisinopril Adverse Reaction (Intermediate, Verified 05/11/24 10:33) Cough metformin Adverse Reaction (Intermediate, Verified 05/11/24 10:33) lethargy Medication List - Last Reconciled 05/11/24 by Caitlin Mcduffie MD acetaminophen (Tylenol) 650 mg PO Q4H PRN amiodarone 200 mg PO DAILY 90 days apixaban (Eliquis) 5 mg PO BID ascorbic acid (vitamin C) 250 mg PO DAILY atorvastatin 80 mg PO DAILY 90 days bethanechol chloride 50 mg PO BID 30 days cholecalciferol (vitamin D3) (Vitamin D3) 25 mcg PO DAILY escitalopram oxalate 10 mg PO DAILY ferrous sulfate 325 mg PO DAILY furosemide 40 mg PO DAILY glipizide ER 5 mg PO DAILY levothyroxine 100 mcg PO DAILY@1100 90 days metoprolol succinate ER 100 mg PO DAILY 90 days multivitamin 1 tab PO DAILY nystatin 1 appl See Protocol topical TID 7 days pregabalin 50 mg PO BID tamsulosin 0.4 mg PO BEDTIME 90 days walker (Ultra-Light Rollator mis) As directed Do you need a note to return to daycare/school/sports/work: No HPI HPI Dyspnea: Details: THIS 78 YEARS OLD VERY PLEASANT GENTLEMAN IS BEING SEEN FOR FOLLOW-UP. HE HAS HISTORY OF OBSTRUCTIVE SLEEP APNEA AND WAS USING CPAP THERAPY BUT STOPPED USING IT SINCE LAST YEAR. HE HAS PUT ON ABOUT 3-4 LB OF WEIGHT. COMPLAINS OF WAKING UP A FEW TIMES DUE TO GASPING LIKE FEELING, AND IS NOT GETTING GOOD SLEEP ACCORDING TO THE IS SNORING IS STILL MINIMAL. PATIENT AND HIS DO THINK THAT HE IS GETTING SYMPTOMS OF SLEEP APNEA AGAIN. HE SUFFERED FROM HERPES ZOSTER IN LEFT TEMPORAL AREA, SOMETIME AGO AND STILL CONTINUES TO HAVE SOME DISCOMFORT ON THE LEFT SIDE OF THE FACE ESPECIALLY AROUND THE LEFT EYE. HE HAS PTOSIS OF THE UPPER EYELID AND IS WAITING TO HAVE A SURGICAL PROCEDURE. FEELS TIRED AND SOMEWHAT SLEEPY DURING THE DAYTIME. HE CONTINUES TO HAVE FREQUENT COUGH AND ALSO HAS INCREASED SHORTNESS OF BREATH ON EXERTION. HOWEVER HE HAS NO EDEMA OF THE LEGS, AND CONGESTIVE HEART FAILURE SEEMS TO BE UNDER CONTROL. [facility] Medical History Shingles CHF (congestive heart failure) Preop exam for internal medicine Bilateral pleural effusion Pneumonia Physical deconditioning CKD (chronic kidney disease) stage 3, GFR 30-59 ml/min (HFpEF) heart failure with preserved ejection fraction Obesity (BMI 30-39.9) LARISSA (obstructive sleep apnea) PAF (paroxysmal atrial fibrillation) Type 2 diabetes mellitus with unspecified complications Peptic ulcer disease Non Hodgkin's lymphoma Anxiety and depression Hypercholesterolemia Vitamin D deficiency Obesity (BMI 30-39.9) Type 2 diabetes mellitus with hyperglycemia Thrombocytopenia Surgical History Hx of cataract extraction History of esophagogastroduodenoscopy (EGD) H/O colonoscopy H/O lymph node biopsy History of shoulder surgery Family History Father Lung cancer Mother Breast cancer Sister Breast cancer Brother Substance use disorder Sister No problems noted. Son No problems noted. Daughter No problems noted. Social History Household Members: Spouse and Children Housing: House Are you a primary home health aide caregiver to a significant other at home: No Do you presently have visiting nurse or other home services: No Alcohol intake: never Patient Tobacco Use Status: Never used Tobacco e-Cigarette/Vaping Use: Never Used Second Hand Smoke Exposure: No Advance Directives Date on File: 12/19/21 service: No Current occupational status: retired Cognitive needs: Yes (Walker, cane) Hearing needs: No Vision needs: Yes Review of Systems Const All systems reviewed & are unremarkable except as noted in HPI and below Reports snoring Eyes Reports no additional complaints ENT Reports no additional complaints Card Reports irregular heart rhythm and Reports dyspnea on exertion Resp Denies cough, Reports dyspnea on exertion, Reports snoring and Denies wheezing GI Reports no additional complaints Reports nocturia Musc Reports no additional complaints Skin/Breast Reports system reviewed and no additional complaints, except as documented Neuro Reports no additional complaints Psych Reports no additional complaints Aller/Immun Denies wheezing Physical Exam Vital Signs: Last Vital Signs Pulse 58 05/11/24 10:07 BP 140/60 H 05/11/24 10:07 Pulse Ox 96 05/11/24 10:07 Oxygen Delivery Method Room Air 05/11/24 10:07 BMI result Body Mass Index 30.8 Has a round face. Narrow oropharynx, Mallampati class 4. Neck size 16-1/2 inch. Const General: comfortable, no acute distress, alert and awake Orientation/consciousness: patient oriented x3 HEENT Head: Yes normal to inspection General nose exam: No nasal polyps present and No nasal discharge present Face and sinus: Yes sinuses nontender Mouth: oropharynx abnormals (Narrow and crowded Mallampati class 4) Throat: Yes posterior oropharynx normal Eyes General: appearance normal, both eyes and all related structures Neck Neck: Yes normal visual inspection, Yes no lymphadenopathy, Yes trachea midline, Yes no JVD and Yes other (Neck circumference 16-1/2 inch) Thyroid: Thyroid normal Chest Chest palpation & inspection: normal inspection of the chest, normal palpation of entire chest wall and no tenderness Resp Other: Percussion note resonant, breath sounds are slightly distant. No wheezes or rhonchi are heard. Cardio Palpation: normal PMI Rate: regular rate Rhythm: regular rhythm Heart sounds: no gallops and no murmurs GI Palpation (GI): Soft to palpation, nontender, No hepatosplenomegaly present, no masses and Other GI palpation findings present (Abdomen is moderately obese and protuberant) Auscultation: normal bowel sounds Back/Spine/Pelvis Thoracic/Lumbar Spine: thoracic and lumbar spine normal to inspection Skin General skin exam: no rashes or lesions noted Neuro General: patient oriented x3 and no focal motor deficits Cranial nerves: Yes CN's II-XII intact bilaterally Extrem General: Yes normal to inspection, Yes no clubbing, cyanosis or edema and Yes no calf tenderness Psych Appearance: grossly normal and well kempt Speech and movement: Normal speech and movement present Assessment & Plan Assessment & Plan (1) LARISSA (obstructive sleep apnea): Comment: PATIENT HAS HISTORY OF OBSTRUCTIVE SLEEP APNEA AND USED TO BE ON CPAP REGULARLY. SINCE THE LAST YEAR HE HAS NOT USED CPAP AT ALL AND WAS SLEEPING OK. NOW HE IS HAVING INCREASED SHORTNESS OF BREATH AT NIGHT WITH GASPING LIKE FEELING, AND SLEEP IS DISTURBED. IT SEEMS THAT HIS LARISSA SYMPTOMS ARE COMING BACK. Code(s): G47.33 - Obstructive sleep apnea (adult) (pediatric) Category: Medical Plan: ADVISED TO START USING THE CPAP REGULARLY EVERY NIGHT. HE STILL HAS IS CPAP DEVICE WHICH IS RELATIVELY NEW, AND HAS ALL THE SUPPLIES. (2) Restrictive lung disease: Comment: PULMONARY FUNCTION TEST SHOWS MODERATELY SEVERE RESTRICTIVE PULMONARY DISORDER, THIS WAS MAINLY DUE TO HIS OBESITY AND CHF. WHICH HAS IMPROVED SIGNIFICANTLY Code(s): J98.4 - Other disorders of lung Category: Medical Plan: CONTINUE DOING DEEP BREATHING EXERCISES 3 TIMES A DAY (3) Dyspnea on exertion: Comment: DYSPNEA ON EXERTION, MULTIFACTORIAL, CONTRIBUTED BY: WEIGHT GAIN, RESTRICTIVE PULMONARY DISORDER WELL CHF . IT HAD IMPROVED AFTER HE WAS STARTED ON DIURETIC THERAPY. THE PATIENT IS BEING TREATED WITH AMIODARONE AND NEEDS TO BE CHECKED FOR ANY NEW ONSET INTERSTITIAL LUNG DISEASE. Code(s): R06.09 - Other forms of dyspnea Category: Medical Plan: STAT CHEST X-RAY IS ORDERED Orders: Orders XR chest 2V Today G47.33 - Obstructive sleep apnea (adult) (pediatric), J98.4 - Other disorders of lung, R05.1 - Acute cough, R06.02 - Shortness of breath Coding Level of Care Code Est Pt Level 3 (24827) Diagnoses LARISSA (obstructive sleep apnea) G47.33 Restrictive lung disease J98.4 Dyspnea on exertion R06.09
== END 2024-05-11 10:33 | disposition home or self-care (01) ==
PROVIDERS: PCP Internal Medicine; Visit Provider Internal Medicine
DX: G47.33 Obstructive sleep apnea (adult) (pediatric) (principal); J98.4 Other disorders of lung; R06.09 Other forms of dyspnea
CPT/HCPCS: 99213

== ENCOUNTER 2024-05-17 13:57 | Outpatient (AMB) | payer MEDICARE, SELFPAY ==
--- NOTE | 2024-05-17 13:58 | MHC.PC.OV ---
Intake Visit Reasons: ? Shingles Intake Note: Patient is here to follow up on Shingles?. Drop Clipper Required: No Dental Equipment Repairer: Present Accompanied by: Spouse Allergies amlodipine Adverse Reaction (Intermediate, Verified 05/17/24 13:58) leg swelling gabapentin Adverse Reaction (Intermediate, Verified 05/17/24 13:58) lethargy lisinopril Adverse Reaction (Intermediate, Verified 05/17/24 13:58) Cough metformin Adverse Reaction (Intermediate, Verified 05/17/24 13:58) lethargy Tobacco use date assessed: 05/17/24 Fall risk assessment: No Falls in past year Last assessed Fall Risk: 05/17/24 Dental Screening Dental Screen Date: 05/04/24 HPI ? Shingles HPI Details 78-year-old obese male with diabetes mellitus atrial fibrillation hypothyroidism obstructive sleep apnea congestive heart failure hypercholesterolemia hypertension and BPH coming in for an acute problem. Last seen in May 04 and concerns about shingles and this was in nasal ciliary left side 02/26/2024 with post herpetic neuralgia. Treated with pregabalin. seen eye doctor for eyelid surgery. Patient developed vesicular rash on the left lower back with pain prompting for consultation. Patient has been noted by the to be confused during the night but during the daytime is alert and oriented. [facility] Medical History Shingles CHF (congestive heart failure) Preop exam for internal medicine Bilateral pleural effusion Pneumonia Physical deconditioning CKD (chronic kidney disease) stage 3, GFR 30-59 ml/min (HFpEF) heart failure with preserved ejection fraction Obesity (BMI 30-39.9) LARISSA (obstructive sleep apnea) PAF (paroxysmal atrial fibrillation) Type 2 diabetes mellitus with unspecified complications Peptic ulcer disease Non Hodgkin's lymphoma Anxiety and depression Hypercholesterolemia Vitamin D deficiency Obesity (BMI 30-39.9) Type 2 diabetes mellitus with hyperglycemia Thrombocytopenia Surgical History Hx of cataract extraction History of esophagogastroduodenoscopy (EGD) H/O colonoscopy H/O lymph node biopsy History of shoulder surgery Family History Father Lung cancer Mother Breast cancer Sister Breast cancer Brother Substance use disorder Sister No problems noted. Son No problems noted. Daughter No problems noted. Social History Household Members: Spouse and Children Housing: House Are you a primary special needs child caregiver to a significant other at home: No Do you presently have visiting nurse or other home services: No Alcohol intake: never Patient Tobacco Use Status: Never used Tobacco e-Cigarette/Vaping Use: Never Used Second Hand Smoke Exposure: No Advance Directives Date on File: 12/19/21 service: No Current occupational status: retired Cognitive needs: Yes (Walker, cane) Hearing needs: No Vision needs: Yes Questionnaire Thrive Questionnaire Date Thrive assessed: 12/14/23 AIDAN-7 AMB Questionnaire AIDAN-7 Date AIDAN - 7 assessed: 12/14/23 Source: Developed by Drs. Simon Zhou, Latisha Huang, Ayo Rodríguez and colleagues, with an educational skye from [employer]. Physical exam (Primary Care) Tobacco/Smoking Status: Tobacco use Status Tobacco use date assessed 05/17/24 05/17/24 13:59 Patient Tobacco Use Status Never used Tobacco 05/17/24 13:59 e-Cigarette/Vaping Use Never Used 05/17/24 13:59 Thrive Assessment: Date of Thrive Assessment Date Thrive assessed 12/14/23 05/17/24 13:59 Back/Spine/Pelvis Back/spine/pelvis image: 1. Vesicular 1-2 mm multiple with erythema on the background total of about 3 cm Telehealth Telehealth Telehealth Platform: Telephone Location of provider rendering services: practice address Location of patient: address on file Patient Identification confirmed using: Name, : Yes Telehealth method: video Patient verbally consented to treatment: Yes Patient verbally consented to billing insurance company: Yes Patient informed of any privacy concerns related to visit: Yes Minutes spent on Phone/Video with Pt.: 20 Coding Level of Care Code Tele Est Pt Level 3 (32892) Diagnoses Shingles B02.9 Confusion R41.0 Assessment & Plan Assessment & Plan (1) Shingles: Comment: nasocilaiary L side 02/2024 with post herpetic neuralgia (04/2024) LEFT LOWER back 05/2024 Code(s): B02.9 - Zoster without complications Category: Medical Plan: [id number] concern that the infection is reoccurring and so will treat with valacyclovir, referral to Infectious Disease. (2) Confusion: Code(s): R41.0 - Disorientation, unspecified Category: Medical Plan: With this confusion will do a CT scan the head. Discussed though that with the confusion during awake times and headaches will need to be in the hospital. Family is aware Orders: Orders CT head/brain wo IV con Today R41.0 - Disorientation, unspecified Referrals Infectious Disease Referral B02.9 - Zoster without complications Medications: New valacyclovir 1,000 mg PO Q8H 7 days 21 tabs 0RF B02.9 - Zoster without complications
== END 2024-05-17 17:25 | disposition home or self-care (01) ==
LOC: HO.HMCH 13:57
PROVIDERS: PCP Internal Medicine; Visit Provider Internal Medicine
DX: R41.0 Disorientation, unspecified (principal); B02.9 Zoster without complications

== ENCOUNTER → 2024-05-17 13:57 | Outpatient (BNVA) | payer MEDICARE, SELFPAY | PROVIDERS: PCP Internal Medicine; Visit Provider Internal Medicine ==

== ENCOUNTER 2024-06-08 09:25 | Outpatient (REF) | payer MEDICARE, SELFPAY ==
[2024-06-08 11:12] LABS: Estimated Glomerular Filt Rate 41
[2024-06-08 11:20] LABS: Free T4 (Free Thyroxine) 1.17 ng/dL (0.71-1.85)
[2024-06-08 11:21] LABS: Ferritin 321 ng/mL (20-250); Thyroid Stimulating Hormone 3.81 uIU/mL (0.32-4.0)
== END 2024-06-08 09:26 | disposition home or self-care (01) ==
LOC: HO.LAB 09:25
PROVIDERS: Nurse Practitioner Family; PCP Internal Medicine; Visit Provider Internal Medicine
DX: E11.65 Type 2 diabetes mellitus with hyperglycemia (principal); D50.9 Iron deficiency anemia, unspecified; E03.9 Hypothyroidism, unspecified
CPT/HCPCS: 36415; 82565; 82728; 84439; 84443

== ENCOUNTER 2024-06-14 14:44 | Outpatient (AMB) | payer MEDICARE, SELFPAY ==
[2024-06-14 14:53] VITALS: BP 128/76; PULSE 56; O2SAT 96; BMI 30.8
--- NOTE | 2024-06-14 14:53 | MHC.OFFVIS ---
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 He has no fever or chills and has no complaints except post herpetic neuralgia. [facility] Medical History Shingles CHF (congestive heart failure) Preop exam for internal medicine Bilateral pleural effusion Pneumonia Physical deconditioning CKD (chronic kidney disease) stage 3, GFR 30-59 ml/min (HFpEF) heart failure with preserved ejection fraction Obesity (BMI 30-39.9) LARISSA (obstructive sleep apnea) PAF (paroxysmal atrial fibrillation) Type 2 diabetes mellitus with unspecified complications Peptic ulcer disease Non Hodgkin's lymphoma Anxiety and depression Hypercholesterolemia Vitamin D deficiency Obesity (BMI 30-39.9) Type 2 diabetes mellitus with hyperglycemia Thrombocytopenia Surgical History Hx of cataract extraction History of esophagogastroduodenoscopy (EGD) H/O colonoscopy H/O lymph node biopsy History of shoulder surgery Family History Father Lung cancer Mother Breast cancer Sister Breast cancer Brother Substance use disorder Sister No problems noted. Son No problems noted. Daughter No problems noted. Social History Household Members: Spouse and Children Housing: House Are you a primary janitor caretaker to a significant other at home: No Do you presently have visiting nurse or other home services: No Alcohol intake: never Patient Tobacco Use Status: Never used Tobacco e-Cigarette/Vaping Use: Never Used Second Hand Smoke Exposure: No Advance Directives Date on File: 12/19/21 service: No Current occupational status: retired Cognitive needs: Yes (Walker, cane) Hearing needs: No Vision needs: Yes Review of Systems Const All systems reviewed & are unremarkable except as noted in HPI and below Physical Exam Vital Signs: Last Vital Signs Pulse 56 06/14/24 14:53 BP 128/76 06/14/24 14:53 Pulse Ox 96 06/14/24 14:53 BMI result Body Mass Index 30.8 Const General: cooperative Orientation/consciousness: patient oriented x3 HEENT Head: Yes normal to inspection Mouth: Normal oral and palatal mucosa present Eyes General: appearance normal, both eyes and all related structures Pupils: Equal, round and reactive pupils present Resp Effort & Inspection: normal respiratory effort Cardio Rate: regular rate Rhythm: regular rhythm GI Palpation (GI): Soft to palpation and nontender General: Yes no CVA tenderness Back/Spine/Pelvis Back: no CVA tenderness Skin General skin exam: no rashes or lesions noted Neuro General: patient oriented x3 Cranial nerves: Yes CN's II-XII intact bilaterally and Yes Equal, round and reactive pupils present Extrem General: Yes normal to inspection Psych Appearance: grossly normal Assessment & Plan Assessment & Plan (1) Shingles: Comment: No active shingles Code(s): B02.9 - Zoster without complications Category: Medical Plan No need for antivirals at this time. May give treatment postherpetic neuralgia. No need for LP Coding Level of Care Code New Pt Level 3 (38846) Diagnoses Shingles B02.9
== END 2024-06-15 13:33 | disposition home or self-care (01) ==
LOC: HO.HID 14:45
PROVIDERS: PCP Internal Medicine; Visit Provider Internal Medicine
DX: B02.9 Zoster without complications (principal)
CPT/HCPCS: 99213

== ENCOUNTER → 2024-06-14 14:44 | Outpatient (BNVA) | payer MEDICARE, SELFPAY | PROVIDERS: PCP Internal Medicine; Visit Provider Internal Medicine | DX: B02.9 Zoster without complications (principal) | CPT/HCPCS: 99212 ==

== ENCOUNTER 2024-06-27 10:02 | Outpatient (AMB) | payer MEDICARE, SELFPAY ==
--- NOTE | 2024-06-27 10:14 | MHC.OFFVIS ---
Vital Signs 06/27/24 10:15 Height 5 ft 5 in Weight 177 lb 4.026 oz BMI 29.5 BP 138/62 Blood Pressure Location Rt brachial Position Sitting Pulse 55 Pulse Source Monitor Intake Visit Reasons: 6m follow up Senior Business Development Manager Services: Senior Business Development Manager Present Theatrical Trouper: Theatrical Trouper Present Allergies amlodipine Adverse Reaction (Intermediate, Verified 06/27/24 10:17) leg swelling gabapentin Adverse Reaction (Intermediate, Verified 06/27/24 10:17) lethargy lisinopril Adverse Reaction (Intermediate, Verified 06/27/24 10:17) Cough metformin Adverse Reaction (Intermediate, Verified 06/27/24 10:17) lethargy Medication List - Last Reconciled 06/27/24 by Brain Su MD acetaminophen (Tylenol) 650 mg PO Q4H PRN amiodarone 200 mg PO DAILY 90 days apixaban (Eliquis) 5 mg PO BID ascorbic acid (vitamin C) 250 mg PO DAILY atorvastatin 80 mg PO DAILY 90 days bethanechol chloride 50 mg PO BID 30 days cholecalciferol (vitamin D3) (Vitamin D3) 25 mcg PO DAILY escitalopram oxalate 10 mg PO DAILY ferrous sulfate 325 mg PO DAILY furosemide 40 mg PO DAILY glipizide ER 5 mg PO DAILY levothyroxine 100 mcg PO DAILY@1100 90 days metoprolol succinate ER 100 mg PO DAILY 90 days multivitamin 1 tab PO DAILY nystatin 1 appl See Protocol topical TID 7 days pregabalin 50 mg PO BID tamsulosin 0.4 mg PO BEDTIME 90 days walker (Ultra-Light Rollator misc) As directed HPI Comments Details: Augustus returns for follow-up all regarding atrial fibrillation and congestive heart failure. In 2022, he was in congestive heart failure suspected to be from atrial fibrillation. He was put on amiodarone and then we plan to cardioversion but he went back to normal by himself. felt that he seems better while in sinus rhythm but stated that he did not feel a difference either way. For the last few months, more of an issues that he is constantly coughing. Again states it is almost constant but patient states it is intermittent. Overall, it does seem seem to be significant. Breathing itself is at baseline. No significant leg swelling. [facility] Medical History Shingles CHF (congestive heart failure) Preop exam for internal medicine Bilateral pleural effusion Pneumonia Physical deconditioning CKD (chronic kidney disease) stage 3, GFR 30-59 ml/min (HFpEF) heart failure with preserved ejection fraction Obesity (BMI 30-39.9) LARISSA (obstructive sleep apnea) PAF (paroxysmal atrial fibrillation) Type 2 diabetes mellitus with unspecified complications Peptic ulcer disease Non Hodgkin's lymphoma Anxiety and depression Hypercholesterolemia Vitamin D deficiency Obesity (BMI 30-39.9) Type 2 diabetes mellitus with hyperglycemia Thrombocytopenia Surgical History Hx of cataract extraction History of esophagogastroduodenoscopy (EGD) H/O colonoscopy H/O lymph node biopsy History of shoulder surgery Family History Father Lung cancer Mother Breast cancer Sister Breast cancer Brother Substance use disorder Sister No problems noted. Son No problems noted. Daughter No problems noted. Social History Household Members: Spouse and Children Housing: House Are you a primary career coach to a significant other at home: No Do you presently have visiting nurse or other home services: No Alcohol intake: never Patient Tobacco Use Status: Never used Tobacco e-Cigarette/Vaping Use: Never Used Second Hand Smoke Exposure: No Advance Directives Date on File: 12/19/21 service: No Current occupational status: retired Cognitive needs: Yes (Walker, cane) Hearing needs: No Vision needs: Yes Review of Systems ENT Reports dizziness Card Denies chest pain, Denies chest pain at rest, Denies chest pain with activity, Denies rapid heart rate, Denies pedal edema, Denies edema, Denies leg edema, Denies lightheadedness, Denies palpitations, Denies dyspnea, Denies dyspnea on exertion and Denies orthopnea Resp Denies cough, Denies dyspnea and Denies dyspnea on exertion GI Denies hematochezia and Denies change in stool character Musc Denies abnormal gait, Reports limited range of motion, Reports muscle cramps, Denies muscle weakness, Denies numbness, Denies radiating pain into limb, Denies stiffness and Denies tingling Neuro Denies abnormal gait, Reports dizziness, Denies numbness and Denies tingling Endo Denies palpitations Physical Exam Vital Signs: Last Vital Signs Pulse 55 06/27/24 10:15 BP 138/62 06/27/24 10:15 BMI result Body Mass Index 29.5 Const General: comfortable and no acute distress Orientation/consciousness: patient oriented x3 HEENT Other: Unremarkable Head: Yes normal to inspection Neck Neck: Yes normal visual inspection Chest Chest palpation & inspection: normal inspection of the chest Resp Auscultation: clear to auscultation bilaterally Cardio Palpation: normal PMI Heart sounds: S1 normal heart sound present, S2 normal heart sound present, no gallops, no murmurs and no rubs GI Palpation (GI): Soft to palpation Back/Spine/Pelvis Other: unremarkable Skin General skin exam: no rashes or lesions noted Neuro General: patient oriented x3 Extrem General: Yes normal to inspection Psych Mental Status: mental status grossly normal Office Procedures EKG Details: EKG with sinus bradycardia at 55/Min; AR prolongation to 264 milliseconds; nonspecific ST-T changes. [id number], Complete Assessment & Plan Assessment & Plan (1) PAF (paroxysmal atrial fibrillation): Comment: Cardioversion 12/04/2021 Code(s): I48.0 - Paroxysmal atrial fibrillation Category: Medical Plan: Status post cardioversion in 2021 but atrial fibrillation recurred few months back but resolved with amiodarone before cardioversion. Unclear if there is any connection between amiodarone cough. Chest x-ray is reporting interstitial prominence but similar to the previous study. We can do a CT scan. Stop amiodarone for now. There is a possibility of recurrent atrial fibrillation and we will have to deal with it when it happens. Otherwise, continue anticoagulation. (2) Chronic heart failure with preserved ejection fraction (HFpEF): Code(s): I50.32 - Chronic diastolic (congestive) heart failure Category: Medical Plan: He is clinically euvolemic. No recent issues. (3) Essential hypertension: Code(s): I10 - Essential (primary) hypertension Category: Medical Plan: Stable. No changes. (4) LARISSA (obstructive sleep apnea): Comment: PATIENT HAS HISTORY OF OBSTRUCTIVE SLEEP APNEA AND USED TO BE ON CPAP REGULARLY. SINCE THE LAST YEAR HE HAS NOT USED CPAP AT ALL AND WAS SLEEPING OK. NOW HE IS HAVING INCREASED SHORTNESS OF BREATH AT NIGHT WITH GASPING LIKE FEELING, AND SLEEP IS DISTURBED. IT SEEMS THAT HIS LARISSA SYMPTOMS ARE COMING BACK. Code(s): G47.33 - Obstructive sleep apnea (adult) (pediatric) Category: Medical Plan: Unable to use. (5) Cough: Code(s): R05.9 - Cough, unspecified Category: Medical Qualifiers: Cough type: acute Qualified Code(s): R05.1 - Acute cough Plan: Uncertain etiology. Obtain chest CT scan. Unclear if Amiodarone is playing a role, but okay to hold for now. He also has pulmonary follow-up coming up. Orders: Orders CT chest wo IV con Today J84.10 - Pulmonary fibrosis, unspecified Medications: Discontinued amiodarone as directed Discontinued Reason: Doctor's Order 200 mg PO DAILY 90 days 90 tabs 1RF Coding Level of Care Code Est Pt Level 4 (72329) Diagnoses PAF (paroxysmal atrial fibrillation) I48.0 Chronic heart failure with preserved ejection fraction (HFpEF) I50.32 Essential hypertension I10 LARISSA (obstructive sleep apnea) G47.33 Acute cough R05.1 Cough type: acute CPT Codes EKG - CPT: [id number], Complete ([id number])
[2024-06-27 10:15] VITALS: BP 138/62; PULSE 55; BMI 29.5
== END 2024-06-27 10:58 | disposition home or self-care (01) ==
PROVIDERS: PCP Internal Medicine; Visit Provider Internal Medicine
DX: I48.0 Paroxysmal atrial fibrillation (principal); I50.32 Chronic diastolic (congestive) heart failure; I10 Essential (primary) hypertension; G47.33 Obstructive sleep apnea (adult) (pediatric); R05.1 Acute cough
CPT/HCPCS: 93010; 99214

== ENCOUNTER → 2024-06-27 10:02 | Outpatient (BNVA) | payer MEDICARE, SELFPAY | PROVIDERS: PCP Internal Medicine; Visit Provider Internal Medicine | DX: I11.0 Hypertensive heart disease with heart failure (principal); I50.32 Chronic diastolic (congestive) heart failure; I48.0 Paroxysmal atrial fibrillation; R05.1 Acute cough; G47.33 Obstructive sleep apnea (adult) (pediatric) | CPT/HCPCS: 93005; 99212 ==

== ENCOUNTER 2024-07-05 10:06 | Outpatient (REF) | payer MEDICARE, SELFPAY | END 2024-07-05 10:07 | disposition home or self-care (01) | LOC: HO.CT 10:06 | PROVIDERS: PCP Internal Medicine; Visit Provider Internal Medicine | DX: R41.0 Disorientation, unspecified (principal) | CPT/HCPCS: 70450 ==

== ENCOUNTER 2024-07-12 13:32 | Outpatient (AMB) | payer MEDICARE, SELFPAY ==
--- NOTE | 2024-07-12 13:46 | MHC.OFFVIS ---
Intake Visit Reasons: Med review(bethanechol) Intake Note: Patient is present for MED REVIEW Urology Medication:TAMSULOSIN,BETHANECHOL CHLORIDE Antibiotic Allergy:GABAPENTIN,METFORMIN Blood Thinner:ELIQUIS Admissions Director Required: No Allergies amlodipine Adverse Reaction (Intermediate, Verified 07/12/24 13:47) leg swelling gabapentin Adverse Reaction (Intermediate, Verified 07/12/24 13:47) lethargy lisinopril Adverse Reaction (Intermediate, Verified 07/12/24 13:47) Cough metformin Adverse Reaction (Intermediate, Verified 07/12/24 13:47) lethargy HPI Comments Details: Augustus is a very pleasant male. He is a patient of Dr. Peters. He seen for the following urologic conditions - urinary retention - erectile dysfunction Telemedicine Evaluation 15 min [employer] Amanda Video Six-month follow-up Improved stream with bethanechol Cystoscopy - higher bladder neck, short prostate grade 2 trabeculation Lower urinary tract symptoms Combination therapy finasteride and tamsulosin Prior bladder ultrasound 30 g gland Urinary retention Prior episode seen emergency room [place] catheter placed for 1400 cc Had history of progressive weakness of stream PFSH Medical History Shingles CHF (congestive heart failure) Preop exam for internal medicine Bilateral pleural effusion Pneumonia Physical deconditioning CKD (chronic kidney disease) stage 3, GFR 30-59 ml/min (HFpEF) heart failure with preserved ejection fraction Obesity (BMI 30-39.9) LARISSA (obstructive sleep apnea) PAF (paroxysmal atrial fibrillation) Type 2 diabetes mellitus with unspecified complications Peptic ulcer disease Non Hodgkin's lymphoma Anxiety and depression Hypercholesterolemia Vitamin D deficiency Obesity (BMI 30-39.9) Type 2 diabetes mellitus with hyperglycemia Thrombocytopenia Surgical History Hx of cataract extraction History of esophagogastroduodenoscopy (EGD) H/O colonoscopy H/O lymph node biopsy History of shoulder surgery Family History Father Lung cancer Mother Breast cancer Sister Breast cancer Brother Substance use disorder Sister No problems noted. Son No problems noted. Daughter No problems noted. Social History Household Members: Spouse and Children Housing: House Are you a primary career and technology education teacher to a significant other at home: No Do you presently have visiting nurse or other home services: No Alcohol intake: never Patient Tobacco Use Status: Never used Tobacco e-Cigarette/Vaping Use: Never Used Second Hand Smoke Exposure: No Advance Directives Date on File: 12/19/21 service: No Current occupational status: retired Cognitive needs: Yes (Walker, cane) Hearing needs: No Vision needs: Yes Review of Systems Const All systems reviewed & are unremarkable except as noted in HPI and below Reports no additional complaints Resp Reports no additional complaints GI Reports no additional complaints Reports as per HPI Musc Reports no additional complaints Physical Exam Telemedicine evaluation Appropriate responses Regular breathing rate and rhythm HEENT Head: Yes normal to inspection Ears: hearing grossly normal bilaterally Eyes General: appearance normal, both eyes and all related structures Neck Neck: Yes normal visual inspection Chest Chest palpation & inspection: normal inspection of the chest Resp Effort & Inspection: normal respiratory effort and able to speak in complete sentences Telehealth Telehealth Location of provider rendering services: practice address Location of patient: address on file Patient Identification confirmed using: Name, : Yes Telehealth method: voice only Patient verbally consented to treatment: Yes Patient verbally consented to billing insurance company: Yes Patient informed of any privacy concerns related to visit: Yes Assessment & Plan Assessment & Plan (1) Urinary retention: Code(s): R33.9 - Retention of urine, unspecified Category: Medical (2) Weak urinary stream: Code(s): R39.12 - Poor urinary stream Category: Medical Plan Continue current medications Patient Instructions: Imaging studies, laboratory and physical exam results were discussed and reviewed in detail. No major barriers to patient understanding were identified. An opportunity to ask questions regarding the treatment plan was provided. All questions were answered. The patient expressed understanding and agreement with the above treatment plan. The patient is aware they should contact our office by phone for worsening of their current condition or the appearance of new urologic symptoms. Compliance is encouraged with any medications and followup testing that is ordered. It is a privilege to participate in the urologic care of your patient. If you have any questions or concerns regarding treatment for the above conditions, or other urologic issues, please do not hesitate to contact me. The office telephone contact is [phone]. This note is constructed using voice recognition software. While every effort has been made to ensure accuracy cloth wire weaver errors may have been included. Yours sincerely, Dr Satinder Perez MD, [facility] Providers of Expert, Compassionate Care for the Genitourinary System Coding Level of Care Code Tele Est Pt Level 3 (61043) Diagnoses Urinary retention R33.9 Weak urinary stream R39.12
--- OUTSIDE RECORDS SUMMARY | 2024-07-18 19:32 | XMS_ITS | Continuity of Care Document ---
Author Organization [place] - [facility], E[facility]S [facility] Address [address] [place] [address] Care Team Providers Care Cocoa Butter Filter Operator Name Role Phone ANTWANCARLA Primary Care Provider Assessment No assessment recorded. Plan of Treatment Reminders Order Date Submit Date Provider Last Modified By Organization Details Last Modified Time Details Appointments None recorded. Lab None recorded. Referral None recorded. Procedures None recorded. Surgeries None recorded. Imaging None recorded. Medication Orders ipratropium bromide 21 mcg (0.03 %) nasal spray 2023 024 [employer] [facility] ([facility]), [address] [place] [address], [address], [place], [place], [phone], 4 10:26:51 Patient TargetsNo targets recorded. Patient InstructionsNo instructions recorded. Reason for Referral None Reported. Problems Name Problem SNOMED Code Status Onset Date Resolution Date Notes Provider Name and Address Organization Details Recorded Time [facility] ce of salivary secretion 73083700 Active 2021 [facility] camille of salivary secretion ; Note: Date Diagnosed : 2 4:44 PM (K11.7) Not Available [facility] 4 03:11:05 Chronic rhinitis 81061949 Active 2021 Chronic rhinitis; Note: Date Diagnosed : 2 4:44 PM (J31.0) Not Available [facility] 4 03:11:06 Feeling of lump in throat 249563438 Active 2023 DOUGLAS NARANJO MD 100 [facility], [place], [address] , [facility] - [facility] 4 10:19:36 Posterior rhinorrhe a 15685903 Active 2023 DOUGLAS NARANJO MD [address] [facility] 100, [place], [address] , [facility] - [facility] 4 10:19:44 Ptosis of left upper eyelid 44199076572 9107 Active 2023 DOUGLAS NARANJO MD 100 [facility],[place] [address], [place], [place], [address] , [place] - [facility] 4 10:29:43 Problem Notes None recorded. Procedures Surgical History Date Name Laterality Status Provider Name and Address Organization Details Recorded Time 06/30/20 24 Fiberoptic Laryngoscopy (Comprehensive) completed DOUGLAS OLVERA MD 100 [facility],[place] [address], [place], [address], [facility] - [facility] 06/30/2024 10:25:51 proximal subtotal gastrectomy by abdominal approach completed Harrison Garcia [place] - [facility] 06/30/2024 10:25:00 Imaging Results None recorded. Procedure Notes None recorded. Medical Equipment None Reported. Medications Name Sig Start Date Stop Date Status Note LastModified by Organization Details LastModified Time losartan 50 mg tablet active Medicati on ID: [id number] B rand Name: losartan Send Method: E-Prescr ibed Sub s Allowed: subs OK Medic ationGen ericName : losartan Not Available Not Available Not Available furosemid e 40 mg tablet active Not Available Not Available Not Available atorvasta tin 40 mg tablet active Not Available Not Available Not Available atorvasta tin 80 mg tablet active Not Available Not Available Not Available doxycycli ne hyclate 100 mg capsule TAKE 1 CAPSULE BY MOUTH TWICE DAILY 06/30 completed Not Available Not Available Not Available cefpodoxi me 200 mg tablet TAKE 1 TABLET BY MOUTH TWICE DAILY 06/30 completed Not Available Not Available Not Available azithromy bryce 250 mg tablet TAKE 2 TABLETS BY MOUTH ON DAY 1 THEN 1 TABLET BY MOUTH EVERY DAY 06/30 completed Not Available Not Available Not Available amiodaron e 200 mg tablet active Not Available Not Available Not Available valacyclo vir 1 gram tablet TAKE 1 TABLET BY MOUTH EVERY 8 HOURS FOR 7 DAYS active Not Available Not Available No t Available metoprolo l succinate ER 100 mg tablet,ex tended release 24 hr active Not Available Not Available Not Available glipizide ER 5 mg tablet, extended release 24 hr active Not Available Not Available Not Available sulfameth oxazole 800 mg-trimet hoprim 160 mg tablet TAKE 1 TABLET BY MOUTH TWICE DAILY FOR 10 DAYS active Not Available Not Available No t Available levothyro xine 75 mcg tablet active Not Available Not Available Not Available levothyro xine 100 mcg tablet active Not Available Not Available Not Available levothyro xine 88 mcg tablet active Not Available Not Available Not Available tamsulosi n 0.4 mg capsule active Not Available Not Available Not Available amlodipin e 10 mg tablet active Medicati on ID: [id number] B rand Name: amlodipi ne Send Method: E-Prescr ibed Sub s Allowed: subs OK Medic ationGen ericName : amlodipi ne Not Available Not Available Not Available cephalexi n 500 mg capsule TAKE 1 CAPSULE BY MOUTH EVERY 6 HOURS FOR 7 DAYS 06/30 completed Not Available Not Available Not Available furosemid e 20 mg tablet active Medicati on ID: [id number] B rand Name: furosemi de Send Method: E-Prescr ibed Sub s Allowed: subs OK Medic ationGen ericName : furosemi de Not Available Not Available Not Available bethanech ol chloride 50 mg tablet TAKE 1 TABLET BY MOUTH TWICE DAILY active Not Available Not Available No t Available ipratropi um bromide 21 mcg (0.03 %) nasal spray 2023 active Not Available Not Available Not Avai lable finasteri de 5 mg tablet active Not Available Not Available Not Available ipratropi um bromide 0.02 % solution for inhalatio n 2023 active Not Available Not Available Not Avai lable oxycodone 5 mg tablet TAKE 1 TABLET BY MOUTH EVERY 8 HOURS NEEDED FOR PAIN active Not Available Not Available No t Available neomycin 3.5 mg/g-poly myxin B 10,000 unit/g-de xameth 0.1 % eye oint 06/30 completed Not Available Not Available Not Available escitalop iron 10 mg tablet active Not Available Not Available Not Available metronida zole 1 % topical gel APPLY TOPICALL Y TO THE AFFECTED AREA AT BEDTIME active Not Available Not Available No t Available pregabali n 25 mg capsule TAKE 1 CAPSULE BY MOUTH TWICE DAILY active Not Available Not Available No t Available pregabali n 50 mg capsule active Not Available Not Available Not Available Eliquis 5 mg tablet active Not Available Not Available No t Available Vitals Date Recorded Body height Body mass index (BMI) Body weight Provider Name and Address Organization Details Last Updated DateTime 06/30/2024 165.1 cm 29.5 kg/m2 77188.85 g Harrison Garcia [place] - [facility] 06/30/2024 09:57:49 Social History None recorded. Functional Status None recorded. Mental Status None recorded. Family History Nothing Reported. Medical History Condition Response Heart Problems Y Asthma Y Past Encounters Encounter ID Performer Location Encounter Start Date Encounter Closed Date Diagnosis/Indication Diagnosis SNOMED-CT Code Diagnosis ICD10 Code [id number] DOUGLAS NARANJO MD [facility]NT[facility] of [address] [address] 06/30/2024 09:41:04 06/30/2024 10:32:04 Chronic rhinitis 61677306 J31.0 Feeling of lump in throat 803824463 R09.89 Posterior rhinorrhea 758 90535 R09.82 Ptosis of left upper eyelid 0593196747 20488 H02.402 Health Concerns Section Related Observation LastModified by Organization Detai ls LastModified Time None Recorded Concern Status LastModified by Organization Details LastModified Time None Recorded Payers Encounter Date Sequence Insurance Name Policy Number Policy Wallace Covered Member ID Wallace Member ID Guarantor Name 06/30/2024 1 [facility] [id number] 1 Augustus Reeder [id number] Augustus Reeder Notes Date Note Type Note Provider Name and Address Organization Details Recorded Time 4 text/htm l Last seen in 2021. Has chronic clear nasal d/c and PND. Frequently clearing his throat Using decongestant sprays intermittentlyPreviously given AtroventHx of cricopharyngeal spasm DOUGLAS OLVERA MD [address] [place] [address], [phone], [place] - [facility] 06/30/2024 10:31:33
--- OUTSIDE RECORDS SUMMARY | 2024-07-18 19:32 | XMS_ITS | Data Portability ---
Author Organization [place] - [facility], Allergy Address [address] [address] Care Team Providers Care Cycle Director Name Role Phone CARLA MONCADA Primary Care Provider [phone] Assessment No assessment recorded. Plan of Treatment Reminders Order Date Submit Date Provider Last Modified By Organization Details Last Modified Time Details Appointments None recorded. Lab None recorded. Referral None recorded. Procedures None recorded. Surgeries None recorded. Imaging None recorded. Medication Orders ipratropium bromide 21 mcg (0.03 %) nasal spray 2023 024 [employer] ([facility]), [address] [place] [address], [address], [place], [place], [phone], 4 10:26:51 Patient TargetsNo targets recorded. Patient InstructionsNo instructions recorded. Reason for Referral None Reported. 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 2021 [facility] of salivary secretion ; Note: Date Diagnosed : 2 4:44 PM (K11.7) Not Available [facility] 4 03:11:05 Chronic rhinitis 42169650 Active 2021 Chronic rhinitis; Note: Date Diagnosed : 2 4:44 PM (J31.0) Not Available [facility] 4 03:11:06 Feeling of lump in throat 277479249 Active 2023 DOUGLAS NARANJO MD 100 [facility],[place] [address], [place], [address] , [facility] - [facility] 4 10:19:36 Posterior rhinorrhe a 23718348 Active 2023 DOUGLAS NARANJO MD 100 [facility],[place] [address], [place], [address] , [facility] - [facility] 4 10:19:44 Ptosis of left upper eyelid 41679372173 9107 Active 2023 DOUGLAS NARANJO MD 100 [facility],[place] [address], [place], [address] , [facility] - [facility] 4 10:29:43 Problem Notes None recorded. 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 Procedure Notes None recorded. Medical Equipment None Reported. Medications Name Sig Start Date Stop Date Status Note LastModified by Organization Details LastModified Time losartan 50 mg tablet active Medicati on ID: [id number] B rand Name: losartan Send Method: E-Prescr [...] 10 mg tablet active Medicati on ID: [id number] B rand Name: amlodipi ne Send Method: E-Prescr ibed Sub s Allowed: subs OK Medic ationGen ericName : amlodipi ne Not Available Not Available Not Available cephalexi n 500 mg capsule TAKE 1 CAPSULE BY MOUTH EVERY 6 HOURS FOR 7 DAYS 06/30 completed Not Available Not Available Not Available furosemid e 20 mg tablet active Medicati on ID: [id number] B rand Name: furosemi de Send Method: [...] Updated DateTime 06/30/2024 165.1 cm 29.5 kg/m2 65216.85 g Harrison Garcia [place] - [facility] 06/30/2024 09:57:49 Social History None recorded. Functional Status None recorded. Mental Status None recorded. Family History Nothing Reported. Medical History Condition Response Heart Problems Y Asthma Y Past Encounters Encounter ID Performer Location Encounter Start Date Encounter Closed Date Diagnosis/Indication Diagnosis SNOMED-CT Code Diagnosis ICD10 Code [id number] DOUGLAS NARANJO MD [facility]NT[facility] of [address] [address] 06/30/2024 09:41:04 06/30/2024 10:32:04 Chronic rhinitis 11285050 J31.0 Feeling of lump in throat 929980579 R09.89 Posterior rhinorrhea 758 52678 R09.82 Ptosis of left upper eyelid 3867114330 25235 H02.402 Health Concerns Section Related Observation LastModified by Organization Detai ls LastModified Time None Recorded Concern Status LastModified by Organization Details LastModified Time None Recorded Advance Directives Directive None Recorded Payers Encounter Date Sequence Insurance Name Policy Number Policy Wallace Covered Member ID Wallace Member ID Guarantor Name 06/30/2024 1 [facility] [id number] 1 Augustus Reeder [id number] Augustus Reeder Notes Date Note Type Note Provider Name and Address Organization Details Recorded Time 4 text/htm l Last seen in 2021. Has chronic clear nasal d/c and PND. Frequently clearing his throat Using decongestant sprays intermittentlyPreviously given AtroventHx of cricopharyngeal spasm DOUGLAS OLVERA MD [address] [place] [address], [address], [facility] - [facility] 06/30/2024 10:31:33
== END 2024-07-12 14:28 | disposition home or self-care (01) ==
LOC: HO.HUSH 13:32
PROVIDERS: PCP Internal Medicine; Visit Provider Urology
DX: R33.9 Retention of urine, unspecified (principal); R39.12 Poor urinary stream
CPT/HCPCS: 99442

== ENCOUNTER 2024-07-28 07:57 | Outpatient (REF) | payer MEDICARE, SELFPAY ==
--- OUTSIDE RECORDS SUMMARY | 2024-07-28 08:00 | XMS_ITS | Data Portability ---
Author Organization [place] - [facility], Allergy Address [address] [address] Care Team Providers Care Phone Operator Name Role Phone CARLA MONCADA Primary Care Provider Assessment No assessment recorded. Plan of Treatment Reminders Order Date Submit Date Provider Last Modified By Organization Details Last Modified Time Details Appointments None recorded. Lab None recorded. Referral None recorded. Procedures None recorded. Surgeries None recorded. Imaging None recorded. Medication Orders ipratropium bromide 21 mcg (0.03 %) nasal spray 2023 024 [place], [address] [facility] [address], [place], [address], 4 10:26:51 Patient TargetsNo targets recorded. Patient InstructionsNo instructions recorded. Reason for Referral None Reported. Problems Name Problem SNOMED Code Status Onset Date Resolution Date Notes Provider Name and Address Organization Details Recorded Time [facility] ce of salivary secretion 74815636 Active 2021 [facility] of salivary secretion ; Note: Date Diagnosed : 2 4:44 PM (K11.7) Not Available [facility] 4 03:11:05 Chronic rhinitis 37307786 Active 2021 Chronic rhinitis; Note: Date Diagnosed : 2 4:44 PM (J31.0) Not Available [facility] 4 03:11:06 Feeling of lump in throat 656238129 Active 2023 DOUGLAS NARANJO MD 100 [facility], [place], [address] , [facility] - [facility] [place] 4 10:19:36 Posterior rhinorrhe a 27279902 Active 2023 DOUGLAS NARANJO MD 100 [facility],[address] [address], [place], [address] , [facility] - [facility] 4 10:19:44 Ptosis of left upper eyelid 57743196585 9107 Active 2023 DOUGLAS NARANJO MD 100 [facility], [place], [address] , [facility] - [facility] 4 10:29:43 Allergic rhinitis 05911490 Active 2023 Silke márquez, [place] - [facility] [place] 4 13:36:28 Problem Notes None recorded. 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 Procedure Notes None recorded. Medical Equipment None Reported. Medications Name Sig Start Date Stop Date Status Note LastModified by Organization Details LastModified Time losartan 50 mg tablet active Medicati on ID: [id number] B rand Name: losartan Send Method: E-Prescr [...] 10 mg tablet active Medicati on ID: [id number] B rand Name: amlodipi ne Send Method: E-Prescr ibed Sub s Allowed: subs OK Medic ationGen ericName : amlodipi ne Not Available Not Available Not Available cephalexi n 500 mg capsule TAKE 1 CAPSULE BY MOUTH EVERY 6 HOURS FOR 7 DAYS 06/30 completed Not Available Not Available Not Available furosemid e 20 mg tablet active Medicati on ID: [id number] B rand Name: furosemi de Send Method: E-Prescr ibed Sub s Allowed: subs OK Medic ationGen ericName : furosemi de Not Available Not Available Not Available bethanech ol chloride 50 mg tablet TAKE 1 TABLET BY MOUTH TWICE DAILY active Not Available Not Available No t Available ipratropi um bromide 21 mcg (0.03 %) nasal spray Inhale 2 spray three times a day as directed 2023 active Not Available Not Available Not [...] Updated DateTime 06/30/2024 165.1 cm 29.5 kg/m2 94903.85 g Harrison Garcia [place] - [facility] 06/30/2024 09:57:49 Social History None recorded. Functional Status None recorded. Mental Status None recorded. Family History Nothing Reported. Medical History Condition Response Heart Problems Y Asthma Y Past Encounters Encounter ID Performer Location Encounter Start Date Encounter Closed Date Diagnosis/Indication Diagnosis SNOMED-CT Code Diagnosis ICD10 Code [id number] DOUGLAS NARANJO MD [facility] [address] [address] 06/30/2024 09:41:04 06/30/2024 10:32:04 Chronic rhinitis 31461386 J31.0 Feeling of lump in throat 604654168 R09.89 Posterior rhinorrhea 758 91334 R09.82 Ptosis of left upper eyelid 9020497157 84377 H02.402 Health Concerns Section Related Observation LastModified by Organization Detai ls LastModified Time None Recorded Concern Status LastModified by Organization Details LastModified Time None Recorded Advance Directives Directive None Recorded Payers Encounter Date Sequence Insurance Name Policy Number Policy Wallace Covered Member ID Wallace Member ID Guarantor Name 06/30/[address] [place] [address] [id number] 1 Henrydonald Varinder [id number] Augustus Reeder Notes Date Note Type Note Provider Name and Address Organization Details Recorded Time text/htm l Last seen in 2021. Has chronic clear nasal d/c and PND. Frequently clearing his throat Using decongestant sprays intermittentlyPreviously given AtroventHx of cricopharyngeal spasm DOUGLAS OLVERA MD [address] [address], [place], [address], [place] - [facility] 06/30/2024 10:31:33
--- OUTSIDE RECORDS SUMMARY | 2024-07-28 08:00 | XMS_ITS | Continuity of Care Document ---
Author Organization [place] - [facility], [facility] Address [address] [place] [address] Care Team Providers Care Coagulation Operator Name Role Phone CARLA MONCADA Primary [...] [facility], [address] [facility] [address], [place], [address], 4 10:26:51 Patient TargetsNo targets recorded. Patient InstructionsNo instructions recorded. Reason for Referral None Reported. Problems Name Problem SNOMED Code Status Onset Date Resolution Date Notes Provider Name and Address Organization Details Recorded Time [facility] ce of salivary secretion 60503128 Active 2021 [facility] of salivary secretion ; Note: Date Diagnosed : 2 4:44 PM (K11.7) Not Available [facility] 4 03:11:05 Chronic rhinitis 95163994 Active 2021 Chronic rhinitis; Note: Date Diagnosed : 2 4:44 PM (J31.0) Not Available [facility] 4 03:11:06 Feeling of lump in throat 772573216 Active 2023 DOUGLAS NARANJO MD 100 [facility] 100, [place], [address] , [facility] - [facility] [place] 4 10:19:36 Posterior rhinorrhe a 40727017 Active 2023 DOUGLAS NARANJO MD [address] [facility],[place] [address], [place], [address] , [facility] - [facility] [place] 4 10:19:44 Ptosis of left upper eyelid 48276657978 9107 Active 2023 DOUGLAS NARANJO MD [address] [facility] [address], [place], [address] , [facility] - [facility] [place] 4 10:29:43 Allergic rhinitis 26736596 Active 2023 Silke márquez [place] - [facility] [place] 4 13:36:28 Problem Notes None recorded. Procedures Surgical History Date Name Laterality Status Provider Name and Address Organization Details Recorded Time 06/30/20 24 Fiberoptic Laryngoscopy (Comprehensive) completed DOUGLAS OLVERA MD [address] 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 Procedure Notes None recorded. Medical Equipment None Reported. Medications Name Sig Start Date Stop Date Status Note LastModified by Organization Details LastModified Time losartan 50 mg tablet active Medicati on ID: [id number] B rand Name: losartan Send Method: E-Prescr [...] TAKE 1 TABLET BY MOUTH TWICE DAILY 11/22 /2024 completed Not Available Not Available Not Available [...] 10 mg tablet active Medicati on ID: [id number] B rand Name: amlodipi ne Send Method: E-Prescr ibed Sub s Allowed: subs OK Medic ationGen ericName : amlodipi ne Not Available Not Available Not Available cephalexi n 500 mg capsule TAKE 1 CAPSULE BY MOUTH EVERY 6 HOURS FOR 7 DAYS 06/30 completed Not Available Not Available Not Available furosemid e 20 mg tablet active Medicati on ID: [id number] B rand Name: furosemi de Send Method: [...] Updated DateTime 06/30/2024 165.1 cm 29.5 kg/m2 90542.85 g Harrison Garcia [place] - [facility] 06/30/2024 09:57:49 Social History None recorded. Functional Status None recorded. Mental Status None recorded. Family History Nothing Reported. Medical History Condition Response Heart Problems Y Asthma Y Past Encounters Encounter ID Performer Location Encounter Start Date Encounter Closed Date Diagnosis/Indication Diagnosis SNOMED-CT Code Diagnosis ICD10 Code [id number] DOUGLAS NARANJO MD [facility] of [address] [address] 06/30/2024 09:41:04 06/30/2024 10:32:04 Chronic rhinitis 86935010 J31.0 Feeling of lump in throat 520565282 R09.89 Posterior rhinorrhea 758 22205 R09.82 Ptosis of left upper eyelid 6338408472 18608 H02.402 Health Concerns Section Related Observation LastModified by Organization Detai ls LastModified Time None Recorded Concern Status LastModified by Organization Details LastModified Time None Recorded Payers Encounter Date Sequence Insurance Name Policy Number Policy Wallace Covered Member ID Wallace Member ID Guarantor Name 06/30/[address] [place] [address] [id number] 1 Henrydonald Varinder [id number] Augustus Reeder Notes Date Note Type Note Provider Name and Address Organization Details Recorded Time 4 text/htm l Last seen in 2021. Has chronic clear nasal d/c and PND. Frequently clearing his throat Using decongestant sprays intermittentlyPreviously given AtroventHx of cricopharyngeal spasm DOUGLAS OLVERA MD [address] [address], [place], [address], [place] - [facility] 06/30/2024 10:31:33
== END 2024-07-28 07:58 | disposition home or self-care (01) ==
LOC: HO.CT 07:57
PROVIDERS: PCP Internal Medicine; Visit Provider Internal Medicine
DX: J84.10 Pulmonary fibrosis, unspecified (principal)
CPT/HCPCS: 71250

== ENCOUNTER → 2024-07-28 07:59 | Outpatient (BNV) | payer MEDICARE, SELFPAY | PROVIDERS: PCP Internal Medicine; Visit Provider Radiology Diagnostic Radiology | DX: J84.10 Pulmonary fibrosis, unspecified (principal) | CPT/HCPCS: 71250 ==

== ENCOUNTER 2024-08-16 14:09 | Outpatient (AMB) | payer MEDICARE, SELFPAY ==
--- OUTSIDE RECORDS SUMMARY | 2024-08-16 14:11 | XMS_ITS | Data Portability ---
Author Organization [place] - [facility], Allergy Address [address] [address] Care Team Providers Care Healthcare Sales Representative Name Role Phone CARLA MONCADA Primary Care Provider Assessment No assessment recorded. Plan of Treatment Reminders Order Date Submit Date Provider Last Modified By Organization Details Last Modified Time Details Appointments None recorded. Lab None recorded. Referral None recorded. Procedures None recorded. Surgeries None recorded. Imaging None recorded. Medication Orders ipratropium bromide 21 mcg (0.03 %) nasal spray 2023 024 [place] [facility], [address] [place] [address], [facility] 600, [place], [place], [phone], 4 10:26:51 Patient TargetsNo targets recorded. Patient InstructionsNo instructions recorded. Reason for Referral None Reported. Problems Name Problem SNOMED Code Status Onset Date Resolution Date Notes Provider Name and Address Organization Details Recorded Time [facility] ce of salivary secretion 70353903 Active 2021 [facility] of salivary secretion ; Note: Date Diagnosed : 2 4:44 PM (K11.7) Not Available [facility] 4 03:11:05 Chronic rhinitis 62663205 Active 2021 Chronic rhinitis; Note: Date Diagnosed : 2 4:44 PM (J31.0) Not Available [facility] 4 03:11:06 Feeling of lump in throat 446265838 Active 2023 DOUGLAS NARANJO MD 100 [facility] 100, [facility] [place], [address] , [facility] - [facility] [place] 4 10:19:36 Posterior rhinorrhe a 01875162 Active 2023 DOUGLAS NARANJO MD 100 [facility],[address] [address], [facility] [place], [address] , [facility] - [facility] 4 10:19:44 Ptosis of left upper eyelid 93929735562 9107 Active 2023 DOUGLAS NARANJO MD 100 [facility],[address] [address], [place], [address] , [facility] - [facility] 4 10:29:43 Allergic rhinitis 30109793 Active 2023 Silke márquez, [place] - [facility] [place] 4 13:36:28 Problem Notes None recorded. Procedures Surgical History Date Name Laterality Status Provider Name and Address Organization Details Recorded Time 06/30/20 24 Fiberoptic Laryngoscopy (Comprehensive) completed DOUGLAS OLVERA MD 100 [facility],[address] [address], [place], [address], [facility] - [facility] 06/30/2024 10:25:51 proximal subtotal gastrectomy by abdominal approach completed Harrison Garcia [place] - [facility] 06/30/2024 10:25:00 Imaging Results None recorded. Procedure Notes None recorded. Medical Equipment None Reported. Medications Name Sig Start Date Stop Date Status Note LastModified by Organization Details LastModified Time losartan 50 mg tablet active Medicati on ID: [id number] B rand Name: losartan Send Method: E-Prescr [...] 10 mg tablet active Medicati on ID: [id number] B rand Name: amlodipi ne Send Method: E-Prescr ibed Sub s Allowed: subs OK Medic ationGen ericName : amlodipi ne Not Available Not Available Not Available cephalexi n 500 mg capsule TAKE 1 CAPSULE BY MOUTH EVERY 6 HOURS FOR 7 DAYS 06/30 completed Not Available Not Available Not Available furosemid e 20 mg tablet active Medicati on ID: [id number] B rand Name: furosemi de Send Method: [...] spray three times a day as directed active Not Available Not Available No t Available finasteri de 5 mg tablet active Not [...] Updated DateTime 06/30/2024 165.1 cm 29.5 kg/m2 20536.85 g Harrison Garcia [place] - [facility] 06/30/2024 09:57:49 Social History None recorded. Functional Status None recorded. Mental Status None recorded. Family History Nothing Reported. Medical History Condition Response Heart Problems Y Asthma Y Past Encounters Encounter ID Performer Location Encounter Start Date Encounter Closed Date Diagnosis/Indication Diagnosis SNOMED-CT Code Diagnosis ICD10 Code Diagnosis Note [id number] DOUGLAS NARANJO MD [facility] [address] [address] 06/30/2024 09:41:04 06/30/2024 10:32:04 Chronic rhinitis 52766386 J31.0 Patient with chronic nasal drainage, postnasal drip and globus sensation. We discussed that he likely has vasomotor rhinitis secondary to age and use of antihypert ensive agents. There is some dry nasal mucosa which likely leads to excess secretions . I have suggested saline irrigation s with the NeilMed sinus rinse 1-2 times per day. If that is not helpful he can add ipratropiu m bromide nasal spray up to 3 times daily.Spou se will drop off CD of images after he has a head CT in the next week or so due to post herpetic neuralgia and left ptosis Feeling of lump in throat 564107487 R09.89 We also discussed that some of his symptoms are likely due to his known history of cricophary ngeal spasm. I do not see any pooling of secretions that would suggest significan t obstructio n requiring any interventi on. Posterior rhinorrhea 671 55302 R09.82 Ptosis of left upper eyelid 3198116403 50763 H02.402 Health Concerns Section Related Observation LastModified by Organization Detai ls LastModified Time None Recorded Concern Status LastModified by Organization Details LastModified Time None Recorded Advance Directives Directive None Recorded Payers Encounter Date Sequence Insurance Name Policy Number Policy Wallace Covered Member ID Wallace Member ID Guarantor Name 06/30/2024 1 [facility] [id number] 1 Augustus Reeder [id number] Henrydonald Oswaldra Notes Date Note Type Note Provider Name and Address Organization Details Recorded Time 4 text/htm l Last seen in 2021. Has chronic clear nasal d/c and PND. Frequently clearing his throat Using decongestant sprays intermittentlyPreviously given AtroventHx of cricopharyngeal spasm DOUGLAS OLVERA MD [address] [place] [address], [address] - [facility] 06/30/2024 10:31:33
--- OUTSIDE RECORDS SUMMARY | 2024-08-16 14:11 | XMS_ITS | Continuity of Care Document ---
Author Organization [place] - [facility], [facility] Address [address] [place] [address] Care Team Providers Care Head Soft Sugar Operator Name Role Phone CARLA MONCADA Primary Care Provider Assessment No assessment recorded. Plan of Treatment Reminders Order Date Submit Date Provider Last Modified By Organization Details Last Modified Time Details Appointments None recorded. Lab None recorded. Referral None recorded. Procedures None recorded. Surgeries None recorded. Imaging None recorded. Medication Orders ipratropium bromide 21 mcg (0.03 %) nasal spray 2023 024 [facility], [address] [place] [address], [place], [phone], 4 10:26:51 Patient TargetsNo targets recorded. Patient InstructionsNo instructions recorded. Reason for Referral None Reported. Problems Name Problem SNOMED Code Status Onset Date Resolution Date Notes Provider Name and Address Organization Details Recorded Time [facility] ce of salivary secretion 95564684 Active 2021 [facility] of salivary secretion ; Note: Date Diagnosed : 2 4:44 PM (K11.7) Not Available [facility] 4 03:11:05 Chronic rhinitis 11052443 Active 2021 Chronic rhinitis; Note: Date Diagnosed : 2 4:44 PM (J31.0) Not Available [facility] 4 03:11:06 Feeling of lump in throat 825798493 Active 2023 DOUGLAS NARANJO MD [address] [address], [place], [address] , [facility] - [facility] [place] 4 10:19:36 Posterior rhinorrhe a 85849588 Active 2023 DOUGLAS NARANJO MD 100 [facility],[place] [address], [place], [address] , [facility] - [facility] [place] 4 10:19:44 Ptosis of left upper eyelid 03881843453 9107 Active 2023 DOUGLAS NARANJO MD 100 [facility],[place] [address], [place], [address] , [facility] - [facility] [place] 4 10:29:43 Allergic rhinitis 39584083 Active 2023 Silke már[place]READING, [place] - [facility] [place] 4 13:36:28 Problem Notes None recorded. Procedures Surgical History Date Name Laterality Status Provider Name and Address Organization Details Recorded Time 06/30/20 24 Fiberoptic Laryngoscopy (Comprehensive) completed DOUGLAS OLVERA MD 100 [facility],[address] [address], [place], [address], [facility] - [facility] 06/30/2024 10:25:51 proximal subtotal gastrectomy by abdominal approach completed Harrison Garcia [place] - [facility] 06/30/2024 10:25:00 Imaging Results None recorded. Procedure Notes None recorded. Medical Equipment None Reported. Medications Name Sig Start Date Stop Date Status Note LastModified by Organization Details LastModified Time losartan 50 mg tablet active Medicati on ID: [id number] B rand Name: losartan Send Method: E-Prescr [...] 10 mg tablet active Medicati on ID: [id number] B rand Name: amlodipi ne Send Method: E-Prescr ibed Sub s Allowed: subs OK Medic ationGen ericName : amlodipi ne Not Available Not Available Not Available cephalexi n 500 mg capsule TAKE 1 CAPSULE BY MOUTH EVERY 6 HOURS FOR 7 DAYS 06/30 completed Not Available Not Available Not Available furosemid e 20 mg tablet active Medicati on ID: [id number] B rand Name: furosemi de Send Method: [...] Updated DateTime 06/30/2024 165.1 cm 29.5 kg/m2 94963.85 g Harrison Garcia [place] - [facility] 06/30/2024 09:57:49 Social History None recorded. Functional Status None recorded. Mental Status None recorded. Family History Nothing Reported. Medical History Condition Response Heart Problems Y Asthma Y Past Encounters Encounter ID Performer Location Encounter Start Date Encounter Closed Date Diagnosis/Indication Diagnosis SNOMED-CT Code Diagnosis ICD10 Code Diagnosis Note [id number] DOUGLAS NARANJO MD [facility] of [address] [address] 06/30/2024 09:41:04 06/30/2024 10:32:04 Chronic rhinitis 20355474 J31.0 Patient with chronic nasal drainage, postnasal [...] left ptosis Feeling of lump in throat 212629434 R09.89 We also discussed that some of his symptoms are likely due to his known history of cricophary ngeal spasm. I do not see any pooling of secretions that would suggest significan t obstructio n requiring any interventi on. Posterior rhinorrhea 758 05893 R09.82 Ptosis of left upper eyelid 9506912931 67739 H02.402 Health Concerns Section Related Observation LastModified by Organization Detai ls LastModified Time None Recorded Concern Status LastModified by Organization Details LastModified Time None Recorded Payers Encounter Date Sequence Insurance Name Policy Number Policy Wallace Covered Member ID Wallace Member ID Guarantor Name 06/30/2024 1 [facility] [id number] 1 Augustus Reeder [id number] Henrydonald Oswaldra Notes Date Note Type Note Provider Name and Address Organization Details Recorded Time 4 text/htm l Last seen in 2021. Has chronic clear nasal d/c and PND. Frequently clearing his throat Using decongestant sprays intermittentlyPreviously given AtroventHx of cricopharyngeal spasm DOUGLAS OLVERA MD [address] [place] [address], [address] - [facility] 06/30/2024 10:31:33
[2024-08-16 14:21] VITALS: BP 130/62; PULSE 54; O2SAT 97; BMI 30.3
--- NOTE | 2024-08-16 14:21 | A.OFFVIS_ITS ---
Vital Signs 08/16/24 14:21 Height 5 ft 5 in Weight 182 lb BMI 30.3 BP 130/62 Blood Pressure Location Lt brachial Position Sitting Pulse 54 Pulse Source Pulse Oximeter Pulse Oximetry (%) 97 Oxygen Delivery Method Room Air Intake Visit Reasons: dyspnea Intake Note: pt is here for follow up and states he has some coughing, but he feels okay Allergies amlodipine Adverse Reaction (Intermediate, Verified 08/16/24 15:04) leg swelling gabapentin Adverse Reaction (Intermediate, Verified 08/16/24 15:04) lethargy lisinopril Adverse Reaction (Intermediate, Verified 08/16/24 15:04) Cough metformin Adverse Reaction (Intermediate, Verified 08/16/24 15:04) lethargy Medication List - Last Reconciled 08/16/24 by Caitlin Mcduffie MD acetaminophen (Tylenol) 650 mg PO Q4H PRN apixaban (Eliquis) 5 mg PO BID ascorbic acid (vitamin C) 250 mg PO DAILY atorvastatin 80 mg PO DAILY 90 days bethanechol chloride 50 mg PO BID 30 days cholecalciferol (vitamin D3) (Vitamin D3) 25 mcg PO DAILY escitalopram oxalate 10 mg PO DAILY ferrous sulfate 325 mg PO DAILY furosemide 40 mg PO DAILY glipizide ER 5 mg PO DAILY levothyroxine 100 mcg PO DAILY@1100 90 days metoprolol succinate ER 100 mg PO DAILY 90 days multivitamin 1 tab PO DAILY nystatin 1 appl See Protocol topical TID 7 days pregabalin 50 mg PO BID tamsulosin 0.4 mg PO BEDTIME 90 days walker (Ultra-Light Rollator mis) As directed Do you need a note to return to daycare/school/sports/work: No HPI HPI dyspnea: Details: This 78 years old very pleasant gentleman has history of obstructive sleep apnea and has use CPAP for a few years. When he was last seen in May 2024 he had stopped using the CPAP, indicating that he had lost some weight and he no longer has any problem is sleeping. However he regained some weight and started having increased snoring with waking at night a few times. His felt that he was having increased symptoms of sleep apnea so on his last visit I instructed him to start using the CPAP again. He tried for a few nights but could not tolerate, he actually sleeps better without the mask. In the meantime he has lost some weight again. His weight fluctuates according to the amount of fluid retention,. He does have chronic congestive heart failure, and is on furosemide 40 mg daily. Patient also has been on amiodarone for control of his arrhythmias, but his tobacco sieve operator Dr. Su has recently stopped this medicine. There has been a question of interstitial lung disease, and he has had bilateral pleural effusions which resolved with the use of diuretic. He just had a CT scan of the chest which has not been read yet. REPLACED BY [facility] Medical History Shingles CHF (congestive heart failure) Preop exam for internal medicine Bilateral pleural effusion Pneumonia Physical deconditioning CKD (chronic kidney disease) stage 3, GFR 30-59 ml/min (HFpEF) heart failure with preserved ejection fraction Obesity (BMI 30-39.9) LARISSA (obstructive sleep apnea) PAF (paroxysmal atrial fibrillation) Type 2 diabetes mellitus with unspecified complications Peptic ulcer disease Non Hodgkin's lymphoma Anxiety and depression Hypercholesterolemia Vitamin D deficiency Obesity (BMI 30-39.9) Type 2 diabetes mellitus with hyperglycemia Thrombocytopenia Surgical History Hx of cataract extraction History of esophagogastroduodenoscopy (EGD) H/O colonoscopy H/O lymph node biopsy History of shoulder surgery Family History Father Lung cancer Mother Breast cancer Sister Breast cancer Brother Substance use disorder Sister No problems noted. Son No problems noted. Daughter No problems noted. Social History Household Members: Spouse and Children Housing: House Are you a primary dog day care attendant to a significant other at home: No Do you presently have visiting nurse or other home services: No Alcohol intake: never Patient Tobacco Use Status: Never used Tobacco e-Cigarette/Vaping Use: Never Used Second Hand Smoke Exposure: No Advance Directives Date on File: 12/19/21 service: No Current occupational status: retired Cognitive needs: Yes (Walker, cane) Hearing needs: No Vision needs: Yes Review of Systems Const All systems reviewed & are unremarkable except as noted in HPI and below Reports snoring Eyes Reports no additional complaints ENT Reports no additional complaints Card Reports irregular heart rhythm and Reports dyspnea on exertion Resp Denies cough, Reports dyspnea on exertion, Reports snoring and Denies wheezing GI Reports no additional complaints Reports nocturia Musc Reports no additional complaints Skin/Breast Reports system reviewed and no additional complaints, except as documented Neuro Reports no additional complaints Psych Reports no additional complaints Aller/Immun Denies wheezing Physical Exam Vital Signs: Last Vital Signs Pulse 54 08/16/24 14:21 BP 130/62 08/16/24 14:21 Pulse Ox 97 08/16/24 14:21 Oxygen Delivery Method Room Air 08/16/24 14:21 BMI result Body Mass Index 30.3 Has a round face. Narrow oropharynx, Mallampati class 4. Neck size 16-1/2 inch. Const General: comfortable, no acute distress, alert and awake Orientation/consciousness: patient oriented x3 HEENT Head: Yes normal to inspection General nose exam: No nasal polyps present and No nasal discharge present Face and sinus: Yes sinuses nontender Mouth: oropharynx abnormals (Narrow and crowded Mallampati class 4) Throat: Yes posterior oropharynx normal Eyes General: appearance normal, both eyes and all related structures Neck Neck: Yes normal visual inspection, Yes no lymphadenopathy, Yes trachea midline, Yes no JVD and Yes other (Neck circumference 16-1/2 inch) Thyroid: Thyroid normal Chest Chest palpation & inspection: normal inspection of the chest, normal palpation of entire chest wall and no tenderness Resp Other: Percussion note resonant, breath sounds are slightly distant. No wheezes or rhonchi or crepitations are heard . Cardio Palpation: normal PMI Rate: regular rate Rhythm: regular rhythm Heart sounds: no gallops and no murmurs GI Palpation (GI): Soft to palpation, nontender, No hepatosplenomegaly present, no masses and Other GI palpation findings present (Abdomen is moderately obese and protuberant) Auscultation: normal bowel sounds Back/Spine/Pelvis Thoracic/Lumbar Spine: thoracic and lumbar spine normal to inspection Skin General skin exam: no rashes or lesions noted Neuro General: patient oriented x3 and no focal motor deficits Cranial nerves: Yes CN's II-XII intact bilaterally Extrem General: Yes normal to inspection, Yes no clubbing, cyanosis or edema and Yes no calf tenderness Psych Appearance: grossly normal and well kempt Speech and movement: Normal speech and movement present Assessment & Plan Assessment & Plan (1) LARISSA (obstructive sleep apnea): Comment: PATIENT HAS HISTORY OF OBSTRUCTIVE SLEEP APNEA AND USED TO BE ON CPAP REGULARLY. SINCE THE LAST YEAR HE HAS NOT USED CPAP AT ALL AND WAS SLEEPING OK. ON HIS LAST VISIT IN MAY HE HAD COMPLAINED OF GASPING AND WAKING A FEW TIMES DURING THE NIGHT ALONG WITH SNORING. HE WAS ADVISED TO RESTART THE CPAP, WHICH HE TRIED BUT COULD NOT. HE SAY IS NOW HE SLEEPS OKAY AND ACCORDING TO HIS HIS SNORING IS MINIMAL. Code(s): G47.33 - Obstructive sleep apnea (adult) (pediatric) Category: Medical Plan: OK TO GO WITHOUT THE CPAP. HOWEVER HE NEEDS TO WATCH HIS WEIGHT. (2) Restrictive lung disease: Comment: PULMONARY FUNCTION TEST SHOWS MODERATELY SEVERE RESTRICTIVE PULMONARY DISORDER, THIS WAS MAINLY DUE TO HIS OBESITY AND CHF. WHICH HAS IMPROVED SIGNIFICANTLY Code(s): J98.4 - Other disorders of lung Category: Medical Plan: ADVISED TO KEEP ON DOING DEEP BREATHING EXERCISES. MAKE SURE TO TAKE HIS DIURETIC THERAPY REGULARLY, AND KEEP HIS WEIGHT DOWN. (3) Pleural effusion: Comment: PATIENT HAS HAD MODERATELY LARGE PLEURAL EFFUSION BILATERALLY MOSTLY DUE TO CONGESTIVE HEART FAILURE. NOW THAT HE IS ON DIURETIC THERAPY IS RESIDUAL EFFUSIONS ARE SMALL IN SIZE. CT SCAN OF THE CHEST WHICH HE JUST HAD SHOWS SMALL PLEURAL EFFUSIONS ON BOTH SIDE. Code(s): J90 - Pleural effusion, not elsewhere classified Category: Medical Plan: CONTINUE TAKING DIURETIC THERAPY PRESCRIBED BY THE COMMERCIAL LEASING MANAGER (4) Dyspnea on exertion: Comment: DYSPNEA ON EXERTION, MULTIFACTORIAL, CONTRIBUTED BY: RESTRICTIVE PULMONARY DISORDER WELL CHF . IT HAS IMPROVED AFTER HE WAS STARTED ON DIURETIC THERAPY. HIS COMMERCIAL LEASING MANAGER HAS TAKEN HIM OFF THE AMIODARONE Code(s): R06.09 - Other forms of dyspnea Category: Medical Plan: CONTINUE FOLLOW-UP WITH THE CARDIOLOGY SERVICE KEEP ON DOING DEEP BREATHING EXERCISES 2 TO 3 TIMES A DAY. Coding Level of Care Code Est Pt Level 3 (84008) Diagnoses LARISSA (obstructive sleep apnea) G47.33 Restrictive lung disease J98.4 Pleural effusion J90 Dyspnea on exertion R06.09
== END 2024-08-16 15:01 | disposition home or self-care (01) ==
PROVIDERS: PCP Internal Medicine; Visit Provider Internal Medicine
DX: G47.33 Obstructive sleep apnea (adult) (pediatric) (principal); J98.4 Other disorders of lung; J90 Pleural effusion, not elsewhere classified; R06.09 Other forms of dyspnea
CPT/HCPCS: 99213

== ENCOUNTER → 2024-08-16 14:09 | Outpatient (BNVA) | payer MEDICARE, SELFPAY | PROVIDERS: PCP Internal Medicine; Visit Provider Internal Medicine | DX: J98.4 Other disorders of lung (principal); J90 Pleural effusion, not elsewhere classified; R06.09 Other forms of dyspnea; G47.33 Obstructive sleep apnea (adult) (pediatric) | CPT/HCPCS: 99212 ==

== ENCOUNTER 2024-08-17 08:07 | Outpatient (REF) | payer MEDICARE, SELFPAY ==
[2024-08-17 08:23] LABS: MANUAL DIFF FLAG NO
[2024-08-17 09:04] LABS: Basophils Percent Auto 0.6 % (0-2); Eosinophils Absolute Auto 0.3 X10*3/uL (0.0-0.4); Eosinophils Percent Auto 6.1 % (0-4); Hematocrit 37.6 % (42.0-52.0); Hemoglobin 11.9 g/dl (14.0-18.0); Imm Gran Abs Auto 0.03 X10*3/uL (0.00-0.03); Imm Gran Pct Auto 0.6 % (0.0-0.4); Lymphocytes Absolute Auto 1.3 X10*3/uL (1.2-4.9); Lymphocytes Percent Auto 24.2 % (20-40); Mean Corpuscular HGB Conc 31.6 g/dl (31.0-36.0); Mean Corpuscular Hemoglobin 25.1 pg (27.0-33.0); Mean Corpuscular Volume 79.3 fL (80.0-98.0); Monocytes Absolute Auto 0.6 X10*3/uL (0.1-1.2); Monocytes Percent Auto 10.2 % (2-11); Neutrophils Absolute Auto 3.1 x10*3/uL (2.0-8.3); Neutrophils Percent Auto 58.3 % (45-73); Platelet Count 160 X10*3/uL (160-400); Red Blood Count 4.74 X10*6/uL (4.60-5.80); Red Cell Distribution Width 18.7 % (11.0-16.0); White Blood Count 5.4 X10*3/uL (4.8-10.8)
[2024-08-17 09:35] LABS: Alanine Aminotransferase 53 U/L (0-40); Albumin Level 3.7 g/dL (3.5-5.0); Alkaline Phosphatase 115 U/L (39-117); Anion Gap 10 (12-20); Aspartate Amino Transferase 76 U/L (5-37); Blood Urea Nitrogen 24 mg/dL (9-16); Calcium 8.9 mg/dL (8.4-10.2); Carbon Dioxide 29 mmol/L (22-29); Chloride 106 mmol/L (96-108); Cholesterol 120 mg/dL (<200); Estimated Glomerular Filt Rate 54; Glucose Random 91 mg/dL (60-115); HDL Cholesterol 33 mg/dL (>40); LDL Cholesterol Calculated 67 mg/dL (<100); Potassium 4.4 mmol/L (3.3-5.1); Sodium 141 mmol/L (135-145); Total Protein 6.9 g/dL (6.5-8.0); Triglycerides 104 mg/dL (<150)
[2024-08-17 09:40] LABS: B Type Natriuretic Peptide 291 pg/mL (<100)
[2024-08-17 09:42] LABS: Bilirubin Total 0.6 mg/dL (0.0-1.0)
== END 2024-08-17 08:08 | disposition home or self-care (01) ==
LOC: HO.LAB 08:07
PROVIDERS: PCP Internal Medicine; Visit Provider Internal Medicine
DX: E78.00 Pure hypercholesterolemia, unspecified (principal); I50.32 Chronic diastolic (congestive) heart failure
CPT/HCPCS: 36415; 80053; 80061; 83880; 85025

== ENCOUNTER 2024-08-21 14:49 | Outpatient (AMB) | payer MEDICARE, SELFPAY ==
--- NOTE | 2024-08-21 14:53 | MHC.PC.OV ---
Vital Signs 08/21/24 14:56 Height 5 ft 5 in Weight 180 lb 8 oz BMI 30.0 BP 130/66 Blood Pressure Location Lt brachial Position Sitting Pulse 52 Pulse Source Pulse Oximeter Pulse Oximetry (%) 96 Oxygen Delivery Method Room Air Intake Visit Reasons: Pre-operative H&P Intake Note: Patient is here for a Pre-op for Eye lid surgery scheduled with Dr Metz on 08/28/24. Route Sales Delivery Driver Required: No Dimension Quarry Supervisor: Present Accompanied by: Spouse Allergies amlodipine Adverse Reaction (Intermediate, Verified 08/21/24 15:21) leg swelling gabapentin Adverse Reaction (Intermediate, Verified 08/21/24 15:21) lethargy lisinopril Adverse Reaction (Intermediate, Verified 08/21/24 15:21) Cough metformin Adverse Reaction (Intermediate, Verified 08/21/24 15:21) lethargy Medication List - Last Reconciled 08/21/24 by Gaby Tinsley PA-C acetaminophen (Tylenol) 650 mg PO Q4H PRN albuterol sulfate 90 mcg/actuation 2 puffs inhalation Q4-6H PRN 60 days apixaban (Eliquis) 5 mg PO BID ascorbic acid (vitamin C) 250 mg PO DAILY atorvastatin 80 mg PO DAILY 90 days bethanechol chloride 50 mg PO BID 30 days cholecalciferol (vitamin D3) (Vitamin D3) 25 mcg PO DAILY escitalopram oxalate 10 mg PO DAILY ferrous sulfate 325 mg PO DAILY furosemide 40 mg PO DAILY glipizide ER 5 mg PO DAILY levothyroxine 100 mcg PO DAILY@1100 90 days metoprolol succinate ER 100 mg PO DAILY 90 days multivitamin 1 tab PO DAILY nystatin 1 appl See Protocol topical TID 7 days pregabalin 50 mg PO BID tamsulosin 0.4 mg PO BEDTIME 90 days walker (Ultra-Light Rollator misc) As directed Tobacco use date assessed: 08/21/24 Fall risk assessment: No Falls in past year Last assessed Fall Risk: 08/21/24 Dental Screening Dental Screen Date: 08/21/24 Did you have a dental visit in the last 12 months?: Yes Did you have a dental problem in the last 6 months where you did not have access to dental care?: No Was dental information given to patient?: Patient has dentist HPI Pre-operative H&P HPI Details 78-year-old male with past medical history of diabetes mellitus, atrial fibrillation, hypothyroidism, obstructive sleep apnea, congestive heart failure, hypercholesterolemia, hypertension and BPH last seen 05/[address] Peters coming in for preoperative visit. Patient is scheduled to have left-sided eyelid surgery with Dr. Bernstein 08/28/2024. EKG completed 06/27/2024 showing sinus bradycardia with first-degree AV block and prolonged QT. Diabetes mellitus: Presently on glipizide 5 mg A1c 5.3% glipizide will be discontinued at this time. Hypertension: Blood pressure today 130/66 presently on metoprolol 100 mg Atrial fibrillation: Rate controlled on metoprolol and currently on Eliquis for anticoagulation. [facility] Medical History Shingles CHF (congestive heart failure) Preop exam for internal medicine Bilateral pleural effusion Pneumonia Physical deconditioning CKD (chronic kidney disease) stage 3, GFR 30-59 ml/min (HFpEF) heart failure with preserved ejection fraction Obesity (BMI 30-39.9) LARISSA (obstructive sleep apnea) PAF (paroxysmal atrial fibrillation) Type 2 diabetes mellitus with unspecified complications Peptic ulcer disease Non Hodgkin's lymphoma Anxiety and depression Hypercholesterolemia Vitamin D deficiency Obesity (BMI 30-39.9) Type 2 diabetes mellitus with hyperglycemia Thrombocytopenia Surgical History Hx of cataract extraction History of esophagogastroduodenoscopy (EGD) H/O colonoscopy H/O lymph node biopsy History of shoulder surgery Family History Father Lung cancer Mother Breast cancer Sister Breast cancer Brother Substance use disorder Sister No problems noted. Son No problems noted. Daughter No problems noted. Social History Household Members: Spouse and Children Housing: House Are you a primary daycare director to a significant other at home: No Do you presently have visiting nurse or other home services: No Alcohol intake: never Patient Tobacco Use Status: Never used Tobacco e-Cigarette/Vaping Use: Never Used Second Hand Smoke Exposure: No Advance Directives Date on File: 12/19/21 service: No Current occupational status: retired Cognitive needs: Yes (Walker, canniki) Hearing needs: No Vision needs: Yes (Glasses) Questionnaire PHQ-9 Over the last 2 weeks, how often have you been bothered by any of the following problems? 1. Little interest or pleasure in doing things: not at all 2. Feeling down, depressed, or hopeless: not at all 3. Trouble falling or staying asleep, or sleeping too much: not at all 4. Feeling tired or having little energy: not at all 5. Poor appetite or overeating: not at all 6. Feeling bad about yourself - or that you are a failure or have let yourself or your family down: not at all 7. Trouble concentrating on things, such as reading the newspaper or watching television: not at all 8. Moving or speaking so slowly that other people could have noticed. Or the opposite - being so fidgety or restless that you have been moving around a lot more than usual: not at all 9. Thoughts that you would be better off or of hurting yourself in some way: not at all Total score: 0 Depression Screening Interpretation: Negative Depression Screening Done: Yes Source: Developed by Drs. Simon Zhou, Latisha Huang, Ayo Rodríguez and colleagues, with an educational skye from [employer]. Thrive Questionnaire Date Thrive assessed: 08/21/24 I am a: Patient What is your living situation today?: I have a steady place to live Within the past 12 months, did the food you bought not last and you didn't have the money to get more?: Never true Within the past 12 months, did you worry whether your food would run out before you got money to buy more?: Never true Do you have trouble paying for medicines?: No Do you have trouble getting transportation to medical appointments?: No Do you have trouble paying your heating and electricity bill?: No Do you have trouble taking care of your child, family member or friend?: No Do you have trouble with day-to-day activities such as bathing, preparing meals, shopping, managing finances, etc.?: No Are you currently unemployed and looking for a job?: No Are you interested in more education?: No Please select the resources that you would like help with: None Currently or been in a relationship where the following occur: No concerns reported THRIVE Score: 0 AUDIT C Alcohol Use Questionnaire (AUDIT-C) 1. How often do you have a drink containing alcohol?: Never 2. How many drinks containing alcohol do you have on a typical day when you are drinking?: 1 or 2 3. How often do you have six or more drinks on one occasion?: Never Total Score: 0 AIDAN-7 AMB Questionnaire AIDAN-7 Date AIDAN - 7 assessed: 08/21/24 Feeling nervous, anxious, or on edge: 0 = Not at all Not being able to stop or control worryin = Not at all Worrying too much about different things: 0 = Not at all Trouble relaxin = Not at all Being so restless that it is hard to sit still: 0 = Not at all Becoming easily annoyed or irritable: 0 = Not at all Feeling afraid as if something awful might happen: 0 = Not at all Total AIDAN-7 score (0-4 normal; 5-9 mild; 10-14 moderate; 15-21 severe): 0 Source: Developed by Drs. Simon Zhou, Latisha Huang, Ayo Rodríguez and colleagues, with an educational skye from [employer]. Review of Systems Const Denies body aches, Denies chills, Denies fever(s), Denies headache(s) and Denies poor appetite Eyes Reports no additional complaints ENT Denies dizziness and Denies headache(s) Card Denies chest pain, Denies syncope, Denies edema, Denies irregular heart rhythm, Denies lightheadedness and Denies dyspnea Resp Denies cough and Denies dyspnea GI Denies abdominal pain, Denies diarrhea, Denies nausea and Denies vomiting Reports no additional complaints Musc Reports no additional complaints and Denies abnormal gait Skin/Breast Reports system reviewed and no additional complaints, except as documented Neuro Denies abnormal gait, Denies dizziness, Denies syncope and Denies headache(s) Psych Reports no additional complaints Physical exam (Primary Care) Vital Signs: Last Vital Signs Pulse 52 08/21/24 14:56 BP 130/66 08/21/24 14:56 Pulse Ox 96 08/21/24 14:56 Oxygen Delivery Method Room Air 08/21/24 14:56 BMI result Body Mass Index 30.0 Tobacco/Smoking Status: Tobacco use Status Tobacco use date assessed 08/21/24 08/21/24 15:04 Patient Tobacco Use Status Never used Tobacco 08/21/24 15:04 e-Cigarette/Vaping Use Never Used 08/21/24 15:04 PHQ-9: PHQ-9 Score PHQ-9: Total score 0 08/21/24 15:10 Depression Screening Interpretation: Negative Thrive Assessment: Date of Thrive Assessment Date Thrive assessed 08/21/24 08/21/24 15:04 Currently or been in a relationship where the following occur: No concerns reported Const General: cooperative, healthy appearing, comfortable and no acute distress Orientation/consciousness: patient oriented x3 HENMT Head: Yes normocephalic Ears: hearing grossly normal bilaterally General nose exam: Normal external nose present Eyes General: appearance normal, both eyes and all related structures Conjunctivae: conjunctivae normal Neck Neck: Yes full ROM and Yes no lymphadenopathy Resp Effort & Inspection: normal respiratory effort Auscultation: clear to auscultation bilaterally, no crackles, no rales, no rhonchi and no wheezes Cardio Rate: regular rate Rhythm: regular rhythm Skin General skin exam: no rashes or lesions noted Neuro General: patient oriented x3 Gait exam (Neuro): Normal gait present Extrem General: Yes normal to inspection, Yes full ROM and No edema Psych Affect: normal affect Attitude: cooperative Insight: Good insight present (Psych) Judgement: Good judgement present (Psych) Results AMB Hemoglobin A1c AMB Hemoglobin A1c 5.3 % Last Edit by MIGUELITO Silverman on 08/21/24 15:29 Coding Level of Care Code Est Pt Level 4 (75383) Diagnoses Pre-op evaluation Z01.818 Elevated LFTs R79.89 Type 2 diabetes mellitus with hyperglycemia, without long-term current use of insulin E11.65 Diabetes mellitus long term care social worker insulin use: without long term care social worker use Assessment & Plan Assessment & Plan (1) Pre-op evaluation: Code(s): Z01.818 - Encounter for other preprocedural examination Category: Medical Plan: Regarding preop clearance, the patient is at moderate risk for proposed surgery due to age and comorbidities which are well managed at this time. Reviewed with the patient that no surgery is completely free of risk and that this examination is to assist the surgeon in reviewing informed consent. Discussed with patient he may take all medications up until the day of the procedure with the exception of Eliquis. Medications should be held on the day of the procedure and may continue after the procedure is completed. Discussed with Dr. Peters and Eliquis may be discontinued 2 days prior to procedure. EKG and blood work evaluated - last EKG 06/2024 if surgery would like a more recent EKG this can be ordered. No further workup needed at this time and may proceed with the contemplated procedure. Thank you very much for letting me participate in the care of this patient (2) Elevated LFTs: Code(s): R79.89 - Other specified abnormal findings of blood chemistry Category: Medical Plan: Ordered for abdominal ultrasound for new elevation of LFTs. Repeat LFTs in 1 week. (3) Type 2 diabetes mellitus with hyperglycemia: Comment: dx ~ 2014-does not check glucose at home Code(s): E11.65 - Type 2 diabetes mellitus with hyperglycemia Category: Medical Qualifiers: Diabetes mellitus fdc insulin use: without long term care social worker use Qualified Code(s): E11.65 - Type 2 diabetes mellitus with hyperglycemia Plan: A1c 5.3% today which is much below the goal for diabetes mellitus. We will discontinue glipizide 5 mg at this time due to risk of hypoglycemia and we will follow up in 3 months. Plan This note was constructed using voice recognition software. While every effort has been made to ensure accuracy and survey researcher, still areas may have been included sometimes these areas may affect the content or meeting of the given symptoms. Total time spent caring for the patient today was 30 minutes. This includes time spent before the visit reviewing the chart, time spent during the visit, and time spent after the visit and documentation. Orders: Orders Complete Blood Count Auto Diff 3 Months Z00.00 - Encounter for general adult medical examination without abnormal findings Comprehensive Met. Panel 3 Months Z00.00 - Encounter for general adult medical examination without abnormal findings Liver Panel Today R79.89 - Other specified abnormal findings of blood chemistry AMB Hemoglobin A1c Today E11.65 - Type 2 diabetes mellitus with hyperglycemia B Type Natriuretic Peptide 3 Months M79.89 - Other specified soft tissue disorders US abdomen complete Today R79.89 - Other specified abnormal findings of blood chemistry Medications: On Hold glipizide ER Hold Comment: Low A1c 5 mg PO DAILY 90 tabs 2RF E11.65 - Type 2 diabetes mellitus with hyperglycemia
[2024-08-21 14:56] VITALS: BP 130/66; PULSE 52; O2SAT 96
--- OUTSIDE RECORDS SUMMARY | 2024-08-21 18:48 | XMS_ITS | Data Portability ---
Author Organization [place] - [facility], Allergy Address [address] [address] Care Team Providers Care Regional Planner Name Role Phone CARLA MONCADA Primary Care Provider Assessment No assessment recorded. Plan of Treatment Reminders Order Date Submit Date Provider Last Modified By Organization Details Last Modified Time Details Appointments None recorded. Lab None recorded. Referral None recorded. Procedures None recorded. Surgeries None recorded. Imaging None recorded. Medication Orders ipratropium bromide 21 mcg (0.03 %) nasal spray 2023 024 [place] [facility], [address] [place] [address], [facility] 600, [place], [place], [phone], 4 10:26:51 Patient TargetsNo targets recorded. Patient InstructionsNo instructions recorded. Reason for Referral None Reported. Problems Name Problem SNOMED Code Status Onset Date Resolution Date Notes Provider Name and Address Organization Details Recorded Time [facility] ce of salivary secretion 95318274 Active 2021 [facility] camille of salivary secretion ; Note: Date Diagnosed : 2 4:44 PM (K11.7) Not Available [facility] 4 03:11:05 Chronic rhinitis 55957826 Active 2021 Chronic rhinitis; Note: Date Diagnosed : 2 4:44 PM (J31.0) Not Available [facility] 4 03:11:06 Feeling of lump in throat 345345049 Active 2023 DOUGLAS NARANJO MD 100 [facility] 100, [facility] [place], [address] , [facility] - [facility] [place] 4 10:19:36 Posterior rhinorrhe a 41311932 Active 2023 DOUGLAS NARANJO MD 100 [facility],[place] [address], [place] [place], [address] , [facility] - [facility] 4 10:19:44 Ptosis of left upper eyelid 30045315910 9107 Active 2023 DOUGLAS NARANJO MD 100 [facility],[place] [address], [facility] [place], [address] , [facility] - [facility] 4 10:29:43 Allergic rhinitis 37240233 Active 2023 Silke márquez, [place] - [facility] [place] 4 13:36:28 Problem Notes None recorded. Procedures Surgical History Date Name Laterality Status Provider Name and Address Organization Details Recorded Time 06/30/20 24 Fiberoptic Laryngoscopy (Comprehensive) completed DOUGLAS OLVERA MD 100 [facility],[place] [address], [place], [address], [facility] - [facility] 06/30/2024 10:25:51 proximal subtotal gastrectomy by abdominal approach completed Harrison Garcia [place] - [facility] 06/30/2024 10:25:00 Imaging Results None recorded. Procedure Notes None recorded. Medical Equipment None Reported. Medications Name Sig Start Date Stop Date Status Note LastModified by Organization Details LastModified Time losartan 50 mg tablet active Medicati on ID: [id number] B rand Name: losartan Send Method: E-Prescr [...] 10 mg tablet active Medicati on ID: [id number] B rand Name: amlodipi ne Send Method: E-Prescr ibed Sub s Allowed: subs OK Medic ationGen ericName : amlodipi ne Not Available Not Available Not Available cephalexi n 500 mg capsule TAKE 1 CAPSULE BY MOUTH EVERY 6 HOURS FOR 7 DAYS 06/30 completed Not Available Not Available Not Available furosemid e 20 mg tablet active Medicati on ID: [id number] B rand Name: furosemi de Send Method: [...] spray three times a day as directed 2024 active Not Available Not Available Not Avai [...] Updated DateTime 06/30/2024 165.1 cm 29.5 kg/m2 65201.85 g Harrison Garcia [place] - [facility] 06/30/2024 09:57:49 Social History None recorded. Functional Status None recorded. Mental Status None recorded. Family History Nothing Reported. Medical History Condition Response Heart Problems Y Asthma Y Past Encounters Encounter ID Performer Location Encounter Start Date Encounter Closed Date Diagnosis/Indication Diagnosis SNOMED-CT Code Diagnosis ICD10 Code Diagnosis Note [id number] DOUGLAS NARANJO MD [facility] [address] [address] 06/30/2024 09:41:04 06/30/2024 10:32:04 Chronic rhinitis 49910532 J31.0 Patient with chronic nasal drainage, postnasal [...] left ptosis Feeling of lump in throat 195561259 R09.89 We also discussed that some of his symptoms are likely due to his known history of cricophary ngeal spasm. I do not see any pooling of secretions that would suggest significan t obstructio n requiring any interventi on. Posterior rhinorrhea 758 74677 R09.82 Ptosis of left upper eyelid 4173917490 84271 H02.402 Health Concerns Section Related Observation LastModified by Organization Detai ls LastModified Time None Recorded Concern Status LastModified by Organization Details LastModified Time None Recorded Advance Directives Directive None Recorded Payers Encounter Date Sequence Insurance Name Policy Number Policy Wallace Covered Member ID Wallace Member ID Guarantor Name 06/30/2024 1 [facility] [id number] 1 Augustus Reeder [id number] Henrydonald Oswaldra Notes Date Note Type Note Provider Name and Address Organization Details Recorded Time 4 text/htm l Last seen in 2021. Has chronic clear nasal d/c and PND. Frequently clearing his throat Using decongestant sprays intermittentlyPreviously given AtroventHx of cricopharyngeal spasm DOUGLAS OLVERA MD [address] [place] [address], [phone], [facility] - [facility] 06/30/2024 10:31:33
--- OUTSIDE RECORDS SUMMARY | 2024-08-21 18:49 | XMS_ITS | Continuity of Care Document ---
Author Organization [place] - [facility], [facility] Address [address] [place] [address] Care Team Providers Care Security Operations Center Analyst Name Role Phone CARLA MONCADA Primary Care Provider [phone] Assessment No assessment recorded. Plan of Treatment Reminders Order Date Submit Date Provider Last Modified By Organization Details Last Modified Time Details Appointments None recorded. Lab None recorded. Referral None recorded. Procedures None recorded. Surgeries None recorded. Imaging None recorded. Medication Orders ipratropium bromide 21 mcg (0.03 %) nasal spray 2023 024 [facility], [address] [place] [address], [place], [place], [phone], 4 10:26:51 Patient TargetsNo targets recorded. Patient InstructionsNo instructions recorded. Reason for Referral None Reported. Problems Name Problem SNOMED Code Status Onset Date Resolution Date Notes Provider Name and Address Organization Details Recorded Time [facility] ce of salivary secretion 10364607 Active 2021 [facility] of salivary secretion ; Note: Date Diagnosed : 2 4:44 PM (K11.7) Not Available [facility] 4 03:11:05 Chronic rhinitis 06506382 Active 2021 Chronic rhinitis; Note: Date Diagnosed : 2 4:44 PM (J31.0) Not Available [facility] 4 03:11:06 Feeling of lump in throat 996480760 Active 2023 DOUGLAS NARANJO MD [address] [place] [address], [place], [address] , [facility] - [facility] [place] 4 10:19:36 Posterior rhinorrhe a 37687598 Active 2023 DOUGLAS NARANJO MD 100 [facility],[place] [address], [facility] [place], [address] , [facility] - [facility] [place] 4 10:19:44 Ptosis of left upper eyelid 93574720069 9107 Active 2023 DOUGLAS NARANJO MD 100 [facility],[place] [address], [facility] [place], [address] , [facility] - [facility] [place] 4 10:29:43 Allergic rhinitis 27854705 Active 2023 [place] - [facility] [place] 4 13:36:28 Problem Notes None recorded. Procedures Surgical History Date Name Laterality Status Provider Name and Address Organization Details Recorded Time 06/30/20 24 Fiberoptic Laryngoscopy (Comprehensive) completed DOUGLAS OLVERA MD 100 [facility],[place] [address], [place], [address], [facility] - [facility] 06/30/2024 10:25:51 proximal subtotal gastrectomy by abdominal approach completed Harrison Garcia [place] - [facility] 06/30/2024 10:25:00 Imaging Results None recorded. Procedure Notes None recorded. Medical Equipment None Reported. Medications Name Sig Start Date Stop Date Status Note LastModified by Organization Details LastModified Time losartan 50 mg tablet active Medicati on ID: [id number] B rand Name: losartan Send Method: E-Prescr [...] 10 mg tablet active Medicati on ID: [id number] B rand Name: amlodipi ne Send Method: E-Prescr ibed Sub s Allowed: subs OK Medic ationGen ericName : amlodipi ne Not Available Not Available Not Available cephalexi n 500 mg capsule TAKE 1 CAPSULE BY MOUTH EVERY 6 HOURS FOR 7 DAYS 06/30 completed Not Available Not Available Not Available furosemid e 20 mg tablet active Medicati on ID: [id number] B rand Name: furosemi de Send Method: [...] Updated DateTime 06/30/2024 165.1 cm 29.5 kg/m2 65574.85 g Harrison Garcia [place] - [facility] 06/30/2024 09:57:49 Social History None recorded. Functional Status None recorded. Mental Status None recorded. Family History Nothing Reported. Medical History Condition Response Heart Problems Y Asthma Y Past Encounters Encounter ID Performer Location Encounter Start Date Encounter Closed Date Diagnosis/Indication Diagnosis SNOMED-CT Code Diagnosis ICD10 Code Diagnosis Note [id number] DOUGLAS NARANJO MD [facility] [address] [address] 06/30/2024 09:41:04 06/30/2024 10:32:04 Chronic rhinitis 34654367 J31.0 Patient with chronic nasal drainage, postnasal [...] left ptosis Feeling of lump in throat 273631044 R09.89 We also discussed that some of his symptoms are likely due to his known history of cricophary ngeal spasm. I do not see any pooling of secretions that would suggest significan t obstructio n requiring any interventi on. Posterior rhinorrhea 758 34606 R09.82 Ptosis of left upper eyelid 3730256338 08424 H02.402 Health Concerns Section Related Observation LastModified by Organization Detai ls LastModified Time None Recorded Concern Status LastModified by Organization Details LastModified Time None Recorded Payers Encounter Date Sequence Insurance Name Policy Number Policy Wallace Covered Member ID Wallace Member ID Guarantor Name 06/30/2024 1 [facility] [id number] 1 Augustus Oswaldra [id number] Henrydonald Varinder Notes Date Note Type Note Provider Name and Address Organization Details Recorded Time 4 text/htm l Last seen in 2021. Has chronic clear nasal d/c and PND. Frequently clearing his throat Using decongestant sprays intermittentlyPreviously given AtroventHx of cricopharyngeal spasm DOUGLAS OLVERA MD [address] [place] [address], [phone], [place] - [facility] 06/30/2024 10:31:33
== END 2024-08-21 15:37 | disposition home or self-care (01) ==
PROVIDERS: PCP Internal Medicine
DX: Z01.818 Encounter for other preprocedural examination (principal); R79.89 Other specified abnormal findings of blood chemistry; E11.65 Type 2 diabetes mellitus with hyperglycemia

== ENCOUNTER → 2024-08-21 14:49 | Outpatient (BNVA) | payer MEDICARE, SELFPAY | PROVIDERS: PCP Internal Medicine | DX: Z01.818 Encounter for other preprocedural examination (principal); R79.89 Other specified abnormal findings of blood chemistry; E11.65 Type 2 diabetes mellitus with hyperglycemia | CPT/HCPCS: 83036; 99212 ==

== ENCOUNTER 2024-08-28 08:54 | Day surgery (SDC) | payer MEDICARE, SELFPAY ==
--- OUTSIDE RECORDS SUMMARY | 2024-07-21 08:40 | XMS_ITS | Data Portability ---
Author Organization [place] - [facility], Allergy Address [address] [address] Care Team Providers Care Scientist Engineer Name Role Phone CARLA MONCADA Primary Care Provider Assessment No assessment recorded. Plan of Treatment Reminders Order Date Submit Date Provider Last Modified By Organization Details Last Modified Time Details Appointments None recorded. Lab None recorded. Referral None recorded. Procedures None recorded. Surgeries None recorded. Imaging None recorded. Medication Orders ipratropium bromide 21 mcg (0.03 %) nasal spray 2023 024 [place] [facility], [address] [place] [address], [facility], [place], [place], [id number], 4 10:26:51 Patient TargetsNo targets recorded. Patient InstructionsNo instructions recorded. Reason for Referral None Reported. Problems Name Problem SNOMED Code Status Onset Date Resolution Date Notes Provider Name and Address Organization Details Recorded Time [facility] ce of salivary secretion 21046409 Active 2021 [facility] camille of salivary secretion ; Note: Date Diagnosed : 2 4:44 PM (K11.7) Not Available [facility] 4 03:11:05 Chronic rhinitis 06055011 Active 2021 Chronic rhinitis; Note: Date Diagnosed : 2 4:44 PM (J31.0) Not Available [facility] 4 03:11:06 Feeling of lump in throat 363630891 Active 2023 DOUGLAS NARANJO MD 100 [facility] 100, [facility] [place], [address] , [facility] - [facility] [place] 4 10:19:36 Posterior rhinorrhe a 76415413 Active 2023 DOUGLAS NARANJO MD 100 [facility],[place] [address], [place], [address] , [facility] - [facility] 4 10:19:44 Ptosis of left upper eyelid 06303526680 9107 Active 2023 DOUGLAS NARANJO MD 100 [facility],[place] [address], [place], [address] , [facility] - [facility] 4 10:29:43 Problem Notes None recorded. 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 Procedure Notes None recorded. Medical Equipment None Reported. Medications Name Sig Start Date Stop Date Status Note LastModified by Organization Details LastModified Time losartan 50 mg tablet active Medicati on ID: [id number] B rand Name: losartan Send Method: E-Prescr [...] 10 mg tablet active Medicati on ID: [id number] B rand Name: amlodipi ne Send Method: E-Prescr ibed Sub s Allowed: subs OK Medic ationGen ericName : amlodipi ne Not Available Not Available Not Available cephalexi n 500 mg capsule TAKE 1 CAPSULE BY MOUTH EVERY 6 HOURS FOR 7 DAYS 06/30 completed Not Available Not Available Not Available furosemid e 20 mg tablet active Medicati on ID: [id number] B rand Name: furosemi de Send Method: [...] Updated DateTime 06/30/2024 165.1 cm 29.5 kg/m2 57481.85 g Harrison Garcia [place] - [facility] 06/30/2024 09:57:49 Social History None recorded. Functional Status None recorded. Mental Status None recorded. Family History Nothing Reported. Medical History Condition Response Heart Problems Y Asthma Y Past Encounters Encounter ID Performer Location Encounter Start Date Encounter Closed Date Diagnosis/Indication Diagnosis SNOMED-CT Code Diagnosis ICD10 Code [id number] DOUGLAS NARANJO MD ENTS [address] [address] 06/30/2024 09:41:04 06/30/2024 10:32:04 Chronic rhinitis 65394002 J31.0 Feeling of lump in throat 167282196 R09.89 Posterior rhinorrhea 758 32905 R09.82 Ptosis of left upper eyelid 1347324808 18081 H02.402 Health Concerns Section Related Observation LastModified by Organization Detai ls LastModified Time None Recorded Concern Status LastModified by Organization Details LastModified Time None Recorded Advance Directives Directive None Recorded Payers Encounter Date Sequence Insurance Name Policy Number Policy Wallace Covered Member ID Wallace Member ID Guarantor Name 06/30/[address] [place] [address] [id number] 1 Henrydonald Oswaldra [id number] Augustus Reeder Notes Date Note Type Note Provider Name and Address Organization Details Recorded Time 4 text/htm l Last seen in 2021. Has chronic clear nasal d/c and PND. Frequently clearing his throat Using decongestant sprays intermittentlyPreviously given AtroventHx of cricopharyngeal spasm DOUGLAS OLVERA MD [address] [place] [address], [address], [place] - [facility] 06/30/2024 10:31:33
--- OUTSIDE RECORDS SUMMARY | 2024-07-21 08:40 | XMS_ITS | Continuity of Care Document ---
Author Organization [place] - [facility], E[facility] Address [address] [place] [address] Care Team Providers Care Tunnel Elastic Operator Chainstitch Name Role Phone CARLA MONCADA Primary Care Provider Assessment No assessment recorded. Plan of Treatment Reminders Order Date Submit Date Provider Last Modified By Organization Details Last Modified Time Details Appointments None recorded. Lab None recorded. Referral None recorded. Procedures None recorded. Surgeries None recorded. Imaging None recorded. Medication Orders ipratropium bromide 21 mcg (0.03 %) nasal spray 2023 024 [facility], [address] [place] [address], [place], [place], [phone], 4 10:26:51 Patient TargetsNo targets recorded. Patient InstructionsNo instructions recorded. Reason for Referral None Reported. Problems Name Problem SNOMED Code Status Onset Date Resolution Date Notes Provider Name and Address Organization Details Recorded Time [facility] ce of salivary secretion 33716617 Active 2021 [facility] cam[facility] of salivary secretion ; Note: Date Diagnosed : 2 4:44 PM (K11.7) Not Available [facility] 4 03:11:05 Chronic rhinitis 44682274 Active 2021 Chronic rhinitis; Note: Date Diagnosed : 2 4:44 PM (J31.0) Not Available [facility] 4 03:11:06 Feeling of lump in throat 472794240 Active 2023 DOUGLAS NARANJO MD [address] [place] [address], [place], [address] , [facility] - [facility] 4 10:19:36 Posterior rhinorrhe a 00468636 Active 2023 DOUGLAS NARANJO MD 100 [facility],[place] [address], [place], [address] , [facility] - [facility] 4 10:19:44 Ptosis of left upper eyelid 31508459004 9107 Active 2023 DOUGLAS NARANJO MD 100 [facility],[place] [address], [place], [address] , [facility] - [facility] [place] 4 10:29:43 Problem Notes None recorded. Procedures Surgical History Date Name Laterality Status Provider Name and Address Organization Details Recorded Time 06/30/20 24 Fiberoptic Laryngoscopy (Comprehensive) completed DOUGLAS OLVERA MD 100 [facility],[place] [address], [place], [address], 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 Procedure Notes None recorded. Medical Equipment None Reported. Medications Name Sig Start Date Stop Date Status Note LastModified by Organization Details LastModified Time losartan 50 mg tablet active Medicati on ID: [id number] B rand Name: losartan Send Method: E-Prescr [...] 10 mg tablet active Medicati on ID: [id number] B rand Name: amlodipi ne Send Method: E-Prescr ibed Sub s Allowed: subs OK Medic ationGen ericName : amlodipi ne Not Available Not Available Not Available cephalexi n 500 mg capsule TAKE 1 CAPSULE BY MOUTH EVERY 6 HOURS FOR 7 DAYS 06/30 completed Not Available Not Available Not Available furosemid e 20 mg tablet active Medicati on ID: [id number] B rand Name: furosemi de Send Method: [...] Updated DateTime 06/30/2024 165.1 cm 29.5 kg/m2 58685.85 g Harrison Garcia [place] - [facility] 06/30/2024 09:57:49 Social History None recorded. Functional Status None recorded. Mental Status None recorded. Family History Nothing Reported. Medical History Condition Response Heart Problems Y Asthma Y Past Encounters Encounter ID Performer Location Encounter Start Date Encounter Closed Date Diagnosis/Indication Diagnosis SNOMED-CT Code Diagnosis ICD10 Code [id number] DOUGLAS NARANJO MD [facility] [address] [address] 06/30/2024 09:41:04 06/30/2024 10:32:04 Chronic rhinitis 88893792 J31.0 Feeling of lump in throat 497847910 R09.89 Posterior rhinorrhea 758 60352 R09.82 Ptosis of left upper eyelid 5944220189 38202 H02.402 Health Concerns Section Related Observation LastModified by Organization Detai ls LastModified Time None Recorded Concern Status LastModified by Organization Details LastModified Time None Recorded Payers Encounter Date Sequence Insurance Name Policy Number Policy Wallace Covered Member ID Wallace Member ID Guarantor Name 06/30/[address] [place] [address] [id number] 1 Henrydonald Oswaldra [id number] Augustus Reeder Notes Date Note Type Note Provider Name and Address Organization Details Recorded Time 4 text/htm l Last seen in 2021. Has chronic clear nasal d/c and PND. Frequently clearing his throat Using decongestant sprays intermittentlyPreviously given AtroventHx of cricopharyngeal spasm DOUGLAS OLVERA MD [address] [place] [address], [address], [place] - [facility] 06/30/2024 10:31:33
[2024-08-28 10:25] VITALS: BP 190/75; PULSE 54; RESP 14; TEMP 36.4; O2SAT 95
--- NOTE | 2024-08-28 10:26 | HO.ANESPROP2 ---
[facility] Active Problems Active Problems: All Active Problems Elevated LFTs (Acute) Pre-op evaluation (Acute) Confusion (Acute) Shingles (Acute) Nausea (Acute) Headache (Acute) COVID-19 virus infection (Acute) Pterygium (Acute) Iron deficiency anemia (Acute) Swelling of lower extremity (Acute) Incomplete emptying of bladder due to benign prostatic hyperplasia (Acute) Weak urinary stream (Acute) Urinary retention (Acute) PAF (paroxysmal atrial fibrillation) (Acute) Type 2 diabetes mellitus with hyperglycemia (Acute) Moderate major depression (Acute) Pneumonia (Acute) PVD (peripheral vascular disease) (Acute) Rosacea (Acute) Hypothyroid (Acute) Cough (Acute) Pleural effusion (Acute) Restrictive lung disease (Acute) Somnolence, daytime (Acute) LARISSA (obstructive sleep apnea) (Acute) Dyspnea on exertion (Acute) Drooling (Acute) Chronic heart failure with preserved ejection fraction (HFpEF) (Acute) SOB (shortness of breath) (Acute) Ascending aorta dilatation (Acute) COVID-19 (Acute) Facial dermatitis (Acute) Somatic dysfunction of right sacroiliac joint (Acute) Rash (Acute) Dysphagia (Acute) SOB (shortness of breath) on exertion (Acute) Cognitive impairment (Acute) Essential hypertension (Acute) Annual physical exam (Acute) Anxiety and depression (Acute) Hypercholesterolemia (Acute) Past Medical History Medical History Shingles CHF (congestive heart failure) Preop exam for internal medicine Bilateral pleural effusion Pneumonia Physical deconditioning CKD (chronic kidney disease) stage 3, GFR 30-59 ml/min (HFpEF) heart failure with preserved ejection fraction Obesity (BMI 30-39.9) LARISSA (obstructive sleep apnea) PAF (paroxysmal atrial fibrillation) Type 2 diabetes mellitus with unspecified complications Peptic ulcer disease Non Hodgkin's lymphoma Anxiety and depression Hypercholesterolemia Vitamin D deficiency Obesity (BMI 30-39.9) Type 2 diabetes mellitus with hyperglycemia Thrombocytopenia Family History Family History Father Lung cancer Mother Breast cancer Sister Breast cancer Brother Substance use disorder Sister No problems noted. Son No problems noted. Daughter No problems noted. Family history of problems with anesthesia: No Surgical History Surgical History Hx of cataract extraction History of esophagogastroduodenoscopy (EGD) H/O colonoscopy H/O lymph node biopsy History of shoulder surgery History of Problems with Anesthesia: No Social History Social History Household Members: Spouse and Children Housing: House Are you a primary laboratory animal caretaker to a significant other at home: No Do you presently have visiting nurse or other home services: No Alcohol intake: never Patient Tobacco Use Status: Never used Tobacco e-Cigarette/Vaping Use: Never Used Second Hand Smoke Exposure: No Use of substances other than those prescribed or required for medical reasons: No Are you DNR?: No Advance Directives: Yes Advance Directives Information Provided: No Advance Directives on File: Yes Advance Directives Date on File: 12/19/21 Recently lost weight without trying: No Eating poorly because of decreased appetite: No Nutrition Risks: No Nutritional Risk service: No Current occupational status: retired Cognitive needs: Yes (Walker, cane) Hearing needs: No Vision needs: Yes (Glasses) Meds Allergies Allergy/AdvReac Type Severity Reaction Status Date / Time amlodipine AdvReac Intermediate leg Verified 08/28/24 10:25 swelling gabapentin AdvReac Intermediate lethargy Verified 08/28/24 10:25 lisinopril AdvReac Intermediate Cough Verified 08/28/24 10:25 metformin AdvReac Intermediate lethargy Verified 08/28/24 10:25 Active Medications: Current Medications Povidone Iodine (Povidone Iodine 5 % Ophth Soln 30 Ml Bottle) 1 appl EYE-BOTH PREOP PRN PRN Reason: Pre-Op Surgical Implant Prophy Home Medications ?Medication ?Instructions ?Recorded ?Confirmed ?Last Taken ?Type cholecalciferol (vitamin D3) 25 25 mcg PO DAILY 12/06/21 08/23/24 03/18/23 History mcg (1,000 unit) tablet (Vitamin D3) multivitamin 1 tab PO DAILY 03/10/23 08/23/24 05/13/23 History ascorbic acid (vitamin C) 250 mg 250 mg PO DAILY 05/25/23 08/23/24 Unknown History tablet acetaminophen 325 mg capsule 650 mg PO Q4H PRN Pain 03/31/24 08/23/24 Unknown History (Tylenol) Exam Height,Weight and Vital Signs: Height 5 ft 5 in Weight 81.647 kg Airway Mallampati Class: III TM Dist: >3cm Neck ROM: Full Denture: Upper Partial: Lower Loose/Missing/Broken Teeth: Yes Heart: RRR Lungs: CTA Assessment and Plan Assessment Anesthesia Assessment: Anesthesia Plan Discussed and Chart Reviewed Final Anesthetic Review Family History of Problems with Anesthesia: No History of Problems with Anesthesia: No NPO: Yes ASA Class: III Final Preanesthetic Review: Meds/Allgs Chart Reviewed, Consent Obtained/Reviewed and Anes Risks/Benef Reviewed Patient Risk: Intermediate Procedure Risk: Low Anesthetic Plan Anesthetic Plan: MAC: Disposition: Standard PACU
[2024-08-28] MEDS: Lactated Ringers 500 ML 50 ML IV (10:52)
[2024-08-28 10:58] LABS: Glucose, Whole Blood 140 mg/dL (60-115)
[2024-08-28 13:17] VITALS: BP 153/63; PULSE 53; RESP 18; TEMP 36.1; O2SAT 97
[2024-08-28 13:32] VITALS: BP 146/61; PULSE 51; RESP 18; TEMP 36.1; O2SAT 98
--- NOTE | 2024-08-28 23:53 | OP_ITS ---
DATE OF SERVICE: 08/28/2024 SURGEON: Zaid Bernstein MD PREOPERATIVE DIAGNOSIS: Ptosis, left upper lid. POSTOPERATIVE DIAGNOSIS: Ptosis, left upper lid. PROCEDURE PERFORMED: Levator resection. ESTIMATED BLOOD LOSS: COMPLICATIONS: ANESTHESIA: MAC with local. ASSISTANTS: SPECIMENS: DESCRIPTION OF PROCEDURE: After obtaining informed consent, the patient was brought to the operating room suite and placed in the supine position. The eyes were prepped and draped in the usual sterile fashion. Attention was directed to the left superior lid crease which was marked the width of the cornea. A 15-blade was then utilized to create true incision, which was extended inferiorly with Jorge scissors with blunt and sharp dissection until the tarsal plate was visualized. Double-armed sutures were then utilized through left tarsal plate at each margin of the incision site. Lid was inverted. No signs of the suture passer through the lid was noted. The suture was then placed superiorly into the levator muscle and suturing into place with attention directed to match the opposing lid. Patient tolerated the procedure well and will be seen in followup. MD DEMARIO Feldman/MODL / [id number] MTDD
== END 2024-08-28 13:59 | disposition home or self-care (01) ==
PROVIDERS: PCP Internal Medicine; Visit Provider Ophthalmology
PROC: (CPT 67904; principal; 2024-08-28 11:30)
DX: H02.412 Mechanical ptosis of left eyelid (principal); I13.0 Hypertensive heart and chronic kidney disease with heart failure and stage 1 through stage 4 chronic kidney disease, or unspecified chronic kidney disease; I50.32 Chronic diastolic (congestive) heart failure; N18.30 Chronic kidney disease, stage 3 unspecified; E11.22 Type 2 diabetes mellitus with diabetic chronic kidney disease; E11.65 Type 2 diabetes mellitus with hyperglycemia; E78.00 Pure hypercholesterolemia, unspecified; I48.91 Unspecified atrial fibrillation; E03.9 Hypothyroidism, unspecified; G47.33 Obstructive sleep apnea (adult) (pediatric); Z79.01 Long term (current) use of anticoagulants; Z79.84 Long term (current) use of oral hypoglycemic drugs; Z79.899 Other long term (current) drug therapy; Z99.89 Dependence on other enabling machines and devices; Z88.8 Allergy status to other drugs, medicaments and biological substances; Z98.890 Other specified postprocedural states
CPT/HCPCS: 67904; 82947; J2003; J3010; J3301

== ENCOUNTER 2024-08-31 09:57 | Outpatient (REF) | payer MEDICARE, SELFPAY ==
--- NOTE | ~2024-08-31 | US_ITS ---
EXAMINATION: US ABDOMEN HISTORY: R79.89 - elevated LFTs TECHNIQUE: Real-time grayscale ultrasound imaging of the abdomen was performed and images were reviewed. COMPARISON: There are no prior studies for comparison. FINDINGS: Liver: The liver is normal in size, but demonstrates increased echotexture, consistent with steatosis. No focal mass or intrahepatic biliary ductal dilatation is identified. Gallbladder and biliary tree: There are tiny gallbladder polyps. The gallbladder is otherwise unremarkable, without evidence of calculi, wall thickening, or pericholecystic fluid. There is no sonographic Alcantar sign. The common bile duct is normal in caliber measuring 3 mm. Kidneys: The right kidney measures 10.6 cm in length. The left kidney measures 9.5 cm in length. The kidneys are unremarkable, without evidence of masses, hydronephrosis, or calculi. Pancreas: The pancreatic head, neck, and body are unremarkable. The pancreatic tail is obscured by bowel gas. Spleen: The spleen is normal in size and contour, measuring 12.3 cm in length. Abdominal aorta and inferior vena cava: The visualized portions of the abdominal aorta and inferior vena cava are normal in caliber. There is no free fluid in the abdomen. US/US abdomen complete IMPRESSION: Hepatic steatosis. Tiny gallbladder polyps. Otherwise unremarkable abdominal ultrasound. Electronically signed by: Simon Cantu MD 08/31/2024 12:48 PM [facility]
[2024-08-31 14:05] LABS: Alanine Aminotransferase 34 U/L (0-40); Albumin Level 3.9 g/dL (3.5-5.0); Alkaline Phosphatase 123 U/L (39-117); Aspartate Amino Transferase 64 U/L (5-37); Bilirubin Direct 0.4 mg/dL (0.0-0.5); Bilirubin Total 1.1 mg/dL (0.0-1.0); Total Protein 7.6 g/dL (6.5-8.0)
== END 2024-08-31 09:58 | disposition home or self-care (01) ==
LOC: HO.HMGCX 09:57
PROVIDERS: PCP Internal Medicine
DX: R79.89 Other specified abnormal findings of blood chemistry (principal)
CPT/HCPCS: 36415; 76700; 80076

== ENCOUNTER → 2024-08-31 10:04 | Outpatient (BNV) | payer MEDICARE, SELFPAY | PROVIDERS: PCP Internal Medicine; Visit Provider Radiology Diagnostic Radiology | DX: K76.0 Fatty (change of) liver, not elsewhere classified (principal); K82.4 Cholesterolosis of gallbladder | CPT/HCPCS: 76700 ==

== ENCOUNTER → 2024-09-13 09:37 | Outpatient (BNVA) | payer MEDICARE, SELFPAY | PROVIDERS: PCP Internal Medicine; Visit Provider Internal Medicine | DX: G47.33 Obstructive sleep apnea (adult) (pediatric) (principal); J98.4 Other disorders of lung; J90 Pleural effusion, not elsewhere classified; J84.9 Interstitial pulmonary disease, unspecified | CPT/HCPCS: 99212 ==

== ENCOUNTER 2024-10-31 10:24 | Outpatient (AMB) | payer MEDICARE, SELFPAY ==
--- NOTE | 2024-10-31 10:28 | MHC.OFFVIS ---
Vital Signs 10/31/24 10:30 Height 5 ft 5 in Weight 186 lb 8.177 oz BMI 31.0 BP 140/70 H Blood Pressure Location Lt brachial Position Sitting Pulse 59 Pulse Source Pulse Oximeter Intake Visit Reasons: 4m follow up/CT scan Manager [employer] Required: No Accompanied by: Spouse Allergies amlodipine Adverse Reaction (Intermediate, Verified 09/13/24 11:51) leg swelling gabapentin Adverse Reaction (Intermediate, Verified 09/13/24 11:51) lethargy lisinopril Adverse Reaction (Intermediate, Verified 09/13/24 11:51) Cough metformin Adverse Reaction (Intermediate, Verified 09/13/24 11:51) lethargy Medication List - Last Reconciled 10/31/24 by Brain Su MD acetaminophen (Tylenol) 650 mg PO Q4H PRN albuterol sulfate 90 mcg/actuation 2 puffs inhalation Q4-6H PRN 60 days apixaban (Eliquis) 5 mg PO BID ascorbic acid (vitamin C) 250 mg PO DAILY atorvastatin 80 mg PO DAILY 90 days bethanechol chloride 50 mg PO BID 30 days cholecalciferol (vitamin D3) (Vitamin D3) 25 mcg PO DAILY escitalopram oxalate 10 mg PO DAILY ferrous sulfate 325 mg PO DAILY furosemide 40 mg PO DAILY glipizide ER 5 mg PO DAILY levothyroxine 100 mcg PO DAILY@1100 90 days metoprolol succinate ER 100 mg PO DAILY 90 days multivitamin 1 tab PO DAILY nystatin 1 appl See Protocol topical TID 7 days pregabalin 50 mg PO BID tamsulosin 0.4 mg PO BEDTIME 90 days walker (Ultra-Light Rollator mis) As directed HPI Comments Details: Augustus returns for follow-up all regarding atrial fibrillation and congestive heart failure. To recall, in 2022, he was in congestive heart failure suspected to be from atrial fibrillation. He was put on amiodarone and then we planned cardioversion but he went back to normal by himself. He has been maintaining sinus rhythm. Otherwise, the main concern is that he does have complaints of shortness of breath. Per patient and , multiple episodes of pneumonia over several years. He has contracted COVID-19 three times, with the most recent about a month ago, which appears to have affected his lung function further. This has been accompanied by exertional dyspnea and difficulty in activities such as bending down and consuming liquids. Despite an improvement in his cough, occasional symptoms persist. He has not smoked, although exposure from his daughter smoking in the basement is noted. [facility] Medical History (Updated 10/31/24 @ 11:34 by Brain Su MD) Interstitial lung disease Shingles CHF (congestive heart failure) Preop exam for internal medicine Bilateral pleural effusion Pneumonia Physical deconditioning CKD (chronic kidney disease) stage 3, GFR 30-59 ml/min (HFpEF) heart failure with preserved ejection fraction Obesity (BMI 30-39.9) LARISSA (obstructive sleep apnea) PAF (paroxysmal atrial fibrillation) Type 2 diabetes mellitus with unspecified complications Peptic ulcer disease Non Hodgkin's lymphoma Anxiety and depression Hypercholesterolemia Vitamin D deficiency Obesity (BMI 30-39.9) Type 2 diabetes mellitus with hyperglycemia Thrombocytopenia Surgical History Hx of cataract extraction History of esophagogastroduodenoscopy (EGD) H/O colonoscopy H/O lymph node biopsy History of shoulder surgery Family History Father Lung cancer Mother Breast cancer Sister Breast cancer Brother Substance use disorder Sister No problems noted. Son No problems noted. Daughter No problems noted. Social History Household Members: Spouse and Children Housing: House Are you a primary nurse care manager to a significant other at home: No Do you presently have visiting nurse or other home services: No Alcohol intake: never Patient Tobacco Use Status: Never used Tobacco e-Cigarette/Vaping Use: Never Used Second Hand Smoke Exposure: No Advance Directives Date on File: 12/19/21 service: No Current occupational status: retired Cognitive needs: Yes (Walker, cane) Hearing needs: No Vision needs: Yes (Glasses) Review of Systems Const Denies chills, Denies fatigue, Denies fever(s), Denies frequent falls, Denies weakness, Denies weight gain and Denies weight loss ENT Denies dizziness Card Denies chest pain, Denies leg edema, Denies lightheadedness, Denies palpitations, Denies dyspnea and Denies dyspnea on exertion Resp Denies cough, Denies dyspnea and Denies dyspnea on exertion GI Denies hematochezia Musc Denies abnormal gait, Denies muscle weakness, Denies numbness, Denies radiating pain into limb and Denies tingling Neuro Denies abnormal gait, Denies dizziness, Denies frequent falls, Denies numbness, Denies tingling and Denies weakness Endo Denies fatigue and Denies palpitations Physical Exam Vital Signs: Last Vital Signs Pulse 59 10/31/24 10:30 BP 140/70 H 10/31/24 10:30 BMI result Body Mass Index 31.0 Const General: comfortable and no acute distress Orientation/consciousness: patient oriented x3 HEENT Other: Unremarkable Head: Yes normal to inspection Neck Neck: Yes normal visual inspection Chest Chest palpation & inspection: normal inspection of the chest Resp Auscultation: clear to auscultation bilaterally Cardio Palpation: normal PMI Heart sounds: S1 normal heart sound present, S2 normal heart sound present, no gallops, no murmurs and no rubs GI Palpation (GI): Soft to palpation Back/Spine/Pelvis Other: unremarkable Skin General skin exam: no rashes or lesions noted Neuro General: patient oriented x3 Extrem General: Yes normal to inspection Psych Mental Status: mental status grossly normal Assessment & Plan Assessment & Plan (1) PAF (paroxysmal atrial fibrillation): Comment: Cardioversion 12/04/2021 Code(s): I48.0 - Paroxysmal atrial fibrillation Category: Medical Plan: S/p cardioversion in 2021; recurrent atrial fibrillation but resolved with amiodarone. However, because of interstitial lung disease concerns, amiodarone has been stopped. Continue with anticoagulation. Continue metoprolol. (2) Chronic heart failure with preserved ejection fraction (HFpEF): Code(s): I50.32 - Chronic diastolic (congestive) heart failure Category: Medical Plan: He is clinically euvolemic. No recent issues. (3) Atherosclerotic cardiovascular disease: Code(s): I25.10 - Atherosclerotic heart disease of robinson coronary artery without angina pectoris Category: Medical Plan: Chest CT scan reports multivessel coronary artery calcification. Myocardial perfusion imaging study from 2021 with normal perfusion. Clinically, no angina. Continue statins. (4) Essential hypertension: Code(s): I10 - Essential (primary) hypertension Category: Medical Plan: Stable. No changes. (5) LARISSA (obstructive sleep apnea): Code(s): G47.33 - Obstructive sleep apnea (adult) (pediatric) Category: Medical Plan: Unable to use. (6) Interstitial lung disease: Code(s): J84.9 - Interstitial pulmonary disease, unspecified Category: Medical Plan: In the recent CT chest, evidence of interstitial lung disease. Differential diagnosis includes collagen vascular disease, drug reaction, cryptogenic organizing pneumonia, sarcoidosis as mentioned report. Progression compared to 2022. Superimposed CHF. He is already being seen at pulmonary clinic. From the cardiac standpoint, amiodarone has been stopped. There is a risk of recurrent atrial fibrillation. Plan We reviewed the risks and management of interstitial lung disease, emphasizing symptom monitoring and the importance of maintaining optimal oxygen levels. We discussed the stable nature of his cardiac condition and the unnecessary adjustment in diuretic therapy considering current renal stability. The patient voiced understanding of the necessity to monitor and potentially manage oxygen levels with supplementation if required. The risks and benefits of current interventions like his CPAP usage were reiterated. Recommendations included reducing exposure to secondhand smoke and recognizing worsening symptoms that may prompt further evaluation or intervention. Patient was informed and verbally consented to the use of an ambient scribe for clinic note documentation during this visit. Patient Instructions: - Monitor oxygen saturation levels regularly. - Continue using your CPAP machine as needed. - Avoid exposure to secondhand smoke. - Watch for symptoms such as increased shortness of breath or changes in your cough. - Contact the clinic if new symptoms develop or current symptoms worsen. Coding Level of Care Code Est Pt Level 4 (59341) Complex EM visit Add On G2211 Diagnoses PAF (paroxysmal atrial fibrillation) I48.0 Chronic heart failure with preserved ejection fraction (HFpEF) I50.32 Atherosclerotic cardiovascular disease I25.10 Essential hypertension I10 LARISSA (obstructive sleep apnea) G47.33 Interstitial lung disease J84.9
[2024-10-31 10:30] VITALS: BP 140/70; PULSE 59; BMI 31.0
--- OUTSIDE RECORDS SUMMARY | 2024-10-31 12:28 | XMS_ITS ---
Author Organization [facility] Address [address] [place] [address] Care Team Providers Care Corporate Director Name Role Phone FranChanasebastien Primary Care Provider Unavailabl e Black, Zulma Unavailable [phone] Allergies Allergen (clinical drug ingredient) Drug/Non Drug Allergy documented on EMR Reaction Allergy Type Onset Date Status oxymetazoline Nasal Unknown Drug Allergy Act millie REASON FOR VISIT At Risk Footcare, Foot pain, Skin problem(s), Painful Toe(s) Medications Medication SIG (Take, Route, Frequency, Duration) Notes Start Date End Date Status Escitalopram Oxalate 10 MG 1 tablet Orally Once a day Active Furosemide 40 MG 1 tablet Orally Once a day Active Tamsulosin HCl 0.4 MG 1 capsule Orally Once a day Active Bethanechol Chloride 50 MG 1 tablet 1 hour before or 2 hours after meals Orally Three times a day Active Multi Vitamin - 1 tablet Orally Once a day Active Aspirin 81 MG 1 tablet Orally Once a day for 30 day(s) Not-Taking Ammonium Lactate 12 % 1 application Externally to feet except for between the toes Twice a day for 30 days Not-Taking Losartan Potassium 50 MG 1 tablet Orally Once a day for 30 day(s) Not-Taking Pioglitazone HCl 15 MG 1 tablet Orally Once a day for 30 day(s) Not-Taking Ipratropium Brusly 0.03 % 2 sprays in each nostril Nasally Twice a day Active Amoxicillin 100 mg for 1 month Not-Taking glipiZIDE 5 MG 1 tablet 30 minutes before breakfast Orally Once a day for 30 day(s) 1 AM, 1 PM Active Metoprolol Succinate 100 MG 1 capsule Orally Once a day for 30 day(s) Active eliquis 5 mg 02/05/2022 Active Atorvastatin Calcium 40 MG as directed Orally Active Pregabalin 50 MG 1 capsule Orally Once a day Active Levothroid Active Social History Tobacco Use: Social History Observation Description Date Details (start date - stop date) Never Smoker NA - NA Tobacco Use/Smoking Question Answer Notes Are you a: nonsmoker Additional Findings: Tobacco Non-User Current no n-smoker Alcohol Screen Question Answer Notes Did you have a drink containing alcohol in the p ast year? No Points 0 Interpretation Negative Tobacco use other than smoking: Question Answer Notes Are you an other tobacco user? No Problems Problem Type SNOMED Code ICD Code Onset Dates Problem Status W/U Status Risk Notes Problem Essential hypertension (97772908) Essential hypertension (I10) Active confirmed Vital Signs Height 5 ft 5 in in 08/08/2024 Weight 185 lbs 08/08/2024 BMI 30.78 kg/m2 08/08/2024 Blood pressure systolic 175 mm Hg 08/08/20 24 Blood pressure diastolic 66 mm Hg 024 Procedures Procedure Date Ordered Date Performed Result Body Sit e 91593-OCFUXLU NAIL, 6 OR MORE 08/08/2024 N/A 39447-Gzebiltk Plate 08/08/2024 N/A 37109-QVXR SKIN LESIONS, 2 TO 4 08/08/2024 N/A Encounters Encounter Location Date Provider Diagnosis [facility] [place] [address] [place] [address] 08/08/2024 Zulma Black Neuralgia and neuritis, unspecified M79.2 ; Xerosis of skin L85.3 ; Type 2 diabetes mellitus with diabetic polyneuropathy E11.42 ; Tinea unguium B35.1 ; Neuropathy G62.9 ; Tingling in extremities R20.2 and Ingrown nail L60.0 Assessments Encounter Date Diagnosis (ICD Code) Assessment Notes Treatment Notes Treatment Clinical Notes Section Notes 08/08/2024 Neuralgia and neuritis, unspecified (ICD-10 - M79.2) 08/08/2024 Xerosis of skin (ICD-10 - L85.3) 08/08/2024 Type 2 diabetes mellitus with diabetic polyneuropathy (ICD-10 - E11.42) 08/08/2024 Tinea unguium (ICD-10 - B35.1) 08/08/2024 Neuropathy (ICD-10 - G62.9) 08/08/2024 Tingling in extremities (ICD-10 - R20.2) 08/08/2024 Ingrown nail (ICD-10 - L60.0) Plan Of Treatment Pending Test Test Name Order Date 92700-XVENKBD NAIL, 6 OR MORE 08/08/2024 97461-Dqmpiqtx Plate 08/08/2024 35483-KGDI SKIN LESIONS, 2 TO 4 08/08/20 24 Next Appt Details Follow Up: 2 Weeks, Reason: Provider Name:Zulma Toro , 11/02/2024 11:30:00 AM, [address] [place], [address], Procedure Notes * Category Sub-Category Detail Notes Nail Avulsion Procedure A fine sterile e levator was placed between the eponychium, nail fold, and nail plate to separate the structures. A sterile nail splitter, and/or sterile 316 blade, was then used to longitudinally section the nail along its entire length through the eponychium to the area under the nail fold. The offending portion of nail was from the nail bed with a rolling action and then removed with a hemostat. No underlying bone was identified. There was minimal bleeding as hemostasis was achieved through the temporary use of either a digital tourniquet or the aforementioned local with epinephrine. A bacitracin sterile dressing was applied. Local wound aftercare instructions were discussed and dispensed. The patient was informed of both conservative and future surgical procedures to prevent recurrence. Tylenol or Motrin was recommended for pain or discomfort (69302), DIABETES: Matricectomy deferred at this time due to diabetes risk Anesthesia was deferred - NEURO RAEANN: patient has medically documented neuropathic condition affecting sensation, Location Bilateral nail borde r,TA, Debride Nail 6-10 Nail debridement Due to the cl inical pathology outlined in the exam findings, performance of this nail treatment is medically necessary as its management by an unskilled/untrained nonprofessional would put this patients foot and overall health at risk. Therefore, debridement to affected nail(s), as described in exam ( T1 T2 T3 T4 T9 T7 ), was performed exclusively by the physician of record to reduce/remove overall nail length, girth, thickness, subungual debris, and necrotic tissue, by manual and/or electrical means through the use of a nail nipper and/or dremel-type burr grinder, to a more viable healthy nail plate or bed tissue 6-10 nails in total. Silver nitrate was used for any petechial bleeding as necessary. Definitive antifungal treatment options, both pharmaceutical and surgical, have been reviewed and discussed with the patient. The patient solely prefers the use of intermittent/as needed professional debridement services for their nail condition and understands the need for additional periodic treatments to maintain effectiveness in symptomatic relief - 99350 Keratoma Treatment Parring or Cutting o f Benign Hyperkeratotic Lesion(s) (-56) 2-4 Lesions - Due to the at risk nature of the patients medical condition as documented in the exam findings, performance of this keratoderma treatment is medically necessary as its management by an unskilled/untrained nonprofessional would put this patients foot and overall health at risk. Therefore, the benign hyperkeratotic lesions, ( 2 ) in total, locations as stated and described in the exam ( B/L Heel(s)), were pared, and/or cut utilizing a sterile 15 blade, tissue nippers, and/or power dremel instrumentation by the physician of record - 11069 Progress Notes * ELISEO Henrydonald FDOB:[birth year] (78 yo M)Acc No.[id number]:08/08/2024 Progress Note Patient:?Augustus GOMES Provider:?Zulma Toro DPM :1945???Age:78 Y???Sex:Male Stiven e:08/08/2024 Address:[address] [place], [place] [id number] Pcp:Carmen Peters Subjective: * Chief Complaints: * ???At Risk FootcareFoot pain Skin problem(s)Painful Toe(s) * HPI: ???At Risk footcare:?Pt States Last PCP Visit:?Date?06/06/2024 ???Foot Pain:?Nature:?tingling.?Location:?, B/L , L > R.?Duration:?several months.?Onset:?unknown.?Course:?, improved.?Aggravated:?any pressure.?Treatments:?rest/alter normal daily activity ,?.?Skin problems:?Nature:?dryness , scaling.?Location:?B/L .?Duration:?, several months.?Course:?, improved.?Toe pain:?Nature:?aching, discoloration.?Location:?Great toe, Left foot.? * ROS:?General/Constitutional:?Nausea?denies.?Vomiting?denies.?Hunger Thirst?denies.?Loss appetite?denies.?Chills?denies.?Fatigue?denies.?Fever?denies.?Night Sweats?denies.?Unexplained weight loss?denies.?Unexplained weight gain?denies.?HEENTM:?Dentures?denies.?Dizziness?denies.?Glasses/contacts?admits.?Retinopathy?den ies.?Blurred/double vision?denies.?TMJ?denies.?Discharge/drainage?denies.?Implants?denies.?Sore throat?denies.?Dental implants?denies.?Hard of hearing ?denies.?Difficulty chewing/swallowing/speaking?denies.?Nose bleeds?denies.?Sore mouth?denies.?Respiratory:?On O xygen?denies.?Pneumonia/pleurisy?denies.?Bronchitis?denies.?Emphysema?denies.?Co ughing?denies.?Cough blood?denies.?Shortness of breath?denies.?Wheezing?denies.?Cardiovascular:?Pacemaker?denies.?MVP?denies.?WPW?denies.?CHF?denies.?Heart attack?denies.?Septal defect?denies.?Rapid beat?denies.?Chest pain ?denies.?Atrial Fib.?denies.?Murmur/Palpitations?denies.?Gastrointestinal:?Hemorrhoids?denies.?Stomach/Abdominal pain?denies.?Dark blood stool?denies.?Irritable bowel ?denies.?Constipation?denies.?Diarrhea?denies.?Hematology:?Swelling?denies.?Clots?denies.?Varicose Veins?denies.?Bruising?denies.?Bleeding problem?denies.?Genitourinary:?Blood urine?denies.?Frequent/Painfu/urination/bladder control?denies.?Kidney stones?denies.?Infection (UTI)?denies.?Nephropathy?denies.?sex trans dis (STD)?denies.?Prostate?denies.?Musculoskeletal:?Hammertoes?denies.?Bunions?denies.?Back Pain?denies.?Muscle Cramps/ Resting?denies.?Muscle cramps / walking?denies.?Generalized aches and pains?denies.?Weakness?denies.?Integ.:?Contreras?denies.?Scars?denies.?Corns/calluses?, admits.?Ingrown nails?denies.?Open Sores?denies.?Rashes?denies.?Neurologic:?Difficulty sleeping?denies.?Brain disorder?denies.?Numbness?denies.?Balance t rouble?denies.?Confusion?denies.?Fainting/blackouts?denies.?Tingling?admits.?Yasmani mors?denies.? * Medical History:? 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 Siblings: alive, diagnosed with Other malignant neoplasm of unspecified site.?Children: diagnosed with Family history of arthritis.? * Social History:?Tobacco Use:?Tobacco Use/Smoking?Are you a:?nonsmoker ?Additional Findings: Tobacco Non-User?Current non-smoker ?Tobacco use other than smoking?Are you an other tobacco user??No ???Drugs/Alcohol:?Drugs?Have you used drugs other than those for medical reasons in the past 12 months??No ?Alcohol Screen?Did you have a drink containing alcohol in the past year??No ?Points?0 ?Interpretation?Negative ???Miscellaneous:?Caffeine: yes, frequency:, 1-2 cups per day. ?Children: yes. ?Exercise: yes, fishing. ?Marital status: . 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 * Medications:?TakingIpratropi um Brusly 0.03 % Solution 2 sprays in each nostril Nasally Twice a day Multi Vitamin - Tablet 1 tablet Orally Once a day Bethanechol Chloride 50 MG Tablet 1 tablet 1 hour before or 2 hours after meals Orally Three times a day Tamsulosin HCl 0.4 MG Capsule 1 capsule Orally Once a day Furosemide 40 MG Tablet 1 tablet Orally Once a day Escitalopram Oxalate 10 MG Tablet 1 tablet Orally Once a day Levothroid Pregabalin 50 MG Capsule 1 capsule Orally Once a day Metoprolol Succinate 100 MG Capsule ER 24 Hour Sprinkle 1 capsule Orally Once a day glipiZIDE 5 MG Tablet 1 tablet 30 minutes before breakfast Orally Once a day , Notes to Pharmacist: 1 AM, 1 PMAtorvastatin Calcium 40 MG Tablet as directed Orally eliquis 5 mg Tablet Taking Ipratropium Brusly 0.03 % Solution 2 sprays in each nostril Nasally Twice a day Taking Multi Vitamin - Tablet 1 tablet Orally Once a day Taking Bethanechol Chloride 50 MG Tablet 1 tablet 1 hour before or 2 hours after meals Orally Three times a day Taking Tamsulosin HCl 0.4 MG Capsule 1 capsule Orally Once a day Taking Furosemide 40 MG Tablet 1 tablet Orally Once a day Taking Escitalopram Oxalate 10 MG Tablet 1 tablet Orally Once a day Taking Levothroid Taking Pregabalin 50 MG Capsule 1 capsule Orally Once a day Taking Metoprolol Succinate 100 MG Capsule ER 24 Hour Sprinkle 1 capsule Orally Once a day Taking glipiZIDE 5 MG Tablet 1 tablet 30 minutes before breakfast Orally Once a day , Notes to Pharmacist: 1 AM, 1 PMTaking Atorvastatin Calcium 40 MG Tablet as directed Orally Taking eliquis 5 mg Tablet Not-Taking/PRNAmoxicillin , Notes to Pharmacist: 100 mg for 1 monthPioglitazone HCl 15 MG Tablet 1 tablet Orally Once a day Losartan Potassium 50 MG Tablet 1 tablet Orally Once a day Ammonium Lactate 12 % Cream 1 application Externally to feet except for between the toes Twice a day Aspirin 81 MG Tablet Chewable 1 tablet Orally Once a day Medication List reviewed and reconciled with the patientNot-Taking/PRN Amoxicillin , Notes to Pharmacist: 100 mg for 1 monthNot-Taking/PRN Pioglitazone HCl 15 MG Tablet 1 tablet Orally Once a day Not-Taking/PRN Losartan Potassium 50 MG Tablet 1 tablet Orally Once a day Not-Taking/PRN Ammonium Lactate 12 % Cream 1 application Externally to feet except for between the toes Twice a day Not- Taking/PRN Aspirin 81 MG Tablet Chewable 1 tablet Orally Once a day Medication List reviewed and reconciled with the patient * Allergies:?Nasalyes[Allergie s Verified] Objective: * Vitals:?Ht: 5 ft 5 in, Wt: 1 85, BMI: 30.78, Shoe size: 9, BP: 175/66 mm Hg, BS: not taken, Wt-k.91 kg. * Examination: ???Ophthalmology Referral: ?DIABETES EYE EXAM?Procedure Performed:?Yes ?Date of Exam Performed?08/09/2023 ?Findings of Diabetic Eye Exam:?no retinopathy?CQM Exceptions:: ?Hemoglobin A1c not performed?Reason:?No reason specified?General Examination: ?GENERAL APPEARANCE:?Reveals a pleasant, alert, well nourished, well- developed, well hydrated individual, who demonstrates proper attention to hygiene/body habitus, and is in no acute distress, Pt serves as own historian for office visit today.?ORIENTED:?person, place, and time.?FOOT EXAM:?Lower Extremity Neurological Exam performed:?Yes ?Visual exam of foot performed:?Yes ?Date?08/08/2024 ?Sensory testing performed:?sensations diminished ?Sensory and motor testing performed:?sensations diminished ?Pedal pulse taking performed:?2+?Neurological: ?SENSORY:? Neurological exam demonstrates, reduced light touch sensation, reduced sharp/dull pin prick discrimination , B/L,reduced vibration sensation, 5.07 monofilament test performed at plantar aspects of 5 varied sites per foot shows sensation, reduced , B/L, Pt relates, stinging, anesthesia, B/L?with itingling sensations at night time 30% less.?Nails: ?NAILS are:?Elongated, overgrown, dystrophic, lytic, greater than 3mm thick, discolored and friable with crumbly malodorous subungual debris, with dull to no pain on palpation due to neuropathy, ?T1 T2 T3 T4 T9 T7 ,.?Dermatologic: ?SKIN FINDINGS:?, Skin exam reveals keratotic lesion(s) located at ,B/L Heel(s) , , Skin shows sign(s) of, dryness, scaling, in a stocking fashion, no fissure(s) present, B/L, approximately 60 percent LESS.?Ingrown Nail: ?INSPECTION:?Reveals nail incurvation, dull pain on palpation due to neuropathy, groove hypertrophy, Bilateral nail borders, TA.?Vascular: ?DP PULSES (B):?2/4, B/L.?PT PULSES (B):?1/4, B/L.?CAPILLARY FILL TIME:?immediate, all digits, B/L.?TROPHIC CONDITION-TEXTURE/ELASTICITY/TURGOR/HAIR GROWTH (B):?normal, B/L.?TEMPERTURE GRADIENT (C):?normal, warm to cool, proximal to distal, B/L, B/L.?PIGMENTATION:?normal, B/L.? Assessment: * Assessment: 1.?Neuralgia and neuritis, u nspecified - M79.2 (Primary)???Specify :Response to treatment - Improvement???2.?Xerosis of skin - L85.3???Specify :Response to treatment - Improvement???3.?Type 2 diabetes mellitus with diabetic polyneuropathy - E11.42???4.?Tinea unguium - B35.1???5.?Neuropathy - G62.9???6.?Tingling in extremities - R20.2???7.?Ingrown nail - L60.0??? Plan: * Treatment: 2.?Tinea unguium?Procedure: 54306-EASUUSI NAIL, 6 OR MORE 3.?Ingrown nail?Procedure: 46942-Zdrlsoax Plate * Procedures:?Debride Nail 6-10:?Nail debridement?Due to the clinical pathology outlined in the exam findings, performance of this nail treatment is medically necessary as its management by an unskilled/untrained nonprofessional would put this patients foot and overall health at risk. Therefore, debridement to affected nail(s), as described in exam ( T1 T2 T3 T4 T9 T7 ), was performed exclusively by the physician of record to reduce/remove overall nail length, girth, thickness, subungual debris, and necrotic tissue, by manual and/or electrical means through the use of a nail nipper and/or dremel- type burr grinder, to a more viable healthy nail plate or bed tissue 6-10 nails in total. Silver nitrate was used for any petechial bleeding as necessary. Definitive antifungal treatment options, both pharmaceutical and surgical, have been reviewed and discussed with the patient. The patient solely prefers the use of intermittent/as needed professional debridement services for their nail condition and understands the need for additional periodic treatments to maintain effectiveness in symptomatic relief - 47946.?Keratoma Treatment:?Parring or Cutting of Benign Hyperkeratotic Lesion(s)?(-56) 2-4 Lesions - Due to the at risk nature of the patients medical condition as documented in the exam findings, performance of this keratoderma treatment is medically necessary as its management by an unskilled/untrained nonprofessional would put this patients foot and overall health at risk. Therefore, the benign hyperkeratotic lesions, ( 2 ) in total, locations as stated and described in the exam ( B/L Heel(s)), were pared, and/or cut utilizing a sterile 15 blade, tissue nippers, and/or power dremel instrumentation by the physician of record - 33635.?Nail Avulsion:?Location?Bilateral nail border,TA, .?Anesthesia?was deferred - NEUROPATHY: patient has medically documented neuropathic condition affecting sensation, .?Procedure?A fine sterile elevator was placed between the eponychium, nail fold, and nail plate to separate the structures. A sterile nail splitter, and/or sterile 316 blade, was then used to longitudinally section the nail along its entire length through the eponychium to the area under the nail fold. The offending portion of nail was from the nail bed with a rolling action and then removed with a hemostat. No underlying bone was identified. There was minimal bleeding as hemostasis was achieved through the temporary use of either a digital tourniquet or the aforementioned local with epinephrine. A bacitracin sterile dressing was applied. Local wound aftercare instructions were discussed and dispensed. The patient was informed of both conservative and future surgical procedures to prevent recurrence. Tylenol or Motrin was recommended for pain or discomfort (69556), DIABETES: Matricectomy deferred at this time due to diabetes risk.? * Procedure Codes:?29513 Avuls ion Plate, [place] [address] DEBRIDE NAIL, 6 OR MORE, Modifiers: XS 16705 TRIM SKIN LESIONS, 2 TO 4, Modifiers: XS * Preventive Medicine:? ??Counseling:?Discussion:?-13: Office or other outpatient visit for the evaluation and management of an established patient, which required a medically appropriate history and/or examination and LOW level of DECISION MAKING for: 1 STABLE ACUTE UNCOMPLICATED PROBLEM, 2 OR MORE MINOR PROBLEMS, OR 1 STABLE CHRONIC PROBLEM, THAT POSE(S) A LOW RISK FOR MORBIDITY/MORTALITY. The visit on the day of the encounter encompassed interpreting the data and educating the patient as to the nature of their condition, treatment options available according to their individual PMH, meds, allergies, and overall health/living conditions, as well as any potential risks or complications that may occur from a failure to adhere to, and participate in, the recommended course of therapy. The discussion included a complete verbal, and/or written explanation of the examination results, any x-rays taken, the proposed diagnosis, and outline of the treatment plan. A schedule for future care needs was also explained. The patient verbalized an understanding of the instructions at this time and agreed to be an active participant in their treatment. If the patient should think of any questions or concerns after the visit, I have encouraged the patient to call the office.?Neuritis/Neuropathy:?Discussed other tx options for the patients condition, given recent successful results to treatment, the patient wishes to continue with the present plan for their condition.?Xerosis:?Given recent successful results to treatment, The patient is to cont the rx cream as directed, Recommended to secure a painters sponge to a yard stick in order to properly and effectively reach feet for cream application.? ??Screening/Special Tests:?Fall Risk?Screening:?No falls in the past year * Follow Up:?2 Weeks * Images: * Sign off status: Completed true * Provider:?Zulma Toro DPM Date:?2023 Generated for Sarah Beth pollack/Loraine/Jesus on:?10/31/2024 12:28 PM EDT History and Physical Notes * HPI (History of Present Illness) Category Sub-Category Detail Notes Category Not es Toe pain Nature: aching, discoloration Location: Great toe, Left foot Skin problems Nature: dryness , scaling Location: B/L Duration: , several months Course: , improved At Risk footcare Pt States Last PCP Visit: Date: Foot Pain Nature: tingling Location: , B/L , L > R Duration: several months Onset: unknown Course: , improved Aggravated: any pressure Treatments: rest/alter normal da michaelle activity , Examination Category Sub-Category Detail Notes Category Not es Ingrown Nail INSPECTION: Reveals nail inc urvation, dull pain on palpation due to neuropathy, groove hypertrophy, Bilateral nail borders, TA Neuroma Pain PALPATION: Neurological SENSORY: Neurological exa m demonstrates, reduced light touch sensation, reduced sharp/dull pin prick discrimination , B/L,reduced vibration sensation, 5.07 monofilament test performed at plantar aspects of 5 varied sites per foot shows sensation, reduced , B/L, Pt relates, stinging, anesthesia, B/L with itingling sensations at night time 30% less Dermatologic SKIN FINDINGS: , Skin exam reve als keratotic lesion(s) located at ,B/L Heel(s) , , Skin shows sign(s) of, dryness, scaling, in a stocking fashion, no fissure(s) present, B/L, approximately 60 percent LESS General Examination GENERAL APPEARANCE: Reveals a pleasant, alert, well nourished, well-developed, well hydrated individual, who demonstrates proper attention to hygiene/body habitus, and is in no acute distress, Pt serves as own historian for office visit today FOOT EXAM: Lower Extremity Neurological Exa m performed:: Yes Visual exam of foot performed:: Yes Date: 08/08/2024 Sensory testing performed:: sensations d iminished Sensory and motor testing performed:: se nsations diminished Pedal pulse taking performed:: 2+ ORIENTED: person, place, and t sagrario Ophthalmology Referral DIABETES EYE EXAM Procedure Perform ed:: Yes ?Date of Exam Performed: 08/09/2023 Findings of Diabetic Eye Exam:: no retin opathy Vascular DP PULSES (B): 2/4, B/L PT PULSES (B): 1/4, B/L CAPILLARY FILL TIME: immediate, all digi ts, B/L TEMPERTURE GRADIENT (C): normal, warm to cool, proximal to distal, B/L, B/L TROPHIC CONDITION-TEXTURE/ELASTICITY/TURGOR/HAIR GROWTH (B): normal, B/L PIGMENTATION: normal, B/L Nails NAILS are: Elongated, overg rown, dystrophic, lytic, greater than 3mm thick, discolored and friable with crumbly malodorous subungual debris, with dull to no pain on palpation due to neuropathy, T1 T2 T3 T4 T9 T7 , CQM Exceptions: Hemoglobin A1c not performed Reason:: No r genesis specified
--- OUTSIDE RECORDS SUMMARY | 2024-10-31 12:28 | XMS_ITS | Data Portability ---
Author Organization [place] - [facility], Allergy Address [address] [address] Care Team Providers Care Radio Reporter Name Role Phone CARLA MONCADA Primary Care Provider Assessment No assessment recorded. Plan of Treatment Reminders Order Date Submit Date Provider Last Modified By Organization Details Last Modified Time Details Appointments None recorded. Lab None recorded. Referral None recorded. Procedures None recorded. Surgeries None recorded. Imaging None recorded. Medication Orders ipratropium bromide 21 mcg (0.03 %) nasal spray 2023 024 [employer] [facility], [address] [place] [address], [facility], [place], [place], [id number], 4 10:26:51 Patient TargetsNo targets recorded. Patient InstructionsNo instructions recorded. Reason for Referral None Reported. Problems Name Problem SNOMED Code Status Onset Date Resolution Date Notes Provider Name and Address Organization Details Recorded Time [facility] ce of salivary secretion 49848143 Active 2021 [facility] camille of salivary secretion ; Note: Date Diagnosed : 2 4:44 PM (K11.7) Not Available [facility] 4 03:11:05 Chronic rhinitis 37834248 Active 2021 Chronic rhinitis; Note: Date Diagnosed : 2 4:44 PM (J31.0) Not Available [facility] 4 03:11:06 Feeling of lump in throat 635667097 Active 2023 DOUGLAS NARANJO MD 100 [facility] 100, [facility] [place], [phone] , [facility] - [facility] [place] 4 10:19:36 Posterior rhinorrhe a 30805867 Active 2023 DOUGLAS NARANJO MD 100 [facility],[place] [address], [facility] [place], [address] , [facility] - [facility] 4 10:19:44 Ptosis of left upper eyelid 99980922038 9107 Active 2023 DOUGLAS NARANJO MD 100 [facility],[place] [address], [facility] [place], [address] , [facility] - [facility] 4 10:29:43 Allergic rhinitis 21696617 Active 2023 Silke márquez, [place] - [facility] [place] 4 13:36:28 Problem Notes None recorded. Procedures Surgical History Date Name Laterality Status Provider Name and Address Organization Details Recorded Time 06/30/20 24 Fiberoptic Laryngoscopy (Comprehensive) completed DOUGLAS OLVERA MD 100 [facility],[place] [address], [place], [address], [facility] - [facility] 06/30/2024 10:25:51 proximal subtotal gastrectomy by abdominal approach completed Harrison Garcia [place] - [facility] 06/30/2024 10:25:00 Imaging Results None recorded. Procedure Notes None recorded. Medical Equipment None Reported. Medications Name Sig Start Date Stop Date Status Note LastModified by Organization Details LastModified Time losartan 50 mg tablet active Medicati on ID: [id number] B rand Name: losartan Send Method: E-Prescr [...] 10 mg tablet active Medicati on ID: [id number] B rand Name: amlodipi ne Send Method: E-Prescr ibed Sub s Allowed: subs OK Medic ationGen ericName : amlodipi ne Not Available Not Available Not Available cephalexi n 500 mg capsule TAKE 1 CAPSULE BY MOUTH EVERY 6 HOURS FOR 7 DAYS 06/30 completed Not Available Not Available Not Available furosemid e 20 mg tablet active Medicati on ID: 328371 B rand Name: furosemi de Send Method: E-Prescr ibed Sub s Allowed: subs OK Medic ationGen ericName : furosemi de Not Available Not Available Not Available bethanech ol chloride 50 mg tablet TAKE 1 TABLET BY MOUTH TWICE DAILY active Not Available Not Available No t Available ipratropi um bromide 21 mcg (0.03 %) nasal spray active Not Available Not Available Not Available finasteri de 5 mg tablet active [...] Updated DateTime 06/30/2024 165.1 cm 29.5 kg/m2 77904.85 g Harrison Garcia [place] - [facility] 06/30/2024 09:57:49 Social History None recorded. Functional Status None recorded. Mental Status None recorded. Family History Nothing Reported. 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 I do not see any pooling of secretions that would suggest significan t obstructio n requiring any interventi on. Posterior rhinorrhea 823 09994 R09.82 Ptosis of left upper eyelid 5865725291 16221 H02.402 Health Concerns Section Related Observation LastModified by Organization Detai ls LastModified Time None Recorded Concern Status LastModified by Organization Details LastModified Time None Recorded Advance Directives Directive None Recorded Payers Encounter Date Sequence Insurance Name Policy Number Policy Wallace Covered Member ID Wallace Member ID Guarantor Name 06/30/2024 1 [facility] [id number] 01 Augustus Reeder [id number] Henrydonald Oswaldra Notes Date Note Type Note Provider Name and Address Organization Details Recorded Time 4 text/htm l Last seen in 2021. Has chronic clear nasal d/c and PND. Frequently clearing his throat Using decongestant sprays intermittentlyPreviously given AtroventHx of cricopharyngeal spasm DOUGLAS OLVERA MD [address] [place] [address], [phone], [facility] - [facility] 06/30/2024 10:31:33
--- OUTSIDE RECORDS SUMMARY | 2024-10-31 12:28 | XMS_ITS ---
Author Organization [facility] Address [address] [place] [address] Care Team Providers Care Junior Programmer Name Role Phone Carmen Peters Primary Care Provider UnavailZulma Dey [phone] Faust Encounters Encounter Location Date Provider Diagnosis [address] [address] 08/14/2024 Zulma Toro Plan Of Treatment Next Appt Details Provider Name:Zulma Tanna Toro , 11/02/2024 11:30:00 AM, [address] [place] [address], [phone], Progress Notes * ELISEOAugustus CALLAHAN FDOB:[birth year] (78 yo M)Acc No.[id number]:08/14/2024 Progress Note Patient:?Augustus GOMES Provider:?Zulma Toro DPM :1945???Age:78 Y???Sex:Male Stiven e:08/14/2024 Address:[address] [place] [phone] Pcp:Carmen Peters Subjective: * Chief Complaints: * ???1. Dr Faust. * Medical History:? Objective: * Vitals:? Assessment: Plan: * Treatment: * Images: * The named appointment provid er may or may not be the originator of this progress note, and it is not deemed complete until electronically signed by the appointment provider. Sign off status: Pending * Provider:Rachel Toro DPM Date:?2024 Generated for Sarah Beth pollack/Loraine/Jesus on:?10/31/2024 12:28 PM EDT
--- OUTSIDE RECORDS SUMMARY | 2024-10-31 12:28 | XMS_ITS ---
Author Organization [facility] Address [address] [place] [address] Care Team Providers Care All Round Butcher Name Role Phone Carmen Peters Primary Care Provider Unavailabl e Black, Zulma Unavailable [phone] Allergies No Known Allergies REASON FOR VISIT At Risk Footcare, Foot pain, Skin problem(s) Medications Medication SIG (Take, Route, Frequency, Duration) Notes Start Date End Date Status Metoprolol Succinate 100 MG 1 capsule Orally Once a day for 30 day(s) Active glipiZIDE 5 MG 1 tablet 30 minutes before breakfast Orally Once a day for 30 day(s) 1 AM, 1 PM Active Atorvastatin Calcium 40 MG as directed Orally Active eliquis 5 mg 02/05/2022 Active Aspirin 81 MG 1 tablet Orally Once a day for 30 day(s) Not-Taking Amoxicillin 100 mg for 1 month Active Pioglitazone HCl 15 MG 1 tablet Orally Once a day for 30 day(s) Active Ammonium Lactate 12 % 1 application Externally to feet except for between the toes Twice a day for 30 days Active Losartan Potassium 50 MG 1 tablet Orally Once a day for 30 day(s) Active Social History Tobacco Use: Social History Observation Description Date Details (start date - stop date) Never Smoker NA - NA Tobacco Use/Smoking Question Answer Notes Are you a: nonsmoker Additional Findings: Tobacco Non-User Current no n-smoker Tobacco use other than smoking: Question Answer Notes Are you an other tobacco user? No Vital Signs Height 5 ft 5 in in 05/01/2024 Weight 185 lbs 05/01/2024 BMI 30.78 kg/m2 05/01/2024 Procedures Procedure Date Ordered Date Performed Result Body Sit e 22232-TDTLENS NAIL, 6 OR MORE 05/01/2024 N/A 32767-AIQR SKIN LESIONS, 2 TO 4 05/01/2024 N/A Encounters Encounter Location Date Provider Diagnosis [facility] [place] [address] [place] [address] 05/01/2024 Zulma Toro Neuralgia and neuritis, unspecified M79.2 ; Xerosis of skin L85.3 ; Type 2 diabetes mellitus with diabetic polyneuropathy E11.42 ; Tinea unguium B35.1 ; Pain in left foot M79.672 ; Neuropathy G62.9 and Tingling in extremities R20.2 Assessments Encounter Date Diagnosis (ICD Code) Assessment Notes Treatment Notes Treatment Clinical Notes Section Notes 05/01/2024 Neuralgia and neuritis, unspecified (ICD-10 - M79.2) 05/01/2024 Xerosis of skin (ICD-10 - L85.3) 05/01/2024 Type 2 diabetes mellitus with diabetic polyneuropathy (ICD-10 - E11.42) 05/01/2024 Tinea unguium (ICD-10 - B35.1) 05/01/2024 Pain in left foot (ICD-10 - M79.672) 05/01/2024 Neuropathy (ICD-10 - G62.9) 05/01/2024 Tingling in extremities (ICD-10 - R20.2) Plan Of Treatment Medication Medication Name Sig Start Date Stop Date Notes Ammonium Lactate 12 % 1 application Exte rnally to feet except for between the toes Twice a day for 30 days Pending Test Test Name Order Date 64610-NTTVMDR NAIL, 6 OR MORE 05/01/2024 54545-POBO SKIN LESIONS, 2 TO 4 05/01/20 24 Next Appt Details Follow Up: prn, Reason: Provider Name:Zulma Toro , 11/02/2024 11:30:00 AM, [address] [place] [address], [phone], Procedure Notes * Category Sub-Category Detail Notes Debride Nail 6-10 Nail debridement Nail debridem ent performed extensively to reduce/remove overall nail length and girth, subungual debris, and necrotic tissue, by manual and electrical means with use of a nail nipper and/or dremel, to more viable healthy nail plate or bed tissue 6-10. Silver nitrate used for any petechial bleeding as necessary. Patient chooses, to use a topical antifungal, pharmaceutical tx (30135) Keratoma Treatment Parring or Cutting o f Benign Hyperkeratotic Lesion(s) 45063 (2-4 Lesions) - The Benign hyperkeratotic lesions, as described above were pared, and/or cut utilizing a sterile #15 blade, tissue nippers, and/or dremel Progress Notes * Augustus GOMES FDOB:[birth year] (78 yo M)Acc No.[id number]:05/01/2024 Progress Note Patient:?Augustus Gomes Provider:?Zulma Toro DPM :1945???Age:78 Y???Sex:Male Stiven e:05/01/2024 Address:[address] [place], [place] [phone] Pcp:Carmen Peters Subjective: * Chief Complaints: * ???At Risk FootcareFoot pain Skin problem(s) * HPI: ???At Risk footcare:?Pt States Last PCP Visit:?Date?01/10/2024 ???Foot Pain:?Nature:?tingling.?Location:?, B/L , L > R.?Duration:?several months.?Onset:?unknown.?Course:?, unchanged.?Aggravated:?any pressure.?Treatments:?rest/alter normal daily activity , Pt relates non-compliance with recommended treatment plan-topical pain medication.?Skin problems:?Nature:?dryness , scaling.?Location:?B/L .?Duration:?several days.?Course:?worse.? * ROS:?General/Constitutional:?Nausea?denies.?Vomiting?denies.?Hunger Thirst?denies.?Loss appetite?denies.?Chills?denies.?Fatigue?denies.?Fever?denies.?Night Sweats?denies.?Unexplained weight loss?denies.?Unexplained weight gain?denies.?HEENTM:?Dentures?denies.?Dizziness?denies.?Glasses/contacts?admits.?Retinopathy?de nies.?Blurred/double vision?denies.?TMJ?denies.?Discharge/drainage?denies.?Implants?denies.?Sore throat?denies.?Dental implants?denies.?Hard of hearing ?denies.?Difficulty chewing/swallowing/speaking?denies.?Nose bleeds?denies.?Sore mouth?denies.?Respiratory:?On Oxygen?denies.?Pneumonia/pleurisy?denies.?Bronchitis?denies.?Emphysema?denies.?C oughing?denies.?Cough blood?denies.?Shortness of breath?denies.?Wheezing?denies.?Cardiovascular:?Pacemaker?denies.?MVP?denies.?WPW?denies.?CHF?denies.?Heart attack?denies.?Septal defect?denies.?Rapid beat?denies.?Chest pain ?denies.?Atrial Fib.?denies.?Murmur/Palpitations?denies.?Gastrointestinal:?Hemorrhoids?denies.?Stomach/Abdominal pain?denies.?Dark blood stool?denies.?Irritable bowel ?denies.?Constipation?denies.?Diarrhea?denies.?Hematology:?Swelling?denies.?Clots?denies.?Varicose Veins?denies.?Bruising?denies.?Bleeding problem?denies.?Genitourinary:?Blood urine?denies.?Frequent/Painfu/urination/bladder control?denies.?Kidney stones?denies.?Infection (UTI)?denies.?Nephropathy?denies.?sex trans dis (STD)?denies.?Prostate?denies.?Musculoskeletal:?Hammertoes?denies.?Bunions?denies.?Back Pain?denies.?Muscle Cramps/ Resting?denies.?Muscle cramps / walking?denies.?Generalized aches and pains?denies.?Weakness?denies.?Integ.:?Contreras?denies.?Scars?denies.?Corns/calluses?denies.?Ingrown nails?denies.?Painful nails?admits.?Open Sores?denies.?Rashes?denies.?Neurologic:?Difficulty sleeping?denies.?Brain disorder?denies.?Numbness?denies.?Balance trouble?denies.?Confusion?denies.?Fainting/blackouts?denies.?Tingling?admits.?Tr emors?denies.? * Medical History:? 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 Siblings: alive, diagnosed with Other malignant neoplasm of unspecified site.?Children: diagnosed with Family history of arthritis.? * Social History:?Tobacco Use:?Tobacco Use/Smoking?Are you a:?nonsmoker ?Additional Findings: Tobacco Non-User?Current non-smoker ?Tobacco use other than smoking?Are you an other tobacco user??No ???Miscellaneous:?Caffeine: yes, frequency:, 1-2 cups per day. ?Children: yes. ?Exercise: yes, fishing. ?Marital status: . 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 * Medications:?TakingAmoxicill in , Notes: 100 mg for 1 monthPioglitazone HCl 15 MG Tablet 1 tablet Orally Once a dayLosartan Potassium 50 MG Tablet 1 tablet Orally Once a dayMetoprolol Succinate 100 MG Capsule ER 24 Hour Sprinkle 1 capsule Orally Once a dayglipiZIDE 5 MG Tablet 1 tablet 30 minutes before breakfast Orally Once a day, Notes: 1 AM, 1 PMAtorvastatin Calcium 40 MG Tablet as directed Orally eliquis 5 mg Tablet Taking Amoxicillin , Notes: 100 mg for 1 monthTaking Pioglitazone HCl 15 MG Tablet 1 tablet Orally Once a dayTaking Losartan Potassium 50 MG Tablet 1 tablet Orally Once a dayTaking Metoprolol Succinate 100 MG Capsule ER 24 Hour Sprinkle 1 capsule Orally Once a dayTaking glipiZIDE 5 MG Tablet 1 tablet 30 minutes before breakfast Orally Once a day, Notes: 1 AM, 1 PMTaking Atorvastatin Calcium 40 MG Tablet as directed Orally Taking eliquis 5 mg Tablet Not-Taking/PRNAspirin 81 MG Tablet Chewable 1 tablet Orally Once a dayMedication List reviewed and reconciled with the patientNot-Taking/PRN Aspirin 81 MG Tablet Chewable 1 tablet Orally Once a dayMedication List reviewed and reconciled with the patient * Allergies:?N.K.D.A.yes[Aller gies Verified] Objective: * Vitals:?Ht: 5 ft 5 in, Wt: 1 85, BMI: 30.78, Shoe size: 9, BS: 200, Wt-k.91 kg. * Examination: ???Ophthalmology Referral: ?DIABETES EYE EXAM?Diabetic Retinopathy Screening:?Yes ?Findings of Diabetic Eye Exam:?no retinopathy?General Examination: ?GENERAL APPEARANCE:?Reveals a pleasant, alert, well nourished, well- developed, well hydrated individual, who demonstrates proper attention to hygiene/body habitus, and is in no acute distress, Pt serves as own historian for office visit today.?ORIENTED:?person, place, and time.?FOOT EXAM:?Lower Extremity Neurological Exam performed:?No changes to the above exam findings since last visit?Neurological: ?SENSORY:? Neurological exam demonstrates, reduced light touch sensation, reduced sharp/dull pin prick discrimination , B/L,reduced vibration sensation, 5.07 monofilament test performed at plantar aspects of 5 varied sites per foot shows sensation, reduced , B/L, Pt relates, stinging, anesthesia, B/L?with increased tingling sensations at night time L.R.?Nails: ?NAILS are:?Elongated, overgrown, dystrophic, lytic, greater than 3mm thick, discolored and friable with crumbly malodorous subungual debris, with dull to no pain on palpation due to neuropathy, TA T1 T2 T3 T4 T9 T7 ,.?Dermatologic: ?SKIN FINDINGS:?, Skin exam reveals keratotic lesion(s) located at ,B/L Heel(s) ,? , Skin shows sign(s) of, dryness, scaling, in a stocking fashion, no fissure(s) present, B/L.? Assessment: * Assessment: 1.?Neuralgia and neuritis, u nspecified - M79.2, Nonadherent to recommendations?2.?Xerosis of skin - L85.3 (Primary), Acute problem, Uncomplicated (3),Rx Management (4)?3.?Type 2 diabetes mellitus with diabetic polyneuropathy - E11.42?4.?Tinea unguium - B35.1?5.?Pain in left foot - M79.672?6.?Neuropathy - G62.9?7.?Tingling in extremities - R20.2? Plan: * Treatment: 2.?Type 2 diabetes mellitus with diabetic polyneuropathy?Procedure: 47242-PNZE SKIN LESIONS, 2 TO 4 3.?Tinea unguium?Procedure: 81929-EMUMXCS NAIL, 6 OR MORE * Procedures:?Debride Nail 6-10:?Nail debridement?Nail debridement performed extensively to reduce/remove overall nail length and girth, subungual debris, and necrotic tissue, by manual and electrical means with use of a nail nipper and/or dremel, to more viable healthy nail plate or bed tissue 6-10. Silver nitrate used for any petechial bleeding as necessary. Patient chooses, to use a topical antifungal, pharmaceutical tx (22245).?Keratoma Treatment:?Parring or Cutting of Benign Hyperkeratotic Lesion(s)?02374 (2-4 Lesions) - The Benign hyperkeratotic lesions, as described above were pared, and/or cut utilizing a sterile #15 blade, tissue nippers, and/or dremel.? * Procedure Codes:?47831 DEBRI DE NAIL, 6 OR MORE, Modifiers: XS 18906 TRIM SKIN LESIONS, 2 TO 4, Modifiers: [...] other tx options for the patients condition, the patient wishes to try an be more compliant with recomm. tx plan.?Xerosis:?The patient was counseled on the diagnosis, potential etiologies, and treatment options for their skin condition. We discussed the risks and benefits of each option from performing no treatment, to utilizing OTC topical skin creams/ointments, to utilizing prescription topical creams/ointments, to utilizing customized compounded topical medications and use of nocturnal occlusion with any/all previously detailed therapies. We discussed the advantages and disadvantages of each possible treatment and importance for adherence to all the recommended therapies for optimum success and avoid potential complications such as open sore/infection/possible hospitalization. We discussed the potential effectiveness of each topical preparation as well as each ones possible side effects and/or patient medication interactions. Patient questions re: use, dosage, successful outcomes, and application consistency were reviewed and the patient verbalized that all answers were clearly understood. The patient has decided to apply Rx skin creams to their feet save the interspaces while paying special attention to the heels. Such was sent to their pharmacy at the time of visit.? * Follow Up:?prn * Images: * Sign off status: Completed true * Provider:?Zulma Toro DPM Date:?2023 Generated for Sarah Beth pollack/Loraine/Rangelitting on:?10/31/2024 12:28 PM EDT History and Physical Notes * HPI (History of Present Illness) Category Sub-Category Detail Notes Category Not es Skin problems Nature: dryness , scaling Location: B/L Duration: several days Course: worse At Risk footcare Pt States Last PCP Visit: Date: 4 Foot Pain Nature: tingling Location: , B/L , L > R Duration: several months Onset: unknown Course: , unchanged Aggravated: any pressure Treatments: rest/alter normal da michaelle activity , Pt relates non-compliance with recommended treatment plan-topical pain medication Examination Category Sub-Category Detail Notes Category Not es Ingrown Nail INSPECTION: Neuroma Pain PALPATION: Neurological SENSORY: Neurological exa m demonstrates, reduced light touch sensation, reduced sharp/dull pin prick discrimination , B/L,reduced vibration sensation, 5.07 monofilament test performed at plantar aspects of 5 varied sites per foot shows sensation, reduced , B/L, Pt relates, stinging, anesthesia, B/L with increased tingling sensations at night time L.R Dermatologic SKIN FINDINGS: , Skin exam reve als keratotic lesion(s) located at ,B/L Heel(s) , , Skin shows sign(s) of, dryness, scaling, in a stocking fashion, no fissure(s) present, B/L General Examination GENERAL APPEARANCE: Reveals a pleasant, alert, well nourished, well-developed, well hydrated individual, who demonstrates proper attention to hygiene/body habitus, and is in no acute distress, Pt serves as own historian for office visit today FOOT EXAM: Lower Extremity Neur ological Exam performed:: No changes to the above exam findings since last visit ORIENTED: person, place, and t sagrario Ophthalmology Referral DIABETES EYE EXAM Diabetic Retinopa thy Screening:: Yes Findings of Diabetic Eye Exam:: no retin opathy Nails NAILS are: Elongated, overg rown, dystrophic, lytic, greater than 3mm thick, discolored and friable with crumbly malodorous subungual debris, with dull to no pain on palpation due to neuropathy, TA T1 T2 T3 T4 T9 T7 ,
--- OUTSIDE RECORDS SUMMARY | 2024-10-31 12:28 | XMS_ITS | Patient Health Record ---
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 Name Role Phone Carmen Peters Primary Care Provider Unavailabl e Black, Zulma Unavailable [phone] Allergies Allergen (clinical drug ingredient) Drug/Non Drug Allergy documented on EMR Reaction Allergy Type Onset Date Status oxymetazoline Nasal Unknown Drug Allergy Act millie Reason For Referral No Information Medications Medication SIG (Take, Route, Frequency, Duration) Notes Start Date End Date Status Amoxicillin 100 mg for 1 month Not-Taking Escitalopram Oxalate 10 MG 1 tablet Orally Once a day Active Aspirin 81 MG 1 tablet Orally Once a day for 30 day(s) Not-Taking Furosemide 40 MG 1 tablet Orally Once a day Active Ammonium Lactate 12 % 1 application Externally to feet except for between the toes Twice a day for 30 days Not-Taking Tamsulosin HCl 0.4 MG 1 capsule Orally Once a day Active Losartan Potassium 50 MG 1 tablet Orally Once a day for 30 day(s) Not-Taking Bethanechol Chloride 50 MG 1 tablet 1 hour before or 2 hours after meals Orally Three times a day Active Pioglitazone HCl 15 MG 1 tablet Orally Once a day for 30 day(s) Not-Taking glipiZIDE 5 MG 1 tablet 30 minutes before breakfast Orally Once a day for 30 day(s) 1 AM, 1 PM Active Metoprolol Succinate 100 MG 1 capsule Orally Once a day for 30 day(s) Active Pregabalin 50 MG 1 capsule Orally Once a day Active Levothroid Active Multi Vitamin - 1 tablet Orally Once a day Active Ipratropium [place] 0.03 % 2 sprays in each nostril Nasally Twice a day Active eliquis 5 mg 02/05/2022 Active Atorvastatin Calcium 40 MG as directed Orally Active Immunizations Vaccine Route Administration Date Status Comme nts COVID-19 Moderna Vaccine Unknown 06/23/2021 Administered 1st dose 09/19/2020 Second Dose: 10/17/20 Influenza Unknown 08/09/2020 Administered Influenza Unknown 06/09/2022 Administered Influenza Unknown 04/09/2023 Administered Social History Tobacco Use: Social History Observation [...] Problem Status W/U Status Risk Notes Problem Polyneuropathy due to type 2 diabetes mellitus (310470705) Type 2 diabetes mellitus with diabetic polyneuropathy (E11.42) Active confirmed Problem Acquired hammer toe of right foot (1478048809284699 ) Other hammer toe(s) (acquired), right foot (M20.41) Active confirmed Problem Acquired hammer toe of left foot (6642414163005506 ) Other hammer toe(s) (acquired), left foot (M20.42) Active confirmed Problem Peripheral sensory neuropathy (477502993) Neuropathy (G62.9) Active confirmed Problem Mononeuropathy of lower limb (943967711) Neuritis of left foot (G57.92) Active confirmed Problem Acquired deformity of right foot (4500318494022372 0) PlantarFlexion of metatarsal of right foot (M21.6X1) Active confirmed Problem Skin sensation disturbance (10807089) Tingling in extremities (R20.2) Active confirmed Problem Essential hypertension (61685482) Essential hypertension (I10) Active confirmed Vital Signs Blood pressure diastolic 66 mm Hg 08/08/2024 Height 5 ft 5 in in 08/08/2024 Blood pressure systolic 175 mm Hg 08/08/2024 Weight 185 lbs 08/08/2024 BMI 30.78 kg/m2 08/08/2024 Procedures Procedure Date Ordered Date Performed Result Body Sit e 83192-OUBXRQQ NAIL, 6 OR MORE 01/24/2024 N/A 33399-EANY SKIN LESIONS, 2 TO 4 01/24/2024 N/A 62283-YQJHQNF NAIL, 6 OR MORE 05/01/2024 N/A 64430-VLXL SKIN LESIONS, 2 TO 4 05/01/2024 N/A 56128-CJZXLZS NAIL, 6 OR MORE 08/08/2024 N/A 31952-Ukopktng Plate 08/08/2024 N/A 88514-WDXA SKIN LESIONS, 2 TO 4 08/08/2024 N/A Encounters Encounter Location Date Provider Diagnosis [address] [address] 01/24/2024 Zulma Black Type 2 diabetes mellitus with diabetic polyneuropathy E11.42 ; Neuralgia and neuritis, unspecified M79.2 ; Tinea unguium B35.1 ; Pain in left foot M79.672 ; Neuropathy G62.9 and Tingling in extremities R20.[address] [address] 05/01/2024 Zulma Black Neuralgia and neuritis, unspecified M79.2 ; Xerosis of skin L85.3 ; Type 2 diabetes mellitus with diabetic polyneuropathy E11.42 ; Tinea unguium B35.1 ; Pain in left foot M79.672 ; Neuropathy G62.9 and Tingling in extremities R20.[address] [address] 08/08/2024 Zulma Black Neuralgia and neuritis, unspecified M79.2 ; Xerosis of skin L85.3 ; Type 2 diabetes mellitus with diabetic polyneuropathy E11.42 ; Tinea unguium B35.1 ; Neuropathy G62.9 ; Tingling in extremities R20.2 and Ingrown nail L60.0 Assessments Encounter Date Diagnosis (ICD Code) Assessment Notes Treatment Notes Treatment Clinical Notes Section Notes 01/24/2024 Type 2 diabetes mellitus with diabetic polyneuropathy (ICD-10 - E11.42) 01/24/2024 Neuralgia and neuritis, unspecified (ICD-10 - M79.2) 05/01/2024 Neuralgia and neuritis, unspecified (ICD-10 - M79.2) 05/01/2024 Xerosis of skin (ICD-10 - L85.3) 08/08/2024 Neuralgia and neuritis, unspecified (ICD-10 - M79.2) 08/08/2024 Xerosis of skin (ICD-10 - L85.3) 08/08/2024 Type 2 diabetes mellitus with diabetic polyneuropathy (ICD-10 - E11.42) 05/01/2024 Type 2 diabetes mellitus with diabetic polyneuropathy (ICD-10 - E11.42) 01/24/2024 Tinea unguium (ICD-10 - B35.1) 01/24/2024 Pain in left foot (ICD-10 - M79.672) 05/01/2024 Tinea unguium (ICD-10 - B35.1) 08/08/2024 Tinea unguium (ICD-10 - B35.1) 08/08/2024 Neuropathy (ICD-10 - G62.9) 05/01/2024 Pain in left foot (ICD-10 - M79.672) 01/24/2024 Neuropathy (ICD-10 - G62.9) 01/24/2024 Tingling in extremities (ICD-10 - R20.2) 08/08/2024 Tingling in extremities (ICD-10 - R20.2) 05/01/2024 Neuropathy (ICD-10 - G62.9) 05/01/2024 Tingling in extremities (ICD-10 - R20.2) 08/08/2024 Ingrown nail (ICD-10 - L60.0) Plan Of Treatment Pending Test Test Name Order Date 84986-OFGGGYO NAIL, 6 OR MORE 02/17/2021 16046-VSVJUMN NAIL, 6 OR MORE 05/29/2021 22187-IDVBLAX NAIL, 6 OR MORE 09/08/2021 42969-FNWHLOP NAIL, 6 OR MORE 02/05/2022 80974-HLSJJLT NAIL, 6 OR MORE 05/07/2022 00313-LTPCGLW NAIL, 6 OR MORE 09/10/2022 57059-GUBYREK NAIL, 6 OR MORE 12/17/2022 32026-QCBEBGQ NAIL, 6 OR MORE 03/29/2023 22967-MFHCEWS NAIL, 6 OR MORE 06/28/2023 41164-SNCWCDX NAIL, 6 OR MORE 10/11/2023 76758-TDLKAUO NAIL, 6 OR MORE 01/24/2024 43046-DNZEMAX NAIL, 6 OR MORE 05/01/2024 57638-OZLEIOW NAIL, 6 OR MORE 08/08/2024 88035-Oknl Destruction, 1-14 05/29/2021 14793-Oqsklozu Plate 09/08/2021 24245-Kjcetxae Plate 08/08/2024 12571-Fynnfdzm Plate 02/05/2022 79498-Kkzxgike Plate 03/29/2023 53382-Dwybdgur Plate Each Additional 06125-UHOX SKIN LESIONS, 2 TO 4 05/07/20 22 81607-ZMDN SKIN LESIONS, 2 TO 4 12/18/19 23 12665-QIJS SKIN LESIONS, 2 TO 4 09/10/19 23 60037-VURQ SKIN LESIONS, 2 TO 4 02/18/20 21 31870-YXZW SKIN LESIONS, 2 TO 4 05/29/20 21 21211-RXEL SKIN LESIONS, 2 TO 4 02/06/20 22 67131-QCBR SKIN LESIONS, 2 TO 4 09/08/19 22 89845-OOIW SKIN LESIONS, 2 TO 4 03/29/20 23 83470-AFXB SKIN LESIONS, 2 TO 4 10/11/19 24 36029-CTKG SKIN LESIONS, 2 TO 4 06/28/20 23 23223-BTLH SKIN LESIONS, 2 TO 4 08/08/20 24 19830-NWAO SKIN LESIONS, 2 TO 4 05/01/20 24 38434-UDJS SKIN LESIONS, 2 TO 4 01/24/20 24 32265-Wecd. Subungual Hematoma 3 93050,K2159-IMG TENDON SHEATH/LIGAMENT 1 Next Appt Details Provider Name:Zulma Toro , 11/02/2024 11:30:00 AM, [address] [facility], [place], [address], Insurance Providers Payer Name Payer Address Payer Phone Subscriber Number Group Number Insured Name Patient Relationship to Insured Coverage Start Date Coverage End Date [employer] [place] [employer] [address] [place] [address] [id number] Augustus Reeder Self - patient is the insured Medical (General) History Medical History History ICD Code Cancer Hypertension High Cholesterol Arthritis Back,Hip,and Knee pain Cataracts Diabetic Stomach ulcer Chicken pox Transfusions Rosacea A-Fib Shingles Surgical History Surgery Date(Month/Year) 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
== END 2024-10-31 10:53 | disposition home or self-care (01) ==
LOC: HO.HCS 10:24
PROVIDERS: PCP Internal Medicine; Visit Provider Internal Medicine
DX: I48.0 Paroxysmal atrial fibrillation (principal); I50.32 Chronic diastolic (congestive) heart failure; I25.10 Atherosclerotic heart disease of native coronary artery without angina pectoris; I10 Essential (primary) hypertension; G47.33 Obstructive sleep apnea (adult) (pediatric); J84.9 Interstitial pulmonary disease, unspecified
CPT/HCPCS: 99214; G2211

== ENCOUNTER → 2024-10-31 10:24 | Outpatient (BNVA) | payer MEDICARE, SELFPAY | PROVIDERS: PCP Internal Medicine; Visit Provider Internal Medicine | DX: I11.0 Hypertensive heart disease with heart failure (principal); I50.32 Chronic diastolic (congestive) heart failure; I48.0 Paroxysmal atrial fibrillation; I25.10 Atherosclerotic heart disease of native coronary artery without angina pectoris; J84.9 Interstitial pulmonary disease, unspecified; G47.33 Obstructive sleep apnea (adult) (pediatric) | CPT/HCPCS: 99212 ==

== ENCOUNTER 2024-11-16 09:53 | Outpatient (REF) | payer MEDICARE, SELFPAY ==
--- OUTSIDE RECORDS SUMMARY | 2024-11-16 11:20 | XMS_ITS | Data Portability ---
Author Organization [place] - [facility] Address [address] [address] Care Team Providers Care Supervisor Game Farm Name Role Phone CARLA MONCADA Primary Care Provider Assessment No assessment recorded. Plan of Treatment Reminders Order Date Submit Date Provider Last Modified By Organization Details Last Modified Time Details Appointments None recorded. Lab None recorded. Referral None recorded. Procedures None recorded. Surgeries None recorded. Imaging None recorded. Medication Orders ipratropium bromide 21 mcg (0.03 %) nasal spray 2023 024 [place] [facility], [address] [place] [address], [facility] [address], [place], [place], [phone], 4 10:26:51 Patient TargetsNo targets recorded. Patient InstructionsNo instructions recorded. Reason for Referral None Reported. Problems Name Problem SNOMED Code Status Onset Date Resolution Date Notes Provider Name and Address Organization Details Recorded Time [facility] ce of salivary secretion 14559030 Active 2021 [facility] of salivary secretion ; Note: Date Diagnosed : 2 4:44 PM (K11.7) Not Available [facility] 4 03:11:05 Chronic rhinitis 05500141 Active 2021 Chronic rhinitis; Note: Date Diagnosed : 2 4:44 PM (J31.0) Not Available [facility] 4 03:11:06 Feeling of lump in throat 049663974 Active 2023 DOUGLAS NARANJO MD [address] [facility] [place] [address], [facility] [place], [address] , [facility] - [facility] 4 10:19:36 Posterior rhinorrhe a 17559950 Active 2023 DOUGLAS NARANJO MD [address] [facility],[place] [address], [facility] [place], [address] , [facility] - [facility] 4 10:19:44 Ptosis of left upper eyelid 98332272087 9107 Active 2023 DOUGLAS NARANJO MD [address] [facility],[place] [address], [facility] [place], [address] , [facility] - [facility] 4 10:29:43 Allergic rhinitis 66896989 Active 2023 Silke márquez, [place] - [facility] 4 13:36:28 Problem Notes None recorded. Procedures Surgical History Date Name Laterality Status Provider Name and Address Organization Details Recorded Time 06/30/20 24 Fiberoptic Laryngoscopy (Comprehensive) completed DOUGLAS OLVERA MD [address] [facility],[place] [address], [place], [address], [facility] - [facility] 06/30/2024 10:25:51 proximal subtotal gastrectomy by abdominal approach completed Harrison Garcia [place] - [facility] 06/30/2024 10:25:00 Imaging Results None recorded. Procedure Notes None recorded. Medical Equipment None Reported. Medications Name Sig Start Date Stop Date Status Note LastModified by Organization Details LastModified Time losartan 50 mg tablet active Medicati on ID: 376524 B rand Name: losartan Send Method: E-Prescr [...] 10 mg tablet active Medicati on ID: 604781 B rand Name: amlodipi ne Send Method: E-Prescr ibed Sub s Allowed: subs OK Medic ationGen ericName : amlodipi ne Not Available Not Available Not Available cephalexi n 500 mg capsule TAKE 1 CAPSULE BY MOUTH EVERY 6 HOURS FOR 7 DAYS 06/30 completed Not Available Not Available Not Available furosemid e 20 mg tablet active Medicati on ID: 998230 B rand Name: furosemi de Send Method: [...] Updated DateTime 06/30/2024 165.1 cm 29.5 kg/m2 68504.85 g Harrison Garcia [place] - [facility] 06/30/2024 09:57:49 Social History None recorded. Functional Status None recorded. Mental Status None recorded. Family History Nothing Reported. Medical History Condition Response Heart Problems Y Asthma Y Past Encounters Encounter ID Performer Location Encounter Start Date Encounter Closed Date Diagnosis/Indication Diagnosis SNOMED-CT Code Diagnosis ICD10 Code Diagnosis Note [id number] DOUGLAS NARANJO MD [facility] [address] [address] 06/30/2024 09:41:04 06/30/2024 10:32:04 Chronic rhinitis 82937356 J31.0 Patient with chronic nasal drainage, postnasal [...] left ptosis Feeling of lump in throat 803636763 R09.89 We also discussed that some of his symptoms are likely due to his known history of cricophary ngeal spasm. I do not see any pooling of secretions that would suggest significan t obstructio n requiring any interventi on. Posterior rhinorrhea 805 29741 R09.82 Ptosis of left upper eyelid 5994352142 23523 H02.402 Health Concerns Section Related Observation LastModified by Organization Detai ls LastModified Time None Recorded Concern Status LastModified by Organization Details LastModified Time None Recorded Advance Directives Directive None Recorded Payers Encounter Date Sequence Insurance Name Policy Number Policy Wallace Covered Member ID Wallace Member ID Guarantor Name 06/30/2024 1 [facility] [id number] 01 Augustus Reeder [id number] Henrydonald Oswaldra Notes Date Note Type Note Provider Name and Address Organization Details Recorded Time 4 text/htm l Last seen in 2021. Has chronic clear nasal d/c and PND. Frequently clearing his throat Using decongestant sprays intermittentlyPreviously given AtroventHx of cricopharyngeal spasm DOUGLAS OLVERA MD [address] [place] [address], [phone], [facility] - [facility] 06/30/2024 10:31:33
[2024-11-16 13:26] LABS: MANUAL DIFF FLAG NO
[2024-11-16 13:44] LABS: Basophils Absolute Auto 0.1 X10*3/uL (0.0-0.2); Basophils Percent Auto 0.8 % (0-2); Eosinophils Absolute Auto 0.4 X10*3/uL (0.0-0.4); Eosinophils Percent Auto 7.3 % (0-4); Hematocrit 39.4 % (42.0-52.0); Hemoglobin 12.5 g/dl (14.0-18.0); Imm Gran Abs Auto 0.03 X10*3/uL (0.00-0.03); Imm Gran Pct Auto 0.5 % (0.0-0.4); Lymphocytes Absolute Auto 1.3 X10*3/uL (1.2-4.9); Lymphocytes Percent Auto 21.5 % (20-40); Mean Corpuscular HGB Conc 31.7 g/dl (31.0-36.0); Mean Corpuscular Volume 82.1 fL (80.0-98.0); Mean Platelet Volume 10.4 fL (9.4-12.4); Monocytes Absolute Auto 0.6 X10*3/uL (0.1-1.2); Monocytes Percent Auto 10.5 % (2-11); Neutrophils Absolute Auto 3.6 x10*3/uL (2.0-8.3); Neutrophils Percent Auto 59.4 % (45-73); Platelet Count 154 X10*3/uL (160-400); Red Cell Distribution Width 17.2 % (11.0-16.0)
[2024-11-16 14:09] LABS: Alanine Aminotransferase 24 U/L (0-40); Alkaline Phosphatase 111 U/L (39-117); Anion Gap 15 (12-20); Aspartate Amino Transferase 47 U/L (5-37); Bilirubin Total 0.9 mg/dL (0.0-1.0); Blood Urea Nitrogen 26 mg/dL (9-16); Calcium 9.6 mg/dL (8.4-10.2); Carbon Dioxide 30 mmol/L (22-29); Chloride 102 mmol/L (96-108); Estimated Glomerular Filt Rate 46; Glucose Random 99 mg/dL (60-115); Potassium 4.7 mmol/L (3.3-5.1); Sodium 142 mmol/L (135-145); Total Protein 7.3 g/dL (6.5-8.0)
[2024-11-16 14:13] LABS: B Type Natriuretic Peptide 217 pg/mL (<100)
== END 2024-11-16 09:54 | disposition home or self-care (01) ==
LOC: HO.HMGCLDS 09:53
DX: Z00.00 Encounter for general adult medical examination without abnormal findings (principal); M79.89 Other specified soft tissue disorders
CPT/HCPCS: 36415; 80053; 83880; 85025

== ENCOUNTER 2024-11-22 10:20 | Outpatient (AMB) | payer MEDICARE, SELFPAY ==
[2024-11-22 10:38] VITALS: BP 140/76; PULSE 61; O2SAT 95; BMI 30.8
--- NOTE | 2024-11-22 10:38 | A.OFFPC_ITS ---
Vital Signs 11/22/24 10:38 Height 5 ft 5 in Weight 185 lb BMI 30.8 BP 140/76 H Blood Pressure Location Lt brachial Position Sitting Pulse 61 Pulse Source Pulse Oximeter Pulse Oximetry (%) 95 Oxygen Delivery Method Room Air Intake Visit Reasons: annual exam - see comments Intake Note: Patient is back on glipizide due to high blood sugars, I am not sure how to take the hold off. Request refills on lancets and test strips, only test once a day. Allergies amiodarone Adverse Reaction (Intermediate, Unverified 11/22/24 11:13) ILD amlodipine Adverse Reaction (Intermediate, Verified 11/22/24 10:38) leg swelling gabapentin Adverse Reaction (Intermediate, Verified 11/22/24 10:38) lethargy lisinopril Adverse Reaction (Intermediate, Verified 11/22/24 10:38) Cough metformin Adverse Reaction (Intermediate, Verified 11/22/24 10:38) lethargy Medication List - Last Reconciled 11/22/24 by Carmen Peters MD acetaminophen (Tylenol) 650 mg PO Q4H PRN albuterol sulfate 90 mcg/actuation 2 puffs inhalation Q4-6H PRN 60 days apixaban (Eliquis) 5 mg PO BID ascorbic acid (vitamin C) 250 mg PO DAILY atorvastatin 80 mg PO DAILY 90 days bethanechol chloride 50 mg PO BID 30 days blood sugar diagnostic (FreeStyle Test strips) Test once a day cholecalciferol (vitamin D3) (Vitamin D3) 25 mcg PO DAILY escitalopram oxalate 10 mg PO DAILY ferrous sulfate 325 mg PO DAILY furosemide 40 mg PO DAILY glipizide ER 5 mg PO DAILY lancets (FreeStyle Lancets) Once a day levothyroxine 100 mcg PO DAILY@1100 90 days metoprolol succinate ER 100 mg PO DAILY 90 days multivitamin 1 tab PO DAILY nystatin 1 appl See Protocol topical TID 7 days pregabalin 50 mg PO BID tamsulosin 0.4 mg PO BEDTIME 90 days walker (Ultra-Light Rollator misc) As directed Tobacco use date assessed: 08/21/24 Fall risk assessment: No Falls in past year Last assessed Fall Risk: 11/22/24 Dental Screening Dental Screen Date: 08/21/24 Did you have a dental visit in the last 12 months?: Yes Did you have a dental problem in the last 6 months where you did not have access to dental care?: No Was dental information given to patient?: Patient has dentist HPI annual exam - see comments HPI Details occ dizzy PFSH Medical History (Updated 11/22/24 @ 11:09 by Carmen Peters MD) Interstitial lung disease Shingles CHF (congestive heart failure) Preop exam for internal medicine Bilateral pleural effusion Pneumonia Physical deconditioning CKD (chronic kidney disease) stage 3, GFR 30-59 ml/min (HFpEF) heart failure with preserved ejection fraction Obesity (BMI 30-39.9) LARISSA (obstructive sleep apnea) PAF (paroxysmal atrial fibrillation) Type 2 diabetes mellitus with unspecified complications Peptic ulcer disease Non Hodgkin's lymphoma Anxiety and depression Hypercholesterolemia Vitamin D deficiency Obesity (BMI 30-39.9) Type 2 diabetes mellitus with hyperglycemia Thrombocytopenia Surgical History Hx of cataract extraction History of esophagogastroduodenoscopy (EGD) H/O colonoscopy H/O lymph node biopsy History of shoulder surgery Family History Father Lung cancer Mother Breast cancer Sister Breast cancer Brother Substance use disorder Sister No problems noted. Son No problems noted. Daughter No problems noted. Social History Household Members: Spouse and Children Housing: House Are you a primary live in caregiver to a significant other at home: No Do you presently have visiting nurse or other home services: No Alcohol intake: never Patient Tobacco Use Status: Never used Tobacco Tobacco use type: Cigarette e-Cigarette/Vaping Use: Never Used Second Hand Smoke Exposure: No Advance Directives Date on File: 12/19/21 service: No Current occupational status: retired Cognitive needs: Yes (Walker, cane) Hearing needs: No Vision needs: Yes (Glasses) Questionnaire PHQ-9 Over the last 2 weeks, how often have you been bothered by any of the following problems? 1. Little interest or pleasure in doing things: not at all 2. Feeling down, depressed, or hopeless: not at all 3. Trouble falling or staying asleep, or sleeping too much: not at all 4. Feeling tired or having little energy: several days 5. Poor appetite or overeating: not at all 6. Feeling bad about yourself - or that you are a failure or have let yourself or your family down: not at all 7. Trouble concentrating on things, such as reading the newspaper or watching television: not at all 8. Moving or speaking so slowly that other people could have noticed. Or the opposite - being so fidgety or restless that you have been moving around a lot more than usual: not at all 9. Thoughts that you would be better off or of hurting yourself in some way: not at all Total score: 1 Depression Screening Interpretation: Positive Depression Screening Done: Yes 88882 - PHQ-9 Billing: Yes Source: Developed by Drs. Simon Zhou, Latisha Huang, Ayo Rodríguez and colleagues, with an educational skye from [employer]. Thrive Questionnaire Date Thrive assessed: 08/21/24 I am a: Patient What is your living situation today?: I have a steady place to live Within the past 12 months, did the food you bought not last and you didn't have the money to get more?: Never true Within the past 12 months, did you worry whether your food would run out before you got money to buy more?: Never true Do you have trouble paying for medicines?: No Do you have trouble getting transportation to medical appointments?: No Do you have trouble paying your heating and electricity bill?: No Do you have trouble taking care of your child, family member or friend?: No Do you have trouble with day-to-day activities such as bathing, preparing meals, shopping, managing finances, etc.?: No Are you currently unemployed and looking for a job?: No Are you interested in more education?: No Please select the resources that you would like help with: None Currently or been in a relationship where the following occur: No concerns reported THRIVE Score: 0 AUDIT C Alcohol Use Questionnaire (AUDIT-C) 1. How often do you have a drink containing alcohol?: Never Total Score: 0 AIDAN-7 AMB Questionnaire AIDAN-7 Date AIDAN - 7 assessed: 08/21/24 Feeling nervous, anxious, or on edge: 0 = Not at all Not being able to stop or control worryin = Not at all Worrying too much about different things: 0 = Not at all Trouble relaxin = Not at all Being so restless that it is hard to sit still: 0 = Not at all Becoming easily annoyed or irritable: 0 = Not at all Feeling afraid as if something awful might happen: 0 = Not at all Total AIDAN-7 score (0-4 normal; 5-9 mild; 10-14 moderate; 15-21 severe): 0 Source: Developed by Drs. Simon Zhou, Latisha Huang, Ayo Rodríguez and colleagues, with an educational skye from [employer]. AIDAN-7 Assessment Billing AIDAN-7 Assessment Tool: AIDAN-7 Assessment 01110 Review of Systems Const Denies poor appetite and Denies weakness Eyes Denies no additional complaints ENT Reports Normal hearing present, Denies dizziness, Denies nasal congestion, Denies tinnitus and Denies sore throat Card Denies chest pain, Denies syncope, Denies rapid heart rate and Denies dyspnea Resp Denies cough and Denies dyspnea GI Denies change in stool character, Reports constipation, Denies diarrhea, Denies nausea and Denies vomiting Denies dysuria and Denies urinary frequency Neuro Reports Normal hearing present, Denies confusion, Denies dizziness, Denies sy ncope and Denies weakness Psych Denies confusion Physical exam (Primary Care) Vital Signs: Last Vital Signs Pulse 61 11/22/24 10:38 BP 140/76 H 11/22/24 10:38 Pulse Ox 95 11/22/24 10:38 Oxygen Delivery Method Room Air 11/22/24 10:38 BMI result Body Mass Index 30.8 Tobacco/Smoking Status: Tobacco use Status Tobacco use date assessed 08/21/24 11/22/24 10:50 Patient Tobacco Use Status Never used Tobacco 11/22/24 10:50 Tobacco use type Cigarette 11/22/24 10:50 e-Cigarette/Vaping Use Never Used 11/22/24 10:50 PHQ-9: PHQ-9 Score PHQ-9: Total score 1 11/22/24 11:10 Depression Screening Interpretation: Positive Thrive Assessment: Date of Thrive Assessment Date Thrive assessed 08/21/24 11/22/24 10:50 Currently or been in a relationship where the following occur: No concerns reported Const General: No confusion Orientation/consciousness: No confusion HENMT Head: Yes normocephalic Ears: external ears normal and TM's normal bilaterally Face and sinus: Yes normal facial exam Mouth: moist mucous membranes Throat: Yes tonsils normal Eyes Conjunctivae: conjunctivae normal Pupils: Equal, round and reactive pupils present and Pupil accommodation reflex normal Direct Ophthalmoscopy: normal light reflex Neck Neck: No lymphadenopathy Thyroid: Thyroid normal Chest Chest palpation & inspection: normal inspection of the chest Resp Effort & Inspection: normal respiratory effort and no audible wheezes Auscultation: clear to auscultation bilaterally, no crackles, no wheezes and lung sounds not diminished Cardio Rate: regular rate Rhythm: regular rhythm Peripheral pulses: radial pulses present and dorsalis pedis present GI Other: guaiac negative , no enlarged prostate, pin prick and pedal pulse good Palpation (GI): no masses Auscultation: normal bowel sounds and normoactive bowel sounds Skin General skin exam: no rashes or lesions noted Rashes: no rashes Neuro General: No confusion Cranial nerves: Yes Equal, round and reactive pupils present and Yes Normal hearing present Cognition (Neuro): normal cognition Gait exam (Neuro): Normal gait present Motor exam (neuro): 5/5 motor strength present throughout Deep tendon reflexes (DTR's): Right brachioradialis reflex intensity grade: 2+, Left brachioradialis reflex intensity grade: 2+, Right patellar reflex intensity grade: 2+ and Left patellar reflex intensity grade: 2+ Extrem General: No edema Results AMB Hemoglobin A1c AMB Hemoglobin A1c 5.6 % Last Edit by Maye Wiley CMA on 11/22/24 11 :05 Results Reviewed Results Reviewed: Laboratory Last Values Hgb A1c (Clinic) 5.6 % (4.0-6.0) 11/22/24 10:37 Coding Level of Care Code Est Pt Prev Care >65y(51407) Diagnoses Atherosclerotic cardiovascular disease I25.10 Interstitial lung disease J84.9 Iron deficiency anemia D50.9 PAF (paroxysmal atrial fibrillation) I48.0 Type 2 diabetes mellitus with hyperglycemia, without long-term current use of insulin E11.65 Diabetes mellitus assisted insulin use: without assisted use Hypothyroid E03.9 Chronic heart failure with preserved ejection fraction (HFpEF) I50.32 Essential hypertension I10 Hypercholesterolemia E78.00 Annual physical exam Z00.00 Additional Codes AIDAN-7 Assessment Billing - AIDAN-7 Assessment Tool: AIDAN-7 Assessment 98882 ([id number]) PHQ-9 - 75188 - PHQ-9 Billing: Yes ([id number]) Assessment & Plan Assessment & Plan (1) Atherosclerotic cardiovascular disease: Code(s): I25.10 - Atherosclerotic heart disease of [place] coronary artery without angina pectoris Category: Medical Plan: Control the cholesterol, weight, blood pressure, diabetes on anticoagulation with Eliquis (2) Interstitial lung disease: Code(s): J84.9 - Interstitial pulmonary disease, unspecified Category: Medical Plan: Supportive treatment follows up with Pulmonary amiodarone taken off (3) Iron deficiency anemia: Code(s): D50.9 - Iron deficiency anemia, unspecified Category: Medical Plan: Continuing to monitor, stable (4) PAF (paroxysmal atrial fibrillation): Comment: Cardioversion 12/04/2021 Code(s): I48.0 - Paroxysmal atrial fibrillation Category: Medical Plan: Continue with anticoagulation and because of the interstitial lung disease amiodarone is stopped. (5) Type 2 diabetes mellitus with hyperglycemia: Comment: dx ~ 2014-does not check glucose at home Code(s): E11.65 - Type 2 diabetes mellitus with hyperglycemia Category: Medical Qualifiers: Diabetes mellitus intermediate frame tender insulin use: without intermediate frame tender use Qualified Code(s): E11.65 - Type 2 diabetes mellitus with hyperglycemia Plan: Decrease the amount of carbohydrate intake, pasta, bread, rice and potatoes are all sugar and that is aside from all the sweet stuff, remember that fruits are good but they are Sweet also. Glipizide 5 mg on hold (6) Hypothyroid: Code(s): E03.9 - Hypothyroidism, unspecified Category: Medical Plan: Continue with thyroid medication (7) Chronic heart failure with preserved ejection fraction (HFpEF): Code(s): I50.32 - Chronic diastolic (congestive) heart failure Category: Medical Plan: Continuing with diuretics and monitor renal function weigh daily (8) Essential hypertension: Code(s): I10 - Essential (primary) hypertension Category: Medical Plan: Continue with blood pressure medication. Decrease salt intake and exercise on metoprolol 100 mg once a day (9) Hypercholesterolemia: Code(s): E78.00 - Pure hypercholesterolemia, unspecified Category: Medical Plan: Avoid fried foods, chicken skin, eggs, butter margarine, pastries and meat. Be it pork or beef they have a lot of cholesterol on atorvastatin 80 mg once a day (10) Annual physical exam: Code(s): Z00.00 - Encounter for general adult medical examination without abnormal findings Category: Medical Plan History of Present Illness The patient is an 79-year-old male presenting with an annual wellness exam. He has multifactorial health issues, including hypertension, diabetes mellitus, and congestive heart failure with preserved ejection fraction. His atrial fibrillation and interstitial lung disease contribute to shortness of breath, especially upon exertion. Interstitial lung disease also led to discontinuation of Amiodarone. Anemia and thrombocytopenia were identified in recent blood tests. The patient manages his diabetes effectively with a hemoglobin A1c of 5.6%. He experiences occasional dizziness and swallowing difficulties, and there are ongoing issues related to urinary retention. Health Maintenance - Monitoring for colonoscopy due, last completed in 2013 - Annual blood work with thyroid testing scheduled in three months - Regular monitoring of renal function and electrolyte levels due to chronic conditions - Encouragement of a healthy diet rich in fruits, vegetables, and adequate hydration - Regular follow-up with cardiology, pulmonary, urology, and infectious disease specialists Social History - Engages in some daily activity such as light home maintenance - Maintains a balanced diet with fruits and salads; drinks regular tea and water - Does not smoke or consume alcohol - Reports weight management concerns, refraining from significant weight gain Review of Systems - Cardiovascular: Reports shortness of breath on exertion; denies chest pain - Respiratory: Denies persistent cough or wheezing - Gastrointestinal: Reports occasional difficulty swallowing; denies nausea or vomiting - Genitourinary: Reports incomplete bladder emptying - Musculoskeletal: Reports occasional dizziness - Neurological: Denies loss of consciousness; reports occasional equilibrium issues Physical Exam General: Cooperative, healthy appearing, comfortable, no acute distress and well developed Orientation: Patient oriented x3 Limitations: No limitations Head: Normal to inspection Ears: Hearing grossly normal bilaterally Nose: Normal external nose present Face and sinus: Normal facial exam Eyes: Appearance normal, both eyes and all related structures Neck: Normal visual inspection and Yes full ROM Respiratory: Normal respiratory effort and able to speak in complete sentences. Clear to auscultation bilaterally Cardiovascular: Regular rate and rhythm. Normal S1 and S2 GI: Normal to inspection. Soft to palpation and nontender Skin: No rashes or lesions noted Neuro: Patient oriented x3 Extremities: Normal to inspection Results - Labs: Anemia (Hemoglobin: 12.5 mg/dL); Mild thrombocytopenia; Renal function (Creatinine: 1.48); LDL cholesterol (67) - Other: Hemoglobin A1c (5.6%); Elevation in liver enzymes consistent with fatty liver Plan The patient will maintain current management strategies for his chronic conditions, including anticoagulation and cholesterol-lowering therapies. Attention to medication side effects and the addition of Ozempic for weight management will be explored cautiously, considering diabetes control. Regular check-ups and follow-ups with specialist consults will continue to ensure comprehensive care. Patient was informed and verbally consented to the use of an ambient scribe for clinic note documentation during this visit. Discussion Notes During the visit, I explained the management of the patient's chronic conditions, emphasizing the discontinuation of Amiodarone due to interstitial lung disease. We discussed the continuation of Eliquis and Atorvastatin and the plan to monitor renal function and electrolytes regularly. The possibility of initiating Ozempic for weight management was deliberated, understanding its role in controlling appetite and contributing to diabetes management. I informed the patient about the importance of ongoing evaluation by specialists and scheduled the necessary follow-up testing to adjust care plans as required. The conversation also included the importance of lifestyle factors, specifically highlighting diet, hydration, and exercise in maintaining the patient's overall health. Patient Instructions - Continue current medications as prescribed. - Schedule and attend regular medical follow-ups and specialist visits. - Begin using Ozempic for weight management under medical guidance. - Ensure adequate hydration and maintain a balanced diet. - Monitor blood pressure and blood glucose levels regularly at home. - Watch for symptoms like dizziness or irregular heartbeats, and report them promptly. - Seek medical assistance if experiencing unusual symptoms or conditions. Orders: Orders AMB Hemoglobin A1c Today Z13.9 - Encounter for screening, unspecified Complete Blood Count Auto Diff 3 Months E11. - Type 2 diabetes mellitus with hyperglycemia Free T4 (Free Thyroxine) 3 Months E11.65 - Type 2 diabetes mellitus with hyperglycemia Thyroid Stimulating Hormone 3 Months E11. - Type 2 diabetes mellitus with hyperglycemia Vitamin B12 and Folate 3 Months E11. - Type 2 diabetes mellitus with hyperglycemia Reticulocyte Count 3 Months E11.65 - Type 2 diabetes mellitus with hyperglycemia Ferritin 3 Months E11. - Type 2 diabetes mellitus with hyperglycemia Comprehensive Met. Panel 3 Months E11. - Type 2 diabetes mellitus with hyperglycemia Lipid Panel 3 Months E11. - Type 2 diabetes mellitus with hyperglycemia, E78.00 - Pure hypercholesterolemia, unspecified Hemoglobin A1c 3 Months E11.65 - Type 2 diabetes mellitus with hyperglycemia UA CC w/rflx Micro + Cult 3 Months E11.65 - Type 2 diabetes mellitus with hyperglycemia, R30.0 - Dysuria IRON PROFILE 3 Months E11.65 - Type 2 diabetes mellitus with hyperglycemia Medications: New blood sugar diagnostic (FreeStyle Test strips) Test once a day 100 ea 3RF E11.65 - Type 2 diabetes mellitus with hyperglycemia semaglutide (Ozempic) 0.25 mg (0.368 mL) subcut QWEEK 4.784 mL 1RF 90 days E11.65 - Type 2 diabetes mellitus with hyperglycemia lancets (FreeStyle Lancets) Once a day 100 ea 3RF E11.65 - Type 2 diabetes mellitus with hyperglycemia
--- OUTSIDE RECORDS SUMMARY | 2024-11-22 12:03 | XMS_ITS | Patient Health Record ---
[facility] Organization [facility] Address [address] [place] [address] Care Team Providers Care Screed Operator Name Role Phone Carmen Peters Primary Care Provider Unavailabl e Black, Zulma Unavailable [phone] Allergies Allergen (clinical drug ingredient) Drug/Non Drug Allergy documented on EMR Reaction Allergy Type Onset Date Status oxymetazoline Nasal Unknown Drug Allergy Act millie Reason For Referral No Information Medications Medication SIG (Take, Route, Frequency, Duration) Notes Start Date End Date Status Furosemide 40 MG 1 tablet Orally Once a day Active Ammonium Lactate 12 % 1 application Externally to feet except for between the toes Twice a day for 30 days Not-Taking Escitalopram Oxalate 10 MG 1 tablet Orally Once a day Active Aspirin 81 MG 1 tablet Orally Once a day for 30 day(s) Not-Taking Levothroid Active Ipratropium [place] 0.03 % 2 sprays in each nostril Nasally Twice a day Active eliquis 5 mg 02/05/2022 Active Multi Vitamin - 1 tablet Orally Once a day Active Amoxicillin 100 mg for 1 month Not-Taking Bethanechol Chloride 50 MG 1 tablet 1 hour before or 2 hours after meals Orally Three times a day Active Pioglitazone HCl 15 MG 1 tablet Orally Once a day for 30 day(s) Not-Taking Tamsulosin HCl 0.4 MG 1 capsule Orally Once a day Active Losartan Potassium 50 MG 1 tablet Orally Once a day for 30 day(s) Not-Taking Pregabalin 50 MG 1 capsule Orally Once a day Active Metoprolol Succinate 100 MG 1 capsule Orally Once a day for 30 day(s) Active glipiZIDE 5 MG 1 tablet 30 minutes before breakfast Orally Once a day for 30 day(s) 1 AM, 1 PM Active Levothyroxine Sodium 100 MCG 1 tablet in the morning on an empty stomach Orally Once a day Active Atorvastatin Calcium 40 MG as directed [...] Polyneuropathy due to type 2 diabetes mellitus (163410493) Type 2 diabetes mellitus with diabetic polyneuropathy (E11.42) Active confirmed Problem Acquired hammer toe of right foot (3766507617335018 ) Other hammer toe(s) (acquired), right foot (M20.41) Active confirmed Problem Acquired hammer toe of left foot (6599577389943315 ) Other hammer toe(s) (acquired), left foot (M20.42) Active confirmed Problem Peripheral sensory neuropathy (207653253) Neuropathy (G62.9) Active confirmed Problem Mononeuropathy of lower limb (066415973) Neuritis of left foot (G57.92) Active confirmed Problem Acquired deformity of right foot (1017555257916773 0) PlantarFlexion of metatarsal of right foot (M21.6X1) Active confirmed Problem Skin sensation disturbance (68959269) Tingling in extremities (R20.2) Active confirmed Problem Essential hypertension (57060646) Essential hypertension (I10) Active confirmed Vital Signs Blood pressure diastolic 65 mm Hg 11/02/2024 Height 5 ft 5 in in 11/02/2024 Blood pressure systolic 170 mm Hg 11/02/2024 Weight 185 lbs 11/02/2024 BMI 30.78 kg/m2 11/02/2024 Procedures Procedure Date Ordered Date Performed Result Body Sit e 54769-EEJHVMW NAIL, 6 OR MORE 01/24/2024 N/A 19315-TDNS SKIN LESIONS, 2 TO 4 01/24/2024 N/A 16239-HUCISLG NAIL, 6 OR MORE 05/01/2024 N/A 20539-FOQG SKIN LESIONS, 2 TO 4 05/01/2024 N/A 34141-KHPZYMI NAIL, 6 OR MORE 08/08/2024 N/A 85284-Bltgsckw Plate 08/08/2024 N/A 69919-XGIT SKIN LESIONS, 2 TO 4 08/08/2024 N/A 19126-JXKKIUK NAIL, 6 OR MORE 11/02/2024 N/A 02100-OGQA SKIN LESIONS, 2 TO 4 11/02/2024 N/A Encounters Encounter Location Date Provider Diagnosis [address] [address] 01/24/2024 Zulma Black Type 2 diabetes mellitus with diabetic polyneuropathy E11.42 ; Neuralgia and neuritis, unspecified M79.2 ; Tinea unguium B35.1 ; Pain in left foot M79.672 ; Neuropathy G62.9 and Tingling in extremities R20.[address] [address] 05/01/2024 Zulma Black Neuralgia and neuritis, unspecified M79.2 ; Xerosis of skin L85.3 ; Type 2 diabetes mellitus with diabetic polyneuropathy E11.42 ; Tinea unguium B35.1 ; Pain in left foot M79.672 ; Neuropathy G62.9 and Tingling in extremities R20.[address] [address] 08/08/2024 Zulma Black Neuralgia and neuritis, unspecified M79.2 ; Xerosis of skin L85.3 ; Type 2 diabetes mellitus with diabetic polyneuropathy E11.42 ; Tinea unguium B35.1 ; Neuropathy G62.9 ; Tingling in extremities R20.2 and Ingrown nail L60.[address] [place] [address] 11/02/2024 Zulma Black Type 2 diabetes mellitus with diabetic polyneuropathy E11.42 and Tinea unguium B35.1 Assessments Encounter Date Diagnosis (ICD Code) Assessment [...] 08/08/2024 Xerosis of skin (ICD-10 - L85.3) 11/02/2024 Tinea unguium (ICD-10 - B35.1) 11/02/2024 Type 2 diabetes mellitus with diabetic polyneuropathy (ICD-10 - E11.42) 08/08/2024 Type 2 diabetes mellitus with diabetic [...] Treatment Pending Test Test Name Order Date 38632-UUYZYYI NAIL, 6 OR MORE 02/17/2021 83759-XPELANR NAIL, 6 OR MORE 05/29/2021 60965-WVDRTOZ NAIL, 6 OR MORE 09/08/2021 87413-HSGJTCI NAIL, 6 OR MORE 02/05/2022 59720-KKSYNDZ NAIL, 6 OR MORE 05/07/2022 78514-LMXKFTM NAIL, 6 OR MORE 09/10/2022 69503-IWHGQHP NAIL, 6 OR MORE 12/17/2022 36329-MRHKQYD NAIL, 6 OR MORE 03/29/2023 94031-OBYEQJB NAIL, 6 OR MORE 06/28/2023 32994-DOPJVGX NAIL, 6 OR MORE 10/11/2023 50561-MGXIMSS NAIL, 6 OR MORE 01/24/2024 90657-NZZUNKJ NAIL, 6 OR MORE 05/01/2024 73047-LHMDPKJ NAIL, 6 OR MORE 08/08/2024 75022-TFVEBMX NAIL, 6 OR MORE 11/02/2024 84721-Kokz Destruction, 1-14 05/29/2021 48619-Uxbdmjvm Plate 09/08/2021 55370-Zbgdyxol Plate 08/08/2024 92029-Vdzfitrs Plate 02/05/2022 35367-Gzyrsssk Plate 03/29/2023 56754-Wijufikg Plate Each Additional 56506-LPFP SKIN LESIONS, 2 TO 4 05/07/20 88263-JHGM SKIN LESIONS, 2 TO 4 12/18/19 00539-KAYV SKIN LESIONS, 2 TO 4 09/10/19 23 59278-OGDH SKIN LESIONS, 2 TO 4 02/18/20 59447-BKND SKIN LESIONS, 2 TO 4 05/29/20 28185-NYPG SKIN LESIONS, 2 TO 4 02/06/20 22 16701-HFAI SKIN LESIONS, 2 TO 4 09/08/19 22 92210-OQLI SKIN LESIONS, 2 TO 4 03/29/20 50894-EJKK SKIN LESIONS, 2 TO 4 10/11/19 24 11976-RRPB SKIN LESIONS, 2 TO 4 06/28/20 88700-ISOL SKIN LESIONS, 2 TO 4 08/08/20 47886-KCJV SKIN LESIONS, 2 TO 4 05/01/20 12602-JTFN SKIN LESIONS, 2 TO 4 01/24/20 18266-WOFR SKIN LESIONS, 2 TO 4 11/03/19 70778-Pbwl. Subungual Hematoma 3 95430,M3267-CJE TENDON SHEATH/LIGAMENT 1 Next Appt Details Provider Name:Zulma Toro , 02/12/2025 02:30:00 PM, [address] [place], [address], Insurance Providers Payer Name Payer Address Payer Phone Subscriber Number Group Number Insured Name Patient Relationship to Insured Coverage Start Date Coverage End Date [employer] [place] [employer] [address] [place] [address] [phone] [id number] Augustus Reeder Self - patient is the insured Medical (General) History Medical History History ICD Code Cancer Hypertension High Cholesterol Arthritis Back,Hip,and Knee pain Cataracts Diabetic Stomach ulcer Chicken pox Transfusions Rosacea A-Fib Shingles Surgical History Surgery Date(Month/Year) 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
--- OUTSIDE RECORDS SUMMARY | 2024-11-22 12:04 | XMS_ITS ---
Author Organization [facility] Address [address] [place] [address] Care Team Providers Care Rehabilitation Services Manager Name Role Phone Carmen Peters Primary Care Provider Unavailabl e Black, Zulma Unavailable [phone] Allergies Allergen (clinical drug ingredient) Drug/Non Drug Allergy documented on EMR Reaction Allergy Type Onset Date Status oxymetazoline Nasal Unknown Drug Allergy Act millie REASON FOR VISIT At Risk Footcare Medications Medication SIG (Take, Route, Frequency, Duration) Notes Start Date End Date Status Ammonium Lactate 12 % 1 application Externally to feet except for between the toes Twice a day for 30 days Not-Taking Aspirin 81 MG 1 tablet Orally Once a day for 30 day(s) Not-Taking Amoxicillin 100 mg for 1 month Not-Taking Pioglitazone HCl 15 MG 1 tablet Orally Once a day for 30 day(s) Not-Taking Losartan Potassium 50 MG 1 tablet Orally Once a day for 30 day(s) Not-Taking eliquis 5 mg 02/05/2022 Active Pregabalin 50 MG 1 capsule Orally Once a day Active Metoprolol Succinate 100 MG 1 capsule Orally Once a day for 30 day(s) Active glipiZIDE 5 MG 1 tablet 30 minutes before breakfast Orally Once a day for 30 day(s) 1 AM, 1 PM Active Atorvastatin Calcium 40 MG as directed Orally Active Furosemide 40 MG 1 tablet Orally Once a day Active Escitalopram Oxalate 10 MG 1 tablet Orally Once a day Active Levothroid Active Bethanechol Chloride 50 MG 1 tablet 1 hour before or 2 hours after meals Orally Three times a day Active Tamsulosin HCl 0.4 MG 1 capsule Orally Once a day Active Ipratropium [place] 0.03 % 2 sprays in each nostril Nasally Twice a day Active Multi Vitamin - 1 tablet Orally Once a day Active Levothyroxine Sodium 100 MCG 1 tablet in the morning on an empty stomach Orally Once a day Active Social History Tobacco Use: Social History Observation Description Date Details (start date - stop date) Never Smoker NA - NA Tobacco Use/Smoking Question Answer Notes Are you a: nonsmoker Additional Findings: Tobacco Non-User Current no n-smoker Tobacco use other than smoking: Question Answer Notes Are you an other tobacco user? No Vital Signs Height 5 ft 5 in in 11/02/2024 Weight 185 lbs 11/02/2024 BMI 30.78 kg/m2 11/02/2024 Blood pressure systolic 170 mm Hg 11/03/19 Blood pressure diastolic 65 mm Hg 025 Procedures Procedure Date Ordered Date Performed Result Body Sit e 32048-JQIFCLM NAIL, 6 OR MORE 11/02/2024 N/A 50762-RPJS SKIN LESIONS, 2 TO 4 11/02/2024 N/A Encounters Encounter Location Date Provider Diagnosis [facility] [address] [address] 11/02/2024 Zulma Toro Type 2 diabetes mellitus with diabetic polyneuropathy E11.42 and Tinea unguium B35.1 Assessments Encounter Date Diagnosis (ICD Code) Assessment Notes Treatment Notes Treatment Clinical Notes Section Notes 11/02/2024 Type 2 diabetes mellitus with diabetic polyneuropathy (ICD-10 - E11.42) 11/02/2024 Tinea unguium (ICD-10 - B35.1) Plan Of Treatment Pending Test Test Name Order Date 31057-JJFXCBQ NAIL, 6 OR MORE 11/02/2024 36637-BQMF SKIN LESIONS, 2 TO 4 11/03/19 25 Next Appt Details Follow Up: prn, Reason: Provider Name:Zulma Toro , 02/12/2025 02:30:00 PM, [address] [place] [address], [phone], Procedure Notes * Category Sub-Category Detail Notes Debride Nail 6-10 Nail debridement Due to the cl inical pathology outlined in the exam findings, performance of this nail treatment is medically necessary as its management by an unskilled/untrained nonprofessional would put this patients foot and overall health at risk. Therefore, debridement to affected nail(s), as described in exam ( TA,T1 T2 T3 T4 T9 T7 ), was performed exclusively by the physician of record to reduce/remove overall nail length, girth, thickness, subungual debris, and necrotic tissue, by manual and/or electrical means through the use of a nail nipper and/or dremel-type cutter grinder, to a more viable healthy nail [...] to maintain effectiveness in symptomatic relief - 95132 Keratoma Treatment Parring or Cutting o f [...] instrumentation by the physician of record - 18184 Progress Notes * Augustus GOMES FDOB:[birth year] (78 yo M)Acc No.[id number]:11/02/2024 Progress Note Patient:?Augustus GOMES Provider:?Zulma Toro DPM :1945???Age:78 Y???Sex:Male Stiven e:11/02/2024 Address:[address] [place], [place] [address] Pcp:Carmen Peters Subjective: * Chief Complaints: * ???At Risk Footcare * HPI: ???At Risk footcare:?Pt States Last PCP Visit:?Date?08/31/2024 * ROS:?General/Constitutional:?Nausea?denies.?Vomiting?denies.?Hunger Thirst?denies.?Loss appetite?denies.?Chills?denies.?Fatigue?denies.?Fever?denies.?Night Sweats?denies.?Unexplained weight loss?denies.?Unexplained [...] 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 ?Marital status: . 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 * Medications:?TakingLevothyro xine Sodium 100 MCG Tablet 1 tablet in the morning on an empty stomach Orally Once a day Ipratropium [place] 0.03 % Solution 2 sprays in each [...] directed Orally eliquis 5 mg Tablet Taking Levothyroxine Sodium 100 MCG Tablet 1 tablet in the morning on an empty stomach Orally Once a day Taking Ipratropium [place] 0.03 % Solution 2 sprays in each [...] for between the toes Twice a day Not-Taking/PRN Aspirin 81 MG Tablet Chewable 1 tablet Orally Once a day Medication List reviewed and reconciled with the patient * Allergies:?Nasalyes[Allergie s Verified] Objective: * Vitals:?Ht: 5 ft 5 in, Wt: 1 85, BMI: 30.78, Shoe size: 9, BP: 170/65 mm Hg, BS: 190, Wt-k.92 kg. * Examination: ???Ophthalmology Referral: ?DIABETES EYE EXAM?Procedure Performed:?Yes ?Date of Exam Performed?08/09/2024 ?Findings of Diabetic Eye Exam:?no retinopathy?General Examination: ?GENERAL APPEARANCE:?Reveals a pleasant, alert, well nourished, well- developed, well hydrated individual, who demonstrates proper attention to hygiene/body habitus, and is in no acute distress, Pt serves as own historian for office visit today.?ORIENTED:?person, place, and time.?Neurological: ?SENSORY:? Neurological exam demonstrates, reduced light touch sensation, reduced sharp/dull pin prick discrimination, B/L, reduced vibration sensation, 5.07 monofilament test performed at plantar aspects of 5 varied sites per foot shows sensation, reduced, B/L, Pt relates, stinging, anesthesia, B/L with tingling sensations at nighttime.?Vascular: ?DP PULSES (B):?2/4, B/L.?PT PULSES (B):?1/4, B/L.?CAPILLARY FILL TIME:?immediate, all digits, B/L.?TROPHIC CONDITION-TEXTURE/ELASTICITY/TURGOR/HAIR GROWTH (B):?normal, B/L.?TEMPERTURE GRADIENT (C):?normal, warm to cool, proximal to distal, B/L, B/L.?PIGMENTATION:?normal, B/L.?Dermatologic: ?SKIN FINDINGS:?, Skin exam reveals keratotic lesion(s) located at , Plantar Heel(s), B/L.?Nails: ?NAILS are:?Elongated, overgrown, dystrophic, lytic, greater than 3mm thick, discolored and friable with crumbly malodorous subungual debris, with dull to no pain on palpation due to neuropathy, TA, T1 T2 T3 T4 T9 T7 ,.? Assessment: * Assessment: 1.?Tinea unguium - B35.1???2 .?Type 2 diabetes mellitus with diabetic polyneuropathy - E11.42 (Primary)??? Plan: * Treatment: 2.?Tinea unguium?Procedure: 43468-DVKDPUL NAIL, 6 OR MORE * Procedures:?Debride Nail 6-10:?Nail debridement?Due to the clinical pathology outlined in the exam findings, performance of this nail treatment is medically necessary as its management by an unskilled/untrained nonprofessional would put this patients foot and overall health at risk. Therefore, debridement to affected nail(s), as described in exam ( TA,T1 T2 T3 T4 T9 T7 ), was performed exclusively by the physician of record to reduce/remove overall nail length, girth, thickness, subungual debris, and necrotic tissue, by manual and/or electrical means through the use of a nail nipper and/or dremel- type cutter grinder, to a more viable healthy nail [...] to maintain effectiveness in symptomatic relief - 44487.?Keratoma Treatment:?Parring or Cutting of Benign Hyperkeratotic Lesion(s)?(-56) [...] instrumentation by the physician of record - 89472.? * Procedure Codes:?17580 DEBRI DE NAIL, 6 OR MORE, Modifiers: XS 22675 TRIM SKIN LESIONS, 2 TO 4, Modifiers: XS * Preventive Medicine:? ??Screening/Special Tests:?Fall Risk?Screening:?No falls in the past year ?FALLS: Screening for Future Fall Risk?Have you had any falls with injury in the past year??No * Follow Up:?prn * Images: * Sign off status: Completed true * Provider:?Zulma Toro DPM Date:?2024 Generated for Sarah Beth pollack/Loraine/Jesus on:?11/22/2024 12:03 PM EDT History and Physical Notes * HPI (History of Present Illness) Category Sub-Category Detail Notes Category Not es At Risk footcare Pt States Last PCP Visit: Date: Examination Category Sub-Category Detail Notes Category Not es Ingrown Nail INSPECTION: Neuroma Pain PALPATION: Neurological SENSORY: Neurological exa m demonstrates, reduced light touch sensation, reduced sharp/dull pin prick discrimination, B/L, reduced vibration sensation, 5.07 monofilament test performed at plantar aspects of 5 varied sites per foot shows sensation, reduced, B/L, Pt relates, stinging, anesthesia, B/L with tingling sensations at nighttime Dermatologic SKIN FINDINGS: , Skin exam reve als keratotic lesion(s) located at , Plantar Heel(s), B/L General Examination GENERAL APPEARANCE: Reveals a pleasant, alert, well nourished, well-developed, well hydrated individual, who demonstrates proper attention to hygiene/body habitus, and is in no acute distress, Pt serves as own historian for office visit today ORIENTED: person, place, and t sagrario Ophthalmology Referral DIABETES EYE EXAM Procedure Perform ed:: Yes ?Date of Exam Performed: 08/09/2024 Findings of Diabetic Eye Exam:: no retin [...] no pain on palpation due to neuropathy, TA, T1 T2 T3 T4 T9 T7 ,
--- OUTSIDE RECORDS SUMMARY | 2024-11-22 12:04 | XMS_ITS | Data Portability ---
Author Organization [place] [facility], Allergy Address [address] [address] Care Team Providers Care Receiving Clerk Name Role Phone CARLA MONCADA Primary Care Provider [phone] Assessment No assessment recorded. Plan of Treatment Reminders Order Date Submit Date Provider Last Modified By Organization Details Last Modified Time Details Appointments None recorded. Lab None recorded. Referral None recorded. Procedures None recorded. Surgeries None recorded. Imaging None recorded. Medication Orders ipratropium bromide 21 mcg (0.03 %) nasal spray 2023 024 [facility], [address] [place] [address], [facility] [address], [place], [place], [id number], 4 10:26:51 Patient TargetsNo targets recorded. Patient InstructionsNo instructions recorded. Reason for Referral None Reported. Problems Name Problem SNOMED Code Status Onset Date Resolution Date Notes Provider Name and Address Organization Details Recorded Time [facility] ce of salivary secretion 52932080 Active 2021 [facility] camille of salivary secretion ; Note: Date Diagnosed : 2 4:44 PM (K11.7) Not Available [facility] 4 03:11:05 Chronic rhinitis 97009798 Active 2021 Chronic rhinitis; Note: Date Diagnosed : 2 4:44 PM (J31.0) Not Available [facility] 4 03:11:06 Feeling of lump in throat 901830047 Active 2023 DOUGLAS NARANJO MD [address] [facility] 100, [facility] [place], [address] , [facility] - [facility] [place] 4 10:19:36 Posterior rhinorrhe a 28957537 Active 2023 DOUGLAS NARANJO MD 100 [facility],[place] [address], [facility] [place], [address] , [facility] - [facility] 4 10:19:44 Ptosis of left upper eyelid 54183338788 9107 Active 2023 DOUGLAS NARANJO MD [address] [facility],[place] [address], [facility] [place], [address] , [facility] - [facility] 4 10:29:43 Allergic rhinitis 82634864 Active 2023 Silke márquez, [place] - [facility] [place] 4 13:36:28 Problem Notes None recorded. Procedures Surgical History Date Name Laterality Status Provider Name and Address Organization Details Recorded Time 06/30/20 24 Fiberoptic Laryngoscopy (Comprehensive) completed DOUGLAS OLVERA MD [address] [facility],[place] [address], [place], [address], [facility] - [facility] 06/30/2024 10:25:51 proximal subtotal gastrectomy by abdominal approach completed Harrison Garcia [place] - [facility] 06/30/2024 10:25:00 Imaging Results None recorded. Procedure Notes None recorded. Medical Equipment None Reported. Medications Name Sig Start Date Stop Date Status Note LastModified by Organization Details LastModified Time losartan 50 mg tablet active Medicati on ID: 484880 B rand Name: losartan Send Method: E-Prescr [...] 10 mg tablet active Medicati on ID: 806479 B rand Name: amlodipi ne Send Method: E-Prescr ibed Sub s Allowed: subs OK Medic ationGen ericName : amlodipi ne Not Available Not Available Not Available cephalexi n 500 mg capsule TAKE 1 CAPSULE BY MOUTH EVERY 6 HOURS FOR 7 DAYS 06/30 completed Not Available Not Available Not Available furosemid e 20 mg tablet active Medicati on ID: [id number] B rand Name: furosemi de Send Method: [...] Updated DateTime 06/30/2024 165.1 cm 29.5 kg/m2 26316.85 g Harrison Garcia [place] - [facility] 06/30/2024 09:57:49 Social History None recorded. Functional Status None recorded. Mental Status None recorded. Family History Nothing Reported. 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 I do not see any pooling of secretions that would suggest significan t obstructio n requiring any interventi on. Posterior rhinorrhea 647 78869 R09.82 Ptosis of left upper eyelid 0918605285 24710 H02.402 Health Concerns Section Related Observation LastModified by Organization Detai ls LastModified Time None Recorded Concern Status LastModified by Organization Details LastModified Time None Recorded Advance Directives Directive None Recorded Payers Encounter Date Sequence Insurance Name Policy Number Policy Wallace Covered Member ID Wallace Member ID Guarantor Name 06/30/2024 1 [facility] [id number] Augustus Reeder [id number] Henrydonald Oswaldra Notes Date Note Type Note Provider Name and Address Organization Details Recorded Time 4 text/htm l Last seen in 2021. Has chronic clear nasal d/c and PND. Frequently clearing his throat Using decongestant sprays intermittentlyPreviously given AtroventHx of cricopharyngeal spasm DOUGLAS OLVERA MD [address] [place] [address], [phone], [facility] - [facility] 06/30/2024 10:31:33
--- OUTSIDE RECORDS SUMMARY | 2024-11-22 12:04 | XMS_ITS ---
Author Organization [facility] Address [address] [place] [address] Care Team Providers Care Half Backer Name Role Phone FranChanasebastien Primary Care Provider Unavailabl e Black, Zulma Unavailable [phone] Allergies Allergen (clinical drug ingredient) Drug/Non Drug [...] a day for 30 day(s) Not-Taking Ipratropium [place] 0.03 % 2 sprays in each nostril [...] W/U Status Risk Notes Problem Essential hypertension (47639665) Essential hypertension (I10) Active confirmed Vital Signs Height 5 ft 5 in in 08/08/2024 Weight 185 lbs 08/08/2024 BMI 30.78 kg/m2 08/08/2024 Blood pressure systolic 175 mm Hg 08/08/20 24 Blood pressure diastolic 66 mm Hg 024 Procedures Procedure Date Ordered Date Performed Result Body Sit e 26607-KRVGCUQ NAIL, 6 OR MORE 08/08/2024 N/A 02266-Pgynaokb Plate 08/08/2024 N/A 34262-SZPT SKIN LESIONS, 2 TO 4 08/08/2024 N/A Encounters Encounter Location Date Provider Diagnosis [facility] [place] [address] [place] [address] 08/08/2024 Zulma Black Neuralgia and neuritis, unspecified [...] Treatment Pending Test Test Name Order Date 79300-CGDYNZO NAIL, 6 OR MORE 08/08/2024 03844-Dvtlulxf Plate 08/08/2024 06547-TGSQ SKIN LESIONS, 2 TO 4 08/08/20 24 Next Appt Details Follow Up: 2 Weeks, Reason: Provider Name:Zulma Toro , 02/12/2025 02:30:00 PM, [address] [place], [address], Procedure Notes * Category Sub-Category Detail Notes [...] Motrin was recommended for pain or discomfort (90841), DIABETES: Matricectomy deferred at this time due [...] use of a nail nipper and/or dremel-type cinnamon grinder, to a more viable healthy nail [...] to maintain effectiveness in symptomatic relief - 25531 Keratoma Treatment Parring or Cutting o f [...] instrumentation by the physician of record - 50784 Progress Notes * ELISEO Henrydonald FDOB:[birth year] (78 yo M)Acc No.[id number]:08/08/2024 Progress Note Patient:?Augustus GOMES Provider:?Zulma Toro DPM :1945???Age:78 Y???Sex:Male Stiven e:08/08/2024 Address:[address] [place], [place] [phone] Pcp:Carmen Peters Subjective: * Chief Complaints: * [...] lymphoma) 2006rotator cuff * Hospitalization/Major Diagno stic Procedure:?[facility]- [place] 03/23/24 * Family History:?Mother: dece [...] yes, fishing. ?Marital status: . 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 * Medications:?TakingIpratropi um [place] 0.03 % Solution 2 sprays in each [...] Orally eliquis 5 mg Tablet Taking Ipratropium [place] 0.03 % Solution 2 sprays in each [...] - L60.0??? Plan: * Treatment: 2.?Tinea unguium?Procedure: 95320-GYQIGIR NAIL, 6 OR MORE 3.?Ingrown nail?Procedure: 48736-Lbseeilf Plate * Procedures:?Debride Nail 6-10:?Nail debridement?Due to [...] of a nail nipper and/or dremel- type cinnamon grinder, to a more viable healthy nail [...] to maintain effectiveness in symptomatic relief - 03307.?Keratoma Treatment:?Parring or Cutting of Benign Hyperkeratotic Lesion(s)?(-56) [...] instrumentation by the physician of record - 87129.?Nail Avulsion:?Location?Bilateral nail border,TA, .?Anesthesia?was deferred - NEUROPATHY: [...] Motrin was recommended for pain or discomfort (51926), DIABETES: Matricectomy deferred at this time due to diabetes risk.? * Procedure Codes:?42961 Avuls [place], [place]: [place] [address] DEBRIDE NAIL, 6 OR MORE, Modifiers: XS 09598 TRIM SKIN LESIONS, 2 TO 4, Modifiers: [...] DPM Date:?2023 Generated for Sarah Beth pollack/Loraine/Jesus on:?11/22/2024 12:04 PM EDT History and Physical Notes * [...]
--- OUTSIDE RECORDS SUMMARY | 2024-11-22 12:04 | XMS_ITS ---
Author Organization [facility] Address [address] [place] [address] Care Team Providers Care Dray Truck Driver Name Role Phone Carmen Peters Primary Care Provider UnavailZulma Dey [phone] Faust Encounters Encounter Location Date Provider Diagnosis [address] [address] 08/14/2024 Zulma Toro Plan Of Treatment Next Appt Details Provider Name:Zulma Toro , 02/12/2025 02:30:00 PM, [address] [place] [address], [phone], Progress Notes * ELISEOAugustus FDOB:[birth year] (79 yo M)Acc No.[id number]:08/14/2024 Progress Note Patient:?Augustus GOMES Provider:?Zulma Toro DPM :1945???Age:78 Y???Sex:Male Stiven e:08/14/2024 Address:[address] [place] [id number] Pcp:Carmen Peters Subjective: * Chief Complaints: * [...] Date:?2024 Generated for Sarah Beth pollack/Loraine/Jesus on:?11/22/2024 12:04 PM EDT
== END 2024-11-22 11:42 | disposition home or self-care (01) ==
LOC: HO.HMCH 10:21
PROVIDERS: PCP Internal Medicine; Visit Provider Internal Medicine
DX: Z00.00 Encounter for general adult medical examination without abnormal findings (principal); J84.9 Interstitial pulmonary disease, unspecified; E11.65 Type 2 diabetes mellitus with hyperglycemia; I48.0 Paroxysmal atrial fibrillation; I50.32 Chronic diastolic (congestive) heart failure; I25.10 Atherosclerotic heart disease of native coronary artery without angina pectoris; E03.9 Hypothyroidism, unspecified; D50.9 Iron deficiency anemia, unspecified; I10 Essential (primary) hypertension; E78.00 Pure hypercholesterolemia, unspecified

== ENCOUNTER → 2024-11-22 10:20 | Outpatient (BNVA) | payer MEDICARE, SELFPAY | PROVIDERS: PCP Internal Medicine; Visit Provider Internal Medicine | DX: Z00.00 Encounter for general adult medical examination without abnormal findings (principal); I25.10 Atherosclerotic heart disease of native coronary artery without angina pectoris; J84.9 Interstitial pulmonary disease, unspecified; D50.9 Iron deficiency anemia, unspecified; I48.0 Paroxysmal atrial fibrillation; E11.65 Type 2 diabetes mellitus with hyperglycemia; E03.9 Hypothyroidism, unspecified; I11.0 Hypertensive heart disease with heart failure; I50.32 Chronic diastolic (congestive) heart failure; E78.00 Pure hypercholesterolemia, unspecified; Z79.01 Long term (current) use of anticoagulants; Z79.899 Other long term (current) drug therapy | CPT/HCPCS: 83036; 96127; 99397 ==

== ENCOUNTER 2025-01-11 09:31 | Outpatient (AMB) | payer MEDICARE, SELFPAY ==
--- NOTE | 2025-01-11 09:45 | MHC.OFFVIS ---
Vital Signs 01/11/25 09:46 Height 5 ft 5 in Weight 180 lb 12.465 oz BMI 30.1 BP 120/62 Blood Pressure Location Lt brachial Position Sitting Pulse 86 Pulse Source Pulse Oximeter Pulse Oximetry (%) 96 Oxygen Delivery Method Room Air Intake Visit Reasons: LARISSA/Restrictive Lung Disease Intake Note: pt is here for follow up and states he is feeling good. Bpm Developer Required: No Allergies amiodarone Adverse Reaction (Intermediate, Unverified 01/11/25 10:07) ILD amlodipine Adverse Reaction (Intermediate, Verified 01/11/25 10:07) leg swelling gabapentin Adverse Reaction (Intermediate, Verified 01/11/25 10:07) lethargy lisinopril Adverse Reaction (Intermediate, Verified 01/11/25 10:07) Cough metformin Adverse Reaction (Intermediate, Verified 01/11/25 10:07) lethargy Medication List - Last Reconciled 01/11/25 by Caitlin Mcduffie MD acetaminophen (Tylenol) 650 mg PO Q4H PRN albuterol sulfate 90 mcg/actuation 2 puffs inhalation Q4-6H PRN 60 days apixaban (Eliquis) 5 mg PO BID ascorbic acid (vitamin C) 250 mg PO DAILY atorvastatin 80 mg PO DAILY 90 days bethanechol chloride 50 mg PO BID 30 days blood sugar diagnostic (FreeStyle Test strips) Test once a day cholecalciferol (vitamin D3) (Vitamin D3) 25 mcg PO DAILY escitalopram oxalate 10 mg PO DAILY ferrous sulfate 325 mg PO DAILY furosemide 40 mg PO DAILY glipizide ER 5 mg PO DAILY lancets (FreeStyle Lancets) Once a day levothyroxine 100 mcg PO DAILY@1100 90 days metoprolol succinate ER 100 mg PO DAILY 90 days metronidazole 1% (Metrogel) 1 appl topical BEDTIME multivitamin 1 tab PO DAILY nystatin 1 appl See Protocol topical TID 7 days pregabalin 50 mg PO BID semaglutide (Ozempic) 0.25 mg (0.368 mL) subcut QWEEK 30 days tamsulosin 0.4 mg PO BEDTIME 90 days walker (Ultra-Light Rollator misc) As directed Do you need a note to return to daycare/school/sports/work: No HPI HPI LARISSA/Restrictive Lung Disease: Details: 79 years old very pleasant gentleman is here for follow-up. Breathing has been very stable without any. Acute exacerbation He uses albuterol 1 or 2 puffs Q 6 hours only p.r.n., and that is maybe once or twice a week. He claims that his breathing is better. He is not having any edema of the feet. Denies any cough or wheezing. [facility] Medical History Interstitial lung disease Shingles CHF (congestive heart failure) Preop exam for internal medicine Bilateral pleural effusion Pneumonia Physical deconditioning CKD (chronic kidney disease) stage 3, GFR 30-59 ml/min (HFpEF) heart failure with preserved ejection fraction Obesity (BMI 30-39.9) LARISSA (obstructive sleep apnea) PAF (paroxysmal atrial fibrillation) Type 2 diabetes mellitus with unspecified complications Peptic ulcer disease Non Hodgkin's lymphoma Anxiety and depression Hypercholesterolemia Vitamin D deficiency Obesity (BMI 30-39.9) Type 2 diabetes mellitus with hyperglycemia Thrombocytopenia Surgical History Hx of cataract extraction History of esophagogastroduodenoscopy (EGD) H/O colonoscopy H/O lymph node biopsy History of shoulder surgery Family History Father Lung cancer Mother Breast cancer Sister Breast cancer Brother Substance use disorder Sister No problems noted. Son No problems noted. Daughter No problems noted. Social History Household Members: Spouse and Children Housing: House Are you a primary career development coordinator/teacher to a significant other at home: No Do you presently have visiting nurse or other home services: No Alcohol intake: never Patient Tobacco Use Status: Never used Tobacco Tobacco use type: Cigarette e-Cigarette/Vaping Use: Never Used Second Hand Smoke Exposure: No Advance Directives Date on File: 12/19/21 service: No Current occupational status: retired Cognitive needs: Yes (Walker, cane) Hearing needs: No Vision needs: Yes (Glasses) Review of Systems Const All systems reviewed & are unremarkable except as noted in HPI and below Reports snoring Eyes Reports no additional complaints ENT Reports no additional complaints Card Reports irregular heart rhythm and Reports dyspnea on exertion Resp Denies cough, Reports dyspnea on exertion, Reports snoring and Denies wheezing GI Reports no additional complaints Reports nocturia Musc Reports no additional complaints Skin/Breast Reports system reviewed and no additional complaints, except as documented Neuro Reports no additional complaints Psych Reports no additional complaints Aller/Immun Denies wheezing Physical Exam Vital Signs: Last Vital Signs Pulse 86 01/11/25 09:46 BP 120/62 01/11/25 09:46 Pulse Ox 96 01/11/25 09:46 Oxygen Delivery Method Room Air 01/11/25 09:46 BMI result Body Mass Index 30.1 Has a round face. Narrow oropharynx, Mallampati class 4. Neck size 16-1/2 inch. Const General: comfortable, no acute distress, alert and awake Orientation/consciousness: patient oriented x3 HEENT Head: Yes normal to inspection General nose exam: No nasal polyps present and No nasal discharge present Face and sinus: Yes sinuses nontender Mouth: oropharynx abnormals (Narrow and crowded Mallampati class 4) Throat: Yes posterior oropharynx normal Eyes General: appearance normal, both eyes and all related structures Neck Neck: Yes normal visual inspection, Yes no lymphadenopathy, Yes trachea midline, Yes no JVD and Yes other (Neck circumference 16-1/2 inch) Thyroid: Thyroid normal Chest Chest palpation & inspection: normal inspection of the chest, normal palpation of entire chest wall and no tenderness Resp Other: Percussion note resonant, breath sounds are slightly distant, especially over the basilar areas. No wheezes or rhonchi or crepitations are heard . Cardio Palpation: normal PMI Rate: regular rate Rhythm: regular rhythm Heart sounds: no gallops and no murmurs GI Palpation (GI): Soft to palpation, nontender, No hepatosplenomegaly present, no masses and Other GI palpation findings present (Abdomen is moderately obese and protuberant) Auscultation: normal bowel sounds Back/Spine/Pelvis Thoracic/Lumbar Spine: thoracic and lumbar spine normal to inspection Skin General skin exam: no rashes or lesions noted Neuro General: patient oriented x3 and no focal motor deficits Cranial nerves: Yes CN's II-XII intact bilaterally Extrem General: Yes normal to inspection, Yes no clubbing, cyanosis or edema and Yes no calf tenderness Psych Appearance: grossly normal and well kempt Speech and movement: Normal speech and movement present Assessment & Plan Assessment & Plan (1) Interstitial lung disease: Comment: He has mild interstitial lung disease in the basilar areas, in addition to chronic congestive heart failure. He is doing very well at this time . Denies any significant amount of cough for shortness of breath. Code(s): J84.9 - Interstitial pulmonary disease, unspecified Category: Medical Plan: May use albuterol 2 puffs Q 6 hours only p.r.n.. Continue the diuretic therapy as advised by Cardiology (2) Restrictive lung disease: Comment: PULMONARY FUNCTION TEST SHOWS MODERATELY SEVERE RESTRICTIVE PULMONARY DISORDER, THIS IS BECAUSE OF COMBINATION CONGESTIVE HEART FAILURE AND INTERSTITIAL LUNG DISEASE. Code(s): J98.4 - Other disorders of lung Category: Medical Plan: Continue to do deep breathing exercises 2 to 3 times a day (3) Pleural effusion: Comment: PATIENT HAS HAD MODERATELY LARGE PLEURAL EFFUSION BILATERALLY MOSTLY DUE TO CONGESTIVE HEART FAILURE. NOW THAT HE IS ON DIURETIC THERAPY , THE RESIDUAL EFFUSIONS ARE SMALL IN SIZE. Code(s): J90 - Pleural effusion, not elsewhere classified Category: Medical Plan: Continue diuretic therapy (4) LARISSA (obstructive sleep apnea): Comment: He does have history of obstructive sleep apnea but he is intolerant to the use of CPAP. Claims that he sleeps well in slightly propped up position. Code(s): G47.33 - Obstructive sleep apnea (adult) (pediatric) Category: Medical Plan: No need to use CPAP Coding Level of Care Code Est Pt Level 3 (89582) Diagnoses Interstitial lung disease J84.9 Restrictive lung disease J98.4 Pleural effusion J90 LARISSA (obstructive sleep apnea) G47.33
[2025-01-11 09:46] VITALS: BP 120/62; PULSE 86; O2SAT 96; BMI 30.1
--- OUTSIDE RECORDS SUMMARY | 2025-01-11 10:33 | XMS_ITS | Data Portability ---
Author Organization [place] - [facility], Allergy Address [address] [address] Care Team Providers Care Gallery Or Museum Attendant Name Role Phone CARLA MONCADA Primary Care Provider [phone] Assessment No assessment recorded. Plan of Treatment Reminders Order Date Submit Date Provider Last Modified By Organization Details Last Modified Time Details Appointments None recorded. Lab None recorded. Referral None recorded. Procedures None recorded. Surgeries None recorded. Imaging None recorded. Medication Orders ipratropium bromide 21 mcg (0.03 %) nasal spray 2023 024 GLEN GARDNER [facility], [address] [place] [address], [facility] [address], [place], [place], [phone], 4 10:26:51 Patient TargetsNo targets recorded. Patient InstructionsNo instructions recorded. Reason for Referral None Reported. Problems Name Problem SNOMED Code Status Onset Date Resolution Date Notes Provider Name and Address Organization Details Recorded Time [facility] ce of salivary secretion 46564436 Active 2021 [facility] camille of salivary secretion ; Note: Date Diagnosed : 2 4:44 PM (K11.7) Not Available [facility] 4 03:11:05 Chronic rhinitis 49385743 Active 2021 Chronic rhinitis; Note: Date Diagnosed : 2 4:44 PM (J31.0) Not Available [facility] 4 03:11:06 Feeling of lump in throat 442124945 Active 2023 DOUGLAS NARANJO MD [address] [facility], [facility] [place], [address] , [facility] - [facility] 4 10:19:36 Posterior rhinorrhe a 72672194 Active 2023 DOUGLAS NARANJO MD [address] [facility],[place] [address], [facility] [place], [address] , [facility] - [facility] 4 10:19:44 Ptosis of left upper eyelid 80939104182 9107 Active 2023 DOUGLAS NARANJO MD [address] [facility],[place] [address], [facility] [place], [address] , [facility] - [facility] 4 10:29:43 Allergic rhinitis 31325198 Active 2023 Silke márquez, [place] - [facility] 4 13:36:28 Problem Notes None recorded. Procedures Surgical History Date Name Laterality Status Provider Name and Address Organization Details Recorded Time 06/30/20 24 Fiberoptic Laryngoscopy (Comprehensive) completed DOUGLAS OLVERA MD [address] [facility],[place] [address], [place], [address], [facility] - [facility] 06/30/2024 10:25:51 proximal subtotal gastrectomy by abdominal approach completed Harrison Garcia [place] - [facility] 06/30/2024 10:25:00 Imaging Results None recorded. Procedure Notes None recorded. Medical Equipment None Reported. Medications Name Sig Start Date Stop Date Status Note LastModified by Organization Details LastModified Time losartan 50 mg tablet active Medicati on ID: 769926 B rand Name: losartan Send Method: E-Prescr [...] 10 mg tablet active Medicati on ID: 080837 B rand Name: amlodipi ne Send Method: E-Prescr ibed Sub s Allowed: subs OK Medic ationGen ericName : amlodipi ne Not Available Not Available Not Available cephalexi n 500 mg capsule TAKE 1 CAPSULE BY MOUTH EVERY 6 HOURS FOR 7 DAYS 06/30 completed Not Available Not Available Not Available furosemid e 20 mg tablet active Medicati on ID: 543040 B rand Name: furosemi de Send Method: [...] Updated DateTime 06/30/2024 165.1 cm 29.5 kg/m2 09792.85 g Harrison Garcia [place] - [facility] 06/30/2024 09:57:49 Social History None recorded. Functional Status None recorded. Mental Status None recorded. Family History Nothing Reported. Medical History Condition Response Heart Problems Y Asthma Y Past Encounters Encounter ID Performer Location Encounter Start Date Encounter Closed Date Diagnosis/Indication Diagnosis SNOMED-CT Code Diagnosis ICD10 Code Diagnosis Note [id number] DOUGLAS NARANJO MD [facility] [address] [address] 06/30/2024 09:41:04 06/30/2024 10:32:04 Chronic rhinitis 38445836 J31.0 Patient with chronic nasal drainage, postnasal [...] left ptosis Feeling of lump in throat 003515364 R09.89 We also discussed that some of his symptoms are likely due to his known history of cricophary ngeal spasm. I do not see any pooling of secretions that would suggest significan t obstructio n requiring any interventi on. Posterior rhinorrhea 772 71327 R09.82 Ptosis of left upper eyelid 6463018219 95534 H02.402 Health Concerns Section Related Observation LastModified by Organization Detai ls LastModified Time None Recorded Concern Status LastModified by Organization Details LastModified Time None Recorded Advance Directives Directive None Recorded Payers Insurance Date Sequence Insurance Name Policy Number Policy Wallace Covered Member ID Wallace Member ID Guarantor Name 06/30/2024 1 [facility] [id number] 01 Augustus Reeder [id number] Henrydonald Oswaldra Notes Date Note Type Note Provider Name and Address Organization Details Recorded Time 4 text/htm l Last seen in 2021. Has chronic clear nasal d/c and PND. Frequently clearing his throat Using decongestant sprays intermittentlyPreviously given AtroventHx of cricopharyngeal spasm DOUGLAS OLVERA MD [address] [place] [address], [address], [facility] - [facility] 06/30/2024 10:31:33
== END 2025-01-11 10:09 | disposition home or self-care (01) ==
LOC: HO.HPS 09:32
PROVIDERS: PCP Internal Medicine; Visit Provider Internal Medicine
DX: J84.9 Interstitial pulmonary disease, unspecified (principal); J98.4 Other disorders of lung; J90 Pleural effusion, not elsewhere classified; G47.33 Obstructive sleep apnea (adult) (pediatric)
CPT/HCPCS: 99213

== ENCOUNTER → 2025-01-11 09:31 | Outpatient (BNVA) | payer MEDICARE, SELFPAY | PROVIDERS: PCP Internal Medicine; Visit Provider Internal Medicine | DX: J84.9 Interstitial pulmonary disease, unspecified (principal); J98.4 Other disorders of lung; J90 Pleural effusion, not elsewhere classified; G47.33 Obstructive sleep apnea (adult) (pediatric) | CPT/HCPCS: 99212 ==

== ENCOUNTER 2025-03-01 10:15 | Outpatient (REF) | payer MEDICARE, SELFPAY ==
[2025-03-01 11:01] LABS: MANUAL DIFF FLAG NO
[2025-03-01 11:44] LABS: Hematocrit 42.6 % (42.0-52.0); Hemoglobin 14.1 g/dl (14.0-18.0); Imm Gran Abs Auto 0.03 X10*3/uL (0.00-0.03); Imm Gran Pct Auto 0.5 % (0.0-0.4); Lymphocytes Absolute Auto 1.5 X10*3/uL (1.2-4.9); Mean Corpuscular HGB Conc 33.1 g/dl (31.0-36.0); Mean Corpuscular Hemoglobin 27.4 pg (27.0-33.0); Mean Corpuscular Volume 82.9 fL (80.0-98.0); NRBC Abs Auto 0.000 X10*3/uL (0.0-0.012); NRBC Pct Auto 0.0 /100WBC (0.0-0.2); Platelet Count 125 X10*3/uL (160-400); Red Blood Count 5.14 X10*6/uL (4.60-5.80); Reticulocytes Absolute 0.089 X10*6/uL (0.026-0.095); White Blood Count 6.2 X10*3/uL (4.8-10.8)
[2025-03-01 11:47] LABS: Appearance Urine Clear; Glucose Urine UA Negative (Negative); PH 6.5 (5.0-9.0); Specific Gravity - Urine 1.010 (1.005-1.025)
[2025-03-01 12:09] LABS: Hemoglobin A1C 141.8137 umol/L; Total Hemoglobin (HGBA1C) 3595.1951 umol/L
[2025-03-01 12:13] LABS: Alanine Aminotransferase 41 U/L (0-40); Albumin Level 4.3 g/dL (3.5-5.0); Alkaline Phosphatase 105 U/L (39-117); Anion Gap 12 (12-20); Aspartate Amino Transferase 50 U/L (5-37); Blood Urea Nitrogen 22 mg/dL (9-16); Calcium 9.4 mg/dL (8.4-10.2); Carbon Dioxide 31 mmol/L (22-29); Chloride 100 mmol/L (96-108); Cholesterol 116 mg/dL (<200); Estimated Glomerular Filt Rate 44; HDL Cholesterol 28 mg/dL (>40); Iron 49 mcg/dL (45-160); Percent Iron Saturation 22 % (15-50); Potassium 4.3 mmol/L (3.3-5.1); Sodium 139 mmol/L (135-145); Total Iron Binding Capacity 222 mcg/dL (228-428); Total Protein 7.4 g/dL (6.5-8.0); Triglycerides 214 mg/dL (<150); Unsaturated Iron Binding 173 ug/dL
[2025-03-01 12:32] LABS: Ferritin 275 ng/mL (20-250); Free T4 (Free Thyroxine) 1.18 ng/dL (0.71-1.85); Thyroid Stimulating Hormone 4.18 uIU/mL (0.32-4.0)
[2025-03-01 12:39] LABS: Folate 13.6 ng/mL (> or = 4.0); Vitamin B12 515 pg/mL (200-900)
== END 2025-03-01 10:16 | disposition home or self-care (01) ==
LOC: HO.LAB 10:15
PROVIDERS: Absent Provider Internal Medicine; PCP Internal Medicine; Visit Provider Internal Medicine
DX: I48.0 Paroxysmal atrial fibrillation (principal); I50.32 Chronic diastolic (congestive) heart failure; I25.10 Atherosclerotic heart disease of native coronary artery without angina pectoris; I11.0 Hypertensive heart disease with heart failure; G47.33 Obstructive sleep apnea (adult) (pediatric); J84.9 Interstitial pulmonary disease, unspecified; E11.65 Type 2 diabetes mellitus with hyperglycemia; E78.00 Pure hypercholesterolemia, unspecified; R30.0 Dysuria
CPT/HCPCS: 36415; 80053; 80061; 81003; 82607; 82728; 82746; 83036; 83540; 84439; 84443; 85025; 85045; 99212

== ENCOUNTER 2025-03-01 10:15 | Outpatient (AMB) | payer MEDICARE, SELFPAY ==
--- NOTE | 2025-03-01 10:23 | A.OFFVIS_ITS ---
Vital Signs 03/01/25 10:24 Height 5 ft 5 in Weight 180 lb 12.465 oz BMI 30.1 BP 118/62 Blood Pressure Location Lt brachial Position Sitting Pulse 75 Pulse Source Pulse Oximeter Intake Visit Reasons: 4m follow up Allergies amiodarone Adverse Reaction (Intermediate, Unverified 01/11/25 10:07) ILD amlodipine Adverse Reaction (Intermediate, Verified 01/11/25 10:07) leg swelling gabapentin Adverse Reaction (Intermediate, Verified 01/11/25 10:07) lethargy lisinopril Adverse Reaction (Intermediate, Verified 01/11/25 10:07) Cough metformin Adverse Reaction (Intermediate, Verified 01/11/25 10:07) lethargy Medication List - Last Reconciled 03/01/25 by Brain Su MD acetaminophen (Tylenol) 650 mg PO Q4H PRN albuterol sulfate 90 mcg/actuation 2 puffs inhalation Q4-6H PRN 60 days apixaban (Eliquis) 5 mg PO BID ascorbic acid (vitamin C) 250 mg PO DAILY atorvastatin 80 mg PO DAILY 90 days bethanechol chloride 50 mg PO BID 90 days blood sugar diagnostic (FreeStyle Test strips) Test once a day cholecalciferol (vitamin D3) (Vitamin D3) 25 mcg PO DAILY escitalopram oxalate 10 mg PO DAILY ferrous sulfate 325 mg PO DAILY furosemide 40 mg PO DAILY glipizide ER 5 mg PO DAILY Held on 08/21/24. Instructions: Low A1c lancets (FreeStyle Lancets) Once a day levothyroxine 100 mcg PO DAILY@1100 90 days metoprolol succinate ER 100 mg PO DAILY 90 days metronidazole 1% (Metrogel) 1 appl topical BEDTIME multivitamin 1 tab PO DAILY nystatin 1 appl See Protocol topical TID 7 days pregabalin 50 mg PO BID semaglutide (Ozempic) 0.25 mg (0.368 mL) subcut QWEEK 30 days tamsulosin 0.4 mg PO BEDTIME 90 days walker (Ultra-Light Rollator [facility]) As directed HPI Comments Details: Augustus returns for follow-up regarding atrial fibrillation and congestive heart failure. To recall, in 2022, he was in congestive heart failure suspected to be from atrial fibrillation. He was put on amiodarone and then we planned cardioversion but he went back to normal by himself. He has been maintaining sinus rhythm. He has had issues with shortness of breath in the past and still has the same. Per history, multiple episodes of pneumonia or many years. He has also had COVID 3 times. Overall could be some combination of cardiac and respiratory etiologies. However, has not changed much. There is no active smoking history but there is history of passive smoking from several family members including daughter smoking in the basement. [facility] Medical History Interstitial lung disease Shingles CHF (congestive heart failure) Preop exam for internal medicine Bilateral pleural effusion Pneumonia Physical deconditioning CKD (chronic kidney disease) stage 3, GFR 30-59 ml/min (HFpEF) heart failure with preserved ejection fraction Obesity (BMI 30-39.9) LARISSA (obstructive sleep apnea) PAF (paroxysmal atrial fibrillation) Type 2 diabetes mellitus with unspecified complications Peptic ulcer disease Non Hodgkin's lymphoma Anxiety and depression Hypercholesterolemia Vitamin D deficiency Obesity (BMI 30-39.9) Type 2 diabetes mellitus with hyperglycemia Thrombocytopenia Surgical History Hx of cataract extraction History of esophagogastroduodenoscopy (EGD) H/O colonoscopy H/O lymph node biopsy History of shoulder surgery Family History Father Lung cancer Mother Breast cancer Sister Breast cancer Brother Substance use disorder Sister No problems noted. Son No problems noted. Daughter No problems noted. Social History Household Members: Spouse and Children Housing: House Are you a primary healthcare consultant to a significant other at home: No Do you presently have visiting nurse or other home services: No Alcohol intake: never Patient Tobacco Use Status: Never used Tobacco Tobacco use type: Cigarette e-Cigarette/Vaping Use: Never Used Second Hand Smoke Exposure: No Advance Directives Date on File: 12/19/21 service: No Current occupational status: retired Cognitive needs: Yes (Walker, cane) Hearing needs: No Vision needs: Yes (Glasses) Review of Systems Const Denies weakness ENT Denies dizziness Card Denies chest pain, Denies chest pain with activity, Denies syncope, Denies rapid heart rate, Denies pedal edema, Denies edema, Denies leg edema, Denies lightheadedness, Denies palpitations, Reports dyspnea, Reports dyspnea on exertion and Denies orthopnea Resp Reports cough, Reports dyspnea and Reports dyspnea on exertion GI Denies hematochezia and Denies change in stool character Musc Denies abnormal gait, Denies muscle cramps, Denies muscle weakness, Denies numbness, Denies radiating pain into limb and Denies tingling Neuro Denies abnormal gait, Denies dizziness, Denies syncope, Denies numbness, Denies tingling and Denies weakness Endo Denies palpitations Physical Exam Vital Signs: Last Vital Signs Pulse 75 03/01/25 10:24 BP 118/62 03/01/25 10:24 BMI result Body Mass Index 30.1 Const General: comfortable and no acute distress Orientation/consciousness: patient oriented x3 HEENT Other: Unremarkable Head: Yes normal to inspection Neck Neck: Yes normal visual inspection Chest Chest palpation & inspection: normal inspection of the chest Resp Auscultation: clear to auscultation bilaterally Cardio Palpation: normal PMI Heart sounds: S1 normal heart sound present, S2 normal heart sound present, no gallops, no murmurs and no rubs GI Palpation (GI): Soft to palpation Back/Spine/Pelvis Other: unremarkable Skin General skin exam: no rashes or lesions noted Neuro General: patient oriented x3 Extrem General: Yes normal to inspection Psych Mental Status: mental status grossly normal Assessment & Plan Assessment & Plan (1) PAF (paroxysmal atrial fibrillation): Comment: Cardioversion 12/04/2021 Code(s): I48.0 - Paroxysmal atrial fibrillation Category: Medical Plan: S/p cardioversion in 2021; recurrent atrial fibrillation but resolved with amiodarone. However, because of interstitial lung disease concerns, amiodarone has been stopped. Continue with anticoagulation. Continue metoprolol. (2) Chronic heart failure with preserved ejection fraction (HFpEF): Code(s): I50.32 - Chronic diastolic (congestive) heart failure Category: Medical Plan: Stable. Clinically, appears euvolemic. (3) Atherosclerotic cardiovascular disease: Code(s): I25.10 - Atherosclerotic heart disease of [place] coronary artery without angina pectoris Category: Medical Plan: Chest CT scan reports multivessel coronary artery calcification. Myocardial perfusion imaging study from 2021 with normal perfusion. Clinically, no angina. Continue statins. (4) Essential hypertension: Code(s): I10 - Essential (primary) hypertension Category: Medical Plan: Stable. No changes. (5) LARISSA (obstructive sleep apnea): Comment: He does have history of obstructive sleep apnea but he is intolerant to the use of CPAP. Claims that he sleeps well in slightly propped up position. Code(s): G47.33 - Obstructive sleep apnea (adult) (pediatric) Category: Medical Plan: Unable to use. (6) Interstitial lung disease: Comment: He has mild interstitial lung disease in the basilar areas, in addition to chronic congestive heart failure. He is doing very well at this time . Denies any significant amount of cough for shortness of breath. Code(s): J84.9 - Interstitial pulmonary disease, unspecified Category: Medical Plan: In the CT chest, evidence of interstitial lung disease. Differential diagnosis includes collagen vascular disease, drug reaction, cryptogenic organizing pneumonia, sarcoidosis as mentioned report. Progression compared to 2022. Superimposed CHF. He is already being seen at pulmonary clinic. From the cardiac standpoint, amiodarone has been stopped. There is a risk of recurrent atrial fibrillation. Plan I discussed with the patient the importance of monitoring his heart rate and rhythm, particularly if it remains elevated >100 beats per minute for an extended period. We reviewed the current medication regimen, including Eliquis and Metoprolol, to manage atrial fibrillation and prevent thromboembolic events. We also discussed the impact of secondhand smoke on and the importance of avoiding exposure, especially from family members who smoke at home. The patient was advised to monitor for any worsening respiratory symptoms and to seek medical attention if necessary. Regarding chronic kidney disease, I emphasized the need for regular blood work to assess kidney function and ensure stability. The patient was instructed to continue taking the prescribed diuretic and to report any significant changes in symptoms. For diabetes management, we discussed continuing with Ozempic, with glipizide on hold, and the importance of regular blood glucose monitoring. Patient was informed and verbally consented to the use of an ambient scribe for clinic note documentation during this visit. Patient Instructions: - Monitor heart rate and contact healthcare provider if it remains elevated > 100 bpm for an extended period. - Continue taking Eliquis and Metoprolol as prescribed. - Avoid exposure to secondhand smoke, especially from family members. - Monitor for worsening respiratory symptoms and seek medical attention if necessary. - Attend scheduled blood work to assess kidney function. - Continue taking prescribed diuretic and report any significant changes in symptoms. - Continue with Ozempic for diabetes management and monitor blood glucose levels regularly. Coding Level of Care Code Est Pt Level 4 (10364) Complex EM visit Add On G2211 Diagnoses PAF (paroxysmal atrial fibrillation) I48.0 Chronic heart failure with preserved ejection fraction (HFpEF) I50.32 Atherosclerotic cardiovascular disease I25.10 Essential hypertension I10 LARISSA (obstructive sleep apnea) G47.33 Interstitial lung disease J84.9
[2025-03-01 10:24] VITALS: BP 118/62; PULSE 75; BMI 30.1
--- OUTSIDE RECORDS SUMMARY | 2025-03-01 11:01 | XMS_ITS | Data Portability ---
Author Organization [place] - [facility], Allergy Address [address] [address] Care Team Providers Care Reservation Sales Agent Name Role Phone ANTWANCARLA Primary Care Provider Assessment No assessment recorded. Plan of Treatment Reminders Order Date Submit Date Provider Last Modified By Organization Details Last Modified Time Details Appointments None recorded. Lab None recorded. Referral None recorded. Procedures None recorded. Surgeries None recorded. Imaging None recorded. Medication Orders ipratropium bromide 21 mcg (0.03 %) nasal spray 2023 024 [facility], [address] [place] [address], [id number], 4 10:26:51 Patient TargetsNo targets recorded. Patient InstructionsNo instructions recorded. Reason for Referral None Reported. Problems Name Problem SNOMED Code Status Onset Date Resolution Date Notes Provider Name and Address Organization Details Recorded Time [facility] salivary secretion 84207232 Active 2021 [facility] salivary secretion ; Note: Date Diagnosed : 2 4:44 PM (K11.7) Not Available [facility] 4 03:11:05 Chronic rhinitis 36519176 Active 2021 Chronic rhinitis; Note: Date Diagnosed : 2 4:44 PM (J31.0) Not Available [facility] 4 03:11:06 Feeling of lump in throat 333823690 Active 2023 DOUGLAS NARANJO MD [address] [facility],[place] [address], [place], [phone] , [facility] - [facility] 4 10:19:36 Posterior rhinorrhe a 93356303 Active 2023 DOUGLAS NARANJO MD [address] [facility],[place] [address], [facility] [place], [address] , [facility] - [facility] 4 10:19:44 Ptosis of left upper eyelid 96397479514 9107 Active 2023 DOUGLAS NARANJO MD [address] [facility],[place] [address], [place], [phone] , [facility] - [facility] 4 10:29:43 Allergic rhinitis 34490254 Active 2023 Silke márquez [place] - [facility] 13:36:28 Problem Notes None recorded. Procedures Surgical History Date Name Laterality Status Provider Name and Address Organization Details Recorded Time 06/30/20 24 Fiberoptic Laryngoscopy (Comprehensive) completed DOUGLAS OLVERA MD [address] [facility],[place] [address], [place], [phone], [facility] - [facility] 06/30/2024 10:25:51 proximal subtotal gastrectomy by abdominal approach completed Harrison Garcia [facility] 06/30/2024 10:25:00 Imaging Results None recorded. Procedure Notes None recorded. Medical Equipment None Reported. Medications Name Sig Start Date Stop Date Status Note LastModified by Organization Details LastModified Time losartan 50 mg tablet active Medicati on ID: [id number] B rand Name: losartan Send Method: E-Prescr [...] 10 mg tablet active Medicati on ID: [id number] B rand Name: amlodipi ne Send Method: E-Prescr ibed Sub s Allowed: subs OK Medic ationGen ericName : amlodipi ne Not Available Not Available Not Available cephalexi n 500 mg capsule TAKE 1 CAPSULE BY MOUTH EVERY 6 HOURS FOR 7 DAYS 06/30 completed Not Available Not Available Not Available furosemid e 20 mg tablet active Medicati on ID: [id number] B rand Name: furosemi de Send Method: [...] Updated DateTime 06/30/2024 165.1 cm 29.5 kg/m2 97665.85 g Harrison Garcia [place] - [facility] 06/30/2024 09:57:49 Social History None recorded. Functional Status None recorded. Mental Status None recorded. Family History Nothing Reported. Medical History Condition Response Heart Problems Y Asthma Y Past Encounters Encounter ID Performer Location Encounter Start Date Encounter Closed Date Diagnosis/Indication Diagnosis SNOMED-CT Code Diagnosis ICD10 Code Diagnosis Note [id number] DOUGLAS NARANJO MD [facility] [address] [address] 06/30/2024 09:41:04 06/30/2024 10:32:04 Chronic rhinitis 20164576 J31.0 Patient with chronic nasal drainage, postnasal [...] left ptosis Feeling of lump in throat 714718830 R09.89 We also discussed that some of his symptoms are likely due to his known history of cricophary ngeal spasm. I do not see any pooling of secretions that would suggest significan t obstructio n requiring any interventi on. Posterior rhinorrhea 766 03750 R09.82 Ptosis of left upper eyelid 2953237487 29434 H02.402 Health Concerns Section Related Observation LastModified by Organization Detai ls LastModified Time None Recorded Concern Status LastModified by Organization Details LastModified Time None Recorded Advance Directives Directive None Recorded Payers Insurance Date Sequence Insurance Name Policy Number Policy Wallace Covered Member ID Wallace Member ID Guarantor Name 06/30/2024 1 [facility] [id number] 01 Augustus Reeder [id number] Henrydonald Oswaldra Notes Date Note Type Note Provider Name and Address Organization Details Recorded Time 4 text/htm l Last seen in 2021. Has chronic clear nasal d/c and PND. Frequently clearing his throat Using decongestant sprays intermittentlyPreviously given AtroventHx of cricopharyngeal spasm DOUGLAS OLVERA MD [address] [place] [address], [phone] - [facility] 06/30/2024 10:31:33
== END 2025-03-01 10:44 | disposition home or self-care (01) ==
LOC: HO.HCS 10:16
PROVIDERS: PCP Internal Medicine; Visit Provider Internal Medicine
DX: I48.0 Paroxysmal atrial fibrillation (principal); I50.32 Chronic diastolic (congestive) heart failure; I25.10 Atherosclerotic heart disease of native coronary artery without angina pectoris; I10 Essential (primary) hypertension; G47.33 Obstructive sleep apnea (adult) (pediatric); J84.9 Interstitial pulmonary disease, unspecified
CPT/HCPCS: 99214; G2211

== ENCOUNTER 2025-03-06 09:21 | Outpatient (AMB) | payer MEDICARE, SELFPAY ==
[2025-03-06 09:23] VITALS: BP 118/76; PULSE 92; RESP 18; TEMP 36.2; O2SAT 94; BMI 30.3
--- NOTE | 2025-03-06 09:23 | MHC.PC.OV ---
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 Accompanied by: Spouse Allergies amiodarone Adverse Reaction (Intermediate, Unverified 03/06/25 09:26) ILD amlodipine Adverse Reaction (Intermediate, Verified 03/06/25 09:26) leg swelling gabapentin Adverse Reaction (Intermediate, Verified 03/06/25 09:26) lethargy lisinopril Adverse Reaction (Intermediate, Verified 03/06/25 09:26) Cough metformin Adverse Reaction (Intermediate, Verified 03/06/25 09:26) lethargy Tobacco use date assessed: 03/06/25 Fall risk assessment: No Falls in past year Last assessed Fall Risk: 03/06/25 Dental Screening Dental Screen Date: 03/06/25 Did you have a dental visit in the last 12 months?: Yes Did you have a dental problem in the last 6 months where you did not have access to dental care?: No Was dental information given to patient?: Patient has dentist [facility] Medical History Interstitial lung disease Shingles CHF (congestive heart failure) Preop exam for internal medicine Bilateral pleural effusion Pneumonia Physical deconditioning CKD (chronic kidney disease) stage 3, GFR 30-59 ml/min (HFpEF) heart failure with preserved ejection fraction Obesity (BMI 30-39.9) LARISSA (obstructive sleep apnea) PAF (paroxysmal atrial fibrillation) Type 2 diabetes mellitus with unspecified complications Peptic ulcer disease Non Hodgkin's lymphoma Anxiety and depression Hypercholesterolemia Vitamin D deficiency Obesity (BMI 30-39.9) Type 2 diabetes mellitus with hyperglycemia Thrombocytopenia Surgical History Hx of cataract extraction History of esophagogastroduodenoscopy (EGD) H/O colonoscopy H/O lymph node biopsy History of shoulder surgery Family History Father Lung cancer Mother Breast cancer Sister Breast cancer Brother Substance use disorder Sister No problems noted. Son No problems noted. Daughter No problems noted. Social History Household Members: Spouse and Children Housing: House Are you a primary healthcare administration intern to a significant other at home: No Do you presently have visiting nurse or other home services: No Alcohol intake: never Patient Tobacco Use Status: Never used Tobacco Tobacco use type: Cigarette e-Cigarette/Vaping Use: Never Used Second Hand Smoke Exposure: No Advance Directives Date on File: 12/19/21 service: No Current occupational status: retired Cognitive needs: Yes (Walker, cane) Hearing needs: No Vision needs: Yes (Glasses) Questionnaire PHQ-9 Over the last 2 weeks, how often have you been bothered by any of the following problems? 1. Little interest or pleasure in doing things: not at all 2. Feeling down, depressed, or hopeless: not at all 3. Trouble falling or staying asleep, or sleeping too much: not at all 4. Feeling tired or having little energy: several days 5. Poor appetite or overeating: not at all 6. Feeling bad about yourself - or that you are a failure or have let yourself or your family down: not at all 7. Trouble concentrating on things, such as reading the newspaper or watching television: not at all 8. Moving or speaking so slowly that other people could have noticed. Or the opposite - being so fidgety or restless that you have been moving around a lot more than usual: not at all 9. Thoughts that you would be better off or of hurting yourself in some way: not at all Total score: 1 Depression Screening Interpretation: Positive Depression Screening Done: Yes Source: Developed by Drs. Simon Zhou, Latisha Huang, Ayo Rodríguez and colleagues, with an educational skye from [employer]. Thrive Questionnaire Date Thrive assessed: 11/15/24 I am a: Patient What is your living situation today?: I have a steady place to live Within the past 12 months, did the food you bought not last and you didn't have the money to get more?: Never true Within the past 12 months, did you worry whether your food would run out before you got money to buy more?: Never true Do you have trouble paying for medicines?: No Do you have trouble getting transportation to medical appointments?: No Do you have trouble paying your heating and electricity bill?: No Do you have trouble taking care of your child, family member or friend?: No Do you have trouble with day-to-day activities such as bathing, preparing meals, shopping, managing finances, etc.?: No Are you currently unemployed and looking for a job?: No Are you interested in more education?: No Please select the resources that you would like help with: None Currently or been in a relationship where the following occur: No concerns reported THRIVE Score: 0 AUDIT C Alcohol Use Questionnaire (AUDIT-C) 1. How often do you have a drink containing alcohol?: Never 3. How often do you have six or more drinks on one occasion?: Never Total Score: 0 AIDAN-7 AMB Questionnaire AIDAN-7 Date AIDAN - 7 assessed: 08/21/24 Feeling nervous, anxious, or on edge: 0 = Not at all Not being able to stop or control worryin = Not at all Worrying too much about different things: 0 = Not at all Trouble relaxin = Not at all Being so restless that it is hard to sit still: 0 = Not at all Becoming easily annoyed or irritable: 0 = Not at all Feeling afraid as if something awful might happen: 0 = Not at all Total AIDAN-7 score (0-4 normal; 5-9 mild; 10-14 moderate; 15-21 severe): 0 Source: Developed by Drs. Simon Zhou, Latisha Huang, Ayo Rodríguez and colleagues, with an educational skye from [employer]. Physical exam (Primary Care) Vital Signs: Last Vital Signs Temp 97.1 F 03/06/25 09:23 Pulse 92 03/06/25 09:23 Resp 18 03/06/25 09:23 BP 118/76 03/06/25 09:23 Pulse Ox 94 03/06/25 09:23 Oxygen Delivery Method Room Air 03/06/25 09:23 BMI result Body Mass Index 30.3 Tobacco/Smoking Status: Tobacco use Status Tobacco use date assessed 03/06/25 03/06/25 09:28 Patient Tobacco Use Status Never used Tobacco 03/06/25 09:28 Tobacco use type Cigarette 03/06/25 09:28 e-Cigarette/Vaping Use Never Used 03/06/25 09:28 PHQ-9: PHQ-9 Score PHQ-9: Total score 1 03/06/25 09:38 Depression Screening Interpretation: Positive Thrive Assessment: Date of Thrive Assessment Date Thrive assessed 11/15/24 03/06/25 09:28 Currently or been in a relationship where the following occur: No concerns reported Const General: alert; No acute distress Eyes Conjunctivae: conjunctivae normal Resp Auscultation: clear to auscultation bilaterally Cardio Rate: regular rate Rhythm: regular rhythm GI Inspection: Yes normal to inspection Extrem General: Yes normal to inspection and No edema Coding Level of Care Code Est Pt Level 4 (97874) Complex EM visit Add On G2211 Diagnoses Essential hypertension I10 Atherosclerotic cardiovascular disease I25.10 Chronic heart failure with preserved ejection fraction (HFpEF) I50.32 PAF (paroxysmal atrial fibrillation) I48.0 Hypercholesterolemia E78.00 Type 2 diabetes mellitus with hyperglycemia, without long-term current use of insulin E11.65 Diabetes mellitus intermission coordinator insulin use: without intermission coordinator use Hypothyroid E03.9 Interstitial lung disease J84.9 Assessment & Plan Assessment & Plan (1) Essential hypertension: Code(s): I10 - Essential (primary) hypertension Category: Medical Plan: Continue with blood pressure medication. Decrease salt intake and exercise patient on metoprolol 100 mg once a day (2) Atherosclerotic cardiovascular disease: Code(s): I25.10 - Atherosclerotic heart disease of [place] coronary artery without angina pectoris Category: Medical Plan: Control the cholesterol, weight, blood pressure, diabetes on Eliquis anticoagulation (3) Chronic heart failure with preserved ejection fraction (HFpEF): Code(s): I50.32 - Chronic diastolic (congestive) heart failure Category: Medical Plan: Continue with diuretic furosemide continue to monitor renal function (4) PAF (paroxysmal atrial fibrillation): Comment: Cardioversion 12/04/2021 Code(s): I48.0 - Paroxysmal atrial fibrillation Category: Medical Plan: On anticoagulation with Eliquis continuous monitor renal function can not use amiodarone due to interstitial lung disease (5) Hypercholesterolemia: Code(s): E78.00 - Pure hypercholesterolemia, unspecified Category: Medical Plan: Avoid fried foods, chicken skin, eggs, butter margarine, pastries and meat. Be it pork or beef they have a lot of cholesterol LDL goal of less than 70 and triglyceride of less than 150 patient is on atorvastatin 80 (6) Type 2 diabetes mellitus with hyperglycemia: Comment: dx ~ 2015-does not check glucose at home Code(s): E11.65 - Type 2 diabetes mellitus with hyperglycemia Category: Medical Qualifiers: Diabetes mellitus correction insulin use: without correction use Qualified Code(s): E11.65 - Type 2 diabetes mellitus with hyperglycemia Plan: Decrease the amount of carbohydrate intake, pasta, bread, rice and potatoes are all sugar and that is aside from all the sweet stuff, remember that fruits are good but they are Sweet also. Hemoglobin A1c goal of less than 7.0 on glipizide 5 mg once a day but placed on hold due to normal hemoglobin A1c (7) Hypothyroid: Code(s): E03.9 - Hypothyroidism, unspecified Category: Medical Plan: Continue with thyroid medication but will need retesting (8) Interstitial lung disease: Comment: He has mild interstitial lung disease in the basilar areas, in addition to chronic congestive heart failure. He is doing very well at this time . Denies any significant amount of cough for shortness of breath. Code(s): J84.9 - Interstitial pulmonary disease, unspecified Category: Medical Plan: Patient follows up with Pulmonary. This is mild may use albuterol as needed Plan History of Present Illness The patient is an 79-year-old male presenting for a follow-up visit to manage multiple chronic conditions, including atrial fibrillation and congestive heart failure. The patient has a history of hypercholesterolemia and hypertension, which have been managed with medication. He also has congestive heart failure with preserved ejection fraction and obstructive sleep apnea, for which CPAP therapy was intolerable. The patient has diabetes mellitus, which is currently well-controlled with a hemoglobin A1c of 5.8, and he is on a low dose of Ozempic. He also has a history of depression and atrial fibrillation, for which he is on anticoagulation therapy with Eliquis and metoprolol. The patient has interstitial lung disease, which is stable, and he follows up with pulmonary specialists. He also has mild atherosclerotic cardiovascular disease and multivessel coronary artery calcification. The patient has a moderately large pleural effusion bilaterally, primarily due to congestive heart failure, and is managed with diuretics. His renal function is being monitored due to mild elevation, and he has a history of hepatic steatosis. The patient has been diagnosed with basal cell carcinoma and is scheduled for Mohs surgery in May. Health Maintenance - Vaccination: Shingles vaccination discussed, patient to receive two shots. - Screening: Regular follow-up with cardiology and pulmonary specialists. - Lifestyle: Encouraged to maintain physical activity and healthy diet to manage weight and liver health. Social History - Exercise: Limited physical activity due to foot pain, awaiting orthopedic shoes. - Nutrition: Consumes a diet high in fruits, with a preference for pears, apples, and blueberries. - Family: Provides care for a paralyzed son, impacting daily routine. Review of Systems - Cardiovascular: Reports no chest pain or palpitations. - Respiratory: Reports stable breathing with mild interstitial lung disease. - Endocrine: Denies symptoms of hyperglycemia, reports stable blood sugar levels. - Dermatological: Reports basal cell carcinoma, scheduled for surgery. Physical Exam Results - Labs: Normal blood count, mild thrombocytopenia, normal electrolytes, renal function stable at 1.54, hemoglobin A1c at 5.8, elevated liver function tests, LDL at 46, triglycerides at 214, mildly elevated thyroid levels. - Imaging: Abdominal ultrasound in August showed hepatic steatosis and bladder polyps. Plan The patient will continue on metoprolol and Eliquis for atrial fibrillation management, with regular monitoring of renal function due to the use of diuretics. For diabetes management, the patient is on a low dose of Ozempic, with plans to increase the dose if weight loss is not achieved. The patient is advised to maintain a healthy diet and engage in regular physical activity to manage hypercholesterolemia and hepatic steatosis. The patient is scheduled for Mohs surgery for basal cell carcinoma in May and will follow up with dermatology as needed. A follow-up appointment is scheduled in three months to reassess kidney function and thyroid levels, with a request for blood work at that time. Patient was informed and verbally consented to the use of an ambient scribe for clinic note documentation during this visit. Discussion Notes During the visit, I discussed with the patient the importance of continuing his current medications, including metoprolol and Eliquis, and the need for regular monitoring of renal function due to diuretic use. We also talked about the management of his diabetes with Ozempic and the potential need to adjust the dose if weight loss is not achieved. I emphasized the importance of a healthy diet and regular physical activity to manage his cholesterol levels and liver health. The patient is scheduled for Mohs surgery for basal cell carcinoma, and we discussed the follow-up care with dermatology. A follow-up appointment is planned in three months to reassess kidney function and thyroid levels, with blood work to be done prior to the visit. Patient Instructions - Continue taking metoprolol and Eliquis as prescribed. - Monitor blood sugar levels and report any significant changes. - Maintain a healthy diet and engage in regular physical activity. - Attend scheduled Mohs surgery for basal cell carcinoma in May. - Follow up in three months for kidney function and thyroid level assessment. Orders: Orders Comprehensive Met. Panel 3 Months - Type 2 diabetes mellitus with hyperglycemia Free T4 (Free Thyroxine) 3 Months . - Type 2 diabetes mellitus with hyperglycemia Hemoglobin A1c 3 Months . - Type 2 diabetes mellitus with hyperglycemia Complete Blood Count Auto Diff 3 Months . - Type 2 diabetes mellitus with hyperglycemia Thyroid Stimulating Hormone 3 Months . - Type 2 diabetes mellitus with hyperglycemia Medications: Changed From semaglutide (Ozempic) 0.25 mg once a week for 4 weeks and then evaluated 0.25 mg (0.368 mL) subcut QWEEK 30 days 1.84 mL 1RF . - Type 2 diabetes mellitus with hyperglycemia To semaglutide 0.25 mg once a week for 4 weeks and then evaluated 1 mg (0.75 mL) subcut QWEEK 3.75 mL 1RF 30 days - Type 2 diabetes mellitus with hyperglycemia Discontinued glipizide ER Discontinued Reason: Doctor's Order 5 mg PO DAILY 90 tabs 2RF . - Type 2 diabetes mellitus with hyperglycemia
--- OUTSIDE RECORDS SUMMARY | 2025-03-06 09:48 | XMS_ITS | Patient Health Record ---
[facility] Organization [facility] Address [address] [place] [address] Care Team Providers Care Molder Foam Rubber Name Role Phone Carmen Peters Primary Care Provider Unavailabl e Black, Zulma Unavailable [phone] Allergies Allergen (clinical drug ingredient) Drug/Non Drug Allergy documented on EMR Reaction Allergy Type Onset Date Status oxymetazoline Nasal Unknown Drug Allergy Act millie Results Component Value Reference Range Notes HEMOGLOBIN A1C (GLYCOHEMOGLO BIN) Reviewed date:02/12/2025 02:16:51 PM Interpretation: Performing Lab: Notes/Report: HEMOGLOBIN A1C % (HH) 6.9 Reason For Referral No Information Medications Medication SIG (Take, Route, Frequency, Duration) Notes Start Date End Date Status Extra Depth Orthopedic Shoes (1 Pair) with Customized Heat Molded Multidensity Innersoles (3 Pair) as directed Dx: NIDDM (E11.9), Hammertoe Foot Deformity (M20.41,M20.42), Preulcerative Skin Lesion(s) (L85.1) 02/12/2025 Active Aspirin 81 MG 1 tablet Orally Once a day; Duration: 30 day(s) Not-Taking Ammonium Lactate 12 % 1 application Externally to feet except for between the toes Twice a day; Duration: 30 days Not-Taking Tamsulosin HCl 0.4 MG 1 capsule Orally O nce a day Active Losartan Potassium 50 MG 1 tablet Orally Once a day; Duration: 30 day(s) Not-Taking Bethanechol Chloride 50 MG 1 tablet 1 hour before or 2 hours after meals Orally Three times a day Active Pioglitazone HCl 15 MG 1 tablet Orally Once a day; Duration: 30 day(s) Not-Taking Multi Vitamin - 1 tablet Orally Once a day Active Amoxicillin 100 mg for 1 month Not-Taking Ipratropium Sweet Briar 0.03 % 2 sprays in each nostril Nasally Twice a day Active eliquis 5 mg 02/05/2022 Active Levothyroxine Sodium 100 MCG 1 tablet in the morning on an empty stomach Orally Once a day Active Atorvastatin Calcium 40 MG as directed Orally Active glipiZIDE 5 MG 1 tablet 30 minutes before breakfast Orally Once a day; Duration: 30 day(s) 1 AM, 1 PM Active Metoprolol Succinate 100 MG 1 capsule Orally Once a day; Duration: 30 day(s) Active Pregabalin 50 MG 1 capsule Orally Onc e a day Active Levothroid Active Escitalopram Oxalate 10 MG 1 tablet Orally Once a day Active Furosemide 40 MG 1 tablet Orally Once a day Active Immunizations Vaccine Route Administration Date Status Comme nts Influenza Unknown 08/09/2020 Administered Influenza Unknown 06/09/2022 Administered Influenza Unknown 04/09/2023 Administered Influenza Unknown 04/09/2024 Administered COVID-19 Moderna Vaccine Unknown 06/23/2021 Administered 1st dose 09/19/2020 Second Dose: 10/17/20 Social History Tobacco Use: Social History Observation [...] Are you an other tobacco user? No AUDIT-C (Standard) Question Answer Notes Did you have a drink containing alcohol in the p ast year? No Points 0 Interpretation Negative Problems Problem Type SNOMED Code ICD Code Onset Dates Problem Status W/U Status Risk Notes Problem Acquired hammer toe of right foot (0961690476820884 ) Other hammer toe(s) (acquired), right foot (M20.41) Active confirmed Problem Acquired hammer toe of lesser toe of left foot (0840289181386956 3) Other hammer toe(s) (acquired), left foot (M20.42) Active confirmed Problem Polyneuropathy due to type 2 diabetes mellitus (472881995) Type 2 diabetes mellitus with diabetic polyneuropathy (E11.42) Active confirmed Problem Arthritis (8400367) Arthritis (M19.90) Active confirmed Vital Signs Blood pressure diastolic 65 mm Hg 02/12/2025 Height 5 ft 5 in in 02/12/2025 Blood pressure systolic 170 mm Hg 02/12/2025 Weight 185 lbs 02/12/2025 BMI 30.78 kg/m2 02/12/2025 Procedures Procedure Date Ordered Date Performed Result Body Sit e 41632-KEPVRZI NAIL, 6 OR MORE 05/01/2024 N/A 55667-WBLA SKIN LESIONS, 2 TO 4 05/01/2024 N/A 69518-YFMEQWS NAIL, 6 OR MORE 08/08/2024 N/A 44040-Cinqnbzo Plate 08/08/2024 N/A 99663-XKWJ SKIN LESIONS, 2 TO 4 08/08/2024 N/A 38285-VWVAJZL NAIL, 6 OR MORE 11/02/2024 N/A 51026-PADX SKIN LESIONS, 2 TO 4 11/02/2024 N/A 35643-OJNYIEE NAIL, 6 OR MORE 02/12/2025 N/A 67188-HOFJ SKIN LESIONS, 2 TO 4 02/12/2025 N/A Encounters Encounter Location Date Provider Diagnosis [address] [address] 05/01/2024 Zulma Black Neuralgia and neuritis, unspecified M79.2 ; Xerosis of skin L85.3 ; Type 2 diabetes mellitus with diabetic polyneuropathy E11.42 ; Tinea unguium B35.1 ; Pain in left foot M79.672 ; Neuropathy G62.9 and Tingling in extremities R20.[address] [address] 08/08/2024 Zulma Black Neuralgia and neuritis, unspecified M79.2 ; Xerosis of skin L85.3 ; Type 2 diabetes mellitus with diabetic polyneuropathy E11.42 ; Tinea unguium B35.1 ; Neuropathy G62.9 ; Tingling in extremities R20.2 and Ingrown nail L60.[address] [address] 11/02/2024 Zulma Black Type 2 diabetes mellitus with diabetic polyneuropathy E11.42 and Tinea unguium B35.1 [facility] [address] [place] [address] 02/12/2025 Zulma Black Type 2 diabetes mellitus with diabetic polyneuropathy E11.42 ; Other hammer toe(s) (acquired), right foot M20.41 ; Tinea unguium B35.1 ; Other hammer toe(s) (acquired), left foot M20.42 ; Ingrown nail L60.0 and Arthritis M19.90 Assessments Encounter Date Diagnosis (ICD Code) Assessment Notes Treatment Notes Treatment Clinical Notes Section Notes 05/01/2024 Neuralgia and neuritis, unspecified (ICD-10 - M79.2) 05/01/2024 Xerosis of skin (ICD-10 - L85.3) 08/08/2024 Neuralgia and neuritis, unspecified (ICD-10 - M79.2) 08/08/2024 Xerosis of skin (ICD-10 - L85.3) 11/02/2024 Tinea unguium (ICD-10 - B35.1) 11/02/2024 Type 2 diabetes mellitus with diabetic polyneuropathy (ICD-10 - E11.42) 02/12/2025 Other hammer toe(s) (acquired), right foot (ICD-10 - M20.41) Patient Educated with: DIABETIC FOOT CARE INSTRUCTIONS. pdf (DIABETIC FOOT CARE INSTRUCTIONS. pdf) 02/12/2025 Type 2 diabetes mellitus with diabetic polyneuropathy (ICD-10 - E11.42) 02/12/2025 Tinea unguium (ICD-10 - B35.1) 08/08/2024 Type 2 diabetes mellitus with diabetic polyneuropathy (ICD-10 - E11.42) 05/01/2024 Type 2 diabetes mellitus with diabetic polyneuropathy (ICD-10 - E11.42) 05/01/2024 Tinea unguium (ICD-10 - B35.1) 08/08/2024 Tinea unguium (ICD-10 - B35.1) 02/12/2025 Other hammer toe(s) (acquired), left foot (ICD-10 - M20.42) 08/08/2024 Neuropathy (ICD-10 - G62.9) 05/01/2024 Pain in left foot (ICD-10 - M79.672) 02/12/2025 Ingrown nail (ICD-10 - L60.0) 02/12/2025 Arthritis (ICD-10 - M19.90) 08/08/2024 Tingling in extremities (ICD-10 - R20.2) 05/01/2024 Neuropathy (ICD-10 - G62.9) 05/01/2024 Tingling in extremities (ICD-10 - R20.2) 08/08/2024 Ingrown nail (ICD-10 - L60.0) Plan Of Treatment Pending Test Test Name Order Date 23590-OHQLAOC NAIL, 6 OR MORE 02/17/2021 54528-TYKWLKP NAIL, 6 OR MORE 05/29/2021 27982-NPODKBH NAIL, 6 OR MORE 09/08/2021 08253-HMEIYAY NAIL, 6 OR MORE 02/05/2022 68201-FHCNBHT NAIL, 6 OR MORE 05/07/2022 20037-KJFMBYT NAIL, 6 OR MORE 09/10/2022 79741-AYVBETQ NAIL, 6 OR MORE 12/17/2022 73638-FEKMVIH NAIL, 6 OR MORE 03/29/2023 58712-BCJYNYB NAIL, 6 OR MORE 06/28/2023 67366-JSILNZV NAIL, 6 OR MORE 10/11/2023 22171-KSULBAE NAIL, 6 OR MORE 01/24/2024 39488-DUSIQLU NAIL, 6 OR MORE 05/01/2024 59470-QTOVRFI NAIL, 6 OR MORE 08/08/2024 95870-SVXJVHL NAIL, 6 OR MORE 11/02/2024 16136-HLMYCZX NAIL, 6 OR MORE 02/12/2025 39307-Rmax Destruction, 1-14 05/29/2021 34991-Qyzwbiim Plate 09/08/2021 23908-Xsiczqxk Plate 08/08/2024 36549-Hecydylc Plate 02/05/2022 83261-Dksavxpx Plate 03/29/2023 85554-Jzztjbfg Plate Each Additional 43586-BZWJ SKIN LESIONS, 2 TO 4 05/07/20 21694-VADE SKIN LESIONS, 2 TO 4 12/18/19 23 78916-CNUE SKIN LESIONS, 2 TO 4 09/10/19 50223-TWOO SKIN LESIONS, 2 TO 4 02/18/20 44365-OERW SKIN LESIONS, 2 TO 4 05/29/20 95003-EHJW SKIN LESIONS, 2 TO 4 02/06/20 95786-DDLN SKIN LESIONS, 2 TO 4 09/08/19 06215-UQDH SKIN LESIONS, 2 TO 4 03/29/20 96752-NNDW SKIN LESIONS, 2 TO 4 10/11/19 24 92885-AVAF SKIN LESIONS, 2 TO 4 06/28/20 50764-BMAQ SKIN LESIONS, 2 TO 4 08/08/20 34945-CRTJ SKIN LESIONS, 2 TO 4 05/01/20 24 58648-ROSA SKIN LESIONS, 2 TO 4 01/24/20 24 20623-HFBT SKIN LESIONS, 2 TO 4 02/13/20 52801-WBBX SKIN LESIONS, 2 TO 4 11/03/19 13117-Xitx. Subungual Hematoma 3 29292,W7491-TYC TENDON SHEATH/LIGAMENT 1 Next Appt Details Provider Name:Zulma Toro , 05/14/2025 09:15:00 AM, [address] [facility], [place], [address], Insurance Providers Payer Name Payer Address Payer Phone Subscriber Number Group Number Insured Name Patient Relationship to Insured Coverage Start Date Coverage End Date [employer] [address] [place] [address] [id number] Augustus Reeder Self - patient is the insured Medical (General) History Medical History History ICD Code Cancer Hypertension High Cholesterol Arthritis Back,Hip,and Knee pain Cataracts Diabetic Stomach ulcer Chicken pox Transfusions Rosacea A-Fib Shingles Surgical History Surgery Date(Month/Year) 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
--- OUTSIDE RECORDS SUMMARY | 2025-03-06 09:48 | XMS_ITS | Data Portability ---
Author Organization [place] [facility], Allergy Address [address] [address] Care Team Providers Care Dominatrix Name Role Phone ANTWANCARLA Primary Care Provider Assessment No assessment recorded. Plan of Treatment Reminders Order Date Submit Date Provider Last Modified By Organization Details Last Modified Time Details Appointments None recorded. Lab None recorded. Referral None recorded. Procedures None recorded. Surgeries None recorded. Imaging None recorded. Medication Orders ipratropium bromide 21 mcg (0.03 %) nasal spray 2023 024 [facility], [address] [place] [address], [id number], 4 10:26:51 Patient TargetsNo targets recorded. Patient InstructionsNo instructions recorded. Reason for Referral None Reported. Problems Name Problem SNOMED Code Status Onset Date Resolution Date Notes Provider Name and Address Organization Details Recorded Time [facility] salivary secretion 38259939 Active 2021 [facility] salivary secretion ; Note: Date Diagnosed : 2 4:44 PM (K11.7) Not Available [facility] 4 03:11:05 Chronic rhinitis 33760075 Active 2021 Chronic rhinitis; Note: Date Diagnosed : 2 4:44 PM (J31.0) Not Available [facility] 4 03:11:06 Feeling of lump in throat 365469980 Active 2023 DOUGLAS NARANJO MD [address] [facility],[place] [address], [place], [address] , [facility] - [facility] 4 10:19:36 Posterior rhinorrhe a 04561721 Active 2023 DOUGLAS NARANJO MD [address] [facility],[place] [address], [place], [address] , [facility] - [facility] 4 10:19:44 Ptosis of left upper eyelid 45059986844 9107 Active 2023 DOUGLAS NARANJO MD [address] [facility],[place] [address], [place], [address] , [facility] - [facility] 4 10:29:43 Allergic rhinitis 19612745 Active 2023 Silke márquez [place] - [facility] 13:36:28 Problem Notes None recorded. Procedures Surgical History Date Name Laterality Status Provider Name and Address Organization Details Recorded Time 06/30/20 24 Fiberoptic Laryngoscopy (Comprehensive) completed DOUGLAS OLVERA MD [address] [facility],[place] [address], [place], [address], [facility] - [facility] 06/30/2024 10:25:51 proximal subtotal gastrectomy by abdominal approach completed Harrison Garcia [facility] 06/30/2024 10:25:00 Imaging Results None recorded. Procedure Notes None recorded. Medical Equipment None Reported. Medications Name Sig Start Date Stop Date Status Note LastModified by Organization Details LastModified Time losartan 50 mg tablet active Medicati on ID: 274704 B rand Name: losartan Send Method: E-Prescr [...] Not Available Not Available Not Available azithromy bryec 250 mg tablet TAKE 2 TABLETS BY [...] 10 mg tablet active Medicati on ID: 239690 B rand Name: amlodipi ne Send Method: E-Prescr ibed Sub s Allowed: subs OK Medic ationGen ericName : amlodipi ne Not Available Not Available Not Available cephalexi n 500 mg capsule TAKE 1 CAPSULE BY MOUTH EVERY 6 HOURS FOR 7 DAYS 06/30 completed Not Available Not Available Not Available furosemid e 20 mg tablet active Medicati on ID: 293320 B rand Name: furosemi de Send Method: [...] Updated DateTime 06/30/2024 165.1 cm 29.5 kg/m2 61122.85 g Harrison Garcia [place] - [facility] 06/30/2024 09:57:49 Social History None recorded. Functional Status None recorded. Mental Status None recorded. Family History Nothing Reported. Medical History Condition Response Heart Problems Y Asthma Y Past Encounters Encounter ID Performer Location Encounter Start Date Encounter Closed Date Diagnosis/Indication Diagnosis SNOMED-CT Code Diagnosis ICD10 Code Diagnosis Note [id number] DOUGLAS NARANJO MD [facility] [address] [address] 06/30/2024 09:41:04 06/30/2024 10:32:04 Chronic rhinitis 97468753 J31.0 Patient with chronic nasal drainage, postnasal [...] left ptosis Feeling of lump in throat 039856681 R09.89 We also discussed that some of his symptoms are likely due to his known history of cricophary ngeal spasm. I do not see any pooling of secretions that would suggest significan t obstructio n requiring any interventi on. Posterior rhinorrhea 482 58616 R09.82 Ptosis of left upper eyelid 8823548265 82354 H02.402 Health Concerns Section Related Observation LastModified by Organization Faiza aragon LastModified Time None Recorded Concern Status LastModified by Organization Details LastModified Time None Recorded Advance Directives Directive None Recorded Payers Insurance Date Sequence Insurance Name Policy Number Policy Wallace Covered Member ID Wallace Member ID Guarantor Name 06/30/[address] [place] [address] [id number] 01 Augustus Reeder [id number] Augustus Reeder
== END 2025-03-06 10:01 | disposition home or self-care (01) ==
LOC: HO.HMCH 09:22
PROVIDERS: PCP Internal Medicine; Visit Provider Internal Medicine
DX: E11.65 Type 2 diabetes mellitus with hyperglycemia (principal); I50.32 Chronic diastolic (congestive) heart failure; I48.0 Paroxysmal atrial fibrillation; J84.9 Interstitial pulmonary disease, unspecified; I10 Essential (primary) hypertension; I25.10 Atherosclerotic heart disease of native coronary artery without angina pectoris; E78.00 Pure hypercholesterolemia, unspecified; E03.9 Hypothyroidism, unspecified

== ENCOUNTER → 2025-03-06 09:21 | Outpatient (BNVA) | payer MEDICARE, SELFPAY | PROVIDERS: PCP Internal Medicine; Visit Provider Internal Medicine | DX: I11.0 Hypertensive heart disease with heart failure (principal); I50.32 Chronic diastolic (congestive) heart failure; I25.10 Atherosclerotic heart disease of native coronary artery without angina pectoris; I48.0 Paroxysmal atrial fibrillation; E78.00 Pure hypercholesterolemia, unspecified; E11.65 Type 2 diabetes mellitus with hyperglycemia; E03.9 Hypothyroidism, unspecified; J84.9 Interstitial pulmonary disease, unspecified; Z79.01 Long term (current) use of anticoagulants; Z79.899 Other long term (current) drug therapy; Z13.31 Encounter for screening for depression | CPT/HCPCS: 96127; 99212 ==

== ENCOUNTER 2025-06-22 09:02 | Outpatient (REF) | payer MEDICARE, SELFPAY ==
[2025-06-22 10:16] LABS: MANUAL DIFF FLAG NO
[2025-06-22 10:38] LABS: Hematocrit 44.5 % (42.0-52.0); Hemoglobin 14.6 g/dl (14.0-18.0); Imm Gran Abs Auto 0.04 X10*3/uL (0.00-0.03); Imm Gran Pct Auto 0.8 % (0.0-0.4); Lymphocytes Absolute Auto 1.4 X10*3/uL (1.2-4.9); Mean Corpuscular HGB Conc 32.8 g/dl (31.0-36.0); Mean Corpuscular Hemoglobin 27.2 pg (27.0-33.0); Mean Corpuscular Volume 82.9 fL (80.0-98.0); NRBC Abs Auto 0.000 X10*3/uL (0.0-0.012); NRBC Pct Auto 0.0 /100WBC (0.0-0.2); Platelet Count 136 X10*3/uL (160-400); Red Blood Count 5.37 X10*6/uL (4.60-5.80); White Blood Count 5.2 X10*3/uL (4.8-10.8)
[2025-06-22 11:08] LABS: Alanine Aminotransferase 24 U/L (0-40); Albumin Level 4.2 g/dL (3.5-5.0); Alkaline Phosphatase 105 U/L (39-117); Anion Gap 15 (12-20); Aspartate Amino Transferase 36 U/L (5-37); Blood Urea Nitrogen 19 mg/dL (9-16); Calcium 9.7 mg/dL (8.4-10.2); Carbon Dioxide 27 mmol/L (22-29); Chloride 102 mmol/L (96-108); Estimated Glomerular Filt Rate 45; Potassium 4.2 mmol/L (3.3-5.1); Sodium 140 mmol/L (135-145); Total Protein 7.2 g/dL (6.5-8.0)
[2025-06-22 11:18] LABS: Free T4 (Free Thyroxine) 1.21 ng/dL (0.71-1.85); Thyroid Stimulating Hormone 3.15 uIU/mL (0.32-4.0)
[2025-06-22 12:33] LABS: Microalbum/Creatinine Ratio Ur 41.0 ug/mg cr (<30)
== END 2025-06-22 09:03 | disposition home or self-care (01) ==
LOC: HO.HMGCLDS 09:02
PROVIDERS: PCP Internal Medicine; Visit Provider Internal Medicine
DX: E11.65 Type 2 diabetes mellitus with hyperglycemia (principal)
CPT/HCPCS: 36415; 80053; 82043; 82570; 83036; 84439; 84443; 85025

== ENCOUNTER 2025-06-29 09:47 | Outpatient (AMB) | payer MEDICARE, SELFPAY ==
[2025-06-29 09:53] VITALS: BP 104/60; PULSE 88; TEMP 36.2; O2SAT 95; BMI 30.3
--- NOTE | 2025-06-29 09:53 | A.OFFPC_ITS ---
Vital Signs 06/29/25 09:53 Height 5 ft 5 in Weight 182 lb BMI 30.3 BP 104/60 Blood Pressure Location Lt brachial Position Sitting Pulse 88 Pulse Source Auscultation Temp 97.1 F Temp Source Temporal Artery Scan Pulse Oximetry (%) 95 Oxygen Delivery Method Room Air Intake Visit Reasons: CHF, A fib Accompanied by: Spouse Allergies amiodarone Adverse Reaction (Intermediate, Unverified 06/29/25 09:54) ILD amlodipine Adverse Reaction (Intermediate, Verified 06/29/25 09:54) leg swelling gabapentin Adverse Reaction (Intermediate, Verified 06/29/25 09:54) lethargy lisinopril Adverse Reaction (Intermediate, Verified 06/29/25 09:54) Cough metformin Adverse Reaction (Intermediate, Verified 06/29/25 09:54) lethargy Tobacco use date assessed: 06/29/25 Fall risk assessment: No Falls in past year Last assessed Fall Risk: 06/29/25 Dental Screening Dental Screen Date: 06/29/25 Did you have a dental visit in the last 12 months?: Yes Did you have a dental problem in the last 6 months where you did not have access to dental care?: No Was dental information given to patient?: Patient has dentist HPI HPI Comments History of Present Illness Details History of Present Illness The patient is an 79 year old individual presenting for a follow-up visit for management of multiple chronic medical problems, having last been seen in February. The patient has a history of hypercholesterolemia, hypertension, cognitive impairment, congestive heart failure with preserved ejection fraction, obstructive sleep apnea for which the patient does not use a CPAP, hypothyroidism, peripheral vascular disease, diabetes mellitus, atrial fibrillation, depression, atherosclerotic cardiovascular disease, and interstitial lung disease. Regarding health maintenance, the patient's colonoscopy is completed, and an ophthalmology exam in March showed no retinopathy. Recent blood work from June 22 showed a normal blood count with mild, stable thrombocytopenia. Electrolytes are normal, and renal function is stable with a creatinine of 1.5, though the patient has known proteinuria. The hemoglobin A1c is 5.8%, indicating controlled diabetes, and liver function is normal. A lipid panel from February showed an LDL of 46 mg/dL and triglycerides of 214 mg/dL. Thyroid function is normal. An echocardiogram from August 2023 revealed an ejection fraction of 50-55% and a mild dilatation of the ascending aorta, which measured 3.9 cm and has been stable since 2021. The patient is on anticoagulation with Eliquis. The patient reports recent symptoms of nausea and constipation, attributed to semaglutide, and has been taking docusate without relief for constipation. The patient denies current shortness of breath or swelling. Health Maintenance Encouraged the patient to get the second shingrix vaccine. The patient will follow up in three months. Social History - Treatment Adherence: The patient has o bstructive sleep apnea but is not using CPAP. - Diet: The patient was advised to be mi ndful of diet for elevated triglycerides, with exceptions for Thanksgiving, Kathy, and New s. Results - Labs (06/22): - CBC: Normal with mild, stable thromboc ytopenia. - CMP: Electrolytes are good; creatinine is stable at 1.5; liver function is fine. - Blood glucose: 137 mg/dL. - Hemoglobin A1c: 5.8%. - Lipid Panel (February): LDL 46 mg/dL, trig lycerides 214 mg/dL. - TSH: Normal. - B12 and Folic Acid: Good. - Urinalysis: Proteinuria is present. - Imaging: - Echocardiogram (August 2023): Ejectio n fraction 50-55% with mild dilatation of the ascending aorta at 3.9 cm, stable from 2021. [facility] Medical History Interstitial lung disease Shingles CHF (congestive heart failure) Preop exam for internal medicine Bilateral pleural effusion Pneumonia Physical deconditioning CKD (chronic kidney disease) stage 3, GFR 30-59 ml/min (HFpEF) heart failure with preserved ejection fraction Obesity (BMI 30-39.9) LARISSA (obstructive sleep apnea) PAF (paroxysmal atrial fibrillation) Type 2 diabetes mellitus with unspecified complications Peptic ulcer disease Non Hodgkin's lymphoma Anxiety and depression Hypercholesterolemia Vitamin D deficiency Obesity (BMI 30-39.9) Type 2 diabetes mellitus with hyperglycemia Thrombocytopenia Surgical History Hx of cataract extraction History of esophagogastroduodenoscopy (EGD) H/O colonoscopy H/O lymph node biopsy History of shoulder surgery Family History Father Lung cancer Mother Breast cancer Sister Breast cancer Brother Substance use disorder Sister No problems noted. Son No problems noted. Daughter No problems noted. Social History (Reviewed 06/29/25 @ 09:54 by Florina Clarke [facility]) Household Members: Spouse and Children Housing: House Are you a primary memory care program resident to a significant other at home: No Do you presently have visiting nurse or other home services: No Alcohol intake: never Patient Tobacco Use Status: Never used Tobacco Tobacco use type: Cigarette e-Cigarette/Vaping Use: Never Used Second Hand Smoke Exposure: No Advance Directives Date on File: 12/19/21 service: No Current occupational status: retired Cognitive needs: Yes (Walker, cane) Hearing needs: No Vision needs: Yes (Glasses) Questionnaire PHQ-9 Over the last 2 weeks, how often have you been bothered by any of the following problems? 1. Little interest or pleasure in doing things: not at all 2. Feeling down, depressed, or hopeless: not at all 3. Trouble falling or staying asleep, or sleeping too much: not at all 4. Feeling tired or having little energy: several days 5. Poor appetite or overeating: not at all 6. Feeling bad about yourself - or that you are a failure or have let yourself or your family down: not at all 7. Trouble concentrating on things, such as reading the newspaper or watching television: not at all 8. Moving or speaking so slowly that other people could have noticed. Or the opposite - being so fidgety or restless that you have been moving around a lot more than usual: not at all 9. Thoughts that you would be better off or of hurting yourself in some way: not at all Total score: 1 Depression Screening Interpretation: Positive Depression Screening Done: Yes Source: Developed by Drs. Simon Zhou, Latisha Huang, Ayo Rodríguez and colleagues, with an educational skye from [employer]. Thrive Questionnaire Date Thrive assessed: 11/15/24 I am a: Patient What is your living situation today?: I have a steady place to live Within the past 12 months, did the food you bought not last and you didn't have the money to get more?: Never true Within the past 12 months, did you worry whether your food would run out before you got money to buy more?: Never true Do you have trouble paying for medicines?: No Do you have trouble getting transportation to medical appointments?: No Do you have trouble paying your heating and electricity bill?: No Do you have trouble taking care of your child, family member or friend?: No Do you have trouble with day-to-day activities such as bathing, preparing meals, shopping, managing finances, etc.?: No Are you currently unemployed and looking for a job?: No Are you interested in more education?: No Please select the resources that you would like help with: None Currently or been in a relationship where the following occur: No concerns reported THRIVE Score: 0 AUDIT C Alcohol Use Questionnaire (AUDIT-C) 1. How often do you have a drink containing alcohol?: Never 3. How often do you have six or more drinks on one occasion?: Never Total Score: 0 AIDAN-7 AMB Questionnaire AIDAN-7 Date AIDAN - 7 assessed: 08/21/24 Feeling nervous, anxious, or on edge: 0 = Not at all Not being able to stop or control worryin = Not at all Worrying too much about different things: 0 = Not at all Trouble relaxin = Not at all Being so restless that it is hard to sit still: 0 = Not at all Becoming easily annoyed or irritable: 0 = Not at all Feeling afraid as if something awful might happen: 0 = Not at all Total AIDAN-7 score (0-4 normal; 5-9 mild; 10-14 moderate; 15-21 severe): 0 Source: Developed by Drs. Simon Zhou, Latisha Huang, Ayo Rodríguez and colleagues, with an educational skye from [employer]. Review of Systems Narrative Review of Systems - Gastrointestinal: Reports nausea and constipation. - Cardiovascular: Denies swelling. - Respiratory: Denies dyspnea. - Genitourinary: Reports normal urination. Physical exam (Primary Care) Vital Signs: Last Vital Signs Temp 97.1 F 06/29/25 09:53 Pulse 88 06/29/25 09:53 BP 104/60 06/29/25 09:53 Pulse Ox 95 06/29/25 09:53 Oxygen Delivery Method Room Air 06/29/25 09:53 BMI result Body Mass Index 30.3 Tobacco/Smoking Status: Tobacco use Status Tobacco use date assessed 06/29/25 06/29/25 09:58 Patient Tobacco Use Status Never used Tobacco 06/29/25 09:58 Tobacco use type Cigarette 06/29/25 09:58 e-Cigarette/Vaping Use Never Used 06/29/25 09:58 PHQ-9: PHQ-9 Score PHQ-9: Total score 1 06/29/25 10:23 Depression Screening Interpretation: Positive Thrive Assessment: Date of Thrive Assessment Date Thrive assessed 11/15/24 06/29/25 09:58 Currently or been in a relationship where the following occur: No concerns reported Narrative Physical Exam - Heart: Auscultation revealed a fine rate. - Lungs: Clear to auscultation. Const General: alert; No acute distress Eyes Conjunctivae: conjunctivae normal Resp Auscultation: clear to auscultation bilaterally Cardio Rate: regular rate Rhythm: regular rhythm GI Inspection: Yes normal to inspection Extrem General: Yes normal to inspection and No edema Coding Level of Care Code Complex visit Add On G2211 Diagnoses Type 2 diabetes mellitus with hyperglycemia, without long-term current use of insulin E11.65 Diabetes mellitus assisted insulin use: without assisted use Hypothyroid E03.9 Hypercholesterolemia E78.00 Essential hypertension I10 Atherosclerotic cardiovascular disease I25.10 PAF (paroxysmal atrial fibrillation) I48.0 Chronic heart failure with preserved ejection fraction (HFpEF) I50.32 Interstitial lung disease J84.9 Assessment & Plan Assessment & Plan (1) Type 2 diabetes mellitus with hyperglycemia: Comment: dx ~ 2014-does not check glucose at home Code(s): E11.65 - Type 2 diabetes mellitus with hyperglycemia Category: Medical Qualifiers: Diabetes mellitus extermination supervisor insulin use: without extermination supervisor use Qualified Code(s): E11.65 - Type 2 diabetes mellitus with hyperglycemia Plan: Decrease the amount of carbohydrate intake, pasta, bread, rice and potatoes are all sugar and that is aside from all the sweet stuff, remember that fruits are good but they are Sweet also. Hemoglobin A1c goal of less than 7.0 patient is under control on semaglutide (2) Hypothyroid: Code(s): E03.9 - Hypothyroidism, unspecified Category: Medical Plan: Continue with thyroid medication (3) Hypercholesterolemia: Code(s): E78.00 - Pure hypercholesterolemia, unspecified Category: Medical Plan: Avoid fried foods, chicken skin, eggs, butter margarine, pastries and meat. Be it pork or beef they have a lot of cholesterol LDL goal of less than 70 and triglyceride of less than 150 patient is on atorvastatin 80 mg once a day (4) Essential hypertension: Code(s): I10 - Essential (primary) hypertension Category: Medical Plan: Continue with blood pressure medication. Decrease salt intake and exercise patient is on metoprolol 100 mg once a day (5) Atherosclerotic cardiovascular disease: Code(s): I25.10 - Atherosclerotic heart disease of [place] coronary artery without angina pectoris Category: Medical Plan: Control the cholesterol, weight, blood pressure, diabetes on anticoagulation with Eliquis (6) PAF (paroxysmal atrial fibrillation): Comment: Cardioversion 12/04/2021 Code(s): I48.0 - Paroxysmal atrial fibrillation Category: Medical Plan: Continue with anticoagulation (7) Chronic heart failure with preserved ejection fraction (HFpEF): Code(s): I50.32 - Chronic diastolic (congestive) heart failure Category: Medical Plan: Weigh daily, continue with diuretics on furosemide 40 mg once a day (8) Interstitial lung disease: Comment: He has mild interstitial lung disease in the basilar areas, in addition to chronic congestive heart failure. He is doing very well at this time . Denies any significant amount of cough for shortness of breath. Code(s): J84.9 - Interstitial pulmonary disease, unspecified Category: Medical Plan: Stable Plan Plan Patient was informed and verbally consented to the use of an ambient scribe for clinic note documentation during this visit. 1. Diabetes Mellitus The patient's hemoglobin A1c is 5.8%, which is within the goal of less than 7.0%. Continue semaglutide at the current dose. The dose will not be increased to avoid worsening the side effect of nausea. 2. Hypercholesterolemia The LDL cholesterol is well-controlled at 46 mg/dL, below the goal of less than 70 mg/dL. Triglycerides are elevated at 214 mg/dL, above the goal of less than 150 mg/dL. Continue atorvastatin 80 mg once a day. No medication for tri glycerides will be added at this time; dietary management was discussed. 3. Hypertension And Atrial Fibrillation Continue metoprolol 100 mg once a day for blood pressure and rate control. Continue anticoagulation with Eliquis for atrial fibrillation. 4. Congestive Heart Failure The patient's condition is stable with a preserved ejection fraction of 50-55%. Continue furosemide 40 mg once a day and advise daily weight monitoring. 5. Hypothyroidism Thyroid function is normal, and no adjustment to the medication is needed. Continue current thyroid medication. 6. Dilatation Of Aorta The mild dilatation of the ascending aorta remains stable at 3.9 cm. Continued monitoring and control of blood pressure and cholesterol are dawson. 7. Constipation The constipation is believed to be a side effect of semaglutide. Since docusate alone is not effective, a prescription for a senna-docusate combination will be sent to [facility], with instructions to take one or two tablets at night. 8. Nausea The nausea is a side effect of semaglutide. A prescription for ondansetron (Zofran) will be sent for the patient to use as needed. Discussion Notes I reviewed the patient's recent lab work, noting good diabetic control with a hemoglobin A1c of 5.8%, excellent LDL cholesterol at 46 mg/dL, and stable kidney function. We discussed the elevated triglycerides of 214 mg/dL, and I advised that we would focus on diet for now rather than adding a new medication. We discussed that the echocardiogram from August 2023 showed the ascending aortic dilatation is stable and has not grown, and I reiterated the importance of controlling blood pressure and cholesterol to manage this. The patient reported nausea and constipation, and I explained these are known side effects of semaglutide. We agreed not to increase the semaglutide dose, and I will prescribe a senna-docusate combination for constipation and offered ondansetron for nausea. I advised the patient to get the second shingles vaccine and mentioned the possibility of temporary side effects like muscle aches. We will have a follow- up visit in three months. Patient Instructions - Continue taking all your current medications as prescribed, including those for cholesterol, blood pressure, heart failure, and diabetes. - We will keep your thyroid medication the same, as your lab results are normal. - Continue your semaglutide (Ozempic) at the current dose. - Be aware that your nausea and constipation are likely side effects of the semaglutide. - I have sent a prescription for a new constipation medicine (Senna with Docusate) to your [facility] pharmacy. You can take one or two tablets at night as needed. - I have also made a nausea medicine (Zofran) available for you if you need it. - Try to limit foods that can raise your triglycerides, which are a type of fat in your blood. - Please get your second shingles vaccine. - Continue to check your weight every day. - Please schedule a follow-up appointment in three months. Medications: New sennosides-docusate sodium 8.6-50 mg (Senna Plus) 2 tab-caps (2 x 8.6-50 mg) PO BEDTIME 180 caps 2RF
--- OUTSIDE RECORDS SUMMARY | 2025-06-29 10:30 | XMS_ITS | Data Portability ---
Author Organization [place] - [facility], Allergy Address [address] [address] Care Team Providers Care Automobile Sales Representative Name Role Phone ANTWANCARLA Primary Care Provider [...] KIRIT [facility], [address] , [facility] [address], [place], [address], 4 10:26:51 Patient TargetsNo targets recorded. Patient InstructionsNo instructions recorded. Reason for Referral None Reported. Problems Name Problem SNOMED Code Status Onset Date Resolution Date Notes Provider Name and Address Organization Details Recorded Time [facility] ce of salivary secretion 26372094 Active 2021 [facility] salivary secretion ; Note: Date Diagnosed : 2 4:44 PM (K11.7) Not Available [facility] 4 03:11:05 Chronic rhinitis 36326944 Active 2021 Chronic rhinitis; Note: Date Diagnosed : 2 4:44 PM (J31.0) Not Available [facility] 4 03:11:06 Feeling of lump in throat 937323334 Active 2023 DOUGLAS NARANJO MD [address] [facility],[place] [address], [place], [address] , [facility] - [facility] 4 10:19:36 Posterior rhinorrhe a 95869754 Active 2023 DOUGLAS NARANJO MD [address] [facility],[place] [address], [place], [address] , [facility] - [facility] 4 10:19:44 Ptosis of left upper eyelid 87154249111 9107 Active 2023 DOUGLAS NARANJO MD [address] [facility],[place] [address], [place], [address] , [facility] - [facility] 4 10:29:43 Allergic rhinitis 96770654 Active 2023 Silke márquez [place] - [facility] 4 13:36:28 Problem Notes None recorded. Procedures Surgical History Date Name Laterality Status Provider Name and Address Organization Details Recorded Time 06/30/20 24 Fiberoptic Laryngoscopy (Comprehensive) completed DOUGLAS OLVERA MD [address] [facility],[place] [address], [place], [address], [facility] - [facility] 06/30/2024 10:25:51 proximal subtotal gastrectomy by abdominal approach completed Harrison Garcia [place] - [facility] 06/30/2024 10:25:00 Imaging Results None recorded. Procedure Notes None recorded. Medical Equipment None Reported. Medications Name Sig Start Date Stop Date Status Note LastModified by Organization Details LastModified Time losartan 50 mg tablet active Medicati on ID: [id number] B rand Name: losartan Send Method: E-Prescr [...] 10 mg tablet active Medicati on ID: [id number] B rand Name: amlodipi ne Send Method: E-Prescr ibed Sub s Allowed: subs OK Medic ationGen ericName : amlodipi ne Not Available Not Available Not Available cephalexi n 500 mg capsule TAKE 1 CAPSULE BY MOUTH EVERY 6 HOURS FOR 7 DAYS 06/30 completed Not Available Not Available Not Available furosemid e 20 mg tablet active Medicati on ID: [id number] B rand Name: furosemi de Send Method: [...] Updated DateTime 06/30/2024 165.1 cm 29.5 kg/m2 51312.85 g Harrison Garcia [place] - [facility] 06/30/2024 09:57:49 Social History None recorded. Functional Status None recorded. Mental Status None recorded. Family History Nothing Reported. Medical History Condition Response Heart Problems Y Asthma Y Past Encounters Encounter ID Performer Location Encounter Start Date Encounter Closed Date Diagnosis/Indication Diagnosis SNOMED-CT Code Diagnosis ICD10 Code Diagnosis IMO Codes Diagnosis Note [id number] DOUGLAS NARANJO MD [facility] [address] [address] 06/30/2024 09:41:04 06/30/2024 10:32:04 Chronic rhinitis 48742630 J31.0 Patient with chronic nasal drainage, postnasal [...] left ptosis Feeling of lump in throat 648835111 R09.89 We also discussed that some of his symptoms are likely due to his known history of cricophary ngeal spasm. I do not see any pooling of secretions that would suggest significan t obstructio n requiring any interventi on. Posterior rhinorrhea 909 79307 R09.82 Ptosis of left upper eyelid 4698239865 98647 H02.402 Health Concerns Section Related Observation LastModified by Organization Detai ls LastModified Time None Recorded Concern Status LastModified by Organization Details LastModified Time None Recorded Advance Directives Directive None Recorded Payers Insurance Date Sequence Insurance Name Policy Number Policy Wallace Covered Member ID Wallace Member ID Guarantor Name 06/30/2024 1 [facility] [id number] 01 Augustus Reeder [id number] Augustus Reeder Notes Date Note Type Note Provider Name and Address Organization Details Recorded Time 4 text/htm l Last seen in 2021. Has chronic clear nasal d/c and PND. Frequently clearing his throat Using decongestant sprays intermittentlyPreviously given AtroventHx of cricopharyngeal spasm DOUGLAS OLVERA MD [address] [place] [address], [phone], [facility] - [facility] 06/30/2024 10:31:33
== END 2025-06-29 10:41 | disposition home or self-care (01) ==
LOC: HO.HMCH 09:48
PROVIDERS: PCP Internal Medicine; Visit Provider Internal Medicine
DX: E11.65 Type 2 diabetes mellitus with hyperglycemia (principal); E03.9 Hypothyroidism, unspecified; E78.00 Pure hypercholesterolemia, unspecified; I10 Essential (primary) hypertension; I25.10 Atherosclerotic heart disease of native coronary artery without angina pectoris; I48.0 Paroxysmal atrial fibrillation; I50.32 Chronic diastolic (congestive) heart failure; J84.9 Interstitial pulmonary disease, unspecified

== ENCOUNTER → 2025-06-29 09:47 | Outpatient (BNVA) | payer MEDICARE, SELFPAY | PROVIDERS: PCP Internal Medicine; Visit Provider Internal Medicine | DX: I11.0 Hypertensive heart disease with heart failure (principal); I50.32 Chronic diastolic (congestive) heart failure; I48.91 Unspecified atrial fibrillation; E11.51 Type 2 diabetes mellitus with diabetic peripheral angiopathy without gangrene; E11.65 Type 2 diabetes mellitus with hyperglycemia; E78.00 Pure hypercholesterolemia, unspecified; G47.33 Obstructive sleep apnea (adult) (pediatric); E03.9 Hypothyroidism, unspecified; I25.10 Atherosclerotic heart disease of native coronary artery without angina pectoris; I48.0 Paroxysmal atrial fibrillation; J84.9 Interstitial pulmonary disease, unspecified; K59.00 Constipation, unspecified; R11.0 Nausea; Z79.01 Long term (current) use of anticoagulants | CPT/HCPCS: 96127; 99212 ==

== ENCOUNTER 2025-07-12 09:33 | Outpatient (AMB) | payer MEDICARE, SELFPAY ==
--- NOTE | 2025-07-12 09:36 | MHC.OFFVIS ---
Vital Signs 07/12/25 09:43 Height 5 ft 5 in Weight 184 lb 1.376 oz BMI 30.6 BP 138/70 Blood Pressure Location Lt brachial Position Sitting Pulse 100 Pulse Source Pulse Oximeter Pulse Oximetry (%) 97 Oxygen Delivery Method Room Air Intake Visit Reasons: LARISSA/Restrictive Lung Disease Intake Note: pt is here for follow up and states he gets short of breath with exertion, sometimes with high pulse rate, and terrible cough, Claims Specialist Required: No Nuclear Medical Technologist: Nuclear Medical Technologist offered & declined Allergies amiodarone Adverse Reaction (Intermediate, Unverified 07/12/25 10:03) ILD amlodipine Adverse Reaction (Intermediate, Verified 07/12/25 10:03) leg swelling gabapentin Adverse Reaction (Intermediate, Verified 07/12/25 10:03) lethargy lisinopril Adverse Reaction (Intermediate, Verified 07/12/25 10:03) Cough metformin Adverse Reaction (Intermediate, Verified 07/12/25 10:03) lethargy Medication List - Last Reconciled 07/12/25 by Caitlin Mcduffie MD acetaminophen (Tylenol) 650 mg PO Q4H PRN albuterol sulfate 90 mcg/actuation 2 puffs inhalation Q4-6H PRN 60 days apixaban (Eliquis) 5 mg PO BID ascorbic acid (vitamin C) 250 mg PO DAILY atorvastatin 80 mg PO DAILY 90 days bethanechol chloride 50 mg PO BID 90 days blood sugar diagnostic (FreeStyle Test strips) Test once a day cholecalciferol (vitamin D3) (Vitamin D3) 25 mcg PO DAILY doxycycline hyclate 50 mg PO DAILY escitalopram oxalate 10 mg PO DAILY ferrous sulfate 325 mg PO DAILY furosemide 40 mg PO DAILY lancets (FreeStyle Lancets) Once a day levothyroxine 100 mcg PO DAILY@1100 90 days metoprolol succinate ER 100 mg PO DAILY 90 days metronidazole 1% (Metrogel) 1 appl topical BEDTIME multivitamin 1 tab PO DAILY nystatin 1 appl See Protocol topical TID 7 days pregabalin 50 mg PO BID semaglutide 0.5 mg (0.736 mL) subcut QWEEK 30 days sennosides-docusate sodium 8.6-50 mg (Senna Plus) 2 tab-caps (2 x 8.6-50 mg) PO BEDTIME tamsulosin 0.4 mg PO BEDTIME 90 days walker (Ultra-Light Rollator misc) As directed Do you need a note to return to daycare/school/sports/work: No HPI HPI LARISSA/Restrictive Lung Disease: Details: GUILLAUME, 79 YEARS OLD GENTLEMAN IS HERE FOR 6 MONTHS FOLLOW-UP. 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 HE USES ALBUTEROL INHALER ONLY P.R.N.. HIS MAIN PROBLEM IS THAT HE GETS SHORT OF BREATH ON MINIMAL EXERTION. AT NIGHTTIME HE SLEEPS IN AN EASY CHAIR AND WAKES UP WITH SOME GASPING AND SHORTNESS OF BREATH BUT HE SLEEPS BETTER IN RIGHT LATERAL POSITION. HE DOES HAVE OBSTRUCTIVE SLEEP APNEA BUT WAS NOT ABLE TO USE CPAP. HE DENIES HAVING HAD ANY ACUTE INFECTION OR EXACERBATION IN THE LAST 6 MONTHS. [facility] Medical History Interstitial lung disease Shingles CHF (congestive heart failure) Preop exam for internal medicine Bilateral pleural effusion Pneumonia Physical deconditioning CKD (chronic kidney disease) stage 3, GFR 30-59 ml/min (HFpEF) heart failure with preserved ejection fraction Obesity (BMI 30-39.9) LARISSA (obstructive sleep apnea) PAF (paroxysmal atrial fibrillation) Type 2 diabetes mellitus with unspecified complications Peptic ulcer disease Non Hodgkin's lymphoma Anxiety and depression Hypercholesterolemia Vitamin D deficiency Obesity (BMI 30-39.9) Type 2 diabetes mellitus with hyperglycemia Thrombocytopenia Surgical History Hx of cataract extraction History of esophagogastroduodenoscopy (EGD) H/O colonoscopy H/O lymph node biopsy History of shoulder surgery Family History Father Lung cancer Mother Breast cancer Sister Breast cancer Brother Substance use disorder Sister No problems noted. Son No problems noted. Daughter No problems noted. Social History Household Members: Spouse and Children Housing: House Are you a primary nonfarm animal caretaker to a significant other at home: No Do you presently have visiting nurse or other home services: No Alcohol intake: never Patient Tobacco Use Status: Never used Tobacco Tobacco use type: Cigarette e-Cigarette/Vaping Use: Never Used Second Hand Smoke Exposure: No Advance Directives Date on File: 12/19/21 service: No Current occupational status: retired Cognitive needs: Yes (Walker, cane) Hearing needs: No Vision needs: Yes (Glasses) Review of Systems Const All systems reviewed & are unremarkable except as noted in HPI and below Reports snoring Eyes Reports no additional complaints ENT Reports no additional complaints Card Reports irregular heart rhythm and Reports dyspnea on exertion Resp Denies cough, Reports dyspnea on exertion, Reports snoring and Denies wheezing GI Reports no additional complaints Reports nocturia Musc Reports no additional complaints Skin/Breast Reports system reviewed and no additional complaints, except as documented Neuro Reports no additional complaints Psych Reports no additional complaints Aller/Immun Denies wheezing Physical Exam Vital Signs: Last Vital Signs Pulse 100 07/12/25 09:43 BP 138/70 07/12/25 09:43 Pulse Ox 97 07/12/25 09:43 Oxygen Delivery Method Room Air 07/12/25 09:43 BMI result Body Mass Index 30.6 Has a round face. Narrow oropharynx, Mallampati class 4. Neck size 16-1/2 inch. Const General: comfortable, no acute distress, alert and awake Orientation/consciousness: patient oriented x3 HEENT Head: Yes normal to inspection General nose exam: No nasal polyps present and No nasal discharge present Face and sinus: Yes sinuses nontender Mouth: oropharynx abnormals (Narrow and crowded Mallampati class 4) Throat: Yes posterior oropharynx normal Eyes General: appearance normal, both eyes and all related structures Neck Neck: Yes normal visual inspection, Yes no lymphadenopathy, Yes trachea midline, Yes no JVD and Yes other (Neck circumference 16-1/2 inch) Thyroid: Thyroid normal Chest Chest palpation & inspection: normal inspection of the chest, normal palpation of entire chest wall and no tenderness Resp Other: Percussion note resonant, breath sounds are slightly distant, especially over the basilar areas. No wheezes or rhonchi or crepitations are heard . Cardio Palpation: normal PMI Rate: regular rate Rhythm: abnormal rhythm (HEART RATE VARIES FROM 80 PER MINUTE TO 140 PER MINUTE WHEN HE WALKS) Heart sounds: no gallops and no murmurs GI Palpation (GI): Soft to palpation, nontender, No hepatosplenomegaly present, no masses and Other GI palpation findings present (Abdomen is moderately obese and protuberant) Auscultation: normal bowel sounds Back/Spine/Pelvis Thoracic/Lumbar Spine: thoracic and lumbar spine normal to inspection Skin General skin exam: no rashes or lesions noted Neuro General: patient oriented x3 and no focal motor deficits Cranial nerves: Yes CN's II-XII intact bilaterally Extrem General: Yes normal to inspection, Yes no clubbing, cyanosis or edema and Yes no calf tenderness Psych Appearance: grossly normal and well kempt Speech and movement: Normal speech and movement present Office Procedures 6 Minute Walk Time:: 10:00 SPO2 % at rest: 95 Pulse at rest: 105 SPO2 % during excercise: 93 Pulse during excercise: 142 SPO2 % after excercise: 94 Pulse after excercise: 134 6 Minute Walk (with oxygen) Performance Observations: PT. WALKED FOR 150 Y, C/O OF HIP PAIN [id number] - 6 Minute Walk Results Reviewed Results Reviewed: 6 MINUTES WALK . WAS ABLE TO WALK FOR 6MINUTES, BUT SLOWLY, AND COMPLAINED OF RIGHT HIP PAIN. HEART RATE JUMPS UP TO 140-143 PER MINUTE, O2 SAT DID NOT DROP BELOW 93%. Assessment & Plan Assessment & Plan (1) Interstitial lung disease: Comment: He has mild interstitial lung disease in the basilar areas, in addition to chronic congestive heart He is doing very well at this time . Denies any significant amount of cough but does get short of breath on walking. I think this is due to combination of restrictive lung disease, ILD ,PAF ,and CHF . 6 MINUTES WALK TEST, DID NOT SHOW ANY EXERTIONAL HYPOXEMIA. Code(s): J84.9 - Interstitial pulmonary disease, unspecified Category: Medical Plan: USE ALBUTEROL 2 PUFFS Q 6 HOURS P.R.N. FOR BOUTS OF COUGH OR ANY WHEEZING. MAY CALL CARDIOLOGY AND SEE IF HE CAN BE SEEN EARLIER THAN HIS APPOINTMENT NEXT MONTH. CONTINUE TAKING LASIX 40 MG DAILY. I WILL ORDER HOME-BASED OVERNIGHT OXIMETRY RECORDING TO SEE IF HE HAS ANY NOCTURNAL HYPOXEMIA. (2) Restrictive lung disease: Comment: PULMONARY FUNCTION TEST SHOWS MODERATELY SEVERE RESTRICTIVE PULMONARY DISORDER, THIS IS BECAUSE OF COMBINATION CONGESTIVE HEART FAILURE AND INTERSTITIAL LUNG DISEASE. Code(s): J98.4 - Other disorders of lung Category: Medical Plan: TRY TO DO DEEP BREATHING EXERCISES 3 TIMES A DAY (3) LARISSA (obstructive sleep apnea): Comment: He does have history of obstructive sleep apnea but he is intolerant to the use of CPAP. Claims that he sleeps well in slightly propped up position. Code(s): G47.33 - Obstructive sleep apnea (adult) (pediatric) Category: Medical Plan: CONTINUE TO SLEEP IN PROPPED UP POSITION AND MOSTLY ON THE RIGHT SIDE. WILL CHECK OVERNIGHT OXYGEN . (4) Chronic heart failure with preserved ejection fraction (HFpEF): Comment: IN ADDITION TO ILD he has chronic congestive heart failure. Code(s): I50.32 - Chronic diastolic (congestive) heart failure Category: Medical Plan: Continue treatment as per Cardiology , may need to increase the amount of diuresis. (5) PAF (paroxysmal atrial fibrillation): Comment: Cardioversion 12/04/2021, he seems to be having paroxysmal atrial fibrillation today. Heart rate jumps up to 140-145 on minimal exertion. Code(s): I48.0 - Paroxysmal atrial fibrillation Category: Medical Plan: I advised him to keep his appointment with the cardiology service [facility] August 2025. He may need some agent to control heart rate Orders: Orders AMB 6 minute walk Today G47.33 - Obstructive sleep apnea (adult) (pediatric) Coding Level of Care Code Est Pt Level 4 (39198) Diagnoses Interstitial lung disease J84.9 Restrictive lung disease J98.4 LARISSA (obstructive sleep apnea) G47.33 Chronic heart failure with preserved ejection fraction (HFpEF) I50.32 PAF (paroxysmal atrial fibrillation) I48.0 CPT Codes Coding ([id number])
[2025-07-12 09:43] VITALS: BP 138/70; PULSE 100; O2SAT 97; BMI 30.6
[2025-07-12 10:16] VITALS: PULSE 105; O2SAT 95
== END 2025-07-12 10:18 | disposition home or self-care (01) ==
LOC: HO.HPS 09:34
PROVIDERS: PCP Internal Medicine; Visit Provider Internal Medicine
DX: J84.9 Interstitial pulmonary disease, unspecified (principal); J98.4 Other disorders of lung; G47.33 Obstructive sleep apnea (adult) (pediatric); I50.32 Chronic diastolic (congestive) heart failure; I48.0 Paroxysmal atrial fibrillation
CPT/HCPCS: 94618; 99214

== ENCOUNTER → 2025-07-12 09:33 | Outpatient (BNVA) | payer MEDICARE, SELFPAY | PROVIDERS: PCP Internal Medicine; Visit Provider Internal Medicine | DX: J84.9 Interstitial pulmonary disease, unspecified (principal); J98.4 Other disorders of lung; G47.33 Obstructive sleep apnea (adult) (pediatric); I50.32 Chronic diastolic (congestive) heart failure; I48.0 Paroxysmal atrial fibrillation | CPT/HCPCS: 94618; 99212 ==